=== PATIENT | male | born 1970 | race Caucasian/White ===

== ENCOUNTER 2023-06-09 10:46 | Inpatient (IN) ==
[2023-06-09] MEDS ORDERED: SODIUM CHLORIDE 0.9% 1,000 ML IV STA (11:25)
[2023-06-09] MEDS ORDERED: SODIUM CHLORIDE 0.9% 500 ML IV STA (11:25)
[2023-06-09] MEDS ORDERED: KETOROLAC TROMETHAMINE 15 MG/ML VIAL IV STA (11:25)
[2023-06-09] MEDS ORDERED: ONDANSETRON INJ 2 MG/ML 2 ML VIAL IV STA (11:25)
[2023-06-09 12:14] LABS: Albumin Globulin Ratio 0.9 (0.9-2); Albumin Level 2.9 gm/dl (3.4-5.0); BUN Creatinine Ratio 16.5 (10-20); Bilirubin,Total 0.6 mg/dl (0.2-1.0); Calcium 8.3 mg/dl (8.6-10.3); Creatinine Clr Calc Pharmacy 76.5 ml/min; Est GFR (African American) 110.3 ml/min; Est GFR (Non-African American) 95.2 ml/min; Globulin 3.3 gm/dl (2.5-4.0); Potassium 3.6 mmol/L (3.5-5.1); Total Protein 6.2 gm/dl (6.0-8.3)
[2023-06-09 12:20] LABS: INR 1.1 (0.9-1.1); Partial Thromboplastin Time 27.7 Seconds (21.0-31.0); Prothrombin Time 12.4 Seconds (9.0-12.0); Troponin I High Sensitivity 21.6 pg/ml (0-20)
[2023-06-09 12:53] LABS: Hematocrit (blood only) 37.8 % (42.0-52.0); Hemoglobin 13.2 g/dl (14.0-18.0); Mean Corpuscular Hemoglobin 30.1 pg (25.0-34.0); Mean Corpuscular Hgb Conc 34.9 g/dL (32.0-36.0); Mean Corpuscular Volume 86.3 fL (80.0-100.0); Mean Platelet Volume 10.1 fL (9.4-12.4); Platelet Count 562 K/uL (130-400); RDW Coefficient of Variation 12.2 % (11.5-14.5); RDW Standard Deviation 38.4 fL (36.4-46.3); Red Blood Count 4.38 M/uL (4.70-6.10); White Blood Count 14.55 K/ul (4.8-10.8)
[2023-06-09 12:59] LABS: ALC (manual) 0.73 K/uL (1.2-3.4); ANC (manual) 10.48 K/uL (1.4-6.5); Blast # (manual) 0.15 K/uL (0-0); Blast Cells % (manual) 1 %; Lymphocytes # (manual) 0.58 K/uL (1.2-3.4); Lymphocytes % (manual) 4 %; Metamyelocytes # (manual) 1.75 K/uL (0-0); Metamyelocytes % (manual) 12 %; Monocytes # (manual) 1.31 K/uL (0.11-0.59); Monocytes % (manual) 9 %; Myelocytes # (manual) 0.15 K/uL (0-0); Myelocytes % (manual) 1 %; Neutrophils # (manual) 10.48 K/uL (1.40-6.50); Neutrophils % (manual) 72 %; Plasma Cells # (manual) 0.15 K/uL (0-0); Plasma Cells % (manual) 1 %; RBC Morphology Unremarkable
[2023-06-09] MEDS ORDERED: OPTIRAY 320 100ml IV ONE (13:57)
--- NOTE | 2023-06-09 14:36 | CT Scan Report ---
CT OF THE ABDOMEN AND PELVIS WITH CONTRAST CLINICAL HISTORY: Abdominal pain and vomiting. Rectal bleeding. COMPARISON STUDY: None. TECHNIQUE: Following IV administration of 93 mL of Optiray, axial images of the abdomen and pelvis we re obtained from the lung bases to the proximal femurs. Images were reviewed in the axial, sagittal, and coronal planes. IV contrast was administered without complication. Automated exposure control wa s utilized for the study. A dose lowering technique was utilized adhering to the principles of ALARA . Oral contrast was administered. CT DOSE: 488.99 mGy.cm FINDINGS: Lung bases are unremarkable. No pneumatosis, free air or portal venous gas is present. Susp ected focal fat within the medial segment of the left hepatic lobe is noted. There is no biliary or p ancreatic ductal dilatation. Spleen, adrenal glands, kidneys and pancreas are unremarkable. There is no hydronephrosis. There is no evidence for acute appendicitis. There is moderate circumferential wal l thickening of the colon with mild pericolonic stranding. The pericolonic vessels are prominent. The re may be mild rectal wall thickening. The colon and rectum are mildly fluid-filled. There is no evid ence for a bowel obstruction. Major vasculature is patent. There is moderate plaque within the abdomi nal aorta. No fluid collections are present. There is trace fluid within the pelvis. IMPRESSION: Findings consistent with a pancolitis, moderate in severity. This is likely infectious o r inflammatory in etiology. No abscess. Trace pelvic fluid. ACT 112: Negative or not required by law. Electronically signed by: Andres Amanda M.D. 06/09/2023 2:34 PM
--- NOTE | 2023-06-09 16:19 | History & Physical Report ---
Date of Service June 09, 2023 Assessment & Plan (1) Pancolitis: Plan: Pancolitis, diarrhea, hematochezia - CT-A/P: Findings consistent with a pancolitis, moderate in severity. This is likely infectious or inflammatory in etiology. No abscess. Trace pelvic fluid. Case reviewed by GI Dr. Pruitt. Recommend deferring antibiotics until stool testing is resulted, GI consultation. No history of recent antibiotic use. No prior history of C. difficile. Denies history of IBD, denies family history of IBD Patient does report he had 1 episode of this around 5 years ago which spontaneously resolved after approximately 1 month Blast cell noted on cell differential, was reviewed by Dr. Suarez. Recommended peripheral smear, while some plasma cells/blast cells are noted these are likely reflective of underlying inflammation. Does not require transfer Leukocytosis of 14.5 Creatinine with normal baseline, 0.91 on admission Potassium 3.6, trend daily COVID-negative N.p.o., LR 100 cc/h Present records reviewed, HIV negative. History of iron deficiency with low ferritin and transferrin saturation. Hemoglobin is 13.2 and borderline microcytic at 86. Once active infection is treated can start on iron therapy Hematochezia likely from pancolitis, do not suspect upper GI bleed. Patient does report history of sour stomach, will continue on daily PPI prophylax (2) Elevated troponin: Plan: Elevated troponin 21.6, repeat normalized at 10.9 EKG: Sinus without territorial ischemic changes No chest pain per patient Following medical telemetry Endorses tobacco use, denies history of hypertension/[place]/CAD. Suspected stress ischemia Plan DVT prophylaxis: SCDs, heparin contraindicated in the setting of hematochezia CODE STATUS: Full code Disposition: Medical telemetry for troponin elevation and monitor Diet: N.p.o. History of Present Illness Primary Care Provider: IVIS Galan is a 53-year-old male with a past medical history of Who presented with nausea/vomiting is found to have pancolitis on CT "Mouse" reports he has had diarrhea for the last month. Has been bright red, dark red, and sometimes dark/black. Nause+vomiting in the last month. Is throwing up less because he is not eating much. Hasn't kep tfood down well since April. Had belly button pain x1 months. Water makes pain worse. Food makes gas pains a little better, but then gets nauseus and vomits. Vomit is 'whatever I ate' and was very dark-leonel black one time, but otherwise no blood. Last BM right before coming over. Loose/liquid. Less since not eating. 8-12BMs per day. no recent antibiotic treatment. Had a similar episode 5-6 eyars ago which got better in about 1 month. Did not have any workup at that time. Denies fevers, denies chills. No chest pain. No chest pressure Belly button/pit of stomach feels sour. No shortness of breath on admission No FHx of similar. Denies any medical problems in his familiy members. Denies prior medical problems. Denies history of IBS prior to now Medical History: Reviewed Medications: Reviewed Surgical History: Reviewed Family history: Reviewed Allergies: Reviewed. NKDA. Social History: Ecigarettes while in prisonlast 2 years. Prior 1ppd ~s46yllzo. Denies ETOH. Code Status: Full Code Allergies Allergy/AdvReac Type Severity Reaction Status Date / Time No Known Allergies Allergy Unverified 06/09/23 15:59 Home Medications Medication Instructions Recorded Confirmed Type bisacodyl 5 mg tablet 20 mg PO DAILY 06/09/23 06/09/23 History loperamide 2 mg tablet 2 mg PO UD PRN Diarrhea 06/09/23 06/09/23 History metoclopramide HCl 5 mg tablet 5 mg PO TID PRN as directed 06/09/23 06/09/23 History Past Med/Surg History Social History Smoking Status: Current every day smoker Feels Safe at Home: Yes Physical Exam Physical Exam: General: A&Ox3. NAD. Cooperative. HEENT: Atraumatic, normocephalic. Vision/hearing grossly intact. Pulm: CTAB A&P. -wheezes, -rales, -rhonchi. Symmetrical chest rise. No increased work of breathing. No respiratory distress. Cardiac: RRR, -mrg. Radial pulses intact and symmetrical. Abdominal: Soft .diffusely mildly tender to palpation without guarding/rebound tenderness. Extremities: Warm, dry. No edema. Results & Data Results & Data Vital Signs (Past 12 Hours) Vital Signs Temp Pulse Pulse Resp BP BP Pulse Ox 06/09/23 15:02 78 16 115/67 95 06/09/23 11:01 18 144/85 H 98 06/09/23 12:23 83 06/09/23 10:53 36.8 C 108 H 18 125/85 96 O2 Del Method 06/09/23 15:02 Room Air 06/09/23 11:01 Room Air 06/09/23 12:23 06/09/23 10:53 Room Air PG Care Time/CCT Total # of Minutes Spent Total Time Spent with Patient: Total time spent is greater than 50% in coordination of care (as documented) at patient's floor/unit and/or counseling patient: Coding Level of Care Code 74483 INT INP/OBS CARE 3/75MIN Diagnoses Pancolitis K51.00 Elevated troponin R77.8
--- NOTE | 2023-06-09 17:14 | Emergency Department Note ---
Impression & Plan Pancolitis, Elevated troponin, Leukocytosis ED Provider Note INFORMANT: Patient ED PROVIDER(S): Estuardo Jade MD CHIEF COMPLAINT: Abdominal pain and rectal bleeding PLAN: Disposition: Admitted Condition: Good Outpatient prescription management: none Referral: None MEDICAL DECISION MAKING: Patient present because of abdominal pain rectal bleeding. He has generalized tenderness on examination. Patient was treated with fluids, Zofran, and Toradol. Work-up was initiated. Patient was found to have a leukocytosis on CBC. Differential did show a left shift but he also had 1 blast cell[address] Patient underwent CT imaging and was found to have a pancolitis. Stool testing was ordered. Patient had ECG performed and had a nonspecific findings but no chest pain. Patient did have a borderline troponin. I did discuss the case with Dr. Pruitt of gastroenterology. He recommended stool testing before antibiotic administration and they will consult on the patient. Because of the black so I did discuss the case with Dr. Suarez of hematology. [place] that this was likely related to the inflammatory process going on from the GI standpoint. Did recommend official peripheral smear with path consult. This was ordered. Consultation was made with Dr. Angel Hinojosa of the [facility] service. Patient was evaluated in the ER for further management. Discussed with manager business systems After review of the information above and other included data, I feel the patien t requires admission. Triage Nursing notes reviewed and agree them. Vital Signs: reviewed and remarkable for no significant abnormalities Prior /Outside records reviewed: [facility] records were reviewed. Outpatient CBC unremarkable. Differential diagnosis: Etiologies such as gastroenteritis, food borne illness, infections, appendicitis, diverticulitis, inflammatory bowel disease, GI bleed, biliary pathology, as well as others were entertained. Diagnostics, as interpreted by me: ECG: Twelve-lead ECG reveals a sinus rhythm at [address] Prolonged QT interval Cardiac Monitoring: Cardiac monitoring ordered by me: The patient was placed on continuous cardiac monitoring and observed. It revealed a normal sinus rhythm at 70 beats per minute without ectopy or evidence of dysrhythmia. Medical decision rules: none Imaging studies: CT scan as above. Pancolitis. I refer you to the EMR for further details. HPI: The patient is a 53year old male prisoner who presents to the Emergency Room with complaints of rectal bleeding and abdominal pain. This started about 4 weeks ago and is worsening and the patient also noted about a 30 pound weight loss, nausea, vomiting, and poor appetite. Patient was sent to the emergency department for further evaluation. Pt denies LOC, headache, fevers, chills, diaphoresis, visual changes, neck pain, chest pain, breathing difficulties, back pain, melena, urinary symptoms, numbness, weakness, lymphadenopathy, rash, or other complaints. PAST MEDICAL HISTORY: See Below, patient denies GI history PAST SURGICAL HISTORY: See Below, denies abdominal surgery SOCIAL HISTORY: See Below, incarcerated HOME MEDICATIONS: See Below ALLERGIES: See Below VITALS: See Below PHYSICAL EXAMINATION: GENERAL: Awake, alert, mildly cachectic-appearing, in no distress HENT: Normocephalic, atraumatic. Oropharynx unremarkable. EYES: Normal conjunctiva. Sclera non-icteric. NECK: Inspection normal. Non-tender. Supple. No nuchal rigidity. FROM. No masses. RESPIRATORY: Clear to auscultation. No wheezes. No rales. Normal respiratory effort. CARDIAC: Normal rate. Normal rhythm. No murmurs. No rubs. Extremities warm and well perfused. Pulses equal. No JVD. GI: Soft, non-distended. Generalized tenderness to palpation. No rebound or guarding. No masses. RECTAL: Deferred. MUSCULOSKELETAL: Atraumatic. Chest examination reveals no tenderness. The back is symmetrical on inspection without obvious abnormality. There is no CVA tenderness to palpation. No joint edema. LOWER EXTREMITIES: Calves are equal size bilaterally and non-tender. No edema. No discoloration. NEURO: Normal sensorium. No sensory or motor deficits noted. SKIN: No rash or jaundice noted. Past Med/Surg History Social History Smoking Status: Current every day smoker Feels Safe at Home: Yes Allergies Allergies Allergy/AdvReac Type Severity Reaction Status Date / Time No Known Allergies Allergy Unverified 06/09/23 15:59 Home Meds Home Medications Medication Instructions Recorded Confirmed bisacodyl 5 mg tablet 20 mg PO DAILY 06/09/23 06/09/23 loperamide 2 mg tablet 2 mg PO UD PRN Diarrhea 06/09/23 06/09/23 metoclopramide HCl 5 mg tablet 5 mg PO TID PRN as directed 06/09/23 06/09/23 Results & Data (ED) Vital Signs Vital Signs - 24 hr 06/09/23 10:53 06/09/23 12:23 06/09/23 11:01 Temperature 36.8 C Temperature Source Temporal Artery Scan Pulse Rate 108 H 83 Pulse Rate [Left] Respiratory Rate 18 18 Respiratory Effort / Characteristics Non-Labored Spontaneous Non-Labored Respiratory Depth Normal Normal Respiratory Pattern Regular Blood Pressure 125/85 Blood Pressure [Left Arm] 144/85 H Blood Pressure Mean 98 Blood Pressure Mean [Left Arm] 104 Blood Pressure Position Sitting Blood Pressure Position [Left Arm] Sitting Pulse Oximetry 96 98 Oxygen Delivery Method Room Air Room Air Sepsis Recent Fever Within 48 Hours No Sepsis New/Unexplained Change in Mental Status N/A Sepsis Action Taken by Nursing No Action Required 06/09/23 15:02 Temperature Temperature Source Pulse Rate Pulse Rate [Left] 78 Respiratory Rate 16 Respiratory Effort / Characteristics Respiratory Depth Respiratory Pattern Blood Pressure Blood Pressure [Left Arm] 115/67 Blood Pressure Mean Blood Pressure Mean [Left Arm] 83 Blood Pressure Position Blood Pressure Position [Left Arm] Pulse Oximetry 95 Oxygen Delivery Method Room Air Sepsis Recent Fever Within 48 Hours Sepsis New/Unexplained Change in Mental Status Sepsis Action Taken by Nursing Laboratory Data 06/09/23 11:15 06/09/23 11:15 Lab Results 06/09/23 06/09/23 06/09/23 Range/Units 11:15 11:15 11:15 WBC 14.55 H (4.8-10.8) K/ul RBC 4.38 L (4.70-6.10) M/uL Hgb 13.2 L (14.0-18.0) g/dl Hct 37.8 L (42.0-52.0) % MCV 86.3 (80.0-100.0) fL MCH 30.1 (25.0-34.0) pg MCHC 34.9 (32.0-36.0) g/dL RDW Std Deviation 38.4 (36.4-46.3) fL RDW Coeff of Ashley 12.2 (11.5-14.5) % Plt Count 562 H (130-400) K/uL MPV 10.1 (9.4-12.4) fL Neutrophils % (Manual) 72 % Lymphocytes % (Manual) 4 % Monocytes % (Manual) 9 % Metamyelocytes % (Man) 12 % Myelocytes % (Man) 1 % Blast Cells % (Manual) 1 % Plasma Cell % (Manual) 1 % Neutrophils # (Manual) 10.48 H (1.40-6.50) K/uL Total Absolute Neuts 10.48 H (1.4-6.5) K/uL Lymphocytes # (Manual) 0.58 L (1.2-3.4) K/uL Total Abs Lymphocytes 0.73 L (1.2-3.4) K/uL Monocytes # (Manual) 1.31 H (0.11-0.59) K/uL Metamyelocytes # (Man) 1.75 H (0-0) K/uL Myelocytes # (Manual) 0.15 H (0-0) K/uL Blast Cells # (Man) 0.15 H (0-0) K/uL Plasma Cell # (Manual) 0.15 H (0-0) K/uL Blood Smear Review RBC Morphology Unremarkable PT 12.4 H (9.0-12.0) Seconds INR 1.1 (0.9-1.1) APTT 27.7 (21.0-31.0) Seconds PTT Ratio 1.0 Sodium 130 L (136-145) mmol/L Potassium 3.6 (3.5-5.1) mmol/L Chloride 89 L (98-107) mmol/L Carbon Dioxide 32 (21-32) mmol/L Anion Gap 9 (3-11) BUN 15 (6-23) mg/dl Creatinine 0.91 (0.6-1.4) mg/dl Est Cr Clr Drug Dosing 76.5 ml/min Est GFR ( Amer) 110.3 ml/min Est GFR (Non-Af Amer) 95.2 ml/min BUN/Creatinine Ratio 16.5 (10-20) Glucose 152 H (70-99(Fasting)) mg/dl Calcium 8.3 L (8.6-10.3) mg/dl Total Bilirubin 0.6 (0.2-1.0) mg/dl AST 15 (13-39) U/L ALT 12 (7-52) U/L Alkaline Phosphatase 70 (34-104) U/L Troponin I High Sens 21.6 H (0-20) pg/ml Total Protein 6.2 (6.0-8.3) gm/dl Albumin 2.9 L (3.4-5.0) gm/dl Globulin 3.3 (2.5-4.0) gm/dl Albumin/Globulin Ratio 0.9 (0.9-2) Lipase 28 (11-82) U/L SARS-CoV-2, RNA, NAAT (NEGATIVE) Blood Type Antibody Screen 06/09/23 06/09/23 06/09/23 Range/Units 11:40 12:27 14:06 WBC (4.8-10.8) K/ul RBC (4.70-6.10) M/uL Hgb (14.0-18.0) g/dl Hct (42.0-52.0) % MCV (80.0-100.0) fL MCH (25.0-34.0) pg MCHC (32.0-36.0) g/dL RDW Std Deviation (36.4-46.3) fL RDW Coeff of Ashley (11.5-14.5) % Plt Count (130-400) K/uL MPV (9.4-12.4) fL Neutrophils % (Manual) % Lymphocytes % (Manual) % Monocytes % (Manual) % Metamyelocytes % (Man) % Myelocytes % (Man) % Blast Cells % (Manual) % Plasma Cell % (Manual) % Neutrophils # (Manual) (1.40-6.50) K/uL Total Absolute Neuts (1.4-6.5) K/uL Lymphocytes # (Manual) (1.2-3.4) K/uL Total Abs Lymphocytes (1.2-3.4) K/uL Monocytes # (Manual) (0.11-0.59) K/uL Metamyelocytes # (Man) (0-0) K/uL Myelocytes # (Manual) (0-0) K/uL Blast Cells # (Man) (0-0) K/uL Plasma Cell # (Manual) (0-0) K/uL Blood Smear Review RBC Morphology PT (9.0-12.0) Seconds INR (0.9-1.1) APTT (21.0-31.0) Seconds PTT Ratio Sodium (136-145) mmol/L Potassium (3.5-5.1) mmol/L Chloride (98-107) mmol/L Carbon Dioxide (21-32) mmol/L Anion Gap (3-11) BUN (6-23) mg/dl Creatinine (0.6-1.4) mg/dl Est Cr Clr Drug Dosing ml/min Est GFR ( Amer) ml/min Est GFR (Non-Af Amer) ml/min BUN/Creatinine Ratio (10-20) Glucose (70-99(Fasting)) mg/dl Calcium (8.6-10.3) mg/dl Total Bilirubin (0.2-1.0) mg/dl AST (13-39) U/L ALT (7-52) U/L Alkaline Phosphatase (34-104) U/L Troponin I High Sens 10.9 D (0-20) pg/ml Total Protein (6.0-8.3) gm/dl Albumin (3.4-5.0) gm/dl Globulin (2.5-4.0) gm/dl Albumin/Globulin Ratio (0.9-2) Lipase (11-82) U/L SARS-CoV-2, RNA, NAAT NEGATIVE (NEGATIVE) Blood Type A Negative Antibody Screen NEGATIVE Administered Medications Sodium Chloride (Nss) 1,000 mls @ 125 mls/hr IV .Q8H STA Stop: 06/09/23 19:24 Last Admin: 06/09/23 12:18 Dose: 125 mls/hr Documented By: MT Discontinued Medications Sodium Chloride (Nss) 500 mls @ 999 mls/hr IV .Q31M STA Stop: 06/09/23 11:55 Last Infusion: 06/09/23 13:19 Dose: 0 mls/hr Documented By: Admin: 06/09/23 12:19 Dose: 999 mls/hr Documented By: GLEN Ioversol (Optiray 320 100ml) 93 ml IV ONCE ONE Stop: 06/09/23 13:58 Last Admin: 06/09/23 13:54 Dose: 93 ml Documented By: ABBY Ketorolac Tromethamine (Ketorolac Tromethamine 15 Mg/Ml Vial) 10 mg IV NOW STA Stop: 06/09/23 11:26 Last Admin: 06/09/23 12:17 Dose: 10 mg Documented By: MT Ondansetron HCl (Ondansetron Inj 2 Mg/Ml 2 Ml Vial) 4 mg IV NOW STA Stop: 06/09/23 11:26 Last Admin: 06/09/23 12:17 Dose: 4 mg Documented By: MT Imaging Data Radiologist's Impression: Abdomen/Pelvis CT 06/09/23 11:26 CT OF THE ABDOMEN AND PELVIS WITH CONTRAST CLINICAL HISTORY: Abdominal pain and vomiting. Rectal bleeding. COMPARISON STUDY: None. TECHNIQUE: Following IV administration of 93 mL of Optiray, axial images of the abdomen and pelvis were obtained from the lung bases to the proximal femurs. Images were reviewed in the axial, sagittal, and coronal planes. IV contrast was administered without complication. Automated exposure control was utilized for the study. A dose lowering technique was utilized adhering to the principles of ALARA. Oral contrast was administered. CT DOSE: 488.99 mGy.cm FINDINGS: Lung bases are unremarkable. No pneumatosis, free air or portal venous gas is present. Suspected focal fat within the medial segment of the left hepatic lobe is noted. There is no biliary or pancreatic ductal dilatation. Spleen, adrenal glands, kidneys and pancreas are unremarkable. There is no hydronephrosis. There is no evidence for acute appendicitis. There is moderate circumferential wall thickening of the colon with mild pericolonic stranding. The pericolonic vessels are prominent. There may be mild rectal wall thickening. The colon and rectum are mildly fluid-filled. There is no evidence for a bowel obstruction. Major vasculature is patent. There is moderate plaque within the abdominal aorta. No fluid collections are present. There is trace fluid within the pelvis. IMPRESSION: Findings consistent with a pancolitis, moderate in severity. This is likely infectious or inflammatory in etiology. No abscess. Trace pelvic fluid. ACT 112: Negative or not required by law. Electronically signed by: Andres Amanda M.D. 06/09/2023 2:34 PM Discharge Plan Visit Data Chief Complaint: Vomiting Stated Complaint: VOMITING ED Provider: Estuardo Jade Discharge Problem: Pancolitis, Elevated troponin, Leukocytosis Forms Stand Alone Forms: My [facility] [employer] Prescriptions Prescriptions: No Action loperamide [Anti-Diarrhea] 2 mg Tablet 2 mg PO UD MDD 4 tablets daily PRN (Reason: Diarrhea) Rx Instructions: take 1 tablet after each stool as needed but no more than 4 a day metoclopramide HCl 5 mg Tablet 5 mg PO TID PRN (Reason: as directed) bisacodyl 5 mg Tablet 20 mg PO DAILY Rx Instructions: 4 tablet dose Referrals Referrals: Sincere LANGSTON [Primary Care Provider] -
[2023-06-09 19:14] LABS: Adenovirus F 40/41 PCR Not Detected (NotDetected); Astrovirus PCR Not Detected (NotDetected); Campylobacter PCR Not Detected (NotDetected); Cryptosporidium PCR Not Detected (NotDetected); Cyclospora cayetanensis PCR Not Detected (NotDetected); Entamoeba histolytica PCR Not Detected (NotDetected); Enteroaggregative E.coli(EAEC) Not Detected (NotDetected); Enteropathogenic E.coli (EPEC) Not Detected (NotDetected); Enterotoxigenic E.coli (ETEC) Not Detected (NotDetected); Giardia lamblia PCR Not Detected (NotDetected); Norovirus GI/GII PCR Not Detected (NotDetected); Plesiomonas shigelloides PCR Not Detected (NotDetected); Rotavirus A PCR Not Detected (NotDetected); Salmonella PCR Not Detected (NotDetected); Sapovirus PCR Not Detected (NotDetected); Shiga-like Toxin E.coli (STEC) Not Detected (NotDetected); Shigella/Enteroinvasive E.coli Not Detected (NotDetected); Vibrio cholerae PCR Not Detected (NotDetected); Vibrio species PCR Not Detected (NotDetected); Yersinia enterocolitica PCR Not Detected (NotDetected)
[2023-06-09 21:28] LABS: Appearance Urine Clear (Clear); Bacteria Urine Automated Negative (Negative); Blood Urine Negative (Negative); Cast Urine Automated 0 /lpf (0-5); Color Urine Dark Yellow; Epithelial Cell Urine Auto >30 /lpf (0-5); Glucose Urine UA Negative (Negative); Ketones Urine Trace (Negative); Leukocyte Esterase Urine Negative (Negative); Nitrite Urine Negative (Negative); Protein Urine 1+ (Negative); Specific Gravity Urine > 1.045 (1.000-1.030); Urobilinogen Urine Negative (Negative); pH Urine 6.5 (4.5-7.5)
[2023-06-09 21:30] LABS: Bilirubin Urine 1+ (Negative)
[2023-06-09] MEDS ORDERED: MoRPHine SULFATE 2 MG/ML CARP IV STA (22:29)
[2023-06-09] MEDS: LACTATED RINGER'S 1,000 ML IV SCH (23:30)
[2023-06-10] MEDS: ONDANSETRON INJ 2 MG/ML 2 ML VIAL IV PRN ×2 (05:24→21:03)
[2023-06-10 06:26] LABS: BUN Creatinine Ratio 16.9 (10-20); Calcium 7.9 mg/dl (8.6-10.3); Creatinine Clr Calc Pharmacy 87.2 ml/min; Est GFR (African American) 119.2 ml/min; Est GFR (Non-African American) 102.9 ml/min; Potassium 3.8 mmol/L (3.5-5.1)
[2023-06-10 06:52] LABS: Basophils # (auto) 0.03 K/uL (0.00-0.20); Basophils % (auto) 0.2 %; Echinocytes 1+; Eosinophils # (auto) 0.01 K/uL (0.00-0.50); Eosinophils % (auto) 0.1 %; Hemoglobin 12.5 g/dl (14.0-18.0); Immature Granulocytes # (auto) 0.23 K/uL (0.01-0.20); Immature Granulocytes % (auto) 1.3 %; Lymphocytes % (auto) 6.3 %; Mean Corpuscular Hemoglobin 29.8 pg (25.0-34.0); Mean Corpuscular Hgb Conc 33.8 g/dL (32.0-36.0); Mean Corpuscular Volume 88.1 fL (80.0-100.0); Mean Platelet Volume 10.2 fL (9.4-12.4); Monocytes # (auto) 1.11 K/uL (0.11-0.59); Monocytes % (auto) 6.4 %; Neutrophils # (auto) 14.85 K/uL (1.40-6.50); Neutrophils % (auto) 85.7 %; Platelet Count 536 K/uL (130-400); Polychromasia 1+; RDW Coefficient of Variation 12.2 % (11.5-14.5); RDW Standard Deviation 39.1 fL (36.4-46.3); White Blood Count 17.33 K/ul (4.8-10.8)
[2023-06-10] MEDS: LACTATED RINGER'S 1,000 ML IV SCH ×2 (07:43→15:36)
[2023-06-10] MEDS: MoRPHine SULFATE 2 MG/ML CARP IV PRN ×4 (07:47→21:08)
[2023-06-10] MEDS: ACETAMINOPHEN 1,000 MG/100 ML VIAL IV PRN (09:21)
--- NOTE | 2023-06-10 09:22 | Gastrointestinal Consultation ---
Date of Consultation June 10, 2023 Assessment & Plan (1) Pancolitis: Patient with one month history of abdominal pain and bloody diarrhea. CT suggestive of moderate pancolitis. stool biofire testing unremarkable. discussed case with Dr. Pruitt. - discussed colonoscopy with patient and he was agreeable to having done. - will start clear liquids today and prep today with plan to perform a colonoscopy tomorrow 06/11. Supervising Physician Co-Signing Physician Notes Agree with CAS Martel as above Abd: Soft, NT, ND, +BS Continue current therapy and supportive care Bowel prep today, then NPO Colonoscopy in AM History of Present Illness Reason for Consultation: Pancolitis Requesting Physician: Angel Hinojosa MD Attending Physician: Tj Keller MD History of Present Illness Patient is a 53 year old male who currently is incarcerated at [facility]. He tells me that over the past month he has had symptoms of abdominal pain that is diffuse and bloody diarrhea. He admits he can have as many as 12 bowel movements a day. This has effected his appetite. He tells me symptoms can be worse with eating. Admits to periodic nausea/vomiting, but he admits this has not been as much of an issue lately. He tells me he is getting pain control while inpatient. He had a similar episode back in 2016 that he tells me lasted for a month and then resolved on its own. He was brought to the ED for evaluation and had a CT done showing pancolitis that is moderate in severity, likely infectious or inflammatory in nature. Stool biofire testing unremarkable. he denies any family history of IBD. He denies nsaid use. he tells me he has never had any endoscopic evaluation. he denies any dysphagia, heartburn, or melena. Two guards from the long-term were present for history taking and physical exam. Allergies Allergy/AdvReac Type Severity Reaction Status Date / Time No Known Allergies Allergy Unverified 06/09/23 15:59 Home Medications Medication Instructions Recorded Confirmed Type bisacodyl 5 mg tablet 20 mg PO DAILY 06/09/23 06/09/23 History loperamide 2 mg tablet 2 mg PO UD PRN Diarrhea 06/09/23 06/09/23 History metoclopramide HCl 5 mg tablet 5 mg PO TID PRN as directed 06/09/23 06/09/23 History Patient History Social History Smoking Status: Current every day smoker Tobacco Type: E-cigarettes / Vaping Hx Alcohol Use: No Hx Substance Use: No Preferred Language: Frisian Communication Ability: Effective Market Relationship Manager Required: No Beliefs That Will Affect Care: None Current Living Situation: Other Current Living Situation Comment: Correctional facility Feels Safe at Home: Yes Assistive Devices: Hearing Aid - Bilateral Review of Systems Review of Systems: All systems reviewed & are unremarkable except as noted in HPI & below Physical Exam Constitutional: WD/WN, vitals as above ENMT: patient is hard of hearing. uses hearing aids. Respiratory: normal respiratory effort, lungs clear to auscultation Cardiovascular: RRR, no murmur, no edema Gastrointestinal (Abdomen): diffuse tenderness to palpation, no guarding, soft. normal bowel sounds. Skin: no rashes, warm and dry Psychiatric: Orientation: alert and oriented x 3 Results & Data Vital Signs (Past 12 Hours) Vital Signs Temp Pulse Pulse Pulse Resp BP Pulse Ox 06/10/23 07:25 98 H 06/10/23 07:10 98.1 F 98 H 18 127/76 97 06/10/23 03:37 98.4 F 96 H 16 106/68 96 06/09/23 23:12 92 H 06/09/23 23:00 90 18 135/81 93 06/09/23 22:54 94 H 18 95 06/09/23 22:39 95 H 16 96 O2 Del Method 06/10/23 07:25 06/10/23 07:10 Room Air 06/10/23 03:37 Room Air 06/09/23 23:12 06/09/23 23:00 Room Air 06/09/23 22:54 Room Air 06/09/23 22:39 Room Air PG Care Time/CCT Total # of Minutes Spent Total Time Spent with Patient: Total time spent is greater than 50% in coordination of care (as documented) at patient's floor/unit and/or counseling patient: Coding Level of Care Code 18794 IN/OBS CONSULT LVL 4,60M Diagnoses Pancolitis K51.00 Time Spent (min) 64
--- NOTE | 2023-06-10 09:26 | Hospitalist Progress Note ---
Date of Service June 10, 2023 Assessment & Plan (1) Pancolitis: Plan: Pancolitis, diarrhea, hematochezia - CT-A/P: Findings consistent with a pancolitis, moderate in severity. Case reviewed by GI Dr. Pruitt. Recommend deferring antibiotics until stool testing is resulted, GI consultation. No history of recent antibiotic use. No prior history of C. difficile. - stool biofire, Covid and C Diff NEGATIVE Blast cell noted on cell differential, was reviewed by Dr. Suarez. Recommended peripheral smear, while some plasma cells/blast cells are noted these are likely reflective of underlying inflammation. clear liquid diet npo after mn, LR 100 cc/h Present records reviewed, HIV negative. History of iron deficiency with low ferritin and transferrin saturation. Hemoglobin is 13.2 and borderline microcytic at 86. Once active infection is treated can start on iron therapy Hematochezia likely from pancolitis, do not suspect upper GI bleed. prep for colonoscopy 06/11 ordered by Gastroenterology (2) Elevated troponin: Plan: Elevated troponin 21.6, repeat normalized at 10.9 EKG: Sinus without territorial ischemic changes No chest pain per patient Endorses tobacco use, denies history of hypertension/[place]/CAD. Suspected demand ischemia Plan DVT prophylaxis: SCDs, heparin contraindicated in the setting of hematochezia CODE STATUS: Full code Admission and Anticipated Discharge Date Admission Date: June 09, 2023 Subjective pt is with persistent diarrhea, has epigastric and LLQ abdominal pain tenative colonoscopy on 06/11/23 Physical Exam Physical Exam: pt is with abdominal pain, mostly LLQ pain Results & Data Results & Data Vital Signs (Past 12 Hours) Vital Signs Temp Pulse Pulse Pulse Resp BP Pulse Ox 06/10/23 07:25 98 H 06/10/23 07:10 98.1 F 98 H 18 127/76 97 06/10/23 03:37 98.4 F 96 H 16 106/68 96 06/09/23 23:12 92 H 06/09/23 23:00 90 18 135/81 93 06/09/23 22:54 94 H 18 95 06/09/23 22:39 95 H 16 96 O2 Del Method 06/10/23 07:25 06/10/23 07:10 Room Air 06/10/23 03:37 Room Air 06/09/23 23:12 06/09/23 23:00 Room Air 06/09/23 22:54 Room Air 06/09/23 22:39 Room Air Laboratory Results reviewed cbc reviewed prp PG Care Time/CCT Total # of Minutes Spent Total Time Spent with Patient: Total time spent is greater than 50% in coordination of care (as documented) at patient's floor/unit and/or counseling patient: Coding Level of Care Code 57353 SUB INP/OBS CARE 2/35MIN Diagnoses Pancolitis K51.00 Elevated troponin R77.8
[2023-06-10] MEDS: PANTOprazole 40 MG in SYRINGE 0 ML IV SCH (12:12)
[2023-06-10] MEDS: LAVAGE SOLUTION 4000ML PO SCH ×2 (15:36→22:20)
[2023-06-10] MEDS ORDERED: FAMOTIDINE 20 MG in SYRINGE 3 ML IV STA (22:12)
[2023-06-11] MEDS ORDERED: ONDANSETRON INJ 2 MG/ML 2 ML VIAL IV STA (00:34)
[2023-06-11] MEDS: LACTATED RINGER'S 1,000 ML IV SCH ×3 (00:59→17:34)
[2023-06-11] MEDS ORDERED: Nursing to Pharmacy Communication SCH (02:00)
[2023-06-11] MEDS: ONDANSETRON INJ 2 MG/ML 2 ML VIAL IV PRN ×2 (04:03→19:18)
[2023-06-11 06:28] LABS: Basophils # (auto) 0.01 K/uL (0.00-0.20); Basophils % (auto) 0.1 %; Dohle Bodies 1+; Echinocytes 1+; Eosinophils # (auto) 0.02 K/uL (0.00-0.50); Eosinophils % (auto) 0.1 %; Hematocrit (blood only) 31.3 % (42.0-52.0); Hemoglobin 10.8 g/dl (14.0-18.0); Immature Granulocytes # (auto) 0.21 K/uL (0.01-0.20); Immature Granulocytes % (auto) 1.5 %; Lymphocytes # (auto) 0.89 K/uL (1.20-3.40); Lymphocytes % (auto) 6.3 %; Mean Corpuscular Hemoglobin 30.1 pg (25.0-34.0); Mean Corpuscular Hgb Conc 34.5 g/dL (32.0-36.0); Mean Corpuscular Volume 87.2 fL (80.0-100.0); Mean Platelet Volume 9.8 fL (9.4-12.4); Monocytes # (auto) 1.13 K/uL (0.11-0.59); Neutrophils # (auto) 11.86 K/uL (1.40-6.50); Platelet Count 517 K/uL (130-400); RDW Coefficient of Variation 12.6 % (11.5-14.5); Red Blood Count 3.59 M/uL (4.70-6.10); Toxic Granulation 1+; Toxic Vacuolation 1+; White Blood Count 14.12 K/ul (4.8-10.8)
[2023-06-11 06:36] LABS: BUN Creatinine Ratio 17.1 (10-20); Calcium 7.4 mg/dl (8.6-10.3); Potassium 3.7 mmol/L (3.5-5.1)
--- NOTE | 2023-06-11 08:57 | Anesthesiology Consultation ---
Date of Service June 11, 2023 Assessment & Plan (1) Encounter for pre-operative examination: Chart Review Chart Review: Acceptable Risk for Surgery, Patient NOT seen in Pre Admission Testing and entry operator initiated Consults Requested none Proposed Anesthesia Anesthesia Type: MAC History Surgery Operation Date: 06/11/23 16:30 Proposed Procedures p Colonoscopy Dr. Edmond Walker Case, DO Height/Weight Height: 5 ft 4 in Weight: 60.781 kg Allergies Allergy/AdvReac Type Severity Reaction Status Date / Time No Known Allergies Allergy Unverified 06/09/23 15:59 Medications Home Medications Medication Instructions Recorded Confirmed Last Taken bisacodyl 5 mg tablet 20 mg PO DAILY 06/09/23 06/09/23 Unknown loperamide 2 mg tablet 2 mg PO UD PRN Diarrhea 06/09/23 06/09/23 Unknown metoclopramide HCl 5 mg tablet 5 mg PO TID PRN as directed 06/09/23 06/09/23 Unknown Active Medications Generic Name Dose Route Start Last Admin Trade Name Freq PRN Reason Stop Dose Admin Acetaminophen 1,000 mg in 100 mls @ 400 mls/hr 06/09/23 23:04 06/10/23 09:54 Ofirmev IV 06/12/23 23:03 Infused Q8H PRN Infusion Fever/Mild Pain (Pain 1,2,3) Pantoprazole Sodium 40 mg/ 10 mls @ 5 mls/min 06/10/23 11:00 06/10/23 12:12 Syringe IV 07/10/23 10:59 5 mls/min DAILY@1100 HERNESTO Administration Lactated Ringer's 1,000 mls @ 125 mls/hr 06/09/23 23:04 06/11/23 00:59 Lr IV 07/09/23 23:03 125 mls/hr .Q8H HERNESTO Administration Morphine Sulfate 2 mg 06/09/23 23:04 06/10/23 21:08 Morphine Sulfate 2 Mg/Ml Carp IV 06/23/23 23:03 2 mg Q4H PRN Administration pain, 2nd line Ondansetron HCl 4 mg 06/09/23 23:04 06/11/23 04:03 Ondansetron Inj 2 Mg/Ml 2 Ml Vial IV 07/09/23 23:03 4 mg Q6H PRN Administration Nausea Past Medical History Medical History (Updated 06/11/23 @ 08:56 by Prince Hollis MD) Encounter for pre-operative examination Social History Smoking Status: Current every day smoker Hx Alcohol Use: No Hx Substance Use: No Physical Exam Vital Signs Last Vital Signs Temp 36.8 C 06/11/23 07:39 Pulse 91 H 06/11/23 07:39 Resp 18 06/11/23 07:39 BP 130/77 06/11/23 07:39 Pulse Ox 95 06/11/23 07:39 O2 Del Method Room Air 06/11/23 07:39 Testing Laboratory Results 06/11/23 05:20 06/11/23 05:20 PT 12.4 Seconds (9.0-12.0) H 06/09/23 11:15 INR 1.1 (0.9-1.1) 06/09/23 11:15 APTT 27.7 Seconds (21.0-31.0) 06/09/23 11:15 Urine Color Dark Yellow 06/09/23 20:54 Urine Appearance Clear (Clear) 06/09/23 20:54 Urine pH 6.5 (4.5-7.5) 06/09/23 20:54 Ur Specific [place] > 1.045 (1.000-1.030) H 06/09/23 20:54 Urine Protein 1+ (Negative) H 06/09/23 20:54 Urine Glucose (UA) Negative (Negative) 06/09/23 20:54 Urine Ketones Trace (Negative) H 06/09/23 20:54 Urine Nitrite Negative (Negative) 06/09/23 20:54 Ur Leukocyte Esterase Negative (Negative) 06/09/23 20:54 Urine WBC (Auto) 5-10 /hpf (0-5) H 06/09/23 20:54 Urine RBC (Auto) 5-10 /hpf (0-4) H 06/09/23 20:54 U Hyaline Cast (Auto) 0 /lpf (0-5) 06/09/23 20:54 U Epithel Cells (Auto) >30 /lpf (0-5) H 06/09/23 20:54 Urine Bacteria (Auto) Negative (Negative) 06/09/23 20:54 Blood Type A Negative 06/09/23 11:40 Antibody Screen NEGATIVE 06/09/23 11:40 Electrocardiogram Date: 06/09/23 6 09-JUN-2023 11:05:10 [facility]-EDSTAT ROUTINE RETRIEVAL Accelerated Junctional rhythm with retrograde conduction Nonspecific ST abnormality Prolonged QT Abnormal ECG No previous ECGs available 25mm/s10mm/[id number] 243CID: 19Unconfirmed Vent. rate 87 BPM OR interval * ms QRS duration 108 ms QT/QTc 406/488 ms.
--- NOTE | 2023-06-11 10:18 | Gastroenterology Progress Note ---
Date of Service June 11, 2023 Assessment & Plan (1) Pancolitis: Plan: I explained to the patient why the prep is needed. questions answered on the prep. I explained to the patient that we can reattempt the prep on Wednesday to have colonoscopy on Wednesday. I discussed the case with Dr. Pruitt. In the meantime, will start patient on solumedrol 40mg IV bid and assess how he does with this. Admission and Anticipated Discharge Date Admission Date: June 09, 2023 Supervising Physician Co-Signing Physician Notes Agree with CAS Martel as above Abd: Soft, NT, ND Continue current therapy and supportive care Added Solu-medrol 40 mg IV BID Will attempt colonoscopy on 06/14/2023 if patient can tolerate bowel prep Subjective Patient was to prep yesterday but did not complete this. Nursing tells me that he did not even drink a full glass of the prep. He tells me he is not sure why he had to drink the prep. he tells me he did have several bowel movements yesterday. he reports blood in them. He also reports continued abdominal pain. no reported nausea, vomiting, chest pain, or SOB. 06/11/23 hgb 10.8, hct 31.3, wbc 14.12, platelets 517 Physical Exam Constitutional: WD/WN, vitals as above Respiratory: normal respiratory effort, lungs clear to auscultation Cardiovascular: RRR, no murmur, no edema Gastrointestinal (Abdomen): left sided tenderness on exam, no guarding, soft, normal bowel sounds. Skin: no rashes, warm and dry Psychiatric: Orientation: alert and oriented x 3 Results & Data Results & Data Vital Signs (Past 12 Hours) Vital Signs Temp Pulse Pulse Resp BP BP Pulse Ox 06/11/23 07:39 98.2 F 91 H 18 130/77 95 06/11/23 07:08 94 H 06/11/23 04:07 98.1 F 97 H 18 109/65 97 O2 Del Method 06/11/23 07:39 Room Air 06/11/23 07:08 06/11/23 04:07 Room Air PG Care Time/CCT Total # of Minutes Spent Total Time Spent with Patient: Total time spent is greater than 50% in coordination of care (as documented) at patient's floor/unit and/or counseling patient: Coding Level of Care Code 53028 SUB INP/OBS CARE 2/35MIN Diagnoses Pancolitis K51.00 Time Spent (min) 40
[2023-06-11] MEDS: PANTOprazole 40 MG in SYRINGE 0 ML IV SCH (11:31)
--- NOTE | 2023-06-11 18:35 | Hospitalist Progress Note ---
Date of Service June 11, 2023 Assessment & Plan (1) Pancolitis: Plan: Pancolitis, diarrhea, hematochezia - CT-A/P: Findings consistent with a pancolitis, moderate in severity. Case reviewed by GI Dr. Pruitt. Recommend deferring antibiotics until stool testing is resulted, GI consultation. No history of recent antibiotic use. No prior history of C. difficile. - stool biofire, Covid and C Diff NEGATIVE Blast cell noted on cell differential, was reviewed by Dr. Suarez. Recommended peripheral smear, while some plasma cells/blast cells are noted these are likely reflective of underlying inflammation. clear liquid diet npo after mn, LR 100 cc/h Present records reviewed, HIV negative. History of iron deficiency with low ferritin and transferrin saturation. Hemoglobin is 13.2 and borderline microcytic at 86. Once active infection is treated can start on iron therapy Hematochezia likely from pancolitis, do not suspect upper GI bleed. prep for colonoscopy was not taken, colonoscopy postphoned until next week (2) Elevated troponin: Plan: Elevated troponin 21.6, repeat normalized at 10.9 EKG: Sinus without territorial ischemic changes No chest pain per patient Endorses tobacco use, denies history of hypertension/[place]/CAD. Suspected demand ischemia Plan DVT prophylaxis: SCDs, heparin contraindicated in the setting of hematochezia CODE STATUS: Full code Admission and Anticipated Discharge Date Admission Date: June 09, 2023 Subjective Patient's colonoscopy was postponed for an additional 2 days because the patient did not drink his GoLytely prep. Patient told me that he was still having bloody bowel movements and did not feel he needed to drink his colostomy prep. I reeducated the patient once again as I did the day before that he needs to drink his colostomy prep so they would be able to see within his bowel however he did not do this and will now stay till June 14 and hopefully have colonoscopy that Physical Exam Physical Exam: pt is with abdominal pain, mostly LLQ pain Results & Data Results & Data Vital Signs (Past 12 Hours) Vital Signs Temp Pulse Pulse Resp BP Pulse Ox O2 Del Method 06/11/23 15:19 96 H 06/11/23 15:08 98.8 F 89 18 144/74 H 94 Room Air 06/11/23 11:39 98.4 F 85 18 150/81 H 94 Room Air 06/11/23 07:39 98.2 F 91 H 18 130/77 95 Room Air 06/11/23 07:08 94 H Laboratory Results Normal CBC normal chemistry PG Care Time/CCT Total # of Minutes Spent Total Time Spent with Patient: Total time spent is greater than 50% in coordination of care (as documented) at patient's floor/unit and/or counseling patient: Coding Level of Care Code 56002 SUB INP/OBS CARE 2/35MIN Diagnoses Pancolitis K51.00 Elevated troponin R77.8
[2023-06-11] MEDS: ACETAMINOPHEN 1,000 MG/100 ML VIAL IV PRN (19:18)
--- NOTE | 2023-06-11 21:08 | Electrocardiogram Report ---
Test Reason : Blood Pressure : / mmHG Vent. Rate : 087 BPM Atrial Rate : 087 BPM P-R Int : 120 ms QRS Dur : 108 ms QT Int : 368 ms P-R-T Axes : 000 014 064 degrees QTc Int : 443 ms Normal sinus rhythm Nonspecific ST abnormality Abnormal ECG No previous ECGs available Confirmed by Vasiliy Ramirez ([id number]) on 06/11/2023 9:08:22 PM Referred By: Confirmed By:Vasiliy Ramirez
[2023-06-11] MEDS: methylPREDNISolone 40 MG in SYRINGE 0 ML IV SCH (21:09)
[2023-06-12] MEDS: LACTATED RINGER'S 1,000 ML IV SCH ×3 (01:56→16:23)
[2023-06-12] MEDS: ONDANSETRON INJ 2 MG/ML 2 ML VIAL IV PRN ×3 (05:37→21:40)
[2023-06-12] MEDS: ACETAMINOPHEN 1,000 MG/100 ML VIAL IV PRN ×2 (05:38→13:58)
[2023-06-12 05:48] LABS: Hematocrit (blood only) 31.3 % (42.0-52.0); Hemoglobin 10.8 g/dl (14.0-18.0); Mean Corpuscular Hgb Conc 34.5 g/dL (32.0-36.0); Mean Corpuscular Volume 86.9 fL (80.0-100.0); Mean Platelet Volume 9.3 fL (9.4-12.4); Platelet Count 504 K/uL (130-400); RDW Coefficient of Variation 12.4 % (11.5-14.5); RDW Standard Deviation 39.6 fL (36.4-46.3); White Blood Count 13.65 K/ul (4.8-10.8)
[2023-06-12 05:59] LABS: BUN Creatinine Ratio 18.6 (10-20); Calcium 7.7 mg/dl (8.6-10.3); Creatinine Clr Calc Pharmacy 119.8 ml/min; Est GFR (Non-African American) 114.8 ml/min; Potassium 3.8 mmol/L (3.5-5.1)
[2023-06-12 06:28] LABS: Basophils # (auto) 0.01 K/uL (0.00-0.20); Basophils % (auto) 0.1 %; Echinocytes 1+; Immature Granulocytes # (auto) 0.24 K/uL (0.01-0.20); Immature Granulocytes % (auto) 1.8 %; Lymphocytes # (auto) 0.49 K/uL (1.20-3.40); Lymphocytes % (auto) 3.6 %; Monocytes # (auto) 0.58 K/uL (0.11-0.59); Monocytes % (auto) 4.2 %; Neutrophils # (auto) 12.33 K/uL (1.40-6.50); Neutrophils % (auto) 90.3 %
[2023-06-12] MEDS: PANTOprazole 40 MG in SYRINGE 0 ML IV SCH (10:09)
[2023-06-12] MEDS: methylPREDNISolone 40 MG in SYRINGE 0 ML IV SCH ×2 (10:09→20:01)
[2023-06-12] MEDS: SENNA 8.6 MG TAB PO SCH (10:09)
[2023-06-12] MEDS ORDERED: oxyCODONE HCL IR 5 MG TAB (IMMEDIATE RELEASE) PO PRN (14:12)
--- NOTE | 2023-06-12 14:16 | Hospitalist Progress Note ---
Date of Service June 12, 2023 Assessment & Plan (1) Pancolitis: Plan: Pancolitis, diarrhea, hematochezia - CT-A/P: Findings consistent with a pancolitis, moderate in severity. Case reviewed by GI Dr. Pruitt. Recommend deferring antibiotics until stool testing is resulted, GI consultation. No history of recent antibiotic use. No prior history of C. difficile. - stool biofire, Covid and C Diff NEGATIVE Blast cell noted on cell differential, was reviewed by Dr. Suarez. Recommended peripheral smear, while some plasma cells/blast cells are noted these are likely reflective of underlying inflammation. patient remain on a liquid diet over the weekend for preparation of colonoscopy on June 14. Remains on intravenous fluids Present records reviewed, HIV negative. History of iron deficiency with low ferritin and transferrin saturation. Hemoglobin is 13.2 and borderline microcytic at 86. Once active infection is treated can start on iron therapy Hematochezia likely from pancolitis, do not suspect upper GI bleed. prep for colonoscopy was not taken, colonoscopy postphoned until next week if abdominal pain persists and is significant may consider reimaging with CT scan to be sure there is no transmural or intramural issues (2) Elevated troponin: Plan: Elevated troponin 21.6, repeat normalized at 10.9 EKG: Sinus without territorial ischemic changes No chest pain per patient Endorses tobacco use, denies history of hypertension/[place]/CAD. Suspected demand ischemia patient has been stable and transferred off telemetry all medications and orders reviewed 06/12/2020 Plan DVT prophylaxis: SCDs, heparin contraindicated in the setting of hematochezia CODE STATUS: Full code Admission and Anticipated Discharge Date Admission Date: June 09, 2023 Subjective patient biggest concern is his complaints of abdominal pain. It is difficult to tell if he is having abdominal pain or secondary gain but he request pain medications when he takes his GoLytely preparation Physical Exam Physical Exam: pt is with abdominal pain, mostly LLQ pain this is without rebound or guarding Results & Data Results & Data Vital Signs (Past 12 Hours) Vital Signs Temp Pulse Pulse Resp BP BP Pulse Ox 06/12/23 11:12 98.4 F 76 14 131/79 95 06/12/23 08:17 98.1 F 76 18 145/78 H 95 06/12/23 07:20 87 06/12/23 04:56 97.9 F 77 18 137/76 94 O2 Del Method 06/12/23 11:12 Room Air 06/12/23 08:17 Room Air 06/12/23 07:20 06/12/23 04:56 Room Air Laboratory Results reviewed CBC reviewed chemistry transfer to telemetry all medications and orders reviewed PG Care Time/CCT Total # of Minutes Spent Total Time Spent with Patient: Total time spent is greater than 50% in coordination of care (as documented) at patient's floor/unit and/or counseling patient: Coding Level of Care Code 56553 SUB INP/OBS CARE 3/50MIN Diagnoses Pancolitis K51.00 Elevated troponin R77.8
[2023-06-12] MEDS: MoRPHine SULFATE 4 MG/ML 1 ML CARP\\VIAL IV PRN (16:22)
[2023-06-12] MEDS: chlorproMAZINE HCL 25 MG/ML AMP IM PRN (18:52)
[2023-06-13] MEDS: LACTATED RINGER'S 1,000 ML IV SCH ×3 (00:25→18:43)
[2023-06-13] MEDS: MoRPHine SULFATE 4 MG/ML 1 ML CARP\\VIAL IV PRN ×3 (00:28→20:38)
[2023-06-13 08:24] LABS: Hematocrit (blood only) 30.7 % (42.0-52.0); Hemoglobin 10.3 g/dl (14.0-18.0); Mean Corpuscular Hgb Conc 33.6 g/dL (32.0-36.0); Mean Corpuscular Volume 89.5 fL (80.0-100.0); Mean Platelet Volume 9.4 fL (9.4-12.4); Platelet Count 534 K/uL (130-400); RDW Coefficient of Variation 12.7 % (11.5-14.5); RDW Standard Deviation 41.5 fL (36.4-46.3); Red Blood Count 3.43 M/uL (4.70-6.10); White Blood Count 16.22 K/ul (4.8-10.8)
[2023-06-13] MEDS: ONDANSETRON INJ 2 MG/ML 2 ML VIAL IV PRN ×2 (08:38→17:13)
[2023-06-13] MEDS: methylPREDNISolone 40 MG in SYRINGE 0 ML IV SCH ×2 (08:38→20:31)
[2023-06-13 08:45] LABS: BUN Creatinine Ratio 21.1 (10-20); Calcium 7.4 mg/dl (8.6-10.3); Creatinine Clr Calc Pharmacy 124.1 ml/min; Est GFR (African American) 134.9 ml/min; Est GFR (Non-African American) 116.4 ml/min; Magnesium 1.8 mg/dl (1.7-2.4); Potassium 3.7 mmol/L (3.5-5.1)
[2023-06-13] MEDS: SENNA 8.6 MG TAB PO SCH (10:06)
[2023-06-13] MEDS: oxyCODONE HCL IR 5 MG TAB (IMMEDIATE RELEASE) PO PRN ×2 (10:56→18:40)
[2023-06-13] MEDS: PANTOprazole 40 MG in SYRINGE 0 ML IV SCH (10:56)
--- NOTE | 2023-06-13 13:40 | Gastroenterology Progress Note ---
Date of Service June 13, 2023 Assessment & Plan (1) Pancolitis: Plan: Discussed case with Dr. Keller Will await repeat CT scan with PO contrast Continue Solu-medrol 40 mg IV BID Proceed with colonoscopy tomorrow if patient can take prep tonight. Will switch to Miralax prep tonight to see if he tolerates this better. Admission and Anticipated Discharge Date Admission Date: June 09, 2023 Subjective He complains of continued abdominal pain. He denies any further blood per rectum. States he had a liquid BM earlier today but no blood. He states pain is worsened when he tries to drink Golytely bowel prep. He denies any fevers, chills, nausea, vomiting. He notes that his pain is slightly better than previous. Review of Systems Review of Systems: All systems reviewed & are unremarkable except as noted in HPI & below Physical Exam Constitutional: WD/WN, vitals as above Respiratory: normal respiratory effort, lungs clear to auscultation Cardiovascular: RRR, no murmur, no edema Gastrointestinal (Abdomen): normal bowel sounds, soft, nontender, no hepatosplenomegaly Skin: no rashes, warm and dry Psychiatric: A+Ox3, euthymic affect Results & Data Results & Data Vital Signs (Past 12 Hours) Vital Signs Temp Pulse Resp BP Pulse Ox O2 Del Method 06/13/23 08:20 36.9 C 93 H 17 150/77 H 92 Room Air PG Care Time/CCT Total # of Minutes Spent Total Time Spent with Patient: Total time spent is greater than 50% in coordination of care (as documented) at patient's floor/unit and/or counseling patient: Coding Level of Care Code 76329 SUB INP/OBS CARE 3/50MIN Diagnoses Pancolitis K51.00
[2023-06-13] MEDS: MoRPHine SULFATE 2 MG/ML CARP IV PRN (14:38)
--- NOTE | 2023-06-13 15:15 | Hospitalist Progress Note ---
Date of Service June 13, 2023 Assessment & Plan (1) Pancolitis: Plan: Pancolitis, diarrhea, hematochezia - CT-A/P: Findings consistent with a pancolitis, moderate in severity. Case reviewed by GI Dr. Pruitt. Recommend deferring antibiotics until stool testing is resulted, GI consultation plans on colonoscopy on 06/14/2023 if patient takes prep appropriately patient with worsening left lower quadrant abdominal pain CT scan abdomen pelvis with oral contrast ordered 06/13/2023 results are pending at the time of this dictation . No history of recent antibiotic use. No prior history of C. difficile. - stool biofire, Covid and C Diff NEGATIVE Blast cell noted on cell differential, was reviewed by Dr. Suarez. Recommended peripheral smear, while some plasma cells/blast cells are noted these are likely reflective of underlying inflammation. Present records reviewed, HIV negative. History of iron deficiency with low ferritin and transferrin saturation. Hemoglobin is 13.2 and borderline microcytic at 86. Once active infection is treated can start on iron therapy (2) Elevated troponin: Plan: Elevated troponin 21.6, repeat normalized at 10.9 EKG: Sinus without territorial ischemic changes No chest pain per patient Endorses tobacco use, denies history of hypertension/[place]/CAD. Suspected demand ischemia patient has been stable and transferred off telemetry all medications and orders reviewed 06/12/2020 Plan DVT prophylaxis: SCDs, heparin contraindicated in the setting of hematochezia CODE STATUS: Full code Admission and Anticipated Discharge Date Admission Date: June 09, 2023 Subjective He complains of continued abdominal pain. He denies any further blood per rectum. He states pain is worsened when he tries to drink Golytely bowel prep and has a bowel movement pain in LLQ but some with rebound testing (not an acute abdomen) . Physical Exam Physical Exam: pt is with abdominal pain, mostly LLQ pain this is without guarding Results & Data Results & Data Vital Signs (Past 12 Hours) Vital Signs Temp Pulse Resp BP Pulse Ox O2 Del Method 06/13/23 08:20 98.4 F 93 H 17 150/77 H 92 Room Air Laboratory Results reviewed CBC reviewed chemistry PG Care Time/CCT Total # of Minutes Spent Total Time Spent with Patient: Total time spent is greater than 50% in coordination of care (as documented) at patient's floor/unit and/or counseling patient: Coding Level of Care Code 18922 SUB INP/OBS CARE MIN Diagnoses Pancolitis K51.00 Elevated troponin R77.8
[2023-06-13] MEDS: POLYETHYLENE (MIRALAX) 17 GM PACK PO SCH (18:11)
[2023-06-13] MEDS ORDERED: PROCHLORPERAZINE 10 MG in SYRINGE 8 ML IV ONE (21:00)
[2023-06-14] MEDS: POLYETHYLENE (MIRALAX) 17 GM PACK PO SCH ×2 (00:43→18:39)
[2023-06-14] MEDS: oxyCODONE HCL IR 5 MG TAB (IMMEDIATE RELEASE) PO PRN ×2 (02:26→22:03)
[2023-06-14] MEDS: LACTATED RINGER'S 1,000 ML IV SCH ×3 (02:27→21:40)
[2023-06-14] MEDS: MoRPHine SULFATE 4 MG/ML 1 ML CARP\\VIAL IV PRN ×2 (03:34→18:22)
[2023-06-14] MEDS: chlorproMAZINE HCL 25 MG/ML AMP IM PRN (03:39)
[2023-06-14 07:26] LABS: Hematocrit (blood only) 29.2 % (42.0-52.0); Hemoglobin 9.6 g/dl (14.0-18.0); Mean Corpuscular Hemoglobin 29.9 pg (25.0-34.0); Mean Corpuscular Hgb Conc 32.9 g/dL (32.0-36.0); Mean Platelet Volume 9.3 fL (9.4-12.4); Platelet Count 521 K/uL (130-400); RDW Coefficient of Variation 12.8 % (11.5-14.5); RDW Standard Deviation 42.7 fL (36.4-46.3); Red Blood Count 3.21 M/uL (4.70-6.10); White Blood Count 14.59 K/ul (4.8-10.8)
[2023-06-14 07:45] LABS: BUN Creatinine Ratio 15.5 (10-20); Calcium 7.6 mg/dl (8.6-10.3); Creatinine Clr Calc Pharmacy 121.9 ml/min; Est GFR (Non-African American) 115.6 ml/min; Magnesium 1.9 mg/dl (1.7-2.4); Potassium 4.1 mmol/L (3.5-5.1)
[2023-06-14] MEDS: SENNA 8.6 MG TAB PO SCH (09:38)
[2023-06-14] MEDS: methylPREDNISolone 40 MG in SYRINGE 0 ML IV SCH ×2 (09:39→20:23)
--- NOTE | 2023-06-14 09:54 | History & Physical Bridge Note ---
Date of Service June 14, 2023 History & Physical Bridge Note I have examined the patient, reviewed the History & Physical and in the interval since the performance of the History & Physical I have noted the following changes of clinical significance: no changes noted. Patient finished prep. He tells me he feels he is cleaned out. Nursing mentions there may have still been some flex stool but she did not see it. patient still with abdominal pain. He has been NPO. no chest pain or sob. - will plan for colonoscopy for today.
[2023-06-14] MEDS ORDERED: ATROPINE SULFATE 0.1 MG/ML 10ML SYR IV PRN (10:39)
[2023-06-14] MEDS ORDERED: ePHEDrine sulfate 50 MG/ML AMP IV PRN (10:39)
[2023-06-14] MEDS ORDERED: PROPOFOL IV EMULSION 10 MG/ML 20 ML VIAL IV ONE (11:16)
[2023-06-14] MEDS ORDERED: LIDOCAINE 2% 2 ML VIAL/AMP(20MG/ML) INFIL ONE (11:16)
--- NOTE | 2023-06-14 11:32 | GI REPORT ---
Patient Name: Adama Deleon Procedure Date: 06/14/2023 10:49 AM Date of : 1970 Admit Type: Inpatient Age: 53 Gender: Male Attending MD: Thiago Lindsey MD, Procedure: Colonoscopy Providers: Thiago Lindsey MD Referring MD: Tj Armstrong Indications: Clinically significant diarrhea of unexplained origin, Hematochezia, Abnormal CT of the GI tract Medicines: Monitored Anesthesia Care Complications: No immediate complications. Estimated blood loss: None. Estimated Blood Loss: Estimated blood loss: none. Procedure: Pre-Anesthesia Assessment: - Prior Anticoagulants: The patient has taken no anticoagulant or antiplatelet agents. - ASA Grade Assessment: III - A patient with severe systemic disease. After I obtained informed consent, the scope was passed under direct vision. Throughout the procedure, the patient's blood pressure, pulse, and oxygen saturations were monitored continuously. The procedure was aborted. The colonoscope was not inserted. Medications were given. The patient tolerated the procedure well. Findings: significant brown liquid stool was pouring out of the patient's anus, scope not inserted and procedure aborted. The perianal exam findings include significant brown stool pouring out of the anus. Impression: - Significant brown stool pouring out of the anus found on perianal exam. - No specimens collected. Recommendation: - Return patient to hospital cross for ongoing care. - Clear liquid diet today. NPO post midnight except prep. -give another gatorade-miralax prep today starting at 6 pm -will attempt colonoscopy tomorrow if more cleaned out Thiago Lindsey MD 06/14/2023 11:31:31 AM This report has been signed electronically. Note Initiated On: 06/14/2023 10:49 AM Number of Addenda: 0 I attest to the content of the Intraoperative Record and orders documented therein, exceptions below {[id number]}
--- NOTE | 2023-06-14 12:24 | Anesthesiology Progress Note ---
Date of Service June 14, 2023 Anesthesia Post Procedure Vital Signs Vital Signs: Temp Pulse Resp BP BP Pulse Ox O2 Del Method 06/14/23 12:04 71 18 133/78 93 Room Air 06/14/23 11:49 81 16 138/88 95 Room Air 06/14/23 11:34 89 16 124/80 91 Room Air 06/14/23 10:23 36.5 C 89 16 139/83 95 Room Air 06/14/23 07:56 36.5 C 107 H 18 110/71 90 Room Air 06/13/23 20:30 36.6 C 110 H 18 130/70 92 Room Air 06/13/23 15:13 36.8 C 93 H 16 139/76 94 Room Air Pain Intensity Bilateral Lower Abdomen: Pain Intensity: 10 Transfer of Care Handoff Completed per policy Notes Mental Status: alert / awake / arousable Patient Amnestic to Procedure: Yes Nausea / Vomiting: adequately controlled Pain: adequately controlled Airway Patency, RR, SpO2: stable & adequate BP & HR: stable & adequate Hydration State: stable & adequate Anesthetic Complications: no major complications apparent
[2023-06-14] MEDS: PANTOprazole 40 MG in SYRINGE 0 ML IV SCH (13:24)
[2023-06-14] MEDS ORDERED: POLYETHYLENE (MIRALAX) 17 GM PACK PO SCH (14:00)
--- NOTE | 2023-06-14 18:15 | Hospitalist Progress Note ---
Date of Service June 14, 2023 Assessment & Plan (1) Pancolitis: Plan: Pancolitis, diarrhea, hematochezia Once again poor prep on 06/14 1 once again reviewed encouraged the patient to take his colonoscopy prep. - CT-A/P: Findings consistent with a pancolitis, moderate in severity. Case reviewed by GI Dr. Pruitt. Recommend deferring antibiotics until stool testing is resulted, GI consultation plans on colonoscopy on 06/14/2023 if patient takes prep appropriately patient with worsening left lower quadrant abdominal pain CT scan abdomen pelvis with oral contrast ordered 06/13/2023 did not show any new evidence of change with exception of the pancolitis as previously found . No history of recent antibiotic use. No prior history of C. difficile. - stool biofire, Covid and C Diff NEGATIVE Blast cell noted on cell differential, was reviewed by Dr. Suarez. Recommended peripheral smear, while some plasma cells/blast cells are noted these are likely reflective of underlying inflammation. Present records reviewed, HIV negative. History of iron deficiency with low ferritin and transferrin saturation. Hemoglobin is 13.2 and borderline microcytic at 86. Once active infection is treated can start on iron therapy (2) Elevated troponin: Plan: Elevated troponin 21.6, repeat normalized at 10.9 EKG: Sinus without territorial ischemic changes No chest pain per patient Endorses tobacco use, denies history of hypertension/OR/CAD. Suspected demand ischemia patient has been stable and transferred off telemetry all medications and orders reviewed 06/12/2020 Plan DVT prophylaxis: SCDs, heparin contraindicated in the setting of hematochezia CODE STATUS: Full code Admission and Anticipated Discharge Date Admission Date: June 09, 2023 Subjective He complains of continued abdominal pain. He denies any further blood per rectum. He states pain is worsened when he tries to drink Golytely bowel prep Patient was again taken for colonoscopy in 06/14 with brown stool. Patient will attempt to have colonoscopy prep on the evening of 06 14- 3 for repeat study Physical Exam Physical Exam: pt is with abdominal pain, mostly LLQ pain this is without guarding Results & Data Results & Data Vital Signs (Past 12 Hours) Vital Signs Temp Pulse Resp BP BP Pulse Ox O2 Del Method 06/14/23 15:26 98.2 F 72 18 134/72 93 Room Air 06/14/23 12:04 71 18 133/78 93 Room Air 06/14/23 11:49 81 16 138/88 95 Room Air 06/14/23 11:34 89 16 124/80 91 Room Air 06/14/23 10:23 97.7 F 89 16 139/83 95 Room Air 06/14/23 07:56 97.7 F 107 H 18 110/71 90 Room Air Laboratory Results Reviewed CBC reviewed chemistry PG Care Time/CCT Total # of Minutes Spent Total Time Spent with Patient: Total time spent is greater than 50% in coordination of care (as documented) at patient's floor/unit and/or counseling patient: Coding Level of Care Code 18472 SUB INP/OBS CARE 10/07MIN Diagnoses Pancolitis K51.00 Elevated troponin R77.8
[2023-06-15] MEDS: POLYETHYLENE (MIRALAX) 17 GM PACK PO SCH (01:09)
[2023-06-15] MEDS: MoRPHine SULFATE 4 MG/ML 1 ML CARP\\VIAL IV PRN ×2 (03:42→20:23)
[2023-06-15] MEDS: LACTATED RINGER'S 1,000 ML IV SCH ×3 (05:21→23:14)
[2023-06-15] MEDS ORDERED: INFLUENZA VIRUS QUADRIVALENT VACCINE (IIV4) 0.5 ML SYR IM ONE (09:02)
--- NOTE | 2023-06-15 09:15 | History & Physical Bridge Note ---
Date of Service June 15, 2023 History & Physical Bridge Note I have examined the patient, reviewed the History & Physical and in the interval since the performance of the History & Physical I have noted the following changes of clinical significance: no changes noted. patient completed another course of prep yesterday and stools are a light pink per nursing. will proceed with colonoscopy this morning.
[2023-06-15] MEDS: methylPREDNISolone 40 MG in SYRINGE 0 ML IV SCH ×2 (09:23→20:17)
[2023-06-15] MEDS: SENNA 8.6 MG TAB PO SCH (09:23)
[2023-06-15] MEDS: PANTOprazole 40 MG in SYRINGE 0 ML IV SCH (12:07)
--- NOTE | 2023-06-15 15:12 | Anesthesiology Consultation ---
Date of Service June 15, 2023 Assessment & Plan Chart Review Chart Review: Acceptable Risk for Surgery and Patient NOT seen in Pre Admission Testing Consults Requested none ASA ASA3 Proposed Anesthesia Anesthesia Type: MAC Risk / Benefits Reviewed With: PT / POA / Parent / Guardian, Accepts Plan and Informed Consent Obtained History Surgery Operation Date: 06/14/23 17:25 Proposed Procedures p Colonoscopy Dr. Rosalia Lindsey MD Operation Date: 06/15/23 16:30 Proposed Procedures p Colonoscopy Dr. Rosalia Lindsey MD Height/Weight Height: 5 ft 4 in Weight: 60.781 kg Allergies Allergy/AdvReac Type Severity Reaction Status Date / Time No Known Allergies Allergy Verified 06/14/23 10:21 Medications Home Medications Medication Instructions Recorded Confirmed Last Taken bisacodyl 5 mg tablet 20 mg PO DAILY 06/09/23 06/09/23 Unknown loperamide 2 mg tablet 2 mg PO UD PRN Diarrhea 06/09/23 06/09/23 Unknown metoclopramide HCl 5 mg tablet 5 mg PO TID PRN as directed 06/09/23 06/09/23 Unknown Active Medications Generic Name Dose Route Start Last Admin Trade Name Freq PRN Reason Stop Dose Admin Chlorpromazine HCl 25 mg 06/12/23 17:20 06/14/23 03:39 Chlorpromazine Hcl 25 Mg/Ml Amp IM 07/12/23 17:19 25 mg ONE PRN Administration hiccups Pantoprazole Sodium 40 mg/ 10 mls @ 5 mls/min 06/10/23 11:00 06/15/23 12:07 Syringe IV 07/10/23 10:59 5 mls/min DAILY@1100 HERNESTO Administration Lactated Ringer's 1,000 mls @ 125 mls/hr 06/09/23 23:04 06/15/23 13:38 Lr IV 07/09/23 23:03 125 mls/hr .Q8H HERNESTO Administration Methylprednisolone 40 mg/ 0.64 mls @ 1.5 mls/min 06/11/23 21:00 06/15/23 09:23 Syringe IV 07/11/23 20:59 1.5 mls/min Q12H HERNESTO Administration Morphine Sulfate 4 mg 06/12/23 14:12 06/15/23 03:42 Morphine Sulfate 4 Mg/Ml 1 Ml Carp\Vial IV 10/14/23 14:11 4 mg Q4 PRN Administration Severe Pain (Scale 7, 8, 9,10) Morphine Sulfate 2 mg 06/12/23 14:46 06/13/23 14:38 Morphine Sulfate 2 Mg/Ml Carp IV 06/23/23 23:03 2 mg Q4H PRN Administration Moderate Pain (Scale 4, 5, 6) Ondansetron HCl 4 mg 06/09/23 23:04 06/13/23 17:13 Ondansetron Inj 2 Mg/Ml 2 Ml Vial IV 07/09/23 23:03 4 mg Q6H PRN Administration Nausea Oxycodone HCl 10 mg 06/12/23 14:46 06/14/23 22:03 Oxycodone Hcl Ir 5 Mg Tab (Immediate Release) PO 06/26/23 14:11 10 mg Q6H PRN Administration mild to moderate pain Sennosides 17.2 mg 06/12/23 09:00 06/15/23 09:23 Senna 8.6 Mg Tab PO 07/12/23 08:59 Not Given QAM HERNESTO NPO Date Last Intake of Fluids: 06/15/23 Time Last Intake of Fluids: 01:00 Last Intake of Fluids Comment: colonoscopy prep Date Last Intake of Solids: 06/12/23 Time Last Intake of Solids: 12:00 Last Intake of Solids Comment: unknown, full liquids ordered prior to NPO Past Medical History Medical History (Updated 06/11/23 @ 08:56 by Prince Hollis MD) Encounter for pre-operative examination Past Anesthesia History No Hx of Anesthesia Complications and No Family Hx of Anesthesia Complications History of PONV No Hx of PONV and No Hx of Motion Sickness Social History Smoking Status: Current every day smoker Hx Alcohol Use: No Hx Substance Use: No Review of Systems ROS Unobtainable: All systems reviewed & are unremarkable except as noted in HPI & below Physical Exam Vital Signs Last Vital Signs Temp 36.7 C 06/15/23 14:56 Pulse 68 06/15/23 14:56 Resp 16 06/15/23 14:56 BP 146/81 H 06/15/23 14:56 Pulse Ox 94 06/15/23 14:56 O2 Del Method Room Air 06/15/23 14:56 Constitutional no acute distress ENMT Mouth: no TMJ abnormality Thyromental Distance: > or= 3.5 Finger Breadths Mallampati Class: II Neck normal visual inspection and trachea midline; neck extension not limited Respiratory normal respiratory effort Auscultation: lungs clear to auscultation bilaterally Cardiovascular Rate/Rhythm: regular rate and regular rhythm Heart Sounds: no murmur Musculoskeletal Spine: normal cervical ROM Extremities: full ROM of extremities Neurologic moves all extremities Psychiatric Orientation: alert and oriented x 3 Testing Laboratory Results 06/14/23 06:51 06/14/23 06:51 PT 12.4 Seconds (9.0-12.0) H 06/09/23 11:15 INR 1.1 (0.9-1.1) 06/09/23 11:15 APTT 27.7 Seconds (21.0-31.0) 06/09/23 11:15 Urine Color Dark Yellow 06/09/23 20:54 Urine Appearance Clear (Clear) 06/09/23 20:54 Urine pH 6.5 (4.5-7.5) 06/09/23 20:54 Ur Specific [place] > 1.045 (1.000-1.030) H 06/09/23 20:54 Urine Protein 1+ (Negative) H 06/09/23 20:54 Urine Glucose (UA) Negative (Negative) 06/09/23 20:54 Urine Ketones Trace (Negative) H 06/09/23 20:54 Urine Nitrite Negative (Negative) 06/09/23 20:54 Ur Leukocyte Esterase Negative (Negative) 06/09/23 20:54 Urine WBC (Auto) 5-10 /hpf (0-5) H 06/09/23 20:54 Urine RBC (Auto) 5-10 /hpf (0-4) H 06/09/23 20:54 U Hyaline Cast (Auto) 0 /lpf (0-5) 06/09/23 20:54 U Epithel Cells (Auto) >30 /lpf (0-5) H 06/09/23 20:54 Urine Bacteria (Auto) Negative (Negative) 06/09/23 20:54 Blood Type A Negative 06/09/23 11:40 Antibody Screen NEGATIVE 06/09/23 11:40 Electrocardiogram Date: 06/09/23 Normal sinus rhythm Nonspecific ST abnormality Abnormal ECG No previous ECGs available Confirmed by Vasiliy Ramirez ([id number]) on 06/11/2023 9:08:22 PM
[2023-06-15] MEDS ORDERED: PROPOFOL IV EMULSION 10 MG/ML 20 ML VIAL IV ONE (15:43)
--- NOTE | 2023-06-15 16:05 | GI REPORT ---
Patient Name: Adama Deleon Procedure Date: 06/15/2023 3:37 PM Date of : 1970 Admit Type: Inpatient Age: 53 Gender: Male Attending MD: Thiago Lindsey MD, Procedure: Colonoscopy Providers: Thiago Lindsey MD Referring MD: Sincere LANGSTON Indications: Clinically significant diarrhea of unexplained origin, Hematochezia, Abnormal CT of the GI tract Medicines: Monitored Anesthesia Care Complications: No immediate complications. Estimated blood loss: None. Estimated Blood Loss: Estimated blood loss: none. Procedure: Pre-Anesthesia Assessment: - Prior Anticoagulants: The patient has taken no anticoagulant or antiplatelet agents. - ASA Grade Assessment: III - A patient with severe systemic disease. After I obtained informed consent, the scope was passed under direct vision. Throughout the procedure, the patient's blood pressure, pulse, and oxygen saturations were monitored continuously. The Colonoscope was introduced through the anus and advanced to the cecum, identified by appendiceal orifice and ileocecal valve. The colonoscopy was performed without difficulty. The patient tolerated the procedure well. The quality of the bowel preparation was fair. Findings: Diffuse severe inflammation characterized by altered vascularity, congestion (edema), erythema, friability, mucus, pseudopolyps and deep ulcerations was found in the entire colon. Biopsies were taken with a cold forceps for histology from the right and left colon and the rectum. Estimated blood loss: none. A large polypoid lesion was found in the cecum. The lesion was sessile. No bleeding was present. Biopsies were taken with a cold forceps for histology. Estimated blood loss: none. Impression: - Preparation of the colon was fair. - Diffuse severe inflammation was found in the entire examined colon secondary to pancolitis. Biopsied. - Polypoid lesion in the cecum. Biopsied. Recommendation: - Return patient to hospital cross for ongoing care. - Low fiber diet today. - Await pathology results. Thiago Lindsey MD 06/15/2023 4:05:30 PM This report has been signed electronically. Note Initiated On: 06/15/2023 3:37 PM Number of Addenda: 0 I attest to the content of the Intraoperative Record and orders documented therein, exceptions below {[id number]}
[2023-06-15] MEDS: oxyCODONE HCL IR 5 MG TAB (IMMEDIATE RELEASE) PO PRN (16:57)
--- NOTE | 2023-06-15 17:06 | Hospitalist Progress Note ---
Date of Service June 15, 2023 Assessment & Plan (1) Pancolitis: Plan: Pancolitis, diarrhea, hematochezia Patient was started on steroid therapy by GI medicine on 06/11/2023 Colonoscopy shows significant ulcerations throughout the entire colon and a sessile mass in the cecum all areas were biopsied. Patient allowed to have diet - CT-A/P: Findings consistent with a pancolitis, moderate in severity. Case reviewed by GI Dr. Pruitt. Recommend deferring antibiotics until stool testing is resulted, GI consultation plans on colonoscopy on 06/14/2023 if patient takes prep appropriately patient with worsening left lower quadrant abdominal pain CT scan abdomen pe lvis with oral contrast ordered 06/13/2023 did not show any new evidence of change with exception of the pancolitis as previously found . No history of recent antibiotic use. No prior history of C. difficile. - stool biofire, Covid and C Diff NEGATIVE Blast cell noted on cell differential, was reviewed by Dr. Suarez. Recommended peripheral smear, while some plasma cells/blast cells are noted these are likely reflective of underlying inflammation. Present records reviewed, HIV negative. History of iron deficiency with low ferritin and transferrin saturation. Hemoglobin is 13.2 and borderline microcytic at 86. Once active infection is treated can start on iron therapy (2) Elevated troponin: Plan: Elevated troponin 21.6, repeat normalized at 10.9 EKG: Sinus without territorial ischemic changes No chest pain per patient Endorses tobacco use, denies history of hypertension/DC/CAD. Suspected demand ischemia patient has been stable and transferred off telemetry all medications and orders reviewed 06/12/2020 Plan DVT prophylaxis: SCDs, Now that procedure performed and hematochezia has reduced we will institute heparin therapy CODE STATUS: Full code Admission and Anticipated Discharge Date Admission Date: June 09, 2023 Subjective Underwent colonoscopy on 06/15 with diffuse ulcerations of his colon and a sessile cecal mass he denies any further blood per rectum. Physical Exam Physical Exam: pt is with abdominal pain, mostly LLQ pain this is without guarding Results & Data Results & Data Vital Signs (Past 12 Hours) Vital Signs Temp Pulse Resp BP BP Pulse Ox O2 Del Method 06/15/23 16:59 74 16 165/83 H 66 L Room Air 06/15/23 16:32 70 16 164/91 H 95 Room Air 06/15/23 16:17 85 16 146/93 H 95 Room Air 06/15/23 16:02 76 16 148/84 H 96 Room Air 06/15/23 14:56 98.1 F 68 16 146/81 H 94 Room Air 06/15/23 07:46 98.2 F 74 18 160/91 H 93 Room Air Laboratory Results Reviewed CBC reviewed chemistry PG Care Time/CCT Total # of Minutes Spent Total Time Spent with Patient: Total time spent is greater than 50% in coordination of care (as documented) at patient's floor/unit and/or counseling patient: Coding Level of Care Code 96453 SUB INP/OBS CARE 2/35MIN Diagnoses Pancolitis K51.00 Elevated troponin R77.8
--- NOTE | 2023-06-15 17:15 | Anesthesiology Progress Note ---
Date of Service June 15, 2023 Anesthesia Post Procedure Vital Signs Vital Signs: Temp Pulse Resp BP BP Pulse Ox O2 Del Method 06/15/23 17:09 37.2 C 06/15/23 16:59 74 16 165/83 H 66 L Room Air 06/15/23 16:32 70 16 164/91 H 95 Room Air 06/15/23 16:17 85 16 146/93 H 95 Room Air 06/15/23 16:02 76 16 148/84 H 96 Room Air 06/15/23 14:56 36.7 C 68 16 146/81 H 94 Room Air 06/15/23 07:46 36.8 C 74 18 160/91 H 93 Room Air 06/14/23 20:30 36.7 C 81 16 156/89 H 95 Room Air Pain Intensity Bilateral Lower Abdomen: Pain Intensity: 10 Transfer of Care Handoff Completed per policy Notes Mental Status: alert / awake / arousable Patient Amnestic to Procedure: Yes Nausea / Vomiting: adequately controlled Pain: adequately controlled Airway Patency, RR, SpO2: stable & adequate BP & HR: stable & adequate Hydration State: stable & adequate Anesthetic Complications: no major complications apparent and Pt Satisfied with anesthetic care
[2023-06-15] MEDS: HEPARIN SOD 5,000 UNIT/0.5 ML VIAL SQ SCH (20:17)
[2023-06-16] MEDS: LACTATED RINGER'S 1,000 ML IV SCH ×3 (06:47→20:48)
[2023-06-16] MEDS: HEPARIN SOD 5,000 UNIT/0.5 ML VIAL SQ SCH ×2 (07:50→20:43)
[2023-06-16] MEDS: SENNA 8.6 MG TAB PO SCH (07:50)
[2023-06-16] MEDS: methylPREDNISolone 40 MG in SYRINGE 0 ML IV SCH (07:51)
[2023-06-16] MEDS: oxyCODONE HCL IR 5 MG TAB (IMMEDIATE RELEASE) PO PRN ×2 (11:24→20:47)
[2023-06-16] MEDS: PANTOprazole 40 MG in SYRINGE 0 ML IV SCH (11:25)
[2023-06-16] MEDS: ONDANSETRON INJ 2 MG/ML 2 ML VIAL IV PRN ×2 (16:01→22:11)
--- NOTE | 2023-06-16 16:37 | Hospitalist Progress Note ---
Date of Service June 16, 2023 Assessment & Plan (1) Pancolitis: Plan: Pancolitis, diarrhea, hematochezia Patient was started on steroid therapy by GI medicine on 06/11/2023 days of discontinue awaiting results of pathology from colonoscopy Colonoscopy shows significant ulcerations throughout the entire colon and a sessile mass in the cecum all areas were biopsied. Patient allowed to have diet - CT-A/P: Findings consistent with a pancolitis, moderate in severity. Case reviewed by GI Dr. Pruitt. Recommend deferring antibiotics until stool testing is resulted, GI consultation plans on colonoscopy on 06/14/2023 if patient takes prep appropriately patient with worsening left lower quadrant abdominal pain CT scan abdomen pelvis with oral contrast ordered 06/13/2023 did not show any new evidence of change with exception of the pancolitis as previously found . No history of recent antibiotic use. No prior history of C. difficile. - stool biofire, Covid and C Diff NEGATIVE Blast cell noted on cell differential, was reviewed by Dr. Suarez. Recom mended peripheral smear, while some plasma cells/blast cells are noted these are likely reflective of underlying inflammation. Present records reviewed, HIV negative. History of iron deficiency with low ferritin and transferrin saturation. Hemoglobin is 13.2 and borderline microcytic at 86. Once active infection is treated can start on iron therapy (2) Elevated troponin: Plan: Elevated troponin 21.6, repeat normalized at 10.9 EKG: Sinus without territorial ischemic changes No chest pain per patient Endorses tobacco use, denies history of hypertension/NV/CAD. Suspected demand ischemia patient has been stable and transferred off telemetry all medications and orders reviewed 06/12/2020 Plan DVT prophylaxis: SCDs, hematochezia has reduced we will institute heparin therapy CODE STATUS: Full code Admission and Anticipated Discharge Date Admission Date: June 09, 2023 Subjective Underwent colonoscopy on 06/15 with diffuse ulcerations of his colon and a sessile cecal mass he denies any further blood per rectum. Patient with persistent mild nausea and abdominal discomfort. Gastroenterology has not decided on course of treatment given awaiting results to see if this could be viral colitis versus ulcerative colitis Patient is tolerating oral intake and pain and nausea control require parenteral medications at times Physical Exam Physical Exam: pt is with abdominal pain, mostly LLQ pain this is without guarding This is about the same as its been over the last few days Results & Data Results & Data Vital Signs (Past 12 Hours) Vital Signs Temp Pulse Resp BP BP Pulse Ox O2 Del Method 06/16/23 16:30 98.4 F 74 16 146/76 H 94 Room Air 06/16/23 07:46 98.4 F 73 16 156/73 H 95 Room Air PG Care Time/CCT Total # of Minutes Spent Total Time Spent with Patient: Total time spent is greater than 50% in coordination of care (as documented) at patient's floor/unit and/or counseling patient: Coding Level of Care Code 65182 SUB INP/OBS CARE 2/35MIN Diagnoses Pancolitis K51.00 Elevated troponin R77.8
[2023-06-17] MEDS ORDERED: BISMUTH SUBSALICYLATE SUSP PO ONE (01:17)
[2023-06-17] MEDS: LACTATED RINGER'S 1,000 ML IV SCH ×4 (04:49→21:54)
[2023-06-17] MEDS: SENNA 8.6 MG TAB PO SCH (08:30)
[2023-06-17] MEDS: HEPARIN SOD 5,000 UNIT/0.5 ML VIAL SQ SCH ×2 (08:30→21:55)
--- NOTE | 2023-06-17 09:16 | Gastroenterology Progress Note ---
Date of Service June 17, 2023 Assessment & Plan (1) Ulcerative colitis: Plan: I had reviewed the colonoscopy and pathology with the patient. Discussed the case with Dr. Lindsey who helped advise on plan. - would plan to discharge the patient on prednisone 40mg once daily with a 5mg a week taper. will start 40mg once daily for now while still inpatient. - also would recommend starting mesalamine 1600 mg TID and mesalamine 1 gm enema rectally qhs. - We are also recommending a referral to an IBD clinic for further recommendations on treatment as patient will likely need biologic therapy given the extent of his UC. I spoke with Edmundo Toure RN in our office and we are going to work on setting this up in the outpatient setting. Admission and Anticipated Discharge Date Admission Date: June 09, 2023 Supervising Physician Co-Signing Physician Notes I saw the patient and agree with the findings as documented by CAS Martel Subjective Patient's path returned today. He tells me he feels some bloating. He has a few bowel movements a day but tells me no further bleeding. otherwise, he feels better than previous. colonoscopy 06/15/23 fair prep, polypoid lesion in cecum, diffuse severe inflammation in entire colon secondary to pancolitis. pathology: Colon, cecal lesion, biopsy: - Inflammatory polyp Colon, right, biopsy: - Active chronic colitis with ulceration and architectural distortion - Negative for granulomas - Negative for dysplasia and malignancy Colon, left, biopsy: - Active chronic colitis with ulceration and architectural distortion - Negative for granulomas - Negative for dysplasia and malignancy Rectum, biopsy: - Active chronic proctitis with ulceration and architectural distortion - Negative for granulomas - Negative for dysplasia and malignancy Comment: The overall features are supportive of a diagnosis of ulcerative colitis in the appropriate clinical setting. CMV negative on cecal polyp, right colon biopsy, left colon biopsy, and rectal biopsy. Physical Exam Constitutional: WD/WN, vitals as above Respiratory: normal respiratory effort, lungs clear to auscultation Cardiovascular: RRR, no murmur, no edema Gastrointestinal (Abdomen): normal bowel sounds, soft, nontender, no hepatosplenomegaly Skin: no rashes, warm and dry Psychiatric: Orientation: alert and oriented x 3 Affect: euthymic affect Results & Data Results & Data Vital Signs (Past 12 Hours) Vital Signs Temp Pulse Resp BP Pulse Ox O2 Del Method 06/17/23 08:26 99.0 F 131 H 16 139/76 96 Room Air PG Care Time/CCT Total # of Minutes Spent Total Time Spent with Patient: Total time spent is greater than 50% in coordination of care (as documented) at patient's floor/unit and/or counseling patient: Coding Level of Care Code 09597 SUB INP/OBS CARE 2/35MIN Diagnoses Ulcerative colitis K51.90 Time Spent (min) 40
[2023-06-17] MEDS ORDERED: SIMETHICONE 40 MG/0.6 ML 30ML PO PRN (09:38)
[2023-06-17] MEDS: predniSONE 20 MG TAB PO SCH (10:57)
[2023-06-17] MEDS: PANTOprazole 40 MG in SYRINGE 0 ML IV SCH (10:58)
[2023-06-17] MEDS ORDERED: SODIUM CHLORIDE 0.9% 1,000 ML IV SCH (12:00)
[2023-06-17] MEDS: SIMETHICONE 80 MG CHEW PO PRN ×2 (13:44→23:06)
[2023-06-17] MEDS: MESALAMINE 800 MG TABCR PO SCH ×2 (13:44→21:54)
[2023-06-17] MEDS ORDERED: METOPROLOL TARTRATE 25 MG TAB PO ONE (14:45)
--- NOTE | 2023-06-17 15:10 | Electrocardiogram Report ---
Test Reason : Blood Pressure : / mmHG Vent. Rate : 100 BPM Atrial Rate : 100 BPM P-R Int : 096 ms QRS Dur : 092 ms QT Int : 328 ms P-R-T Axes : 061 019 031 degrees QTc Int : 423 ms Sinus rhythm Nonspecific ST abnormality Abnormal ECG When compared with ECG of 09-JUN-2023 11:05, QT has shortened Confirmed by Prince Nails ([id number]) on 06/17/2023 3:10:05 PM Referred By: [facility] Confirmed By:Franklyn Nails
--- NOTE | 2023-06-17 15:29 | Hospitalist Progress Note ---
Date of Service June 17, 2023 Assessment & Plan (1) Pancolitis: Plan: Pancolitis, diarrhea, hematochezia The overall features are supportive of a diagnosis of ulcerative colitis in the appropriate clinical setting. Colonoscopy shows significant ulcerations throughout the entire colon and a sessile mass in the cecum all areas were biopsied. Patient allowed to have diet GI medicine is recommended prednisone 40 mg a day with a 5 mg a week taper. mesalamine 1600 Milligrams 3 times daily and mesalamine 1 g enemas daily. GI medicine also try to coordinate a referral to inflammatory bowel clinic for biologic agent - CT-A/P: Findings consistent with a pancolitis, moderate in severity. Case reviewed by GI Dr. Pruitt. Recommend deferring antibiotics until stool testing is resulted, GI consultation plans on colonoscopy on 06/14/2023 if patient takes prep appropriately patient with worsening left lower quadrant abdominal pain CT scan abdomen pelvis with oral contrast ordered 06/13/2023 did not show any new evidence of change with exception of the pancolitis as previously found . No history of recent antibiotic use. No prior history of C. difficile. - stool biofire, Covid and C Diff NEGATIVE Blast cell noted on cell differential, was reviewed by Dr. Suarez. Recommended peripheral smear, while some plasma cells/blast cells are noted these are likely reflective of underlying inflammation. Present records reviewed, HIV negative. History of iron deficiency with low ferritin and transferrin saturation. Hemoglobin is 13.2 and borderline microcytic at 86. Once active infection is treated can start on iron therapy (2) Elevated troponin: Plan: Elevated troponin 21.6, repeat normalized at 10.9 EKG: Sinus without territorial ischemic changes No chest pain per patient patient has persistent tachycardia no ischemic changes on EKG. Concern for pulmonary embolism as the patient had chemoprophylaxis held for DVT due to hematochezia. CT angiography is pending instituting metoprolol therapy at this time Endorses tobacco use, denies history of hypertension/[place]/CAD. Suspected demand ischemia patient has been stable and transferred off telemetry all medications and orders reviewed 06/12/2020 Plan DVT prophylaxis: SCDs, hematochezia has reduced we did institute heparin therapy CODE STATUS: Full code Admission and Anticipated Discharge Date Admission Date: June 09, 2023 Subjective patient continues to have abdominal discomfort. Patient has some resting tachycardia which is confirmed to be sinus tachycardia by EKG. Patient is not volume deficient has been having significant volume infusions over the last few days. He likely does not have any perforation of his viscus as a KUB was looked at today for free air. Pain is not significant it is minor and no different in days past we are starting beta-devaughn therapy at this time Results & Data Results & Data Vital Signs (Past 12 Hours) Vital Signs Temp Pulse Resp BP Pulse Ox O2 Del Method 06/17/23 08:26 99.0 F 131 H 16 139/76 96 Room Air PG Care Time/CCT Total # of Minutes Spent Total Time Spent with Patient: Total time spent is greater than 50% in coordination of care (as documented) at patient's floor/unit and/or counseling patient: Coding Level of Care Code 52978 SUB INP/OBS CARE 3/50MIN Diagnoses Pancolitis K51.00 Elevated troponin R77.8
[2023-06-17] MEDS: oxyCODONE HCL IR 5 MG TAB (IMMEDIATE RELEASE) PO PRN (17:33)
[2023-06-17] MEDS ORDERED: OPTIRAY 320 125ml IV ONE (18:43)
[2023-06-17] MEDS: MoRPHine SULFATE 4 MG/ML 1 ML CARP\\VIAL IV PRN ×2 (19:22→23:00)
--- NOTE | 2023-06-17 19:52 | CT Scan Report ---
CT ANGIOGRAM OF THE CHEST CLINICAL HISTORY: Tachycardia. COMPARISON STUDY: No priors. TECHNIQUE: Following the IV administration of 150 cc of Optiray 320, CT angiogram of the chest was pe rformed from the upper abdomen to the thoracic inlet utilizing the pulmonary embolus protocol. Images are reviewed in the axial, sagittal, and coronal planes. 3-D MIPS images are created and assessed. I V contrast was administered without complication. A dose lowering technique was utilized adhering to the principles of ALARA. The examination is significantly compromised by motion artifact. CT DOSE: 498.96 mGy.cm FINDINGS: Thyroid: Imaged portions of the thyroid gland are normal in size and attenuation. Thoracic aorta: The thoracic aorta is normal in caliber and demonstrates bovine variant arch anatomy. No dissection is seen. Pulmonary vasculature: The pulmonary trunk is normal in caliber. There are no filling defects identif ied in main, lobar, or proximal segmental pulmonary branches to suggest pulmonary embolus. Evaluation of the segmental and subsegmental branches is significantly degraded by motion artifact. Heart: The heart is enlarged noting a small pericardial effusion. There are scattered coronary artery calcifications. Lungs and pleural spaces: Evaluation of the lung parenchyma is compromised by motion artifact. Emphys ematous changes observed. The trachea and central airways are clear. There are small left and trace r ight pleural effusions with dependent consolidation. Mediastinum: There is no mediastinal lymphadenopathy. Lydia: Clear. Axillae: There is no axillary lymphadenopathy. Upper abdomen: There is a small volume of upper abdominal ascites. Partially visualized upper abdomin al viscera is otherwise grossly unremarkable. Skeletal structures: No lytic or blastic bony lesions are seen. IMPRESSION: 1. Significant motion degraded examination. 2. There is no evidence of central pulmonary embolus in the main, lobar, or proximal segmental pulmon macey arteries. Evaluation of the segmental and subsegmental branches is significantly compromised by m otion artifact. 3. Cardiomegaly and emphysema. 4. Left larger than right pleural effusions with dependent consolidation. This likely represents atel ectasis and clinical correlation will be required. 5. A small volume of upper abdominal ascites. 6. Additional findings as above. ACT 112: Negative or not required by law. Electronically signed by: Hu Suarez M.D. 06/17/2023 7:50 PM
--- NOTE | 2023-06-17 21:46 | XRay Report ---
KUB CLINICAL HISTORY: Generalized abdominal pain. FINDINGS: 2 AP, supine, portable abdominal radiographs are obtained. Correlation is made with abdomin al CT dated 06/09/2023. There is a nonobstructed abdominal bowel gas pattern. Diffuse mucosal thickeni ng is again seen throughout the colon. No evidence of intraperitoneal free air is seen on these supin e images. There are no abnormal abdominal calcifications. The bony structures appear intact. IMPRESSION: 1. No bowel obstruction. 2. Diffuse mucosal thickening is again seen throughout the colon. This is consistent with the nonspec ific pancolitis seen on the recent abdominal CT. Electronically signed by: Hu Suarez M.D. 06/17/2023 9:44 PM
[2023-06-17] MEDS: MESALAMINE 4 GM/60 ML ENEMA PR SCH (21:59)
[2023-06-18] MEDS: MoRPHine SULFATE 4 MG/ML 1 ML CARP\\VIAL IV PRN ×2 (03:52→22:22)
[2023-06-18] MEDS ORDERED: chlorproMAZINE HCL 25 MG TAB PO ONE (04:23)
[2023-06-18] MEDS: guaiFENesin 600 MG TABCR PO SCH ×2 (04:42→20:25)
[2023-06-18] MEDS: SIMETHICONE 80 MG CHEW PO PRN ×3 (04:43→20:29)
[2023-06-18] MEDS: LACTATED RINGER'S 1,000 ML IV SCH ×4 (05:51→22:19)
[2023-06-18] MEDS: HEPARIN SOD 5,000 UNIT/0.5 ML VIAL SQ SCH ×2 (09:47→20:27)
[2023-06-18] MEDS: predniSONE 20 MG TAB PO SCH (09:48)
[2023-06-18] MEDS: MESALAMINE 800 MG TABCR PO SCH ×3 (09:48→20:27)
[2023-06-18] MEDS: SENNA 8.6 MG TAB PO SCH (09:48)
[2023-06-18] MEDS: PANTOprazole 40 MG in SYRINGE 0 ML IV SCH (11:12)
[2023-06-18] MEDS: MoRPHine SULFATE 2 MG/ML CARP IV PRN ×2 (12:16→18:38)
--- NOTE | 2023-06-18 17:39 | Hospitalist Progress Note ---
Date of Service June 18, 2023 Assessment & Plan (1) Pancolitis: Plan: Pancolitis, diarrhea, hematochezia The overall features are supportive of a diagnosis of ulcerative colitis in the appropriate clinical setting. Colonoscopy shows significant ulcerations throughout the entire colon and a sessile mass in the cecum all areas were biopsied. Patient allowed to have diet GI medicine is recommended prednisone 40 mg a day with a 5 mg a week taper. mesalamine 1600 Milligrams 3 times daily and mesalamine 1 g enemas daily. GI medicine also try to coordinate a referral to inflammatory bowel clinic for biologic agent - CT-A/P: Findings consistent with a pancolitis, moderate in severity. Case reviewed by GI Dr. Pruitt. Recommend deferring antibiotics until stool testing is resulted, GI consultation plans on colonoscopy on 06/14/2023 if patient takes prep appropriately patient with worsening left lower quadrant abdominal pain CT scan abdomen pelvis with oral contrast ordered 06/13/2023 did not show any new evidence of change with exception of the pancolitis as previously found . No history of recent antibiotic use. No prior history of C. difficile. - stool biofire, Covid and C Diff NEGATIVE Blast cell noted on cell differential, was reviewed by Dr. Suarez. Recommended peripheral smear, while some plasma cells/blast cells are noted these are likely reflective of underlying inflammation. Present records reviewed, HIV negative. History of iron deficiency with low ferritin and transferrin saturation. Hemoglobin is 13.2 and borderline microcytic at 86. Once active infection is treated can start on iron therapy (2) Elevated troponin: Plan: Elevated troponin 21.6, repeat normalized at 10.9 EKG: Sinus without territorial ischemic changes No chest pain per patient patient has persistent tachycardia no ischemic changes on EKG. Concern for pulmonary embolism as the patient had chemoprophylaxis held for DVT due to hematochezia. CT angiography is pending Continue metoprolol therapy at this time Endorses tobacco use, denies history of hypertension/[place]/CAD. Suspected demand ischemia patient has been stable and transferred off telemetry all medications and orders reviewed 06/12/2020 (3) Sinus tachycardia: Plan: Heart rate went up to the 130s. CT angio was negative for PE Patient does not seem to be anxious but he does complain of abdominal pain Asked the nurse to give him a dose of morphine After the dose of morphine, heart rate seems to have come down to the 90s range. Check CBC in a.m. for anemia Plan DVT prophylaxis: SCDs, hematochezia has reduced we did institute heparin therapy CODE STATUS: Full code Admission and Anticipated Discharge Date Admission Date: June 09, 2023 Subjective This is a prisoner who was admitted with pancolitis, possibly ulcerative colitis awaiting biopsy results. He does not have any major complaints other than pain. He does not have any palpitations or chest pain. Noted that his heart rate has been elevated. Review of Systems Review of Systems: All systems reviewed & are unremarkable except as noted in Subjective Physical Exam Physical Exam: General: Awake, conversant Heart: S1, S2/regular rate and rhythm, no murmur rubs or gallops Lungs: Clear to auscultation bilaterally. Normal effort Abdomen: Soft/nontender/nondistended. No hepatosplenomegaly Extremities: No clubbing/cyanosis. No edema Behavior: Appropriate, cooperative Results & Data Results & Data Vital Signs (Past 12 Hours) Vital Signs Temp Pulse Resp BP Pulse Ox O2 Del Method 06/18/23 12:26 37.7 C H 91 H 18 128/60 96 Room Air 06/18/23 07:09 36.6 C 121 H 18 121/68 94 Room Air PG Care Time/CCT Total # of Minutes Spent Total Time Spent with Patient: Total time spent is greater than 50% in coordination of care (as documented) at patient's floor/unit and/or counseling patient: Coding Level of Care Code 05017 SUB INP/OBS CARE 2/35MIN Diagnoses Pancolitis K51.00 Elevated troponin R77.8 Sinus tachycardia R00.0
[2023-06-18] MEDS: MESALAMINE 4 GM/60 ML ENEMA PR SCH (20:27)
[2023-06-18] MEDS: oxyCODONE HCL IR 5 MG TAB (IMMEDIATE RELEASE) PO PRN (21:22)
[2023-06-19] MEDS: oxyCODONE HCL IR 5 MG TAB (IMMEDIATE RELEASE) PO PRN ×2 (05:50→17:19)
[2023-06-19] MEDS: LACTATED RINGER'S 1,000 ML IV SCH ×2 (06:16→17:05)
[2023-06-19 07:49] LABS: Basophils # (auto) 0.07 K/uL (0.00-0.20); Basophils % (auto) 0.8 %; Dohle Bodies 2+; Eosinophils # (auto) 0.01 K/uL (0.00-0.50); Eosinophils % (auto) 0.1 %; Hematocrit (blood only) 24.2 % (42.0-52.0); Hemoglobin 8.1 g/dl (14.0-18.0); Immature Granulocytes # (auto) 0.14 K/uL (0.01-0.20); Immature Granulocytes % (auto) 1.5 %; Lymphocytes # (auto) 0.73 K/uL (1.20-3.40); Mean Corpuscular Hemoglobin 29.6 pg (25.0-34.0); Mean Corpuscular Hgb Conc 33.5 g/dL (32.0-36.0); Mean Corpuscular Volume 88.3 fL (80.0-100.0); Mean Platelet Volume 9.2 fL (9.4-12.4); Monocytes # (auto) 0.42 K/uL (0.11-0.59); Monocytes % (auto) 4.6 %; Neutrophils # (auto) 7.76 K/uL (1.40-6.50); Platelet Count 379 K/uL (130-400); Polychromasia 1+; RDW Coefficient of Variation 12.8 % (11.5-14.5); Red Blood Count 2.74 M/uL (4.70-6.10); Toxic Vacuolation 1+; White Blood Count 9.13 K/ul (4.8-10.8)
[2023-06-19] MEDS: MESALAMINE 800 MG TABCR PO SCH ×3 (08:05→20:07)
[2023-06-19] MEDS: guaiFENesin 600 MG TABCR PO SCH ×2 (08:05→20:05)
[2023-06-19] MEDS: HEPARIN SOD 5,000 UNIT/0.5 ML VIAL SQ SCH ×2 (08:05→20:09)
[2023-06-19] MEDS: predniSONE 20 MG TAB PO SCH (08:06)
[2023-06-19] MEDS: SENNA 8.6 MG TAB PO SCH (08:06)
[2023-06-19] MEDS ORDERED: SODIUM CHLORIDE 0.9% 250 ML IV PRN (09:15)
[2023-06-19] MEDS: MoRPHine SULFATE 4 MG/ML 1 ML CARP\\VIAL IV PRN ×2 (10:43→20:03)
[2023-06-19] MEDS: PANTOprazole 40 MG in SYRINGE 0 ML IV SCH (10:51)
--- NOTE | 2023-06-19 14:29 | Ultrasound Report ---
ULTRASOUND RIGHT LOWER EXTREMITY VENOUS CLINICAL HISTORY: Right lower extremity edema. COMPARISON STUDY: No priors. TECHNIQUE: Real-time, grayscale, and color Doppler sonography of the deep veins of the right lower ex tremity was performed from the inguinal crease to the calf. Compression and augmentation were utilize d. FINDINGS: There is no sonographic evidence of deep venous thrombosis identified in the right lower ex tremity. The common femoral, superficial femoral, and popliteal veins are patent and normally radha sible. The greater saphenous vein and the profunda femoris vein at the junction with the common femor al vein are clear. The visualized calf veins are patent. IMPRESSION: There is no sonographic evidence of deep venous thrombosis identified in the right lower extremity. ACT 112: Negative or not required by law. Electronically signed by: Hu Suarez M.D. 06/19/2023 2:27 PM
--- NOTE | 2023-06-19 14:41 | Hospitalist Progress Note ---
Date of Service June 19, 2023 Assessment & Plan (1) Pancolitis: Plan: Pancolitis, diarrhea, hematochezia The overall features are supportive of a diagnosis of ulcerative colitis in the appropriate clinical setting. Colonoscopy shows significant ulcerations throughout the entire colon and a sessile mass in the cecum all areas were biopsied. Patient allowed to have diet GI medicine is recommended prednisone 40 mg a day with a 5 mg a week taper. mesalamine 1600 Milligrams 3 times daily and mesalamine 1 g enemas daily. GI medicine also try to coordinate a referral to inflammatory bowel clinic for biologic agent - CT-A/P: Findings consistent with a pancolitis, moderate in severity. Case reviewed by GI Dr. Pruitt. Recommend deferring antibiotics until stool testing is resulted, GI consultation plans on colonoscopy on 06/14/2023 if patient takes prep appropriately patient with worsening left lower quadrant abdominal pain CT scan abdomen pelvis with oral contrast ordered 06/13/2023 did not show any new evidence of change with exception of the pancolitis as previously found . No history of recent antibiotic use. No prior history of C. difficile. - stool biofire, Covid and C Diff NEGATIVE Blast cell noted on cell differential, was reviewed by Dr. Suarez. Recommended peripheral smear, while some plasma cells/blast cells are noted these are likely reflective of underlying inflammation. Present records reviewed, HIV negative. History of iron deficiency with low ferritin and transferrin saturation. Hemoglobin is 13.2 and borderline microcytic at 86. Once active infection is treated can start on iron therapy (2) Elevated troponin: Plan: Elevated troponin 21.6, repeat normalized at 10.9 EKG: Sinus without territorial ischemic changes No chest pain per patient patient has persistent tachycardia no ischemic changes on EKG. Concern for pulmonary embolism as the patient had chemoprophylaxis held for DVT due to hematochezia. CT angiography is pending Continue metoprolol therapy at this time Endorses tobacco use, denies history of hypertension/[place]/CAD. Suspected demand ischemia patient has been stable and transferred off telemetry all medications and orders reviewed 06/12/2020 (3) Sinus tachycardia: Plan: Heart rate went up to the 130s. CT angio was negative for PE Patient does not seem to be anxious but he does complain of abdominal pain Asked the nurse to give him a dose of morphine After the dose of morphine, heart rate seems to have come down to the 90s range. CBC shows a hemoglobin of 8. It has slowly come down from 13 on admission. We will transfuse 1 unit of blood to see if the heart rate response. Plan DVT prophylaxis: SCDs, hematochezia has reduced we did institute heparin therapy CODE STATUS: Full code Admission and Anticipated Discharge Date Admission Date: June 09, 2023 Subjective patient feels well. Denies any chest pain or shortness of breath. Says that his bowel movements are no more bloody. He has been having loose stools which have improved in consistency and frequency overall in the past few days. Review of Systems Review of Systems: All systems reviewed & are unremarkable except as noted in Subjective Physical Exam Physical Exam: General: Awake, conversant Heart: S1, S2/regular rate and rhythm, no murmur rubs or gallops Lungs: Clear to auscultation bilaterally. Normal effort Abdomen: Soft/nontender/nondistended. No hepatosplenomegaly Extremities: No clubbing/cyanosis. Trace bilateral edema, right more than left Behavior: Appropriate, cooperative Results & Data Results & Data Vital Signs (Past 12 Hours) Vital Signs Temp Pulse Pulse Resp BP BP BP 06/19/23 14:37 36.9 C 104 H 18 109/70 06/19/23 13:03 36.7 C 100 H 20 120/75 06/19/23 12:35 36.7 C 102 H 20 132/79 06/19/23 11:05 36.9 C 94 H 18 122/74 06/19/23 11:05 36.7 C 87 16 115/73 06/19/23 10:49 36.7 C 96 H 18 116/75 06/19/23 10:30 36.9 C 105 H 18 121/78 06/19/23 07:37 36.7 C 99 H 18 120/74 Pulse Ox O2 Del Method 06/19/23 14:37 99 Room Air 06/19/23 13:03 95 06/19/23 12:35 94 06/19/23 11:05 95 06/19/23 11:05 95 06/19/23 10:49 94 06/19/23 10:30 94 06/19/23 07:37 97 Room Air Laboratory Results Abnormal lab results 06/19/23 06/19/23 Range/Units 06:43 06:43 RBC 2.74 L (4.70-6.10) M/uL Hgb 8.1 L (14.0-18.0) g/dl Hct 24.2 L (42.0-52.0) % MPV 9.2 L (9.4-12.4) fL Neut # (Auto) 7.76 H (1.40-6.50) K/uL Lymph # (Auto) 0.73 L (1.20-3.40) K/uL Crossmatch See Detail Diagnostic Findings Venous Doppler Study 06/19/23 12:26 ULTRASOUND RIGHT LOWER EXTREMITY VENOUS CLINICAL HISTORY: Right lower extremity edema. COMPARISON STUDY: No priors. TECHNIQUE: Real-time, grayscale, and color Doppler sonography of the deep veins of the right lower extremity was performed from the inguinal crease to the calf. Compression and augmentation were utilized. FINDINGS: There is no sonographic evidence of deep venous thrombosis identified in the right lower extremity. The common femoral, superficial femoral, and popliteal veins are patent and normally compressible. The greater saphenous vein and the profunda femoris vein at the junction with the common femoral vein are clear. The visualized calf veins are patent. IMPRESSION: There is no sonographic evidence of deep venous thrombosis identified in the right lower extremity. ACT 112: Negative or not required by law. Electronically signed by: Hu Suarez M.D. 06/19/2023 2:27 PM PG Care Time/CCT Total # of Minutes Spent Total Time Spent with Patient: Total time spent is greater than 50% in coordination of care (as documented) at patient's floor/unit and/or counseling patient: Coding Level of Care Code 46269 SUB INP/OBS CARE 2/35MIN Diagnoses Pancolitis K51.00 Elevated troponin R77.8 Sinus tachycardia R00.0
[2023-06-19] MEDS: SIMETHICONE 80 MG CHEW PO PRN (20:06)
[2023-06-19] MEDS: MESALAMINE 4 GM/60 ML ENEMA PR SCH ×2 (20:09→20:17)
[2023-06-19] MEDS ORDERED: chlorproMAZINE HCL 25 MG TAB PO ONE (21:50)
[2023-06-20] MEDS: oxyCODONE HCL IR 5 MG TAB (IMMEDIATE RELEASE) PO PRN ×2 (00:15→19:52)
[2023-06-20] MEDS: LACTATED RINGER'S 1,000 ML IV SCH ×2 (01:06→09:09)
[2023-06-20] MEDS: MoRPHine SULFATE 4 MG/ML 1 ML CARP\\VIAL IV PRN ×2 (06:26→15:24)
[2023-06-20] MEDS: guaiFENesin 600 MG TABCR PO SCH ×2 (09:10→19:52)
[2023-06-20] MEDS: HEPARIN SOD 5,000 UNIT/0.5 ML VIAL SQ SCH ×2 (09:10→19:52)
[2023-06-20] MEDS: MESALAMINE 800 MG TABCR PO SCH ×3 (09:10→19:52)
[2023-06-20] MEDS: predniSONE 20 MG TAB PO SCH (09:10)
[2023-06-20] MEDS: SENNA 8.6 MG TAB PO SCH (09:16)
[2023-06-20 10:17] LABS: Hematocrit (blood only) 30.1 % (42.0-52.0); Mean Corpuscular Hemoglobin 29.9 pg (25.0-34.0); Mean Corpuscular Hgb Conc 33.2 g/dL (32.0-36.0); Mean Corpuscular Volume 90.1 fL (80.0-100.0); Platelet Count 401 K/uL (130-400); RDW Coefficient of Variation 13.2 % (11.5-14.5); RDW Standard Deviation 43.8 fL (36.4-46.3); Red Blood Count 3.34 M/uL (4.70-6.10); White Blood Count 7.95 K/ul (4.8-10.8)
[2023-06-20] MEDS: PANTOprazole 40 MG in SYRINGE 0 ML IV SCH (11:37)
[2023-06-20 12:44] LABS: BUN Creatinine Ratio 18.8 (10-20); Calcium 7.4 mg/dl (8.6-10.3); Creatinine Clr Calc Pharmacy 110.5 ml/min; Est GFR (African American) 128.7 ml/min; Potassium 3.6 mmol/L (3.5-5.1)
--- NOTE | 2023-06-20 14:57 | Hospitalist Progress Note ---
Date of Service June 20, 2023 Assessment & Plan (1) Pancolitis: Plan: Pancolitis, diarrhea, hematochezia The overall features are supportive of a diagnosis of ulcerative colitis in the appropriate clinical setting. Colonoscopy shows significant ulcerations throughout the entire colon and a sessile mass in the cecum all areas were biopsied. Patient allowed to have diet GI medicine is recommended prednisone 40 mg a day with a 5 mg a week taper. mesalamine 1600 Milligrams 3 times daily and mesalamine 1 g enemas daily. GI medicine also try to coordinate a referral to inflammatory bowel clinic for biologic agent - CT-A/P: Findings consistent with a pancolitis, moderate in severity. Case reviewed by GI Dr. Pruitt. Recommend deferring antibiotics until stool testing is resulted, GI consultation plans on colonoscopy on 06/14/2023 if patient takes prep appropriately patient with worsening left lower quadrant abdominal pain CT scan abdomen pelvis with oral contrast ordered 06/13/2023 did not show any new evidence of change with exception of the pancolitis as previously found . No history of recent antibiotic use. No prior history of C. difficile. - stool biofire, Covid and C Diff NEGATIVE Blast cell noted on cell differential, was reviewed by Dr. Suarez. Recommended peripheral smear, while some plasma cells/blast cells are noted these are likely reflective of underlying inflammation. Present records reviewed, HIV negative. History of iron deficiency with low ferritin and transferrin saturation. Hemoglobin is 13.2 and borderline microcytic at 86. Once active infection is treated can start on iron therapy (2) Elevated troponin: Plan: Elevated troponin 21.6, repeat normalized at 10.9 EKG: Sinus without territorial ischemic changes No chest pain per patient patient has persistent tachycardia no ischemic changes on EKG. Concern for pulmonary embolism as the patient had chemoprophylaxis held for DVT due to hematochezia. CT angiography is pending Continue metoprolol therapy at this time Endorses tobacco use, denies history of hypertension/[place]/CAD. Suspected demand ischemia patient has been stable and transferred off telemetry all medications and orders reviewed 06/12/2020 (3) Sinus tachycardia: Plan: Heart rate went up to the 130s. CT angio was negative for PE Patient does not seem to be anxious but he does complain of abdominal pain Asked the nurse to give him a dose of morphine After the dose of morphine, heart rate seems to have come down to the 90s range. CBC shows a hemoglobin of 8. It has slowly come down from 13 on admission. He was transfused 1 unit of blood on 06/19. Noted leg swelling that is new for him. Ordered a dose of Lasix 20 mg IV x1 Plan DVT prophylaxis: SCDs, hematochezia has reduced we did institute heparin therapy CODE STATUS: Full code Admission and Anticipated Discharge Date Admission Date: June 09, 2023 Subjective Patient does not have any major complaints but his heart rate remains elevated. Noted that his leg swelling has gotten worse. He says that his legs were so swollen when he came to the hospital. He was on IV fluids during this hospital stay which was discontinued. He denies any shortness of breath. Review of Systems Review of Systems: All systems reviewed & are unremarkable except as noted in Subjective Physical Exam Physical Exam: General: Awake, conversant Heart: S1, S2/regular rate and rhythm, no murmur rubs or gallops Lungs: Clear to auscultation bilaterally. Normal effort Abdomen: Soft/nontender/nondistended. No hepatosplenomegaly Extremities: No clubbing/cyanosis. 1+ pitting bilateral edema Behavior: Appropriate, cooperative Results & Data Results & Data Vital Signs (Past 12 Hours) Vital Signs Temp Pulse Pulse Resp BP Pulse Ox O2 Del Method 06/20/23 12:03 108 H 127/77 06/20/23 07:47 36.6 C 117 H 18 114/76 96 Room Air Laboratory Results Abnormal lab results 06/20/23 06/20/23 Range/Units 09:58 12:09 RBC 3.34 L (4.70-6.10) M/uL Hgb 10.0 L (14.0-18.0) g/dl Hct 30.1 L (42.0-52.0) % Plt Count 401 H (130-400) K/uL MPV 9.0 L (9.4-12.4) fL Sodium 132 L (136-145) mmol/L Chloride 96 L (98-107) mmol/L Glucose 141 H (70-99(Fasting)) mg/dl Calcium 7.4 L (8.6-10.3) mg/dl PG Care Time/CCT Total # of Minutes Spent Total Time Spent with Patient: Total time spent is greater than 50% in coordination of care (as documented) at patient's floor/unit and/or counseling patient: Coding Level of Care Code 98682 SUB INP/OBS CARE MIN Diagnoses Pancolitis K51.00 Elevated troponin R77.8 Sinus tachycardia R00.0
[2023-06-20] MEDS: SIMETHICONE 80 MG CHEW PO PRN (19:53)
[2023-06-20] MEDS: MESALAMINE 4 GM/60 ML ENEMA PR SCH (21:53)
[2023-06-21] MEDS: MoRPHine SULFATE 2 MG/ML CARP IV PRN (00:05)
[2023-06-21] MEDS: predniSONE 20 MG TAB PO SCH (07:41)
[2023-06-21] MEDS: oxyCODONE HCL IR 5 MG TAB (IMMEDIATE RELEASE) PO PRN ×3 (07:41→22:20)
[2023-06-21] MEDS: MESALAMINE 800 MG TABCR PO SCH ×3 (07:41→20:35)
[2023-06-21] MEDS: SIMETHICONE 80 MG CHEW PO PRN ×2 (07:42→20:35)
[2023-06-21] MEDS: SENNA 8.6 MG TAB PO SCH (07:42)
[2023-06-21] MEDS: guaiFENesin 600 MG TABCR PO SCH ×2 (07:43→20:35)
[2023-06-21] MEDS: HEPARIN SOD 5,000 UNIT/0.5 ML VIAL SQ SCH ×2 (07:43→20:35)
[2023-06-21] MEDS: PANTOprazole 40 MG in SYRINGE 0 ML IV SCH (11:51)
--- NOTE | 2023-06-21 13:01 | Electrocardiogram Report ---
Test Reason : Blood Pressure : / mmHG Vent. Rate : 103 BPM Atrial Rate : 103 BPM P-R Int : 100 ms QRS Dur : 090 ms QT Int : 350 ms P-R-T Axes : 059 018 038 degrees QTc Int : 458 ms Poor data quality, interpretation may be adversely affected Sinus tachycardia with short ND Possible Left atrial enlargement Nonspecific ST abnormality Abnormal ECG When compared with ECG of 17-JUN-2023 11:14, No significant change was found Confirmed by Eduardo Rojo ([id number]) on 06/21/2023 1:00:59 PM Referred By: [facility] Confirmed By:Eduardo Rojo
--- NOTE | 2023-06-21 15:42 | XCELERA ---
[id number] \\[id number]
--- NOTE | 2023-06-21 16:22 | Hospitalist Progress Note ---
Date of Service June 21, 2023 Assessment & Plan (1) Pancolitis: Plan: Pancolitis, diarrhea, hematochezia The overall features are supportive of a diagnosis of ulcerative colitis in the appropriate clinical setting. Colonoscopy shows significant ulcerations throughout the entire colon and a sessile mass in the cecum all areas were biopsied. Patient allowed to have diet GI medicine is recommended prednisone 40 mg a day with a 5 mg a week taper. mesalamine 1600 Milligrams 3 times daily and mesalamine 1 g enemas daily. GI medicine also try to coordinate a referral to inflammatory bowel clinic for biologic agent - CT-A/P: Findings consistent with a pancolitis, moderate in severity. Case reviewed by GI Dr. Pruitt. Recommend deferring antibiotics until stool testing is resulted, GI consultation plans on colonoscopy on 06/14/2023 if patient takes prep appropriately patient with worsening left lower quadrant abdominal pain CT scan abdomen pelvis with oral contrast ordered 06/13/2023 did not show any new evidence of change with exception of the pancolitis as previously found . No history of recent antibiotic use. No prior history of C. difficile. - stool biofire, Covid and C Diff NEGATIVE Blast cell noted on cell differential, was reviewed by Dr. Suarez. Recommended peripheral smear, while some plasma cells/blast cells are noted these are likely reflective of underlying inflammation. Present records reviewed, HIV negative. History of iron deficiency with low ferritin and transferrin saturation. Hemoglobin is 13.2 and borderline microcytic at 86. Once active infection is treated can start on iron therapy (2) Elevated troponin: Plan: Elevated troponin 21.6, repeat normalized at 10.9 EKG: Sinus without territorial ischemic changes No chest pain per patient patient has persistent tachycardia no ischemic changes on EKG. Concern for pulmonary embolism as the patient had chemoprophylaxis held for DVT due to hematochezia. CT angiography is pending Continue metoprolol therapy at this time Endorses tobacco use, denies history of hypertension/MO/CAD. Suspected demand ischemia patient has been stable and transferred off telemetry all medications and orders reviewed 06/12/2020 (3) Sinus tachycardia: Plan: Heart rate went up to the 130s. CT angio was negative for PE Patient does not seem to be anxious but he does complain of abdominal pain Asked the nurse to give him a dose of morphine After the dose of morphine, heart rate seems to have come down to the 90s range. CBC shows a hemoglobin of 8. It has slowly come down from 13 on admission. He was transfused 1 unit of blood on 06/19. Noted leg swelling that is new for him. Ordered a dose of Lasix 20 mg IV x1 on 06/20 Still remains tachycardic EKG shows sinus tachycardia Echocardiogram unremarkable If remains tachycardic, will consult cardiology Plan DVT prophylaxis: SCDs, hematochezia has reduced we did institute heparin therapy CODE STATUS: Full code Admission and Anticipated Discharge Date Admission Date: June 09, 2023 Subjective patient feels well. Denies chest pain or shortness of breath. Denies feeling like his heart is racing. Review of Systems Review of Systems: All systems reviewed & are unremarkable except as noted in Subjective Physical Exam Physical Exam: General: Awake, conversant Heart: S1, S2/regular rate and rhythm, no murmur rubs or gallops Lungs: Clear to auscultation bilaterally. Normal effort Abdomen: Soft/nontender/nondistended. No hepatosplenomegaly Extremities: No clubbing/cyanosis. Trace bilateral edema Behavior: Appropriate, cooperative Results & Data Results & Data Vital Signs (Past 12 Hours) Vital Signs Temp Pulse Resp BP Pulse Ox O2 Del Method 06/21/23 15:20 36.8 C 89 18 146/77 H 93 Room Air 06/21/23 08:00 36.9 C 111 H 18 149/84 H 95 Room Air PG Care Time/CCT Total # of Minutes Spent Total Time Spent with Patient: Total time spent is greater than 50% in coordination of care (as documented) at patient's floor/unit and/or counseling patient: Coding Level of Care Code 88233 SUB INP/OBS CARE 2/35MIN Diagnoses Pancolitis K51.00 Elevated troponin R77.8 Sinus tachycardia R00.0
[2023-06-21] MEDS: MESALAMINE 4 GM/60 ML ENEMA PR SCH (20:35)
[2023-06-22] MEDS: MESALAMINE 800 MG TABCR PO SCH ×3 (08:27→19:31)
[2023-06-22] MEDS: HEPARIN SOD 5,000 UNIT/0.5 ML VIAL SQ SCH ×2 (08:27→19:32)
[2023-06-22] MEDS: guaiFENesin 600 MG TABCR PO SCH ×2 (08:27→19:32)
[2023-06-22] MEDS: predniSONE 20 MG TAB PO SCH (08:27)
[2023-06-22] MEDS: SENNA 8.6 MG TAB PO SCH (08:28)
[2023-06-22] MEDS: PANTOprazole 40 MG in SYRINGE 0 ML IV SCH (11:04)
--- NOTE | 2023-06-22 12:34 | Cardiology Consultation ---
Date of Consultation June 22, 2023 Assessment & Plan (1) Sinus tachycardia: -normal physiologic response to GI illness, abdominal discomfort, and anemia. -normal echocardiogram. -no ischemic changes on EKG. -will likely resolve as he improves clinically. History of Present Illness Attending Physician: Monserrat Brand MD History of Present Illness Mr. Deleon is a 53-year-old male admitted on June 08 with pancolitis. This consultation was ordered as the patient has demonstrated a persistent sinus tachycardia. The patient was in his usual state of health until approximately 1 month prior to presentation. He was experiencing significant abdominal pain, nausea, vomiting, and hematochezia. His workup a pancolitis. He has had a persistent abdominal discomfort and anemia with hemoglobin of 8.1 at its neelam. Hemoglobin currently 10.0. The patient has never known of a cardiac event. He has never experienced exertional chest pain or limiting dyspnea. He further denies syncope, presyncope, PND orthopnea, palpitations, lower extremity edema, and claudication. Currently, patient is resting comfortably in bed, but complaining of mild abdominal discomfort. Past medical and surgical history 1. Seborrheic dermatitis 2. Hearing deficit Social history Inmate at [facility]. Smokes 1 pack of cigarettes daily No alcohol Family history No early coronary artery disease Review of systems A 10 point review of systems was undertaken and negative except for that described above. Allergies Allergy/AdvReac Type Severity Reaction Status Date / Time No Known Allergies Allergy Verified 06/14/23 10:21 Home Medications Medication Instructions Recorded Confirmed Type bisacodyl 5 mg tablet 20 mg PO DAILY 06/09/23 06/09/23 History loperamide 2 mg tablet 2 mg PO UD PRN Diarrhea 06/09/23 06/09/23 History metoclopramide HCl 5 mg tablet 5 mg PO TID PRN as directed 06/09/23 06/09/23 History Patient History Medical History (Updated 06/18/23 @ 17:46 by Monserrat Brand MD) Encounter for pre-operative examination Social History Smoking Status: Current every day smoker Tobacco Type: E-cigarettes / Vaping Hx Alcohol Use: No Hx Substance Use: No Preferred Language: Salvadorean Communication Ability: Effective Design Verification Engineer Required: No Beliefs That Will Affect Care: None Current Living Situation: Other Current Living Situation Comment: [facility] Feels Safe at Home: Yes Assistive Devices: Hearing Aid - Bilateral Results & Data Vital Signs (Past 12 Hours) Vital Signs Temp Pulse Resp BP Pulse Ox O2 Del Method 06/22/23 07:12 37.1 C 121 H 18 122/75 90 Room Air Laboratory Results CBC notes hemoglobin of 10.0, hematocrit 30.1, white count 7.9, platelet count [id number]. Electrolytes note a sodium of 132, potassium 3.6, chloride 96, bicarb 31, BUN 12, creatinine 0.64, and glucose of 141. High sensitivity troponin on presentation was 21.6 with a follow-up value of 10.9. Diagnostic Findings Echocardiogram performed yesterday noted normal left ventricular systolic function with ejection fraction of 65-70%. There was no valvular pathology. EKG notes sinus tachycardia with a ventricular response of 103 beats per minute. There is a nonspecific ST abnormality. PG Care Time/CCT Total # of Minutes Spent Total Time Spent with Patient: Total time spent is greater than 50% in coordination of care (as documented) at patient's floor/unit and/or counseling patient: Coding Level of Care Code 73722 IN/OBS CONSULT LVL 4,60M Diagnoses Sinus tachycardia R00.0
--- NOTE | 2023-06-22 15:52 | Hospitalist Progress Note ---
Date of Service June 22, 2023 Assessment & Plan (1) Pancolitis: Plan: Pancolitis, diarrhea, hematochezia The overall features are supportive of a diagnosis of ulcerative colitis in the appropriate clinical setting. Colonoscopy shows significant ulcerations throughout the entire colon and a sessile mass in the cecum all areas were biopsied. Patient allowed to have diet GI medicine is recommended prednisone 40 mg a day with a 5 mg a week taper. mesalamine 1600 Milligrams 3 times daily and mesalamine 1 g enemas daily. GI medicine also try to coordinate a referral to inflammatory bowel clinic for biologic agent - CT-A/P: Findings consistent with a pancolitis, moderate in severity. Case reviewed by GI Dr. Pruitt. Recommend deferring antibiotics until stool testing is resulted, GI consultation plans on colonoscopy on 06/14/2023 if patient takes prep appropriately patient with worsening left lower quadrant abdominal pain CT scan abdomen pelvis with oral contrast ordered 06/13/2023 did not show any new evidence of change with exception of the pancolitis as previously found . No history of recent antibiotic use. No prior history of C. difficile. - stool biofire, Covid and C Diff NEGATIVE Blast cell noted on cell differential, was reviewed by Dr. Suarez. Recommended peripheral smear, while some plasma cells/blast cells are noted these are likely reflective of underlying inflammation. Present records reviewed, HIV negative. History of iron deficiency with low ferritin and transferrin saturation. Hemoglobin is 13.2 and borderline microcytic at 86. Once active infection is treated can start on iron therapy (2) Elevated troponin: Plan: Elevated troponin 21.6, repeat normalized at 10.9 EKG: Sinus without territorial ischemic changes No chest pain per patient patient has persistent tachycardia no ischemic changes on EKG. Concern for pulmonary embolism as the patient had chemoprophylaxis held for DVT due to hematochezia. CT angiography is pending Continue metoprolol therapy at this time Endorses tobacco use, denies history of hypertension/ND/CAD. Suspected demand ischemia patient has been stable and transferred off telemetry all medications and orders reviewed 06/12/2020 (3) Sinus tachycardia: Plan: Heart rate went up to the 130s. CT angio was negative for PE Patient does not seem to be anxious but he does complain of abdominal pain Asked the nurse to give him a dose of morphine After the dose of morphine, heart rate seems to have come down to the 90s range. CBC shows a hemoglobin of 8. It has slowly come down from 13 on admission. He was transfused 1 unit of blood on 06/19. Noted leg swelling that is new for him. Ordered a dose of Lasix 20 mg IV x1 on 06/20 Still remains tachycardic EKG shows sinus tachycardia Echocardiogram unremarkable Cardiology consulted. Tachycardia is most likely related to GI issues. We will discharge tomorrow Plan DVT prophylaxis: SCDs, hematochezia has reduced we did institute heparin therapy CODE STATUS: Full code Admission and Anticipated Discharge Date Admission Date: June 09, 2023 Subjective patient feels well. Denies chest pain or shortness of breath. Denies palpitations. Review of Systems Review of Systems: All systems reviewed & are unremarkable except as noted in HPI & below Physical Exam Physical Exam: General: Awake, conversant Heart: S1, S2/regular rate and rhythm, no murmur rubs or gallops Lungs: Clear to auscultation bilaterally. Normal effort Abdomen: Soft/nontender/nondistended. No hepatosplenomegaly Extremities: No clubbing/cyanosis. Trace bilateral edema Behavior: Appropriate, cooperative Results & Data Results & Data Vital Signs (Past 12 Hours) Vital Signs Temp Pulse Resp BP BP Pulse Ox O2 Del Method 06/22/23 15:22 36.7 C 99 H 18 119/71 95 Room Air 06/22/23 07:12 37.1 C 121 H 18 122/75 90 Room Air PG Care Time/CCT Total # of Minutes Spent Total Time Spent with Patient: Total time spent is greater than 50% in coordination of care (as documented) at patient's floor/unit and/or counseling patient: Coding Level of Care Code 19477 SUB INP/OBS CARE 2/35MIN Diagnoses Pancolitis K51.00 Elevated troponin R77.8 Sinus tachycardia R00.0
[2023-06-22] MEDS: MESALAMINE 4 GM/60 ML ENEMA PR SCH (19:32)
[2023-06-22] MEDS ORDERED: ACETAMINOPHEN 500 MG TAB PO PRN (20:12)
[2023-06-23] MEDS: MESALAMINE 800 MG TABCR PO SCH (08:39)
[2023-06-23] MEDS: predniSONE 20 MG TAB PO SCH (08:40)
[2023-06-23] MEDS: guaiFENesin 600 MG TABCR PO SCH (08:43)
[2023-06-23] MEDS: HEPARIN SOD 5,000 UNIT/0.5 ML VIAL SQ SCH (08:44)
--- NOTE | 2023-06-23 11:27 | Discharge Summary ---
Date of Service June 23, 2023 Admission HPI Per Admitting Provider Adama is a 53-year-old male with a past medical history of Who presented with nausea/vomiting is found to have pancolitis on CT "Mouse" reports he has had diarrhea for the last month. Has been bright red, dark red, and sometimes dark/black. Nause+vomiting in the last month. Is throwing up less because he is not eating much. Hasn't kep tfood down well since April. Had belly button pain x1 months. Water makes pain worse. Food makes gas pains a little better, but then gets nauseus and vomits. Vomit is 'whatever I ate' and was very dark-leonel black one time, but otherwise no blood. Last BM right before coming over. Loose/liquid. Less since not eating. 8-12BMs per day. no recent antibiotic treatment. Had a similar episode 5-6 eyars ago which got better in about 1 month. Did not have any workup at that time. Denies fevers, denies chills. No chest pain. No chest pressure Belly button/pit of stomach feels sour. No shortness of breath on admission No FHx of similar. Denies any medical problems in his familiy members. Denies prior medical problems. Denies history of IBS prior to now Medical History: Reviewed Medications: Reviewed Surgical History: Reviewed Family history: Reviewed Allergies: Reviewed. NKDA. Social History: Ecigarettes while in prisonlast 2 years. Prior 1ppd ~[id number]. Denies ETOH. Code Status: Full Code Admission Exam Per Admitting Provider General: A&Ox3. NAD. Cooperative. HEENT: Atraumatic, normocephalic. Vision/hearing grossly intact. Pulm: CTAB A&P. -wheezes, -rales, -rhonchi. Symmetrical chest rise. No increased work of breathing. No respiratory distress. Cardiac: RRR, -mrg. Radial pulses intact and symmetrical. Abdominal: Soft .diffusely mildly tender to palpation without guarding/rebound tenderness. Extremities: Warm, dry. No edema. Principal Diagnosis Pancolitis , likely due to ulcerative colitis Sinus tachycardia, likely a response to GI illness Discharge Exam General: Awake, conversant Heart: S1, S2/regular rate and rhythm, no murmur rubs or gallops Lungs: Clear to auscultation bilaterally. Normal effort Abdomen: Soft/nontender/nondistended. No hepatosplenomegaly Extremities: No clubbing/cyanosis. Trace bilateral edema Behavior: Appropriate, cooperative Discharge Data Allergies Allergy/AdvReac Type Severity Reaction Status Date / Time No Known Allergies Allergy Verified 06/14/23 10:21 Consultations 06/09/23 15:58 ED Decision to Admit Stat 06/09/23 23:04 Consult Gastroenterology Routine 06/22/23 08:39 Consult Cardiology Routine Procedures Performed Operation Date: 06/15/23 16:30 Actual Procedures p Colonoscopy Biopsy Cytology - Thiago Lindsey MD Ordered Studies 06/09/23 11:26 CT abd pelvis oral and IV con Stat 06/17/23 15:26 CT angio chest PE protocol Routine 06/19/23 12:26 US venous duplex leg [US venous doppler LE RT] Urgent Hospital Course (1) Pancolitis: Pancolitis, diarrhea, hematochezia The overall features are supportive of a diagnosis of ulcerative colitis in the appropriate clinical setting. Colonoscopy shows significant ulcerations throughout the entire colon and a sessile mass in the cecum all areas were biopsied. GI medicine is recommended prednisone 40 mg a day with a 5 mg a week taper. mesalamine 1600 Milligrams 3 times daily and mesalamine 1 g enemas daily. GI medicine also try to coordinate a referral to inflammatory bowel clinic for biologic agent (2) Elevated troponin: Elevated troponin 21.6, repeat normalized at 10.9 EKG: Sinus without territorial ischemic changes No chest pain per patient. patient has persistent tachycardia no ischemic changes on EKG. Endorses tobacco use, denies history of hypertension/IN/CAD. Suspected demand ischemia patient has been stable and transferred off telemetry all medications and orders reviewed 06/12/2020 (3) Sinus tachycardia: Heart rate went up to the 130s. CT angio was negative for PE Patient does not seem to be anxious but he does complain of abdominal pain Does not seem to be pain induced either. CBC shows a hemoglobin of 8. It has slowly come down from 13 on admission. He was transfused 1 unit of blood on 06/19. Noted leg swelling that is new for him. Ordered a dose of Lasix 20 mg IV x1 on 06/20 Still remains tachycardic EKG shows sinus tachycardia Echocardiogram unremarkable Cardiology consulted. Tachycardia is most likely related to GI issues. Discharge today Plan CODE STATUS: Full code Total Time Total Time Spent Total Time Spent (In Minutes): 35 Discharge Plan Discharge Items Patient Disposition: [facility] Reason For Visit: PANCOLITIS Discharge Diagnosis: Pancolitis , likely due to ulcerative colitis Sinus tachycardia, likely a response to GI illness Activity: Resume your previous activity Non-emergency contact: Primary Care Provider Call non-emergency contact if: you have any medication questions and your symptoms worsen Follow-up/Referrals: Sincere LANGSTON [Primary Care Provider] - Diet: Low Fiber Addtl Attending Provider Instructions: Advised to refer to IBD clinic in 2 weeks as patient will need biologic therapy Advised to note that patient is being discharged on p.o. prednisone 40 mg to be tapered by 5 mg every week starting 06/25. Advised to note that he has been discharged on mesalamine 4 gram per rectally nightly and mesalamine 1600 mg p.o. 3 times daily Pending Studies at Discharge: No Stand-Alone Forms: My [facility] Skilled Items Patient informed of condition?: Yes Discharge Level of Care: Other Communicable Disease: No Discharge Prognosis: Stable Lines: None Urinary Catheter: No Medications and DC Order Prescriptions: New mesalamine 800 mg Tablet,Delayed Release (Dr/Ec) 1,600 mg PO TID 30 Days Qty: 180 0RF mesalamine 4 gram/60 mL Enema 4 g MA HS 30 Days Qty: 1800 0RF prednisone 20 mg Tablet 40 mg PO DAILY 30 Days Qty: 60 0RF Rx Instructions: Patient is being discharged on 40 mg of prednisone once daily. He will need to be tapered off every week by 5 mg starting 06/25. Discontinued loperamide [Anti-Diarrhea] 2 mg Tablet 2 mg PO UD MDD 4 tablets daily PRN (Reason: Diarrhea) Rx Instructions: take 1 tablet after each stool as needed but no more than 4 a day metoclopramide HCl 5 mg Tablet 5 mg PO TID PRN (Reason: as directed) bisacodyl 5 mg Tablet 20 mg PO DAILY Rx Instructions: 4 tablet dose Discharge Orders: Discharge Order (Routine); Ordered 06/23/23 Ordered By: Monserrat Brand Admission Data Admit Date/Time: 06/09/23 16:47 Attending Provider: Monserrat Brand Admit Provider: Angel Hinojosa Primary Care Provider: Sincere LANGSTON Other Providers: Angel Hinojosa ; Wiley Pruitt ; Eduardo Rojo Other Interventions: Discharge Summary Assessment (RN) Last Done: 06/23/23 11:45 Coding Level of Care Code 31674 INP/OBS DISCH >30 MIN Diagnoses Pancolitis K51.00 Elevated troponin R77.8 Sinus tachycardia R00.0
[2023-06-23] MEDS: PANTOprazole 40 MG in SYRINGE 0 ML IV SCH (12:07)
== END 2023-06-23 13:15 | DRG 386 ==
LOC: EDBD → ED 10:46 → SUATTDRO 16:47 → 2N 16:47 → 3N 06-12 11:06

== ENCOUNTER 2023-06-28 09:39 | Inpatient (IN) ==
[2023-06-28 10:39] LABS: Appearance Urine Clear (Clear); Bacteria Urine Automated Negative (Negative); Blood Urine Negative (Negative); Color Urine Orange; Epithelial Cell Urine Auto >30 /lpf (0-5); Glucose Urine UA Negative (Negative); Ketones Urine 1+ (Negative); Leukocyte Esterase Urine Trace (Negative); Nitrite Urine Positive (Negative); Protein Urine 1+ (Negative); Specific Gravity Urine 1.039 (1.000-1.030); Urobilinogen Urine Negative (Negative); pH Urine 5.5 (4.5-7.5)
[2023-06-28 10:57] LABS: Hematocrit (blood only) 32.6 % (42.0-52.0); Hemoglobin 10.6 g/dl (14.0-18.0); Mean Corpuscular Hgb Conc 32.5 g/dL (32.0-36.0); Mean Corpuscular Volume 89.3 fL (80.0-100.0); Mean Platelet Volume 9.6 fL (9.4-12.4); Platelet Count 494 K/uL (130-400); RDW Coefficient of Variation 13.1 % (11.5-14.5); RDW Standard Deviation 42.9 fL (36.4-46.3); Red Blood Count 3.65 M/uL (4.70-6.10)
[2023-06-28 11:02] LABS: Basophils # (auto) 0.16 K/uL (0.00-0.20); Basophils % (auto) 0.7 %; Echinocytes 1+; Eosinophils # (auto) 0.01 K/uL (0.00-0.50); Immature Granulocytes # (auto) 0.34 K/uL (0.01-0.20); Immature Granulocytes % (auto) 1.6 %; Lymphocytes # (auto) 0.91 K/uL (1.20-3.40); Lymphocytes % (auto) 4.2 %; Monocytes # (auto) 0.35 K/uL (0.11-0.59); Monocytes % (auto) 1.6 %; Neutrophils # (auto) 19.92 K/uL (1.40-6.50); Neutrophils % (auto) 91.9 %; Polychromasia 1+; Toxic Vacuolation 1+; White Blood Count 21.69 K/ul (4.8-10.8)
[2023-06-28] MEDS ORDERED: ONDANSETRON INJ 2 MG/ML 2 ML VIAL IV STA (11:12)
[2023-06-28] MEDS ORDERED: SODIUM CHLORIDE 0.9% 2,000 ML IV ONE (11:12)
--- NOTE | 2023-06-28 11:16 | Emergency Department Note ---
Impression & Plan Perforated abdominal viscus, Pneumoperitoneum, Megacolon, toxic ED Provider Note NAME: JIMMY [id number] JOSE AGE: 53 SEX: M : 1970 ARRIVES VIA: Ambulance INFORMANT: Patient ED PROVIDER(S): Ezekiel Francois DO CHIEF COMPLAINT: abdominal pain HPI: Patient is a 53-year-old male who presents to the ER as he was just discharged from the hospital for abdominal pain associated with nausea and persistent diarrhea. Previously having bloody diarrhea which has now resolved. Denies any headache or change in vision. He notes he has not been eating as much and is now drinking less as anything he eats he is vomiting back up. He has not eaten for 2 days. No dysuria, urgency, or frequency. No other exacerbating or remitting factors. Patient notes that his pain significantly worsened yesterday. ADDITIONAL HISTORY OBTAINED: Per HPI Chronic Medical/Social Conditions Affecting Care: Per HPI PAST MEDICAL HISTORY:See Below PAST SURGICAL HISTORY:See Below FAMILY HISTORY:See Below SOCIAL HISTORY:See Below HOME MEDICATIONS:See Below ALLERGIES:See Below VITALS:See Below PHYSICAL EXAMINATION: GENERAL: Sitting up in chair, alert, chronically ill-appearing on 2 L nasal cannula EYE EXAM: normal conjunctiva. PERRL and EOM's grossly intact. OROPHARYNX: Dry mucous membranes NECK: supple, no nuchal rigidity, no adenopathy, non-tender LUNGS: Clear to auscultation. Normal chest wall mechanics HEART: no murmurs, S1 normal and S2 normal ABDOMEN: abdomen soft, non-tender, normo-active bowel sounds, no masses, no rebound or guarding. UPPER EXTREMITIES: upper extremities are grossly normal. LOWER EXTREMITIES: No pitting edema. NEURO EXAM: Normal sensorium, cranial nerves II-XII grossly intact, normal speech, no gross weakness of arms, no gross weakness of legs. MEDICAL DECISION MAKING: Patient is a 53-year-old male who presents ER recently admitted for pancolitis and concern for ulcerative colitis on endoscopy and was discharged around the 10th of this month. He returns for significant worsening of pain yesterday. Has been unable to eat or drink. Heart rate is elevated. IV was established blood work was obtained. Labs show leukocytosis 21,000. Hemoglobin at 10. BMP was unremarkable. Lactate elevated at 2.1. Lipase was unremarkable. UA with nitrates although bilirubin present favor contaminated and nitrates present secondary to the bilirubin. CT abdomen pelvis shows perforation. Patient was given IV Zosyn and I added Flagyl as a CT read was concern for megacolon with the recent profuse diarrhea concern for C. difficile although negative C. difficile testing at the end of May. Held on jay bhakta with patient going to the OR and known perforation. Did discuss with Dr. Alicea who re commended transfer to [facility]. Discussed with [facility] surgeon Dr. Joseph who declined transfer at this time and who recommended that the patient needs to emergently go to the OR. I did update our surgery team who spoke with her surgeon and will take him to the OR. Please see their note for further disposition. External Records Reviewed: As described in [facility] recent colonoscopy with pancolitis and likely ulcerative colitis performed here Consults/Care Managements Discussions: Per [facility] Triage Nursing notes reviewed. Limited review of prior medical records performed Vital Signs: reviewed and remarkable for tachycardic Differential diagnosis: Differential diagnoses includes but is not limited to gastritis, peptic ulcer disease, GERD, gallbladder disease, pancreatitis, small bowel obstruction, appendicitis, diverticulitis, hernia, urinary tract infection, torsion,, perf oration, trauma, infectious. ER treatment provided: See below Diagnostics interpreted by me include EKG and cardiac monitoring as listed below: -Cardiac Monitoring: An order was placed for continuous cardiac monitoring. The monitor shows a rate of 110 with sinus rhythm. -ECG: none -Laboratory studies:Interpreted by me as stated above in MDM and shown below. Imaging studies: Xrays: As interpreted by me:none CTs show: CT abdomen pelvis per my read shows free air within the abdomen CT and pelvis per radiology shows perforation with toxic megacolon and likely abscesses Procedures:none Critical Care: I have personally spent 32 minutes of critical care time in the direct management of this patient. This includes bedside care, interpretation of diagnostic studies, and testing, discussion with consultants, patient, and family members, and other required patient management activities. This 32 mi nutes is in excess of all separately billable procedures. Past Med/Surg History Medical History Encounter for pre-operative examination Social History Smoking Status: Former smoker Tobacco Type: Cigarettes Hx Alcohol Use: No Hx Substance Use: No Preferred Language: Chinese Communication Ability: Effective Mine Safety Director Required: No Beliefs That Will Affect Care: None Current Living Situation: Other Current Living Situation Comment: Correctional facility Feels Safe at Home: Yes Assistive Devices: Hearing Aid - Bilateral Allergies Allergies Allergy/AdvReac Type Severity Reaction Status Date / Time No Known Allergies Allergy Verified 06/14/23 10:21 Home Meds Previous Rx's Medication Instructions Recorded mesalamine 4 gram/60 mL enema 4 g (60 mL) FL HS 1 month #1,800 mL 06/22/23 mesalamine 800 mg tablet,delayed 1,600 mg PO TID 1 month #180 tabs 06/22/23 release prednisone 20 mg tablet 40 mg PO DAILY 1 month #60 tabs 06/22/23 Results & Data (ED) Vital Signs Vital Signs - 24 hr 06/28/23 09:46 Temperature 36.7 C Temperature Source Temporal Artery Scan Pulse Rate 128 H Respiratory Rate 16 Respiratory Effort / Characteristics Non-Labored Respiratory Depth Normal Blood Pressure 123/84 Blood Pressure Mean 97 Pulse Oximetry 97 Oxygen Delivery Method Room Air Sepsis Recent Fever Within 48 Hours No Sepsis New/Unexplained Change in Mental Status N/A Sepsis Action Taken by Nursing No Action Required Laboratory Data 06/28/23 10:16 06/28/23 10:16 Lab Results 06/28/23 06/28/23 06/28/23 Range/Units 10:16 10:16 10:16 WBC 21.69 H (4.8-10.8) K/ul RBC 3.65 L (4.70-6.10) M/uL Hgb 10.6 L (14.0-18.0) g/dl Hct 32.6 L (42.0-52.0) % MCV 89.3 (80.0-100.0) fL MCH 29.0 (25.0-34.0) pg MCHC 32.5 (32.0-36.0) g/dL RDW Std Deviation 42.9 (36.4-46.3) fL RDW Coeff of Ashley 13.1 (11.5-14.5) % Plt Count 494 H (130-400) K/uL MPV 9.6 (9.4-12.4) fL Immature Gran % (Auto) 1.6 % Neut % (Auto) 91.9 % Lymph % (Auto) 4.2 % Schleicher % (Auto) 1.6 % Eos % (Auto) 0.0 % Baso % (Auto) 0.7 % Neut # (Auto) 19.92 H (1.40-6.50) K/uL Lymph # (Auto) 0.91 L (1.20-3.40) K/uL Schleicher # (Auto) 0.35 (0.11-0.59) K/uL Eos # (Auto) 0.01 (0.00-0.50) K/uL Baso # (Auto) 0.16 (0.00-0.20) K/uL Immature Gran # (Auto) 0.34 H (0.01-0.20) K/uL Toxic Vacuolation 1+ Polychromasia 1+ Echinocytes 1+ Sodium 135 L (136-145) mmol/L Potassium 4.6 (3.5-5.1) mmol/L Chloride 98 (98-107) mmol/L Carbon Dioxide 25 (21-32) mmol/L Anion Gap 12 H (3-11) BUN 28 H (6-23) mg/dl Creatinine 0.71 (0.6-1.4) mg/dl Est Cr Clr Drug Dosing Not Reportable Est GFR ( Amer) 123.3 ml/min Est GFR (Non-Af Amer) 106.4 ml/min BUN/Creatinine Ratio 39.4 H (10-20) Glucose 79 (70-99(Fasting)) mg/dl Lactate (0.4-2.0) mmol/L Calcium 7.4 L (8.6-10.3) mg/dl Total Bilirubin 1.1 H (0.2-1.0) mg/dl AST 35 (13-39) U/L ALT 28 (7-52) U/L Alkaline Phosphatase 113 H (34-104) U/L Total Protein 5.6 L (6.0-8.3) gm/dl Albumin 2.2 L (3.4-5.0) gm/dl Globulin 3.4 (2.5-4.0) gm/dl Albumin/Globulin Ratio 0.6 L (0.9-2) Lipase 5 L (11-82) U/L Urine Color [place] Urine Appearance Clear (Clear) Urine pH 5.5 (4.5-7.5) Ur Specific [place] 1.039 H (1.000-1.030) Urine Protein 1+ H (Negative) Urine Glucose (UA) Negative (Negative) Urine Ketones 1+ H (Negative) Urine Blood Negative (Negative) Urine Nitrite Positive A (Negative) Urine Bilirubin 2+ H (Negative) Urine Urobilinogen Negative (Negative) Ur Leukocyte Esterase Trace H (Negative) Urine WBC (Auto) 1-5 (0-5) /hpf Urine RBC (Auto) 0-4 (0-4) /hpf U Hyaline Cast (Auto) 5-10 H (0-5) /lpf U Epithel Cells (Auto) >30 H (0-5) /lpf Urine Bacteria (Auto) Negative (Negative) Ur Renal Epithelial Cell 0-5 (0-5) /lpf Urine Mucus Present A (None Prsent) 06/28/23 Range/Units 12:58 WBC (4.8-10.8) K/ul RBC (4.70-6.10) M/uL Hgb (14.0-18.0) g/dl Hct (42.0-52.0) % MCV (80.0-100.0) fL MCH (25.0-34.0) pg MCHC (32.0-36.0) g/dL RDW Std Deviation (36.4-46.3) fL RDW Coeff of Ashley (11.5-14.5) % Plt Count (130-400) K/uL MPV (9.4-12.4) fL Immature Gran % (Auto) % Neut % (Auto) % Lymph % (Auto) % Schleicher % (Auto) % Eos % (Auto) % Baso % (Auto) % Neut # (Auto) (1.40-6.50) K/uL Lymph # (Auto) (1.20-3.40) K/uL Schleicher # (Auto) (0.11-0.59) K/uL Eos # (Auto) (0.00-0.50) K/uL Baso # (Auto) (0.00-0.20) K/uL Immature Gran # (Auto) (0.01-0.20) K/uL Toxic Vacuolation Polychromasia Echinocytes Sodium (136-145) mmol/L Potassium (3.5-5.1) mmol/L Chloride (98-107) mmol/L Carbon Dioxide (21-32) mmol/L Anion Gap (3-11) BUN (6-23) mg/dl Creatinine (0.6-1.4) mg/dl Est Cr Clr Drug Dosing Est GFR ( Amer) ml/min Est GFR (Non-Af Amer) ml/min BUN/Creatinine Ratio (10-20) Glucose (70-99(Fasting)) mg/dl Lactate 2.1 H* (0.4-2.0) mmol/L Calcium (8.6-10.3) mg/dl Total Bilirubin (0.2-1.0) mg/dl AST (13-39) U/L ALT (7-52) U/L Alkaline Phosphatase (34-104) U/L Total Protein (6.0-8.3) gm/dl Albumin (3.4-5.0) gm/dl Globulin (2.5-4.0) gm/dl Albumin/Globulin Ratio (0.9-2) Lipase (11-82) U/L Urine Color Urine Appearance (Clear) Urine pH (4.5-7.5) Ur Specific [place] (1.000-1.030) Urine Protein (Negative) Urine Glucose (UA) (Negative) Urine Ketones (Negative) Urine Blood (Negative) Urine Nitrite (Negative) Urine Bilirubin (Negative) Urine Urobilinogen (Negative) Ur Leukocyte Esterase (Negative) Urine WBC (Auto) (0-5) /hpf Urine RBC (Auto) (0-4) /hpf U Hyaline Cast (Auto) (0-5) /lpf U Epithel Cells (Auto) (0-5) /lpf Urine Bacteria (Auto) (Negative) Ur Renal Epithelial Cell (0-5) /lpf Urine Mucus (None Prsent) Administered Medications Discontinued Medications Sodium Chloride (Nss) 2,000 mls @ 999 mls/hr IV .Q2H1M ONE Stop: 06/28/23 13:12 Last Admin: 06/28/23 11:50 Dose: 999 mls/hr Documented By: MOMO Piperacillin Sod/Tazobactam Sod (Zosyn) 4.5 gm in 100 mls @ 200 mls/hr IV NOW ONE Stop: 06/28/23 13:09 Last Admin: 06/28/23 13:07 Dose: 200 mls/hr Documented By: HUGO Metronidazole (Flagyl) 500 mg in 100 mls @ 200 mls/hr IV NOW ONE Stop: 06/28/23 13:29 Last Admin: 06/28/23 13:22 Dose: 200 mls/hr Documented By: HUGO Ioversol (Optiray 320 100ml) 90 ml IV ONCE ONE Stop: 06/28/23 11:58 Last Admin: 06/28/23 11:57 Dose: 90 ml Documented By: SAMIRA Morphine Sulfate (Morphine Sulfate 4 Mg/Ml 1 Ml Carp\Vial) 4 mg IV NOW STA Stop: 06/28/23 12:41 Last Admin: 06/28/23 12:50 Dose: 4 mg Documented By: HUGO Ondansetron HCl (Ondansetron Inj 2 Mg/Ml 2 Ml Vial) 4 mg IV NOW STA Stop: 06/28/23 11:13 Last Admin: 06/28/23 11:50 Dose: 4 mg Documented By: KV Imaging Data Radiologist's Impression: Abdomen/Pelvis CT 06/28/23 11:12 CT OF THE ABDOMEN AND PELVIS WITH CONTRAST CLINICAL HISTORY: Left lower quadrant pain. COMPARISON STUDY: CT of the abdomen and pelvis June 09, 2023. TECHNIQUE: Following IV administration of 90 mL of Optiray, axial images of the abdomen and pelvis were obtained from the lung bases to the proximal femurs. Images were reviewed in the axial, sagittal, and coronal planes. IV contrast was administered without complication. Automated exposure control was utilized for the study. A dose lowering technique was utilized adhering to the principles of ALARA. CT DOSE: 454.17 mGy.cm FINDINGS: Note is made of a 1.3 cm subpleural left lower lobe nodule with adjacent ground glass opacity. This was not evident on CT of June 09, 2023. There has been interval development of moderate pneumoperitoneum. Hepatic steatosis is noted. Spleen, adrenal glands, kidneys and pancreas are unremarkable. There is no biliary or pancreatic ductal dilatation. Note is again made of wall thickening involving the entire colon with pericolonic stranding. Irregularity of the wall of the transverse colon is noted. The transverse colon is dilated, measuring 5.9 cm in caliber. Note is made of multiple gas and fluid containing collections within the abdomen and pelvis. The largest is within the right hemipelvis, measuring 11.2 x 5.2 cm. A central pelvic collection to indicate with the larger collection measures 7.5 x 6.5 cm. A central mesenteric gas and fluid containing collection measures 4.8 x 3.9 cm. The appendix is normal. Is no evidence for a bowel obstruction. Smaller pockets of fluid within the abdomen and pelvis are present. Major vasculature is grossly patent. IMPRESSION: 1. Interval development of moderate pneumoperitoneum since CT of June 09, 2023 consistent with perforation of a hollow viscus. The primary consideration for the source of pneumoperitoneum is the transverse colon. The findings suggest pancolitis with interval development of possible toxic megacolon. Multiple gas and fluid containing collections within the abdomen and pelvis suspicious for developing abscesses. Surgical consultation is recommended. Findings discussed with Dr. Francois at time of dictation. 2. 1.3 cm subpleural left lower lobe nodule with mild adjacent groundglass opacity which is new since prior CT. This is probably infectious however a follow-up chest CT in 3 months to ensure resolution is recommended. ACT 112: Negative or not required by law. Electronically signed by: Andres Amanda M.D. 06/28/2023 12:36 PM Discharge Plan Visit Data Chief Complaint: Abdominal Pain Stated Complaint: ABDOMINAL PAIN ED Provider: Ezekiel Francois Discharge Problem: Perforated abdominal viscus, Pneumoperitoneum, Megacolon, toxic
[2023-06-28 11:19] LABS: Bilirubin Urine 2+ (Negative)
[2023-06-28 11:28] LABS: Alanine Aminotransferase 28 U/L (7-52); Albumin Globulin Ratio 0.6 (0.9-2); Albumin Level 2.2 gm/dl (3.4-5.0); Alkaline Phosphatase 113 U/L (34-104); Anion Gap 12 (3-11); Aspartate Aminotransferase 35 U/L (13-39); BUN Creatinine Ratio 39.4 (10-20); Bilirubin,Total 1.1 mg/dl (0.2-1.0); Blood Urea Nitrogen 28 mg/dl (6-23); Calcium 7.4 mg/dl (8.6-10.3); Carbon Dioxide 25 mmol/L (21-32); Chloride 98 mmol/L (98-107); Est GFR (African American) 123.3 ml/min; Est GFR (Non-African American) 106.4 ml/min; Globulin 3.4 gm/dl (2.5-4.0); Glucose 79 mg/dl (70-99(Fasting)); Lipase 5 U/L (11-82); Potassium 4.6 mmol/L (3.5-5.1); Sodium 135 mmol/L (136-145); Total Protein 5.6 gm/dl (6.0-8.3)
[2023-06-28 11:34] LABS: Mucus Urine Present (None Prsent)
[2023-06-28 11:35] LABS: RBC Urine Automated 0-4 /hpf (0-4); Renal Epithelial Cells Urine 0-5 /lpf (0-5)
[2023-06-28] MEDS ORDERED: OPTIRAY 320 100ml IV ONE (11:57)
--- NOTE | 2023-06-28 12:37 | CT Scan Report ---
CT OF THE ABDOMEN AND PELVIS WITH CONTRAST CLINICAL HISTORY: Left lower quadrant pain. COMPARISON STUDY: CT of the abdomen and pelvis June 09, 2023. TECHNIQUE: Following IV administration of 90 mL of Optiray, axial images of the abdomen and pelvis we re obtained from the lung bases to the proximal femurs. Images were reviewed in the axial, sagittal, and coronal planes. IV contrast was administered without complication. Automated exposure control wa s utilized for the study. A dose lowering technique was utilized adhering to the principles of ALARA . CT DOSE: 454.17 mGy.cm FINDINGS: Note is made of a 1.3 cm subpleural left lower lobe nodule with adjacent ground glass opaci ty. This was not evident on CT of June 09, 2023. There has been interval development of moderate pneumoperitoneum. Hepatic steatosis is noted. Spleen, adrenal glands, kidneys and pancreas are unrem arkable. There is no biliary or pancreatic ductal dilatation. Note is again made of wall thickening i nvolving the entire colon with pericolonic stranding. Irregularity of the wall of the transverse colo n is noted. The transverse colon is dilated, measuring 5.9 cm in caliber. Note is made of multiple ga s and fluid containing collections within the abdomen and pelvis. The largest is within the right hem ipelvis, measuring 11.2 x 5.2 cm. A central pelvic collection to indicate with the larger collection measures 7.5 x 6.5 cm. A central mesenteric gas and fluid containing collection measures 4.8 x 3.9 cm . The appendix is normal. Is no evidence for a bowel obstruction. Smaller pockets of fluid within the abdomen and pelvis are present. Major vasculature is grossly patent. IMPRESSION: 1. Interval development of moderate pneumoperitoneum since CT of June 09, 2023 consistent with p erforation of a hollow viscus. The primary consideration for the source of pneumoperitoneum is the tr ansverse colon. The findings suggest pancolitis with interval development of possible toxic megacolon . Multiple gas and fluid containing collections within the abdomen and pelvis suspicious for developi ng abscesses. Surgical consultation is recommended. Findings discussed with Dr. Francois at time of dic tation. 2. 1.3 cm subpleural left lower lobe nodule with mild adjacent groundglass opacity which is new since prior CT. This is probably infectious however a follow-up chest CT in 3 months to ensure resolution is recommended. ACT 112: Negative or not required by law. Electronically signed by: Andres Amanda M.D. 06/28/2023 12:36 PM
[2023-06-28] MEDS ORDERED: MoRPHine SULFATE 4 MG/ML 1 ML CARP\\VIAL IV STA (12:40)
[2023-06-28] MEDS ORDERED: PIPERACILLIN/TAZOBACTAM 4.5 GM/100 ML BAG IV ONE (12:40)
[2023-06-28] MEDS ORDERED: metroNIDAZOLE 500 MG/100 ML BAG IV ONE (13:00)
--- NOTE | 2023-06-28 13:59 | History & Physical Report ---
Date of Service June 28, 2023 Assessment & Plan (1) Ulcerative colitis: (2) Pancolitis: (3) Perforated abdominal viscus: (4) SIRS with acute organ dysfunction due to infectious process: Plan 53-year-old prisoner presents with toxic megacolon, dailey colitis, perforation most likely somewhere in the colon. He has tachycardia, elevated white count, elevated lactate, elevated liver enzymes, and evidence of infectious process in the abdominal cavity. He is displaying signs of sepsis. We attempted to transfer the patient to tertiary care due to the complexity of the issues, however transfer was refused by the tertiary care center. I discussed with the patient the risks and benefits of exploratory laparotomy with probable subtotal colectomy and ileostomy placement. All his questions were answered and he is agreeable to proceed. We will take him to the operating room at the earliest convenience. History of Present Illness Primary Care Provider: IVIS Post 53-year-old prisoner with an extensive GI history presents with a perforated colon. He was in the hospital for over a month between May and June with severe abdominal pain, diarrhea, bloody diarrhea, nausea and vomiting. A colonoscopy was done 13 days ago which demonstrated severe acute pancolitis including severe proctocolitis. There were multiple deep ulcerations throughout the colon as well as multiple inflammatory polyps. [facility] to [facility] following the [facility]. He continued to have pain. He states that yesterday the pain significantly worsened. He has been having fevers and chills. He has been having nausea and vomiting. CT scan today demonstrates free air, multiple loculated fluid collections throughout the mesentery, severe colitis with a toxic megacolon picture. Allergies Allergy/AdvReac Type Severity Reaction Status Date / Time No Known Allergies Allergy Verified 06/14/23 10:21 Home Medications Medication Instructions Recorded Confirmed Type mesalamine 4 gram/60 mL enema 4 g (60 mL) [place] HS 1 month #1,800 mL 06/22/23 Rx mesalamine 800 mg tablet,delayed 1,600 mg PO TID 1 month #180 tabs 06/22/23 Rx release prednisone 20 mg tablet 40 mg PO DAILY 1 month #60 tabs 06/22/23 Rx Past Med/Surg History Medical History Encounter for pre-operative examination Social History Smoking Status: Former smoker Tobacco Type: Cigarettes Hx Alcohol Use: No Hx Substance Use: No Preferred Language: Frisian Communication Ability: Effective Deflector Operator Required: No Beliefs That Will Affect Care: None Current Living Situation: Other Current Living Situation Comment: [facility] Feels Safe at Home: Yes Assistive Devices: Hearing Aid - Bilateral Review of Systems Review of Systems: All systems reviewed & are unremarkable except as noted in HPI & below Physical Exam Constitutional: + ill appearing, + thin, + frail appearing, + disheveled and + diaphoretic Eyes: PERRL, conjunctivae normal, anicteric sclerae Neck: trachea midline, no thyromegaly Respiratory: normal respiratory effort; no respiratory distress and no labored breathing Cardiovascular: Rate/Rhythm: regular rhythm and + tachycardic Gastrointestinal (Abdomen): Inspection/Auscultation: abdomen normal to inspection and + abdomen distended Percussion/Palpation: + abdomen tender (diffusely) and abdomen soft; no guarding Skin: no rashes, warm and dry Psychiatric: A+Ox3, euthymic affect Results & Data Results & Data Vital Signs (Past 12 Hours) Vital Signs Temp Pulse Resp BP Pulse Ox O2 Del Method 06/28/23 09:46 36.7 C 128 H 16 123/84 97 Room Air Laboratory Results 06/28/23 06/28/23 06/28/23 Range/Units 12:58 10:16 10:16 WBC (4.8-10.8) K/ul RBC (4.70-6.10) M/uL Hgb (14.0-18.0) g/dl Hct (42.0-52.0) % MCV (80.0-100.0) fL MCH (25.0-34.0) pg MCHC (32.0-36.0) g/dL RDW Std Deviation (36.4-46.3) fL RDW Coeff of Ashley (11.5-14.5) % Plt Count (130-400) K/uL MPV (9.4-12.4) fL Immature Gran % (Auto) % Neut % (Auto) % Lymph % (Auto) % [place] % (Auto) % Eos % (Auto) % Baso % (Auto) % Neut # (Auto) (1.40-6.50) K/uL Lymph # (Auto) (1.20-3.40) K/uL [place] # (Auto) (0.11-0.59) K/uL Eos # (Auto) (0.00-0.50) K/uL Baso # (Auto) (0.00-0.20) K/uL Immature Gran # (Auto) (0.01-0.20) K/uL Toxic Vacuolation Polychromasia Echinocytes Sodium 135 L (136-145) mmol/L Potassium 4.6 (3.5-5.1) mmol/L Chloride 98 (98-107) mmol/L Carbon Dioxide 25 (21-32) mmol/L Anion Gap 12 H (3-11) BUN 28 H (6-23) mg/dl Creatinine 0.71 (0.6-1.4) mg/dl Est Cr Clr Drug Dosing Not Reportable Est GFR ( Amer) 123.3 ml/min Est GFR (Non-Af Amer) 106.4 ml/min BUN/Creatinine Ratio 39.4 H (10-20) Glucose 79 (70-99(Fasting)) mg/dl Lactate 2.1 H* (0.4-2.0) mmol/L Calcium 7.4 L (8.6-10.3) mg/dl Total Bilirubin 1.1 H (0.2-1.0) mg/dl AST 35 (13-39) U/L ALT 28 (7-52) U/L Alkaline Phosphatase 113 H (34-104) U/L Total Protein 5.6 L (6.0-8.3) gm/dl Albumin 2.2 L (3.4-5.0) gm/dl Globulin 3.4 (2.5-4.0) gm/dl Albumin/Globulin Ratio 0.6 L (0.9-2) Lipase 5 L (11-82) U/L Urine Color [place] Urine Appearance Clear (Clear) Urine pH 5.5 (4.5-7.5) Ur Specific [place] 1.039 H (1.000-1.030) Urine Protein 1+ H (Negative) Urine Glucose (UA) Negative (Negative) Urine Ketones 1+ H (Negative) Urine Blood Negative (Negative) Urine Nitrite Positive A (Negative) Urine Bilirubin 2+ H (Negative) Urine Urobilinogen Negative (Negative) Ur Leukocyte Esterase Trace H (Negative) Urine WBC (Auto) 1-5 (0-5) /hpf Urine RBC (Auto) 0-4 (0-4) /hpf U Hyaline Cast (Auto) 5-10 H (0-5) /lpf U Epithel Cells (Auto) >30 H (0-5) /lpf Urine Bacteria (Auto) Negative (Negative) Ur Renal Epithelial Cell 0-5 (0-5) /lpf Urine Mucus Present A (None Prsent) 06/28/23 Range/Units 10:16 WBC 21.69 H (4.8-10.8) K/ul RBC 3.65 L (4.70-6.10) M/uL Hgb 10.6 L (14.0-18.0) g/dl Hct 32.6 L (42.0-52.0) % MCV 89.3 (80.0-100.0) fL MCH 29.0 (25.0-34.0) pg MCHC 32.5 (32.0-36.0) g/dL RDW Std Deviation 42.9 (36.4-46.3) fL RDW Coeff of Ashley 13.1 (11.5-14.5) % Plt Count 494 H (130-400) K/uL MPV 9.6 (9.4-12.4) fL Immature Gran % (Auto) 1.6 % Neut % (Auto) 91.9 % Lymph % (Auto) 4.2 % [place] % (Auto) 1.6 % Eos % (Auto) 0.0 % Baso % (Auto) 0.7 % Neut # (Auto) 19.92 H (1.40-6.50) K/uL Lymph # (Auto) 0.91 L (1.20-3.40) K/uL [place] # (Auto) 0.35 (0.11-0.59) K/uL Eos # (Auto) 0.01 (0.00-0.50) K/uL Baso # (Auto) 0.16 (0.00-0.20) K/uL Immature Gran # (Auto) 0.34 H (0.01-0.20) K/uL Toxic Vacuolation 1+ Polychromasia 1+ Echinocytes 1+ Sodium (136-145) mmol/L Potassium (3.5-5.1) mmol/L Chloride (98-107) mmol/L Carbon Dioxide (21-32) mmol/L Anion Gap (3-11) BUN (6-23) mg/dl Creatinine (0.6-1.4) mg/dl Est Cr Clr Drug Dosing Est GFR ( Amer) ml/min Est GFR (Non-Af Amer) ml/min BUN/Creatinine Ratio (10-20) Glucose (70-99(Fasting)) mg/dl Lactate (0.4-2.0) mmol/L Calcium (8.6-10.3) mg/dl Total Bilirubin (0.2-1.0) mg/dl AST (13-39) U/L ALT (7-52) U/L Alkaline Phosphatase (34-104) U/L Total Protein (6.0-8.3) gm/dl Albumin (3.4-5.0) gm/dl Globulin (2.5-4.0) gm/dl Albumin/Globulin Ratio (0.9-2) Lipase (11-82) U/L Urine Color Urine Appearance (Clear) Urine pH (4.5-7.5) Ur Specific [place] (1.000-1.030) Urine Protein (Negative) Urine Glucose (UA) (Negative) Urine Ketones (Negative) Urine Blood (Negative) Urine Nitrite (Negative) Urine Bilirubin (Negative) Urine Urobilinogen (Negative) Ur Leukocyte Esterase (Negative) Urine WBC (Auto) (0-5) /hpf Urine RBC (Auto) (0-4) /hpf U Hyaline Cast (Auto) (0-5) /lpf U Epithel Cells (Auto) (0-5) /lpf Urine Bacteria (Auto) (Negative) Ur Renal Epithelial Cell (0-5) /lpf Urine Mucus (None Prsent) Diagnostic Findings CT OF THE ABDOMEN AND PELVIS WITH CONTRAST CLINICAL HISTORY: Left lower quadrant pain. COMPARISON STUDY: CT of the abdomen and pelvis June 09, 2023. TECHNIQUE: Following IV administration of 90 mL of Optiray, axial images of the abdomen and pelvis were obtained from the lung bases to the proximal femurs. Images were reviewed in the axial, sagittal, and coronal planes. IV contrast was administered without complication. Automated exposure control was utilized for the study. A dose lowering technique was utilized adhering to the principles of ALARA. CT DOSE: 454.17 mGy.cm FINDINGS: Note is made of a 1.3 cm subpleural left lower lobe nodule with adjacent ground glass opacity. This was not evident on CT of June 09, 2023. There has been interval development of moderate pneumoperitoneum. Hepatic reynold atosis is noted. Spleen, adrenal glands, kidneys and pancreas are unremarkable. There is no biliary or pancreatic ductal dilatation. Note is again made of wall thickening involving the entire colon with pericolonic stranding. Irregularity of the wall of the transverse colon is noted. The transverse colon is dilated, measuring 5.9 cm in caliber. Note is made of multiple gas and fluid containing collections within the abdomen and pelvis. The largest is within the right hemipelvis, measuring 11.2 x 5.2 cm. A central pelvic collection to indicate with the larger collection measures 7.5 x 6.5 cm. A central mesenteric gas and fluid containing collection measures 4.8 x 3.9 cm. The appendix is normal. Is no evidence for a bowel obstruction. Smaller pockets of fluid within the abdomen and pelvis are present. Major vasculature is grossly patent. IMPRESSION: 1. Interval development of moderate pneumoperitoneum since CT of June 09, 2023 consistent with perforation of a hollow viscus. The primary consideration for the source of pneumoperitoneum is the transverse colon. The findings suggest pancolitis with interval development of possible toxic megacolon. Multiple gas and fluid containing collections within the abdomen and pelvis suspicious for developing abscesses. Surgical consultation is recommended. Findings discussed with Dr. Francois at time of dictation. 2. 1.3 cm subpleural left lower lobe nodule with mild adjacent groundglass opacity which is new since prior CT. This is probably infectious however a follow-up chest CT in 3 months to ensure resolution is recommended. ACT 112: Negative or not required by law.
[2023-06-28] MEDS ORDERED: SODIUM CHLORIDE 0.9% 1,000 ML IV ONE (14:16)
[2023-06-28] MEDS ORDERED: cefOXitin SOD 1,000 MG VIAL ONE (14:23)
[2023-06-28] MEDS ORDERED: BUPIVACAINE/EPINEPHRINE 0.25% 1:200,000 30 ML VIAL ONE (14:23)
[2023-06-28] MEDS ORDERED: DexMEDEtomidine HCL IV 100 MCG/ML VIAL IV ONE (14:24)
[2023-06-28] MEDS ORDERED: ALBUMIN HUMAN 5% 12.5 GM/250 ML VIAL IV ONE (14:24)
[2023-06-28] MEDS ORDERED: ACETAMINOPHEN 1000 MG/100 ML IV IV ONE (14:24)
[2023-06-28] MEDS ORDERED: fentaNYL citrate PF 100 MCG/2 ML VIAL ONE ×2 (14:26→15:26)
[2023-06-28] MEDS ORDERED: MIDAZOLAM HCL 1 MG/ML 2ML VIAL ONE (14:26)
[2023-06-28] MEDS ORDERED: SODIUM CHLORIDE 0.9% PF INJ 10 ML VIAL ONE (14:31)
[2023-06-28] MEDS ORDERED: PROPOFOL IV EMULSION 10 MG/ML 20 ML VIAL IV ONE (14:32)
[2023-06-28] MEDS ORDERED: LIDOCAINE 2% 2 ML VIAL/AMP(20MG/ML) INFIL ONE (14:32)
[2023-06-28] MEDS ORDERED: ROCURONIUM BROMIDE 10 MG/ML 5 ML VIAL IV ONE (14:32)
[2023-06-28] MEDS ORDERED: LACTATED RINGER'S 1,000 ML IV SCH (14:45)
[2023-06-28] MEDS ORDERED: ePHEDrine sulfate 50 MG/ML AMP IV PRN (14:56)
[2023-06-28] MEDS ORDERED: ONDANSETRON INJ 2 MG/ML 2 ML VIAL IV PRN ×2 (14:56→19:58)
[2023-06-28] MEDS ORDERED: ATROPINE SULFATE 0.1 MG/ML 10ML SYR IV PRN (14:56)
[2023-06-28] MEDS ORDERED: HYDROmorphone INJ 2 MG/ML SYR/VIAL IV PRN (14:56)
--- NOTE | 2023-06-28 14:56 | Anesthesiology Consultation ---
Date of Service June 28, 2023 Assessment & Plan ASA [id number] Proposed Anesthesia Anesthesia Type: General Risk / Benefits Reviewed With: PT / POA / Parent / Guardian, Accepts Plan and Informed Consent Obtained History Surgery Operation Date: 06/28/23 13:25 Proposed Procedures p Exploratory Laparotomy, Colon Resection, Ileostomy - Yaya Alicea MD Height/Weight Height: 5 ft 9 in Weight: 56.3 kg Allergies Allergy/AdvReac Type Severity Reaction Status Date / Time No Known Allergies Allergy Verified 06/14/23 10:21 Medications Home Medications Medication Instructions Recorded Confirmed Last Taken mesalamine 4 gram/60 mL enema 4 g (60 mL) [place] HS 1 month #1,800 mL 06/22/23 06/28/23 Unknown mesalamine 800 mg tablet,delayed 1,600 mg PO TID 1 month #180 tabs 06/22/23 06/28/23 Unknown release prednisone 20 mg tablet 40 mg PO DAILY 1 month #60 tabs 06/22/23 06/28/23 Unknown Active Medications Generic Name Dose Route Start Last Admin Trade Name Blaiseq PRN Reason Stop Dose Admin Lactated Ringer's 1,000 mls @ 15 mls/hr 06/28/23 14:45 06/28/23 14:45 Lr IV 07/28/23 14:44 15 mls/hr .Q24H HERNESTO Administration NPO Date Last Intake of Fluids: 06/26/23 Time Last Intake of Fluids: 15:00 Date Last Intake of Solids: 06/26/23 Time Last Intake of Solids: 15:00 Past Medical History Medical History Encounter for pre-operative examination Exercise / Class Metabolic Activity II 4-5 Yardwork/Stairs/Walk up hill Past Anesthesia History No Hx of Anesthesia Complications and No Family Hx of Anesthesia Complications History of PONV No Hx of PONV and No Hx of Motion Sickness Social History Smoking Status: Former smoker Hx Alcohol Use: No Hx Substance Use: No Review of Systems denies fever/cough/ colds/ chest pain/ SOB/ COLTON denies COLTON Physical Exam Vital Signs Last Vital Signs Temp 36.7 C 06/28/23 14:21 Pulse 128 H 06/28/23 09:46 Resp 20 06/28/23 14:21 BP 127/85 06/28/23 14:21 Pulse Ox 94 10/16/23 14:21 O2 Del Method Room Air 06/28/23 14:21 ENMT Mouth: no TMJ abnormality and no dentition abnormality Thyromental Distance: > or= 3.5 Finger Breadths Mallampati Class: IV Neck + facial hair; neck extension not limited Respiratory normal respiratory effort; no respiratory distress Auscultation: lungs clear to auscultation bilaterally Cardiovascular Rate/Rhythm: regular rate and regular rhythm Neurologic moves all extremities Psychiatric Orientation: alert and oriented x 3 Testing Laboratory Results 06/28/23 10:16 06/28/23 10:16 Urine Color [place] 06/28/23 10:16 Urine Appearance Clear (Clear) 06/28/23 10:16 Urine pH 5.5 (4.5-7.5) 06/28/23 10:16 Ur Specific [place] 1.039 (1.000-1.030) H 06/28/23 10:16 Urine Protein 1+ (Negative) H 06/28/23 10:16 Urine Glucose (UA) Negative (Negative) 06/28/23 10:16 Urine Ketones 1+ (Negative) H 06/28/23 10:16 Urine Nitrite Positive (Negative) A 06/28/23 10:16 Ur Leukocyte Esterase Trace (Negative) H 06/28/23 10:16 Urine WBC (Auto) 1-5 /hpf (0-5) 06/28/23 10:16 Urine RBC (Auto) 0-4 /hpf (0-4) 06/28/23 10:16 U Hyaline Cast (Auto) 5-10 /lpf (0-5) H 06/28/23 10:16 U Epithel Cells (Auto) >30 /lpf (0-5) H 06/28/23 10:16 Urine Bacteria (Auto) Negative (Negative) 06/28/23 10:16
[2023-06-28] MEDS ORDERED: PHENYLEPHRINE HCL 10 MG/ML VIAL ONE (16:07)
[2023-06-28] MEDS ORDERED: SUGAMMADEX SODIUM 200 MG/2 ML VIAL IV ONE (16:08)
[2023-06-28] MEDS ORDERED: HYDROmorphone INJ 2 MG/ML SYR/VIAL ONE (17:34)
--- NOTE | 2023-06-28 18:42 | Post Operative Brief Note ---
Immediate Post Op Note v1 Date of Surgery June 28, 2023 Pre & Post Diagnosis Operation Date: 06/28/23 13:25 Pre-Op Diagnosis: Ulcerative colitis Pancolitis Perforated abdominal viscus Systemic inflammatory response syndrome with acute organ dysfunction due to infectious process Post-Op Diagnosis: Ulcerative colitis Pancolitis Perforated abdominal viscus Systemic inflammatory response syndrome with acute organ dysfunction due to infectious process I identified the patient and participated in the time-out.: Yes Procedure Operation Date: 06/28/23 13:25 Actual Procedures p Exploratory Laparotomy, Colon Resection, Ileostomy - Yaya Alicea MD Surgeon Yaya Alicea MD Farm Laborer RICARDO Ortiz assisted with tissue retraction, camera op, closure Estimated Blood Loss 20 Findings Consistent with Post-Op Diagnosis Multiple perforations within the entire length of the colon; large feculent material contained throughout the abdominal cavity. Drains Mondragon Catheter and Denzel-Armas Drain (15f round.)
--- NOTE | 2023-06-28 18:53 | Operative Report ---
Post Operative Report Pre & Post Diagnosis Operation Date: 06/28/23 13:25 Pre-Op Diagnosis: Ulcerative colitis Pancolitis Perforated abdominal viscus Systemic inflammatory response syndrome with acute organ dysfunction due to infectious process Post-Op Diagnosis: Ulcerative colitis Pancolitis Perforated abdominal viscus Systemic inflammatory response syndrome with acute organ dysfunction due to infectious process I identified the patient and participated in the time-out.: Yes Procedure Operation Date: 06/28/23 13:25 Actual Procedures p Exploratory Laparotomy, subtotal colectomy, Ileostomy - Yaya Alicea MD Surgeon Yaya Alicea MD Boilermaker Mechanic RICARDO Ortiz assisted with tissue retraction, camera op, closure Estimated Blood Loss 20 Findings Consistent with Post-Op Diagnosis Multiple different areas of perforation within the cecum/transverse/sigmoid colon; large feculent peritonitis/multiple abscesses throughout the abdominal cavity Specimens Subtotal colectomy Drains 15 Sinhala round DAVID Anesthesia Type General Complications None Description of Procedure Patient taken the operating room, placed supine on the operating table. A timeout was performed, perioperative antibiotics were administered, SCD boots were placed. After adequate anesthesia and analgesia was obtained, Mondragon catheter was placed, and the patient was prepped and draped in the normal sterile fashion. Midline incision was made with a 10 blade scalpel and carried down into the level of the fascia. The fascia was incised with the electrocautery at the umbilicus, and the abdominal cavity was entered. Feculent odor was returned, and murky fluid was identified. The wound was opened to its fullest extent. Murky fluid was suctioned from the abdominal cavity. There appeared to be a dense inflammatory reaction within the abdominal cavity, and the omentum was adhesed to the abdominal wall. As we began to take down the adhesions of the omentum, multiple abscess pockets were identified and entered. These ranged from straight abscess to feculent material. The omental adhesions were all taken down and adhesions were lysed. The omentum was then retracted out of the wound. At this point, a Bookwalter retractor was placed. The abdomen was suctioned free. At this point we commenced and inspection of the abdomen. There was a large hole in the base of the cecum near the appendix which was draining feculent material. Further up on the right colon was another hole along the white line of Toldt, where the colon was adherent. Interesting the transverse colon, there were a few small holes in the colon at this point, feeding an abscess in the mid mesentery. Finally, there was a large linear split in the colon at the level of the sigmoid, with a large amount of feculent material in this area. All of the feculent material was suctioned free. Due to the megacolon, multiple perforations, and the prior colonoscopy from 2 weeks ago demonstrating severe dailey colitis, the decision was made to proceed with subtotal colectomy. We began to mobilize the right colon at the level of the cecum traveling up towards the hepatic flexure. This was done with Bovie electrocautery. Care was taken to identify the duodenum and this was carefully preserved as the colon was mobilized towards the midline. The omentum was quite indurated and inflamed, but we were able to enter the lesser sac, and we mobilized the transverse colon back towards the hepatic flexure. This was done with a combination of Bovie electrocautery and use of the LigaSure device. The entire right colon was mobilized including the hepatic flexure. At this point, a site was selected on the distal terminal ileum and was transected with a MARI stapler. The LigaSure device was used to take down the mesentery of the colon. This proceeded up and around the hepatic flexure. We then turned our attention to the left colon. We continued along the transverse colon, mobilizing it away from the stomach and splenic attachments with the LigaSure device and judicious use of the cautery. The splenic flexure was completely mobilized and taken down. The mesentery of the colon and the distal transverse and splenic flexure was taken down with the LigaSure device. Finally we turned our attention to the descending and sigmoid colon, which was a gain mobilized away from the white line of Toldt with electrocautery. Again, the LigaSure device was used to take the mesentery of the colon down below the level of the linear tear in the sigmoid colon. At this point, a TA 90 stapler was used to transect the colon at the rectosigmoid junction. The colon was removed and sent off the field for specimen. The rectal stump was oversewn with 2-0 Prolene suture left long and both ends. At this point, the abdomen was copiously irrigated with multiple liters of warm saline with Ancef. Attention was turned to hemostasis which was found to be excellent. A 15 Sinhala round DAVID drain was placed through a separate stab incision on the left side and was sewn into place with a 2-0 nylon suture. A site was selected for the ileostomy on the right lower quadrant. Elliptical incision was made in the skin was carried down to the fascia. A cruciate incision was made in the fascia, and the terminal ileum was brought out onto the anterior abdominal wall. It was secured to the fascia with 3-0 silk suture. At this point the fascia in the midline incision was closed with looped #1 PDS. The skin was closed with surgical clips. Once this was completed, the ileostomy was matured in a Sheridan fashion with 3-0 Vicryl sutures. A bag and ostomy device were placed. Dressings were applied. He tolerated the procedure without complication was transferred in stable guarded condition to the PACU and then to the ICU. All instrument needle and sponge counts were correct at the end of the case. My therapeutic recreation assistant was necessary throughout the procedure for tissue retraction, possible camera operation, and closure of the wounds. I understand that section 1842(b)(7)(D) of the Social Security act generally prohibits Medicare physician fee schedule payment for the services of assistants at surgery in teaching hospitals when qualified residents are available to furnish such services. I certify that the services for which payment is claimed were medically necessary and that no qualified resident was available to perform the services. I further understand that these services are subject to postpayment review by the Medicare carrier. I attest to the content of the Intraoperative Record and any orders documented therein. Any exceptions are noted below.
[2023-06-28] MEDS: fentaNYL citrate PF 100 MCG/2 ML VIAL IV PRN ×2 (19:00→19:05)
[2023-06-28] MEDS ORDERED: PROMETHAZINE HCL 12.5 MG in SODIUM CHLORIDE 0.9% 50 ML IV PRN (19:58)
--- NOTE | 2023-06-28 20:00 | Critical Care Consultation ---
Date of Consultation June 28, 2023 Assessment & Plan (1) Perforated abdominal viscus: (2) Sepsis: (3) S/P colon resection: (4) Hard of hearing: (5) Pancolitis: Plan Reason Critically Ill: 49 YOM with history of Ulcerative Colitis- admitted with perforated viscous, pneumoperitoneum, pancolitis and enlarged colon- taken emergently to OR and arrives in ICU post recovery. Neuro - Acute pain secondary to surgical procedure, Metabolic Encephalopathy CAM ICU: Negative - Attempt to maintain normal sleep wake cycle - Pain control with IV Tylenol, tiered morphine - Follow neurological status with clearing of anesthetics as well as infective status - should improve with treatment of underlying Cardiac - Sepsis - Tachycardia likely secondary to sepsis and volume status currently with no organ dysfunction or vasopressor needs - follow electrolytes and replace with hx of decreased intake and n/v - peripheral edema likely secondary to low albumin state - Follow lactate and hemodynamics Respiratory - No acute needs - extubated on room air - ICS while awake GI - S/p bowel resection resulting with ileostomy, pancolitis, perforated viscous with pneumoperitoneum - post above surgery - Continue Zosysn - Continue NGT per Primary service- remain NPO - DAVID drain per primary service - Consider continuing prednisone for his UC with ulceration on lip RENAL/LYTES - No acute needs - ICU electrolyte protocol - Mondragon placed for surgery - Follow urine output tonight- can likely discontinue in the morning ENDO - No acute needs HEME - Leukocytosis, anemia - see below - Anemia- chronic- normocytic normochromic with mildly elevated platelet count- will send iron labs in morning ebl reported as 20ml ID - Sepsis with source as abdominal - SIRS- 2 with source as abdomen- Without organ dysfunction or need for vasopressors but with elevated lactate - Including ER and OR volume patient received 2.1 liters- 1600 of this crystalloid and 500 as colloid in form of albumin - Received Cefoxitin, Falgyl and Zosyn - prior to OR- currently on Zosyn continue - Await blood culture results - Maintain MAPS >65 LINES/IV ACCESS - PIV, NGT, Mondragon, DAVID drain Continue use of these lines - DVT PROPHYLAXIS - SCDS - Chemoprophylaxis on hold post surgical case- initiate when hemostasis is ensured DISPO: ICU for hemodynamic monitoring and initiation of vasopressors and volume resuscitation if needed I have personally spent 50 minutes of critical care time in the direct management of this patient. This is a life/limb threatening event. This includes time spent evaluating patient, direct bedside care, chart review, placing orders, interpretation of diagnostic studies, discussion with consultants, patient, and family members, as well as other required patient management activities. This time is exclusive of all separately billable procedures, and teaching time and separate from and in addition to any other critical care service time. Thank you for allowing us to participate in the care of this patient. Please refer to my attending physician's documentation for any further recommendations. History of Present Illness Reason for Consultation: s/p bowel resection from perforation and toxic megacolon Requesting Physician: Yaya Alicea MD Attending Physician: Yaya Alicea MD History of Present Illness All information in this HPI is noted from chart review only. Patient mildly confused and very hard of hearing. No providers information passed. 53 YOM prisoner with no reported medical history however, patient was recently diagnosed with ulcerative pancolitis on colonoscopy and on biopsy performed on 06/15/23 noting diffuse severe inflammation and altered vascularity and deep ulcerations of the entire colon were reported. He was initiated on prednisone taper and mesalamine. Patient returned to the EMD today for nausea vomiting and abdominal pain. Notes reviewed state this has been ongoing for a few days. He had CT scan performed that noted perforated viscous with pneumoperitoneum as well as remaining pancolitis and possibly toxic megacolon. Previous C. Diff sampling was negative. He was taken to the EMD following declination of acceptance to tertiary care center. In the OR patient was induced with succinylcholine and rocuronium and proceeded with intubation and GA. He required one dose of Wilfredo and appears otherwise to have remained hemodynamically stable through the case. He received 1.5 Liters of crystalloid and 500ml of colloid in the form of albumin. EBL was reported as 20 and urine output was documented as 200 ml. He was transferred to the ICU following PACU recovery. He is awake and conversant but notably hard of hearing and with some component of metabolic encephalopathy. He remains tachycardic with adequate BP and warm extremities. He is with NG tube in place to LIWS, abdominal binder with DAVID drain to LLQ and ileostomy to RLQ. Patient admitted to ICU for following of hemodynamics and laboratory values. Vasopressors if needed. Patient is FULL CODE. Allergies Allergy/AdvReac Type Severity Reaction Status Date / Time No Known Allergies Allergy Verified 06/14/23 10:21 Home Medications Medication Instructions Recorded Confirmed Type mesalamine 4 gram/60 mL enema 4 g (60 mL) VT HS 1 month #1,800 mL 06/22/23 06/28/23 Rx mesalamine 800 mg tablet,delayed 1,600 mg PO TID 1 month #180 tabs 06/22/23 1 Rx release prednisone 20 mg tablet 40 mg PO DAILY 1 month #60 tabs 06/22/23 06/28/23 Rx Patient History Medical History (Updated 06/28/23 @ 20:23 by DORENE Barboza) Abnormal colonoscopy Encounter for pre-operative examination Hard of hearing Ileostomy in place Ulcerative colitis Surgical History (Updated 06/28/23 @ 20:17 by DORENE Barboza) S/P colon resection Social History Smoking Status: Unknown if ever smoked Tobacco Type: Cigarettes Hx Alcohol Use: No Hx Substance Use: No Preferred Language: Uzbek Communication Ability: Effective It Risk And Assurance Senior Manager Required: No Beliefs That Will Affect Care: None Current Living Situation: Other Current Living Situation Comment: [facility] Feels Safe at Home: Yes Assistive Devices: Hearing Aid - Right Review of Systems Review of Systems: REVIEW OF SYSTEMS: Constitutional: (+) fevers, No sweats or chills Eyes: No diplopia, no worsening or blurred vision ENT (+) difficulty hearing with hearing aids in place, no trouble swallowing Respiratory: No cough, sputum, dyspnea at rest or on exertion Cardiovascular: No chest pain, tightness or palpitations Abdomen: (+)pain, nausea, vomiting, diarrhea Musculoskeletal: No joint pain, calf pain, swelling Neurologic: No weakness, numbness/tingling, or balance problems Physical Exam Physical Exam: PHYSICAL EXAM: General: awake, alert, cachectic appearing Head: Normocephalic, atraumatic ENT: PERRLA, EOMI, mucous membranes dry, with ulceration to right lip Neuro: AAO x 1, speech clear and confused of place/time/and answers don't line up with question, strength intact bilaterally 5/5, sensation intact and equal all extremities and dermatomes, Chest: equal rise and fall of the chest, no accessory muscle use,, Clear to auscultation, on room air, Cardiac: Regular rate and rhythm, telemetry reviewed- NSR no ectopy, skin warm dry, cap refill <3 seconds, peripheral pulses +2 no JVD, no murmur, trace 1+ pitting edema to bilateral lower extremities GI: hypoactive bowel sounds, soft, tender to palpation post surgical, no rebound, ileostomy in place to RLQ, DAVID drain to LLQ draining serosang drainage, NG tube in place : Mondragon to gravity draining light neeta urine, Psych: Flat affect Results & Data Results & Data Vital Signs (Past 12 Hours) Vital Signs Temp Pulse Pulse Resp BP BP Pulse Ox 06/28/23 19:30 116 H 18 133/90 99 06/28/23 19:20 118 H 18 129/95 98 06/28/23 19:05 114 H 20 138/88 99 06/28/23 18:55 113 H 18 138/97 99 06/28/23 18:45 36.6 C 111 H 18 141/92 H 97 06/28/23 18:35 96 H 16 133/92 99 06/28/23 18:25 96 H 18 144/95 H 100 06/28/23 18:15 88 15 141/84 H 100 06/28/23 18:05 36.2 C L 90 20 145/83 H 93 06/28/23 14:21 36.7 C 20 127/85 94 06/28/23 09:46 36.7 C 128 H 16 123/84 97 O2 Del Method O2 Flow Rate 06/28/23 19:30 Nasal Cannula 2 06/28/23 19:20 Nasal Cannula 2 06/28/23 19:05 Nasal Cannula 2 06/28/23 18:55 Nasal Cannula 2 06/28/23 18:45 Nasal Cannula 2 06/28/23 18:35 Nasal Cannula 2 06/28/23 18:25 Nasal Cannula 2 06/28/23 18:15 Nasal Cannula 2 06/28/23 18:05 Nasal Cannula 2 06/28/23 14:21 Room Air 06/28/23 09:46 Room Air Laboratory Results Abnormal lab results 06/28/23 06/28/23 06/28/23 Range/Units 10:16 10:16 10:16 WBC 21.69 H (4.8-10.8) K/ul RBC 3.65 L (4.70-6.10) M/uL Hgb 10.6 L (14.0-18.0) g/dl Hct 32.6 L (42.0-52.0) % Plt Count 494 H (130-400) K/uL Neut # (Auto) 19.92 H (1.40-6.50) K/uL Lymph # (Auto) 0.91 L (1.20-3.40) K/uL Immature Gran # (Auto) 0.34 H (0.01-0.20) K/uL Sodium 135 L (136-145) mmol/L Anion Gap 12 H (3-11) BUN 28 H (6-23) mg/dl BUN/Creatinine Ratio 39.4 H (10-20) Lactate (0.4-2.0) mmol/L Calcium 7.4 L (8.6-10.3) mg/dl Total Bilirubin 1.1 H (0.2-1.0) mg/dl Alkaline Phosphatase 113 H (34-104) U/L Total Protein 5.6 L (6.0-8.3) gm/dl Albumin 2.2 L (3.4-5.0) gm/dl Albumin/Globulin Ratio 0.6 L (0.9-2) Lipase 5 L (11-82) U/L Ur Specific Ewing 1.039 H (1.000-1.030) Urine Protein 1+ H (Negative) Urine Ketones 1+ H (Negative) Urine Nitrite Positive A (Negative) Urine Bilirubin 2+ H (Negative) Ur Leukocyte Esterase Trace H (Negative) U Hyaline Cast (Auto) 5-10 H (0-5) /lpf U Epithel Cells (Auto) >30 H (0-5) /lpf Urine Mucus Present A (None Prsent) 06/28/23 06/28/23 Range/Units 12:58 18:30 WBC (4.8-10.8) K/ul RBC (4.70-6.10) M/uL Hgb (14.0-18.0) g/dl Hct (42.0-52.0) % Plt Count (130-400) K/uL Neut # (Auto) (1.40-6.50) K/uL Lymph # (Auto) (1.20-3.40) K/uL Immature Gran # (Auto) (0.01-0.20) K/uL Sodium (136-145) mmol/L Anion Gap (3-11) BUN (6-23) mg/dl BUN/Creatinine Ratio (10-20) Lactate 2.1 H* 2.4 H* (0.4-2.0) mmol/L Calcium (8.6-10.3) mg/dl Total Bilirubin (0.2-1.0) mg/dl Alkaline Phosphatase (34-104) U/L Total Protein (6.0-8.3) gm/dl Albumin (3.4-5.0) gm/dl Albumin/Globulin Ratio (0.9-2) Lipase (11-82) U/L Ur Specific Ewing (1.000-1.030) Urine Protein (Negative) Urine Ketones (Negative) Urine Nitrite (Negative) Urine Bilirubin (Negative) Ur Leukocyte Esterase (Negative) U Hyaline Cast (Auto) (0-5) /lpf U Epithel Cells (Auto) (0-5) /lpf Urine Mucus (None Prsent) Diagnostic Findings Abdomen/Pelvis CT 06/28/23 11:12 CT OF THE ABDOMEN AND PELVIS WITH CONTRAST CLINICAL HISTORY: Left lower quadrant pain. COMPARISON STUDY: CT of the abdomen and pelvis June 09, 2023. TECHNIQUE: Following IV administration of 90 mL of Optiray, axial images of the abdomen and pelvis were obtained from the lung bases to the proximal femurs. Images were reviewed in the axial, sagittal, and coronal planes. IV contrast was administered without complication. Automated exposure control was utilized for the study. A dose lowering technique was utilized adhering to the principles of ALARA. CT DOSE: 454.17 mGy.cm FINDINGS: Note is made of a 1.3 cm subpleural left lower lobe nodule with adjacent ground glass opacity. This was not evident on CT of June 09, 2023. There has been interval development of moderate pneumoperitoneum. Hepatic steatosis is noted. Spleen, adrenal glands, kidneys and pancreas are unremarkable. There is no biliary or pancreatic ductal dilatation. Note is again made of wall thickening involving the entire colon with pericolonic stranding. Irregularity of the wall of the transverse colon is noted. The transverse colon is dilated, measuring 5.9 cm in caliber. Note is made of multiple gas and fluid containing collections within the abdomen and pelvis. The largest is within the right hemipelvis, measuring 11.2 x 5.2 cm. A central pelvic collection to indicate with the larger collection measures 7.5 x 6.5 cm. A central mesenteric gas and fluid containing collection measures 4.8 x 3.9 cm. The appendix is normal. Is no evidence for a bowel obstruction. Smaller pockets of fluid within the abdomen and pelvis are present. Major vasculature is grossly patent. IMPRESSION: 1. Interval development of moderate pneumoperitoneum since CT of June 09, 2023 consistent with perforation of a hollow viscus. The primary consideration for the source of pneumoperitoneum is the transverse colon. The findings suggest pancolitis with interval development of possible toxic megacolon. Multiple gas and fluid containing collections within the abdomen and pelvis suspicious for developing abscesses. Surgical consultation is recommended. Findings discussed with Dr. Francois at time of dictation. 2. 1.3 cm subpleural left lower lobe nodule with mild adjacent groundglass opacity which is new since prior CT. This is probably infectious however a follow-up chest CT in 3 months to ensure resolution is recommended. ACT 112: Negative or not required by law. Electronically signed by: Andres Amanda M.D. 06/28/2023 12:36 PM Medications Administered Home Medications mesalamine 4 gram/60 mL enema 4 g (60 mL) VT HS 1 month #1,800 mL 06/22/23 [Rx Confirmed 06/28/23] mesalamine 800 mg tablet,delayed release 1,600 mg PO TID 1 month #180 tabs 06/22/23 [Rx Confirmed 06/28/23] prednisone 20 mg tablet 40 mg PO DAILY 1 month #60 tabs 06/22/23 [Rx Confirmed 06/28/23] Active Medications Promethazine HCl 12.5 mg/ (Sodium Chloride) 50.5 mls @ 204 mls/hr IV Q6H PRN PRN Reason: Nausea And Vomiting Stop: 07/28/23 19:57 Piperacillin Sod/Tazobactam (Sod 4.5 gm/ Dextrose) 100 mls @ 25 mls/hr IV Q8H HERNESTO; Protocol Stop: 07/08/23 19:59 Lactated Ringer's (Lr) 1,000 mls @ 100 mls/hr IV .Q10H HERNESTO Stop: 07/28/23 19:57 Last Admin: 06/28/23 20:18 Dose: 100 mls/hr Pantoprazole Sodium 40 mg/ (Syringe) 10 mls @ 5 mls/min IV DAILY@1100 [facility] Stop: 07/29/23 10:59 Morphine Sulfate (Morphine Sulfate 4 Mg/Ml 1 Ml Carp\Vial) 4 mg IV Q3H PRN PRN Reason: Pain (6,7,8,9,10) Stop: 07/12/23 19:57 Last Admin: 06/28/23 20:18 Dose: 4 mg Morphine Sulfate (Morphine Sulfate 2 Mg/Ml Carp) 2 mg IV Q3H PRN PRN Reason: Pain (1,2,3,4,5) & Pre PT Stop: 07/12/23 19:57 Ondansetron HCl (Ondansetron Inj 2 Mg/Ml 2 Ml Vial) 4 mg IV Q4H PRN PRN Reason: Nausea And Vomiting Stop: 07/28/23 19:57 ECG Additional Comments: none obtained on admissioin Coding Level of Care Code 03478 CRITICAL CARE 1ST 30-74M Diagnoses Perforated abdominal viscus R19.8 Sepsis A41.9 S/P colon resection Z90.49 Hard of hearing H91.90 Pancolitis K51.00
[2023-06-28] MEDS: MoRPHine SULFATE 4 MG/ML 1 ML CARP\\VIAL IV PRN (20:18)
[2023-06-28] MEDS: LACTATED RINGER'S 1,000 ML IV SCH (20:18)
--- NOTE | 2023-06-28 20:26 | Anesthesiology Progress Note ---
Date of Service June 28, 2023 Anesthesia Post Procedure Vital Signs Vital Signs: Temp Pulse Pulse Resp BP BP Pulse Ox 06/28/23 19:30 116 H 18 133/90 99 06/28/23 19:20 118 H 18 129/95 98 06/28/23 19:05 114 H 20 138/88 99 06/28/23 18:55 113 H 18 138/97 99 06/28/23 18:45 36.6 C 111 H 18 141/92 H 97 06/28/23 18:35 96 H 16 133/92 99 06/28/23 18:25 96 H 18 144/95 H 100 06/28/23 18:15 88 15 141/84 H 100 06/28/23 18:05 36.2 C L 90 20 145/83 H 93 06/28/23 14:21 36.7 C 20 127/85 94 06/28/23 09:46 36.7 C 128 H 16 123/84 97 O2 Del Method O2 Flow Rate 06/28/23 19:30 Nasal Cannula 2 06/28/23 19:20 Nasal Cannula 2 06/28/23 19:05 Nasal Cannula 2 06/28/23 18:55 Nasal Cannula 2 06/28/23 18:45 Nasal Cannula 2 06/28/23 18:35 Nasal Cannula 2 06/28/23 18:25 Nasal Cannula 2 06/28/23 18:15 Nasal Cannula 2 06/28/23 18:05 Nasal Cannula 2 06/28/23 14:21 Room Air 06/28/23 09:46 Room Air Pain Intensity Abdomen: Pain Intensity: 4 Transfer of Care Handoff Completed per policy Notes Mental Status: alert / awake / arousable and participated in evaluation Patient Amnestic to Procedure: Yes Nausea / Vomiting: adequately controlled Pain: adequately controlled Airway Patency, RR, SpO2: stable & adequate BP & HR: stable & adequate Hydration State: stable & adequate Anesthetic Complications: no major complications apparent and Pt Satisfied with anesthetic care
[2023-06-28] MEDS: PIPERACILLIN/TAZOBACTAM 4.5 GM in DEXTROSE 5% MINI-B 100 ML IV SCH (20:44)
[2023-06-28] MEDS ORDERED: ACETAMINOPHEN 1,000 MG/100 ML VIAL IV PRN (21:28)
[2023-06-28] MEDS ORDERED: LACTATED RINGER'S 250 ML IV ONE ×2 (21:28→23:18)
[2023-06-28] MEDS ORDERED: STAT IV/IM STA (21:29)
[2023-06-28] MEDS ORDERED: CALCIUM GLUCONATE 10% 1,000 MG in SODIUM CHLOR 0.9% MINI-B 50 ML IV ONE (21:29)
[2023-06-28 21:46] LABS: Calcium 7.3 mg/dl (8.6-10.3); Creatinine Clr Calc Pharmacy 71.5 ml/min; Est GFR (African American) 106.1 ml/min; Est GFR (Non-African American) 91.6 ml/min; Magnesium 2.1 mg/dl (1.7-2.4); Phosphorus 5.2 mg/dl (2.5-4.9); Potassium 4.2 mmol/L (3.5-5.1)
[2023-06-29] MEDS: MoRPHine SULFATE 4 MG/ML 1 ML CARP\\VIAL IV PRN (00:36)
[2023-06-29] MEDS ORDERED: ALBUMIN 5% 250 ML IV ONE (03:21)
[2023-06-29] MEDS: MoRPHine SULFATE 2 MG/ML CARP IV PRN ×2 (04:13→07:43)
[2023-06-29] MEDS: PIPERACILLIN/TAZOBACTAM 4.5 GM in DEXTROSE 5% MINI-B 100 ML IV SCH ×3 (04:13→20:10)
[2023-06-29] MEDS: LACTATED RINGER'S 1,000 ML IV SCH ×3 (05:30→19:15)
[2023-06-29] MEDS ORDERED: LACTATED RINGER'S 500 ML IV ONE ×3 (05:33→14:18)
[2023-06-29 05:40] LABS: Anion Gap 11 (3-11); BUN Creatinine Ratio 24.8 (10-20); Blood Urea Nitrogen 35 mg/dl (6-23); Calcium 7.2 mg/dl (8.6-10.3); Carbon Dioxide 25 mmol/L (21-32); Chloride 102 mmol/L (98-107); Creatinine Clr Calc Pharmacy 49.4 ml/min; Est GFR (Non-African American) 56.1 ml/min; Glucose 86 mg/dl (70-99(Fasting)); Potassium 4.5 mmol/L (3.5-5.1); Sodium 138 mmol/L (136-145)
[2023-06-29 05:53] LABS: Ferritin 565.7 ng/ml (8-388)
[2023-06-29 05:56] LABS: Folate (Folic Acid),Ser orPlas 13.72 ng/ml (>5.38)
[2023-06-29 05:57] LABS: Iron < 10 mcg/dl (35-175); Vitamin B12 > 1500 pg/ml (180-914)
[2023-06-29] MEDS: ICU ELECTROLYTE REPLACEMENT PROTOCOL SCH ×2 (05:59→17:42)
[2023-06-29 06:17] LABS: Basophils # (auto) 0.01 K/uL (0.00-0.20); Basophils % (auto) 0.1 %; Hematocrit (blood only) 33.8 % (42.0-52.0); Hemoglobin 10.8 g/dl (14.0-18.0); Immature Granulocytes # (auto) 0.13 K/uL (0.01-0.20); Lymphocytes # (auto) 0.77 K/uL (1.20-3.40); Lymphocytes % (auto) 6.2 %; Mean Corpuscular Hemoglobin 28.8 pg (25.0-34.0); Mean Corpuscular Volume 90.1 fL (80.0-100.0); Mean Platelet Volume 9.6 fL (9.4-12.4); Monocytes # (auto) 0.14 K/uL (0.11-0.59); Monocytes % (auto) 1.1 %; Neutrophils # (auto) 11.35 K/uL (1.40-6.50); Neutrophils % (auto) 91.6 %; Platelet Count 345 K/uL (130-400); RDW Coefficient of Variation 13.8 % (11.5-14.5); RDW Standard Deviation 45.2 fL (36.4-46.3); Red Blood Count 3.75 M/uL (4.70-6.10)
--- NOTE | 2023-06-29 08:16 | Critical Care Progress Note ---
Date of Service June 29, 2023 Assessment & Plan (1) Perforated abdominal viscus: (2) Sepsis: (3) S/P colon resection: (4) Hard of hearing: (5) Pancolitis: Plan Reason Critically Ill: 49 YOM with history of Ulcerative Colitis- admitted with perforated viscous, pneumoperitoneum, pancolitis and enlarged colon- taken emergently to OR and arrives in ICU post recovery. Neuro - Acute pain secondary to surgical procedure, Metabolic Encephalopathy CAM ICU: Negative - Attempt to maintain normal sleep wake cycle - Pain control with IV Tylenol, tiered morphine Cardiac - Sepsis - Tachycardia likely secondary to sepsis and volume status currently with no organ dysfunction or vasopressor needs - follow electrolytes and replace with hx of decreased intake and n/v - peripheral edema likely secondary to low albumin state -Lactic acidosis improving Respiratory - No acute needs - extubated on room air - ICS while awake GI - S/p bowel resection resulting with ileostomy, pancolitis, perforated viscous with pneumoperitoneum - post above surgery - Continue Zosysn - Continue NGT per Primary service- remain NPO - DAVID drain per primary service RENAL/LYTES - No acute needs - ICU electrolyte protocol - Mondragon placed for surgery -We will likely discontinue Mondragon catheter as long as the patient is able to get out of bed and sit up. ENDO - No acute needs HEME - Leukocytosis, anemia - see below - Anemia-stable ID - Sepsis with source as abdominal - SIRS- 2 with source as abdomen- Without organ dysfunction or need for vasopressors but with elevated lactate -Continue Zosyn. - Await blood culture results - Maintain MAPS >65 LINES/IV ACCESS - PIV, NGT, Mondragon, DAVID drain Continue use of these lines - DVT PROPHYLAXIS - SCDS - Chemoprophylaxis on hold post surgical case- initiate when hemostasis is ensured DISPO: Can likely downgrade out of the ICU. Dispo per surgery service. Admission and Anticipated Discharge Date Admission Date: June 28, 2023 Subjective Patient seen and examined this morning. He is laying in bed. His right arm shackled to the bed. There is a parcel post officer at bedside. Patient denies any nausea. He does endorse some mild abdominal pain. He has abdominal binder in place. He is mildly tachycardic. Systolic blood pressures have been acceptable. He is saturating 92 to 93% on room air. Review of Systems Review of Systems: All systems reviewed & are unremarkable except as noted in HPI & below Physical Exam Physical Exam: PHYSICAL EXAM: General: awake, alert, cachectic appearing Head: Normocephalic, atraumatic ENT: PERRLA, EOMI, mucous membranes dry, with ulceration to right lip Neuro: AAO x 1, speech clear and confused of place/time/and answers don't line up with question, strength intact bilaterally 5/5, sensation intact and equal all extremities and dermatomes, Chest: equal rise and fall of the chest, no accessory muscle use,, Clear to auscultation, on room air, Cardiac: Regular rate and rhythm, telemetry reviewed- NSR no ectopy, skin warm dry, cap refill <3 seconds, peripheral pulses +2 no JVD, no murmur, trace 1+ pitting edema to bilateral lower extremities GI: hypoactive bowel sounds, soft, tender to palpation post surgical, no rebound, ileostomy in place to RLQ, DAVID drain to LLQ draining serosang drainage, NG tube in place : Mondragon to gravity draining light neeta urine, Psych: Flat affect Results & Data Results & Data Vital Signs (Past 12 Hours) Vital Signs Temp Pulse Resp BP Pulse Ox O2 Del Method 06/29/23 07:45 112 H 27 H 106/70 92 Room Air 06/29/23 07:30 102 H 23 109/62 92 Room Air 06/29/23 07:15 110 H 23 113/76 92 Room Air 06/29/23 07:00 108 H 25 H 112/74 93 Room Air 06/29/23 07:00 36.5 C 06/29/23 06:00 107 H 20 111/68 94 Room Air 06/29/23 05:45 106 H 23 94/79 L 93 Room Air 06/29/23 05:15 106 H 16 105/62 95 06/29/23 05:37 36.7 C 06/29/23 05:00 105 H 16 106/68 95 06/29/23 04:30 114 H 24 109/72 94 06/29/23 04:00 118 H 28 H 104/74 95 06/29/23 03:47 119 H 24 80/69 L 95 06/29/23 03:46 120 H 29 H 74/59 L 95 06/29/23 03:30 120 H 24 98/67 L 96 06/29/23 03:00 120 H 28 H 93/73 L 95 06/29/23 02:30 120 H 24 95/66 L 94 Room Air 06/29/23 02:00 118 H 25 H 99/69 L 93 Room Air 06/29/23 01:30 117 H 23 97/68 L 93 06/29/23 01:00 117 H 19 103/78 93 06/29/23 00:45 116 H 21 107/77 93 06/29/23 00:30 115 H 14 110/75 94 06/29/23 00:00 113 H 20 104/75 94 06/28/23 23:30 111 H 18 110/74 94 06/28/23 23:14 113 H 22 114/74 94 06/28/23 22:30 111 H 17 120/74 95 06/28/23 22:15 116 H 18 121/86 95 06/28/23 21:45 121 H 20 126/78 96 06/29/23 00:43 36.7 C 06/29/23 00:30 113 H 06/28/23 21:30 125 H 17 117/79 94 Room Air 06/28/23 21:30 117/79 06/28/23 21:00 128 H 17 129/77 94 06/28/23 20:45 125 H 20 138/91 94 06/28/23 20:30 126 H 26 H 137/96 94 06/28/23 20:15 122 H 14 130/91 95 Coding Level of Care Code 63456 SUB INP/OBS CARE MIN Diagnoses Perforated abdominal viscus R19.8 Sepsis A41.9 S/P colon resection Z90.49 Hard of hearing H91.90 Pancolitis K51.00
[2023-06-29] MEDS: HYDROCORTISONE SOD 50 MG in SYRINGE 0 ML IV SCH ×2 (10:01→20:10)
[2023-06-29] MEDS ORDERED: PROMETHAZINE HCL 12.5 MG in SODIUM CHLORIDE 0.9% 50 ML IV PRN (10:08)
[2023-06-29] MEDS: THIAMINE HCL 200 MG in SODIUM CHLORIDE 0.9% 50 ML IV SCH (10:11)
[2023-06-29] MEDS: PANTOprazole 40 MG in SYRINGE 0 ML IV SCH (10:31)
[2023-06-29] MEDS ORDERED: CASPOFUNGIN 70 MG in SODIUM CHLORIDE 0.9% 250 ML IV SCH (11:00)
[2023-06-29] MEDS: HYDROmorphone INJ 0.5 MG/0.5 ML SYR IV PRN ×3 (11:16→21:01)
--- NOTE | 2023-06-29 16:05 | Surgery Progress Note ---
Date of Service June 29, 2023 Assessment & Plan (1) Ulcerative colitis: (2) Pancolitis: (3) Perforated abdominal viscus: (4) SIRS with acute organ dysfunction due to infectious process: Plan POD # 1 s/p ex lap , subtotal colectomy and ileostomy formation afebrile, vss postop pain moderate but controlled minimal NGT output no ileostomy output yet urine output is low, creatinine up to 1.41 Plan: Continue pain management with IV Dilaudid prn continue NGT to LIS Continue елена drain continue IV Zosyn, adding caspofungin Continue Mondragon catheter Scds and incentive spirometry consult hospitalist for comanagement since likely soon to be downgraded from ICU will consult wound care to help with ostomy care in next 1-2 days dressing change as needed IV protonix okay for ice chips appreciate ICU management repeat am labs Discussed with Dr. Alicea who agrees with above Admission and Anticipated Discharge Date Admission Date: June 28, 2023 Subjective having pain mostly at midline incision no chest pain or shortness of breath Discussed with ICU nurse, urine output has been pretty low, giving 500 cc bolus of fluids now and changing pain meds to IV dilaudid at lower dose as Morphine making patient pretty drowsy. Minimal NGT output. Drain serous. Physical Exam Constitutional: + ill appearing, + thin, + cachectic, cooperative and + lethargic; no acute distress, + uncomfortable and not combative Respiratory: normal respiratory effort; no respiratory distress Gastrointestinal (Abdomen): Inspection/Auscultation: abdomen normal to inspection, + abdominal surgical drain present (serous) and + hypoactive bowel sounds; abdomen not distended and + abnormal bowel sounds Percussion/Palpation: + abdomen tender (generalized and at midline incision) and abdomen soft; no guarding, abdomen not rigid and abdomen not firm Skin: no rashes, warm and dry Psychiatric: Orientation: alert Results & Data Vital Signs (Past 12 Hours) Vital Signs Temp Pulse Resp BP Pulse Ox O2 Del Method 06/29/23 15:00 110 H 23 114/69 96 Room Air 06/29/23 14:31 115 H 24 116/71 94 Room Air 06/29/23 14:00 115 H 24 108/78 93 Room Air 06/29/23 13:30 113 H 20 100/68 93 Room Air 06/29/23 13:00 114 H 22 110/72 93 Room Air 06/29/23 12:30 115 H 23 101/71 92 Room Air 06/29/23 12:00 119 H 22 116/74 93 Room Air 06/29/23 11:30 114 H 22 102/67 94 Room Air 06/29/23 11:00 118 H 22 105/68 93 Room Air 06/29/23 12:00 36.5 C 06/29/23 10:30 122 H 24 107/69 94 Room Air 06/29/23 10:00 122 H 15 113/64 94 Room Air 06/29/23 09:30 119 H 21 99/68 L 93 Room Air 06/29/23 09:00 118 H 20 107/62 95 Room Air 06/29/23 08:30 116 H 21 100/67 93 Room Air 06/29/23 08:00 113 H 21 105/69 92 Room Air 06/29/23 08:00 Room Air 06/29/23 07:45 112 H 27 H 106/70 92 Room Air 06/29/23 07:30 102 H 23 109/62 92 Room Air 06/29/23 07:15 110 H 23 113/76 92 Room Air 06/29/23 07:00 108 H 25 H 112/74 93 Room Air 06/29/23 07:00 36.5 C 06/29/23 06:00 107 H 20 111/68 94 Room Air 06/29/23 05:45 106 H 23 94/79 L 93 Room Air 06/29/23 05:15 106 H 16 105/62 95 06/29/23 05:37 36.7 C 06/29/23 05:00 105 H 16 106/68 95 06/29/23 04:30 114 H 24 109/72 94 Laboratory Results 06/29/23 06/29/23 06/29/23 Range/Units 15:48 11:36 11:35 WBC (4.8-10.8) K/ul RBC (4.70-6.10) M/uL Hgb (14.0-18.0) g/dl Hct (42.0-52.0) % MCV (80.0-100.0) fL MCH (25.0-34.0) pg MCHC (32.0-36.0) g/dL RDW Std Deviation (36.4-46.3) fL RDW Coeff of Ashley (11.5-14.5) % Plt Count (130-400) K/uL MPV (9.4-12.4) fL Immature Gran % (Auto) % Neut % (Auto) % Lymph % (Auto) % [place] % (Auto) % Eos % (Auto) % Baso % (Auto) % Neut # (Auto) (1.40-6.50) K/uL Lymph # (Auto) (1.20-3.40) K/uL [place] # (Auto) (0.11-0.59) K/uL Eos # (Auto) (0.00-0.50) K/uL Baso # (Auto) (0.00-0.20) K/uL Immature Gran # (Auto) (0.01-0.20) K/uL Sodium Pending (136-145) mmol/L Potassium Pending (3.5-5.1) mmol/L Chloride Pending (98-107) mmol/L Carbon Dioxide Pending (21-32) mmol/L Anion Gap Pending (3-11) BUN Pending (6-23) mg/dl Creatinine Pending (0.6-1.4) mg/dl Est Cr Clr Drug Dosing Pending ml/min Est GFR ( Amer) Pending ml/min Est GFR (Non-Af Amer) Pending ml/min BUN/Creatinine Ratio Pending (10-20) Glucose Pending (70-99(Fasting)) mg/dl POC Glucose 72 (70-99) mg/dl Lactate 2.6 H* (0.4-2.0) mmol/L Calcium Pending (8.6-10.3) mg/dl Ionized Calcium (1.12-1.32) mmol/L Phosphorus (2.5-4.9) mg/dl Magnesium (1.7-2.4) mg/dl Iron (35-175) mcg/dl TIBC (250-450) mcg/dl Unsaturated IBC (155-355) mcg/dl Transferrin % Sat (20-50) % Ferritin (8-388) ng/ml Vitamin B12 (180-914) pg/ml Folate (>5.38) ng/ml Nasal Screen MRSA (PCR) (Negative) 06/29/23 06/29/2306/29/23 Range/Units 09:41 04:05 04:05 WBC (4.8-10.8) K/ul RBC (4.70-6.10) M/uL Hgb (14.0-18.0) g/dl Hct (42.0-52.0) % MCV (80.0-100.0) fL MCH (25.0-34.0) pg MCHC (32.0-36.0) g/dL RDW Std Deviation (36.4-46.3) fL RDW Coeff of Ashley (11.5-14.5) % Plt Count (130-400) K/uL MPV (9.4-12.4) fL Immature Gran % (Auto) % Neut % (Auto) % Lymph % (Auto) % [place] % (Auto) % Eos % (Auto) % Baso % (Auto) % Neut # (Auto) (1.40-6.50) K/uL Lymph # (Auto) (1.20-3.40) K/uL [place] # (Auto) (0.11-0.59) K/uL Eos # (Auto) (0.00-0.50) K/uL Baso # (Auto) (0.00-0.20) K/uL Immature Gran # (Auto) (0.01-0.20) K/uL Sodium 138 (136-145) mmol/L Potassium 4.5 (3.5-5.1) mmol/L Chloride 102 (98-107) mmol/L Carbon Dioxide 25 (21-32) mmol/L Anion Gap 11 (3-11) BUN 35 H (6-23) mg/dl Creatinine 1.41 H D (0.6-1.4) mg/dl Est Cr Clr Drug Dosing 49.4 ml/min Est GFR ( Amer) 65.0 ml/min Est GFR (Non-Af Amer) 56.1 ml/min BUN/Creatinine Ratio 24.8 H (10-20) Glucose 86 (70-99(Fasting)) mg/dl POC Glucose (70-99) mg/dl Lactate 2.5 H* (0.4-2.0) mmol/L Calcium 7.2 L (8.6-10.3) mg/dl Ionized Calcium (1.12-1.32) mmol/L Phosphorus 5.0 H (2.5-4.9) mg/dl Magnesium 2.0 (1.7-2.4) mg/dl Iron < 10 L (35-175) mcg/dl TIBC (250-450) mcg/dl Unsaturated IBC (155-355) mcg/dl Transferrin % Sat (20-50) % Ferritin 565.7 H (8-388) ng/ml Vitamin B12 > 1500 H (180-914) pg/ml Folate 13.72 (>5.38) ng/ml Nasal Screen MRSA (PCR) (Negative) 06/29/23 06/28/23 06/28/23 Range/Units 04:05 22:55 22:01 WBC 12.40 H (4.8-10.8) K/ul RBC 3.75 L (4.70-6.10) M/uL Hgb 10.8 L (14.0-18.0) g/dl Hct 33.8 L (42.0-52.0) % MCV 90.1 (80.0-100.0) fL MCH 28.8 (25.0-34.0) pg MCHC 32.0 (32.0-36.0) g/dL RDW Std Deviation 45.2 (36.4-46.3) fL RDW Coeff of Ashley 13.8 (11.5-14.5) % Plt Count 345 (130-400) K/uL MPV 9.6 (9.4-12.4) fL Immature Gran % (Auto) 1.0 % Neut % (Auto) 91.6 % Lymph % (Auto) 6.2 % [place] % (Auto) 1.1 % Eos % (Auto) 0.0 % Baso % (Auto) 0.1 % Neut # (Auto) 11.35 H (1.40-6.50) K/uL Lymph # (Auto) 0.77 L (1.20-3.40) K/uL [place] # (Auto) 0.14 (0.11-0.59) K/uL Eos # (Auto) 0.00 (0.00-0.50) K/uL Baso # (Auto) 0.01 (0.00-0.20) K/uL Immature Gran # (Auto) 0.13 (0.01-0.20) K/uL Sodium (136-145) mmol/L Potassium (3.5-5.1) mmol/L Chloride (98-107) mmol/L Carbon Dioxide (21-32) mmol/L Anion Gap (3-11) BUN (6-23) mg/dl Creatinine (0.6-1.4) mg/dl Est Cr Clr Drug Dosing ml/min Est GFR ( Amer) ml/min Est GFR (Non-Af Amer) ml/min BUN/Creatinine Ratio (10-20) Glucose (70-99(Fasting)) mg/dl POC Glucose 117 H (70-99) mg/dl Lactate 2.2 H* (0.4-2.0) mmol/L Calcium (8.6-10.3) mg/dl Ionized Calcium (1.12-1.32) mmol/L Phosphorus (2.5-4.9) mg/dl Magnesium (1.7-2.4) mg/dl Iron (35-175) mcg/dl TIBC (250-450) mcg/dl Unsaturated IBC (155-355) mcg/dl Transferrin % Sat (20-50) % Ferritin (8-388) ng/ml Vitamin B12 (180-914) pg/ml Folate (>5.38) ng/ml Nasal Screen MRSA (PCR) (Negative) 06/28/23 06/28/23 06/28/23 Range/Units 20:55 20:55 20:55 WBC (4.8-10.8) K/ul RBC (4.70-6.10) M/uL Hgb (14.0-18.0) g/dl Hct (42.0-52.0) % MCV (80.0-100.0) fL MCH (25.0-34.0) pg MCHC (32.0-36.0) g/dL RDW Std Deviation (36.4-46.3) fL RDW Coeff of Ashley (11.5-14.5) % Plt Count (130-400) K/uL MPV (9.4-12.4) fL Immature Gran % (Auto) % Neut % (Auto) % Lymph % (Auto) % [place] % (Auto) % Eos % (Auto) % Baso % (Auto) % Neut # (Auto) (1.40-6.50) K/uL Lymph # (Auto) (1.20-3.40) K/uL [place] # (Auto) (0.11-0.59) K/uL Eos # (Auto) (0.00-0.50) K/uL Baso # (Auto) (0.00-0.20) K/uL Immature Gran # (Auto) (0.01-0.20) K/uL Sodium 135 L (136-145) mmol/L Potassium 4.2 (3.5-5.1) mmol/L Chloride 102 (98-107) mmol/L Carbon Dioxide 22 (21-32) mmol/L Anion Gap 11 (3-11) BUN 32 H (6-23) mg/dl Creatinine 0.94 (0.6-1.4) mg/dl Est Cr Clr Drug Dosing 71.5 ml/min Est GFR ( Amer) 106.1 ml/min Est GFR (Non-Af Amer) 91.6 ml/min BUN/Creatinine Ratio 34.0 H (10-20) Glucose 108 H (70-99(Fasting)) mg/dl POC Glucose (70-99) mg/dl Lactate 2.5 H* (0.4-2.0) mmol/L Calcium 7.3 L (8.6-10.3) mg/dl Ionized Calcium 0.99 L (1.12-1.32) mmol/L Phosphorus 5.2 H (2.5-4.9) mg/dl Magnesium 2.1 (1.7-2.4) mg/dl Iron 15 L (35-175) mcg/dl TIBC 77 L (250-450) mcg/dl Unsaturated IBC 62 L (155-355) mcg/dl Transferrin % Sat 19 L (20-50) % Ferritin (8-388) ng/ml Vitamin B12 (180-914) pg/ml Folate (>5.38) ng/ml Nasal Screen MRSA (PCR) (Negative) 06/28/23 06/28/23 Range/Units 20:06 18:30 WBC (4.8-10.8) K/ul RBC (4.70-6.10) M/uL Hgb (14.0-18.0) g/dl Hct (42.0-52.0) % MCV (80.0-100.0) fL MCH (25.0-34.0) pg MCHC (32.0-36.0) g/dL RDW Std Deviation (36.4-46.3) fL RDW Coeff of Ashley (11.5-14.5) % Plt Count (130-400) K/uL MPV (9.4-12.4) fL Immature Gran % (Auto) % Neut % (Auto) % Lymph % (Auto) % [place] % (Auto) % Eos % (Auto) % Baso % (Auto) % Neut # (Auto) (1.40-6.50) K/uL Lymph # (Auto) (1.20-3.40) K/uL [place] # (Auto) (0.11-0.59) K/uL Eos # (Auto) (0.00-0.50) K/uL Baso # (Auto) (0.00-0.20) K/uL Immature Gran # (Auto) (0.01-0.20) K/uL Sodium (136-145) mmol/L Potassium (3.5-5.1) mmol/L Chloride (98-107) mmol/L Carbon Dioxide (21-32) mmol/L Anion Gap (3-11) BUN (6-23) mg/dl Creatinine (0.6-1.4) mg/dl Est Cr Clr Drug Dosing ml/min Est GFR ( Amer) ml/min Est GFR (Non-Af Amer) ml/min BUN/Creatinine Ratio (10-20) Glucose (70-99(Fasting)) mg/dl POC Glucose (70-99) mg/dl Lactate 2.4 H* (0.4-2.0) mmol/L Calcium (8.6-10.3) mg/dl Ionized Calcium (1.12-1.32) mmol/L Phosphorus (2.5-4.9) mg/dl Magnesium (1.7-2.4) mg/dl Iron (35-175) mcg/dl TIBC (250-450) mcg/dl Unsaturated IBC (155-355) mcg/dl Transferrin % Sat (20-50) % Ferritin (8-388) ng/ml Vitamin B12 (180-914) pg/ml Folate (>5.38) ng/ml Nasal Screen MRSA (PCR) Negative (Negative)
--- NOTE | 2023-06-29 16:08 | Nephrology Consultation ---
Date of Consultation June 29, 2023 Assessment & Plan (1) Acute kidney injury: (2) SIRS with acute organ dysfunction due to infectious process: (3) Contrast-induced nephropathy: Plan DERIK is due to combination sepsis (SBP 70-80 mmHg at time of presentation), IV contrast for CT scan. Although patient is oliguric, his urine sediment is negative for granular casts. Clinically he appears volume contracted. Electrolyte balance remains acceptable. Abdomen is not distended and there is no ascitic fluid to my exam to suggest abdominal compartment syndrome. Agree w/ gentle hydration, stress dose steroids and empiric antibiotic therapy. Management at this time is primarily supportive. No acute indication for [employer]ER. Will order PRP, urinalysis w/ microscopy and reassess in am History of Present Illness Reason for Consultation: DERIK Attending Physician: Yaya Alicea MD History of Present Illness Mr. Deleon is a 53 year old white male who is seen at the request of Dr. Remy for evaluation of DERIK. Information for the history is obtained from review of the EMR. Patient is a nursing home inmate who is extremely TORRES MARTINEZ and cannot provide details of his medical care. HPI is summarized as follows: Mr. Deleon has no prior h/o CKD. His baseline Cr is 0.7-0.9. He had no prior medical illnesses but was a regular smoker. Mr. Deleon was admitted to [facility] 06/09/23- 06/23/23 for evaluation of abdominal pain and diarrhea. Imaging revealed pancolitis. Colonoscopy 06/15/23 revealed severe colitis. IV Solumedrol was provided and patient was discharged on Prednisone 40 mg daily. Mr. Deleon returned to the hospital 06/28/23 for evaluation of worsening abdominal pain. He was noted to have toxic megacolon with evidence of pneumoperitoneum. Emergency colectomy w/ ileostomy was performed. Patient was noted to have severe colitis with several areas of perforation. Mr. Deleon was subsequently admitted to the ICU. Cr has risen from 0.9 to 1.4. UO has only been 300 cc last 24 hours. He is not requiring pressor support. SBP 114/69. Stress dose steroids have been started and patient is receiving periodic boluses of IV LR. Allergies Allergy/AdvReac Type Severity Reaction Status Date / Time No Known Allergies Allergy Verified 06/14/23 10:21 Home Medications Medication Instructions Recorded Confirmed Type mesalamine 4 gram/60 mL enema 4 g (60 mL) IN HS 1 month #1,800 mL 06/22/23 06/28/23 Rx mesalamine 800 mg tablet,delayed 1,600 mg PO TID 1 month #180 tabs 06/22/23 06/28/23 Rx release prednisone 20 mg tablet 40 mg PO DAILY 1 month #60 tabs 06/22/23 06/28/23 Rx Patient History Medical History Abnormal colonoscopy Encounter for pre-operative examination Hard of hearing Ileostomy in place Ulcerative colitis Surgical History S/P colon resection Social History Smoking Status: Unknown if ever smoked Tobacco Type: Cigarettes Hx Alcohol Use: No Hx Substance Use: No Preferred Language: Austrian Communication Ability: Effective 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 Beliefs That Will Affect Care: None Current Living Situation: Other Current Living Situation Comment: [facility] Feels Safe at Home: Yes Assistive Devices: Hearing Aid - Left and Hearing Aid - Right Review of Systems Review of Systems: Other (unobtainable - extremely TORRES MARTINEZ) Physical Exam Constitutional: + ill appearing; not in distress Eyes: PERRL, conjunctivae normal, anicteric sclerae ENMT: external ear and nose normal, oropharynx normal Neck: trachea midline, no thyromegaly Respiratory: normal respiratory effort, lungs clear to auscultation Cardiovascular: Rate/Rhythm: regular rhythm and + tachycardic Extremities: no edema Gastrointestinal (Abdomen): clean dressing, surgical drain in place, abdomen is soft, no bowel sounds Neurologic: awake Results & Data Vital Signs (Past 12 Hours) Vital Signs Temp Pulse Resp BP Pulse Ox O2 Del Method 06/29/23 15:00 110 H 23 114/69 96 Room Air 06/29/23 14:31 115 H 24 116/71 94 Room Air 06/29/23 14:00 115 H 24 108/78 93 Room Air 06/29/23 13:30 113 H 20 100/68 93 Room Air 06/29/23 13:00 114 H 22 110/72 93 Room Air 06/29/23 12:30 115 H 23 101/71 92 Room Air 06/29/23 12:00 119 H 22 116/74 93 Room Air 06/29/23 11:30 114 H 22 102/67 94 Room Air 06/29/23 11:00 118 H 22 105/68 93 Room Air 06/29/23 12:00 36.5 C 06/29/23 10:30 122 H 24 107/69 94 Room Air 06/29/23 10:00 122 H 15 113/64 94 Room Air 06/29/23 09:30 119 H 21 99/68 L 93 Room Air 06/29/23 09:00 118 H 20 107/62 95 Room Air 06/29/23 08:30 116 H 21 100/67 93 Room Air 06/29/23 08:00 113 H 21 105/69 92 Room Air 06/29/23 08:00 Room Air 06/29/23 07:45 112 H 27 H 106/70 92 Room Air 06/29/23 07:30 102 H 23 109/62 92 Room Air 06/29/23 07:15 110 H 23 113/76 92 Room Air 06/29/23 07:00 108 H 25 H 112/74 93 Room Air 06/29/23 07:00 36.5 C 06/29/23 06:00 107 H 20 111/68 94 Room Air 06/29/23 05:45 106 H 23 94/79 L 93 Room Air 06/29/23 05:15 106 H 16 105/62 95 06/29/23 05:37 36.7 C 06/29/23 05:00 105 H 16 106/68 95 06/29/23 04:30 114 H 24 109/72 94 06/29/23 04:00 118 H 28 H 104/74 95 06/29/23 03:47 119 H 24 80/69 L 95 06/29/23 03:46 120 H 29 H 74/59 L 95 Laboratory Results Laboratory Results WBC 12.40 K/ul (4.8-10.8) H 06/29/23 04:05 RBC 3.75 M/uL (4.70-6.10) L 06/29/23 04:05 Hgb 10.8 g/dl (14.0-18.0) L 06/29/23 04:05 Hct 33.8 % (42.0-52.0) L 06/29/23 04:05 MCV 90.1 fL (80.0-100.0) 06/29/23 04:05 MCH 28.8 pg (25.0-34.0) 06/29/23 04:05 MCHC 32.0 g/dL (32.0-36.0) 06/29/23 04:05 RDW Std Deviation 45.2 fL (36.4-46.3) 06/29/23 04:05 RDW Coeff of Ashley 13.8 % (11.5-14.5) 06/29/23 04:05 Plt Count 345 K/uL (130-400) 06/29/23 04:05 MPV 9.6 fL (9.4-12.4) 06/29/23 04:05 Immature Gran % (Auto) 1.0 % 06/29/23 04:05 Neut % (Auto) 91.6 % 06/29/23 04:05 Lymph % (Auto) 6.2 % 06/29/23 04:05 [place] % (Auto) 1.1 % 06/29/23 04:05 Eos % (Auto) 0.0 % 06/29/23 04:05 Baso % (Auto) 0.1 % 06/29/23 04:05 Neut # (Auto) 11.35 K/uL (1.40-6.50) H 06/29/23 04:05 Lymph # (Auto) 0.77 K/uL (1.20-3.40) L 06/29/23 04:05 [place] # (Auto) 0.14 K/uL (0.11-0.59) 06/29/23 04:05 Eos # (Auto) 0.00 K/uL (0.00-0.50) 06/29/23 04:05 Baso # (Auto) 0.01 K/uL (0.00-0.20) 06/29/23 04:05 Immature Gran # (Auto) 0.13 K/uL (0.01-0.20) 06/29/23 04:05 Toxic Vacuolation 1+ 06/28/23 10:16 Polychromasia 1+ 06/28/23 10:16 Echinocytes 1+ 06/28/23 10:16 Sodium 138 mmol/L (136-145) 06/29/23 04:05 Potassium 4.5 mmol/L (3.5-5.1) 06/29/23 04:05 Chloride 102 mmol/L (98-107) 06/29/23 04:05 Carbon Dioxide 25 mmol/L (21-32) 06/29/23 04:05 Anion Gap 11 (3-11) 06/29/23 04:05 BUN 35 mg/dl (6-23) H 06/29/23 04:05 Creatinine 1.41 mg/dl (0.6-1.4) H D 06/29/23 04:05 Est Cr Clr Drug Dosing 49.4 ml/min 06/29/23 04:05 Est GFR ( Amer) 65.0 ml/min 06/29/23 04:05 Est GFR (Non-Af Amer) 56.1 ml/min 06/29/23 04:05 BUN/Creatinine Ratio 24.8 (10-20) H 06/29/23 04:05 Glucose 86 mg/dl (70-99(Fasting)) 06/29/23 04:05 POC Glucose 72 mg/dl (70-99) 06/29/23 11:35 Lactate 2.6 mmol/L (0.4-2.0) H* 06/29/23 11:36 Calcium 7.2 mg/dl (8.6-10.3) L 06/29/23 04:05 Ionized Calcium 0.99 mmol/L (1.12-1.32) L 06/28/23 20:55 Phosphorus 5.0 mg/dl (2.5-4.9) H 06/29/23 04:05 Magnesium 2.0 mg/dl (1.7-2.4) 06/29/23 04:05 Iron < 10 mcg/dl (35-175) L 06/29/23 04:05 TIBC 77 mcg/dl (250-450) L 06/28/23 20:55 Unsaturated IBC 62 mcg/dl (155-355) L 06/28/23 20:55 Transferrin % Sat 19 % (20-50) L 06/28/23 20:55 Ferritin 565.7 ng/ml (8-388) H 06/29/23 04:05 Total Bilirubin 1.1 mg/dl (0.2-1.0) H 06/28/23 10:16 AST 35 U/L (13-39) 06/28/23 10:16 ALT 28 U/L (7-52) 06/28/23 10:16 Alkaline Phosphatase 113 U/L (34-104) H 06/28/23 10:16 Total Protein 5.6 gm/dl (6.0-8.3) L 06/28/23 10:16 Albumin 2.2 gm/dl (3.4-5.0) L 06/28/23 10:16 Globulin 3.4 gm/dl (2.5-4.0) 06/28/23 10:16 Albumin/Globulin Ratio 0.6 (0.9-2) L 06/28/23 10:16 Lipase 5 U/L (11-82) L 06/28/23 10:16 Vitamin B12 > 1500 pg/ml (180-914) H 06/29/23 04:05 Folate 13.72 ng/ml (>5.38) 06/29/23 04:05 Urine Color [place] 06/28/23 10:16 Urine Appearance Clear (Clear) 06/28/23 10:16 Urine pH 5.5 (4.5-7.5) 06/28/23 10:16 Ur Specific [place] 1.039 (1.000-1.030) H 06/28/23 10:16 Urine Protein 1+ (Negative) H 06/28/23 10:16 Urine Glucose (UA) Negative (Negative) 06/28/23 10:16 Urine Ketones 1+ (Negative) H 06/28/23 10:16 Urine Blood Negative (Negative) 06/28/23 10:16 Urine Nitrite Positive (Negative) A 06/28/23 10:16 Urine Bilirubin 2+ (Negative) H 06/28/23 10:16 Urine Urobilinogen Negative (Negative) 06/28/23 10:16 Ur Leukocyte Esterase Trace (Negative) H 06/28/23 10:16 Urine WBC (Auto) 1-5 /hpf (0-5) 06/28/23 10:16 Urine RBC (Auto) 0-4 /hpf (0-4) 06/28/23 10:16 U Hyaline Cast (Auto) 5-10 /lpf (0-5) H 06/28/23 10:16 U Epithel Cells (Auto) >30 /lpf (0-5) H 06/28/23 10:16 Urine Bacteria (Auto) Negative (Negative) 06/28/23 10:16 Ur Renal Epithelial Cell 0-5 /lpf (0-5) 06/28/23 10:16 Urine Mucus Present (None Prsent) A 06/28/23 10:16 Nasal Screen MRSA (PCR) Negative (Negative) 06/28/23 20:06 Impressions Abdomen/Pelvis CT 06/28/23 11:12 CT OF THE ABDOMEN AND PELVIS WITH CONTRAST CLINICAL HISTORY: Left lower quadrant pain. COMPARISON STUDY: CT of the abdomen and pelvis June 09, 2023. TECHNIQUE: Following IV administration of 90 mL of Optiray, axial images of the abdomen and pelvis were obtained from the lung bases to the proximal femurs. Images were reviewed in the axial, sagittal, and coronal planes. IV contrast was administered without complication. Automated exposure control was utilized for the study. A dose lowering technique was utilized adhering to the principles of ALARA. CT DOSE: 454.17 mGy.cm FINDINGS: Note is made of a 1.3 cm subpleural left lower lobe nodule with adjacent ground glass opacity. This was not evident on CT of June 09, 2023. There has been interval development of moderate pneumoperitoneum. Hepatic steatosis is noted. Spleen, adrenal glands, kidneys and pancreas are unremarkable. There is no biliary or pancreatic ductal dilatation. Note is again made of wall thickening involving the entire colon with pericolonic stranding. Irregularity of the wall of the transverse colon is noted. The transverse colon is dilated, measuring 5.9 cm in caliber. Note is made of multiple gas and fluid containing collections within the abdomen and pelvis. The largest is within the right hemipelvis, measuring 11.2 x 5.2 cm. A central pelvic collection to indicate with the larger collection measures 7.5 x 6.5 cm. A central mesenteric gas and fluid containing collection measures 4.8 x 3.9 cm. The appendix is normal. Is no evidence for a bowel obstruction. Smaller pockets of fluid within the abdomen and pelvis are present. Major vasculature is grossly patent. IMPRESSION: 1. Interval development of moderate pneumoperitoneum since CT of June 09, 2023 consistent with perforation of a hollow viscus. The primary consideration for the source of pneumoperitoneum is the transverse colon. The findings suggest pancolitis with interval development of possible toxic megacolon. Multiple gas and fluid containing collections within the abdomen and pelvis suspicious for developing abscesses. Surgical consultation is recommended. Findings discussed with Dr. Francois at time of dictation. 2. 1.3 cm subpleural left lower lobe nodule with mild adjacent groundglass opacity which is new since prior CT. This is probably infectious however a follow-up chest CT in 3 months to ensure resolution is recommended. ACT 112: Negative or not required by law. Electronically signed by: Andres Amanda M.D. 06/28/2023 12:36 PM PG Care Time/CCT Total # of Minutes Spent Total Time Spent with Patient: Total time spent is greater than 50% in coordination of care (as documented) at patient's floor/unit and/or counseling patient: Coding Level of Care Code 20568 IN/OBS CONSULT LVL 5,80M Diagnoses Acute kidney injury N17.9 SIRS with acute organ dysfunction due to infectious process A41.9; R65.20 Contrast-induced nephropathy N14.11; T50.8X5A
[2023-06-29 16:20] LABS: BUN Creatinine Ratio 21.5 (10-20); Creatinine Clr Calc Pharmacy 38.9 ml/min; Est GFR (African American) 49.4 ml/min; Est GFR (Non-African American) 42.6 ml/min; Potassium 4.7 mmol/L (3.5-5.1)
[2023-06-30] MEDS ORDERED: DEXTROSE 50% 50 ML SYRINGE IV ONE (00:07)
[2023-06-30] MEDS ORDERED: CARBOHYDRATES FOR HYPOGLYCEMIA PO PRN (00:09)
[2023-06-30] MEDS ORDERED: GLUCOSE 10 TAB/TUBE PO PRN (00:09)
[2023-06-30] MEDS ORDERED: DEXTROSE 50% 50 ML SYRINGE IV PRN (00:09)
[2023-06-30] MEDS ORDERED: GLUCAGON FOR INJ 1 MG VIAL SQ PRN (00:09)
[2023-06-30] MEDS ORDERED: GLUCOSE 40% GEL 15 GM TUBE PO PRN (00:09)
[2023-06-30] MEDS: D5W AND LACTATED RINGERS 1,000 ML IV SCH ×4 (00:30→23:38)
[2023-06-30] MEDS: PIPERACILLIN/TAZOBACTAM 4.5 GM in DEXTROSE 5% MINI-B 100 ML IV SCH ×3 (03:59→19:31)
[2023-06-30 04:27] LABS: Hematocrit (blood only) 27.6 % (42.0-52.0); Mean Corpuscular Hemoglobin 29.2 pg (25.0-34.0); Mean Corpuscular Hgb Conc 32.6 g/dL (32.0-36.0); Mean Corpuscular Volume 89.6 fL (80.0-100.0); Mean Platelet Volume 10.3 fL (9.4-12.4); Platelet Count 185 K/uL (130-400); RDW Coefficient of Variation 14.3 % (11.5-14.5); RDW Standard Deviation 46.3 fL (36.4-46.3); Red Blood Count 3.08 M/uL (4.70-6.10); White Blood Count 27.42 K/ul (4.8-10.8)
[2023-06-30 04:46] LABS: Magnesium 1.9 mg/dl (1.7-2.4); Potassium 4.7 mmol/L (3.5-5.1)
[2023-06-30 04:50] LABS: Creatinine Clr Calc Pharmacy 36.1 ml/min; Est GFR (Non-African American) 38.9 ml/min; Phosphorus 5.3 mg/dl (2.5-4.9)
[2023-06-30 05:10] LABS: Basophils # (auto) 0.16 K/uL (0.00-0.20); Basophils % (auto) 0.6 %; Echinocytes 2+; Immature Granulocytes # (auto) 1.02 K/uL (0.01-0.20); Immature Granulocytes % (auto) 3.8 %; Lymphocytes # (auto) 0.84 K/uL (1.20-3.40); Lymphocytes % (auto) 3.1 %; Monocytes # (auto) 0.52 K/uL (0.11-0.59); Monocytes % (auto) 1.9 %; Neutrophils % (auto) 90.6 %; Polychromasia 1+
[2023-06-30] MEDS: ICU ELECTROLYTE REPLACEMENT PROTOCOL SCH (05:47)
[2023-06-30] MEDS: MAGNESIUM SULFATE / D5W 1 GM/100 ML BAG IV SCH ×2 (06:07→07:43)
--- NOTE | 2023-06-30 07:04 | Surgery Progress Note ---
Date of Service June 30, 2023 Assessment & Plan (1) Ulcerative colitis: (2) Pancolitis: (3) Perforated abdominal viscus: (4) SIRS with acute organ dysfunction due to infectious process: Plan POD # 2 s/p ex lap , subtotal colectomy and ileostomy formation afebrile, vss postop pain moderate but controlled minimal NGT output minimalileostomy output urine output is low, creatinine up to 1.77 Plan: Continue pain management with IV Dilaudid prn continue NGT to LIS Continue елена drain continue IV Zosyn, adding caspofungin Continue Mondragon catheter Scds and incentive spirometry consult hospitalist for comanagement since likely soon to be downgraded from ICU will consult wound care to help with ostomy care in next 1-2 days dressing change as needed IV protonix okay for ice chips appreciate ICU management repeat am labs Admission and Anticipated Discharge Date Admission Date: June 28, 2023 Subjective Resting comfortably in bed. Does not have much pain. No nausea or vomiting. NG tube in place. Minimal output in the ileostomy bag. Urine output slightly increased from yesterday. Physical Exam Gastrointestinal (Abdomen): Inspection/Auscultation: abdomen normal to inspection, + abdominal surgical drain present (serous) and + hypoactive bowel sounds; abdomen not distended Percussion/Palpation: + abdomen tender (generalized and at midline incision); no guarding, abdomen not rigid and abdomen not firm Results & Data Vital Signs (Past 12 Hours) Vital Signs Temp Pulse Resp BP Pulse Ox O2 Del Method O2 Flow Rate 06/30/23 00:00 36.9 C 06/30/23 04:00 36.9 C 06/30/23 06:00 99 H 16 96 06/30/23 06:00 112/70 06/30/23 05:30 136/80 06/30/23 05:30 88 14 94 06/30/23 05:00 105 H 25 H 96 06/30/23 05:00 132/78 06/30/23 04:30 130/81 06/30/23 04:30 101 H 19 96 06/30/23 04:00 104 H 17 95 06/30/23 04:00 126/82 06/30/23 03:30 125/79 06/30/23 03:30 103 H 15 96 06/30/23 03:00 98 H 20 96 06/30/23 03:00 126/76 06/30/23 02:30 119/74 06/30/23 02:30 109 H 21 95 06/30/23 02:00 106 H 23 96 06/30/23 02:00 116/74 06/30/23 01:30 105 H 19 96 06/30/23 01:30 111/82 06/30/23 01:00 106 H 20 96 06/30/23 01:00 125/74 06/30/23 00:30 119/73 06/30/23 00:30 109 H 14 95 06/29/23 23:50 88 L Room Air 06/30/23 00:00 115 H 19 94 Nasal Cannula 2 06/30/23 00:00 141/87 H 06/29/23 23:30 111 H 23 91 06/29/23 23:30 114/70 06/29/23 23:00 111 H 18 92 06/29/23 23:00 115/77 06/29/23 22:30 111/75 06/29/23 22:30 113 H 16 91 06/29/23 22:00 115 H 17 90 06/29/23 22:00 108/71 06/29/23 21:30 115 H 21 91 06/29/23 21:30 118/77 06/29/23 21:00 117 H 21 92 06/29/23 21:00 103/73 06/29/23 20:30 117 H 24 92 06/29/23 20:30 121/73 06/30/23 00:26 107 H 06/29/23 20:16 36.9 C 06/29/23 20:00 117 H 19 92 06/29/23 20:00 113/68 06/29/23 19:30 111/75 06/29/23 19:30 120 H 15 93 Laboratory Results 06/30/23 06/30/23 06/30/23 Range/Units 04:07 04:07 00:27 WBC 27.42 H (4.8-10.8) K/ul RBC 3.08 L (4.70-6.10) M/uL Hgb 9.0 L (14.0-18.0) g/dl Hct 27.6 L (42.0-52.0) % MCV 89.6 (80.0-100.0) fL MCH 29.2 (25.0-34.0) pg MCHC 32.6 (32.0-36.0) g/dL RDW Std Deviation 46.3 (36.4-46.3) fL RDW Coeff of Ashley 14.3 (11.5-14.5) % Plt Count 185 (130-400) K/uL MPV 10.3 (9.4-12.4) fL Immature Gran % (Auto) 3.8 % Neut % (Auto) 90.6 % Lymph % (Auto) 3.1 % Leake % (Auto) 1.9 % Eos % (Auto) 0.0 % Baso % (Auto) 0.6 % Neut # (Auto) 24.50 H (1.40-6.50) K/uL Lymph # (Auto) 0.84 L (1.20-3.40) K/uL Leake # (Auto) 0.52 (0.11-0.59) K/uL Eos # (Auto) 0.00 (0.00-0.50) K/uL Baso # (Auto) 0.16 (0.00-0.20) K/uL Immature Gran # (Auto) 1.02 H (0.01-0.20) K/uL Polychromasia 1+ Echinocytes 2+ Sodium 136 (136-145) mmol/L Potassium 4.7 (3.5-5.1) mmol/L Chloride 104 (98-107) mmol/L Carbon Dioxide 24 (21-32) mmol/L Anion Gap 8 (3-11) BUN 42 H (6-23) mg/dl Creatinine 1.91 H (0.6-1.4) mg/dl Est Cr Clr Drug Dosing 36.1 ml/min Est GFR ( Amer) 45.0 ml/min Est GFR (Non-Af Amer) 38.9 ml/min BUN/Creatinine Ratio 22.0 H (10-20) Glucose 154 H (70-99(Fasting)) mg/dl POC Glucose 142 H (70-99) mg/dl Lactate (0.4-2.0) mmol/L Calcium 7.0 L (8.6-10.3) mg/dl Phosphorus 5.3 H (2.5-4.9) mg/dl Magnesium 1.9 (1.7-2.4) mg/dl 06/30/23 06/29/23 06/29/23 Range/Units 00:01 15:48 11:36 WBC (4.8-10.8) K/ul RBC (4.70-6.10) M/uL Hgb (14.0-18.0) g/dl Hct (42.0-52.0) % MCV (80.0-100.0) fL MCH (25.0-34.0) pg MCHC (32.0-36.0) g/dL RDW Std Deviation (36.4-46.3) fL RDW Coeff of Ashley (11.5-14.5) % Plt Count (130-400) K/uL MPV (9.4-12.4) fL Immature Gran % (Auto) % Neut % (Auto) % Lymph % (Auto) % [place]ake % (Auto) % Eos % (Auto) % Baso % (Auto) % Neut # (Auto) (1.40-6.50) K/uL Lymph # (Auto) (1.20-3.40) K/uL Leake # (Auto) (0.11-0.59) K/uL Eos # (Auto) (0.00-0.50) K/uL Baso # (Auto) (0.00-0.20) K/uL Immature Gran # (Auto) (0.01-0.20) K/uL Polychromasia Echinocytes Sodium 137 (136-145) mmol/L Potassium 4.7 (3.5-5.1) mmol/L Chloride 102 (98-107) mmol/L Carbon Dioxide 25 (21-32) mmol/L Anion Gap 10 (3-11) BUN 38 H (6-23) mg/dl Creatinine 1.77 H D (0.6-1.4) mg/dl Est Cr Clr Drug Dosing 38.9 ml/min Est GFR ( Amer) 49.4 ml/min Est GFR (Non-Af Amer) 42.6 ml/min BUN/Creatinine Ratio 21.5 H (10-20) Glucose 80 (70-99(Fasting)) mg/dl POC Glucose 69 L* (70-99) mg/dl Lactate 2.6 H* (0.4-2.0) mmol/L Calcium 7.0 L (8.6-10.3) mg/dl Phosphorus (2.5-4.9) mg/dl Magnesium (1.7-2.4) mg/dl 06/29/23 06/29/23 Range/Units 11:35 09:41 WBC (4.8-10.8) K/ul RBC (4.70-6.10) M/uL Hgb (14.0-18.0) g/dl Hct (42.0-52.0) % MCV (80.0-100.0) fL MCH (25.0-34.0) pg MCHC (32.0-36.0) g/dL RDW Std Deviation (36.4-46.3) fL RDW Coeff of Ashley (11.5-14.5) % Plt Count (130-400) K/uL MPV (9.4-12.4) fL Immature Gran % (Auto) % Neut % (Auto) % Lymph % (Auto) % [place]ake % (Auto) % Eos % (Auto) % Baso % (Auto) % Neut # (Auto) (1.40-6.50) K/uL Lymph # (Auto) (1.20-3.40) K/uL Leake # (Auto) (0.11-0.59) K/uL Eos # (Auto) (0.00-0.50) K/uL Baso # (Auto) (0.00-0.20) K/uL Immature Gran # (Auto) (0.01-0.20) K/uL Polychromasia Echinocytes Sodium (136-145) mmol/L Potassium (3.5-5.1) mmol/L Chloride (98-107) mmol/L Carbon Dioxide (21-32) mmol/L Anion Gap (3-11) BUN (6-23) mg/dl Creatinine (0.6-1.4) mg/dl Est Cr Clr Drug Dosing ml/min Est GFR ( Amer) ml/min Est GFR (Non-Af Amer) ml/min BUN/Creatinine Ratio (10-20) Glucose (70-99(Fasting)) mg/dl POC Glucose 72 (70-99) mg/dl Lactate 2.5 H* (0.4-2.0) mmol/L Calcium (8.6-10.3) mg/dl Phosphorus (2.5-4.9) mg/dl Magnesium (1.7-2.4) mg/dl
[2023-06-30] MEDS: HYDROmorphone INJ 0.5 MG/0.5 ML SYR IV PRN ×3 (07:42→15:33)
--- NOTE | 2023-06-30 07:48 | Hospitalist Progress Note ---
Date of Service June 30, 2023 Assessment & Plan (1) Perforated abdominal viscus: Plan: pt with recent diagnosis of Ulcertive colitis, and had sessile polyp biopsied presented with free air, to OR 06/28/23 with colon resection, subtotal colectomy and ileostomy three areas of perforation were identified, abscess and feculent material seen Pt presented with sepsis from above, on stress steroids, caspofungin, zosyn Continue NGT per Primary service- remain NPO pain consent is obtained in the afternoon of 06/30 TPN is ordered likely will not start to 07/01 - DAVID drain per primary service - Consider continuing prednisone for his UC with ulceration on lip (2) Hard of hearing: (3) Acute kidney injury: Plan: continue volume replacement carefully with surgical loss and concern for ileostomy output disucssion of contrast nephropathy Plan DVT PROPHYLAXIS - SCDS - Chemoprophylaxis on hold post surgical case- initiate when hemostasis is ensur ed Admission and Anticipated Discharge Date Admission Date: June 28, 2023 Subjective patient is awake and alert he has an NG tube in his left nare. His ostomy is without liquid or gas in the bag, pain control is achieved he is comfortable he has no shortness of breath Physical Exam Constitutional: patient awake and alert answers questions appropriately card exam is regular lungs are decreased at the bases but otherwise are clear abdomen is hypoactive bowel sounds ostomy in the mid to right Results & Data Results & Data Vital Signs (Past 12 Hours) Vital Signs Temp Pulse Resp BP Pulse Ox O2 Del Method O2 Flow Rate 06/30/23 07:21 96 H 06/30/23 00:00 98.4 F 06/30/23 04:00 98.4 F 06/30/23 06:00 99 H 16 96 06/30/23 06:00 112/70 06/30/23 05:30 136/80 06/30/23 05:30 88 14 94 06/30/23 05:00 105 H 25 H 96 06/30/23 05:00 132/78 06/30/23 04:30 130/81 06/30/23 04:30 101 H 19 96 06/30/23 04:00 104 H 17 95 06/30/23 04:00 126/82 06/30/23 03:30 125/79 06/30/23 03:30 103 H 15 96 06/30/23 03:00 98 H 20 96 06/30/23 03:00 126/76 06/30/23 02:30 119/74 06/30/23 02:30 109 H 21 95 06/30/23 02:00 106 H 23 96 06/30/23 02:00 116/74 06/30/23 01:30 105 H 19 96 06/30/23 01:30 111/82 06/30/23 01:00 106 H 20 96 06/30/23 01:00 125/74 06/30/23 00:30 119/73 06/30/23 00:30 109 H 14 95 06/29/23 23:50 88 L Room Air 06/30/23 00:00 115 H 19 94 Nasal Cannula 2 06/30/23 00:00 141/87 H 06/29/23 23:30 111 H 23 91 06/29/23 23:30 114/70 06/29/23 23:00 111 H 18 92 06/29/23 23:00 115/77 06/29/23 22:30 111/75 06/29/23 22:30 113 H 16 91 06/29/23 22:00 115 H 17 90 06/29/23 22:00 108/71 06/29/23 21:30 115 H 21 91 06/29/23 21:30 118/77 06/29/23 21:00 117 H 21 92 06/29/23 21:00 103/73 06/29/23 20:30 117 H 24 92 06/29/23 20:30 121/73 06/30/23 00:26 107 H 06/29/23 20:16 98.4 F 06/29/23 20:00 117 H 19 92 06/29/23 20:00 113/68 PG Care Time/CCT Total # of Minutes Spent Total Time Spent with Patient: Total time spent is greater than 50% in coordination of care (as documented) at patient's floor/unit and/or counseling patient: Coding Level of Care Code 64032 SUB INP/OBS CARE 2/35MIN Diagnoses Perforated abdominal viscus R19.8 Hard of hearing H91.90 Acute kidney injury N17.9
[2023-06-30] MEDS: THIAMINE HCL 200 MG in SODIUM CHLORIDE 0.9% 50 ML IV SCH (08:26)
[2023-06-30] MEDS: HYDROCORTISONE SOD 50 MG in SYRINGE 0 ML IV SCH ×2 (08:26→21:24)
--- NOTE | 2023-06-30 08:53 | Nephrology Progress Note ---
Date of Service June 30, 2023 Assessment & Plan (1) Acute kidney injury: Plan: * Oliguric DERIK due to sepsis, hypotension, IV contrast administration * Creatinine was relatively stable overnight * UO ~ 250 cc last shift * Patient remains in injury phase at this time, however, expect improvement within next 48 hours. Electrolyte balance remains acceptable. 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 Deleon was evaluated in the ICU this morning. He voiced no medical concerns and appeared comfortable. hotel staff member reports patient had a hypoglycemic episode last PM and is on a dextrose gtt. Review of Systems Review of Systems: Other (Unobtainable, severely [place]) Physical Exam Constitutional: + ill appearing; not in distress Eyes: PERRL, conjunctivae normal, anicteric sclerae ENMT: external ear and nose normal, oropharynx normal Neck: trachea midline, no thyromegaly Respiratory: normal respiratory effort, lungs clear to auscultation Cardiovascular: Rate/Rhythm: regular rate and regular rhythm Extremities: + edema (1+ pretibial pitting edema) Neurologic: awake Results & Data Vital Signs (Past 12 Hours) Vital Signs Temp Pulse Resp BP Pulse Ox O2 Del Method O2 Flow Rate 06/30/23 08:30 138/90 06/30/23 08:30 99 H 20 95 06/30/23 08:00 94 H 17 93 Nasal Cannula 2 06/30/23 08:00 119/66 06/30/23 07:30 113/80 06/30/23 07:30 102 H 23 96 06/30/23 07:00 95 H 19 96 06/30/23 07:00 120/75 06/30/23 08:47 36.5 C 06/30/23 07:21 96 H 06/30/23 00:00 36.9 C 06/30/23 04:00 36.9 C 06/30/23 06:00 99 H 16 96 06/30/23 06:00 112/70 06/30/23 05:30 136/80 06/30/23 05:30 88 14 94 06/30/23 05:00 105 H 25 H 96 06/30/23 05:00 132/78 06/30/23 04:30 130/81 06/30/23 04:30 101 H 19 96 06/30/23 04:00 104 H 17 95 06/30/23 04:00 126/82 06/30/23 03:30 125/79 06/30/23 03:30 103 H 15 96 06/30/23 03:00 98 H 20 96 06/30/23 03:00 126/76 06/30/23 02:30 119/74 06/30/23 02:30 109 H 21 95 06/30/23 02:00 106 H 23 96 06/30/23 02:00 116/74 06/30/23 01:30 105 H 19 96 06/30/23 01:30 111/82 06/30/23 01:00 106 H 20 96 06/30/23 01:00 125/74 06/30/23 00:30 119/73 06/30/23 00:30 109 H 14 95 06/29/23 23:50 88 L Room Air 06/30/23 00:00 115 H 19 94 Nasal Cannula 2 06/30/23 00:00 141/87 H 06/29/23 23:30 111 H 23 91 06/29/23 23:30 114/70 06/29/23 23:00 111 H 18 92 06/29/23 23:00 115/77 06/29/23 22:30 111/75 06/29/23 22:30 113 H 16 91 06/29/23 22:00 115 H 17 90 06/29/23 22:00 108/71 06/29/23 21:30 115 H 21 91 06/29/23 21:30 118/77 06/29/23 21:00 117 H 21 92 06/29/23 21:00 103/73 06/30/23 00:26 107 H Laboratory Results Laboratory Tests 06/28/23 06/30/23 06/30/23 10:16 04:07 04:07 WBC 27.42 H Hgb 9.0 L Hct 27.6 L Plt Count 185 Sodium 136 Potassium 4.7 Chloride 104 Carbon Dioxide 24 BUN 42 H Creatinine 1.91 H Glucose 154 H Calcium 7.0 L Albumin 2.2 L PG Care Time/CCT Total # of Minutes Spent Total Time Spent with Patient: Total time spent is greater than 50% in coordination of care (as documented) at patient's floor/unit and/or counseling patient: Coding Level of Care Code 56281 SUB INP/OBS CARE 3/50MIN Diagnoses Acute kidney injury N17.9 SIRS with acute organ dysfunction due to infectious process A41.9; R65.20
--- NOTE | 2023-06-30 10:52 | Critical Care Progress Note ---
Date of Service June 30, 2023 Assessment & Plan (1) Perforated abdominal viscus: (2) Sepsis: (3) S/P colon resection: (4) Hard of hearing: (5) Pancolitis: Plan Reason Critically Ill: 49 YOM with history of Ulcerative Colitis- admitted with perforated viscous, pneumoperitoneum, pancolitis and enlarged colon- taken emergently to OR and arrives in ICU post recovery. Neuro - Acute pain secondary to surgical procedure, Metabolic Encephalopathy CAM ICU: Negative - Attempt to maintain normal sleep wake cycle - Pain control with IV Tylenol, tiered Dilaudid Cardiac - Sepsis - Tachycardia likely secondary to sepsis and volume status - follow electrolytes and replace with hx of decreased intake and n/v - peripheral edema likely secondary to low albumin state -Minimal lactate. Repeat lactic acid level. Respiratory - No acute needs - extubated on low-flow oxygen - ICS while awake GI - S/p bowel resection resulting with ileostomy, pancolitis, perforated viscous with pneumoperitoneum - post above surgery - Continue Zosysn and caspofungin - Continue NGT per Primary service- remain NPO - DAVID drain per primary service -Dietitian will reach out to general surgery eval initially starting trickle tube feeds versus TPN RENAL/LYTES -DERIK secondary to sepsis -Replaced electrolytes as needed. Creatinine continues to rise patient with severe third spacing and malnutrition. We will try to minimize fluid intake. -Continue stress dose steroids 50 mg hydrocortisone twice daily - Mondragon placed for surgery -We will likely discontinue Mondragon catheter as long as the patient is able to get out of bed and sit up. ENDO - No acute needs HEME - Leukocytosis, anemia - see below - Anemia-with worsening this morning. Out of threshold for needing transfusion. Possibly hemodilutional. We will repeat CBC. ID - Sepsis with source as abdominal - SIRS- 2 with source as abdomen- Without organ dysfunction or need for vasopressors but with elevated lactate -Continue Zosyn. - Await blood culture abdominal culture result - Maintain MAPS >65 LINES/IV ACCESS - PIV, NGT, Mondragon, DAVID drain Continue use of these lines - DVT PROPHYLAXIS - SCDS - Chemoprophylaxis on hold post surgical case- initiate when hemostasis is ensured DISPO: Can likely downgrade out of the ICU. Dispo per surgery service. Admission and Anticipated Discharge Date Admission Date: June 28, 2023 Subjective No significant acute events overnight. Patient receiving as needed Dilaudid. Urine output remains poor. Hypoglycemic overnight and started on D5. Review of Systems Review of Systems: All systems reviewed & are unremarkable except as noted in HPI & below Physical Exam Physical Exam: PHYSICAL EXAM: General: awake, alert, cachectic appearing Head: Normocephalic, atraumatic ENT: PERRLA, EOMI, mucous membranes dry, with ulceration to right lip Neuro: AAO x 1, speech clear and confused of place/time/and answers don't line up with question, strength intact bilaterally 5/5, sensation intact and equal all extremities and dermatomes, Chest: equal rise and fall of the chest, no accessory muscle use,, Clear to auscultation, on room air, Cardiac: Regular rate and rhythm, telemetry reviewed- NSR no ectopy, skin warm dry, cap refill <3 seconds, peripheral pulses +2 no JVD, no murmur, trace 1+ pitting edema to bilateral lower extremities GI: hypoactive bowel sounds, soft, tender to palpation post surgical, no rebound, ileostomy in place to RLQ, DAVID drain to LLQ draining serosang drainage, NG tube in place : Mondragon to gravity draining light neeta urine, Psych: Flat affect Results & Data Results & Data Vital Signs (Past 12 Hours) Vital Signs Temp Pulse Resp BP Pulse Ox O2 Del Method O2 Flow Rate 06/30/23 09:30 93 H 15 95 Nasal Cannula 2 06/30/23 09:00 106 H 15 93 06/30/23 09:00 131/87 06/30/23 08:30 138/90 06/30/23 08:30 99 H 20 95 06/30/23 08:00 94 H 17 93 Nasal Cannula 2 06/30/23 08:00 119/66 06/30/23 07:30 113/80 06/30/23 07:30 102 H 23 96 06/30/23 07:00 95 H 19 96 06/30/23 07:00 120/75 06/30/23 08:00 Room Air 06/30/23 08:47 36.5 C 06/30/23 07:21 96 H 06/30/23 00:00 36.9 C 06/30/23 04:00 36.9 C 06/30/23 06:00 99 H 16 96 06/30/23 06:00 112/70 06/30/23 05:30 136/80 06/30/23 05:30 88 14 94 06/30/23 05:00 105 H 25 H 96 06/30/23 05:00 132/78 06/30/23 04:30 130/81 06/30/23 04:30 101 H 19 96 06/30/23 04:00 104 H 17 95 06/30/23 04:00 126/82 06/30/23 03:30 125/79 06/30/23 03:30 103 H 15 96 06/30/23 03:00 98 H 20 96 06/30/23 03:00 126/76 06/30/23 02:30 119/74 06/30/23 02:30 109 H 21 95 06/30/23 02:00 106 H 23 96 06/30/23 02:00 116/74 06/30/23 01:30 105 H 19 96 06/30/23 01:30 111/82 06/30/23 01:00 106 H 20 96 06/30/23 01:00 125/74 06/30/23 00:30 119/73 06/30/23 00:30 109 H 14 95 06/29/23 23:50 88 L Room Air 06/30/23 00:00 115 H 19 94 Nasal Cannula 2 06/30/23 00:00 141/87 H 06/29/23 23:30 111 H 23 91 06/29/23 23:30 114/70 06/29/23 23:00 111 H 18 92 06/29/23 23:00 115/77 06/30/23 00:26 107 H Coding Level of Care Code 56527 SUB INP/OBS CARE 235MIN Diagnoses Perforated abdominal viscus R19.8 Sepsis A41.9 S/P colon resection Z90.49 Hard of hearing H91.90 Pancolitis K51.00
[2023-06-30] MEDS: CASPOFUNGIN 50 MG in SODIUM CHLORIDE 0.9% 250 ML IV SCH (11:04)
[2023-06-30] MEDS: PANTOprazole 40 MG in SYRINGE 0 ML IV SCH (11:04)
[2023-06-30 11:53] LABS: Dohle Bodies 2+; Hematocrit (blood only) 26.3 % (42.0-52.0); Hemoglobin 8.4 g/dl (14.0-18.0); Immature Granulocytes # (auto) 1.17 K/uL (0.01-0.20); Immature Granulocytes % (auto) 4.6 %; Lymphocytes # (auto) 0.82 K/uL (1.20-3.40); Lymphocytes % (auto) 3.2 %; Mean Corpuscular Hgb Conc 31.9 g/dL (32.0-36.0); Mean Corpuscular Volume 90.7 fL (80.0-100.0); Monocytes % (auto) 2.3 %; Neutrophils # (auto) 23.07 K/uL (1.40-6.50); Neutrophils % (auto) 89.9 %; Platelet Count 162 K/uL (130-400); Poikilocytosis Present; Polychromasia 1+; RDW Coefficient of Variation 14.2 % (11.5-14.5); RDW Standard Deviation 47.2 fL (36.4-46.3); Toxic Vacuolation 1+; White Blood Count 25.66 K/ul (4.8-10.8)
[2023-06-30] MEDS ORDERED: DEXTROSE 10% 1,000 ML IV PRN (14:15)
[2023-06-30] MEDS ORDERED: TPN/PPN CONSULT PHARMACY PRN (14:19)
[2023-07-01 04:36] LABS: Hematocrit (blood only) 23.4 % (42.0-52.0); Hemoglobin 7.6 g/dl (14.0-18.0); Mean Corpuscular Hgb Conc 32.5 g/dL (32.0-36.0); Mean Corpuscular Volume 89.3 fL (80.0-100.0); Platelet Count 105 K/uL (130-400); RDW Coefficient of Variation 14.3 % (11.5-14.5); RDW Standard Deviation 46.4 fL (36.4-46.3); Red Blood Count 2.62 M/uL (4.70-6.10); White Blood Count 24.32 K/ul (4.8-10.8)
[2023-07-01 04:50] LABS: Calcium 7.2 mg/dl (8.6-10.3); Magnesium 2.4 mg/dl (1.7-2.4); Potassium 4.2 mmol/L (3.5-5.1)
[2023-07-01 04:59] LABS: BUN Creatinine Ratio 22.2 (10-20); Est GFR (African American) 58.9 ml/min; Est GFR (Non-African American) 50.8 ml/min; Phosphorus 3.2 mg/dl (2.5-4.9)
[2023-07-01 05:03] LABS: Basophils # (auto) 0.06 K/uL (0.00-0.20); Basophils % (auto) 0.2 %; Dohle Bodies 1+; Echinocytes 1+; Immature Granulocytes # (auto) 1.51 K/uL (0.01-0.20); Immature Granulocytes % (auto) 6.2 %; Lymphocytes # (auto) 1.09 K/uL (1.20-3.40); Lymphocytes % (auto) 4.5 %; Monocytes # (auto) 0.59 K/uL (0.11-0.59); Monocytes % (auto) 2.4 %; Neutrophils # (auto) 21.07 K/uL (1.40-6.50); Neutrophils % (auto) 86.7 %; Toxic Granulation 1+
[2023-07-01] MEDS: PIPERACILLIN/TAZOBACTAM 4.5 GM in DEXTROSE 5% MINI-B 100 ML IV SCH ×3 (05:09→19:32)
[2023-07-01] MEDS: HYDROmorphone INJ 0.5 MG/0.5 ML SYR IV PRN ×2 (05:19→10:06)
[2023-07-01] MEDS: D5W AND LACTATED RINGERS 1,000 ML IV SCH (07:46)
[2023-07-01] MEDS: HYDROCORTISONE SOD 50 MG in SYRINGE 0 ML IV SCH ×2 (07:47→20:57)
[2023-07-01] MEDS: THIAMINE HCL 200 MG in SODIUM CHLORIDE 0.9% 50 ML IV SCH (07:48)
--- NOTE | 2023-07-01 08:28 | Nephrology Progress Note ---
Date of Service July 01, 2023 Assessment & Plan (1) Acute kidney injury: Plan: * Oliguric DERIK due to sepsis, hypotension, IV contrast administration * Baseline Cr 0.7-0.9 * Creatinine has improved from 1.91 to 1.53 overnight * UO improved to 1000 cc yesterday * Patient has entered into renal recovery phase. Electrolyte balance remains acceptable. 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 Deleon was evaluated in the ICU this morning. He voiced no medical concerns and appeared comfortable. He remains on a dextrose gtt. Review of Systems Review of Systems: Other (Unobtainable, severely [place]) Physical Exam Constitutional: not in distress Eyes: PERRL, conjunctivae normal, anicteric sclerae ENMT: external ear and nose normal, oropharynx normal Neck: trachea midline, no thyromegaly Respiratory: normal respiratory effort, lungs clear to auscultation Cardiovascular: Rate/Rhythm: regular rate, regular rhythm and + tachycardic Extremities: + edema (1+ pretibial pitting edema) Neurologic: awake Results & Data Vital Signs (Past 12 Hours) Vital Signs Temp Pulse Pulse Resp BP Pulse Ox O2 Del Method 07/01/23 07:25 76 07/01/23 03:31 36.5 C 72 18 121/77 97 Room Air 06/30/23 23:51 36.6 C 74 18 110/70 92 Room Air Laboratory Results Laboratory Tests 07/01/23 07/01/23 04:16 04:16 WBC 24.32 H Hgb 7.6 L Hct 23.4 L Plt Count 105 L Sodium 137 Potassium 4.2 Chloride 105 Carbon Dioxide 26 BUN 34 H Creatinine 1.53 H D Glucose 169 H Calcium 7.2 L Phosphorus 3.2 D Magnesium 2.4 PG Care Time/CCT Total # of Minutes Spent Total Time Spent with Patient: Total time spent is greater than 50% in coordination of care (as documented) at patient's floor/unit and/or counseling patient: Coding Level of Care Code 12839 SUB INP/OBS CARE 350MIN Diagnoses Acute kidney injury N17.9 SIRS with acute organ dysfunction due to infectious process A41.9; R65.20
--- NOTE | 2023-07-01 10:15 | Surgery Progress Note ---
Date of Service July 01, 2023 Assessment & Plan (1) Ulcerative colitis: (2) Pancolitis: (3) Perforated abdominal viscus: (4) SIRS with acute organ dysfunction due to infectious process: Plan POD # 3 s/p ex lap , subtotal colectomy and ileostomy formation afebrile, vss postop pain moderate but controlled minimal NGT output no lileostomy output creatinine improved to 1.5, increasing urine output hemoglobin 7.6 today , hemodynamically stable Plan: Continue pain management with IV Dilaudid prn continue NGT to LIS Continue елена drain continue IV Zosyn and caspofungin Continue Mondragon catheter PICC line to be established today for TPN Scds and incentive spirometry will consult wound care to help with ostomy care dressing change as needed continue medical management IV protonix okay for ice chips repeat am labs Dr. Alicea has seen and examined pt, agrees with above. Admission and Anticipated Discharge Date Admission Date: June 28, 2023 Subjective pain being controlled no nausea or vomiting no output in ileostomy yet Physical Exam Constitutional: + thin, + frail appearing, cooperative and comfortable; no acute distress and not diaphoretic Respiratory: normal respiratory effort; no respiratory distress and no labored breathing Cardiovascular: Rate/Rhythm: regular rate and regular rhythm Gastrointestinal (Abdomen): Inspection/Auscultation: abdomen normal to inspection, + abdominal surgical incision (clean/dry/intact) and + abdominal surgical drain present (serous); abdomen not distended Percussion/Palpation: + abdomen tender and abdomen soft; no guarding, abdomen not rigid and abdomen not firm NGT with dark green output Musculoskeletal: Edema in the upper extremities Skin: no rashes, warm and dry Psychiatric: Orientation: alert and oriented x 3 Results & Data Vital Signs (Past 12 Hours) Vital Signs Temp Pulse Pulse Resp BP BP Pulse Ox 07/01/23 09:00 73 91 07/01/23 09:00 116/72 07/01/23 08:30 108/71 07/01/23 08:30 77 15 92 07/01/23 08:00 78 15 92 07/01/23 08:00 115/69 07/01/23 07:30 76 17 92 07/01/23 07:30 114/71 07/01/23 07:00 76 15 93 07/01/23 07:00 115/70 07/01/23 07:25 76 07/01/23 03:31 36.5 C 72 18 121/77 97 06/30/23 23:51 36.6 C 74 18 110/70 92 O2 Del Method O2 Flow Rate 07/01/23 09:00 Nasal Cannula 2 07/01/23 09:00 07/01/23 08:30 07/01/23 08:30 Nasal Cannula 2 07/01/23 08:00 Nasal Cannula 2 07/01/23 08:00 07/01/23 07:30 Nasal Cannula 2 07/01/23 07:30 07/01/23 07:00 Nasal Cannula 2 07/01/23 07:00 07/01/23 07:25 07/01/23 03:31 Room Air 06/30/23 23:51 Room Air Laboratory Results 07/01/23 07/01/23 07/01/23 Range/Units 05:12 04:16 04:16 WBC 24.32 H (4.8-10.8) K/ul RBC 2.62 L (4.70-6.10) M/uL Hgb 7.6 L (14.0-18.0) g/dl Hct 23.4 L (42.0-52.0) % MCV 89.3 (80.0-100.0) fL MCH 29.0 (25.0-34.0) pg MCHC 32.5 (32.0-36.0) g/dL RDW Std Deviation 46.4 H (36.4-46.3) fL RDW Coeff of Ashley 14.3 (11.5-14.5) % Plt Count 105 L (130-400) K/uL MPV 11.0 (9.4-12.4) fL Immature Gran % (Auto) 6.2 % Neut % (Auto) 86.7 % Lymph % (Auto) 4.5 % [place] % (Auto) 2.4 % Eos % (Auto) 0.0 % Baso % (Auto) 0.2 % Neut # (Auto) 21.07 H (1.40-6.50) K/uL Lymph # (Auto) 1.09 L (1.20-3.40) K/uL [place] # (Auto) 0.59 (0.11-0.59) K/uL Eos # (Auto) 0.00 (0.00-0.50) K/uL Baso # (Auto) 0.06 (0.00-0.20) K/uL Immature Gran # (Auto) 1.51 H (0.01-0.20) K/uL Toxic Granulation 1+ Toxic Vacuolation Dohle Bodies 1+ Polychromasia Poikilocytosis Echinocytes 1+ Sodium 137 (136-145) mmol/L Potassium 4.2 (3.5-5.1) mmol/L Chloride 105 (98-107) mmol/L Carbon Dioxide 26 (21-32) mmol/L Anion Gap 6 (3-11) BUN 34 H (6-23) mg/dl Creatinine 1.53 H D (0.6-1.4) mg/dl Est Cr Clr Drug Dosing 45.0 ml/min Est GFR ( Amer) 58.9 ml/min Est GFR (Non-Af Amer) 50.8 ml/min BUN/Creatinine Ratio 22.2 H (10-20) Glucose 169 H (70-99(Fasting)) mg/dl POC Glucose 153 H (70-99) mg/dl Lactate (0.4-2.0) mmol/L Calcium 7.2 L (8.6-10.3) mg/dl Phosphorus 3.2 D (2.5-4.9) mg/dl Magnesium 2.4 (1.7-2.4) mg/dl Triglycerides 128 (0-150) mg/dl 06/30/23 06/30/23 06/30/23 Range/Units 23:41 16:19 11:03 WBC (4.8-10.8) K/ul RBC (4.70-6.10) M/uL Hgb (14.0-18.0) g/dl Hct (42.0-52.0) % MCV (80.0-100.0) fL MCH (25.0-34.0) pg MCHC (32.0-36.0) g/dL RDW Std Deviation (36.4-46.3) fL RDW Coeff of Ashley (11.5-14.5) % Plt Count (130-400) K/uL MPV (9.4-12.4) fL Immature Gran % (Auto) % Neut % (Auto) % Lymph % (Auto) % [place] % (Auto) % Eos % (Auto) % Baso % (Auto) % Neut # (Auto) (1.40-6.50) K/uL Lymph # (Auto) (1.20-3.40) K/uL [place] # (Auto) (0.11-0.59) K/uL Eos # (Auto) (0.00-0.50) K/uL Baso # (Auto) (0.00-0.20) K/uL Immature Gran # (Auto) (0.01-0.20) K/uL Toxic Granulation Toxic Vacuolation Dohle Bodies Polychromasia Poikilocytosis Echinocytes Sodium (136-145) mmol/L Potassium (3.5-5.1) mmol/L Chloride (98-107) mmol/L Carbon Dioxide (21-32) mmol/L Anion Gap (3-11) BUN (6-23) mg/dl Creatinine (0.6-1.4) mg/dl Est Cr Clr Drug Dosing ml/min Est GFR ( Amer) ml/min Est GFR (Non-Af Amer) ml/min BUN/Creatinine Ratio (10-20) Glucose (70-99(Fasting)) mg/dl POC Glucose 169 H 195 H (70-99) mg/dl Lactate 1.8 (0.4-2.0) mmol/L Calcium (8.6-10.3) mg/dl Phosphorus (2.5-4.9) mg/dl Magnesium (1.7-2.4) mg/dl Triglycerides (0-150) mg/dl 06/30/23 Range/Units 10:33 WBC 25.66 H (4.8-10.8) K/ul RBC 2.90 L (4.70-6.10) M/uL Hgb 8.4 L (14.0-18.0) g/dl Hct 26.3 L (42.0-52.0) % MCV 90.7 (80.0-100.0) fL MCH 29.0 (25.0-34.0) pg MCHC 31.9 L (32.0-36.0) g/dL RDW Std Deviation 47.2 H (36.4-46.3) fL RDW Coeff of Ashley 14.2 (11.5-14.5) % Plt Count 162 (130-400) K/uL MPV 10.0 (9.4-12.4) fL Immature Gran % (Auto) 4.6 % Neut % (Auto) 89.9 % Lymph % (Auto) 3.2 % [place] % (Auto) 2.3 % Eos % (Auto) 0.0 % Baso % (Auto) 0.0 % Neut # (Auto) 23.07 H (1.40-6.50) K/uL Lymph # (Auto) 0.82 L (1.20-3.40) K/uL [place] # (Auto) 0.60 H (0.11-0.59) K/uL Eos # (Auto) 0.00 (0.00-0.50) K/uL Baso # (Auto) 0.00 (0.00-0.20) K/uL Immature Gran # (Auto) 1.17 H (0.01-0.20) K/uL Toxic Granulation Toxic Vacuolation 1+ Dohle Bodies 2+ Polychromasia 1+ Poikilocytosis Present Echinocytes Sodium (136-145) mmol/L Potassium (3.5-5.1) mmol/L Chloride (98-107) mmol/L Carbon Dioxide (21-32) mmol/L Anion Gap (3-11) BUN (6-23) mg/dl Creatinine (0.6-1.4) mg/dl Est Cr Clr Drug Dosing ml/min Est GFR ( Amer) ml/min Est GFR (Non-Af Amer) ml/min BUN/Creatinine Ratio (10-20) Glucose (70-99(Fasting)) mg/dl POC Glucose (70-99) mg/dl Lactate (0.4-2.0) mmol/L Calcium (8.6-10.3) mg/dl Phosphorus (2.5-4.9) mg/dl Magnesium (1.7-2.4) mg/dl Triglycerides (0-150) mg/dl
--- NOTE | 2023-07-01 10:58 | XRay Report ---
SINGLE VIEW CHEST CLINICAL HISTORY: PICC placement. FINDINGS: An AP, portable, upright chest radiograph is correlated with chest CT dated 06/17/2023. An e nteric tube has been placed. The tip projects below the diaphragm over the proximal stomach. A right- sided PICC line has been placed. The tip projects over the cavoatrial junction. The heart is top norm al for projection. There is prominence of the pulmonary vasculature. There are small pleural effusion s with dependent consolidation. No pneumothorax is seen. The bony thorax is grossly intact. Pneumoper itoneum is seen below the right hemidiaphragm. Skin clips are noted in the abdominal midline. IMPRESSION: 1. An enteric tube and a right-sided PICC line have been placed as above. 2. Pneumoperitoneum is seen below the right hemidiaphragm. 3. There is prominence of the pulmonary vasculature. Correlate clinically for evidence of fluid overl oad/congestive change. 4. Small pleural effusions with dependent consolidation. 5. The left basilar pulmonary lesion seen on the recent abdominal CT is not appreciated on x-ray. ACT 112: Negative or not required by law. Electronically signed by: Hu Suarez M.D. 07/01/2023 10:57 AM
[2023-07-01] MEDS: CASPOFUNGIN 50 MG in SODIUM CHLORIDE 0.9% 250 ML IV SCH (11:13)
[2023-07-01] MEDS: PANTOprazole 40 MG in SYRINGE 0 ML IV SCH (11:19)
[2023-07-01 13:24] LABS: Hematocrit (blood only) 21.3 % (42.0-52.0); Hemoglobin 6.8 g/dl (14.0-18.0)
[2023-07-01] MEDS ORDERED: SODIUM CHLORIDE 0.9% 250 ML IV PRN (13:45)
[2023-07-01] MEDS: CENTRAL TPN IV SCH (15:16)
[2023-07-01] MEDS: [UNRECOGNIZED DRUG - OTHER] IV SCH (15:16)
--- NOTE | 2023-07-01 15:17 | Pharmacy Report ---
Pharmacy PN Initial Consult - Date of Service July 01, 2023 - Scope Pharmacy has been consulted to manage parenteral nutrition orders and order appropriate labs. As part of the Nutrition Support Team guidelines, pharmacy will work in conjunction with dietary when determining the patients caloric needs. - Subjective The patient is a 53 year old M admitted on 06/28/23 18:21 for sepsis secondary to perf colon, s/p subtotal colectomy, Ulcerative Colitis, DERIK. Patient is to receive parenteral nutrition for preexisting malnutrition prior to acute events with expected undernourishment while awaiting return of bowel fxn / enteral nutrition. Pertinent PMH: * Ulcerative colitis - Objective Height: 5 ft 9 in Weight: 68 kg Diet: NPO Vascular Access:: PICC Intake & Output (Last 24Hrs): Intake & Output 06/29/23 06/30/23 07/01/23 07/02/23 06:59 06:59 06:59 06:59 Intake Total 6710 / 6710 4217.667 / 4217.667 3451.917 / 3451.917 1087.333 / 1087.333 Output Total 1250 / 1250 269 / 269 1615 / 1615 825 / 825 Balance 5460 / 5460 3948.667 / 3948.667 1836.917 / 1836.917 262.333 / 262.333 Weight 57.7 kg 57.7 kg 68 kg Additional Fluid Losses/Gains:: Caspofungin Zosyn Laboratory Data (Last 24 Hrs):: 07/01/23 04:16 Sodium 137 Potassium 4.2 Chloride 105 Carbon Dioxide 26 BUN 34 H Creatinine 1.53 H D Glucose 169 H Calcium 7.2 L Phosphorus 3.2 D Magnesium 2.4 Triglycerides 128 Recent Pertinent Medications:: Hydrocortisone IV 50mg BID Pantoprazole IV Nutrition Assessment:: Please refer to the Notes section of the EMR for the most recent binding cutter synthetic cloth note. - Assessment Patient admitted to ICU for sepsis secondary to colonic perforation, peritonitis, Ulcerative Colitis, DERIK. Patient is s/p subtotal colectomy with ileostomy. Ileostomy output has been nil. Surgery has request use of TPN as pt not ready for enteral nutrition. Patient did have significant DERIK on admission which has begun to improve over the last 24 hrs. Likely in recovery phase of DERIK per Nephrology. Nephro consult recs limiting IVF admin. Reviewed Dehairing Machine Tender recommendation. Patient will initially be provided with limited volume for day 1 given fluid concerns as well as malnutrition concerns and potential for elyte abnormalities. Elytes reviewed today, no abnormalities in need of repletion. PICC line was placed this AM and reported to be OK'd for use by patient's RN. Will provide limited volume TPN today. Will need to monitor I/O's closely and volume status. Standard elyte, BSG monitoring for TPN has been ordered. Thiamine will be added to TPN rather than giving as separate infusion. - Plan For day 1 of PN administration, the following will be ordered: Macronutrients Amino acids 80 grams/day Dextrose 140 grams/day Lipids 50 grams/day Micronutrients Combined electrolytes 40 mL - contains 35 mEq Na, 20 meq K, 4.5 mEq Ca, 5 mEq Mg, 35 mEq Cl, 29.5 mEq acetate per 20 mL Sodium phosphate 0 MMol Sodium chloride 0 mEq Sodium acetate 0 mEq Potassium phosphate 18 mMol Potassium chloride 0 mEq Potassium acetate 0 mEq Magnesium sulfate 0 mEq Calcium gluconate 0 mEq Multivitamins 10 mL Trace Elements 1 mL Additional additives: Folic Acid 1mg; Thiamine 200mg Total volume 1059.2mL + 250mL Lipids = 1309.2mL to be infused over 24 hrs will provide 1296 kcal/day Labs to be ordered per PN order protocol Pharmacy will follow and adjust parenteral nutrition orders on a daily basis. Thank you.
[2023-07-01] MEDS ORDERED: DEXTROSE 10% 1,000 ML IV PRN (16:00)
[2023-07-01] MEDS ORDERED: CLINOLIPID 20% IV FAT EMULSION 250 ML IV SCH (16:00)
[2023-07-01] MEDS ORDERED: STOP CLINOLIPID SCH (22:00)
--- NOTE | 2023-07-01 22:18 | Hospitalist Progress Note ---
Date of Service July 01, 2023 Assessment & Plan (1) Perforated abdominal viscus: Plan: pt with recent diagnosis of Ulcertive colitis, and had sessile polyp biopsied presented with free air, to OR 06/28/23 with colon resection, subtotal colectomy and ileostomy three areas of perforation were identified, abscess and feculent material seen Pt presented with sepsis from above, on stress steroids, caspofungin, zosyn Continue NGT per Primary service- remain NPO Started TPN on 07/01 - DAVID drain per primary service - Consider continuing prednisone for his UC with ulceration on lip Acute blood loss anemia: Unsure of the exact cause, patient's hemoglobin has been downtrending, will transfuse one unit of PRBC. (2) Hard of hearing: (3) Acute kidney injury: Plan: continue volume replacement carefully with surgical loss and concern for ileostomy output disucssion of contrast nephropathy Plan DVT PROPHYLAXIS - SCDS - Chemoprophylaxis on hold post surgical case- initiate when hemostasis is ensured Admission and Anticipated Discharge Date Admission Date: June 28, 2023 Subjective Patient reports no new complaints except for the fact that he states he cannot hear himself breath. Nurse reports he appears to be intermittently confused. Review of Systems Review of Systems: All systems reviewed & are unremarkable except as noted in HPI & below Physical Exam Physical Exam: patient awake and alert card exam is regular lung: CTA BL abdomen is hypoactive bowel sounds ostomy in the mid to right Urine in lee bag appears very dark. Results & Data Results & Data Vital Signs (Past 12 Hours) Vital Signs Temp Pulse Resp BP Pulse Ox O2 Del Method O2 Flow Rate 07/01/23 20:59 37.1 C 62 19 107/69 94 2 07/01/23 20:13 37.1 C 67 19 107/69 94 2 07/01/23 19:13 37.1 C 69 22 123/72 92 07/01/23 18:43 37.1 C 79 19 116/73 92 2 07/01/23 18:28 75 20 116/72 92 07/01/23 18:08 39.0 C H 83 18 128/69 90 07/01/23 16:00 68 07/01/23 12:00 82 14 07/01/23 11:16 113/65 07/01/23 11:16 94 H 14 93 07/01/23 12:56 Nasal Cannula 2 PG Care Time/CCT Total # of Minutes Spent Total Time Spent with Patient: Total time spent is greater than 50% in coordination of care (as documented) at patient's floor/unit and/or counseling patient: Coding Level of Care Code 32266 SUB INP/OBS CARE 3/50MIN Diagnoses Perforated abdominal viscus R19.8 Hard of hearing H91.90 Acute kidney injury N17.9 Time Spent (min) 50
[2023-07-02] MEDS: PIPERACILLIN/TAZOBACTAM 4.5 GM in DEXTROSE 5% MINI-B 100 ML IV SCH ×3 (04:24→19:57)
[2023-07-02 04:42] LABS: Calcium 7.3 mg/dl (8.6-10.3); Magnesium 2.4 mg/dl (1.7-2.4); Potassium 3.9 mmol/L (3.5-5.1)
[2023-07-02 04:48] LABS: BUN Creatinine Ratio 27.6 (10-20); Creatinine Clr Calc Pharmacy 77.4 ml/min; Est GFR (African American) 92.8 ml/min; Est GFR (Non-African American) 80.1 ml/min; Phosphorus 2.6 mg/dl (2.5-4.9)
[2023-07-02 04:54] LABS: Hematocrit (blood only) 24.4 % (42.0-52.0); Hemoglobin 7.9 g/dl (14.0-18.0); Mean Corpuscular Hemoglobin 28.9 pg (25.0-34.0); Mean Corpuscular Hgb Conc 32.4 g/dL (32.0-36.0); Mean Corpuscular Volume 89.4 fL (80.0-100.0); Nucleated RBC # (auto) 0.02 K/uL (0.00-0.12); Nucleated RBC % (auto) 0.1 %; Platelet Count 101 K/uL (130-400); RDW Coefficient of Variation 14.4 % (11.5-14.5); Red Blood Count 2.73 M/uL (4.70-6.10); White Blood Count 15.22 K/ul (4.8-10.8)
--- NOTE | 2023-07-02 05:37 | Surgery Progress Note ---
Date of Service July 02, 2023 Assessment & Plan (1) Ulcerative colitis: (2) Pancolitis: (3) Perforated abdominal viscus: (4) SIRS with acute organ dysfunction due to infectious process: Plan POD # 4 s/p ex lap , subtotal colectomy and ileostomy formation afebrile, vss postop pain moderate but controlled minimal NGT output no lileostomy output creatinine improved to 1.0, increasing urine output transfused 1 unit PRBC yest; H/H 7.9/24 today Plan: Continue pain management with IV Dilaudid prn continue NGT to LIS continue DAVID continue IV Zosyn and caspofungin Continue Mondragon catheter may start gentle diuresis today start TPN Scds and incentive spirometry will consult wound care to help with ostomy care dressing change as needed continue medical management IV protonix okay for ice chips repeat am labs Admission and Anticipated Discharge Date Admission Date: June 28, 2023 Subjective Continuing to slowly improve. No nausea or vomiting. NG in place. No fevers. Kidney function returning to normal Physical Exam Constitutional: + thin, + frail appearing and comfortable; no acute distress Gastrointestinal (Abdomen): Inspection/Auscultation: abdomen normal to inspection, + abdominal surgical incision (clean/dry/intact) and + abdominal surgical drain present (serous); abdomen not distended Percussion/Palpation: + abdomen tender and abdomen soft; no guarding, abdomen not rigid and abdomen not firm Results & Data Vital Signs (Past 12 Hours) Vital Signs Temp Pulse Resp BP Pulse Ox O2 Del Method O2 Flow Rate 07/02/23 04:00 78 23 07/02/23 04:00 112/67 07/02/23 03:30 37.2 C 81 23 92 Nasal Cannula 2 07/02/23 03:00 74 20 90 07/02/23 00:00 62 17 93 07/02/23 00:00 117/68 07/02/23 00:00 74 07/01/23 23:30 70 20 91 07/01/23 23:00 75 22 07/01/23 23:00 36.9 C 116/71 07/01/23 22:30 68 24 92 Nasal Cannula 2 07/01/23 22:00 67 20 92 07/01/23 22:00 119/66 07/01/23 23:05 Nasal Cannula 2 07/01/23 20:59 37.1 C 62 19 107/69 94 2 07/01/23 20:13 37.1 C 67 19 107/69 94 2 07/01/23 19:13 37.1 C 69 22 123/72 92 07/01/23 18:43 37.1 C 79 19 116/73 92 2 07/01/23 18:28 75 20 116/72 92 07/01/23 18:08 39.0 C H 83 18 128/69 90
[2023-07-02] MEDS: HYDROmorphone INJ 0.5 MG/0.5 ML SYR IV PRN ×2 (07:50→16:24)
[2023-07-02] MEDS: HYDROCORTISONE SOD 50 MG in SYRINGE 0 ML IV SCH ×2 (07:51→19:57)
--- NOTE | 2023-07-02 08:38 | Nephrology Progress Note ---
Date of Service July 02, 2023 Assessment & Plan (1) Acute kidney injury: Plan: * Oliguric DERIK due to sepsis, hypotension, IV contrast administration * Baseline Cr 0.7-0.9 * Kidney function has recovered * Patient is nonoliguric. UO 1785 cc last 24 hours * Recommend continue monitoring UO, PRP * No further Nephrology evaluation indicated at this time. Will sign off. Please call if further assistance is needed (2) SIRS with acute organ dysfunction due to infectious process: Plan: * Severe colitis resulting in toxic megacolon w/ perforation * Colectomy w/ ileostomy performed emergently 06/28/23 * On IV Zosyn, Caspofungin * On empiric steroid therapy Admission and Anticipated Discharge Date Admission Date: June 28, 2023 Subjective Mr. Deleon was evaluated in his hospital room this morning. He appeared comfortable and voiced no new medical concerns Review of Systems Review of Systems: Other (Unobtainable, severely [place]) Physical Exam Constitutional: not in distress Eyes: PERRL, conjunctivae normal, anicteric sclerae ENMT: external ear and nose normal, oropharynx normal Neck: trachea midline, no thyromegaly Respiratory: normal respiratory effort, lungs clear to auscultation Cardiovascular: Rate/Rhythm: regular rate, regular rhythm and + tachycardic Extremities: + edema (trace pretibial pitting edema) Neurologic: awake Results & Data Vital Signs (Past 12 Hours) Vital Signs Temp Pulse Resp BP Pulse Ox O2 Del Method O2 Flow Rate 07/02/23 04:00 78 23 07/02/23 04:00 112/67 07/02/23 03:30 37.2 C 81 23 92 Nasal Cannula 2 07/02/23 03:00 74 20 90 07/02/23 00:00 62 17 93 07/02/23 00:00 117/68 07/02/23 00:00 74 07/01/23 23:30 70 20 91 07/01/23 23:00 75 22 07/01/23 23:00 36.9 C 116/71 07/01/23 22:30 68 24 92 Nasal Cannula 2 07/01/23 22:00 67 20 92 07/01/23 22:00 119/66 07/01/23 23:05 Nasal Cannula 2 07/01/23 20:59 37.1 C 62 19 107/69 94 2 Laboratory Results Laboratory Tests 07/02/23 07/02/23 04:14 04:14 WBC 15.22 H Hgb 7.9 L Hct 24.4 L Plt Count 101 L Sodium 138 Potassium 3.9 Chloride 106 Carbon Dioxide 27 BUN 29 H Creatinine 1.05 D Glucose 154 H Calcium 7.3 L Phosphorus 2.6 Magnesium 2.4 Coding Level of Care Code 48972 SUB INP/OBS CARE 3/50MIN Diagnoses Acute kidney injury N17.9 SIRS with acute organ dysfunction due to infectious process A41.9; R65.20
[2023-07-02] MEDS ORDERED: FUROSEMIDE 40 MG/4 ML VIAL IV ONE (09:58)
[2023-07-02] MEDS: CASPOFUNGIN 50 MG in SODIUM CHLORIDE 0.9% 250 ML IV SCH (10:17)
[2023-07-02] MEDS: PANTOprazole 40 MG in SYRINGE 0 ML IV SCH (10:17)
[2023-07-02 12:07] LABS: Hematocrit (blood only) 26.9 % (42.0-52.0); Hemoglobin 8.6 g/dl (14.0-18.0)
[2023-07-02] MEDS ORDERED: CENTRAL TPN IV SCH (16:00)
[2023-07-02] MEDS ORDERED: CLINOLIPID 20% IV FAT EMULSION 250 ML IV SCH (16:00)
[2023-07-02] MEDS ORDERED: [UNRECOGNIZED DRUG - OTHER] IV SCH (16:00)
[2023-07-02] MEDS: CENTRAL TPN IV SCH (17:00)
[2023-07-02] MEDS: [UNRECOGNIZED DRUG - OTHER] IV SCH (17:00)
[2023-07-02 17:31] LABS: Hematocrit (blood only) 27.2 % (42.0-52.0); Hemoglobin 8.7 g/dl (14.0-18.0)
[2023-07-02] MEDS: STOP CLINOLIPID SCH (22:06)
--- NOTE | 2023-07-02 23:12 | Hospitalist Progress Note ---
Date of Service July 02, 2023 Assessment & Plan (1) Perforated abdominal viscus: Plan: pt with recent diagnosis of Ulcertive colitis, and had sessile polyp biopsied presented with free air, to OR 06/28/23 with colon resection, subtotal colectomy and ileostomy three areas of perforation were identified, abscess and feculent material seen Pt presented with sepsis from above, on stress steroids, caspofungin, zosyn Continue NGT per Primary service- remain NPO Started TPN on 07/01 - DAVID drain per primary service - Consider continuing prednisone for his UC with ulceration on lip Acute blood loss anemia: Unsure of the exact cause, patient's hemoglobin has been downtrending, will transfuse one unit of PRBC. Hemoglobin at 8.6 now at 07/02 will continue to monitor. (2) Hard of hearing: (3) Acute kidney injury: Plan: continue volume replacement carefully with surgical loss and concern for ileostomy output disucssion of contrast nephropathy creatinine appears to have normalized on 07/02 Plan DVT PROPHYLAXIS - SCDS - Chemoprophylaxis on hold post surgical case- initiate when hemostasis is ensured Admission and Anticipated Discharge Date Admission Date: June 28, 2023 Subjective Patient reports no new symptoms. Review of Systems Review of Systems: All systems reviewed & are unremarkable except as noted in HPI & below Physical Exam Physical Exam: patient awake and alert card exam is regular lung: CTA BL abdomen is hypoactive bowel sounds ostomy in the mid to right Results & Data Results & Data Vital Signs (Past 12 Hours) Vital Signs Temp Pulse Resp BP Pulse Ox O2 Del Method O2 Flow Rate 07/02/23 22:17 Nasal Cannula 2 07/02/23 22:00 74 24 96 07/02/23 22:00 130/83 07/02/23 20:30 57 L 16 95 07/02/23 20:00 64 15 95 07/02/23 20:00 123/75 07/02/23 19:30 36.6 C 57 L 16 96 Nasal Cannula 2 07/02/23 19:00 56 L 17 97 07/02/23 18:00 62 16 97 07/02/23 16:00 62 10 L 96 07/02/23 16:00 125/78 07/02/23 14:00 56 L 17 97 07/02/23 14:00 122/76 07/02/23 12:00 66 18 95 07/02/23 12:00 123/74 07/02/23 12:49 Nasal Cannula 2 PG Care Time/CCT Total # of Minutes Spent Total Time Spent with Patient: Total time spent is greater than 50% in coordination of care (as documented) at patient's floor/unit and/or counseling patient: Coding Level of Care Code 48290 SUB INP/OBS CARE 2/35MIN Diagnoses Perforated abdominal viscus R19.8 Hard of hearing H91.90 Acute kidney injury N17.9
[2023-07-03] MEDS: HYDROmorphone INJ 0.5 MG/0.5 ML SYR IV PRN (01:25)
[2023-07-03] MEDS: PIPERACILLIN/TAZOBACTAM 4.5 GM in DEXTROSE 5% MINI-B 100 ML IV SCH ×3 (04:24→21:26)
[2023-07-03 04:41] LABS: Hematocrit (blood only) 24.9 % (42.0-52.0); Hemoglobin 8.3 g/dl (14.0-18.0); Mean Corpuscular Hemoglobin 30.2 pg (25.0-34.0); Mean Corpuscular Hgb Conc 33.3 g/dL (32.0-36.0); Mean Corpuscular Volume 90.5 fL (80.0-100.0); Mean Platelet Volume 11.3 fL (9.4-12.4); Platelet Count 134 K/uL (130-400); RDW Coefficient of Variation 14.4 % (11.5-14.5); RDW Standard Deviation 47.2 fL (36.4-46.3); Red Blood Count 2.75 M/uL (4.70-6.10); White Blood Count 13.49 K/ul (4.8-10.8)
[2023-07-03 05:01] LABS: Calcium 7.5 mg/dl (8.6-10.3); Magnesium 2.2 mg/dl (1.7-2.4); Potassium 3.9 mmol/L (3.5-5.1)
[2023-07-03 05:07] LABS: BUN Creatinine Ratio 31.1 (10-20); Creatinine Clr Calc Pharmacy 74.7 ml/min; Est GFR (African American) 91.8 ml/min; Est GFR (Non-African American) 79.2 ml/min; Phosphorus 3.4 mg/dl (2.5-4.9)
[2023-07-03 05:11] LABS: Basophils # (auto) 0.03 K/uL (0.00-0.20); Basophils % (auto) 0.2 %; Immature Granulocytes # (auto) 0.82 K/uL (0.01-0.20); Immature Granulocytes % (auto) 6.1 %; Lymphocytes # (auto) 0.77 K/uL (1.20-3.40); Lymphocytes % (auto) 5.7 %; Monocytes # (auto) 0.57 K/uL (0.11-0.59); Monocytes % (auto) 4.2 %; Neutrophils % (auto) 83.8 %; Polychromasia 1+
--- NOTE | 2023-07-03 05:58 | Surgery Progress Note ---
Date of Service July 03, 2023 Assessment & Plan (1) Perforated abdominal viscus: Plan: Patient is status post exploratory laparotomy with subtotal colectomy on 06/28/2023 (postop day #5) Continue analgesics as needed Continue antiemetics as needed Continue antibiotics in the form of Zosyn and antifungals in the form of caspofungin Continue Protonix for GI prophylaxis Continue n.p.o. status and NG tube until patient has improvement of ostomy output. Continue TPN until oral intake can be advanced and is deemed adequate Mobilize as able Acute blood loss anemia was noted postoperatively. Patient did receive 1 unit of packed red blood cells on 07/01/2023. Check a.m. labs when available Admission and Anticipated Discharge Date Admission Date: June 28, 2023 Supervising Physician Co-Signing Physician Notes Patient seen and examined, agree with above. Status post subtotal colectomy with end ileostomy for perforated ulcerative colitis. Has some mild pain but it is controlled with medications. Afebrile with stable vitals. Abdomen soft, incision without infection. DAVID drain minimal serosanguineous fluid. Ostomy with small amount of gas and liquid in the bag, pink and patent. NG with scant output. WBC downtrending, cultures with Pseudomonas and yeast. We will continue NG tube for now, KUB in the morning, if continued ostomy output then can remove NG tube and start on clear liquids. Continue peripheral nutrition. Consider gentle diuresis. Continue antibiotics and antifungals. Ambulate, out of bed to chair, I-S. Subjective Patient is currently resting comfortably in bed. He denies any nausea or vomiting. He notes that his pain is currently well controlled at the present time. He denies any shortness of breath. He denies any fevers, shakes, or chills. Physical Exam Gastrointestinal (Abdomen): Abdomen is soft and nondistended. Patient has an ostomy noted which appears to be pink and viable. There is a small amount of liquid stool in the collection bag. DAVID drain is in place draining serous fluid and has drained 10 cc over the past 24-hour. NG tube is in place and has drained approximately 100 cc over the past 24 hours. Results & Data Vital Signs (Past 12 Hours) Vital Signs Temp Pulse Resp BP Pulse Ox O2 Del Method O2 Flow Rate 07/03/23 05:00 64 17 95 07/03/23 04:00 69 17 97 07/03/23 04:00 36.8 C 128/87 07/03/23 03:00 66 16 97 07/03/23 02:00 63 15 97 07/03/23 02:00 147/83 H 07/03/23 01:00 60 19 95 07/03/23 00:00 56 L 18 96 07/03/23 00:00 126/75 07/03/23 00:00 56 L 07/02/23 23:30 53 L 16 96 07/02/23 23:00 37.0 C 57 L 17 95 Nasal Cannula 2 07/02/23 22:30 56 L 16 94 07/02/23 22:17 Nasal Cannula 2 07/02/23 22:00 74 24 96 07/02/23 22:00 130/83 07/02/23 20:30 57 L 16 95 07/02/23 20:00 64 15 95 07/02/23 20:00 123/75 07/02/23 19:30 36.6 C 57 L 16 96 Nasal Cannula 2 07/02/23 19:00 56 L 17 97 07/02/23 18:00 62 16 97 PG Care Time/CCT Total # of Minutes Spent Total Time Spent with Patient: Total time spent is greater than 50% in coordination of care (as documented) at patient's floor/unit and/or counseling patient: Coding Level of Care Code None Diagnoses Perforated abdominal viscus R19.8
[2023-07-03] MEDS: HYDROCORTISONE SOD 50 MG in SYRINGE 0 ML IV SCH (07:48)
[2023-07-03] MEDS: CASPOFUNGIN 50 MG in SODIUM CHLORIDE 0.9% 250 ML IV SCH (12:55)
[2023-07-03] MEDS: PANTOprazole 40 MG in SYRINGE 0 ML IV SCH (12:55)
[2023-07-03] MEDS ORDERED: CLINOLIPID 20% IV FAT EMULSION 250 ML IV SCH (16:00)
[2023-07-03] MEDS ORDERED: [UNRECOGNIZED DRUG - OTHER] IV SCH (16:00)
[2023-07-03] MEDS ORDERED: CENTRAL TPN IV SCH (16:00)
--- NOTE | 2023-07-03 21:53 | Hospitalist Progress Note ---
Date of Service July 03, 2023 Assessment & Plan (1) Perforated abdominal viscus: Plan: pt with recent diagnosis of Ulcertive colitis, and had sessile polyp biopsied presented with free air, to OR 06/28/23 with colon resection, subtotal colectomy and ileostomy three areas of perforation were identified, abscess and feculent material seen Pt presented with sepsis from above, on stress steroids, caspofungin, zosyn Continue NGT per Primary service- remain NPO Started TPN on 07/01 - DAVID drain per primary service - Consider continuing prednisone for his UC with ulceration on lip Acute blood loss anemia: Unsure of the exact cause, patient's hemoglobin has been downtrending, will transfuse one unit of PRBC. Hemoglobin at 8.6 now at 07/02 will continue to monitor. 8.3 hemoglobin on 07/03 (2) Hard of hearing: (3) Acute kidney injury: Plan: continue volume replacement carefully with surgical loss and concern for ileostomy output disucssion of contrast nephropathy creatinine appears to have normalized on 07/02 tolerated dose of lasix on 07/02 Creatinine is stable on 07/03 appreciate input from nephro Plan DVT PROPHYLAXIS - SCDS - Chemoprophylaxis on hold post surgical case- initiate when hemostasis is ensured Admission and Anticipated Discharge Date Admission Date: June 28, 2023 Subjective Patient reports no new symptoms. Review of Systems Review of Systems: All systems reviewed & are unremarkable except as noted in HPI & below Physical Exam Physical Exam: patient awake and alert card exam is regular lung: CTA BL abdomen is hypoactive bowel sounds ostomy in the mid to right Results & Data Results & Data Vital Signs (Past 12 Hours) Vital Signs Pulse Resp BP Pulse Ox O2 Del Method O2 Flow Rate 07/03/23 20:00 Nasal Cannula 2 07/03/23 18:23 125/80 07/03/23 18:23 62 19 07/03/23 18:00 58 L 21 97 07/03/23 16:00 61 19 95 07/03/23 14:00 63 19 97 07/03/23 12:00 74 92 07/03/23 12:00 155/94 H 07/03/23 10:00 59 L 19 96 07/03/23 10:00 129/85 07/03/23 14:17 63 PG Care Time/CCT Total # of Minutes Spent Total Time Spent with Patient: Total time spent is greater than 50% in coordination of care (as documented) at patient's floor/unit and/or counseling patient: Coding Level of Care Code 42811 SUB INP/OBS CARE MIN Diagnoses Perforated abdominal viscus R19.8 Hard of hearing H91.90 Acute kidney injury N17.9
[2023-07-03] MEDS: STOP CLINOLIPID SCH (22:30)
[2023-07-04] MEDS: PIPERACILLIN/TAZOBACTAM 4.5 GM in DEXTROSE 5% MINI-B 100 ML IV SCH ×3 (04:13→19:42)
--- NOTE | 2023-07-04 05:15 | Surgery Progress Note ---
Date of Service July 04, 2023 Assessment & Plan (1) Perforated abdominal viscus: Plan: Patient is status post exploratory laparotomy with subtotal colectomy on 06/28/2023 (postop day #6) Continue analgesics as needed Continue antiemetics as needed Continue antibiotics in the form of Zosyn and antifungals in the form of caspofungin Continue Protonix for GI prophylaxis Continue n.p.o. status and NG tube for the present time KUB has been ordered for this morning which is pending. Results of this will impact when NG tube can be removed and diet can be advanced Continue TPN until oral intake can be advanced and is deemed adequate Mobilize as able Acute blood loss anemia was noted postoperatively. Patient did receive 1 unit of packed red blood cells on 07/01/2023. Check a.m. labs when available Admission and Anticipated Discharge Date Admission Date: June 28, 2023 Supervising Physician Co-Signing Physician Notes Patient seen examined, labs and imaging reviewed, agree with above. Status post subtotal colectomy with end ileostomy for perforated UC. Continues to feel better, pain controlled. Abdomen soft, incision without infection, DAVID minimal serous drainage. Ostomy appears healthy, small amount of liquid and gas in the bag. KUB performed but not read yet, appears to still have mild ileus. We will continue NG tube for now, continue current management. Subjective Patient is resting comfortably in bed. He notes his pain is well controlled at the present time. There is been no reported nausea or vomiting. He denies any fevers, shakes, or chills. He denies any shortness of breath. Physical Exam Gastrointestinal (Abdomen): Abdomen is soft and nondistended. Surgical incision is clean, dry, and intact with patricia. Ostomy is noted to be viable with a moderate amount of liquid contents in the collection bag. DAVID drain is in place draining minimal serous fluid. NG tube remains in place. Results & Data Vital Signs (Past 12 Hours) Vital Signs Temp Pulse Pulse Resp BP BP Pulse Ox 07/03/23 22:01 60 07/04/23 03:14 36.5 C 64 19 136/76 94 07/03/23 20:20 36.8 C 70 18 125/70 95 07/03/23 20:20 07/03/23 23:16 36.4 C L 61 18 138/76 93 07/03/23 20:00 10/21/23 18:23 125/80 07/03/23 18:23 62 19 07/03/23 18:00 58 L 21 97 O2 Del Method O2 Flow Rate 07/03/23 22:01 07/04/23 03:14 Nasal Cannula 1 07/03/23 20:20 Nasal Cannula 3 07/03/23 20:20 Nasal Cannula 3 07/03/23 23:16 Nasal Cannula 1 07/03/23 20:00 Nasal Cannula 2 07/03/23 18:23 07/03/23 18:23 07/03/23 18:00 PG Care Time/CCT Total # of Minutes Spent Total Time Spent with Patient: Total time spent is greater than 50% in coordination of care (as documented) at patient's floor/unit and/or counseling patient: Coding Level of Care Code None Diagnoses Perforated abdominal viscus R19.8
[2023-07-04 06:15] LABS: Basophils # (auto) 0.02 K/uL (0.00-0.20); Basophils % (auto) 0.1 %; Hematocrit (blood only) 25.5 % (42.0-52.0); Hemoglobin 8.1 g/dl (14.0-18.0); Immature Granulocytes # (auto) 0.61 K/uL (0.01-0.20); Immature Granulocytes % (auto) 4.5 %; Lymphocytes # (auto) 0.95 K/uL (1.20-3.40); Mean Corpuscular Hgb Conc 31.8 g/dL (32.0-36.0); Mean Corpuscular Volume 91.4 fL (80.0-100.0); Mean Platelet Volume 11.2 fL (9.4-12.4); Monocytes # (auto) 0.45 K/uL (0.11-0.59); Monocytes % (auto) 3.3 %; Neutrophils # (auto) 11.51 K/uL (1.40-6.50); Neutrophils % (auto) 85.1 %; Platelet Count 196 K/uL (130-400); RDW Standard Deviation 46.5 fL (36.4-46.3); Red Blood Count 2.79 M/uL (4.70-6.10); White Blood Count 13.54 K/ul (4.8-10.8)
[2023-07-04 06:33] LABS: BUN Creatinine Ratio 37.2 (10-20); Calcium 7.7 mg/dl (8.6-10.3); Creatinine Clr Calc Pharmacy 89.7 ml/min; Est GFR (African American) 113.9 ml/min; Est GFR (Non-African American) 98.3 ml/min; Magnesium 2.2 mg/dl (1.7-2.4); Phosphorus 2.7 mg/dl (2.5-4.9); Potassium 3.8 mmol/L (3.5-5.1)
[2023-07-04] MEDS: HYDROCORTISONE SOD 50 MG in SYRINGE 0 ML IV SCH (08:17)
[2023-07-04] MEDS: CASPOFUNGIN 50 MG in SODIUM CHLORIDE 0.9% 250 ML IV SCH (10:57)
[2023-07-04] MEDS: PANTOprazole 40 MG in SYRINGE 0 ML IV SCH (10:57)
[2023-07-04] MEDS ORDERED: [UNRECOGNIZED DRUG - OTHER] IV SCH (16:00)
[2023-07-04] MEDS ORDERED: CENTRAL TPN IV SCH (16:00)
[2023-07-04] MEDS ORDERED: CLINOLIPID 20% IV FAT EMULSION 250 ML IV SCH (16:00)
--- NOTE | 2023-07-04 16:11 | XRay Report ---
XR KUB/Abdomen 1 view CLINICAL HISTORY: s/p subtotal colectomy TECHNIQUE: 1 view of the abdomen was obtained. Comparison: Comparison is made to abdomen radiograph 06/27/[address] abdomen pelvis 06/28/2023 FINDINGS: Enteric tube is seen. Postsurgical changes of subtotal colectomy noted with patricia seen. Prominence of a few loops of small bowel measuring up to 42 mm in diameter. IMPRESSION: Post surgical changes are seen. Prominence of multiple loops of small bowel may represent postoperati ve ileus, less likely obstruction. Enteric tube is in satisfactory position. ACT 112: Negative or not required by law. Electronically signed by: Sudhakar Ambrose M.D. 07/04/2023 4:10 PM
[2023-07-04] MEDS: HYDROmorphone INJ 0.5 MG/0.5 ML SYR IV PRN (19:49)
--- NOTE | 2023-07-04 21:56 | Hospitalist Progress Note ---
Date of Service July 04, 2023 Assessment & Plan (1) Perforated abdominal viscus: Plan: pt with recent diagnosis of Ulcertive colitis, and had sessile polyp biopsied presented with free air, to OR 06/28/23 with colon resection, subtotal colectomy and ileostomy three areas of perforation were identified, abscess and feculent material seen Pt presented with sepsis from above, on stress steroids, caspofungin, zosyn Continue NGT per Primary service- remain NPO Started TPN on 07/01 - DAVID drain per primary service - Consider continuing prednisone for his UC with ulceration on lip Acute blood loss anemia: Unsure of the exact cause, patient's hemoglobin has been downtrending, will transfuse one unit of PRBC. Stabel on 07/04, above 8, may slightly be decreasing. (2) Hard of hearing: (3) Acute kidney injury: Plan: continue volume replacement carefully with surgical loss and concern for ileostomy output disucssion of contrast nephropathy creatinine appears to have normalized on 07/02 tolerated dose of lasix on 07/02 Creatinine is stable on 07/03 appreciate input from nephro Plan DVT PROPHYLAXIS - SCDS - Chemoprophylaxis on hold post surgical case- initiate when hemostasis is ensured Admission and Anticipated Discharge Date Admission Date: June 28, 2023 Subjective 53 yo male reports no new symptoms. Review of Systems Review of Systems: All systems reviewed & are unremarkable except as noted in HPI & below Physical Exam Physical Exam: patient awake and alert card exam is regular lung: CTA BL abdomen is hypoactive bowel sounds ostomy in the mid to right Results & Data Results & Data Vital Signs (Past 12 Hours) Vital Signs Temp Pulse Pulse Resp BP Pulse Ox O2 Del Method 07/04/23 19:54 Nasal Cannula 07/04/23 19:21 36.4 C L 65 18 142/76 H 93 Nasal Cannula 07/04/23 16:00 60 07/04/23 15:50 36.9 C 62 19 142/73 H 93 Room Air 07/04/23 12:28 36.8 C 70 17 148/81 H 94 Nasal Cannula O2 Flow Rate 07/04/23 19:54 2 07/04/23 19:21 1 07/04/23 16:00 07/04/23 15:50 07/04/23 12:28 1.0 PG Care Time/CCT Total # of Minutes Spent Total Time Spent with Patient: Total time spent is greater than 50% in coordination of care (as documented) at patient's floor/unit and/or counseling patient: Coding Level of Care Code 23315 SUB INP/OBS CARE 235MIN Diagnoses Perforated abdominal viscus R19.8 Hard of hearing H91.90 Acute kidney injury N17.9
[2023-07-04] MEDS: STOP CLINOLIPID SCH (22:35)
[2023-07-05] MEDS: PIPERACILLIN/TAZOBACTAM 4.5 GM in DEXTROSE 5% MINI-B 100 ML IV SCH ×3 (03:42→20:48)
--- NOTE | 2023-07-05 05:25 | Communication Note ---
Date of Service: July 05, 2023 I was called by RN at approximately 5:00 AM on 07/05/2023. She noted the patient's midline incision is draining some serosanguineous fluid. She was also concerned the patient's stoma appeared dusky. Assessed the patient at bedside approximately 5 minutes after receiving this call. Upon my evaluation of the patient he is resting comfortably in bed. He did not complain of any worsening abdominal pain. The patient's stoma was examined and there was some liquid stool in the collection bag. The stoma did appear to be somewhat dusky in appearance. The patient's midline incision was evaluated and it is intact with patricia however there is some serosanguineous drainage seeping from the inferior portion of this incision. The patient does have a DAVID drain in place that was previously draining some serosanguineous fluid but had minimal output throughout the night. The patient has not complained of any worsening pain but does note some tenderness with palpation of his abdomen. For the present time we will just maintain the patient on n.p.o. status with NG tube in place. I did discuss with the nurse to not allow the patient to have any thing by mouth specifically to not let him have any further ice chips. I will notify the primary surgeon this morning of these findings and a determination will then be made if patient requires any further type of intervention. Of note, the patient did have his NG tube inadvertently pulled out last night and this was replaced by nursing staff. An x-ray performed after NG tube was reinserted did show that the tube appeared to be within the stomach.
--- NOTE | 2023-07-05 07:48 | XRay Report ---
KUB CLINICAL HISTORY: NG placement COMPARISON STUDY: CT of the abdomen and pelvis June 28, 2023. KUB July 04, 2023 at 6:54 AM. FINDINGS: Tip of nasogastric tube is within the body of the stomach. Skin patricia from laparotomy are noted. Lucency under the right hemidiaphragm is noted. There are small bilateral pleural effusions w ith bibasilar opacities. Interstitial thickening is present. Right PICC is in place. IMPRESSION: 1. Tip of nasogastric tube within the body of the stomach. 2. Lucency under the right hemidiaphragm. This favors pneumoperitoneum. This may be postsurgical [place] correlation with date of surgery is recommended to exclude the possibility of perforation/leak. 3. Small bilateral pleural effusions with bibasilar opacities which could reflect consolidation or at electasis. 4. Interstitial thickening suggestive of mild pulmonary edema. ACT 112: Negative or not required by law. Electronically signed by: Andres Amanda M.D. 07/05/2023 7:46 AM
[2023-07-05] MEDS: HYDROCORTISONE SOD 50 MG in SYRINGE 0 ML IV SCH (08:49)
[2023-07-05 10:02] LABS: Hemoglobin 8.7 g/dl (14.0-18.0); Mean Corpuscular Hemoglobin 29.4 pg (25.0-34.0); Mean Corpuscular Hgb Conc 32.2 g/dL (32.0-36.0); Mean Corpuscular Volume 91.2 fL (80.0-100.0); Nucleated RBC # (auto) 0.02 K/uL (0.00-0.12); Nucleated RBC % (auto) 0.1 %; Platelet Count 318 K/uL (130-400); Red Blood Count 2.96 M/uL (4.70-6.10); White Blood Count 16.75 K/ul (4.8-10.8)
--- NOTE | 2023-07-05 10:04 | Surgery Progress Note ---
Date of Service July 05, 2023 Assessment & Plan (1) Ulcerative colitis: (2) Pancolitis: (3) Perforated abdominal viscus: (4) SIRS with acute organ dysfunction due to infectious process: Plan POD # 7 s/p ex lap , subtotal colectomy and ileostomy formation afebrile, vss postop pain minimal minimal NGT output liquid stool in ileostomy cloudy serosanguineous/bloody output from inferior aspect of incision overnight. No skin dehiscence, unable to palpate fascial dehiscence, no signs of external infection at inferior aspect of incision Plan: Will obtain urgent CT scan abd and pelvis with iv contrast to further evaluate for any fascial dehiscence Continue pain management with IV Dilaudid prn continue NGT to LIS continue DAVID continue IV Zosyn and caspofungin Continue Modnragon catheter Continue TPN Scds and incentive spirometry dressing change as needed Continue medical management Dr. Alicea has seen and examined patient, agrees with above. Admission and Anticipated Discharge Date Admission Date: June 28, 2023 Subjective very hard of hearing which limits ROS nurse at bedside, skin intact, drainage mostly from lower aspect of incision ostomy not dusky, just had dried stool on it, gas coming out of ileostomy no pain nurse states patient states he is hungry Physical Exam Constitutional: WD/WN, vitals as above + thin, cooperative and comfortable; no acute distress, not ill appearing, not in distress, not combative and not diaphoretic Respiratory: normal respiratory effort; no respiratory distress Gastrointestinal (Abdomen): Inspection/Auscultation: abdomen normal to inspection, + abdominal surgical incision (skin intact with no erythema, patricia intact), + abdominal surgical drain present and + Jimenez-Mobley sign present (minimal serous drainage); abdomen not distended Percussion/Palpation: abdomen soft; abdomen nontender, no guarding and abdomen not rigid There is no erythema of the entire incision, there is no induration or fluctuance of the lower aspect of incision, patricia intact, does not look like concavity from external inspection of the inferior aspect of incision but there is bloody/thick serosanguineous slightly purulent drainage on the dressing the nurse just removed Ileostomy is pink and viable with liquid stool output Skin: no rashes, warm and dry Psychiatric: Orientation: alert and oriented x 3 Results & Data Vital Signs (Past 12 Hours) Vital Signs Temp Pulse Pulse Resp BP Pulse Ox O2 Del Method 07/05/23 07:54 72 07/05/23 07:23 36.6 C 78 19 145/81 H 92 Nasal Cannula 07/05/23 03:24 36.7 C 70 16 154/81 H 69 L Nasal Cannula 07/04/23 23:52 65 07/04/23 22:57 36.7 C 66 17 150/84 H 92 Nasal Cannula O2 Flow Rate 07/05/23 07:54 07/05/23 07:23 2.0 07/05/23 03:24 2 07/04/23 23:52 07/04/23 22:57 2 Laboratory Results 07/05/23 07/05/23 07/05/23 Range/Units 09:37 09:37 00:32 WBC Pending RBC Pending Hgb Pending Hct Pending MCV Pending MCH Pending MCHC Pending Plt Count Pending Sodium Pending Potassium Pending Chloride Pending Carbon Dioxide Pending Anion Gap Pending BUN Pending Creatinine Pending Est Cr Clr Drug Dosing Pending Est GFR ( Amer) Pending Est GFR (Non-Af Amer) Pending BUN/Creatinine Ratio Pending Glucose Pending POC Glucose 124 H (70-99) mg/dl Calcium Pending Phosphorus Pending Magnesium Pending Total Bilirubin Pending Direct Bilirubin Pending AST Pending ALT Pending Alkaline Phosphatase Pending C-Reactive Protein Pending Total Protein Pending Albumin Pending
[2023-07-05 10:20] LABS: Albumin Level 2.1 gm/dl (3.4-5.0); BUN Creatinine Ratio 36.5 (10-20); Bilirubin Direct 0.4 mg/dl (0-0.2); C Reactive Protein 4.84 mg/dl (0-0.5); Calcium 7.8 mg/dl (8.6-10.3); Creatinine Clr Calc Pharmacy 91.3 ml/min; Est GFR (African American) 114.5 ml/min; Est GFR (Non-African American) 98.8 ml/min; Magnesium 2.2 mg/dl (1.7-2.4); Phosphorus 2.6 mg/dl (2.5-4.9); Potassium 4.4 mmol/L (3.5-5.1); Total Protein 5.2 gm/dl (6.0-8.3)
[2023-07-05] MEDS: CASPOFUNGIN 50 MG in SODIUM CHLORIDE 0.9% 250 ML IV SCH (11:37)
[2023-07-05] MEDS: PANTOprazole 40 MG in SYRINGE 0 ML IV SCH (11:40)
--- NOTE | 2023-07-05 13:27 | Hospitalist Progress Note ---
Date of Service July 05, 2023 Assessment & Plan (1) Perforated abdominal viscus: Plan: pt with recent diagnosis of Ulcertive colitis, and had sessile polyp biopsied presented with free air, to OR 06/28/23 with colon resection, subtotal colectomy and ileostomy three areas of perforation were identified, abscess and feculent material seen Pt presented with sepsis from above, on stress steroids, caspofungin, zosyn Continue NGT per Primary service- remain NPO Started TPN on 07/01 - DAVID drain per primary service - Consider continuing prednisone for his UC with ulceration on lip Obtain ct scan of abd pelvis given worsening WBC Acute blood loss anemia: Unsure of the exact cause, patient's hemoglobin has been downtrending, will transfuse one unit of PRBC. Stable on 07/04, above 8, may slightly be decreasing. (2) Hard of hearing: (3) Acute kidney injury: Plan: continue volume replacement carefully with surgical loss and concern for ileostomy output disucssion of contrast nephropathy creatinine appears to have normalized on 07/02 tolerated dose of lasix on 07/02 Creatinine is stable on 07/03 appreciate input from nephro Plan DVT PROPHYLAXIS - SCDS - Chemoprophylaxis on hold post surgical case- initiate when hemostasis is ensured Admission and Anticipated Discharge Date Admission Date: June 28, 2023 Subjective Patient is confused. Talking to imaginary people in the room. Review of Systems Review of Systems: All systems reviewed & are unremarkable except as noted in HPI & below Physical Exam Physical Exam: patient awake and alert card exam is regular lung: CTA BL abdomen is hypoactive bowel sounds ostomy in the mid to right Results & Data Results & Data Vital Signs (Past 12 Hours) Vital Signs Temp Pulse Pulse Resp BP Pulse Ox O2 Del Method 07/05/23 11:42 37.0 C 70 19 140/81 92 Nasal Cannula 07/05/23 11:16 Nasal Cannula 07/05/23 07:54 72 07/05/23 07:23 36.6 C 78 19 145/81 H 92 Nasal Cannula 07/05/23 03:24 36.7 C 70 16 154/81 H 69 L Nasal Cannula O2 Flow Rate 07/05/23 11:42 1.0 07/05/23 11:16 2 07/05/23 07:54 07/05/23 07:23 2.0 07/05/23 03:24 2 PG Care Time/CCT Total # of Minutes Spent Total Time Spent with Patient: Total time spent is greater than 50% in coordination of care (as documented) at patient's floor/unit and/or counseling patient: Coding Level of Care Code 09637 SUB INP/OBS CARE 2/35MIN Diagnoses Perforated abdominal viscus R19.8 Hard of hearing H91.90 Acute kidney injury N17.9
[2023-07-05] MEDS ORDERED: OPTIRAY 320 100ml IV ONE (13:38)
--- NOTE | 2023-07-05 14:44 | CT Scan Report ---
CT OF THE ABDOMEN AND PELVIS WITH CONTRAST CLINICAL HISTORY: increasing drainage from lower wound incision COMPARISON STUDY: CT of the abdomen and pelvis June 28, 2023. TECHNIQUE: Following IV administration of 93 mL of Optiray, axial images of the abdomen and pelvis we re obtained from the lung bases to the proximal femurs. Images were reviewed in the axial, sagittal, and coronal planes. IV contrast was administered without complication. Automated exposure control wa s utilized for the study. A dose lowering technique was utilized adhering to the principles of ALARA . CT DOSE: 548.65 mGy.cm FINDINGS: Small to moderate left and small right pleural effusions are partially imaged. Extensive lo wer lobe opacities favor atelectasis. No pneumatosis is present. Moderate pneumoperitoneum is present . There are postoperative findings consistent with laparotomy with subtotal colectomy right lower no drant ileostomy. There is no evidence for a bowel obstruction. Multiple loculated peritoneal fluid co llections are present. There is mild peritoneal enhancement. The larger collections communicate. The largest collections are within the upper quadrants. Left upper quadrant pocket of fluid measures 16.2 x 14.8 cm. There is a loculated 6.4 x 3.8 cm fluid collection along the gastric fundus. A 9.3 x 3 cm anterior pelvic fluid collection is present. A 6.9 x 5.3 cm pelvic fluid collection is present. Surg ical drain is within this collection. The gastric wall is edematous without focal thickening. A locul e of gas along the posterior aspect of the stomach is noted. The stomach is not distended. Liver, spl een, adrenal glands and pancreas are unremarkable. There is no biliary or pancreatic ductal dilatatio n. There is heterogeneous enhancement of the kidneys. There is no hydronephrosis. A Mondragon balloon and gas within the bladder noted. There is diffuse anasarca. A small amount of fluid within the subcutan eous tissues of the laparotomy site are noted. IMPRESSION: 1. Status post subtotal colectomy with right lower quadrant ileostomy. Surgical drain in place. Multi ple loculated gas and fluid containing peritoneal fluid collections, as described above. The amount o f gas is slightly greater than expected 6 days following surgery although is probably postsurgical or related to the indwelling drain. A perforated hollow viscus would be difficult to completely exclude and continued radiographic follow-up to ensure expected resolution of the gas is recommended. The fl uid collections could reflect loculated ascites however developing abscesses could appear similar. 2. No evidence for a bowel obstruction. 3. Diffusely thickened, edematous gastric wall. This raises the possibility of gastritis. 4. Heterogeneous enhancement of the kidneys, a nonspecific finding which could be correlated with ferny al function. 5. Evidence for volume overload. Anasarca. Small to moderate left and small right pleural effusions. Extensive associated lower lobe opacities favor compressive atelectasis. ACT 112: Negative or not required by law. Electronically signed by: Andres Amanda M.D. 07/05/2023 2:43 PM
[2023-07-05] MEDS ORDERED: CENTRAL TPN IV SCH (16:00)
[2023-07-05] MEDS ORDERED: [UNRECOGNIZED DRUG - OTHER] IV SCH (16:00)
[2023-07-05] MEDS ORDERED: CLINOLIPID 20% IV FAT EMULSION 250 ML IV SCH (16:00)
[2023-07-05] MEDS: HYDROmorphone INJ 0.5 MG/0.5 ML SYR IV PRN (20:50)
[2023-07-05] MEDS: STOP CLINOLIPID SCH (22:00)
[2023-07-06] MEDS: NICOTINE 7 MG/24 HR TDSY TD SCH ×2 (02:10→10:32)
[2023-07-06] MEDS: PIPERACILLIN/TAZOBACTAM 4.5 GM in DEXTROSE 5% MINI-B 100 ML IV SCH ×3 (04:05→21:10)
[2023-07-06 06:11] LABS: Hemoglobin 8.7 g/dl (14.0-18.0); Mean Corpuscular Hemoglobin 29.1 pg (25.0-34.0); Mean Corpuscular Hgb Conc 32.2 g/dL (32.0-36.0); Mean Corpuscular Volume 90.3 fL (80.0-100.0); Mean Platelet Volume 10.6 fL (9.4-12.4); Platelet Count 431 K/uL (130-400); RDW Coefficient of Variation 13.9 % (11.5-14.5); RDW Standard Deviation 45.3 fL (36.4-46.3); Red Blood Count 2.99 M/uL (4.70-6.10); White Blood Count 22.47 K/ul (4.8-10.8)
[2023-07-06 06:28] LABS: BUN Creatinine Ratio 34.1 (10-20); C Reactive Protein 6.75 mg/dl (0-0.5); Calcium 7.9 mg/dl (8.6-10.3); Creatinine Clr Calc Pharmacy 81.2 ml/min; Est GFR (African American) 114.5 ml/min; Est GFR (Non-African American) 98.8 ml/min; Potassium 5.1 mmol/L (3.5-5.1)
[2023-07-06] MEDS: PANTOprazole 40 MG in SYRINGE 0 ML IV SCH (10:32)
[2023-07-06] MEDS: CASPOFUNGIN 50 MG in SODIUM CHLORIDE 0.9% 250 ML IV SCH (10:34)
--- NOTE | 2023-07-06 11:29 | Surgery Progress Note ---
Date of Service July 06, 2023 Assessment & Plan (1) Ulcerative colitis: (2) Pancolitis: (3) Perforated abdominal viscus: (4) SIRS with acute organ dysfunction due to infectious process: Plan POD # 8 s/p ex lap , subtotal colectomy and ileostomy formation afebrile, vss postop pain minimal liquid stool and gas in ileostomy cloudy serosanguineous/purulent drainage from inferior aspect of incision overnight. No skin dehiscence. repeat CT scan 07/05/23 with multiple large peritoneal fluid collections concerning for multiple intra-abdominal abscess leukocytosis of 22k today Plan: Discussed ct scan findings with Star Waller PA-C with IR, plan to drain LUQ large collection under CT guidance today keep npo for now continue pain management continue IV anbitiotics and antifungal continue елена drain to bulb suction continue dressing changes continue scds for dvt prophlyaxis continue medical management possible clear liquids after IR drainage today Admission and Anticipated Discharge Date Admission Date: June 28, 2023 Subjective Hard of hearing makes ROS limited No abdominal pain No nausea or vomiting Per nurse did not have as much drainage from the lower incision as previously. More gas and liquid stool in ileostomy than previously. States he has times of confusion. No fevers. States he states he is hungry sometimes. Physical Exam Constitutional: + thin, + cachectic, + frail appearing, cooperative and comfortable; no acute distress, not diaphoretic and not lethargic Respiratory: normal respiratory effort; no respiratory distress, no labored breathing and no retractions Gastrointestinal (Abdomen): Inspection/Auscultation: abdomen normal to inspection, + abdominal surgical incision (clean/dry/intact with patricia), + abdominal surgical drain present (minimal drainage) and + hypoactive bowel sounds; abdomen not distended and + abnormal bowel sounds Percussion/Palpation: abdomen soft; abdomen nontender, no guarding, abdomen not rigid and abdomen not firm Purulent drainage from the inferior aspect of incision on palpation, moderate amount. Skin: no rashes, warm and dry Psychiatric: Orientation: alert and oriented to person Results & Data Vital Signs (Past 12 Hours) Vital Signs Temp Pulse Pulse Pulse Resp BP Pulse Ox 07/06/23 09:23 07/06/23 08:11 37.0 C 78 16 145/74 H 90 07/06/23 07:22 108 H 07/06/23 03:40 36.6 C 73 16 151/83 H 85 L O2 Del Method O2 Flow Rate 07/06/23 09:23 Nasal Cannula 1 07/06/23 08:11 Nasal Cannula 1 07/06/23 07:22 07/06/23 03:40 Room Air Laboratory Results 07/06/23 07/06/23 07/06/23 Range/Units 06:05 05:42 05:42 WBC (4.8-10.8) K/ul RBC (4.70-6.10) M/uL Hgb (14.0-18.0) g/dl Hct (42.0-52.0) % MCV (80.0-100.0) fL MCH (25.0-34.0) pg MCHC (32.0-36.0) g/dL RDW Std Deviation (36.4-46.3) fL RDW Coeff of Ashley (11.5-14.5) % Plt Count (130-400) K/uL MPV (9.4-12.4) fL Sodium 141 (136-145) mmol/L Potassium 5.1 (3.5-5.1) mmol/L Chloride 106 (98-107) mmol/L Carbon Dioxide 29 (21-32) mmol/L Anion Gap 6 (3-11) BUN 29 H (6-23) mg/dl Creatinine 0.85 (0.6-1.4) mg/dl Est Cr Clr Drug Dosing 81.2 ml/min Est GFR ( Amer) 114.5 ml/min Est GFR (Non-Af Amer) 98.8 ml/min BUN/Creatinine Ratio 34.1 H (10-20) Glucose 165 H (70-99(Fasting)) mg/dl POC Glucose 151 H (70-99) mg/dl Calcium 7.9 L (8.6-10.3) mg/dl C-Reactive Protein 6.75 H (0-0.5) mg/dl Procalcitonin 0.43 (0-0.5) ng/ml 07/06/23 07/06/23 07/05/23 Range/Units 05:42 00:16 18:59 WBC 22.47 H (4.8-10.8) K/ul RBC 2.99 L (4.70-6.10) M/uL Hgb 8.7 L (14.0-18.0) g/dl Hct 27.0 L (42.0-52.0) % MCV 90.3 (80.0-100.0) fL MCH 29.1 (25.0-34.0) pg MCHC 32.2 (32.0-36.0) g/dL RDW Std Deviation 45.3 (36.4-46.3) fL RDW Coeff of Ashley 13.9 (11.5-14.5) % Plt Count 431 H (130-400) K/uL MPV 10.6 (9.4-12.4) fL Sodium (136-145) mmol/L Potassium (3.5-5.1) mmol/L Chloride (98-107) mmol/L Carbon Dioxide (21-32) mmol/L Anion Gap (3-11) BUN (6-23) mg/dl Creatinine (0.6-1.4) mg/dl Est Cr Clr Drug Dosing ml/min Est GFR ( Amer) ml/min Est GFR (Non-Af Amer) ml/min BUN/Creatinine Ratio (10-20) Glucose (70-99(Fasting)) mg/dl POC Glucose 129 H 124 H (70-99) mg/dl Calcium (8.6-10.3) mg/dl C-Reactive Protein (0-0.5) mg/dl Procalcitonin (0-0.5) ng/ml 07/05/23 07/05/23 Range/Units 12:23 08:29 WBC (4.8-10.8) K/ul RBC (4.70-6.10) M/uL Hgb (14.0-18.0) g/dl Hct (42.0-52.0) % MCV (80.0-100.0) fL MCH (25.0-34.0) pg MCHC (32.0-36.0) g/dL RDW Std Deviation (36.4-46.3) fL RDW Coeff of Ashley (11.5-14.5) % Plt Count (130-400) K/uL MPV (9.4-12.4) fL Sodium (136-145) mmol/L Potassium (3.5-5.1) mmol/L Chloride (98-107) mmol/L Carbon Dioxide (21-32) mmol/L Anion Gap (3-11) BUN (6-23) mg/dl Creatinine (0.6-1.4) mg/dl Est Cr Clr Drug Dosing ml/min Est GFR ( Amer) ml/min Est GFR (Non-Af Amer) ml/min BUN/Creatinine Ratio (10-20) Glucose (70-99(Fasting)) mg/dl POC Glucose 110 H 130 H (70-99) mg/dl Calcium (8.6-10.3) mg/dl C-Reactive Protein (0-0.5) mg/dl Procalcitonin (0-0.5) ng/ml Diagnostic Findings CT OF THE ABDOMEN AND PELVIS WITH CONTRAST CLINICAL HISTORY: increasing drainage from lower wound incision COMPARISON STUDY: CT of the abdomen and pelvis June 28, 2023. TECHNIQUE: Following IV administration of 93 mL of Optiray, axial images of the abdomen and pelvis were obtained from the lung bases to the proximal femurs. Images were reviewed in the axial, sagittal, and coronal planes. IV contrast was administered without complication. Automated exposure control was utilized for the study. A dose lowering technique was utilized adhering to the principles of ALARA. CT DOSE: 548.65 mGy.cm FINDINGS: Small to moderate left and small right pleural effusions are partially imaged. Extensive lower lobe opacities favor atelectasis. No pneumatosis is present. Moderate pneumoperitoneum is present. There are postoperative findings consistent with laparotomy with subtotal colectomy right lower quadrant ileostomy. There is no evidence for a bowel obstruction. Multiple loculated peritoneal fluid collections are present. There is mild peritoneal enhancement. The larger collections communicate. The largest collections are within the upper quadrants. Left upper quadrant pocket of fluid measures 16.2 x 14.8 cm. There is a loculated 6.4 x 3.8 cm fluid collection along the gastric fundus. A 9.3 x 3 cm anterior pelvic fluid collection is present. A 6.9 x 5.3 cm pelvic fluid collection is present. Surgical drain is within this collection. The gastric wall is edematous without focal thickening. A locule of gas along the posterior aspect of the stomach is noted. The stomach is not distended. Liver, spleen, adrenal glands and pancreas are unremarkable. There is no biliary or pancreatic ductal dilatation. There is heterogeneous enhancement of the kidneys. There is no hydronephrosis. A Mondragon balloon and gas within the bladder noted. There is diffuse anasarca. A small amount of fluid within the subcutaneous tissues of the laparotomy site are noted. IMPRESSION: 1. Status post subtotal colectomy with right lower quadrant ileostomy. Surgical drain in place. Multiple loculated gas and fluid containing peritoneal fluid collections, as described above. The amount of gas is slightly greater than expected 6 days following surgery although is probably postsurgical or related to the indwelling drain. A perforated hollow viscus would be difficult to completely exclude and continued radiographic follow-up to ensure expected resolution of the gas is recommended. The fluid collections could reflect loculated ascites however developing abscesses could appear similar. 2. No evidence for a bowel obstruction. 3. Diffusely thickened, edematous gastric wall. This raises the possibility of gastritis. 4. Heterogeneous enhancement of the kidneys, a nonspecific finding which could be correlated with renal function. 5. Evidence for volume overload. Anasarca. Small to moderate left and small right pleural effusions. Extensive associated lower lobe opacities favor compressive atelectasis.
[2023-07-06] MEDS ORDERED: fentaNYL citrate PF 100 MCG/2 ML VIAL ONE (11:49)
--- NOTE | 2023-07-06 12:26 | Communication Note ---
Date of Service: July 06, 2023 Patient found to have a LUQ fluid collection. Patient will require a CT guided drainage today, however patient is unable to provide consent due to his in termittent confusion. I discussed case with Star TAM from Interventional Radiology who will also provider consent provider to provider. This procedure is medically necessary.
--- NOTE | 2023-07-06 13:33 | CT Scan Report ---
CT-guided left upper quadrant fluid collection drain placement INDICATION: Left upper quadrant fluid collection PROCEDURE: Procedure and risks were explained. The procedure was deemed medically necessary by the at tending physician secondary to patient confusion. A final timeout was completed. The patient was plac ed supine on the CT exam table. The left upper quadrant was prepped and draped in sterile fashion. 1% buffered lidocaine was utilized for skin anesthesia. Utilizing CT guidance, a 10 Yi locking pigtail catheter was advanced into the left upper quadrant pocket of fluid. 20 mL of clear yellow fluid was aspirated and sent to lab for culture analysis. The pigtail catheter was then sutured to the skin with 2-0 silk and placed to suction bag drainage. Post -CT imaging demonstrated adequate catheter position without immediate complication. The patient shila ated the procedure well. Vital signs will be monitored on the floor. IMPRESSION: Left upper quadrant drain placement as detailed above. Performed, dictated, and signed by Star Waller PA-C; to be co-signed by Dr. Sudhakar Ambrose. Electronically signed by: Sudhakar Ambrose M.D. 07/06/2023 4:17 PM
--- NOTE | 2023-07-06 14:00 | Pharmacy Report ---
PHA: Parenteral Nutrition Con - Date of Service July 06, 2023 - Scope Pharmacy was consulted on 07/01/23 to manage parenteral nutrition orders for this patient. - Subjective The patient is currently on day 6 of central parenteral nutrition for preexisting malnutrition/prolonged NPO secondary to perforated colon/peritonitis. - Objective Height: 5 ft 9 in Weight: 57.8 kg Diet: NPO Intake & Output (24hrs):: Intake & Output 07/04/23 07/05/23 07/06/23 07/07/23 06:59 06:59 06:59 06:59 Intake Total 2952.4 / 2952.4 2433.1 / 2433.1 1538.1 / 1538.1 1435.35 / 1435.35 Output Total 1755 / 1755 2225 / 2225 3050 / 3050 Balance 1197.4 / 1197.4 208.1 / 208.1 -1511.9 / -1511.9 1435.35 / 1435.35 Weight 66.1 kg 65 kg 57.8 kg Laboratory Data (Last 24 Hr):: 07/06/23 05:42 Sodium 141 Potassium 5.1 Chloride 106 Carbon Dioxide 29 BUN 29 H Creatinine 0.85 Glucose 165 H Calcium 7.9 L Nutrition Assessment:: Please refer to the Notes section of the EMR for the most recent manuscript reader note. - Assessment * Patient is POD #8 s/p subtotal colectomy w/ ileostomy formation * TPN at goal rate for past 4 days * Potassium has trended up over past 3 days (5.1 mmol/L today) * Given this rise, final ~4.5 hours of yesterday's TPN bag held * Will significantly decrease potassium content in today's bag * Other electrolytes largely stable - Plan For day 6 of PN administration, the following will be ordered: Macronutrients Amino acids 96 grams/day Dextrose 168 grams/day Lipids 50 grams/day Micronutrients Combined electrolytes 20 mL - contains 35 mEq Na, 20 meq K, 4.5 mEq Ca, 5 mEq Mg, 35 mEq Cl, 29.5 mEq acetate per 20 mL Sodium phosphate 30 MMol Sodium acetate 40 mEq Magnesium sulfate 4.06 mEq Calcium gluconate 4.65 mEq Multivitamins 10 mL Trace Elements 1 mL Additional additives: folic acid 1 mg, thiamine 200 mg Total volume 1274 mL to be infused over 24 hrs will provide 1455 kcal/day Labs, as indicated, will be ordered per protocol Pharmacy will continue to follow and adjust parenteral nutrition orders on a daily basis. Thank you for allowing us to participate in the care of this patient.
[2023-07-06] MEDS ORDERED: CENTRAL TPN IV SCH (16:00)
[2023-07-06] MEDS ORDERED: CLINOLIPID 20% IV FAT EMULSION 250 ML IV SCH (16:00)
[2023-07-06] MEDS ORDERED: [UNRECOGNIZED DRUG - OTHER] IV SCH (16:00)
[2023-07-06] MEDS: STOP CLINOLIPID SCH (23:02)
--- NOTE | 2023-07-06 23:27 | Hospitalist Progress Note ---
Date of Service July 06, 2023 Assessment & Plan (1) Perforated abdominal viscus: Plan: pt with recent diagnosis of Ulcertive colitis, and had sessile polyp biopsied presented with free air, to OR 06/28/23 with colon resection, subtotal colectomy and ileostomy three areas of perforation were identified, abscess and feculent material seen Pt presented with sepsis from above, on stress steroids, caspofungin, zosyn Continue NGT per Primary service- remain NPO Started TPN on 07/01 - DAVID drain per primary service - Consider continuing prednisone for his UC with ulceration on lip Obtained ct scan of abd pelvis given worsening WBC: a LUQ fluid collection. Patient will require a CT guided drainage today, however patient is unable to provide consent due to his intermittent confusion. I discussed case with Star TAM from Interventional Radiology who will also provider consent provider to provider. This procedure is medically necessary. Acute blood loss anemia: Unsure of the exact cause, patient's hemoglobin has been downtrending, will transfuse one unit of PRBC. Stable on 07/05, above 8, (2) Hard of hearing: (3) Acute kidney injury: Plan: continue volume replacement carefully with surgical loss and concern for ileostomy output disucssion of contrast nephropathy creatinine appears to have normalized on 07/02 tolerated dose of lasix on 07/02 Creatinine is stable on 07/03 appreciate input from nephro Plan DVT PROPHYLAXIS - SCDS - Chemoprophylaxis on hold post surgical case- initiate when hemostasis is ensured Admission and Anticipated Discharge Date Admission Date: June 28, 2023 Subjective 53 yo male reports no new symptoms as patient is confused and talking to visual hallucinations Review of Systems Review of Systems: Unobtainable due to cognitive status Physical Exam Physical Exam: patient awake and alert card exam is regular lung: CTA BL abdomen is hypoactive bowel sounds ostomy in the mid to right Results & Data Results & Data Vital Signs (Past 12 Hours) Vital Signs Temp Pulse Pulse Resp BP Pulse Ox O2 Del Method 07/06/23 23:03 36.7 C 74 22 148/76 H 92 Room Air 07/06/23 19:16 37.1 C 80 18 150/80 H 95 Nasal Cannula 07/06/23 16:40 36.3 C L 83 16 150/82 H 95 Nasal Cannula 07/06/23 15:20 83 07/06/23 13:45 36.3 C L 86 18 148/80 H 95 Nasal Cannula 07/06/23 11:45 36.9 C 80 18 150/78 H 94 Nasal Cannula O2 Flow Rate 07/06/23 23:03 07/06/23 19:16 1.0 07/06/23 16:40 1 07/06/23 15:20 07/06/23 13:45 1 07/06/23 11:45 1 PG Care Time/CCT Total # of Minutes Spent Total Time Spent with Patient: Total time spent is greater than 50% in coordination of care (as documented) at patient's floor/unit and/or counseling patient: Coding Level of Care Code 52010 SUB INP/OBS CARE 2/35MIN Diagnoses Perforated abdominal viscus R19.8 Hard of hearing H91.90 Acute kidney injury N17.9
[2023-07-07] MEDS: PIPERACILLIN/TAZOBACTAM 4.5 GM in DEXTROSE 5% MINI-B 100 ML IV SCH ×3 (04:09→20:30)
[2023-07-07] MEDS: HYDROmorphone INJ 0.5 MG/0.5 ML SYR IV PRN ×2 (04:37→08:49)
[2023-07-07 06:42] LABS: Hematocrit (blood only) 27.3 % (42.0-52.0); Hemoglobin 8.9 g/dl (14.0-18.0); Mean Corpuscular Hemoglobin 29.1 pg (25.0-34.0); Mean Corpuscular Hgb Conc 32.6 g/dL (32.0-36.0); Mean Corpuscular Volume 89.2 fL (80.0-100.0); Mean Platelet Volume 10.5 fL (9.4-12.4); Platelet Count 466 K/uL (130-400); RDW Coefficient of Variation 13.9 % (11.5-14.5); RDW Standard Deviation 44.9 fL (36.4-46.3); Red Blood Count 3.06 M/uL (4.70-6.10); White Blood Count 21.09 K/ul (4.8-10.8)
[2023-07-07 06:52] LABS: BUN Creatinine Ratio 33.8 (10-20); C Reactive Protein 10.17 mg/dl (0-0.5); Calcium 7.6 mg/dl (8.6-10.3); Creatinine Clr Calc Pharmacy 86.3 ml/min; Est GFR (African American) 117.4 ml/min; Est GFR (Non-African American) 101.3 ml/min; Potassium 3.2 mmol/L (3.5-5.1)
[2023-07-07 07:51] LABS: Magnesium 2.1 mg/dl (1.7-2.4); Phosphorus 3.4 mg/dl (2.5-4.9)
[2023-07-07] MEDS: NICOTINE 7 MG/24 HR TDSY TD SCH (08:19)
[2023-07-07] MEDS: POTASSIUM CHLORIDE / WTR 10 MEQ/100 ML PLCT IV SCH ×4 (08:31→11:29)
[2023-07-07] MEDS: ONDANSETRON INJ 2 MG/ML 2 ML VIAL IV PRN (08:49)
[2023-07-07] MEDS: PANTOprazole 40 MG in SYRINGE 0 ML IV SCH (10:25)
[2023-07-07] MEDS: CASPOFUNGIN 50 MG in SODIUM CHLORIDE 0.9% 250 ML IV SCH (10:27)
[2023-07-07] MEDS ORDERED: [UNRECOGNIZED DRUG - OTHER] IV SCH (16:00)
[2023-07-07] MEDS ORDERED: CENTRAL TPN IV SCH (16:00)
[2023-07-07] MEDS ORDERED: CLINOLIPID 20% IV FAT EMULSION 250 ML IV SCH (16:00)
--- NOTE | 2023-07-07 16:28 | Surgery Progress Note ---
Date of Service July 07, 2023 Assessment & Plan (1) Ulcerative colitis: (2) Pancolitis: (3) Perforated abdominal viscus: (4) SIRS with acute organ dysfunction due to infectious process: Plan POD # 9 s/p ex lap , subtotal colectomy and ileostomy formation afebrile, vss postop pain minimal minimal liquid stool and gas in ileostomy cloudy serosanguineous/purulent drainage from inferior aspect of incision overnight. No skin dehiscence. repeat CT scan 07/05/23 with multiple large peritoneal fluid collections concerning for multiple intra-abdominal abscess now s/p IR drain placement culture with gram negative bacilli leukocytosis of 21k today Plan: Continue clear liquids for now continue drain to gravity and LLQ drain to bulb suction continue clear liquids continue pain management as needed continue IV antibiotics and antifungal continue dressing changes continue scds for dvt prophlyaxis continue medical management repeat am labs Admission and Anticipated Discharge Date Admission Date: June 28, 2023 Subjective limited ROS as patient is very hard of hearing, hearing aids are not in, batteries No abdominal pain not eating much but tolerating liquids had broth, jello and some [place] ice no nausea ostomy still with gas, not much liquid stool guards at bedside, goes in and out of confusion Physical Exam Constitutional: WD/WN, vitals as above + thin, + cachectic, + frail appearing, cooperative and comfortable; no acute distress, not combative, not diaphoretic and not lethargic Gastrointestinal (Abdomen): Inspection/Auscultation: abdomen normal to inspection, + abdominal surgical incision (clean/dry/intact) and + abdominal surgical drain present; abdomen not distended and + abnormal bowel sounds Percussion/Palpation: abdomen soft; abdomen nontender, no guarding, abdomen not rigid and abdomen not firm There is still moderate amount of cloudy/purulent serous drainage from the inferior aspect of incision on palpation, unable to palpate a clear defined fascial defect. Skin is still intact. Nontender to palpation. There is now a LUQ drain with cloudy/purulent serous drainage in catheter bag about 500 cc ostomy is pink with some gas in ostomy bag and little liquid stool output Skin: no rashes, warm and dry Psychiatric: Orientation: alert; + not oriented x 3 Results & Data Vital Signs (Past 12 Hours) Vital Signs Temp Pulse Resp BP Pulse Ox O2 Del Method O2 Flow Rate 07/07/23 15:58 36.7 C 76 20 149/75 H 95 Nasal Cannula 1 07/07/23 11:38 36.8 C 86 20 146/83 H 93 Nasal Cannula 1 07/07/23 08:00 Nasal Cannula 2 07/07/23 07:59 36.5 C 88 20 151/81 H 92 Room Air Laboratory Results 07/07/23 07/07/23 07/07/23 Range/Units 05:53 05:53 05:53 WBC 21.09 H (4.8-10.8) K/ul RBC 3.06 L (4.70-6.10) M/uL Hgb 8.9 L (14.0-18.0) g/dl Hct 27.3 L (42.0-52.0) % MCV 89.2 (80.0-100.0) fL MCH 29.1 (25.0-34.0) pg MCHC 32.6 (32.0-36.0) g/dL RDW Std Deviation 44.9 (36.4-46.3) fL RDW Coeff of Ashley 13.9 (11.5-14.5) % Plt Count 466 H (130-400) K/uL MPV 10.5 (9.4-12.4) fL Sodium 139 (136-145) mmol/L Potassium 3.2 L D (3.5-5.1) mmol/L Chloride 104 (98-107) mmol/L Carbon Dioxide 28 (21-32) mmol/L Anion Gap 7 (3-11) BUN 27 H (6-23) mg/dl Creatinine 0.80 (0.6-1.4) mg/dl Est Cr Clr Drug Dosing 86.3 ml/min Est GFR ( Amer) 117.4 ml/min Est GFR (Non-Af Amer) 101.3 ml/min BUN/Creatinine Ratio 33.8 H (10-20) Glucose 139 H (70-99(Fasting)) mg/dl POC Glucose (70-99) mg/dl Calcium 7.6 L (8.6-10.3) mg/dl Phosphorus 3.4 (2.5-4.9) mg/dl Magnesium 2.1 (1.7-2.4) mg/dl C-Reactive Protein 10.17 H (0-0.5) mg/dl Procalcitonin 0.37 (0-0.5) ng/ml 07/06/23 Range/Units 23:56 WBC (4.8-10.8) K/ul RBC (4.70-6.10) M/uL Hgb (14.0-18.0) g/dl Hct (42.0-52.0) % MCV (80.0-100.0) fL MCH (25.0-34.0) pg MCHC (32.0-36.0) g/dL RDW Std Deviation (36.4-46.3) fL RDW Coeff of Ashley (11.5-14.5) % Plt Count (130-400) K/uL MPV (9.4-12.4) fL Sodium (136-145) mmol/L Potassium (3.5-5.1) mmol/L Chloride (98-107) mmol/L Carbon Dioxide (21-32) mmol/L Anion Gap (3-11) BUN (6-23) mg/dl Creatinine (0.6-1.4) mg/dl Est Cr Clr Drug Dosing ml/min Est GFR ( Amer) ml/min Est GFR (Non-Af Amer) ml/min BUN/Creatinine Ratio (10-20) Glucose (70-99(Fasting)) mg/dl POC Glucose 154 H (70-99) mg/dl Calcium (8.6-10.3) mg/dl Phosphorus (2.5-4.9) mg/dl Magnesium (1.7-2.4) mg/dl C-Reactive Protein (0-0.5) mg/dl Procalcitonin (0-0.5) ng/ml Microbiology 07/06/23 12:45 Gram Stain - Final Abdomen, Left Upper Quadrant Aerobic and Anaerobic Culture - Preliminary Gram negative bacilli
--- NOTE | 2023-07-07 21:31 | Hospitalist Progress Note ---
Date of Service July 07, 2023 Assessment & Plan (1) Perforated abdominal viscus: Plan: pt with recent diagnosis of Ulcertive colitis, and had sessile polyp biopsied presented with free air, to OR 06/28/23 with colon resection, subtotal colectomy and ileostomy three areas of perforation were identified, abscess and feculent material seen Pt presented with sepsis from above, on stress steroids, caspofungin, zosyn Continue NGT per Primary service- remain NPO Started TPN on 07/01 - DAVID drain per surgery - Consider continuing prednisone for his UC with ulceration on lip Obtained ct scan of abd pelvis given worsening WBC: a LUQ fluid collection. This was drained by IR and now has a LUQ Drain placed on 07/06 Purulent fluid is being removed on 07/07 continue zoysn and caspofungin Acute blood loss anemia: Unsure of the exact cause, patient's hemoglobin has been downtrending, will transfuse one unit of PRBC. Stable on 07/05, above 8, (2) Hard of hearing: (3) Acute kidney injury: Plan: continue volume replacement carefully with surgical loss and concern for ileostomy output disucssion of contrast nephropathy creatinine appears to have normalized on 07/02 tolerated dose of lasix on 07/02 Creatinine is stable on 07/03 appreciate input from nephro Plan DVT PROPHYLAXIS - SCDS - Chemoprophylaxis on hold post surgical case- initiate when hemostasis is ensured Admission and Anticipated Discharge Date Admission Date: June 28, 2023 Subjective Patient has been confused today. Review of Systems Review of Systems: All systems reviewed & are unremarkable except as noted in HPI & below Physical Exam Physical Exam: patient awake and alert card exam is regular lung: CTA BL abdomen is hypoactive bowel sounds ostomy in the mid to right LUQ drain: purulent drainage(about 500 ml) Results & Data Results & Data Vital Signs (Past 12 Hours) Vital Signs Temp Pulse Resp BP Pulse Ox O2 Del Method O2 Flow Rate 07/07/23 19:16 36.5 C 112 H 20 161/83 H 91 Nasal Cannula 2.0 07/07/23 15:58 36.7 C 76 20 149/75 H 95 Nasal Cannula 1 07/07/23 11:38 36.8 C 86 20 146/83 H 93 Nasal Cannula 1 PG Care Time/CCT Total # of Minutes Spent Total Time Spent with Patient: Total time spent is greater than 50% in coordination of care (as documented) at patient's floor/unit and/or counseling patient: Coding Level of Care Code 46238 SUB INP/OBS CARE 2MIN Diagnoses Perforated abdominal viscus R19.8 Hard of hearing H91.90 Acute kidney injury N17.9
[2023-07-07] MEDS: STOP CLINOLIPID SCH (22:38)
[2023-07-08] MEDS: PIPERACILLIN/TAZOBACTAM 4.5 GM in DEXTROSE 5% MINI-B 100 ML IV SCH ×3 (04:03→20:14)
[2023-07-08 06:16] LABS: Hematocrit (blood only) 26.9 % (42.0-52.0); Hemoglobin 8.8 g/dl (14.0-18.0); Mean Corpuscular Hemoglobin 28.9 pg (25.0-34.0); Mean Corpuscular Hgb Conc 32.7 g/dL (32.0-36.0); Mean Corpuscular Volume 88.5 fL (80.0-100.0); Mean Platelet Volume 10.4 fL (9.4-12.4); Platelet Count 552 K/uL (130-400); RDW Standard Deviation 44.4 fL (36.4-46.3); Red Blood Count 3.04 M/uL (4.70-6.10); White Blood Count 22.98 K/ul (4.8-10.8)
[2023-07-08 06:34] LABS: BUN Creatinine Ratio 36.4 (10-20); C Reactive Protein 10.21 mg/dl (0-0.5); Calcium 7.5 mg/dl (8.6-10.3); Creatinine Clr Calc Pharmacy 84.5 ml/min; Est GFR (African American) 119.2 ml/min; Est GFR (Non-African American) 102.9 ml/min; Phosphorus 3.2 mg/dl (2.5-4.9); Potassium 3.8 mmol/L (3.5-5.1)
[2023-07-08 06:43] LABS: Basophils # (auto) 0.03 K/uL (0.00-0.20); Basophils % (auto) 0.1 %; Immature Granulocytes # (auto) 0.21 K/uL (0.01-0.20); Immature Granulocytes % (auto) 0.9 %; Lymphocytes # (auto) 1.02 K/uL (1.20-3.40); Lymphocytes % (auto) 4.4 %; Monocytes # (auto) 0.76 K/uL (0.11-0.59); Monocytes % (auto) 3.3 %; Neutrophils # (auto) 20.96 K/uL (1.40-6.50); Neutrophils % (auto) 91.3 %
--- NOTE | 2023-07-08 08:21 | Hospitalist Progress Note ---
Date of Service July 08, 2023 Assessment & Plan (1) Perforated abdominal viscus: Plan: pt with recent diagnosis of Ulcertive colitis, and had sessile polyp biopsied presented with free air, to OR 06/28/23 with colon resection, subtotal colectomy and ileostomy three areas of perforation were identified, abscess and feculent material seen Pt presented with sepsis from above, on stress steroids, caspofungin, zosyn Continue NGT per Primary service- remain NPO Started TPN on 07/01 - DAVID drain per surgery - Consider continuing prednisone for his UC with ulceration on lip Obtained ct scan of abd pelvis given worsening WBC: a LUQ fluid collection. This was drained by IR 07/06 LUQ Drain placed grew dailey sensitive pseudomonas Purulent fluid is being removed on 07/07 continue zoysn and caspofungin, consider change of zosyn if confusion continues add thiamine and check ua Acute blood loss anemia: Unsure of the exact cause, patient's hemoglobin has been downtrending, did transfuse one unit of PRBC. Stable on 07/05, above 8, (2) Hard of hearing: (3) Acute kidney injury: Plan: resolved continue volume replacement carefully with surgical loss and concern for ileostomy output disucssion of contrast nephropathy appreciate input from nephro Plan DVT PROPHYLAXIS - SCDS - Chemoprophylaxis Admission and Anticipated Discharge Date Admission Date: June 28, 2023 Subjective patient is some confusion although when confronted questioning does reveal he is oriented to person place and general time wonder if antibiotics or antifungals are causing some confusion. Recent biopsy is only grew Pseudomonas. Zosyn is noted to have some confusion is a side effect profile of function does not Physical Exam Physical Exam: patient is thin dry mucous membranes 25 pound weight loss during hospital stay abdomen is with dressing in place is soft nontender ostomy is functioning Results & Data Results & Data Vital Signs (Past 12 Hours) Vital Signs Temp Pulse Pulse Resp BP Pulse Ox O2 Del Method 07/08/23 08:12 97.4 F L 81 24 153/74 H 94 Nasal Cannula 07/08/23 03:40 97.5 F L 86 18 148/80 H 93 Nasal Cannula 07/08/23 00:00 97 H 07/07/23 23:19 98.1 F 91 H 20 152/81 H 91 Nasal Cannula 10/25/23 21:19 Nasal Cannula O2 Flow Rate 10/26/23 08:12 2 07/08/23 03:40 2.0 07/08/23 00:00 07/07/23 23:19 2 07/07/23 21:19 2 PG Care Time/CCT Total # of Minutes Spent Total Time Spent with Patient: Total time spent is greater than 50% in coordination of care (as documented) at patient's floor/unit and/or counseling patient: Coding Level of Care Code 30925 SUB INP/OBS CARE 2/35MIN Diagnoses Perforated abdominal viscus R19.8 Hard of hearing H91.90 Acute kidney injury N17.9
[2023-07-08] MEDS: NICOTINE 7 MG/24 HR TDSY TD SCH (09:54)
[2023-07-08] MEDS: HEPARIN SOD 5,000 UNIT/0.5 ML VIAL SQ SCH ×2 (10:04→20:14)
[2023-07-08] MEDS: PANTOprazole 40 MG in SYRINGE 0 ML IV SCH (10:45)
[2023-07-08] MEDS: CASPOFUNGIN 50 MG in SODIUM CHLORIDE 0.9% 250 ML IV SCH (10:45)
[2023-07-08] MEDS ORDERED: CASPOFUNGIN 50 MG in SODIUM CHLORIDE 0.9% 250 ML IV SCH (11:00)
[2023-07-08] MEDS ORDERED: [UNRECOGNIZED DRUG - OTHER] IV SCH (16:00)
[2023-07-08] MEDS ORDERED: CLINOLIPID 20% IV FAT EMULSION 250 ML IV SCH (16:00)
[2023-07-08] MEDS ORDERED: CENTRAL TPN IV SCH (16:00)
--- NOTE | 2023-07-08 17:26 | Surgery Progress Note ---
Date of Service July 08, 2023 Assessment & Plan (1) Ulcerative colitis: (2) Pancolitis: (3) Perforated abdominal viscus: (4) SIRS with acute organ dysfunction due to infectious process: Plan POD # 10 s/p ex lap , subtotal colectomy and ileostomy formation afebrile, vss postop pain minimal minimal liquid stool and gas in ileostomy cloudy serosanguineous/purulent drainage from inferior aspect of incision overnight. No skin dehiscence. repeat CT scan 07/05/23 with multiple large peritoneal fluid collections concerning for multiple intra-abdominal abscess now s/p IR drain placement culture showing pansensitive Pseudomonas aeruginosa leukocytosis of 22k today Plan: Continue clear liquids for now continue drain to gravity and LLQ drain to bulb suction continue pain management as needed continue IV antibiotics and antifungal continue dressing changes continue scds for dvt prophlyaxis continue medical management repeat am labs Admission and Anticipated Discharge Date Admission Date: June 28, 2023 Subjective patient see this morning around 7:30 am, confused. Nurse at bedside, has hearing aid available to help with ROS No severe abdominal pain, upper abdominal pain and low back pain nurse states little ostomy output so far today very weak only ate jello yesterday not much clear liquid intake Physical Exam Constitutional: + thin, + cachectic, + frail appearing and comfortable; no acute distress, not ill appearing and not combative ENMT: Ears: + hearing impairment Respiratory: normal respiratory effort; no respiratory distress Gastrointestinal (Abdomen): Inspection/Auscultation: abdomen normal to inspection and + abdominal surgical incision (c/d/i with patricia, still purulent/cloudy drainage from inferior aspect); abdomen not distended Percussion/Palpation: + abdomen tender (mild in upper abdomen bilaterally) and abdomen soft; no guarding and abdomen not rigid Ileostomy with little liquid stool output, not much gas this am ostomy beefy red purulent drainage in LUQ drainage bag, clear serous drainage in LLQ елена drain Skin: no rashes, warm and dry Psychiatric: Orientation: alert; + not oriented x 3 Results & Data Vital Signs (Past 12 Hours) Vital Signs Temp Pulse Resp BP Pulse Ox O2 Del Method O2 Flow Rate 07/08/23 16:29 36.8 C 67 20 136/86 96 Nasal Cannula 2 07/08/23 11:58 36.6 C 76 20 143/77 H 94 Nasal Cannula 2 07/08/23 08:00 Nasal Cannula 2 07/08/23 08:12 36.3 C L 81 24 153/74 H 94 Nasal Cannula 2 Laboratory Results 07/08/23 07/08/23 07/08/23 Range/Units 05:23 05:23 05:23 WBC 22.98 H (4.8-10.8) K/ul RBC 3.04 L (4.70-6.10) M/uL Hgb 8.8 L (14.0-18.0) g/dl Hct 26.9 L (42.0-52.0) % MCV 88.5 (80.0-100.0) fL MCH 28.9 (25.0-34.0) pg MCHC 32.7 (32.0-36.0) g/dL RDW Std Deviation 44.4 (36.4-46.3) fL RDW Coeff of Ashley 14.0 (11.5-14.5) % Plt Count 552 H (130-400) K/uL MPV 10.4 (9.4-12.4) fL Immature Gran % (Auto) 0.9 % Neut % (Auto) 91.3 % Lymph % (Auto) 4.4 % [place] % (Auto) 3.3 % Eos % (Auto) 0.0 % Baso % (Auto) 0.1 % Neut # (Auto) 20.96 H (1.40-6.50) K/uL Lymph # (Auto) 1.02 L (1.20-3.40) K/uL [place] # (Auto) 0.76 H (0.11-0.59) K/uL Eos # (Auto) 0.00 (0.00-0.50) K/uL Baso # (Auto) 0.03 (0.00-0.20) K/uL Immature Gran # (Auto) 0.21 H (0.01-0.20) K/uL Sodium 139 (136-145) mmol/L Potassium 3.8 (3.5-5.1) mmol/L Chloride 105 (98-107) mmol/L Carbon Dioxide 28 (21-32) mmol/L Anion Gap 6 (3-11) BUN 28 H (6-23) mg/dl Creatinine 0.77 (0.6-1.4) mg/dl Est Cr Clr Drug Dosing 84.5 ml/min Est GFR ( Amer) 119.2 ml/min Est GFR (Non-Af Amer) 102.9 ml/min BUN/Creatinine Ratio 36.4 H (10-20) Glucose 131 H (70-99(Fasting)) mg/dl Calcium 7.5 L (8.6-10.3) mg/dl Phosphorus 3.2 (2.5-4.9) mg/dl Magnesium 2.0 (1.7-2.4) mg/dl C-Reactive Protein 10.21 H (0-0.5) mg/dl Procalcitonin 0.42 (0-0.5) ng/ml Microbiology 07/06/23 12:45 Gram Stain - Final Abdomen, Left Upper Quadrant Aerobic and Anaerobic Culture - Preliminary Pseudomonas aeruginosa Gram positive cocci Gram negative bacilli
[2023-07-08] MEDS ORDERED: THIAMINE HCL 200 MG in SODIUM CHLORIDE 0.9% 50 ML IV STA (18:42)
[2023-07-08] MEDS: STOP CLINOLIPID SCH (22:24)
[2023-07-09] MEDS: PIPERACILLIN/TAZOBACTAM 4.5 GM in DEXTROSE 5% MINI-B 100 ML IV SCH ×3 (05:29→21:45)
[2023-07-09] MEDS: HEPARIN SOD 5,000 UNIT/0.5 ML VIAL SQ SCH ×2 (08:03→21:45)
[2023-07-09] MEDS: NICOTINE 7 MG/24 HR TDSY TD SCH (08:04)
[2023-07-09] MEDS: THIAMINE HCL 100 MG in SYRINGE 9 ML IV SCH (08:04)
[2023-07-09 08:14] LABS: Red Blood Count 2.71 M/uL (4.70-6.10)
[2023-07-09 08:15] LABS: Basophils # (auto) 0.02 K/uL (0.00-0.20); Basophils % (auto) 0.1 %; Eosinophils # (auto) 0.01 K/uL (0.00-0.50); Eosinophils % (auto) 0.1 %; Hematocrit (blood only) 24.1 % (42.0-52.0); Immature Granulocytes # (auto) 0.13 K/uL (0.01-0.20); Immature Granulocytes % (auto) 0.7 %; Lymphocytes # (auto) 0.99 K/uL (1.20-3.40); Lymphocytes % (auto) 5.4 %; Mean Corpuscular Hemoglobin 29.5 pg (25.0-34.0); Mean Corpuscular Hgb Conc 33.2 g/dL (32.0-36.0); Mean Corpuscular Volume 88.9 fL (80.0-100.0); Mean Platelet Volume 9.7 fL (9.4-12.4); Monocytes # (auto) 0.84 K/uL (0.11-0.59); Monocytes % (auto) 4.5 %; Neutrophils # (auto) 16.51 K/uL (1.40-6.50); Neutrophils % (auto) 89.2 %; Platelet Count 533 K/uL (130-400); RDW Standard Deviation 44.8 fL (36.4-46.3)
[2023-07-09 08:30] LABS: BUN Creatinine Ratio 42.4 (10-20); Calcium 7.2 mg/dl (8.6-10.3); Creatinine Clr Calc Pharmacy 102.3 ml/min; Est GFR (Non-African American) 109.6 ml/min; Phosphorus 3.1 mg/dl (2.5-4.9); Potassium 3.5 mmol/L (3.5-5.1)
[2023-07-09] MEDS: CASPOFUNGIN 50 MG in SODIUM CHLORIDE 0.9% 250 ML IV SCH (10:20)
[2023-07-09] MEDS: PANTOprazole 40 MG in SYRINGE 0 ML IV SCH (10:20)
--- NOTE | 2023-07-09 14:40 | Hospitalist Progress Note ---
Date of Service July 09, 2023 Assessment & Plan (1) Perforated abdominal viscus: Plan: pt with recent diagnosis of Ulcertive colitis, and had sessile polyp biopsied presented with free air, to OR 06/28/23 with colon resection, subtotal colectomy and ileostomy three areas of perforation were identified, abscess and feculent material seen 07/05/[address] scan of abd pelvis given worsening WBC: a LUQ fluid collection. This was drained by IR 07/06 LUQ Drain placed grew dailey sensitive pseudomonas Purulent fluid is being removed on 07/07 Pt presented with sepsis from above, on stress steroids, caspofungin, zosyn Started TPN on 07/01 continue zoysn and caspofungin, consider change of zosyn if confusion continues added thiamine with modest improvement of mental state, and ua is negative Encephalpahty is ? that is why trying thiamine, could be hospital delierium as discussion of loss of sleep, will try hs seroquel Acute blood loss anemia: Unsure of the exact cause, patient's hemoglobin has been downtrending, did transfuse one unit of PRBC. Stable (2) Hard of hearing: (3) Acute kidney injury: Plan: resolved continue volume replacement carefully with surgical loss and concern for ileostomy output disucssion of contrast nephropathy appreciate input from nephro Plan DVT PROPHYLAXIS - SCDS - Chemoprophylaxis Admission and Anticipated Discharge Date Admission Date: June 28, 2023 Subjective patient may be slightly improved after thiamine administration although he should be getting thiamine within his hyperalimentation. Patient is advance diet now to low residual. Patient does have some unusual thinking but has been in the hospital for 11 days with a significant weight loss. He is talking about now doing the procedure in the first place and that he is going through a bit of a challenge trying to understand his new physical limitations. Complains Physical Exam Physical Exam: patient is thin seems mentally more clear but still has some tangential thinking 25 pound weight loss during hospital stay moderate to severe protein calorie malnutrition abdomen is with dressing in place is soft nontender ostomy is functioning Results & Data Results & Data Vital Signs (Past 12 Hours) Vital Signs Temp Pulse Pulse Resp BP Pulse Ox O2 Del Method 07/09/23 11:01 97.9 F 79 18 130/85 94 Nasal Cannula 07/09/23 07:50 98.1 F 71 18 159/82 H 95 Nasal Cannula 07/09/23 07:20 74 07/09/23 07:13 Nasal Cannula 07/09/23 03:00 98.4 F 74 16 147/78 H 94 Nasal Cannula O2 Flow Rate 07/09/23 11:01 2 07/09/23 07:50 2 07/09/23 07:20 07/09/23 07:13 2 07/09/23 03:00 2 Laboratory Results reviewed CBC reviewed chemistry PG Care Time/CCT Total # of Minutes Spent Total Time Spent with Patient: Total time spent is greater than 50% in coordination of care (as documented) at patient's floor/unit and/or counseling patient: Coding Level of Care Code 07947 SUB INP/OBS CARE 2/35MIN Diagnoses Perforated abdominal viscus R19.8 Hard of hearing H91.90 Acute kidney injury N17.9
[2023-07-09] MEDS ORDERED: CLINOLIPID 20% IV FAT EMULSION 250 ML IV SCH (16:00)
[2023-07-09] MEDS ORDERED: [UNRECOGNIZED DRUG - OTHER] IV SCH (16:00)
[2023-07-09] MEDS ORDERED: CENTRAL TPN IV SCH (16:00)
[2023-07-09] MEDS ORDERED: QUEtiapine FUMARATE 25 MG TABLET PO ONE (21:00)
[2023-07-09] MEDS: STOP CLINOLIPID SCH (21:45)
[2023-07-10] MEDS: PIPERACILLIN/TAZOBACTAM 4.5 GM in DEXTROSE 5% MINI-B 100 ML IV SCH ×2 (05:29→14:16)
[2023-07-10 07:06] LABS: BUN Creatinine Ratio 35.9 (10-20); Calcium 7.5 mg/dl (8.6-10.3); Creatinine Clr Calc Pharmacy 87.7 ml/min; Est GFR (African American) 118.6 ml/min; Est GFR (Non-African American) 102.3 ml/min; Phosphorus 2.9 mg/dl (2.5-4.9); Potassium 3.9 mmol/L (3.5-5.1)
[2023-07-10] MEDS: HEPARIN SOD 5,000 UNIT/0.5 ML VIAL SQ SCH ×2 (09:17→19:56)
[2023-07-10] MEDS: THIAMINE HCL 100 MG in SYRINGE 9 ML IV SCH (09:17)
[2023-07-10] MEDS: NICOTINE 7 MG/24 HR TDSY TD SCH (09:18)
--- NOTE | 2023-07-10 10:26 | Surgery Progress Note ---
Date of Service July 10, 2023 Assessment & Plan (1) Ileostomy in place: Plan: Not much to add from a surgery perspective. The ileostomy is functioning. We will likely need to reimage early next week. Etiology of his delirium unclear although likely multifactorial Admission and Anticipated Discharge Date Admission Date: June 28, 2023 Subjective Patient seen. Unusual ideation. This is the first time I am meeting him but the guards tell me he has been like this all week. At times he does make sense. He is tolerating a diet but does not have very good appetite Physical Exam Physical Exam: Alert but confused. He is in no acute distress His abdomen is soft. The ileostomy looks good with good function. drain with scant serous output Results & Data Vital Signs (Past 12 Hours) Vital Signs Temp Pulse Resp BP Pulse Ox O2 Del Method O2 Flow Rate 07/10/23 07:05 36.7 C 78 19 145/78 H 97 Nasal Cannula 2 07/10/23 02:22 36.6 C 86 18 148/87 H 92 Nasal Cannula 2 07/09/23 23:00 37.0 C 96 H 20 140/82 93 Nasal Cannula PG Care Time/CCT Total # of Minutes Spent Total Time Spent with Patient: Total time spent is greater than 50% in coordination of care (as documented) at patient's floor/unit and/or counseling patient: Coding Level of Care Code 55301 Post Operative Follow-Up Diagnoses Ileostomy in place Z93.2
[2023-07-10] MEDS: CASPOFUNGIN 50 MG in SODIUM CHLORIDE 0.9% 250 ML IV SCH (11:00)
[2023-07-10] MEDS: PANTOprazole 40 MG in SYRINGE 0 ML IV SCH (11:00)
--- NOTE | 2023-07-10 14:19 | Hospitalist Progress Note ---
Date of Service July 10, 2023 Assessment & Plan (1) Encephalopathy: Plan: patient with progressive encephalopathy attempted to initiate thiamine therapy despite his TPN without good success. Attempted some at bedtime Seroquel without cessation of hallucinations med review patient has not received significant or even any recent benzodiazepines or opiates. Patient will have a CT of his head CT of abdomen pelvis we will use Zyprexa ODT for behavior control check an a.m. cortisol, check ammonia (2) Perforated abdominal viscus: Plan: pt with recent diagnosis of Ulcertive colitis, and had sessile polyp biopsied presented with free air, to OR 06/28/23 with colon resection, subtotal colectomy and ileostomy three areas of perforation were identified, abscess and feculent material seen 07/05/[address] scan of abd pelvis given worsening WBC: a LUQ fluid collection. This was drained by IR 07/06 LUQ Drain placed grew dailey sensitive pseudomonas Purulent fluid is being removed on 07/07 Pt presented with sepsis from above, was on stress steroids, with progressive delirium stopped caspofungin and changed zosyn to cefepime Started TPN on 07/01 added thiamine with modest improvement of mental state, and ua is negative Encephalopathy is ? that is why trying thiamine, could be hospital delirium as discussion of loss of sleep, worse with seroquel CT head, A/P check cortisol and ammonia Acute blood loss anemia: Unsure of the exact cause, patient's hemoglobin has been downtrending, did transfuse one unit of PRBC. Stable (3) Hard of hearing: (4) Acute kidney injury: Plan: resolved continue volume replacement carefully with surgical loss and concern for ileostomy output disucssion of contrast nephropathy appreciate input from nephro Plan DVT PROPHYLAXIS - SCDS - Chemoprophylaxis Admission and Anticipated Discharge Date Admission Date: June 28, 2023 Subjective Patient is hallucinating and confused to worsen throughout the week when she tries at the bedside only few bites of been taken no focus worsening of abdominal discomfort ostomy is functioning, recent UA negative for infection trying at bedtime antipsychotics for behavioral control without improvement Physical Exam Physical Exam: delirium encephalopathic picking at his sheets knows he is in the hospital not oriented to time card exam is regular lungs are decreased at the bases abdomen is with normal bowel sounds soft ostomy in the right sided abdomen extremities are without edema Results & Data Results & Data Vital Signs (Past 12 Hours) Vital Signs Temp Pulse Pulse Resp BP Pulse Ox O2 Del Method 07/10/23 08:00 Nasal Cannula 07/10/23 08:00 88 07/10/23 10:57 98.4 F 79 19 150/83 H 96 Nasal Cannula 07/10/23 07:05 98.1 F 78 19 145/78 H 97 Nasal Cannula 07/10/23 02:22 97.9 F 86 18 148/87 H 92 Nasal Cannula O2 Flow Rate 07/10/23 08:00 2 07/10/23 08:00 07/10/23 10:57 2 07/10/23 07:05 2 07/10/23 02:22 2 Laboratory Results reviewed CBC reviewed chemistry PG Care Time/CCT Total # of Minutes Spent Total Time Spent with Patient: Total time spent is greater than 50% in coordination of care (as documented) at patient's floor/unit and/or counseling patient: Coding Level of Care Code 37669 SUB INP/OBS CARE 3/50MIN Diagnoses Encephalopathy G93.40 Perforated abdominal viscus R19.8 Hard of hearing H91.90 Acute kidney injury N17.9
[2023-07-10] MEDS: CEFEPIME 2,000 MG in SYRINGE 0 ML IV SCH ×2 (14:45→19:56)
[2023-07-10] MEDS ORDERED: CENTRAL TPN IV SCH (16:00)
[2023-07-10] MEDS ORDERED: [UNRECOGNIZED DRUG - OTHER] IV SCH (16:00)
[2023-07-10] MEDS ORDERED: CLINOLIPID 20% IV FAT EMULSION 250 ML IV SCH (16:00)
[2023-07-10] MEDS ORDERED: OPTIRAY 320 100ml IV ONE (16:38)
--- NOTE | 2023-07-10 16:55 | CT Scan Report ---
CT head/brain wo con CLINICAL HISTORY: 53 years-old Male with confusion. Acutely altered mental status TECHNIQUE: Multiple axial CT images of the head were obtained without contrast. A dose lowering tech nique was utilized adhering to the principles of ALARA. COMPARISON: None. FINDINGS: No acute intracranial hemorrhage, midline shift, intracranial mass, hydrocephalus, territorial ischem ia or abnormal extra-axial collection. The calvarium is intact. The paranasal sinuses, mastoid air cells, and middle ear cavities are clear . IMPRESSION: No acute intracranial abnormality. ACT 112: Negative or not required by law. The above report was generated using voice recognition software. It may contain grammatical, syntax o r spelling errors. Electronically signed by: Abdi Hirsch M.D. 07/10/2023 4:53 PM
--- NOTE | 2023-07-10 17:03 | CT Scan Report ---
ABDOMEN AND PELVIS CT WITH IV AND ORAL CONTRAST CT DOSE: 1359.37 mGy.cm HISTORY: Acute generalized abdominal pain pt with encephalopathy, previous ruptured bowel TECHNIQUE: Multiaxial CT images of the abdomen and pelvis were performed following the IV administrat ion of 93 cc of Optiray and oral contrast. A dose lowering technique was utilized adhering to the pr inciples of LYN. COMPARISON STUDY: 07/05/2023 FINDINGS: Unchanged layering pleural effusions with dependent bibasilar consolidation. Cardiomegaly w ith small pericardial effusion. No pneumatosis. Again noted is moderate pneumoperitoneum which has mildly improved. Postoperative willie nges are again noted compatible with laparotomy and subtotal colectomy right lower quadrant ileostomy . There is no evidence for a bowel obstruction. Multiple loculated peritoneal fluid collections are p resent. There is mild peritoneal enhancement. The larger collections again likely communicate with on e another. The largest collections are within the upper quadrants. Left upper quadrant pocket of flui d measures 16 x 14 cm, stable. There is a loculated 4.9 x 2.6 cm fluid collection along the gastric f undus, previously 6.4 x 3.8 cm . A 7.1 x 2.4 cm anterior pelvic fluid collection previously measured 9.3 x 3 cm. A 7.1 x 4.6 cm pelvic fluid collection previously measured 6.9 x 5.3 cm Surgical drainage catheter is again noted within this collection. Persistent gastric wall thickening is mildly improve d. The stomach is decompressed. The liver, spleen, adrenal glands , mildly distended gallbladder and pancreas are unremarkable. There is no biliary or pancreatic ductal dilatation. There is heterogeneous enhancement of the kidneys whi ch is similar to prior. There is no hydronephrosis. A Mondragon balloon and gas within the bladder noted. There is diffuse anasarca. A small amount of fluid within the subcutaneous tissues of the laparotomy site are noted. No acute fracture identified. IMPRESSION: 1. Postoperative changes of subtotal colectomy with right lower quadrant ileostomy and surgical drain age catheter. 2. Multiple loculated air and fluid filled collections as above are stable to mildly decreased in siz e from 07/05/2023 with persistent mildly decreased pneumoperitoneum. 3. Persistent edematous gastric wall thickening which is also mildly improved. 4. Nonspecific heterogeneous enhancement of the kidneys again noted. Correlate with urinalysis. 5. Fluid overload. 6. Additional findings as above. ACT 112: Negative or not required by law. The above report was generated using voice recognition software. It may contain grammatical, syntax o r spelling errors. Electronically signed by: Abdi Hirsch M.D. 07/10/2023 5:01 PM
[2023-07-10] MEDS: oxyCODONE/ACETAMINOPHEN 5mg/325mg TAB PO PRN (19:56)
[2023-07-10] MEDS: FAMOTIDINE 20 MG in SYRINGE 3 ML IV SCH (19:57)
[2023-07-10] MEDS: STOP CLINOLIPID SCH (22:41)
[2023-07-11] MEDS ORDERED: QUEtiapine FUMARATE 25 MG TABLET PO STA (01:47)
--- NOTE | 2023-07-11 01:48 | Communication Note ---
Date of Service: July 11, 2023 for his [facility] Nursing staff adamant that Seroquel 25mg po the previous night worked extremely well for the patient encephalopathy/hallucinations. Will give another dose tonight as patient appears agitated/delirious. If works well, would consider this nightly. Resident Activity Tracking Resident Involvement: Resident Care Provided Care Provided: Adult [facility] Medicine
[2023-07-11] MEDS: CEFEPIME 2,000 MG in SYRINGE 0 ML IV SCH ×3 (06:17→21:26)
[2023-07-11 07:43] LABS: Hematocrit (blood only) 27.7 % (42.0-52.0); Mean Corpuscular Hemoglobin 28.8 pg (25.0-34.0); Mean Corpuscular Hgb Conc 32.5 g/dL (32.0-36.0); Mean Corpuscular Volume 88.5 fL (80.0-100.0); Mean Platelet Volume 9.6 fL (9.4-12.4); Platelet Count 722 K/uL (130-400); RDW Coefficient of Variation 14.5 % (11.5-14.5); RDW Standard Deviation 46.1 fL (36.4-46.3); Red Blood Count 3.13 M/uL (4.70-6.10); White Blood Count 17.77 K/ul (4.8-10.8)
[2023-07-11 08:10] LABS: BUN Creatinine Ratio 36.4 (10-20); Creatinine Clr Calc Pharmacy 88.7 ml/min; Est GFR (African American) 119.2 ml/min; Est GFR (Non-African American) 102.9 ml/min; Magnesium 2.1 mg/dl (1.7-2.4); Phosphorus 3.7 mg/dl (2.5-4.9); Potassium 4.8 mmol/L (3.5-5.1)
[2023-07-11] MEDS: HEPARIN SOD 5,000 UNIT/0.5 ML VIAL SQ SCH ×2 (08:31→21:25)
[2023-07-11] MEDS: FAMOTIDINE 20 MG in SYRINGE 3 ML IV SCH ×2 (08:36→21:25)
--- NOTE | 2023-07-11 09:45 | Surgery Progress Note ---
Date of Service July 11, 2023 Assessment & Plan (1) Ileostomy in place: Plan: GI tract appears to be functioning. No acute surgical issues. Medicine working up encephalopathy. We will continue to follow closely. (2) Encephalopathy: Admission and Anticipated Discharge Date Admission Date: June 28, 2023 Subjective Patient seen with guard and nurse at bedside. He has been somnolent ever since Seroquel given last night for agitation. According to them he ate about 50% of his dinner last night. Physical Exam Physical Exam: Not arousable/somnolent Abdomen is soft. Ileostomy looks good with good output. DAVID with yellow serous fluid Results & Data Vital Signs (Past 12 Hours) Vital Signs Temp Pulse Pulse Resp BP Pulse Ox O2 Del Method 07/11/23 08:00 76 07/11/23 06:56 36.5 C 81 19 156/86 H 91 Room Air 07/11/23 02:38 36.7 C 80 16 155/70 H 94 Room Air 07/11/23 01:54 Nasal Cannula 07/10/23 22:39 36.5 C 84 18 142/83 H 94 Room Air O2 Flow Rate 07/11/23 08:00 07/11/23 06:56 07/11/23 02:38 07/11/23 01:54 2 07/10/23 22:39 PG Care Time/CCT Total # of Minutes Spent Total Time Spent with Patient: Total time spent is greater than 50% in coordination of care (as documented) at patient's floor/unit and/or counseling patient: Coding Level of Care Code 89206 Post Operative Follow-Up Diagnoses Ileostomy in place Z93.2 Encephalopathy G93.40
[2023-07-11] MEDS ORDERED: AMOXICILLIN 500 MG CAP PO SCH (11:00)
--- NOTE | 2023-07-11 12:37 | Hospitalist Progress Note ---
Date of Service July 11, 2023 Assessment & Plan (1) Encephalopathy: Plan: patient with progressive encephalopathy attempted to initiate thiamine therapy despite his TPN without good success. serology does not reveal a direction of why he has his delirium. Continuing at bedtime Seroquel hopes of changing Zosyn to cefepime may improve his Zosyn does have confusion listed as one of his adverse drug reactions. CT of his head CT of abdomen pelvis Did not show any new findings persistent fluid collections in the abdomen are slightly improved. use Zyprexa ODT for behavior control (2) Perforated abdominal viscus: Plan: pt with recent diagnosis of Ulcerative colitis, and had sessile polyp biopsied presented with free air, to OR 06/28/23 with colon resection, subtotal colectomy and ileostomy three areas of perforation were identified, abscess and feculent material seen Zyprexa changed to cefepime to continue treatment of Pseudomonas seen on culture change prompted by hopes that may improve his delirium 07/05/[address] scan of abd pelvis given worsening WBC: a LUQ fluid collection. This was drained by IR 07/06 LUQ Drain placed grew dailey sensitive pseudomonas Purulent fluid is being removed on 07/07 continues to drain in the DAVID Pt presented with sepsis from above, was on stress steroids, with progressive delirium stopped caspofungin and changed zosyn to cefepime Started TPN on 07/01 Patient eating 50% plus of his meals we will stop TPN on 07/11/2023 added thiamine with modest improvement of mental state, and ua is negative Encephalopathy is ? that is why trying thiamine, could be hospital delirium as discussion of loss of sleep, try to use Seroquel to aid with sleeping Acute blood loss anemia: Unsure of the exact cause, patient's hemoglobin has been downtrending, did transfuse one unit of PRBC. Stable (3) Hard of hearing: (4) Acute kidney injury: Plan: resolved continue volume replacement carefully with surgical loss and concern for ileostomy output disucssion of contrast nephropathy appreciate input from nephro Plan DVT PROPHYLAXIS - SCDS - Chemoprophylaxis Admission and Anticipated Discharge Date Admission Date: June 28, 2023 Subjective reportedly the patient had a rough night and did not receive his Seroquel till 3 AM subsequently been sleeping most of the day. He did awaken when I came in the room he made eye contact he is extremely hard of hearing he nodded went back to sleep. He appeared to be comfortable. Yesterday's evaluation not reveal any changes with CT of head abdomen pelvis shows improving fluid collections. Physical Exam Physical Exam: He is comfortable his cardiac exam is regular his lungs are diminished at the bases abdomen is uncomfortable to exam bowel sounds are present ostomy is functioning Results & Data Results & Data Vital Signs (Past 12 Hours) Vital Signs Temp Pulse Pulse Resp BP Pulse Ox O2 Del Method 07/11/23 11:03 97.9 F 78 19 155/84 H 97 Room Air 07/11/23 08:00 76 07/11/23 06:56 97.7 F 81 19 156/86 H 91 Room Air 07/11/23 02:38 98.1 F 80 16 155/70 H 94 Room Air 07/11/23 01:54 Nasal Cannula O2 Flow Rate 07/11/23 11:03 07/11/23 08:00 07/11/23 06:56 07/11/23 02:38 07/11/23 01:54 [address] head and CT abdomen pelvis from 1 day prior medication with dietary about stopping TPN on 07/11/2023 reviewed CBC reviewed chemistry reviewed a.m. cortisol sample appropriate rise reviewed a.m. ammonia not elevated PG Care Time/CCT Total # of Minutes Spent Total Time Spent with Patient: Total time spent is greater than 50% in coordination of care (as documented) at patient's floor/unit and/or counseling patient: Coding Level of Care Code 98103 SUB INP/OBS CARE 2/35MIN Diagnoses Encephalopathy G93.40 Perforated abdominal viscus R19.8 Hard of hearing H91.90 Acute kidney injury N17.9
[2023-07-11] MEDS: QUEtiapine FUMARATE 25 MG TABLET PO SCH (21:25)
[2023-07-12] MEDS: CEFEPIME 2,000 MG in SYRINGE 0 ML IV SCH ×3 (05:43→21:32)
[2023-07-12 06:34] LABS: BUN Creatinine Ratio 32.2 (10-20); Calcium 7.9 mg/dl (8.6-10.3); Creatinine Clr Calc Pharmacy 78.5 ml/min; Est GFR (African American) 113.4 ml/min; Est GFR (Non-African American) 97.8 ml/min
--- NOTE | 2023-07-12 08:59 | Hospitalist Progress Note ---
Date of Service July 12, 2023 Assessment & Plan (1) Encephalopathy: Plan: patient with progressive encephalopathy attempted to initiate thiamine therapy despite his TPN without good success. serology does not reveal a direction of why he has his delirium. Continuing at bedtime Seroquel hopes of changing Zosyn to cefepime may improve his Zosyn does have confusion listed as one of his adverse drug reactions, has borne out as the patient is improved since Zosyn has been transitioned to cefepime. CT of his head CT of abdomen pelvis Did not show any new findings persistent fluid collections in the abdomen are slightly improved. Given polymicrobial leroy ure of abdominal abscesses will have infectious disease consultation use Zyprexa ODT for behavior control (2) Perforated abdominal viscus: Plan: pt with recent diagnosis of Ulcerative colitis, and had sessile polyp biopsied presented with free air, to OR 06/28/23 with colon resection, subtotal colectomy and ileostomy three areas of perforation were identified, abscess and feculent material seen Zyprexa changed to cefepime to continue treatment of Pseudomonas seen on culture change prompted by hopes that may improve his delirium 07/05/[address] scan of abd pelvis given worsening WBC: a LUQ fluid collection. This was drained by IR 07/06 LUQ Drain placed grew dailey sensitive pseudomonas ,recent result for VRE, adding Dapto and flagyl. Purulent fluid is being removed on 07/07 continues to drain in the DAVID Pt presented with sepsis from above, was on stress steroids, with progressive d elirium stopped caspofungin and changed zosyn to cefepime Started TPN on 07/01 Patient eating 50% plus of his meals we will stop TPN on 07/11/2023 added thiamine with modest improvement of mental state, and ua is negative try to use Seroquel to aid with sleeping Acute blood loss anemia: Unsure of the exact cause, patient's hemoglobin has been downtrending, did tra nsfuse one unit of PRBC. Stable (3) Hard of hearing: (4) Acute kidney injury: Plan: resolved continue volume replacement carefully with surgical loss and concern for ileostomy output disucssion of contrast nephropathy appreciate input from nephro Plan DVT PROPHYLAXIS - SCDS - Chemoprophylaxis Admission and Anticipated Discharge Date Admission Date: June 28, 2023 Patient significantly debilitated after prolonged hospital stay and significant weight loss were referred for [facility] for rehabilitation prior to returning the present Subjective Patient improved since discontinuing the Zosyn therapy. Continues on triple antimicrobial regimen awaiting infectious disease consultation for recommendations Physical Exam Physical Exam: He is comfortable his cardiac exam is regular his lungs are diminished at the bases abdomen is uncomfortable to exam bowel sounds are present ostomy is functioning Results & Data Results & Data Vital Signs (Past 12 Hours) Vital Signs Temp Pulse Pulse Resp BP Pulse Ox O2 Del Method 07/12/23 07:05 98.8 F 85 14 143/84 H 98 Room Air 07/11/23 21:25 Room Air 07/11/23 21:28 98.2 F 91 H 18 133/83 98 Room Air PG Care Time/CCT Total # of Minutes Spent Total Time Spent with Patient: Total time spent is greater than 50% in coordination of care (as documented) at patient's floor/unit and/or counseling patient: Coding Level of Care Code 34803 SUB INP/OBS CARE 2/35MIN Diagnoses Encephalopathy G93.40 Perforated abdominal viscus R19.8 Hard of hearing H91.90 Acute kidney injury N17.9
[2023-07-12] MEDS: FAMOTIDINE 20 MG in SYRINGE 3 ML IV SCH ×2 (09:08→21:32)
[2023-07-12] MEDS: metroNIDAZOLE 500 MG/100 ML BAG IV SCH ×2 (09:08→16:37)
[2023-07-12] MEDS: HEPARIN SOD 5,000 UNIT/0.5 ML VIAL SQ SCH ×2 (09:11→21:10)
[2023-07-12] MEDS ORDERED: [UNRECOGNIZED DRUG - OTHER] IM ONE (10:45)
[2023-07-12] MEDS: DAPTOmycin 475 MG in SYRINGE 0 ML IV SCH (10:56)
[2023-07-12] MEDS: oxyCODONE/ACETAMINOPHEN 5mg/325mg TAB PO PRN ×2 (11:00→21:49)
--- NOTE | 2023-07-12 12:21 | Surgery Progress Note ---
Date of Service July 12, 2023 Assessment & Plan (1) Ulcerative colitis: (2) Pancolitis: (3) Perforated abdominal viscus: (4) SIRS with acute organ dysfunction due to infectious process: Plan POD # 13 s/p ex lap , subtotal colectomy and ileostomy formation afebrile, vss postop pain minimal more liquid stool and gas in ileostomy drain in place; CT yesterday with improving collections leukocytosis decreasing Plan: advance diet as tolerated continue drains continue pain management as needed continue IV antibiotics and antifungal continue dressing changes continue scds for dvt prophlyaxis continue medical management repeat am labs staple removal tomorrow Admission and Anticipated Discharge Date Admission Date: June 28, 2023 Subjective doing better today. More lucid. Alert and answering questions. Denies significant abdominal pain. Tolerating diet. Ostomy working. Physical Exam Physical Exam: AFVSS NAD, A&O x3 Abdomen: Soft, mild TTP DAVID drain with serous output PERC drain with purulent drainage Ostomy pink and viable with gas and stool in bag [place] in incision C/D/I Results & Data Vital Signs (Past 12 Hours) Vital Signs Temp Pulse Resp BP Pulse Ox O2 Del Method 07/12/23 08:00 Room Air 07/12/23 07:05 37.1 C 85 14 143/84 H 98 Room Air Laboratory Results 07/12/23 Range/Units 05:43 Sodium 136 (136-145) mmol/L Potassium 4.0 (3.5-5.1) mmol/L Chloride 105 (98-107) mmol/L Carbon Dioxide 25 (21-32) mmol/L Anion Gap 6 (3-11) BUN 28 H (6-23) mg/dl Creatinine 0.87 (0.6-1.4) mg/dl Est Cr Clr Drug Dosing 78.5 ml/min Est GFR ( Amer) 113.4 ml/min Est GFR (Non-Af Amer) 97.8 ml/min BUN/Creatinine Ratio 32.2 H (10-20) Glucose 99 (70-99(Fasting)) mg/dl Calcium 7.9 L (8.6-10.3) mg/dl Total Creatine Kinase 12 L (30-223) U/L
--- NOTE | 2023-07-12 14:45 | Infectious Disease Consult ---
Date of Consultation July 12, 2023 Assessment & Plan (1) Encephalopathy: (2) Sepsis: (3) S/P colon resection: (4) Pneumoperitoneum: (5) Ulcerative colitis: (6) Perforated abdominal viscus: Plan This is a 53 yo prisoner recently diagnosed with ulcerative pancolitis on 06/15 via colonoscopy and biopsy , started on prednisone and mesalamine who presents with abdominal pain and vomiting. CTAb showed perforated viscous with pneumoperitoneum possibly 2/2 pancolitis and toxic megacolon. He underwent exploratory laparotomy, subtotal colectomy, and Ileostomy on 06/28. He was found to have multiple areas of perforation w/in the cecum/transverse/sigmoid colon with feculent peritonitis with multiple abscesses throughout the abdominal cavity. DAVID drains placed. Abd fluid cx + for Bry albicans/dubliniensis, MSSA and PsA. He received Zosyn and Caspofungin. His hospital was course c/b persistent leukocytosis and progressive encephalopathy. Repeat CTAB showed persistent collections in the abdomen He underwent LUQ fluid collection drain by IR with drain placement on 07/08 which grew 2 strain s of PSA and VRE. Abx were switched to cefepime, flagyl and Daptomycin . It was felt that Zosyn may be contributing to confusion Head CT was unremarkable. Admission WBC 21 K now 17 k His m ost recent CTAb from 07/10 sows multiple stable to mildly decreased insize loculated air and fluid filled collection with mildly decreased pneumoperitoneum and persistent gastric wall thickening. ID consulted for antibiotic choice and duration for peritonitis with perforation. Micro BC 06/28 sterile Ab fluid 06/28 g/s many gnr, gpc, gpr , many yeast cx PSA (pans), MSSA, bry alb/dub ab fluid 07/06 g/s 0 org, many wbc cxVRE, PsA panS , PsA#2 UC 07/08 sterile Abx/ Antfungals Cefepime 06/28, 07/11-ongoing flagyl 06/28, 07/12- ongoig Zosyn 06/28-07/09 Caspofungin 06/29-07/10 Dapto 07/12 # Polymicrobial Feculent Peritonitis s/p ruptured viscous # Multiple abdominal abscess # Ulcerative Pancolitis # Persistent Leukocytosis Continued Leukocytosis likely secondary to abdominal process with multiple abscesses. CX+ for VRE, MSSA. PanS PSa and Bry alb/dub Recommendations. Continue cefepime 2g iv q8 h continue Flagyl 500mg IV 2 8 hrs Cotinue Daptomycin 4 mg /kg iv [id number] if Leukocytosis persists , add back antifungl coverage with Fluconazole 400 mg po q24 hours Final duration of abx will be based on resolution of abscesses on imaging and clinical improvement. If no improvement, he may need additional source control/ drainage. Thank you for this consultation. ID will continue to follow. Claudy Vargas MD, MPH Infectious Disease [facility] Call [phone] with questions , Consultation Information This patient recommendation is based on a telemedicine consult request which was completed asynchronously through chart review and information provided by the primary physician. The patient was not seen or examined today. The evaluation is consultative in nature and all patient care and treatment decisions can either be accepted or rejected by the patient's primary hospital-based treating physician using their own independent medical judgment for their patient. Hand Method Lasting Machine Operator contact information: Please call [facility] Center . (Phone Number For Physician Use Only) Time Spent Reviewing Chart: 31+ minutes History of Present Illness Reason for Consultation: antibiotic choice and duration for peritonitis with perforation. Requesting Physician: Tj Keller MD Attending Physician: Tj Keller MD History of Present Illness This is a 53 yo prisoner recently diagnosed with ulcerative pancolitis on 06/15 via colonoscopy and biopsy , started on prednisone and mesalamine who presents with abdominal pain and vomiting. CTAb showed perforated viscous with pneumoperitoneum possibly 2/2 pancolitis and toxic megacolon. He underwent exploratory laparotomy, subtotal colectomy, and Ileostomy on 06/28. He was found to have multiple areas of perforation w/in the cecum/transverse/sigmoid colon with feculent peritonitis with multiple abscesses throughout the abdominal cavity. DAVID drains placed. Abd fluid cx + for Bry albicans/dubliniensis, MSSA and PsA. He received Zosyn and Caspofungin. His hospital was course c/b persistent leukocytosis and progressive encephalopathy. Repeat CTAB showed persistent collections in the abdomen He underwent LUQ fluid collection drain by IR with drain placement on 07/08 which grew 2 strain s of PSA and VRE. Abx were switched to cefepime, flagyl and Daptomycin . It was felt that Zosyn may be contributing to confusion Head CT was unremarkable. Admission WBC 21 K now 17 k His m ost recent CTAb from 07/10 sows multiple stable to mildly decreased insize loculated air and fluid filled collection with mildly decreased pneumoperitoneum and persistent gastric wall thickening. ID consulted for antibiotic choice and duration for peritonitis with perforation. Allergies Allergy/AdvReac Type Severity Reaction Status Date / Time No Known Allergies Allergy Verified 06/14/23 10:21 Home Medications Medication Instructions Recorded Confirmed Type mesalamine 4 gram/60 mL enema 4 g (60 mL) UT HS 1 month #1,800 mL 06/22/23 06/28/23 Rx mesalamine 800 mg tablet,delayed 1,600 mg PO TID 1 month #180 tabs 06/22/23 06/28/23 Rx release prednisone 20 mg tablet 40 mg PO DAILY 1 month #60 tabs 06/22/23 06/28/23 Rx Patient History Medical History Abnormal colonoscopy Encounter for pre-operative examination Hard of hearing Ileostomy in place Ulcerative colitis Surgical History S/P colon resection Social History Smoking Status: Unknown if ever smoked Tobacco Type: Cigarettes Hx Alcohol Use: No Hx Substance Use: No Preferred Language: Indian Communication Ability: Effective 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 Feels Safe at Home: Yes Assistive Devices: Hearing Aid - Left and Hearing Aid - Right Physical Exam Physical Exam: chart reviewed. Results & Data Vital Signs (Past 12 Hours) Vital Signs Temp Pulse Resp BP BP Pulse Ox O2 Del Method 07/12/23 14:39 36.6 C 100 H 16 136/86 95 Room Air 07/12/23 08:00 Room Air 07/12/23 07:05 37.1 C 85 14 143/84 H 98 Room Air Laboratory Results Laboratory Results - last 48 hr 07/11/23 07/11/23 07/11/23 07:17 07:17 07:17 WBC 17.77 H RBC 3.13 L Hgb 9.0 L Hct 27.7 L MCV 88.5 MCH 28.8 MCHC 32.5 RDW Std Deviation 46.1 RDW Coeff of Ashley 14.5 Plt Count 722 H MPV 9.6 Sodium 138 Potassium 4.8 D Chloride 105 Carbon Dioxide 29 Anion Gap 4 BUN 28 H Creatinine 0.77 Est Cr Clr Drug Dosing 88.7 Est GFR ( Amer) 119.2 Est GFR (Non-Af Amer) 102.9 BUN/Creatinine Ratio 36.4 H Glucose 121 H Calcium 8.0 L Phosphorus 3.7 Magnesium 2.1 Ammonia Total Creatine Kinase Cortisol AM Sample 24.13 H 07/11/23 07/12/23 07:17 05:43 WBC RBC Hgb Hct MCV MCH MCHC RDW Std Deviation RDW Coeff of Ashley Plt Count MPV Sodium 136 Potassium 4.0 Chloride 105 Carbon Dioxide 25 Anion Gap 6 BUN 28 H Creatinine 0.87 Est Cr Clr Drug Dosing 78.5 Est GFR ( Amer) 113.4 Est GFR (Non-Af Amer) 97.8 BUN/Creatinine Ratio 32.2 H Glucose 99 Calcium 7.9 L Phosphorus Magnesium Ammonia 16.0 L Total Creatine Kinase 12 L Cortisol AM Sample Diagnostic Findings Microbiology 07/06/23 12:45 Abdomen, Left Upper Quadrant Gram Stain - Final 07/06/23 12:45 Abdomen, Left Upper Quadrant Aerobic and Anaerobic Culture - Final Pseudomonas aeruginosa Enterococcus faecium VRE Pseudomonas aeruginosa#2 07/08/23 21:25 Urine,Clean Catch Urine Culture - Final No growth - less than 1,000 colonies/mL. 06/28/23 18:30 Blood Aerobic Blood Culture - Final No growth in Aerobic bottle after 5 days. 06/28/23 18:30 Blood Anaerobic Blood Culture - Final No growth in Anaerobic bottle after 5 days. 06/28/23 12:58 Blood Aerobic Blood Culture - Final No growth in Aerobic bottle after 5 days. 06/28/23 12:58 Blood Anaerobic Blood Culture - Final No growth in Anaerobic bottle after 5 days. 06/28/23 15:33 Abdomen Gram Stain - Final 06/28/23 15:33 Abdomen Aerobic and Anaerobic Culture - Final Pseudomonas aeruginosa Bry albicans/dubliniensis Staphylococcus aureus Abdomen/Pelvis CT 07/10/23 14:[address] WITH IV AND ORAL CONTRAST CT DOSE: 1359.37 mGy.cm HISTORY: Acute generalized abdominal pain pt with encephalopathy, previous ruptured bowel TECHNIQUE: Multiaxial CT images of the abdomen and pelvis were performed following the IV administration of 93 cc of Optiray and oral contrast. A dose lowering technique was utilized adhering to the principles of ALARA. COMPARISON STUDY: 07/05/2023 FINDINGS: Unchanged layering pleural effusions with dependent bibasilar consolidation. Cardiomegaly with small pericardial effusion. No pneumatosis. Again noted is moderate pneumoperitoneum which has mildly improved. Postoperative changes are again noted compatible with laparotomy and subtotal colectomy right lower quadrant ileostomy. There is no evidence for a bowel obstruction. Multiple loculated peritoneal fluid collections are present. There is mild peritoneal enhancement. The larger collections again likely communicate with one another. The largest collections are within the upper quadrants. Left upper quadrant pocket of fluid measures 16 x 14 cm, stable. There is a loculated 4.9 x 2.6 cm fluid collection along the gastric fundus, previously 6.4 x 3.8 cm . A 7.1 x 2.4 cm anterior pelvic fluid collection previously measured 9.3 x 3 cm. A 7.1 x 4.6 cm pelvic fluid collection previously measured 6.9 x 5.3 cm Surgical drainage catheter is again noted within this collection. Persistent gastric wall thickening is mildly improved. The stomach is decompressed. The liver, spleen, adrenal glands , mildly distended gallbladder and pancreas are unremarkable. There is no biliary or pancreatic ductal dilatation. There is heterogeneous enhancement of the kidneys which is similar to prior. There is no hydronephrosis. A [place] balloon and gas within the bladder noted. There is diffuse anasarca. A small amount of fluid within the subcutaneous tissues of the laparotomy site are noted. No acute fracture identified. IMPRESSION: 1. Postoperative changes of subtotal colectomy with right lower quadrant ileostomy and surgical drainage catheter. 2. Multiple loculated air and fluid filled collections as above are stable to mildly decreased in size from 07/05/2023 with persistent mildly decreased pneumoperitoneum. 3. Persistent edematous gastric wall thickening which is also mildly improved. 4. Nonspecific heterogeneous enhancement of the kidneys again noted. Correlate with urinalysis. 5. Fluid overload. 6. Additional findings as above. ACT 112: Negative or not required by law. The above report was generated using voice recognition software. It may contain grammatical, syntax or spelling errors. Electronically signed by: Abdi Hirsch M.D. 07/10/2023 5:[address] 07/10/23 14:01 CT head/brain wo con CLINICAL HISTORY: 53 years-old Male with confusion. Acutely altered mental status TECHNIQUE: Multiple axial CT images of the head were obtained without contrast. A dose lowering technique was utilized adhering to the principles of ALARA. COMPARISON: None. FINDINGS: No acute intracranial hemorrhage, midline shift, intracranial mass, hydrocephal us, territorial ischemia or abnormal extra-axial collection. The calvarium is intact. The paranasal sinuses, mastoid air cells, and middle ear cavities are clear. IMPRESSION: No acute intracranial abnormality. ACT 112: Negative or not required by law. The above report was generated using voice recognition software. It may contain grammatical, syntax or spelling errors. Electronically signed by: Abdi Hirsch M.D. 07/10/2023 4:53 PM Medications Administered Home Medications Medication Instructions Recorded Confirmed Last Taken mesalamine 4 gram/60 mL enema 4 g (60 mL) UT HS 1 month #1,800 mL 06/22/23 06/28/23 Unknown mesalamine 800 mg tablet,delayed 1,600 mg PO TID 1 month #180 tabs 06/22/23 06/28/23 Unknown release prednisone 20 mg tablet 40 mg PO DAILY 1 month #60 tabs 06/22/23 06/28/23 Unknown Active Medications Generic Name Dose Route Start Last Admin Trade Name Freq PRN Reason Stop Dose Admin Heparin Sodium (Beef Lung) 5 ml 07/05/23 14:28 07/12/23 14:34 Heparin 10 Unit/Ml 5 Ml Flush FLUSH 08/04/23 14:27 5 ml PRN PRN Administration Flush Heparin Sodium (Porcine) 5,000 units 07/08/23 09:00 07/12/23 09:11 Heparin Sod 5,000 Unit/0.5 Ml Vial SQ 08/07/23 08:59 5,000 units Q12 HERNESTO Administration Hydromorphone HCl 0.25 - 0.5 mg 06/29/23 10:15 07/07/23 08:49 Hydromorphone Inj 0.5 Mg/0.5 Ml Syr IV 07/13/23 10:14 0.5 mg Q4H PRN Administration Pain Cefepime HCl 2,000 mg/ Syringe 20 mls @ 5 mls/min 07/10/23 14:15 07/12/23 14:33 IV 07/20/23 14:14 5 mls/min Q8H HERNESTO Administration Protocol Famotidine 20 mg/ Syringe 5 mls @ 2.5 mls/min 07/10/23 21:00 07/12/23 09:08 IV 08/09/23 20:59 2.5 mls/min BID HERNESTO Administration Daptomycin 475 mg/ Syringe 9.5 mls @ 4.75 mls/min 07/12/23 08:00 07/12/23 10:56 IV 07/22/23 07:59 4.75 mls/min Q24H HERNESTO Administration Protocol Metronidazole 500 mg in 100 mls @ 100 mls/hr 07/12/23 08:00 07/12/23 10:23 Flagyl IV 07/22/23 07:59 Infused Q8H HERNESTO Infusion Miscellaneous 1 each 07/06/23 08:59 07/12/23 10:22 Remove Nicoderm Patch N/A 08/05/23 08:58 Not Given [id number] [facility] Ondansetron HCl 4 mg 06/29/23 10:08 07/07/23 08:49 Ondansetron Inj 2 Mg/Ml 2 Ml Vial IV 07/29/23 10:07 4 mg Q6H PRN Administration Nausea And Vomiting Oxycodone/Acetaminophen 1 tab 07/05/23 14:09 07/12/23 11:00 Oxycodone/Acetaminophen 5mg/325mg Tab PO 07/19/23 14:08 1 tab Q4H PRN Administration moderate pain Quetiapine Fumarate 25 mg 07/11/23 21:00 07/11/23 21:25 Quetiapine Fumarate 25 Mg Tablet PO 08/10/23 20:59 25 mg HS HERNESTO Administration
[2023-07-12] MEDS: QUEtiapine FUMARATE 25 MG TABLET PO SCH (21:10)
[2023-07-13] MEDS: metroNIDAZOLE 500 MG/100 ML BAG IV SCH ×4 (00:50→23:42)
[2023-07-13] MEDS: CEFEPIME 2,000 MG in SYRINGE 0 ML IV SCH ×3 (05:56→21:05)
[2023-07-13] MEDS: FAMOTIDINE 20 MG in SYRINGE 3 ML IV SCH ×2 (07:48→21:05)
[2023-07-13] MEDS: DAPTOmycin 475 MG in SYRINGE 0 ML IV SCH (07:48)
[2023-07-13] MEDS: HEPARIN SOD 5,000 UNIT/0.5 ML VIAL SQ SCH ×2 (09:40→21:06)
--- NOTE | 2023-07-13 15:41 | Surgery Progress Note ---
Date of Service July 13, 2023 Assessment & Plan (1) Ulcerative colitis: (2) Pancolitis: (3) Perforated abdominal viscus: (4) SIRS with acute organ dysfunction due to infectious process: Plan POD # 14 s/p ex lap , subtotal colectomy and ileostomy formation afebrile, vss postop pain minimal more liquid stool and gas in ileostomy drain in place; CT Wednesday with improving collections leukocytosis decreasing Plan: advance diet as tolerated continue drains continue pain management as needed continue IV antibiotics and antifungal continue dressing changes continue scds for dvt prophlyaxis continue medical management repeat am labs remove patricia and DAVID drain (bulb suction, not IR drain) Admission and Anticipated Discharge Date Admission Date: June 28, 2023 Subjective continuing to feel better; eating about 50% of regular diet; no nausea/vomiting; ostomy working Physical Exam Physical Exam: AFVSS NAD, A&O x3 Abdomen: Soft, mild TTP DAVID drain with serous output PERC drain with purulent drainage Ostomy pink and viable with gas and stool in bag [place] in incision C/D/I Results & Data Vital Signs (Past 12 Hours) Vital Signs Temp Pulse Resp BP Pulse Ox O2 Del Method 07/13/23 08:00 Room Air 07/13/23 07:16 36.9 C 89 16 149/86 H 97 Room Air
--- NOTE | 2023-07-13 16:03 | Hospitalist Progress Note ---
Date of Service July 13, 2023 Assessment & Plan (1) Encephalopathy: Plan: encephalopathy improved after changing Zosyn to cefepime ( Zosyn does have confusion listed as one of his adverse drug reactions,) CT of his head CT of abdomen pelvis Did not show any new findings persistent fluid collections in the abdomen are slightly improved. 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 This was drained by IR 07/06 LUQ Drain placed grew dailey sensitive pseudomonas ,recent result for VRE, adding Dapto and flagyl. Purulent fluid is being removed on 07/07 surgical DAVID drain removed 07/13, keeping IR drain Pt presented with sepsis from above, was on stress steroids, with progressive delirium stopped caspofungin and changed zosyn to cefepime Started TPN on 07/01 Patient eating 50% plus of his meals we will stop TPN on 07/11/2023 added thiamine with modest improvement of mental state, and ua is negative stop seroquel add melatonin Acute blood loss anemia: Unsure of the exact cause, patient's hemoglobin has been downtrending, did transfuse one unit of PRBC. Stable (3) Hard of hearing: (4) Acute kidney injury: Plan: resolved continue volume replacement carefully with surgical loss and concern for ileostomy output disucssion of contrast nephropathy appreciate input from nephro Plan DVT PROPHYLAXIS - SCDS - Chemoprophylaxis Admission and Anticipated Discharge Date Admission Date: June 28, 2023 Subjective pt has some confusion but not as profound as in the past personally discussed case with surgeon pt himself has no focal complaints Physical Exam Physical Exam: Patient is awake and oriented he is somewhat confused at times but he is very hard of hearing this may impact his understanding of the questions asked Exam is regular lungs are clear abdomen functioning ostomy he is soft and nontender Results & Data Results & Data Vital Signs (Past 12 Hours) Vital Signs Temp Pulse Resp BP Pulse Ox O2 Del Method 07/13/23 08:00 Room Air 07/13/23 07:16 98.4 F 89 16 149/86 H 97 Room Air PG Care Time/CCT Total # of Minutes Spent Total Time Spent with Patient: Total time spent is greater than 50% in coordination of care (as documented) at patient's floor/unit and/or counseling patient: Coding Level of Care Code 83140 SUB INP/OBS CARE 2/35MIN Diagnoses Encephalopathy G93.40 Perforated abdominal viscus R19.8 Hard of hearing H91.90 Acute kidney injury N17.9
[2023-07-13] MEDS: oxyCODONE/ACETAMINOPHEN 5mg/325mg TAB PO PRN (16:10)
[2023-07-13] MEDS: MELATONIN 3 MG TAB PO SCH (21:06)
[2023-07-14] MEDS: ONDANSETRON INJ 2 MG/ML 2 ML VIAL IV PRN ×2 (05:41→13:40)
[2023-07-14] MEDS: CEFEPIME 2,000 MG in SYRINGE 0 ML IV SCH ×3 (05:43→21:01)
[2023-07-14 06:49] LABS: Hemoglobin 8.6 g/dl (14.0-18.0); Mean Corpuscular Hemoglobin 28.3 pg (25.0-34.0); Mean Corpuscular Hgb Conc 31.9 g/dL (32.0-36.0); Mean Corpuscular Volume 88.8 fL (80.0-100.0); Mean Platelet Volume 9.6 fL (9.4-12.4); Platelet Count 564 K/uL (130-400); RDW Coefficient of Variation 14.6 % (11.5-14.5); RDW Standard Deviation 46.5 fL (36.4-46.3); Red Blood Count 3.04 M/uL (4.70-6.10); White Blood Count 17.05 K/ul (4.8-10.8)
[2023-07-14 07:17] LABS: BUN Creatinine Ratio 33.7 (10-20); Calcium 7.7 mg/dl (8.6-10.3); Creatinine Clr Calc Pharmacy 74.3 ml/min; Est GFR (African American) 115.6 ml/min; Est GFR (Non-African American) 99.8 ml/min; Phosphorus 2.9 mg/dl (2.5-4.9); Potassium 3.6 mmol/L (3.5-5.1)
[2023-07-14] MEDS: DAPTOmycin 475 MG in SYRINGE 0 ML IV SCH (08:33)
[2023-07-14] MEDS: HEPARIN SOD 5,000 UNIT/0.5 ML VIAL SQ SCH ×2 (08:33→21:00)
[2023-07-14] MEDS: FAMOTIDINE 20 MG in SYRINGE 3 ML IV SCH ×2 (08:33→21:00)
[2023-07-14] MEDS: metroNIDAZOLE 500 MG/100 ML BAG IV SCH ×3 (08:33→22:45)
--- NOTE | 2023-07-14 13:20 | Infectious Disease Progress Nt ---
Date of Service July 14, 2023 Assessment & Plan (1) Encephalopathy: (2) Sepsis: (3) S/P colon resection: (4) Pneumoperitoneum: (5) Ulcerative colitis: (6) Perforated abdominal viscus: Plan This is a 53 yo prisoner recently diagnosed with ulcerative pancolitis on 06/15 via colonoscopy and biopsy , started on prednisone and mesalamine who presents with abdominal pain and vomiting. CTAb showed perforated viscous with pneumoperitoneum possibly 2/2 pancolitis and toxic megacolon. He underwent exploratory laparotomy, subtotal colectomy, and Ileostomy on 06/28. He was found to have multiple areas of perforation w/in the cecum/transverse/sigmoid colon with feculent peritonitis with multiple abscesses throughout the abdominal cavity. DAVID drains placed. Abd fluid cx + for Bry albicans/dubliniensis, MSSA and PsA. He received Zosyn and Caspofungin. His hospital was course c/b persistent leukocytosis and progressive encephalopathy. Repeat CTAB showed persistent collections in the abdomen He underwent LUQ fluid collection drain by IR with drain placement on 07/08 which grew 2 strain s of PSA and VRE. Abx were switched to cefepime, flagyl and Daptomycin . It was felt that Zosyn may be contributing to confusion Head CT was unremarkable. Admission WBC 21 K now 17 k His m ost recent CTAb from 07/10 sows multiple stable to mildly decreased insize loculated air and fluid filled collection with mildly decreased pneumoperitoneum and persistent gastric wall thickening. ID consulted for antibiotic choice and duration for peritonitis with perforation. Micro BC 06/28 sterile Ab fluid 06/28 g/s many gnr, gpc, gpr , many yeast cx PSA (pans), MSSA, bry alb/dub Ab fluid 07/06 g/s 0 org, many wbc cx VRE, PsA panS , PsA#2 UC 07/08 sterile Abx/ Antifungals Cefepime 06/28, 07/11-ongoing flagyl 06/28, 07/12- ongoing Zosyn 06/28-07/09 Caspofungin 06/29-07/10 Dapto 07/12-ongoing # Polymicrobial Feculent Peritonitis s/p ruptured viscous # Multiple abdominal abscess # Ulcerative Pancolitis # Persistent Leukocytosis Continued Leukocytosis likely secondary to abdominal process with multiple abscesses. CX+ for VRE, MSSA. PanS PSa and Bry alb/dub On 07/14 exam, has purulent drainage from wound sp suture removal and purulent drainage in LUQ drain Recommendations. Continue cefepime 2g iv q8 h continue Flagyl 500mg IV 2 8 hrs Cotinue Daptomycin 4 mg /kg iv [id number] He has purulent drainage infrom wound and in drain,continued leukocytosis ADDED back antifungal coverage with Fluconazole 400 mg po q24 hours Final duration of abx will be based on resolution of abscesses on imaging and clinical improvement. If no improvement, he may need additional source control/ drainage. ID will continue to follow. Claudy Vargas MD, MPH Infectious Disease [facility], ID Division Call [phone] with questions , Admission and Anticipated Discharge Date Admission Date: June 28, 2023 Subjective Subsequent visit was provided via telemedicine using two-way real-time interactive telecommunication between the patient and the telemedicine provider. For the duration of the visit, the provider was performing the assessment from a different facility than the patient. This includesuse of bluetooth stethoscope forauscultationperformed by the telepresenter that the telemedicine provider can hear if described in the physical exam. School Psychologist Assistant contact information: Please call [facility] . (Phone Number For Physician Use Only) After establishing a telemedicine visit, patient was: Patient was verified with two unique identifiers Time Spent with Patient: Subsequent => 25 min he complains of abdominal tenderness WBC 17K, wbc 564k Physical Exam Physical Exam: Gen- lying bed, hard of hearing Skin multiple tatoos Abd- soft, Tender, ostomy . Midline wound sp suture removal ; purulent drainage. LUQ drain with purulent drainage in bag Ext- No edema, RUE PICC in place, R ankle cuffed to bed Neuro-AAO,poor historian, Results & Data Vital Signs (Past 12 Hours) Vital Signs Temp Pulse Resp BP Pulse Ox O2 Del Method 07/14/23 08:00 Room Air 07/14/23 07:53 36.5 C 110 H 16 128/82 97 Room Air Laboratory Results Short CBC 07/14/23 Range/Units 06:01 WBC 17.05 H (4.8-10.8) K/ul Hgb 8.6 L (14.0-18.0) g/dl Hct 27.0 L (42.0-52.0) % Plt Count 564 H (130-400) K/uL BMP 07/14/23 06:01 Sodium 138 Potassium 3.6 Chloride 108 H Carbon Dioxide 23 BUN 28 H Creatinine 0.83 Glucose 73 Calcium 7.7 L Diagnostic Findings Microbiology 07/06/23 12:45 Abdomen, Left Upper Quadrant Gram Stain - Final 07/06/23 12:45 Abdomen, Left Upper Quadrant Aerobic and Anaerobic Culture - Final Pseudomonas aeruginosa Enterococcus faecium VRE Pseudomonas aeruginosa#2 07/08/23 21:25 Urine,Clean Catch Urine Culture - Final No growth - less than 1,000 colonies/mL. 06/28/23 18:30 Blood Aerobic Blood Culture - Final No growth in Aerobic bottle after 5 days. 06/28/23 18:30 Blood Anaerobic Blood Culture - Final No growth in Anaerobic bottle after 5 days. 06/28/23 12:58 Blood Aerobic Blood Culture - Final No growth in Aerobic bottle after 5 days. 06/28/23 12:58 Blood Anaerobic Blood Culture - Final No growth in Anaerobic bottle after 5 days. 06/28/23 15:33 Abdomen Gram Stain - Final 06/28/23 15:33 Abdomen Aerobic and Anaerobic Culture - Final Pseudomonas aeruginosa Bry albicans/dubliniensis Staphylococcus aureus Medications Administered Home Medications Medication Instructions Recorded Confirmed Last Taken mesalamine 4 gram/60 mL enema 4 g (60 mL) OK HS 1 month #1,800 mL 06/22/23 06/28/23 Unknown mesalamine 800 mg tablet,delayed 1,600 mg PO TID 1 month #180 tabs 06/22/23 06/28/23 Unknown release prednisone 20 mg tablet 40 mg PO DAILY 1 month #60 tabs 06/22/23 06/28/23 Unknown Active Medications Generic Name Dose Route Start Last Admin Trade Name Freq PRN Reason Stop Dose Admin Heparin Sodium (Beef Lung) 5 ml 07/05/23 14:28 07/14/23 13:40 Heparin 10 Unit/Ml 5 Ml Flush FLUSH 08/04/23 14:27 5 ml PRN PRN Administration Flush Heparin Sodium (Porcine) 5,000 units 07/08/23 09:00 07/14/23 08:33 Heparin Sod 5,000 Unit/0.5 Ml Vial SQ 08/07/23 08:59 5,000 units Q12 HERNESTO Administration Cefepime HCl 2,000 mg/ Syringe 20 mls @ 5 mls/min 07/10/23 14:15 07/14/23 13:40 IV 07/20/23 14:14 5 mls/min Q8H HERNESTO Administration Protocol Famotidine 20 mg/ Syringe 5 mls @ 2.5 mls/min 07/10/23 21:00 07/14/23 08:33 IV 08/09/23 20:59 2.5 mls/min BID HERNESTO Administration Daptomycin 475 mg/ Syringe 9.5 mls @ 4.75 mls/min 07/12/23 08:00 07/14/23 08:33 IV 07/22/23 07:59 4.75 mls/min Q24H HERNESTO Administration Protocol Metronidazole 500 mg in 100 mls @ 100 mls/hr 07/12/23 08:00 07/14/23 16:38 Flagyl IV 07/22/23 07:59 100 mls/hr Q8H HERNESTO Administration Melatonin 3 mg 07/13/23 21:00 07/13/23 21:06 Melatonin 3 Mg Tab PO 08/12/23 20:59 3 mg HS HERNESTO Administration Ondansetron HCl 4 mg 06/29/23 10:08 07/14/23 13:40 Ondansetron Inj 2 Mg/Ml 2 Ml Vial IV 07/29/23 10:07 4 mg Q6H PRN Administration Nausea And Vomiting Oxycodone/Acetaminophen 1 tab 07/05/23 14:09 07/13/23 16:10 Oxycodone/Acetaminophen 5mg/325mg Tab PO 07/19/23 14:08 1 tab Q4H PRN Administration moderate pain
--- NOTE | 2023-07-14 16:49 | Hospitalist Progress Note ---
Date of Service July 14, 2023 Assessment & Plan (1) Encephalopathy: Plan: encephalopathy improved after changing Zosyn to cefepime ( Zosyn does have confusion listed as one of his adverse drug reactions,) CT of his head CT of abdomen pelvis Did not show any new findings persistent fluid collections in the abdomen are slightly improved. 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 or confusion ID recommends if leukocytosis persist add back fluconazole for cov erage duration has not been determined likely would repeat imaging after a fairly extended period of time to determine if intra-abdominal abscesses are receding this likely may be 1 week use Zyprexa ODT for behavior control has not been needed (2) Perforated abdominal viscus: Plan: pt with recent diagnosis of Ulcerative colitis, and had sessile polyp biopsied presented with free air, to OR 06/28/23 with colon resection, subtotal colectomy and ileostomy three areas of perforation were identified, abscess and feculent material seen Zyprexa changed to cefepime to continue treatment of Pseudomonas seen on culture change prompted by hopes that may improve his delirium 07/05/[address] scan of abd pelvis given worsening WBC: a LUQ fluid collection. This was drained by IR 07/06 LUQ Drain placed grew dailey sensitive pseudomonas ,recent result for VRE, adding Dapto and flagyl. Purulent fluid is being removed on 07/07 surgical DAVID drain removed 07/13, keeping IR drain Pt presented with sepsis from above, was on stress steroids, with progressive delirium stopped caspofungin and changed zosyn to cefepime Started TPN on 07/01 Patient eating 50% plus of his meals we will stop TPN on 07/11/2023 added thiamine with modest improvement of mental state, and ua is negative stop seroquel add melatonin Acute blood loss anemia: Unsure of the exact cause, patient's hemoglobin has been downtrending, did transfuse one unit of PRBC. Stable moderate to severe protein calorie malnutrition from extended postoperative state and recent GI surgery. Patient having nutritional supplements of boost added (3) Hard of hearing: (4) Acute kidney injury: Plan: resolved continue volume replacement carefully with surgical loss and concern for ileostomy output disucssion of contrast nephropathy appreciate input from nephro Plan DVT PROPHYLAXIS - SCDS - Chemoprophylaxis Admission and Anticipated Discharge Date Admission Date: June 28, 2023 Subjective Mr. Deleon's confusion has improved with discontinuation of at bedtime Seroquel in favor of melatonin. Continues to be bothered by some abdominal pain which he describes as a squeezing sensation. Physical Exam Physical Exam: pt is very CHITIMACHA abd is soft bowel sounds present and ostomy functioning Results & Data Results & Data Vital Signs (Past 12 Hours) Vital Signs Temp Pulse Resp BP Pulse Ox O2 Del Method 07/14/23 15:40 98.2 F 99 H 16 134/81 99 Room Air 07/14/23 08:00 Room Air 07/14/23 07:53 97.7 F 110 H 16 128/82 97 Room Air Laboratory Results Reviewed CBC reviewed chemistry PG Care Time/CCT Total # of Minutes Spent Total Time Spent with Patient: Total time spent is greater than 50% in coordination of care (as documented) at patient's floor/unit and/or counseling patient: Coding Level of Care Code 38775 SUB INP/OBS CARE 2/35MIN Diagnoses Encephalopathy G93.40 Perforated abdominal viscus R19.8 Hard of hearing H91.90 Acute kidney injury N17.9
[2023-07-14] MEDS: FLUCONAZOLE 100 MG TAB PO SCH (21:00)
[2023-07-14] MEDS: MELATONIN 3 MG TAB PO SCH (21:01)
[2023-07-15] MEDS: CEFEPIME 2,000 MG in SYRINGE 0 ML IV SCH ×3 (05:09→23:00)
[2023-07-15] MEDS: metroNIDAZOLE 500 MG/100 ML BAG IV SCH ×3 (09:39→23:00)
[2023-07-15] MEDS: FAMOTIDINE 20 MG in SYRINGE 3 ML IV SCH ×2 (09:39→20:19)
[2023-07-15] MEDS: DAPTOmycin 475 MG in SYRINGE 0 ML IV SCH (09:39)
[2023-07-15] MEDS: FLUCONAZOLE 100 MG TAB PO SCH (09:50)
[2023-07-15] MEDS: HEPARIN SOD 5,000 UNIT/0.5 ML VIAL SQ SCH ×2 (09:53→20:19)
--- NOTE | 2023-07-15 16:12 | Infectious Disease Progress Nt ---
Date of Service July 15, 2023 Assessment & Plan (1) Encephalopathy: (2) Sepsis: (3) S/P colon resection: (4) Pneumoperitoneum: (5) Ulcerative colitis: (6) Perforated abdominal viscus: Plan This is a 53 yo prisoner recently diagnosed with ulcerative pancolitis on 06/15 via colonoscopy and biopsy , started on prednisone and mesalamine who presents with abdominal pain and vomiting. CTAb showed perforated viscous with pneumoperitoneum possibly 2/2 pancolitis and toxic megacolon. He underwent exploratory laparotomy, subtotal colectomy, and Ileostomy on 06/28. He was found to have multiple areas of perforation w/in the cecum/transverse/sigmoid colon with feculent peritonitis with multiple abscesses throughout the abdominal cavity. DAVID drains placed. Abd fluid cx + for Bry albicans/dubliniensis, MSSA and PsA. He received Zosyn and Caspofungin. His hospital was course c/b persistent leukocytosis and progressive encephalopathy. Repeat CTAB showed persistent collections in the abdomen He underwent LUQ fluid collection drain by IR with drain placement on 07/08 which grew 2 strain s of PSA and VRE. Abx were switched to cefepime, flagyl and Daptomycin . It was felt that Zosyn may be contributing to confusion Head CT was unremarkable. Admission WBC 21 K now 17 k His m ost recent CTAb from 07/10 sows multiple stable to mildly decreased insize loculated air and fluid filled collection with mildly decreased pneumoperitoneum and persistent gastric wall thickening. ID consulted for antibiotic choice and duration for peritonitis with perforation. Micro BC 06/28 sterile Ab fluid 06/28 g/s many gnr, gpc, gpr , many yeast cx PSA (pans), MSSA, bry alb/dub Ab fluid 07/06 g/s 0 org, many wbc cx VRE, PsA panS , PsA#2 UC 07/08 sterile Abx/ Antifungals Cefepime 06/28, 07/11-ongoing flagyl 06/28, 07/12- ongoing Zosyn 06/28-07/09 Caspofungin 06/29-07/10 Dapto 07/12-ongoing Flucon 07/14- ongoing # Polymicrobial Feculent Peritonitis s/p ruptured viscous # Multiple abdominal abscess # Ulcerative Pancolitis # Persistent Leukocytosis Continued Leukocytosis likely secondary to abdominal process with multiple abscesses. CX+ for VRE, MSSA. PanS PSa and Bry alb/dub On 07/14 exam, has purulent drainage from wound sp suture removal and purulent drainage in LUQ drain Recommendations. Continue cefepime 2g iv q8 h continue Flagyl 500mg IV 2 8 hrs Cotinue Daptomycin 4 mg /kg iv [id number] Fluconazole 400 mg po q24 hours, added back antifungal coverage as he had continued purulent drainage infrom wound and in drain and persistent leukocytosis Final duration of abx will be based on resolution of abscesses on imaging and clinical improvement. If no improvement, he may need additional source control/ drainage. Given persistent leukocytosis despite broad abx and restart of antifungals , would repeat CTAB on 07/16 or 07/17 ~ 1 week after last CTAB done on 07/10 ID will continue to follow. Claudy Vargas MD, MPH Infectious Disease [facility], ID Division Call [phone] with questions , Admission and Anticipated Discharge Date Admission Date: June 28, 2023 Subjective This patient recommendation is based on a telemedicine consult request which was completed asynchronously through chart review and information provided by the primary physician. The patient was not seen or examined today. The evaluation is consultative in nature and all patient care and treatment decisions can either be accepted or rejected by the patient's primary hospital-based treating physician using their own independent medical judgment for their patient. Time Spent Reviewing Chart: 21 - 30 minutes WBc 17.05. plts 564 on on 07/14 No Cbc today Afebrile , Results & Data Vital Signs (Past 12 Hours) Vital Signs Temp Pulse Resp BP Pulse Ox O2 Del Method 07/15/23 14:40 36.5 C 89 16 136/86 98 Room Air 07/15/23 08:44 36.5 C 99 H 16 128/81 98 Room Air Laboratory Results Laboratory Results - last 48 hr 07/14/23 06:01 WBC 17.05 H RBC 3.04 L Hgb 8.6 L Hct 27.0 L MCV 88.8 MCH 28.3 MCHC 31.9 L RDW Std Deviation 46.5 H RDW Coeff of Ashley 14.6 H Plt Count 564 H MPV 9.6 Sodium 138 Potassium 3.6 Chloride 108 H Carbon Dioxide 23 Anion Gap 7 BUN 28 H Creatinine 0.83 Est Cr Clr Drug Dosing 74.3 Est GFR ( Amer) 115.6 Est GFR (Non-Af Amer) 99.8 BUN/Creatinine Ratio 33.7 H Glucose 73 Calcium 7.7 L Phosphorus 2.9 Diagnostic Findings Microbiology 07/06/23 12:45 Abdomen, Left Upper Quadrant Gram Stain - Final 07/06/23 12:45 Abdomen, Left Upper Quadrant Aerobic and Anaerobic Culture - Final Pseudomonas aeruginosa Enterococcus faecium VRE Pseudomonas aeruginosa#2 07/08/23 21:25 Urine,Clean Catch Urine Culture - Final No growth - less than 1,000 colonies/mL. 06/28/23 18:30 Blood Aerobic Blood Culture - Final No growth in Aerobic bottle after 5 days. 06/28/23 18:30 Blood Anaerobic Blood Culture - Final No growth in Anaerobic bottle after 5 days. 06/28/23 12:58 Blood Aerobic Blood Culture - Final No growth in Aerobic bottle after 5 days. 06/28/23 12:58 Blood Anaerobic Blood Culture - Final No growth in Anaerobic bottle after 5 days. 06/28/23 15:33 Abdomen Gram Stain - Final 06/28/23 15:33 Abdomen Aerobic and Anaerobic Culture - Final Pseudomonas aeruginosa Bry albicans/dubliniensis Staphylococcus aureus Medications Administered Home Medications Medication Instructions Recorded Confirmed Last Taken mesalamine 4 gram/60 mL enema 4 g (60 mL) IN HS 1 month #1,800 mL 06/22/23 06/28/23 Unknown mesalamine 800 mg tablet,delayed 1,600 mg (2 x 800 mg) PO TID 1 06/22/23 06/28/23 Unknown release month #180 tabs prednisone 20 mg tablet 40 mg (2 x 20 mg) PO DAILY 1 month 06/22/23 06/28/23 Unknown #60 tabs Active Medications Generic Name Dose Route Start Last Admin Trade Name Freq PRN Reason Stop Dose Admin Fluconazole 400 mg 07/14/23 17:30 07/15/23 09:50 Fluconazole 100 Mg Tab PO 07/24/23 17:29 400 mg DAILY HERNESTO Administration Heparin Sodium (Beef Lung) 5 ml 07/05/23 14:28 07/15/23 14:08 Heparin 10 Unit/Ml 5 Ml Flush FLUSH 08/04/23 14:27 5 ml PRN PRN Administration Flush Heparin Sodium (Porcine) 5,000 units 07/08/23 09:00 07/15/23 09:53 Heparin Sod 5,000 Unit/0.5 Ml Vial SQ 08/07/23 08:59 5,000 units Q12 HERNESTO Administration Cefepime HCl 2,000 mg/ Syringe 20 mls @ 5 mls/min 07/10/23 14:15 07/15/23 14:08 IV 07/20/23 14:14 5 mls/min Q8H HERNESTO Administration Protocol Famotidine 20 mg/ Syringe 5 mls @ 2.5 mls/min 07/10/23 21:00 07/15/23 09:39 IV 08/09/23 20:59 2.5 mls/min BID HERNESTO Administration Daptomycin 475 mg/ Syringe 9.5 mls @ 4.75 mls/min 07/12/23 08:00 07/15/23 09:39 IV 07/22/23 07:59 4.75 mls/min Q24H HERNESTO Administration Protocol Metronidazole 500 mg in 100 mls @ 100 mls/hr 07/12/23 08:00 07/15/23 11:12 Flagyl IV 07/22/23 07:59 Infused Q8H HERNESTO Infusion Melatonin 3 mg 07/13/23 21:00 07/14/23 21:01 Melatonin 3 Mg Tab PO 08/12/23 20:59 3 mg HS HERNESTO Administration Ondansetron HCl 4 mg 06/29/23 10:08 07/14/23 13:40 Ondansetron Inj 2 Mg/Ml 2 Ml Vial IV 07/29/23 10:07 4 mg Q6H PRN Administration Nausea And Vomiting Oxycodone/Acetaminophen 1 tab 07/05/23 14:09 07/13/23 16:10 Oxycodone/Acetaminophen 5mg/325mg Tab PO 07/19/23 14:08 1 tab Q4H PRN Administration moderate pain
--- NOTE | 2023-07-15 16:59 | Surgery Progress Note ---
Date of Service July 15, 2023 Assessment & Plan (1) Ulcerative colitis: (2) Pancolitis: (3) Perforated abdominal viscus: (4) SIRS with acute organ dysfunction due to infectious process: Plan POD # 16 s/p ex lap , subtotal colectomy and ileostomy formation afebrile, vss postop pain minimal more liquid stool and gas in ileostomy drain in place; CT Wednesday with improving collections leukocytosis persists at 17k Plan: advance diet as tolerated continue drain continue pain management as needed continue IV antibiotics and antifungal continue dressing changes continue scds for dvt prophlyaxis continue medical management repeat am labs probable repeat CT scan tomorrow Admission and Anticipated Discharge Date Admission Date: June 28, 2023 Subjective Doing well. Tolerating diet. Eating more today. Feeling stronger, walking the halls. No nausea or vomiting. No fevers Physical Exam Physical Exam: AFVSS NAD, A&O x3 Abdomen: Soft, mild TTP DAVID drain with serous output PERC drain with purulent drainage Ostomy pink and viable with gas and stool in bag [place] in incision C/D/I Results & Data Vital Signs (Past 12 Hours) Vital Signs Temp Pulse Resp BP Pulse Ox O2 Del Method 07/15/23 14:40 36.5 C 89 16 136/86 98 Room Air 07/15/23 08:44 36.5 C 99 H 16 128/81 98 Room Air (1) Ulcerative colitis Ulcerative colitis location: ulcerative pancolitis Digestive disease complication type: with abscess Qualified Code(s): K51.014 - Ulcerative (chronic) pancolitis with abscess
[2023-07-15] MEDS: MELATONIN 3 MG TAB PO SCH (20:19)
--- NOTE | 2023-07-15 20:52 | Hospitalist Progress Note ---
Date of Service July 15, 2023 Assessment & Plan (1) Encephalopathy: Plan: encephalopathy improved after changing Zosyn to cefepime ( Zosyn does have confusion listed as one of his adverse drug reactions,) CT of his head CT of abdomen pelvis Did not show any new findings persistent fluid collections in the abdomen are slightly improved. 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 or confusion ID recommends if leukocytosis persist add back fluconazole for cov erage duration has not been determined likely would repeat imaging after a fairly extended period of time to determine if intra-abdominal abscesses are receding this likely may be 1 week use Zyprexa ODT for behavior control has not been needed appears improved on 07/15 (2) Perforated abdominal viscus: Plan: pt with recent diagnosis of Ulcerative colitis, and had sessile polyp biopsied presented with free air, to OR 06/28/23 with colon resection, subtotal colectomy and ileostomy three areas of perforation were identified, abscess and feculent material seen Zyprexa changed to cefepime to continue treatment of Pseudomonas seen on culture change prompted by hopes that may improve his delirium 07/05/[address] scan of abd pelvis given worsening WBC: a LUQ fluid collection. This was drained by IR 07/06 LUQ Drain placed grew dailey sensitive pseudomonas ,recent result for VRE, adding Dapto and flagyl. Purulent fluid is being removed on 07/07 surgical DAVID drain removed 07/13, keeping IR drain on 07/15 Pt presented with sepsis from above, was on stress steroids, with progressive delirium stopped caspofungin and changed zosyn to cefepime Started TPN on 07/01 Patient eating 50% plus of his meals we will stop TPN on 07/11/2023 added thiamine with modest improvement of mental state, and ua is negative stop seroquel add melatonin Acute blood loss anemia: Unsure of the exact cause, patient's hemoglobin has been downtrending, did transfuse one unit of PRBC. Stable moderate to severe protein calorie malnutrition from extended postoperative state and recent GI surgery. Patient having nutritional supplements of boost added (3) Hard of hearing: (4) Acute kidney injury: Plan: resolved continue volume replacement carefully with surgical loss and concern for ileostomy output disucssion of contrast nephropathy appreciate input from nephro Plan DVT PROPHYLAXIS - SCDS - Chemoprophylaxis Admission and Anticipated Discharge Date Admission Date: June 28, 2023 Subjective 53 yo male reports having abdominal pain. Reports it is not worse or better than yesterday. Review of Systems Review of Systems: All systems reviewed & are unremarkable except as noted in HPI & below Physical Exam Physical Exam: patient awake and alert card exam is regular lung: CTA BL abdomen is hypoactive bowel sounds ostomy in the mid to right LUQ drain: purulent drainage Results & Data Results & Data Vital Signs (Past 12 Hours) Vital Signs Temp Pulse Resp BP Pulse Ox O2 Del Method 07/15/23 20:41 36.6 C 76 16 136/83 100 Room Air 07/15/23 14:40 36.5 C 89 16 136/86 98 Room Air PG Care Time/CCT Total # of Minutes Spent Total Time Spent with Patient: Total time spent is greater than 50% in coordination of care (as documented) at patient's floor/unit and/or counseling patient: Coding Level of Care Code 05341 SUB INP/OBS CARE 2/35MIN Diagnoses Encephalopathy G93.40 Perforated abdominal viscus R19.8 Hard of hearing H91.90 Acute kidney injury N17.9
[2023-07-16] MEDS: CEFEPIME 2,000 MG in SYRINGE 0 ML IV SCH ×3 (05:33→23:08)
[2023-07-16 06:26] LABS: Hematocrit (blood only) 26.9 % (42.0-52.0); Hemoglobin 8.7 g/dl (14.0-18.0); Mean Corpuscular Hemoglobin 28.7 pg (25.0-34.0); Mean Corpuscular Hgb Conc 32.3 g/dL (32.0-36.0); Mean Corpuscular Volume 88.8 fL (80.0-100.0); Mean Platelet Volume 9.5 fL (9.4-12.4); Platelet Count 437 K/uL (130-400); RDW Coefficient of Variation 14.5 % (11.5-14.5); RDW Standard Deviation 46.7 fL (36.4-46.3); Red Blood Count 3.03 M/uL (4.70-6.10); White Blood Count 16.17 K/ul (4.8-10.8)
[2023-07-16 06:42] LABS: BUN Creatinine Ratio 30.6 (10-20); Calcium 7.7 mg/dl (8.6-10.3); Creatinine Clr Calc Pharmacy 85.6 ml/min; Est GFR (African American) 122.6 ml/min; Est GFR (Non-African American) 105.8 ml/min; Potassium 3.5 mmol/L (3.5-5.1)
[2023-07-16] MEDS: metroNIDAZOLE 500 MG/100 ML BAG IV SCH ×3 (08:21→23:08)
[2023-07-16] MEDS: FAMOTIDINE 20 MG in SYRINGE 3 ML IV SCH (08:21)
[2023-07-16] MEDS: DAPTOmycin 475 MG in SYRINGE 0 ML IV SCH (08:22)
[2023-07-16] MEDS: FLUCONAZOLE 100 MG TAB PO SCH (08:22)
[2023-07-16] MEDS: HEPARIN SOD 5,000 UNIT/0.5 ML VIAL SQ SCH ×2 (08:25→20:15)
[2023-07-16] MEDS: oxyCODONE/ACETAMINOPHEN 5mg/325mg TAB PO PRN (08:25)
--- NOTE | 2023-07-16 14:54 | Surgery Progress Note ---
Date of Service July 16, 2023 Assessment & Plan (1) Ulcerative colitis: (2) Pancolitis: (3) Perforated abdominal viscus: (4) SIRS with acute organ dysfunction due to infectious process: Plan POD # 18 s/p ex lap , subtotal colectomy and ileostomy formation afebrile, vss more liquid stool and gas in ileostomy LUQ IR drain in place leukocytosis persists but slightly improved today at 16k Plan: advance diet as tolerated, boost supplementation at least BID continue LUQ IR drain continue pain management as needed continue IV antibiotics and antifungal per ID recommendations continue dressing changes daily and as needed continue scds and heparin for dvt prophlyaxis continue medical management Would consider discontinuation of lee catheter as patient working with PT/OT repeat am labs to follow wbc Consider repeating CT scan in 1-2 days if leukocytosis persists per ID recommendations. Admission and Anticipated Discharge Date Admission Date: June 28, 2023 Subjective very hard of hearing but understood my questions having some abdominal discomfort/bloating with IV medications? not able to eat much but this has been ongoing since March Guards at bedside said he is mostly eating the soups Has boost supplementation worked with PT, made one lap with walker per nurse seems more sleepy today and was complaining of abdominal pain today and got Percocet but denies current abdominal pain to me Physical Exam Constitutional: + thin, + cachectic, + frail appearing, cooperative and comfortable; not in distress and not combative Respiratory: normal respiratory effort; no respiratory distress Gastrointestinal (Abdomen): Inspection/Auscultation: + abdominal surgical drain present (LUQ drain with purulent cloudy output); abdomen not distended Percussion/Palpation: abdomen soft; abdomen nontender, no guarding and abdomen not rigid Midline incision no longer has patricia, there is opening of the skin at the infe rior aspect of incision with fibrinous/purulent drainage. No surrounding erythema. RLQ ileostomy with liquid stool output Skin: no rashes, warm and dry Psychiatric: Orientation: alert, oriented to person and cooperative Results & Data Vital Signs (Past 12 Hours) Vital Signs Temp Pulse Resp BP Pulse Ox O2 Del Method 07/16/23 08:00 Room Air 07/16/23 07:03 36.5 C 77 16 148/88 H 100 Room Air Laboratory Results 07/16/23 Range/Units 05:33 WBC 16.17 H (4.8-10.8) K/ul RBC 3.03 L (4.70-6.10) M/uL Hgb 8.7 L (14.0-18.0) g/dl Hct 26.9 L (42.0-52.0) % MCV 88.8 (80.0-100.0) fL MCH 28.7 (25.0-34.0) pg MCHC 32.3 (32.0-36.0) g/dL RDW Std Deviation 46.7 H (36.4-46.3) fL RDW Coeff of Ashley 14.5 (11.5-14.5) % Plt Count 437 H (130-400) K/uL MPV 9.5 (9.4-12.4) fL Sodium 136 (136-145) mmol/L Potassium 3.5 (3.5-5.1) mmol/L Chloride 107 (98-107) mmol/L Carbon Dioxide 24 (21-32) mmol/L Anion Gap 5 (3-11) BUN 22 (6-23) mg/dl Creatinine 0.72 (0.6-1.4) mg/dl Est Cr Clr Drug Dosing 85.6 ml/min Est GFR ( Amer) 122.6 ml/min Est GFR (Non-Af Amer) 105.8 ml/min BUN/Creatinine Ratio 30.6 H (10-20) Glucose 94 (70-99(Fasting)) mg/dl Calcium 7.7 L (8.6-10.3) mg/dl (1) Ulcerative colitis Ulcerative colitis location: ulcerative pancolitis Digestive disease complication type: with abscess Qualified Code(s): K51.014 - Ulcerative (chronic) pancolitis with abscess
--- NOTE | 2023-07-16 15:43 | Infectious Disease Progress Nt ---
Date of Service July 16, 2023 Assessment & Plan (1) Encephalopathy: (2) Sepsis: (3) S/P colon resection: (4) Pneumoperitoneum: (5) Ulcerative colitis: (6) Perforated abdominal viscus: Plan This is a 53 yo prisoner recently diagnosed with ulcerative pancolitis on 06/15 via colonoscopy and biopsy , started on prednisone and mesalamine who presents with abdominal pain and vomiting. CTAb showed perforated viscous with pneumoperitoneum possibly 2/2 pancolitis and toxic megacolon. He underwent exploratory laparotomy, subtotal colectomy, and Ileostomy on 06/28. He was found to have multiple areas of perforation w/in the cecum/transverse/sigmoid colon with feculent peritonitis with multiple abscesses throughout the abdominal cavity. DAVID drains placed. Abd fluid cx + for Bry albicans/dubliniensis, MSSA and PsA. He received Zosyn and Caspofungin. His hospital course c/b persistent leukocytosis and progressive encephalopathy. Repeat CTAB showed persistent collections in the abdomen He underwent LUQ fluid collection drain by IR with drain placement on 07/08 which grew 2 strain s of PSA and VRE. Abx were switched to cefepime, flagyl and Daptomycin . It was felt that Zosyn may be contributing to confusion. Head CT was unremarkable. MS improved on Cefe pime. Admission WBC 21 K now 17 k His most recent CTAb from 07/10 shows multiple stable to mildly decreased in size loculated air and fluid filled collections with mildly decreased pneumoperitoneum and persistent gastric wall thickening. ID consulted for antibiotic choice and duration for peritonitis with perforation. Micro BC 06/28 sterile Ab fluid 06/28 g/s many gnr, gpc, gpr , many yeast cx PSA (pans), MSSA, bry alb/dub Ab fluid 07/06 g/s 0 org, many wbc cx VRE, PsA panS , PsA#2 UC 07/08 sterile Abx/ Antifungals Cefepime 06/28, 07/11-ongoing flagyl 06/28, 07/12- ongoing Zosyn 06/28-07/09 Caspofungin 06/29-07/10 Dapto 07/12-ongoing Flucon 07/14- ongoing # Polymicrobial Feculent Peritonitis s/p ruptured viscous # Multiple abdominal abscess # Ulcerative Pancolitis # Persistent Leukocytosis Continued Leukocytosis likely secondary to abdominal process with multiple abscesses. CX+ for VRE, MSSA. PanS PSa and Bry alb/dub On 07/14 exam, has purulent drainage from wound sp suture removal and purulent drainage in LUQ drain Recommendations. Continue cefepime 2g iv q8 h Continue Flagyl 500mg IV 2 8 hrs Cotinue Daptomycin 4 mg /kg iv [id number] Fluconazole 400 mg po q24 hours, added back antifungal coverage as he had continued purulent drainage in from wound and in drain and persistent leukocytosis on 07/14 Final duration of abx will be based on resolution of abscesses on imaging and clinical improvement. If no improvement, he may need additional source control/ drainage. Given persistent leukocytosis despite broad abx and restart of antifungals , would repeat CTAB on 07/16 or 07/17 ~ 1 week after last CTAB done on 07/10 lfts for am ( on high dose fluc) ID will continue to follow. Claudy Vargas MD, MPH Infectious Disease [facility], [facility] Call [phone] with questions , Admission and Anticipated Discharge Date Admission Date: June 28, 2023 Subjective Subsequent visit was provided via telemedicine using two-way real-time interactive telecommunication between the patient and the telemedicine provider. For the duration of the visit, the provider was performing the assessment from a different facility than the patient. This includesuse of bluetooth stethoscope forauscultationperformed by the telepresenter that the telemedicine provider can hear if described in the physical exam. Biotechnologist contact information: Please call [facility] Center . (Phone Number For Physician Use Only) After establishing a telemedicine visit, patient was: Patient was verified with two unique identifiers Time Spent with Patient: Subsequent => 25 min complains of less abd pain . He thinks its because he recently received pain meds WBC 16.17, cr 0.72 Physical Exam Physical Exam: Gen- lying bed, hard of hearing Skin multiple tattoos Abd- soft, Tender, ostomy . Midline wound sp suture removal ; less purulent drainage. LUQ drain with purulent drainage in bag Ext- No edema, RUE PICC in place, R ankle and left arm cuffed to bed Neuro-AAO*3 Results & Data Vital Signs (Past 12 Hours) Vital Signs Temp Pulse Resp BP Pulse Ox O2 Del Method 07/16/23 15:12 36.5 C 78 16 146/88 H 99 Room Air 07/16/23 08:00 Room Air 07/16/23 07:03 36.5 C 77 16 148/88 H 100 Room Air Laboratory Results Short CBC 07/16/23 Range/Units 05:33 WBC 16.17 H (4.8-10.8) K/ul Hgb 8.7 L (14.0-18.0) g/dl Hct 26.9 L (42.0-52.0) % Plt Count 437 H (130-400) K/uL BMP 07/16/23 05:33 Sodium 136 Potassium 3.5 Chloride 107 Carbon Dioxide 24 BUN 22 Creatinine 0.72 Glucose 94 Calcium 7.7 L Diagnostic Findings Microbiology 07/06/23 12:45 Abdomen, Left Upper Quadrant Gram Stain - Final 07/06/23 12:45 Abdomen, Left Upper Quadrant Aerobic and Anaerobic Culture - Final Pseudomonas aeruginosa Enterococcus faecium VRE Pseudomonas aeruginosa#2 07/08/23 21:25 Urine,Clean Catch Urine Culture - Final No growth - less than 1,000 colonies/mL. 06/28/23 18:30 Blood Aerobic Blood Culture - Final No growth in Aerobic bottle after 5 days. 06/28/23 18:30 Blood Anaerobic Blood Culture - Final No growth in Anaerobic bottle after 5 days. 06/28/23 12:58 Blood Aerobic Blood Culture - Final No growth in Aerobic bottle after 5 days. 06/28/23 12:58 Blood Anaerobic Blood Culture - Final No growth in Anaerobic bottle after 5 days. 06/28/23 15:33 Abdomen Gram Stain - Final 06/28/23 15:33 Abdomen Aerobic and Anaerobic Culture - Final Pseudomonas aeruginosa Bry albicans/dubliniensis Staphylococcus aureus Medications Administered Home Medications Medication Instructions Recorded Confirmed Last Taken mesalamine 4 gram/60 mL enema 4 g (60 mL) SC HS 1 month #1,800 mL 06/22/23 06/28/23 Unknown mesalamine 800 mg tablet,delayed 1,600 mg (2 x 800 mg) PO TID 1 06/22/23 06/28/23 Unknown release month #180 tabs prednisone 20 mg tablet 40 mg (2 x 20 mg) PO DAILY 1 month 06/22/23 06/28/23 Unknown #60 tabs Active Medications Generic Name Dose Route Start Last Admin Trade Name Freq PRN Reason Stop Dose Admin Fluconazole 400 mg 07/14/23 17:30 07/16/23 08:22 Fluconazole 100 Mg Tab PO 07/24/23 17:29 400 mg DAILY HERNESTO Administration Heparin Sodium (Beef Lung) 5 ml 07/05/23 14:28 07/16/23 09:42 Heparin 10 Unit/Ml 5 Ml Flush FLUSH 08/04/23 14:27 5 ml PRN PRN Administration Flush Heparin Sodium (Porcine) 5,000 units 07/08/23 09:00 07/16/23 08:25 Heparin Sod 5,000 Unit/0.5 Ml Vial SQ 08/07/23 08:59 5,000 units Q12 HERNESTO Administration Cefepime HCl 2,000 mg/ Syringe 20 mls @ 5 mls/min 07/10/23 14:15 07/16/23 15:11 IV 07/20/23 14:14 5 mls/min Q8H HERNESTO Administration Protocol Daptomycin 475 mg/ Syringe 9.5 mls @ 4.75 mls/min 07/12/23 08:00 07/16/23 08:22 IV 07/22/23 07:59 4.75 mls/min Q24H HERNESTO Administration Protocol Metronidazole 500 mg in 100 mls @ 100 mls/hr 07/12/23 08:00 07/16/23 15:11 Flagyl IV 07/22/23 07:59 100 mls/hr Q8H HERNESTO Administration Melatonin 3 mg 07/13/23 21:00 07/15/23 20:19 Melatonin 3 Mg Tab PO 08/12/23 20:59 3 mg HS HERNESTO Administration Ondansetron HCl 4 mg 06/29/23 10:08 07/14/23 13:40 Ondansetron Inj 2 Mg/Ml 2 Ml Vial IV 07/29/23 10:07 4 mg Q6H PRN Administration Nausea And Vomiting Oxycodone/Acetaminophen 1 tab 07/05/23 14:09 07/13/23 16:10 Oxycodone/Acetaminophen 5mg/325mg Tab PO 07/19/23 14:08 1 tab Q4H PRN Administration moderate pain Oxycodone/Acetaminophen 2 tab 07/05/23 14:09 07/16/23 08:25 Oxycodone/Acetaminophen 5mg/325mg Tab PO 07/19/23 14:08 2 tab Q4H PRN Administration Severe Pain (Scale 7, 8, 9,10) (5) Ulcerative colitis Digestive disease complication type: with abscess Ulcerative colitis location: ulcerative pancolitis Qualified Code(s): K51.014 - Ulcerative (chronic) pancolitis with abscess
[2023-07-16] MEDS: FAMOTIDINE 20 MG TAB PO SCH (20:15)
[2023-07-16] MEDS: MELATONIN 3 MG TAB PO SCH (20:15)
--- NOTE | 2023-07-16 22:36 | Hospitalist Progress Note ---
Date of Service July 16, 2023 Assessment & Plan (1) Encephalopathy: Plan: encephalopathy improved after changing Zosyn to cefepime ( Zosyn does have confusion listed as one of his adverse drug reactions,) CT of his head CT of abdomen pelvis Did not show any new findings persistent fluid collections in the abdomen are slightly improved. 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 appreicate input from gen surgery. removed lee cathter on 07/16 (2) Perforated abdominal viscus: Plan: pt with recent diagnosis of Ulcerative colitis, and had sessile polyp biopsied presented with free air, to OR 06/28/23 with colon resection, subtotal colectomy and ileostomy three areas of perforation were identified, abscess and feculent material seen Zyprexa changed to cefepime to continue treatment of Pseudomonas seen on culture change prompted by hopes that may improve his delirium 07/05/[address] scan of abd pelvis given worsening WBC: a LUQ fluid collection. This was drained by IR 07/06 LUQ Drain placed grew dailey sensitive pseudomonas ,recent result for VRE, adding Dapto and flagyl. Purulent fluid is being removed on 07/07 surgical DAVID drain removed 07/13, keeping IR drain on 07/15 Pt presented with sepsis from above, was on stress steroids, with progressive delirium stopped caspofungin and changed zosyn to cefepime Started TPN on 07/01 Patient eating 50% plus of his meals we will stop TPN on 07/11/2023 added thiamine with modest improvement of mental state, and ua is negative stop seroquel add melatonin Acute blood loss anemia: Unsure of the exact cause, patient's hemoglobin has been downtrending, did transfuse one unit of PRBC. Stable moderate to severe protein calorie malnutrition from extended postoperative state and recent GI surgery. Patient having nutritional supplements of boost added (3) Hard of hearing: (4) Acute kidney injury: Plan: resolved continue volume replacement carefully with surgical loss and concern for ileostomy output disucssion of contrast nephropathy appreciate input from nephro Plan DVT PROPHYLAXIS - SCDS - Chemoprophylaxis Admission and Anticipated Discharge Date Admission Date: June 28, 2023 Subjective Patient reports no new symptoms. Patient reports his pain has improved. Review of Systems Review of Systems: All systems reviewed & are unremarkable except as noted in HPI & below Physical Exam Physical Exam: patient awake and alert card exam is regular lung: CTA BL abdomen is hypoactive bowel sounds ostomy in the mid to right LUQ drain: purulent drainage Results & Data Results & Data Vital Signs (Past 12 Hours) Vital Signs Temp Pulse Resp BP Pulse Ox O2 Del Method 07/16/23 20:55 36.4 C L 83 16 134/88 99 Room Air 07/16/23 15:12 36.5 C 78 16 146/88 H 99 Room Air PG Care Time/CCT Total # of Minutes Spent Total Time Spent with Patient: Total time spent is greater than 50% in coordination of care (as documented) at patient's floor/unit and/or counseling patient: Coding Level of Care Code 86006 SUB INP/OBS CARE 2/35MIN Diagnoses Encephalopathy G93.40 Perforated abdominal viscus R19.8 Hard of hearing H91.90 Acute kidney injury N17.9
[2023-07-17] MEDS: CEFEPIME 2,000 MG in SYRINGE 0 ML IV SCH ×3 (05:50→22:56)
[2023-07-17] MEDS: oxyCODONE/ACETAMINOPHEN 5mg/325mg TAB PO PRN (05:54)
[2023-07-17 06:36] LABS: Basophils # (auto) 0.05 K/uL (0.00-0.20); Basophils % (auto) 0.3 %; Eosinophils # (auto) 0.05 K/uL (0.00-0.50); Eosinophils % (auto) 0.3 %; Hematocrit (blood only) 27.5 % (42.0-52.0); Hemoglobin 8.7 g/dl (14.0-18.0); Immature Granulocytes # (auto) 0.13 K/uL (0.01-0.20); Immature Granulocytes % (auto) 0.8 %; Lymphocytes % (auto) 6.4 %; Mean Corpuscular Hemoglobin 28.4 pg (25.0-34.0); Mean Corpuscular Hgb Conc 31.6 g/dL (32.0-36.0); Mean Corpuscular Volume 89.9 fL (80.0-100.0); Mean Platelet Volume 9.6 fL (9.4-12.4); Monocytes # (auto) 0.73 K/uL (0.11-0.59); Monocytes % (auto) 4.2 %; Platelet Count 393 K/uL (130-400); RDW Coefficient of Variation 14.6 % (11.5-14.5); RDW Standard Deviation 47.3 fL (36.4-46.3); Red Blood Count 3.06 M/uL (4.70-6.10); White Blood Count 17.26 K/ul (4.8-10.8)
[2023-07-17] MEDS: FAMOTIDINE 20 MG TAB PO SCH ×2 (09:15→21:36)
[2023-07-17] MEDS: HEPARIN SOD 5,000 UNIT/0.5 ML VIAL SQ SCH ×2 (09:15→21:36)
[2023-07-17] MEDS: FLUCONAZOLE 100 MG TAB PO SCH (09:16)
[2023-07-17] MEDS: metroNIDAZOLE 500 MG/100 ML BAG IV SCH ×3 (09:16→22:56)
[2023-07-17] MEDS: DAPTOmycin 475 MG in SYRINGE 0 ML IV SCH (09:17)
[2023-07-17 09:47] LABS: Albumin Level 2.3 gm/dl (3.4-5.0); Bilirubin Direct 0.1 mg/dl (0-0.2); Bilirubin,Total 0.4 mg/dl (0.2-1.0); Total Protein 5.8 gm/dl (6.0-8.3)
--- NOTE | 2023-07-17 13:13 | Surgery Progress Note ---
Date of Service July 17, 2023 Assessment & Plan (1) Ulcerative colitis: Plan: s/p subtotal colectomy/ ileostomy. (2) Pancolitis: (3) Perforated abdominal viscus: Plan: Has had multiple intra-abdominal fluid collections with most recent IR drainage on 07/10 still yielding pus. Explained the need for prolonged antibiotics and how ID will help manage these. As per last ID note, should repeat CT scan Wednesday to see how collections are progressing. No new changes. Diet as tolerated. (4) SIRS with acute organ dysfunction due to infectious process: Plan POD # 19 s/p ex lap , subtotal colectomy and ileostomy formation afebrile, vss continues with liquid stool and gas in ileostomy LUQ IR drain in place leukocytosis persists Plan: diet as tolerated continue LUQ IR drain continue pain management as needed continue IV antibiotics and antifungal per ID recommendations continue dressing changes daily and as needed continue scds and heparin for dvt prophlyaxis continue medical management repeat am labs to follow wbc Consider repeating CT scan Wednesday per ID recommendations. Admission and Anticipated Discharge Date Admission Date: June 28, 2023 Subjective Pt is frustrated. Wants to eat but feels bloated when he tries. No nausea or vomiting. ostomy is functioning. Feels the antibiotics are making him feel worse. Physical Exam Gastrointestinal (Abdomen): Inspection/Auscultation: abdomen normal to inspection, normal bowel sounds, + abdominal surgical incision (open at inferior aspect with fibrinous debris) and + abdominal surgical drain present (cloudy); abdomen not distended Percussion/Palpation: abdomen soft; no guarding ostomy with gas and stool in bag Musculoskeletal: Extremities: extremities normal to inspection Neurologic: awake; no focal motor deficits Results & Data Vital Signs (Past 12 Hours) Vital Signs Temp Pulse Resp BP Pulse Ox O2 Del Method 07/17/23 07:06 36.6 C 71 18 148/86 H 100 Room Air Laboratory Results 07/17/23 07/16/23 Range/Units 05:40 05:33 WBC 17.26 H 16.17 H (4.8-10.8) K/ul RBC 3.06 L 3.03 L (4.70-6.10) M/uL Hgb 8.7 L 8.7 L (14.0-18.0) g/dl Hct 27.5 L 26.9 L (42.0-52.0) % MCV 89.9 88.8 (80.0-100.0) fL MCH 28.4 28.7 (25.0-34.0) pg MCHC 31.6 L 32.3 (32.0-36.0) g/dL RDW Std Deviation 47.3 H 46.7 H (36.4-46.3) fL RDW Coeff of Ashley 14.6 H 14.5 (11.5-14.5) % Plt Count 393 437 H (130-400) K/uL MPV 9.6 9.5 (9.4-12.4) fL Immature Gran % (Auto) 0.8 % Neut % (Auto) 88.0 % Lymph % (Auto) 6.4 % Treasure % (Auto) 4.2 % Eos % (Auto) 0.3 % Baso % (Auto) 0.3 % Neut # (Auto) 15.20 H (1.40-6.50) K/uL Lymph # (Auto) 1.10 L (1.20-3.40) K/uL Treasure # (Auto) 0.73 H (0.11-0.59) K/uL Eos # (Auto) 0.05 (0.00-0.50) K/uL Baso # (Auto) 0.05 (0.00-0.20) K/uL Immature Gran # (Auto) 0.13 (0.01-0.20) K/uL Sodium 136 (136-145) mmol/L Potassium 3.5 (3.5-5.1) mmol/L Chloride 107 (98-107) mmol/L Carbon Dioxide 24 (21-32) mmol/L Anion Gap 5 (3-11) BUN 22 (6-23) mg/dl Creatinine 0.72 (0.6-1.4) mg/dl Est Cr Clr Drug Dosing 85.6 ml/min Est GFR ( Amer) 122.6 ml/min Est GFR (Non-Af Amer) 105.8 ml/min BUN/Creatinine Ratio 30.6 H (10-20) Glucose 94 (70-99(Fasting)) mg/dl Calcium 7.7 L (8.6-10.3) mg/dl Total Bilirubin 0.4 (0.2-1.0) mg/dl Direct Bilirubin 0.1 (0-0.2) mg/dl AST 17 (13-39) U/L ALT 16 (7-52) U/L Alkaline Phosphatase 159 H (34-104) U/L C-Reactive Protein 8.97 H (0-0.5) mg/dl Total Protein 5.8 L (6.0-8.3) gm/dl Albumin 2.3 L (3.4-5.0) gm/dl Procalcitonin 0.30 (0-0.5) ng/ml (1) Ulcerative colitis Ulcerative colitis location: ulcerative pancolitis Digestive disease complication type: with abscess Qualified Code(s): K51.014 - Ulcerative (chronic) pancolitis with abscess
[2023-07-17] MEDS: MELATONIN 3 MG TAB PO SCH (22:56)
--- NOTE | 2023-07-17 23:10 | Hospitalist Progress Note ---
Date of Service July 17, 2023 Assessment & Plan (1) Encephalopathy: Plan: encephalopathy improved after changing Zosyn to cefepime ( Zosyn does have confusion listed as one of his adverse drug reactions,) CT of his head CT of abdomen pelvis Did not show any new findings persistent fluid collections in the abdomen are slightly improved. 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 appreicate input from gen surgery. removed lee cathter on 07/16 (2) Perforated abdominal viscus: Plan: pt with recent diagnosis of Ulcerative colitis, and had sessile polyp biopsied presented with free air, to OR 06/28/23 with colon resection, subtotal colectomy and ileostomy three areas of perforation were identified, abscess and feculent material seen Zyprexa changed to cefepime to continue treatment of Pseudomonas seen on culture change prompted by hopes that may improve his delirium 07/05/[address] scan of abd pelvis given worsening WBC: a LUQ fluid collection. This was drained by IR 07/06 LUQ Drain placed grew dailey sensitive pseudomonas ,recent result for VRE, adding Dapto and flagyl. Purulent fluid is being removed on 07/07 surgical DAVID drain removed 07/13, keeping IR drain on 07/15 Pt presented with sepsis from above, was on stress steroids, with progressive delirium stopped caspofungin and changed zosyn to cefepime Started TPN on 07/01 Patient eating 50% plus of his meals we will stop TPN on 07/11/2023 added thiamine with modest improvement of mental state, and ua is negative stop seroquel add melatonin Acute blood loss anemia: Unsure of the exact cause, patient's hemoglobin has been downtrending, did transfuse one unit of PRBC. Stable moderate to severe protein calorie malnutrition from extended postoperative state and recent GI surgery. Patient having nutritional supplements of boost added (3) Hard of hearing: (4) Acute kidney injury: Plan: resolved continue volume replacement carefully with surgical loss and concern for ileostomy output disucssion of contrast nephropathy appreciate input from nephro Plan DVT PROPHYLAXIS - SCDS - Chemoprophylaxis Admission and Anticipated Discharge Date Admission Date: June 28, 2023 Subjective Patient reports no new cymptoms Review of Systems Review of Systems: All systems reviewed & are unremarkable except as noted in HPI & below Physical Exam Physical Exam: patient awake and alert card exam is regular lung: CTA BL abdomen is hypoactive bowel sounds ostomy in the mid to right, mid line incision has opening in lower quarter, no drainage. LUQ drain: purulent drainage (bag changed on 07/16 PM: currently marked at 50 ml in bag) Results & Data Results & Data Vital Signs (Past 12 Hours) Vital Signs Temp Pulse Resp BP Pulse Ox O2 Del Method 07/17/23 21:33 36.7 C 88 18 134/90 99 Room Air 07/17/23 15:01 36.5 C 92 H 16 130/84 100 Room Air PG Care Time/CCT Total # of Minutes Spent Total Time Spent with Patient: Total time spent is greater than 50% in coordination of care (as documented) at patient's floor/unit and/or counseling patient: Coding Level of Care Code 00456 SUB INP/OBS CARE 2/35MIN Diagnoses Encephalopathy G93.40 Perforated abdominal viscus R19.8 Hard of hearing H91.90 Acute kidney injury N17.9
[2023-07-18] MEDS: CEFEPIME 2,000 MG in SYRINGE 0 ML IV SCH ×2 (05:38→14:11)
[2023-07-18 06:26] LABS: Basophils # (auto) 0.06 K/uL (0.00-0.20); Basophils % (auto) 0.4 %; Eosinophils # (auto) 0.16 K/uL (0.00-0.50); Eosinophils % (auto) 1.2 %; Hematocrit (blood only) 26.6 % (42.0-52.0); Hemoglobin 8.5 g/dl (14.0-18.0); Immature Granulocytes % (auto) 0.7 %; Lymphocytes # (auto) 1.18 K/uL (1.20-3.40); Lymphocytes % (auto) 8.5 %; Mean Corpuscular Hemoglobin 28.3 pg (25.0-34.0); Mean Corpuscular Volume 88.7 fL (80.0-100.0); Mean Platelet Volume 9.8 fL (9.4-12.4); Monocytes # (auto) 0.64 K/uL (0.11-0.59); Monocytes % (auto) 4.6 %; Neutrophils # (auto) 11.73 K/uL (1.40-6.50); Neutrophils % (auto) 84.6 %; Platelet Count 389 K/uL (130-400); RDW Coefficient of Variation 14.7 % (11.5-14.5); RDW Standard Deviation 46.8 fL (36.4-46.3); White Blood Count 13.87 K/ul (4.8-10.8)
[2023-07-18] MEDS: FAMOTIDINE 20 MG TAB PO SCH ×2 (08:12→21:13)
[2023-07-18] MEDS: oxyCODONE/ACETAMINOPHEN 5mg/325mg TAB PO PRN ×2 (08:12→18:32)
[2023-07-18] MEDS: HEPARIN SOD 5,000 UNIT/0.5 ML VIAL SQ SCH ×2 (08:13→21:13)
[2023-07-18] MEDS: FLUCONAZOLE 100 MG TAB PO SCH (08:13)
[2023-07-18] MEDS: metroNIDAZOLE 500 MG/100 ML BAG IV SCH ×2 (08:13→16:30)
[2023-07-18] MEDS: DAPTOmycin 475 MG in SYRINGE 0 ML IV SCH (08:13)
--- NOTE | 2023-07-18 11:39 | Surgery Progress Note ---
Date of Service July 18, 2023 Assessment & Plan (1) Ulcerative colitis: Plan: s/p subtotal colectomy/ ileostomy. (2) Pancolitis: (3) Perforated abdominal viscus: Plan: Has had multiple intra-abdominal fluid collections with most recent IR drainage on 07/10 still yielding pus. Explained the need for prolonged antibiotics and how ID will help manage these. As per last ID note, should repeat CT scan Wednesday to see how collections are progressing. No new changes. Diet as tolerated. (4) SIRS with acute organ dysfunction due to infectious process: Plan POD # 20 s/p ex lap , subtotal colectomy and ileostomy formation afebrile, vss continues with liquid stool and gas in ileostomy LUQ IR drain in place leukocytosis improved today Plan: diet as tolerated continue LUQ IR drain continue pain management as needed continue IV antibiotics and antifungal per ID recommendations continue dressing changes daily and as needed continue scds and heparin for dvt prophlyaxis continue medical management Repeat CT tomorrow Wound care consult for possible wound VAC Admission and Anticipated Discharge Date Admission Date: June 28, 2023 Subjective Patient reports no new symptoms Physical Exam Physical Exam: AFVSS NAD, A&O x3 Abdomen: Soft, mild TTP PERC drain with purulent drainage Ostomy pink and viable with gas and stool in bag Bottom of incision has superficially opened approximately 4 cm, exposing fascia with good granulation tissue Results & Data Vital Signs (Past 12 Hours) Vital Signs Temp Pulse Resp BP Pulse Ox O2 Del Method 07/18/23 07:05 36.7 C 70 16 144/87 H 99 Room Air (1) Ulcerative colitis Ulcerative colitis location: ulcerative pancolitis Digestive disease complication type: with abscess Qualified Code(s): K51.014 - Ulcerative (chronic) pancolitis with abscess
--- NOTE | 2023-07-18 11:52 | Hospitalist Progress Note ---
Date of Service July 18, 2023 Assessment & Plan (1) Encephalopathy: Plan: Acute encephalopathy, probably metabolic. Now resolved. Continue supportive care. Head CT scan negative. (2) Perforated abdominal viscus: Plan: pt with recent diagnosis of Ulcerative colitis, and had sessile polyp biopsied. Presented with free air, to OR 06/28/23 with colon resection, subtotal colectomy and ileostomy. Three areas of perforation were identified, abscess and feculent material seen. Pseudomonas and Enterococcus faecium isolated. Left upper quadrant drain has been removed. Repeat abdominal CT scan tomorrow, July 19. (3) Acute blood loss anemia: Plan: Postoperatively. Serial labs. (4) Hard of hearing: Plan: Supportive care (5) Acute kidney injury: Plan: resolved . Monitor intake and output. Serial labs. Plan Probable return to the [facility] [place] sometime this week Admission and Anticipated Discharge Date Admission Date: June 28, 2023 Subjective Alert. No distress. Repeat abdominal CT scan tomorrow, July 19, per surgery recommendations. He remains on intravenous cefepime, daptomycin, Flagyl along with oral Diflucan. White blood cell count is down to 13,000 today, July 18. Hemoglobin low but stable at 8.5. Review of Systems 2 Review of Systems: Constitutional-no fever or chills ENT-no blurred vision, no double vision, no epistaxis, no sore throat Respiratory-no cough, no wheezing, no shortness of breath Cardiac-no palpitations, no chest pain, no syncope GI-no nausea, vomiting, diarrhea, melena, hematochezia -no urinary retention, no urinary incontinence, no dysuria, no hematuria Musculoskeletal-no joint pain, no muscle tenderness Skin-no bruising, no rashes, no pruritus Neuro-no isolated weakness, no paresthesia, no weakness Psych-no depression, no anxiety Physical Exam 2 Physical Exam: General-alert and oriented x3, no fevers, no chills HEENT-head atraumatic and normocephalic, pupils equal and reactive to light, extraocular muscles intact Neck-no lymphadenopathy or thyromegaly, trachea midline Chest-clear to auscultation percussion. No rales wheezing or rhonchi Cardiac-regular rate and rhythm, normal S1 and S2 Abdomen-normal bowel sounds, no hepatosplenomegaly. Bandages in place, clean and dry Extremities-no cyanosis, clubbing, or edema Neuro-cranial nerves II through XII intact, motor and sensory function within normal limits, strength symmetrical, no focal deficits Psych-flat affect Results & Data Results & Data Vital Signs (Past 12 Hours) Vital Signs Temp Pulse Resp BP Pulse Ox O2 Del Method 07/18/23 07:05 36.7 C 70 16 144/87 H 99 Room Air Laboratory Results 07/18/23 05:38 07/16/23 05:33 PG Care Time/CCT Total # of Minutes Spent Total Time Spent with Patient: Total time spent is greater than 50% in coordination of care (as documented) at patient's floor/unit and/or counseling patient: Coding Level of Care Code 12042 SUB INP/OBS CARE 3/50MIN Diagnoses Encephalopathy G93.40 Perforated abdominal viscus R19.8 Acute blood loss anemia D62 Hard of hearing H91.90 Acute kidney injury N17.9
[2023-07-19] MEDS: metroNIDAZOLE 500 MG/100 ML BAG IV SCH ×3 (00:11→17:32)
[2023-07-19] MEDS: CEFEPIME 2,000 MG in SYRINGE 0 ML IV SCH ×4 (00:11→22:34)
[2023-07-19] MEDS: MELATONIN 3 MG TAB PO SCH ×3 (00:11→22:34)
[2023-07-19 06:13] LABS: Basophils # (auto) 0.06 K/uL (0.00-0.20); Basophils % (auto) 0.4 %; Eosinophils # (auto) 0.07 K/uL (0.00-0.50); Eosinophils % (auto) 0.5 %; Hematocrit (blood only) 29.8 % (42.0-52.0); Hemoglobin 9.3 g/dl (14.0-18.0); Immature Granulocytes % (auto) 0.7 %; Lymphocytes # (auto) 1.15 K/uL (1.20-3.40); Lymphocytes % (auto) 8.1 %; Mean Corpuscular Hemoglobin 28.5 pg (25.0-34.0); Mean Corpuscular Hgb Conc 31.2 g/dL (32.0-36.0); Mean Corpuscular Volume 91.4 fL (80.0-100.0); Mean Platelet Volume 9.5 fL (9.4-12.4); Monocytes # (auto) 0.64 K/uL (0.11-0.59); Monocytes % (auto) 4.5 %; Neutrophils # (auto) 12.23 K/uL (1.40-6.50); Neutrophils % (auto) 85.8 %; Platelet Count 391 K/uL (130-400); RDW Coefficient of Variation 15.1 % (11.5-14.5); Red Blood Count 3.26 M/uL (4.70-6.10); White Blood Count 14.25 K/ul (4.8-10.8)
[2023-07-19 06:28] LABS: BUN Creatinine Ratio 20.6 (10-20); Calcium 7.8 mg/dl (8.6-10.3); Creatinine Clr Calc Pharmacy 63.5 ml/min; Est GFR (African American) 102.2 ml/min; Est GFR (Non-African American) 88.1 ml/min; Potassium 3.6 mmol/L (3.5-5.1)
[2023-07-19] MEDS: DAPTOmycin 475 MG in SYRINGE 0 ML IV SCH (07:39)
[2023-07-19] MEDS: FLUCONAZOLE 100 MG TAB PO SCH (07:40)
[2023-07-19] MEDS: HEPARIN SOD 5,000 UNIT/0.5 ML VIAL SQ SCH ×2 (07:40→22:34)
--- NOTE | 2023-07-19 10:57 | Hospitalist Progress Note ---
Date of Service July 19, 2023 Assessment & Plan (1) Encephalopathy: Plan: Acute encephalopathy, probably metabolic. Now resolved. Continue supportive care. Head CT scan negative. (2) Perforated abdominal viscus: Plan: pt with recent diagnosis of Ulcerative colitis, and had sessile polyp biopsied. Presented with free air, to OR 06/28/23 with colon resection, subtotal colectomy and ileostomy. Three areas of perforation were identified, abscess and feculent material seen. Pseudomonas and Enterococcus faecium isolated. Left upper quadrant drain has been removed. Repeat abdominal CT scan tomorrow, July 19. Awaiting Images, this will determine antibitoic duration vs further source control (3) Acute blood loss anemia: Plan: Postoperatively. Serial labs. (4) Hard of hearing: Plan: Supportive care (5) Acute kidney injury: Plan: resolved . Monitor intake and output. Serial labs. Plan Probable return to the [facility] sometime this week Admission and Anticipated Discharge Date Admission Date: June 28, 2023 Subjective Patient reports no new symptoms Review of Systems Review of Systems: All systems reviewed & are unremarkable except as noted in HPI & below Physical Exam Physical Exam: patient awake and alert card exam is regular lung: CTA BL abdomen is hypoactive bowel sounds ostomy in the mid to right, mid line incision has opening in lower quarter, no drainage. LUQ drain: purulent drainage in bag Results & Data Results & Data Vital Signs (Past 12 Hours) Vital Signs Temp Pulse Resp BP Pulse Ox O2 Del Method 07/19/23 07:29 36.8 C 76 18 145/86 H 99 Room Air PG Care Time/CCT Total # of Minutes Spent Total Time Spent with Patient: Total time spent is greater than 50% in coordination of care (as documented) at patient's floor/unit and/or counseling patient: Coding Level of Care Code 28183 SUB INP/OBS CARE 2/35MIN Diagnoses Encephalopathy G93.40 Perforated abdominal viscus R19.8 Acute blood loss anemia D62 Hard of hearing H91.90 Acute kidney injury N17.9
[2023-07-19] MEDS ORDERED: OPTIRAY 320 100ml IV ONE (13:52)
--- NOTE | 2023-07-19 14:16 | CT Scan Report ---
CT SCAN OF THE ABDOMEN AND PELVIS WITH IV CONTRAST CLINICAL HISTORY: Colon perforation and abscess. COMPARISON STUDY: Abdominal CT dated 07/02/2023. TECHNIQUE: Following the IV administration of 93 cc of Optiray 320, CT scan of the abdomen and pelvi s is performed from the lung bases to the proximal femora. Images are reviewed in the axial, sagittal , and coronal planes. IV contrast was administered without complication. Oral contrast was utilized. A dose lowering technique was utilized adhering to the principles of ALARA. CT DOSE: 383.47 mGy.cm FINDINGS: Lung bases: The heart is normal in size and without pericardial effusion. There is a small to moderat e left pleural effusion with left basilar consolidation. There is scarring/atelectasis the right lung base. Liver: The contrast-enhanced liver is normal in size, contour, and attenuation. There is no intrahepa tic biliary ductal dilatation. The hepatic veins and portal veins are patent. Gallbladder: Unremarkable. Spleen: Normal in size and attenuation. An 11 mm hypodensity in the anterior spleen is unchanged. Pancreas: Unremarkable. Adrenal glands: Unremarkable. Kidneys: The contrast enhanced kidneys are normal in size and without hydronephrosis. Enhancement of both kidneys is heterogeneous, left more so than right. Abdominal vasculature: The abdominal aorta is normal in course and caliber noting moderate atheroscle rotic calcification. Bowel: There is postoperative change from subtotal colectomy. Tisha pouch is noted in the pelvis. No bowel obstruction is seen. Enteric contrast reaches the ostomy. Peritoneum: There is an anterior abdominal wound below the umbilicus. There is a focal hernia which c ontains fluid. There is free fluid contained within intraperitoneal collections. There are numerous i ntra-abdominal fluid collections. A thick-walled and peripherally enhancing gas and fluid containing collection in the left upper quadrant extending from the diaphragm to below the spleen measures appro ximately 10 x 12.5 x this has modestly decreased in size from 07/10/2023. 12.5 cm as seen on axial im age #70. This contains a percutaneous drainage catheter. A small multiloculated fluid collection ricky g the gastric fundus has decreased in size from previous. The residual collection measures approximat stone 4 x 3.5 cm as seen on axial image #63. A fluid collection below the gallbladder on image #128 has also modestly decreased in size. This measures approximately 4.5 x 5.5 x 2.5 cm as seen on image #12 8. A thick-walled rim-enhancing gas and fluid containing collection in the pelvis above the sigmoid h as modestly decreased in size from previous. This measures approximately 5 x 5 x 7 cm. The surgical d rain within this collection seen previously has been removed. A serpiginous fluid collection in the v entral pelvis just deep to the peritoneal reflection extending from images #211 through 234 has also decreased in size from previous. Lymphadenopathy: None. Pelvic viscera: The bladder is mildly distended and contains intraluminal gas. The prostate and semin al vesicles are normal as imaged. Skeletal structures: No lytic or blastic lesions are seen. IMPRESSION: 1. There are numerous large residual intra-abdominal fluid collections as above which are typical for abscesses. These have modestly decreased in size as compared to 07/10/2023. 2. A surgical drain is present within the largest collection in the left upper quadrant around the sp christian. The surgical drain in the pelvis seen on 07/10/2023 has been removed. 3. Small to moderate left pleural effusion with left basilar consolidation. 4. Heterogeneous enhancement of both kidneys is nonspecific and can be seen with infection/pyelonephr itis. Correlate with clinical findings/urinalysis. 5. Ventral abdominal wound with postsurgical change from subtotal colectomy and right lower quadrant ileostomy. 6. There is no bowel obstruction. 7. There is nonspecific gas within the bladder lumen. 8. Additional findings as above. ACT 112: Negative or not required by law. Electronically signed by: Hu Suarez M.D. 07/19/2023 2:14 PM
[2023-07-19] MEDS: FAMOTIDINE 20 MG TAB PO SCH ×2 (14:25→22:34)
--- NOTE | 2023-07-19 16:42 | Surgery Progress Note ---
Date of Service July 19, 2023 Assessment & Plan (1) Ulcerative colitis: Plan: s/p subtotal colectomy/ ileostomy. (2) Pancolitis: (3) Perforated abdominal viscus: Plan: Has had multiple intra-abdominal fluid collections with most recent IR drainage on 07/10 still yielding pus. Explained the need for prolonged antibiotics and how ID will help manage these. CT scan with decreased fluid collections. We will discuss appropriate antibiotic course with ID. (4) SIRS with acute organ dysfunction due to infectious process: Plan POD # 21 s/p ex lap , subtotal colectomy and ileostomy formation afebrile, vss continues with liquid stool and gas in ileostomy LUQ IR drain in place leukocytosis improved today Plan: diet as tolerated continue LUQ IR drain continue pain management as needed continue IV antibiotics and antifungal per ID recommendations continue dressing changes daily and as needed continue scds and heparin for dvt prophlyaxis continue medical management CT with decreased collections wound VAC for midline wound tomorrow, appreciate wound care recs Admission and Anticipated Discharge Date Admission Date: June 28, 2023 Subjective Doing fairly well. No fevers or chills. CT scan today demonstrated decreased size of the collections. Tolerating a diet but not very hungry Physical Exam Physical Exam: AFVSS NAD, A&O x3 Abdomen: Soft, mild TTP PERC drain with purulent drainage Ostomy pink and viable with gas and stool in bag Bottom of incision has superficially opened approximately 4 cm, exposing fascia with good granulation tissue Results & Data Vital Signs (Past 12 Hours) Vital Signs Temp Pulse Resp BP Pulse Ox O2 Del Method 07/19/23 15:53 36.9 C 77 18 134/89 99 Room Air 07/19/23 07:29 36.8 C 76 18 145/86 H 99 Room Air (1) Ulcerative colitis Ulcerative colitis location: ulcerative pancolitis Digestive disease complication type: with abscess Qualified Code(s): K51.014 - Ulcerative (chronic) pancolitis with abscess
[2023-07-19] MEDS: ONDANSETRON INJ 2 MG/ML 2 ML VIAL IV PRN (22:56)
[2023-07-20] MEDS: metroNIDAZOLE 500 MG/100 ML BAG IV SCH ×3 (01:21→15:55)
[2023-07-20] MEDS: CEFEPIME 2,000 MG in SYRINGE 0 ML IV SCH ×2 (05:54→16:33)
[2023-07-20 06:37] LABS: Basophils # (auto) 0.07 K/uL (0.00-0.20); Basophils % (auto) 0.5 %; Eosinophils # (auto) 0.13 K/uL (0.00-0.50); Eosinophils % (auto) 0.9 %; Hemoglobin 9.2 g/dl (14.0-18.0); Immature Granulocytes # (auto) 0.14 K/uL (0.01-0.20); Lymphocytes # (auto) 0.81 K/uL (1.20-3.40); Lymphocytes % (auto) 5.7 %; Mean Corpuscular Hemoglobin 28.3 pg (25.0-34.0); Mean Corpuscular Hgb Conc 31.7 g/dL (32.0-36.0); Mean Corpuscular Volume 89.2 fL (80.0-100.0); Mean Platelet Volume 9.4 fL (9.4-12.4); Monocytes # (auto) 0.52 K/uL (0.11-0.59); Monocytes % (auto) 3.7 %; Neutrophils # (auto) 12.57 K/uL (1.40-6.50); Neutrophils % (auto) 88.2 %; Platelet Count 398 K/uL (130-400); RDW Coefficient of Variation 15.4 % (11.5-14.5); RDW Standard Deviation 49.7 fL (36.4-46.3); Red Blood Count 3.25 M/uL (4.70-6.10); White Blood Count 14.24 K/ul (4.8-10.8)
[2023-07-20 06:57] LABS: BUN Creatinine Ratio 19.5 (10-20); Calcium 7.6 mg/dl (8.6-10.3); Creatinine Clr Calc Pharmacy 75.2 ml/min; Est GFR (African American) 116.2 ml/min; Est GFR (Non-African American) 100.3 ml/min; Potassium 3.1 mmol/L (3.5-5.1)
[2023-07-20] MEDS: DAPTOmycin 475 MG in SYRINGE 0 ML IV SCH (07:47)
[2023-07-20] MEDS: HEPARIN SOD 5,000 UNIT/0.5 ML VIAL SQ SCH ×2 (07:48→21:51)
[2023-07-20] MEDS: FLUCONAZOLE 100 MG TAB PO SCH (07:48)
[2023-07-20] MEDS: FAMOTIDINE 20 MG TAB PO SCH ×2 (07:49→21:50)
--- NOTE | 2023-07-20 11:56 | Surgery Progress Note ---
Date of Service July 20, 2023 Assessment & Plan (1) Ulcerative colitis: Plan: s/p subtotal colectomy/ ileostomy. (2) Pancolitis: (3) Perforated abdominal viscus: Plan: Has had multiple intra-abdominal fluid collections with most recent IR drainage on 07/10 still yielding pus. Explained the need for prolonged antibiotics and how ID will help manage these. CT scan with decreased fluid collections. We will discuss appropriate antibiotic course with ID. (4) SIRS with acute organ dysfunction due to infectious process: Plan POD # 22 s/p ex lap , subtotal colectomy and ileostomy formation afebrile, vss continues with liquid stool and gas in ileostomy LUQ IR drain in place persistent leukocytosis, improving Plan: diet as tolerated continue LUQ IR drain continue pain management as needed continue IV antibiotics and antifungal per ID recommendations continue dressing changes daily and as needed continue scds and heparin for dvt prophlyaxis continue medical management CT with decreased collections wound VAC for midline wound, appreciate wound care recs Admission and Anticipated Discharge Date Admission Date: June 28, 2023 Subjective Doing fairly well. No fevers or chills. having some discharge from rectum. Tolerating a diet but not very hungry Physical Exam Physical Exam: AFVSS NAD, A&O x3 Abdomen: Soft, mild TTP PERC drain with purulent drainage Ostomy pink and viable with gas and stool in bag Bottom of incision has superficially opened approximately 4 cm, exposing fascia with good granulation tissue Results & Data Vital Signs (Past 12 Hours) Vital Signs Temp Pulse Resp BP Pulse Ox O2 Del Method 07/20/23 08:00 Room Air 07/20/23 08:00 36.9 C 74 18 136/60 97 Room Air (1) Ulcerative colitis Ulcerative colitis location: ulcerative pancolitis Digestive disease complication type: with abscess Qualified Code(s): K51.014 - Ulcerative (chronic) pancolitis with abscess
--- NOTE | 2023-07-20 15:54 | Infectious Disease Progress Nt ---
Date of Service July 20, 2023 Assessment & Plan (1) Encephalopathy: (2) Sepsis: (3) S/P colon resection: (4) Pneumoperitoneum: (5) Ulcerative colitis: (6) Perforated abdominal viscus: Plan Micro 07/08 UCx NG 07/06 Abd fluid cx: PsA #1, PsA #2 (dailey-sensitive), VRE (S dapto) 06/28 Abd fluid cx: PsA, C albicans/dub, MSSA 06/28 BCx x2: NG Abx/Antifungals: Dapto 07/12-ongoing Flucon 07/14- ongoing Cefepime 06/28, 07/11-ongoing flagyl 06/28, 07/12- ongoing Zosyn 06/28-07/09 Caspofungin 06/29-07/10 Problems: # Polymicrobial Feculent Peritonitis s/p ruptured viscous: MSSA, PsA, VRE, Mariely alb/dub # Multiple abdominal abscess # Ulcerative Pancolitis # Persistent Leukocytosis 53 yo incarcerated M recently diagnosed with ulcerative pancolitis, started on prednisone and mesalamine who presented on 06/28 with abdominal pain and vomiting, found to have perforated viscous with pneumoperitoneum and secondary polymicrobial feculent peritonitis s/p ex-lap, subtotal colectomy, and ileostomy (06/28). He was found to have multiple areas of perforation w/in the cecum/ transverse/sigmoid colon with feculent peritonitis with multiple abscesses throughout the abdominal cavity. DAVID drains placed. Abd fluid cx + for Mariely albicans/dubliniensis, MSSA and PsA. He received Zosyn and Caspofungin. His hospital course c/b persistent leukocytosis and progressive encephalopathy. Repeat CTAB 07/05 showed persistent collections in the abdomen. He underwent LUQ fluid collection drain placement by IR on 07/06, which grew 2 strains of PSA and VRE. Abx were switched to cefepime, flagyl and Daptomycin. It was felt that Zosyn may be contributing to confusion. Head CT was unremarkable. MS improved on Cefepime. Leukocytosis has overall improved, now 14K. Most recent CT A/P with IV contrast on 07/19 showed numerous large residual intra-abdominal fluid collections, mo destly decreased in size. Continued Leukocytosis likely secondary to abdominal process with multiple abscesses. Recommendations: -Increased daptomycin to 600 mg IV daily (~12 mg/kg IV daily) given OSVALDO 4. -CK 12 on 07/19/23. Check weekly CK to monitor for toxicity -Can continue cefepime 2 g IV q8h, metronidazole 500 mg IV q8h, fluconazole 400 mg PO daily -Final duration of abx will be based on resolution of abscesses on follow-up imaging and clinical improvement. If no improvement, he may need additional source control/drainage. -On discharge, may favor continuing IV antibiotics rather than switching to PO, for several reasons: 1. It is unknown how long he will be on antibiotics, so would hesitate to discharge him on a prolonged course of linezolid and metro nidazole, as he may experience adverse effects. 2. He still has sizeable intra- abdominal fluid collections at this time and would want to ensure good PO antibiotic absorption (although most absorption happens in duodenum and jejunum, so pt would likely be fine with PO) -Should get follow-up CT to monitor fluid collections, perhaps sometime next week. ID will continue to follow. Please page [facility] with further questions. Admission and Anticipated Discharge Date Admission Date: June 28, 2023 Subjective This patient recommendation is based on a telemedicine consult request which was completed asynchronously through chart review and information provided by the primary physician. The patient was not seen or examined today. The evaluation is consultative in nature and all patient care and treatment decisions can either be accepted or rejected by the patient's primary hospital-based treating physician using their own independent medical judgment for their patient. Time Spent Reviewing Chart: 21 - 30 minutes Patient not seen Afebrile WBC 14.24 Review of System Patient not seen Physical Exam Physical Exam: Patient not seen Results & Data Vital Signs (Past 12 Hours) Vital Signs Temp Pulse Resp BP Pulse Ox O2 Del Method 07/20/23 15:30 36.6 C 83 16 137/84 98 Room Air 07/20/23 08:00 Room Air 07/20/23 08:00 36.9 C 74 18 136/60 97 Room Air Laboratory Results Short CBC 07/20/23 Range/Units 05:46 WBC 14.24 H (4.8-10.8) K/ul Hgb 9.2 L (14.0-18.0) g/dl Hct 29.0 L (42.0-52.0) % Plt Count 398 (130-400) K/uL BMP 07/20/23 05:46 Sodium 134 L Potassium 3.1 L Chloride 104 Carbon Dioxide 23 BUN 16 Creatinine 0.82 Glucose 93 Calcium 7.6 L Diagnostic Findings Abdomen/Pelvis CT 07/19/23 08:28 CT SCAN OF THE ABDOMEN AND PELVIS WITH IV CONTRAST CLINICAL HISTORY: Colon perforation and abscess. COMPARISON STUDY: Abdominal CT dated 07/02/2023. TECHNIQUE: Following the IV administration of 93 cc of Optiray 320, CT scan of the abdomen and pelvis is performed from the lung bases to the proximal femora. Images are reviewed in the axial, sagittal, and coronal planes. IV contrast was administered without complication. Oral contrast was utilized. A dose lowering technique was utilized adhering to the principles of ALARA. CT DOSE: 383.47 mGy.cm FINDINGS: Lung bases: The heart is normal in size and without pericardial effusion. There is a small to moderate left pleural effusion with left basilar consolidation. There is scarring/atelectasis the right lung base. Liver: The contrast-enhanced liver is normal in size, contour, and attenuation. There is no intrahepatic biliary ductal dilatation. The hepatic veins and portal veins are patent. Gallbladder: Unremarkable. Spleen: Normal in size and attenuation. An 11 mm hypodensity in the anterior spleen is unchanged. Pancreas: Unremarkable. Adrenal glands: Unremarkable. Kidneys: The contrast enhanced kidneys are normal in size and without hydronephrosis. Enhancement of both kidneys is heterogeneous, left more so than right. Abdominal vasculature: The abdominal aorta is normal in course and caliber noting moderate atherosclerotic calcification. Bowel: There is postoperative change from subtotal colectomy. Tisha pouch is noted in the pelvis. No bowel obstruction is seen. Enteric contrast reaches the ostomy. Peritoneum: There is an anterior abdominal wound below the umbilicus. There is a focal hernia which contains fluid. There is free fluid contained within intraperitoneal collections. There are numerous intra-abdominal fluid collections. A thick-walled and peripherally enhancing gas and fluid containing collection in the left upper quadrant extending from the diaphragm to below the spleen measures approximately 10 x 12.5 x this has modestly decreased in size from 07/10/2023. 12.5 cm as seen on axial image #70. This contains a percutaneous drainage catheter. A small multiloculated fluid collection along the gastric fundus has decreased in size from previous. The residual collection measures approximately 4 x 3.5 cm as seen on axial image #63. A fluid collection below the gallbladder on image #128 has also modestly decreased in size. This measures approximately 4.5 x 5.5 x 2.5 cm as seen on image #128. A thick-walled rim-enhancing gas and fluid containing collection in the pelvis above the sigmoid has modestly decreased in size from previous. This measures approximately 5 x 5 x 7 cm. The surgical drain within this collection seen previously has been removed. A serpiginous fluid collection in the ventral pelvis just deep to the peritoneal reflection extending from images #211 through 234 has also decreased in size from previous. Lymphadenopathy: None. Pelvic viscera: The bladder is mildly distended and contains intraluminal gas. The prostate and seminal vesicles are normal as imaged. Skeletal structures: No lytic or blastic lesions are seen. IMPRESSION: 1. There are numerous large residual intra-abdominal fluid collections as above which are typical for abscesses. These have modestly decreased in size as compared to 07/10/2023. 2. A surgical drain is present within the largest collection in the left upper quadrant around the spleen. The surgical drain in the pelvis seen on 07/10/2023 has been removed. 3. Small to moderate left pleural effusion with left basilar consolidation. 4. Heterogeneous enhancement of both kidneys is nonspecific and can be seen with infection/pyelonephritis. Correlate with clinical findings/urinalysis. 5. Ventral abdominal wound with postsurgical change from subtotal colectomy and right lower quadrant ileostomy. 6. There is no bowel obstruction. 7. There is nonspecific gas within the bladder lumen. 8. Additional findings as above. ACT 112: Negative or not required by law. Electronically signed by: Hu Suarez M.D. 07/19/2023 2:14 PM Medications Administered Current Inpatient Medications Famotidine (Famotidine 20 Mg Tab) 20 mg PO BID HERNESTO Stop: 08/15/23 20:59 Last Admin: 07/20/23 07:49 Dose: 20 mg Fluconazole (Fluconazole 100 Mg Tab) 400 mg PO DAILY HERNESTO Stop: 07/24/23 17:29 Last Admin: 07/20/23 07:48 Dose: 400 mg Heparin Sodium (Beef Lung) (Heparin 10 Unit/Ml 5 Ml Flush) 5 ml FLUSH PRN PRN PRN Reason: Flush Stop: 08/04/23 14:27 Last Admin: 07/20/23 08:55 Dose: 5 ml Heparin Sodium (Porcine) (Heparin Sod 5,000 Unit/0.5 Ml Vial) 5,000 units SQ Q12 [facility] Stop: 08/07/23 08:59 Last Admin: 07/20/23 07:48 Dose: 5,000 units Daptomycin 475 mg/ Syringe 9.5 mls @ 4.75 mls/min IV Q24H [facility]; Protocol Stop: 07/22/23 07:59 Last Admin: 07/20/23 07:47 Dose: 4.75 mls/min Metronidazole (Flagyl) 500 mg in 100 mls @ 100 mls/hr IV Q8H [facility] Stop: 07/22/23 07:59 Last Infusion: 07/20/23 08:55 Dose: Infused Melatonin (Melatonin 3 Mg Tab) 3 mg PO HS [facility] Stop: 08/12/23 20:59 Last Admin: 07/19/23 22:34 Dose: 3 mg Ondansetron HCl (Ondansetron Inj 2 Mg/Ml 2 Ml Vial) 4 mg IV Q6H PRN PRN Reason: Nausea And Vomiting Stop: 07/29/23 10:07 Last Admin: 07/19/23 22:56 Dose: 4 mg (5) Ulcerative colitis Digestive disease complication type: with abscess Ulcerative colitis location: ulcerative pancolitis Qualified Code(s): K51.014 - Ulcerative (chronic) pancolitis with abscess
--- NOTE | 2023-07-20 21:44 | Hospitalist Progress Note ---
Date of Service July 20, 2023 Assessment & Plan (1) Encephalopathy: Plan: Acute encephalopathy, probably metabolic. Now resolved. Continue supportive care. Head CT scan negative. (2) Perforated abdominal viscus: Plan: pt with recent diagnosis of Ulcerative colitis, and had sessile polyp biopsied. Presented with free air, to OR 06/28/23 with colon resection, subtotal colectomy and ileostomy. Three areas of perforation were identified, abscess and feculent material seen. Pseudomonas and Enterococcus faecium isolated. Left upper quadrant drain has been removed. Repeat abdominal CT scan tomorrow, July 19. Awaiting Images, this will determine antibiotic duration vs further source control Placing wound vac (3) Acute blood loss anemia: Plan: Postoperatively. Serial labs. (4) Hard of hearing: Plan: Supportive care (5) Acute kidney injury: Plan: resolved . Monitor intake and output. Serial labs. Plan Probable return to the [facility] sometime this week Admission and Anticipated Discharge Date Admission Date: June 28, 2023 Subjective Patient reports no new symptoms. Review of Systems Review of Systems: All systems reviewed & are unremarkable except as noted in HPI & below Physical Exam Physical Exam: patient awake and alert card exam is regular lung: CTA BL abdomen is hypoactive bowel sounds ostomy in the mid to right, mid line incision has opening in lower quarter, no drainage. LUQ drain: purulent drainage in bag (about 75 ml) Results & Data Results & Data Vital Signs (Past 12 Hours) Vital Signs Temp Pulse Resp BP Pulse Ox O2 Del Method 07/20/23 20:28 36.6 C 72 18 147/91 H 99 Room Air 07/20/23 15:30 36.6 C 83 16 137/84 98 Room Air PG Care Time/CCT Total # of Minutes Spent Total Time Spent with Patient: Total time spent is greater than 50% in coordination of care (as documented) at patient's floor/unit and/or counseling patient: Coding Level of Care Code 10469 SUB INP/OBS CARE 2/35MIN Diagnoses Encephalopathy G93.40 Perforated abdominal viscus R19.8 Acute blood loss anemia D62 Hard of hearing H91.90 Acute kidney injury N17.9
[2023-07-20] MEDS: MELATONIN 3 MG TAB PO SCH (21:50)
[2023-07-21] MEDS: CEFEPIME 2,000 MG in SYRINGE 0 ML IV SCH ×3 (00:14→15:04)
[2023-07-21] MEDS: metroNIDAZOLE 500 MG/100 ML BAG IV SCH ×3 (00:14→15:04)
[2023-07-21] MEDS: DAPTOmycin 600 MG in SYRINGE 0 ML IV SCH (05:55)
[2023-07-21] MEDS: FLUCONAZOLE 100 MG TAB PO SCH (07:38)
[2023-07-21] MEDS: FAMOTIDINE 20 MG TAB PO SCH ×2 (07:38→20:40)
[2023-07-21] MEDS: HEPARIN SOD 5,000 UNIT/0.5 ML VIAL SQ SCH ×2 (07:38→20:40)
[2023-07-21 07:47] LABS: Basophils # (auto) 0.04 K/uL (0.00-0.20); Basophils % (auto) 0.3 %; Eosinophils # (auto) 0.21 K/uL (0.00-0.50); Eosinophils % (auto) 1.6 %; Hematocrit (blood only) 32.4 % (42.0-52.0); Hemoglobin 10.4 g/dl (14.0-18.0); Immature Granulocytes # (auto) 0.11 K/uL (0.01-0.20); Immature Granulocytes % (auto) 0.9 %; Lymphocytes # (auto) 0.76 K/uL (1.20-3.40); Lymphocytes % (auto) 5.9 %; Mean Corpuscular Hemoglobin 28.7 pg (25.0-34.0); Mean Corpuscular Hgb Conc 32.1 g/dL (32.0-36.0); Mean Corpuscular Volume 89.3 fL (80.0-100.0); Mean Platelet Volume 9.2 fL (9.4-12.4); Monocytes % (auto) 3.9 %; Neutrophils # (auto) 11.31 K/uL (1.40-6.50); Neutrophils % (auto) 87.4 %; Platelet Count 413 K/uL (130-400); RDW Coefficient of Variation 15.8 % (11.5-14.5); RDW Standard Deviation 50.2 fL (36.4-46.3); Red Blood Count 3.63 M/uL (4.70-6.10); White Blood Count 12.93 K/ul (4.8-10.8)
[2023-07-21 08:28] LABS: Calcium 7.9 mg/dl (8.6-10.3); Potassium 3.2 mmol/L (3.5-5.1)
[2023-07-21 08:33] LABS: BUN Creatinine Ratio 20.5 (10-20); Est GFR (African American) 112.9 ml/min; Est GFR (Non-African American) 97.4 ml/min
[2023-07-21] MEDS: ACETAMINOPHEN 325 MG TAB PO PRN ×2 (09:20→20:40)
--- NOTE | 2023-07-21 10:30 | Surgery Progress Note ---
Date of Service July 21, 2023 Assessment & Plan (1) Ulcerative colitis: Plan: s/p subtotal colectomy/ ileostomy. (2) Pancolitis: (3) Perforated abdominal viscus: Plan: Has had multiple intra-abdominal fluid collections with most recent IR drainage on 07/10 still yielding pus. Repeat CT scan with decreased fluid collections. ID recommending continued IV antibiotics and repeating another ct in a week. Leukocytosis continues to improve, afebrile (4) SIRS with acute organ dysfunction due to infectious process: Plan POD # 23 s/p ex lap , subtotal colectomy and ileostomy formation afebrile, vss continues with liquid stool and gas in ileostomy LUQ IR drain in place persistent leukocytosis but improving down to 12k today Plan: diet as tolerated, supplement with BID BOOST continue LUQ IR drain continue pain management as needed (Tylenol and Percocet as needed) will add Carafate given patients pain with drinking liquids, continue Pepcid (had edematous gastric wall thickening on prior CT scan) continue IV antibiotics and antifungal per ID recommendations continue dressing changes daily and as needed continue wound vac per wound nurse continue scds and heparin for dvt prophlyaxis continue medical management Discussed with Dr. guo who agrees with above. Admission and Anticipated Discharge Date Admission Date: June 28, 2023 Subjective states not feeling well compared to last few days. "feels like " States he has burning abdominal pain after drinking liquids even water and after IV antibiotics administered having some rectal discharge/incontinence and urine incontinence ostomy working not eating much low appetite Physical Exam Constitutional: WD/WN, vitals as above + thin, + cachectic, + frail appearing, cooperative and comfortable; no acute distress and not ill appearing Respiratory: normal respiratory effort; no respiratory distress and no labored breathing Gastrointestinal (Abdomen): Inspection/Auscultation: normal bowel sounds, + abdominal surgical incision (midline incision intact with wound vac intact inferiorly) and + abdominal surgical drain present (IR LUQ drain present, purulent drainage in bag); abdomen not distended Percussion/Palpation: + abdomen tender (mild generalized upper abdomen) and abdomen soft; no guarding, abdomen not rigid and abdomen not firm RLQ ileostomy with liquid stool and gas Skin: no rashes, warm and dry Psychiatric: Orientation: alert and oriented x 3 Results & Data Vital Signs (Past 12 Hours) Vital Signs Temp Pulse Resp BP Pulse Ox O2 Del Method 07/21/23 08:00 Room Air 07/21/23 07:33 36.4 C L 82 18 135/84 100 Room Air Laboratory Results 07/21/23 Range/Units 07:30 WBC 12.93 H (4.8-10.8) K/ul RBC 3.63 L (4.70-6.10) M/uL Hgb 10.4 L (14.0-18.0) g/dl Hct 32.4 L (42.0-52.0) % MCV 89.3 (80.0-100.0) fL MCH 28.7 (25.0-34.0) pg MCHC 32.1 (32.0-36.0) g/dL RDW Std Deviation 50.2 H (36.4-46.3) fL RDW Coeff of Ashley 15.8 H (11.5-14.5) % Plt Count 413 H (130-400) K/uL MPV 9.2 L (9.4-12.4) fL Immature Gran % (Auto) 0.9 % Neut % (Auto) 87.4 % Lymph % (Auto) 5.9 % [place] % (Auto) 3.9 % Eos % (Auto) 1.6 % Baso % (Auto) 0.3 % Neut # (Auto) 11.31 H (1.40-6.50) K/uL Lymph # (Auto) 0.76 L (1.20-3.40) K/uL [place] # (Auto) 0.50 (0.11-0.59) K/uL Eos # (Auto) 0.21 (0.00-0.50) K/uL Baso # (Auto) 0.04 (0.00-0.20) K/uL Immature Gran # (Auto) 0.11 (0.01-0.20) K/uL Sodium 135 L (136-145) mmol/L Potassium 3.2 L (3.5-5.1) mmol/L Chloride 105 (98-107) mmol/L Carbon Dioxide 22 (21-32) mmol/L Anion Gap 8 (3-11) BUN 18 (6-23) mg/dl Creatinine 0.88 (0.6-1.4) mg/dl Est Cr Clr Drug Dosing 70.0 ml/min Est GFR ( Amer) 112.9 ml/min Est GFR (Non-Af Amer) 97.4 ml/min BUN/Creatinine Ratio 20.5 H (10-20) Glucose 88 (70-99(Fasting)) mg/dl Calcium 7.9 L (8.6-10.3) mg/dl (1) Ulcerative colitis Ulcerative colitis location: ulcerative pancolitis Digestive disease complication type: with abscess Qualified Code(s): K51.014 - Ulcerative (chronic) pancolitis with abscess
[2023-07-21] MEDS: SUCRALFATE 1 GM/10 ML UDC PO SCH ×3 (12:11→20:40)
[2023-07-21] MEDS: oxyCODONE/ACETAMINOPHEN 5mg/325mg TAB PO PRN (12:13)
--- NOTE | 2023-07-21 19:27 | Hospitalist Progress Note ---
Date of Service July 21, 2023 Assessment & Plan (1) Encephalopathy: Plan: Acute encephalopathy, probably metabolic. Now resolved. Continue supportive care. Head CT scan negative. (2) Perforated abdominal viscus: Plan: pt with recent diagnosis of Ulcerative colitis, and had sessile polyp biopsied. Presented with free air, to OR 06/28/23 with colon resection, subtotal colectomy and ileostomy. Three areas of perforation were identified, abscess and feculent material seen. Pseudomonas and Enterococcus faecium isolated. Left upper quadrant drain has been removed. Repeat abdominal CT scan tomorrow, July 19. Infectious disease recommendations -Increased daptomycin to 600 mg IV daily -Continue cefepime 2 g IV q8h, metronidazole 500 mg IV q8h, fluconazole 400 mg PO daily -Final duration of abx will be based on resolution of abscesses on follow-up imaging and clinical improvement. If no improvement, he may need additional source control/drainage. -On discharge, may favor continuing IV antibiotics rather than switching to PO, for several reasons: 1. It is unknown how long he will be on antibiotics, so would hesitate to discharge him on a prolonged course of linezolid and metronidazole, as he may experience adverse effects. 2. He still has sizeable intra-abdominal fluid collections at this time and would want to ensure good PO antibiotic absorption (although most absorption happens in duodenum and jejunum, so pt would likely be fine with PO) -Should get follow-up CT to monitor fluid collections, perhaps sometime next week. Placing wound vac (3) Acute blood loss anemia: Plan: Postoperatively. stable Serial labs. (4) Hard of hearing: Plan: Supportive care (5) Acute kidney injury: Plan: resolved . Monitor intake and output. Serial labs. Plan Probable return to the [facility] sometime this week Admission and Anticipated Discharge Date Admission Date: June 28, 2023 Results & Data Results & Data Vital Signs (Past 12 Hours) Vital Signs Temp Pulse Resp BP Pulse Ox O2 Del Method 07/21/23 15:06 97.3 F L 89 18 138/83 98 Room Air 07/21/23 08:00 Room Air 07/21/23 07:33 97.5 F L 82 18 135/84 100 Room Air PG Care Time/CCT Total # of Minutes Spent Total Time Spent with Patient: Total time spent is greater than 50% in coordination of care (as documented) at patient's floor/unit and/or counseling patient: Coding Diagnoses Encephalopathy G93.40 Perforated abdominal viscus R19.8 Acute blood loss anemia D62 Hard of hearing H91.90 Acute kidney injury N17.9
[2023-07-21] MEDS: MELATONIN 3 MG TAB PO SCH (20:40)
--- NOTE | 2023-07-21 22:31 | Hospitalist Progress Note ---
Date of Service July 21, 2023 Assessment & Plan (1) Encephalopathy: Plan: Acute encephalopathy, probably metabolic. Now resolved. Continue supportive care. Head CT scan negative. (2) Perforated abdominal viscus: Plan: pt with recent diagnosis of Ulcerative colitis, and had sessile polyp biopsied. Presented with free air, to OR 06/28/23 with colon resection, subtotal colectomy and ileostomy. Three areas of perforation were identified, abscess and feculent material seen. Pseudomonas and Enterococcus faecium isolated. Left upper quadrant drain has been removed. Repeat abdominal CT scan tomorrow, July 19. Infectious disease initial recommendations -Increased daptomycin to 600 mg IV daily -Continue cefepime 2 g IV q8h, metronidazole 500 mg IV q8h, fluconazole 400 mg PO daily -Final duration of abx will be based on resolution of abscesses on follow-up imaging and clinical improvement. -Patient discharge regimen will be zosyn and daptomycin. -though patient had encephalopathy, this regimen is easier to administer, if patient becomes confused again, will need to stop zosyn. -Patient will need repat CT scan in about 2 weeks as imaging is showing improvement. -Patient is asking if he can go to rehab first. Placed wound vac, needs replaced every 3 days, (07/22) (3) Acute blood loss anemia: Plan: Postoperatively. stable Serial labs. (4) Hard of hearing: Plan: Supportive care (5) Acute kidney injury: Plan: resolved . Monitor intake and output. Serial labs. Plan Probable return to the [facility] sometime this week Admission and Anticipated Discharge Date Admission Date: June 28, 2023 Subjective Patient reports no new symptoms. Patient reports having abdominal pain in the AM, Patient states percocet improved the pain. Review of Systems Review of Systems: All systems reviewed & are unremarkable except as noted in HPI & below Physical Exam Physical Exam: patient awake and alert card exam is regular lung: CTA BL abdomen is hypoactive bowel sounds ostomy in the mid to right, mid line incision has opening in lower quarter, no drainage. LUQ drain: purulent drainage in bag (about 75 ml) Results & Data Results & Data Vital Signs (Past 12 Hours) Vital Signs Temp Pulse Resp BP Pulse Ox O2 Del Method 07/21/23 20:35 36.9 C 77 18 147/90 H 98 Room Air 07/21/23 15:06 36.3 C L 89 18 138/83 98 Room Air PG Care Time/CCT Total # of Minutes Spent Total Time Spent with Patient: Total time spent is greater than 50% in coordination of care (as documented) at patient's floor/unit and/or counseling patient: Coding Level of Care Code 41885 SUB INP/OBS CARE 2/35MIN Diagnoses Encephalopathy G93.40 Perforated abdominal viscus R19.8 Acute blood loss anemia D62 Hard of hearing H91.90 Acute kidney injury N17.9
[2023-07-22] MEDS: metroNIDAZOLE 500 MG/100 ML BAG IV SCH (01:23)
[2023-07-22] MEDS: CEFEPIME 2,000 MG in SYRINGE 0 ML IV SCH ×2 (01:23→08:16)
[2023-07-22] MEDS: DAPTOmycin 600 MG in SYRINGE 0 ML IV SCH (06:29)
[2023-07-22] MEDS: oxyCODONE/ACETAMINOPHEN 5mg/325mg TAB PO PRN (06:35)
--- NOTE | 2023-07-22 07:27 | Hospitalist Progress Note ---
Date of Service July 22, 2023 Assessment & Plan (1) Perforated abdominal viscus: Plan: pt with recent diagnosis of Ulcerative colitis, and had sessile polyp biopsied. Presented with free air, to OR 06/28/23 with colon resection, subtotal colectomy and ileostomy. Three areas of perforation were identified, abscess and feculent material seen. Pseudomonas and Enterococcus faecium isolated. Left upper quadrant drain has been removed. IR drain remains and continues to drain in luq Repeat abdominal CT scan 07/19 shows persistent fluid collections consistent with abscess Infectious disease initial recommendations -Increased daptomycin to 600 mg IV daily -Continue cefepime 2 g IV q8h, metronidazole 500 mg IV q8h, fluconazole 400 mg PO daily -Final duration of abx will be based on resolution of abscesses on follow-up imaging and clinical improvement. 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 stable Serial labs. (3) Hard of hearing: Plan: Supportive care (4) Encephalopathy: Plan: Acute encephalopathy, probably metabolic. Now resolved. Continue supportive care. Head CT scan negative. (5) Acute kidney injury: Plan: resolved . encourage po intake Plan Need to discuss if able to return to snf or if there is another alternative Admission and Anticipated Discharge Date Admission Date: June 28, 2023 Subjective pt is without much pain except when he moves, still with IR drain and now wound vacc to mid abdomen, has ostomy that is functioning, pt is not eating much but says its not because he is not hungry Physical Exam Physical Exam: cardiac exam is regular lungs are clear abd with functioning ostomy in Right side, has wound vacc and drain Results & Data Results & Data Vital Signs (Past 12 Hours) Vital Signs Temp Pulse Resp BP Pulse Ox O2 Del Method 07/21/23 20:35 98.4 F 77 18 147/90 H 98 Room Air 07/21/23 20:00 Room Air PG Care Time/CCT Total # of Minutes Spent Total Time Spent with Patient: Total time spent is greater than 50% in coordination of care (as documented) at patient's floor/unit and/or counseling patient: Coding Level of Care Code 86871 SUB INP/OBS CARE 2/35MIN Diagnoses Perforated abdominal viscus R19.8 Acute blood loss anemia D62 Bilateral hearing loss, unspecified hearing loss type H91.93 Hearing loss type: unspecified Laterality: bilateral Encephalopathy G93.40 Acute kidney injury N17.9 (3) Hard of hearing Hearing loss type: unspecified Laterality: bilateral Qualified Code(s): H91.93 - Unspecified hearing loss, bilateral
[2023-07-22] MEDS: HEPARIN SOD 5,000 UNIT/0.5 ML VIAL SQ SCH ×2 (08:16→21:10)
[2023-07-22] MEDS: FAMOTIDINE 20 MG TAB PO SCH ×2 (08:16→21:02)
[2023-07-22] MEDS: FLUCONAZOLE 100 MG TAB PO SCH (08:17)
[2023-07-22] MEDS: SUCRALFATE 1 GM/10 ML UDC PO SCH ×4 (08:17→21:03)
[2023-07-22] MEDS: POTASSIUM CHLORIDE CRTAB 20 MEQ TABCR PO SCH (08:20)
--- NOTE | 2023-07-22 09:57 | Infectious Disease Progress Nt ---
Date of Service July 22, 2023 Assessment & Plan (1) Encephalopathy: (2) Sepsis: (3) S/P colon resection: (4) Pneumoperitoneum: (5) Ulcerative colitis: (6) Perforated abdominal viscus: Plan Micro 07/08 UCx NG 07/06 Abd fluid cx: PsA #1, PsA #2 (dailey-sensitive), VRE (S dapto, OSVALDO 4) 06/28 Abd fluid cx: PsA, C albicans/dub, MSSA 06/28 BCx x2: NG Abx/Antifungals: Dapto 07/12 - ongoing Zosyn 06/28-07/09, 07/22 - ongoing Flucon 07/14- ongoing Cefepime 06/28, 07/11-07/22 flagyl 06/28, 07/12- 07/22 Caspofungin 06/29-07/10 Problems: # Polymicrobial Feculent Peritonitis s/p ruptured viscous: MSSA, PsA, VRE, Mariely alb/dub # Multiple abdominal abscess s/p IR drain placement # Ulcerative Pancolitis # Persistent Leukocytosis 53 yo incarcerated M recently diagnosed with ulcerative pancolitis, started on prednisone and mesalamine who presented on 06/28 with abdominal pain and vomiting, found to have perforated viscous with pneumoperitoneum and secondary polymicrobial feculent peritonitis s/p ex-lap, subtotal colectomy, and ileostomy (06/28). He was found to have multiple areas of perforation w/in the cecum/transverse/sigmoid colon with feculent peritonitis with multiple abscesses throughout the abdominal cavity. DAVID drains placed. Abd fluid cx + for Mariely albicans/dubliniensis, MSSA and PsA. He received Zosyn and Caspofungin. His hospital course c/b persistent leukocytosis and progressive encephalopathy. Repeat CTAB 07/05 showed persistent collections in the abdomen. He underwent LUQ fluid collection drain placement by IR on 07/06, which grew 2 strains of PSA and VRE. Abx were switched to cefepime, flagyl and Daptomycin. It was felt that Zosyn may be contributing to confusion. Head CT was unremarkable. MS improved on Cefepime. Leukocytosis has overall improved. Most recent CT A/P with IV contrast on 07/19 showed numerous large residual intra-abdominal fluid collections, modestly decreased in size. Continued Leukocytosis likely secondary to abdominal process with multiple abscesses. Recommendations: -Continue daptomycin 600 mg IV daily (~12 mg/kg IV daily) given VRE dapto OSVALDO 4. Discussed dosing with [facility] pharmacist. -CK 12 on 07/19/23. Check weekly CK to monitor for toxicity. Next check ordered for 07/26 -Discontinued cefepime, metronidazole. Switched to pip-tazo for easier dosing on discharge. (If pt becomes encephalopathic again, can switch back to cefepime and PO metronidazole.) -Continue fluconazole 400 mg PO daily -Final duration of abx will be based on resolution of abscesses on follow-up imaging and clinical improvement. If no improvement, he may need additional source control/drainage. -On discharge, may favor continuing IV antibiotics rather than switching to PO, for a couple reasons: 1. It is unknown how long he will be on antibiotics, so would hesitate to discharge him on a prolonged course of linezolid (for VRE coverage) and metronidazole, as he may experience adverse effects. 2. He still has sizeable intra-abdominal fluid collections at this time and would want to en sure good PO antibiotic absorption (although most absorption happens in duodenum and jejunum, so pt would likely be fine with PO) -Can get follow-up CT in 1-2 weeks to follow-up abdominal fluid collections, assuming he remains clinically stable. ID will continue to follow. Please page [facility] Call Center with further questions. Admission and Anticipated Discharge Date Admission Date: June 28, 2023 Subjective This patient recommendation is based on a telemedicine consult request which was completed asynchronously through chart review and information provided by the primary physician. The patient was not seen or examined today. The evaluation is consultative in nature and all patient care and treatment decisions can either be accepted or rejected by the patient's primary hospital-based treating physician using their own independent medical judgment for their patient. Time Spent Reviewing Chart: 11 - 20 minutes Afebrile No acute events Review of System Patient not seen Physical Exam Physical Exam: Patient not seen Results & Data Vital Signs (Past 12 Hours) Vital Signs Temp Pulse Resp BP Pulse Ox O2 Del Method 07/22/23 08:03 36.5 C 94 H 18 133/83 95 Room Air 07/22/23 08:00 Room Air Medications Administered Current Inpatient Medications Acetaminophen (Acetaminophen 325 Mg Tab) 650 mg PO Q4H PRN PRN Reason: Pain Stop: 08/20/23 09:12 Last Admin: 07/21/23 20:40 Dose: 650 mg Famotidine (Famotidine 20 Mg Tab) 20 mg PO BID [facility] Stop: 08/15/23 20:59 Last Admin: 07/22/23 08:16 Dose: 20 mg Fluconazole (Fluconazole 100 Mg Tab) 400 mg PO DAILY [facility] Stop: 07/24/23 17:29 Last Admin: 07/22/23 08:17 Dose: 400 mg Heparin Sodium (Beef Lung) (Heparin 10 Unit/Ml 5 Ml Flush) 5 ml FLUSH PRN PRN PRN Reason: Flush Stop: 08/04/23 14:27 Last Admin: 07/21/23 00:18 Dose: 5 ml Heparin Sodium (Porcine) (Heparin Sod 5,000 Unit/0.5 Ml Vial) 5,000 units SQ Q12 [facility] Stop: 08/07/23 08:59 Last Admin: 07/22/23 08:16 Dose: 5,000 units Daptomycin 600 mg/ Syringe 12 mls @ 4.75 mls/min IV Q24H [facility]; Protocol Stop: 07/31/23 06:59 Last Admin: 07/22/23 06:29 Dose: 4.75 mls/min Piperacillin Sod/Tazobactam (Sod 4.5 gm/ Dextrose) 100 mls @ 25 mls/hr IV Q8H [facility]; Protocol Stop: 08/01/23 15:59 Melatonin (Melatonin 3 Mg Tab) 3 mg PO HS [facility] Stop: 08/12/23 20:59 Last Admin: 07/21/23 20:40 Dose: 3 mg Ondansetron HCl (Ondansetron Inj 2 Mg/Ml 2 Ml Vial) 4 mg IV Q6H PRN PRN Reason: Nausea And Vomiting Stop: 07/29/23 10:07 Last Admin: 07/19/23 22:56 Dose: 4 mg Oxycodone/Acetaminophen (Oxycodone/Acetaminophen 5mg/325mg Tab) 1 tab PO Q4H PRN PRN Reason: Pain Stop: 08/04/23 09:30 Last Admin: 07/22/23 06:35 Dose: 1 tab Potassium Chloride (Potassium Chloride Crtab 20 Meq Tabcr) 20 meq PO DAILY [facility] Stop: 07/24/23 09:01 Last Admin: 07/22/23 08:20 Dose: 20 meq Sucralfate (Sucralfate 1 Gm/10 Ml Udc) 1 gm PO QID [facility] Stop: 08/20/23 12:59 Last Admin: 07/22/23 08:17 Dose: 1 gm (5) Ulcerative colitis Ulcerative colitis location: ulcerative pancolitis Digestive disease complication type: with abscess Qualified Code(s): K51.014 - Ulcerative (chronic) pancolitis with abscess
--- NOTE | 2023-07-22 12:56 | Surgery Progress Note ---
Date of Service July 22, 2023 Assessment & Plan (1) S/P colon resection: Plan: con't vac will need IV abx per ID IR drain in place will need repeat CT Present on Admission?: Yes Admission and Anticipated Discharge Date Admission Date: June 28, 2023 Subjective patient without complaints Review of Systems Constitutional: no fever and no chills Gastrointestinal: no nausea and no vomiting Physical Exam Constitutional: + thin Eyes: PERRL, conjunctivae normal, anicteric sclerae Neck: trachea midline Respiratory: normal respiratory effort, lungs clear to auscultation Cardiovascular: RRR, no murmur, no edema Gastrointestinal (Abdomen): Inspection/Auscultation: normal bowel sounds and + abdominal surgical incision (wound vac in place); abdomen not distended Percussion/Palpation: abdomen soft; no guarding and abdomen not rigid ostomy pink and patent, some succus preent Results & Data Vital Signs (Past 12 Hours) Vital Signs Temp Pulse Resp BP Pulse Ox O2 Del Method 07/22/23 08:03 36.5 C 94 H 18 133/83 95 Room Air 07/22/23 08:00 Room Air
[2023-07-22] MEDS ORDERED: ALTEPLASE, RECOMBINANT 1 MG/ML 2ML VIAL INSTIL ONE (15:28)
[2023-07-22] MEDS: PIPERACILLIN/TAZOBACTAM 4.5 GM in DEXTROSE 5% MINI-B 100 ML IV SCH (18:30)
[2023-07-22] MEDS: MELATONIN 3 MG TAB PO SCH (21:03)
[2023-07-23] MEDS: PIPERACILLIN/TAZOBACTAM 4.5 GM in DEXTROSE 5% MINI-B 100 ML IV SCH ×3 (02:04→18:14)
[2023-07-23] MEDS: DAPTOmycin 600 MG in SYRINGE 0 ML IV SCH (06:01)
[2023-07-23 06:17] LABS: Hematocrit (blood only) 33.5 % (42.0-52.0); Hemoglobin 10.6 g/dl (14.0-18.0); Mean Corpuscular Hemoglobin 28.9 pg (25.0-34.0); Mean Corpuscular Hgb Conc 31.6 g/dL (32.0-36.0); Mean Corpuscular Volume 91.3 fL (80.0-100.0); Mean Platelet Volume 9.4 fL (9.4-12.4); Platelet Count 427 K/uL (130-400); RDW Coefficient of Variation 16.7 % (11.5-14.5); RDW Standard Deviation 54.8 fL (36.4-46.3); Red Blood Count 3.67 M/uL (4.70-6.10); White Blood Count 21.11 K/ul (4.8-10.8)
[2023-07-23] MEDS: FLUCONAZOLE 100 MG TAB PO SCH (08:22)
[2023-07-23] MEDS: POTASSIUM CHLORIDE CRTAB 20 MEQ TABCR PO SCH (08:23)
[2023-07-23] MEDS: HEPARIN SOD 5,000 UNIT/0.5 ML VIAL SQ SCH ×3 (08:23→20:37)
[2023-07-23] MEDS: SUCRALFATE 1 GM/10 ML UDC PO SCH ×4 (08:25→20:33)
[2023-07-23] MEDS: FAMOTIDINE 20 MG TAB PO SCH ×2 (08:28→20:33)
--- NOTE | 2023-07-23 11:05 | Surgery Progress Note ---
Date of Service July 23, 2023 Assessment & Plan (1) S/P colon resection: Plan: POD # 25 ex lap , subtotal colectomy for perforated dailey ulcerative colitis and ileostomy formation Leukocytosis of 21k today( last checked 2 days ago at 12k) afebrile Repeat ct scan on 07/19 with decreasing size of intra-abdominal abscesses LUQ IR drain catheter dislodged slightly and kinked Plan: LUQ IR drain needs replaced, IR will replace today con't vac per wound care continue IV antibiotics, will need IV abx per ID on discharge Continue medical management Would see how he does over weekend and trend of WBC with LUQ IR drain replacement. Question if he would need any surgical intervention for persistent intra-abdominal abscesses?. Would like to avoid surgical intervention if possible. Discussed with Dr. Garcia who agrees with above. Admission and Anticipated Discharge Date Admission Date: June 28, 2023 Subjective "feeling about the same" no abdominal pain guard at bedside said he vomited this morning after his morning meds. Per nurse she crushed potassium and gave in applesauce and he did not tolerated, no persistent vomiting ostomy still functioning no fevers or chills Physical Exam Constitutional: + thin, + cachectic, + frail appearing, cooperative and comfortable; no acute distress and not ill appearing Respiratory: normal respiratory effort; no respiratory distress, no labored breathing, no retractions and no cough Gastrointestinal (Abdomen): Inspection/Auscultation: abdomen normal to inspection, + abdominal surgical incision (clean/dry/intact) and + hypoactive bowel sounds; abdomen not distended and + abnormal bowel sounds Percussion/Palpation: abdomen nontender, no guarding, abdomen not rigid and + abdomen not soft RLQ ostomy with liquid stool and gas Midline incision superior intact, no erythema, inferior wound inspected with Asha Newman wound care nurse, healthy granulation tissue, no necrosis no signs of infection LUQ IR drain in place with purulent drainage in bag Skin: no rashes, warm and dry Psychiatric: Orientation: alert and oriented x 3 Results & Data Vital Signs (Past 12 Hours) Vital Signs Temp Pulse Resp BP Pulse Ox O2 Del Method 07/23/23 07:24 36.5 C 91 H 16 127/87 100 Room Air Laboratory Results 07/23/23 Range/Units 05:34 WBC 21.11 H (4.8-10.8) K/ul RBC 3.67 L (4.70-6.10) M/uL Hgb 10.6 L (14.0-18.0) g/dl Hct 33.5 L (42.0-52.0) % MCV 91.3 (80.0-100.0) fL MCH 28.9 (25.0-34.0) pg MCHC 31.6 L (32.0-36.0) g/dL RDW Std Deviation 54.8 H (36.4-46.3) fL RDW Coeff of Ashley 16.7 H (11.5-14.5) % Plt Count 427 H (130-400) K/uL MPV 9.4 (9.4-12.4) fL
--- NOTE | 2023-07-23 14:25 | CT Scan Report ---
CT-guided left upper quadrant abscess drain exchange INDICATION: Dislodged/kinked left upper quadrant abscess drain with residual abscess collection PROCEDURE: Procedure and risks were explained. Informed consent was obtained. A final timeout was com pleted. The patient was placed supine on the CT exam table. The existing left upper quadrant drain an d an abdomen was prepped and draped in sterile fashion. 1% lidocaine was utilized for skin anesthesia . Utilizing CT guidance, a 0.035 Amplatz wire was introduced through the existing [address] [address] imaging demonstrated adequate wire position. A new 10 [place]ese locking pigtail catheter was a dvanced over the wire and secured to the skin with 2-0 silk. The pigtail catheter was flushed multipl e times and placed to suction bag drainage. The patient tolerated the procedure well. Postprocedure C T imaging demonstrates adequate pigtail position. Vital signs will be monitored postprocedure. IMPRESSION: Replacement of the left upper quadrant abscess drain as detailed above. Performed, dictated, and signed by Star Waller PA-C; to be co-signed by Dr. Sudhakar Ambrose. Electronically signed by: Sudhakar Ambrose M.D. 07/23/2023 9:48 PM
--- NOTE | 2023-07-23 15:06 | Infectious Disease Progress Nt ---
Date of Service July 23, 2023 Assessment & Plan (1) Encephalopathy: (2) Sepsis: (3) S/P colon resection: (4) Pneumoperitoneum: (5) Ulcerative colitis: (6) Perforated abdominal viscus: Plan Micro 07/08 UCx NG 07/06 Abd fluid cx: PsA #1, PsA #2 (dailey-sensitive), VRE (S dapto, OSVALDO 4) 06/28 Abd fluid cx: PsA, C albicans/dub, MSSA 06/28 BCx x2: NG Abx/Antifungals: Dapto 07/12 - ongoing Zosyn 06/28-07/09, 07/22 - ongoing Flucon 07/14- ongoing Cefepime 06/28, 07/11-07/22 flagyl 06/28, 07/12- 07/22 Caspofungin 06/29-07/10 Problems: # Polymicrobial Feculent Peritonitis s/p ruptured viscous: MSSA, PsA, VRE, Mariely alb/dub # Multiple abdominal abscess s/p IR drain placement # Ulcerative Pancolitis # Persistent Leukocytosis 53 yo incarcerated M recently diagnosed with ulcerative pancolitis, started on prednisone and mesalamine who presented on 06/28 with abdominal pain and vomiting, found to have perforated viscous with pneumoperitoneum and secondary polymicrobial feculent peritonitis s/p ex-lap, subtotal colectomy, and ileostomy (06/28). He was found to have multiple areas of perforation w/in the cecum/transverse/sigmoid colon with feculent peritonitis with multiple abscesses throughout the abdominal cavity. DAVID drains placed. Abd fluid cx + for Mariely albicans/dubliniensis, MSSA and PsA. He received Zosyn and Caspofungin. His hospital course c/b persistent leukocytosis and progressive encephalopathy. Repeat CTAB 07/05 showed persistent collections in the abdomen. He underwent LUQ fluid collection drain placement by IR on 07/06, which grew 2 strains of PSA and VRE. Abx were switched to cefepime, flagyl and Daptomycin. It was felt that Zosyn may be contributing to confusion. Head CT was unremarkable. MS improved on Cefepime. CT A/P with IV contrast on 07/19 showed numerous large residual intra-abdominal fluid collections, modestly decreased in size. Leukocytosis overall improved, but increased to 21.1 on 07/23. LUQ drain noted to be dislodged/kinked, so LUQ replaced by IR on 07/23. Recommendations: -Increased leukocytosis today likely in the setting of LUQ drain being dislodged/kinked. Anticipate improvement with drain replacement -Continue daptomycin 600 mg IV daily (~12 mg/kg IV daily) given VRE dapto OSVALDO 4. Discussed dosing with [facility] pharmacist. -CK 12 on 07/19/23. Check weekly CK to monitor for toxicity. Next check ordered for 07/26 -Continue pip-tazo (switched from cefepime and metronidazole, for easier dosing on discharge. However, if pt becomes encephalopathic again, can switch back to cefepime and PO metronidazole.) -Continue fluconazole 400 mg PO daily -Final duration of abx will be based on resolution of abscesses on follow-up imaging and clinical improvement. If no improvement, he may need additional source control/drainage. -On discharge, may favor continuing IV antibiotics rather than switching to PO, for a couple reasons: 1. It is unknown how long he will be on antibiotics, so would hesitate to discharge him on a prolonged course of linezolid (for VRE coverage) and metronidazole, as he may experience adverse effects. 2. He still has sizeable intra-abdominal fluid collections at this time and would want to ensure good PO antibiotic absorption (although most absorption happens in duodenum and jejunum, so pt would likely be fine with PO) -Can get follow-up CT in 1-2 weeks to follow-up abdominal fluid collections, assuming he remains clinically stable. ID will continue to follow. Please note that there will be no ID notes over the weekend. If questions or concerns arise, please contact the Infectious Disease Call Center and ask to speak with the covering ID physician. Dr. Claudy Vargas will take over on Wednesday. Admission and Anticipated Discharge Date Admission Date: June 28, 2023 Subjective This patient recommendation is based on a telemedicine consult request which was completed asynchronously through chart review and information provided by the primary physician. The patient was not seen or examined today. The evaluation is consultative in nature and all patient care and treatment decisions can either be accepted or rejected by the patient's primary hospital-based treating physician using their own independent medical judgment for their patient. Time Spent Reviewing Chart: 11 - 20 minutes Patient not seen Afebrile WBC increased to 21.1 LUQ abscess drain dislodged/kinked. LUQ drain replaced today Review of System Patient not seen Physical Exam Physical Exam: Patient not seen Results & Data Vital Signs (Past 12 Hours) Vital Signs Temp Pulse Resp BP Pulse Ox O2 Del Method 07/23/23 07:50 Room Air 07/23/23 07:24 36.5 C 91 H 16 127/87 100 Room Air Laboratory Results Short CBC 07/23/23 Range/Units 05:34 WBC 21.11 H (4.8-10.8) K/ul Hgb 10.6 L (14.0-18.0) g/dl Hct 33.5 L (42.0-52.0) % Plt Count 427 H (130-400) K/uL Diagnostic Findings Drainage Catheter Insertion 07/23/23 11:31 CT-guided left upper quadrant abscess drain exchange INDICATION: Dislodged/kinked left upper quadrant abscess drain with residual abscess collection PROCEDURE: Procedure and risks were explained. Informed consent was obtained. A final timeout was completed. The patient was placed supine on the CT exam table. The existing left upper quadrant drain and an abdomen was prepped and draped in sterile fashion. 1% lidocaine was utilized for skin anesthesia. Utilizing CT guidance, a 0.035 Amplatz wire was introduced through the existing [address] imaging demonstrated adequate wire position. A new 10 [place] locking pigtail catheter was advanced over the wire and secured to the skin with 2-0 silk. The pigtail catheter was flushed multiple times and placed to suction bag drainage. The patient tolerated the procedure well. Postprocedure CT imaging demonstrates adequate pigtail position. Vital signs will be monitored postprocedure. IMPRESSION: Replacement of the left upper quadrant abscess drain as detailed above. Performed, dictated, and signed by Star Waller PA-C; to be co-signed by Dr. Sudhakar Ambrose. Medications Administered Current Inpatient Medications Acetaminophen (Acetaminophen 325 Mg Tab) 650 mg PO Q4H PRN PRN Reason: Pain Stop: 08/20/23 09:12 Last Admin: 07/21/23 20:40 Dose: 650 mg Famotidine (Famotidine 20 Mg Tab) 20 mg PO BID [facility] Stop: 08/15/23 20:59 Last Admin: 07/23/23 08:28 Dose: 20 mg Fluconazole (Fluconazole 100 Mg Tab) 400 mg PO DAILY [facility] Stop: 07/24/23 17:29 Last Admin: 07/23/23 08:22 Dose: 400 mg Heparin Sodium (Beef Lung) (Heparin 10 Unit/Ml 5 Ml Flush) 5 ml FLUSH PRN PRN PRN Reason: Flush Stop: 08/04/23 14:27 Last Admin: 07/23/23 14:32 Dose: 5 ml Heparin Sodium (Porcine) (Heparin Sod 5,000 Unit/0.5 Ml Vial) 5,000 units SQ Q12 [facility] Stop: 08/07/23 08:59 Last Admin: 07/23/23 08:32 Dose: Not Given Daptomycin 600 mg/ Syringe 12 mls @ 4.75 mls/min IV Q24H [facility]; Protocol Stop: 07/31/23 06:59 Last Admin: 07/23/23 06:01 Dose: 4.75 mls/min Piperacillin Sod/Tazobactam (Sod 4.5 gm/ Dextrose) 100 mls @ 25 mls/hr IV Q8H [facility]; Protocol Stop: 08/01/23 15:59 Last Infusion: 07/23/23 14:51 Dose: Infused Melatonin (Melatonin 3 Mg Tab) 3 mg PO HS [facility] Stop: 08/12/23 20:59 Last Admin: 07/22/23 21:03 Dose: 3 mg Ondansetron HCl (Ondansetron Inj 2 Mg/Ml 2 Ml Vial) 4 mg IV Q6H PRN PRN Reason: Nausea And Vomiting Stop: 07/29/23 10:07 Last Admin: 07/19/23 22:56 Dose: 4 mg Oxycodone/Acetaminophen (Oxycodone/Acetaminophen 5mg/325mg Tab) 1 tab PO Q4H PRN PRN Reason: Pain Stop: 08/04/23 09:30 Last Admin: 07/22/23 06:35 Dose: 1 tab Potassium Chloride (Potassium Chloride Crtab 20 Meq Tabcr) 20 meq PO DAILY [facility] Stop: 07/24/23 09:01 Last Admin: 07/23/23 08:23 Dose: 20 meq Sucralfate (Sucralfate 1 Gm/10 Ml Udc) 1 gm PO QID [facility] Stop: 08/20/23 12:59 Last Admin: 07/23/23 14:31 Dose: Not Given (5) Ulcerative colitis Ulcerative colitis location: ulcerative pancolitis Digestive disease complication type: with abscess Qualified Code(s): K51.014 - Ulcerative (chronic) pancolitis with abscess
--- NOTE | 2023-07-23 17:22 | Hospitalist Progress Note ---
Date of Service July 23, 2023 Assessment & Plan (1) Perforated abdominal viscus: Plan: pt with recent diagnosis of Ulcerative colitis, and had sessile polyp biopsied. Presented with free air, to OR 06/28/23 with colon resection, subtotal colectomy and ileostomy. Three areas of perforation were identified, abscess and feculent material seen. Pseudomonas and Enterococcus faecium isolated. right upper quadrant drain has been removed. IR drain remains and continues to drain in luq manipulate on 07/23/[address] scan 07/19 shows persistent fluid collections consistent with abscess 07/23/2023 shows a leukocytosis Infectious disease initial recommendations -Increased daptomycin to 600 mg IV daily -Continue cefepime 2 g IV q8h, metronidazole 500 mg IV q8h, fluconazole 400 mg PO daily -Final duration of abx will be based on resolution of abscesses on follow-up imaging and clinical improvement. will need to coordinate with shelter to see if they are capable to take care of patient with jail antibiotic recommendations wound VAC in place, interventional radiology drain in place,patient's oral intake is poor -Patient will need repeat CT scan in about 2 weeks Placed wound vac, needs replaced every 3 days, (07/22) (2) Acute blood loss anemia: Plan: Postoperatively. stable (3) Hard of hearing: Plan: Supportive care (4) Encephalopathy: Plan: Acute encephalopathy, probably metabolic. Now resolved. Continue supportive care. Head CT scan negative. (5) Acute kidney injury: Plan: resolved . encourage po intake Plan Need to discuss if able to return to shelter or if there is another alternative Admission and Anticipated Discharge Date Admission Date: June 28, 2023 Subjective pt states he feels about the same, no real appetite, says all food does not taste good to him, wants to try a hot dog LUQ abscess drain dislodged/kinked. LUQ drain replaced 07/23/23 Physical Exam Physical Exam: cardiac exam is regular lungs are clear abd with functioning ostomy in Right side, has wound vacc and drain Results & Data Results & Data Vital Signs (Past 12 Hours) Vital Signs Temp Pulse Resp BP Pulse Ox O2 Del Method 07/23/23 16:23 98.2 F 83 16 131/86 98 Room Air 07/23/23 15:39 98.1 F 85 16 135/89 99 Room Air 07/23/23 07:50 Room Air 07/23/23 07:24 97.7 F 91 H 16 127/87 100 Room Air Laboratory Results reviewed CBC worsening leukocytosis PG Care Time/CCT Total # of Minutes Spent Total Time Spent with Patient: Total time spent is greater than 50% in coordination of care (as documented) at patient's floor/unit and/or counseling patient: Coding Level of Care Code 96821 SUB INP/OBS CARE 2/35MIN Diagnoses Perforated abdominal viscus R19.8 Acute blood loss anemia D62 Bilateral hearing loss, unspecified hearing loss type H91.93 Hearing loss type: unspecified Laterality: bilateral Encephalopathy G93.40 Acute kidney injury N17.9 (3) Hard of hearing Hearing loss type: unspecified Laterality: bilateral Qualified Code(s): H91.93 - Unspecified hearing loss, bilateral
[2023-07-23] MEDS: MELATONIN 3 MG TAB PO SCH (20:33)
[2023-07-24] MEDS: PIPERACILLIN/TAZOBACTAM 4.5 GM in DEXTROSE 5% MINI-B 100 ML IV SCH ×3 (02:14→17:38)
[2023-07-24] MEDS: DAPTOmycin 600 MG in SYRINGE 0 ML IV SCH (06:10)
[2023-07-24] MEDS: POTASSIUM CHLORIDE CRTAB 20 MEQ TABCR PO SCH (09:40)
[2023-07-24] MEDS: FAMOTIDINE 20 MG TAB PO SCH ×2 (09:41→20:30)
[2023-07-24] MEDS: SUCRALFATE 1 GM/10 ML UDC PO SCH ×4 (09:41→20:29)
[2023-07-24] MEDS: FLUCONAZOLE 100 MG TAB PO SCH (09:41)
[2023-07-24] MEDS: HEPARIN SOD 5,000 UNIT/0.5 ML VIAL SQ SCH ×2 (09:42→20:34)
--- NOTE | 2023-07-24 12:24 | Surgery Progress Note ---
Date of Service July 24, 2023 Assessment & Plan (1) Ileostomy in place: Plan: He seems to be stable from a surgical standpoint and can likely be discharged back to the longterm if they are able to care for him with his IV antibiotics, wound VAC and ostomy If his white count remains elevated, can see if IR will drain any of the other intra-abdominal abscesses that were seen on his most recent CT scan (2) S/P colon resection: Admission and Anticipated Discharge Date Admission Date: June 28, 2023 Subjective Patient seen and examined. States his abdomen feels pretty good. No nausea or vomiting. His ostomy bag had a blow out this morning. Physical Exam Constitutional: WD/WN, vitals as above Gastrointestinal (Abdomen): Wound VAC in place with good suction Ostomy functioning, healthy Results & Data Vital Signs (Past 12 Hours) Vital Signs Temp Pulse Resp BP Pulse Ox O2 Del Method 07/24/23 07:38 36.4 C L 80 16 128/86 99 Room Air PG Care Time/CCT Total # of Minutes Spent Total Time Spent with Patient: Total time spent is greater than 50% in coordination of care (as documented) at patient's floor/unit and/or counseling patient: Coding Level of Care Code 21158 Post Operative Follow-Up Diagnoses Ileostomy in place Z93.2 S/P colon resection Z90.49
--- NOTE | 2023-07-24 13:32 | Hospitalist Progress Note ---
Date of Service July 24, 2023 Assessment & Plan (1) Perforated abdominal viscus: Plan: pt with recent diagnosis of Ulcerative colitis, and had sessile polyp biopsied. Presented with free air, to OR 06/28/23 with colon resection, subtotal colectomy and ileostomy. Three areas of perforation were identified, abscess and feculent material seen. Pseudomonas and Enterococcus faecium isolated. right upper quadrant drain has been removed. IR drain remains and continues to drain in luq manipulate on 07/23/[address] scan 07/19 shows persistent fluid collections consistent with abscess 07/23/2023 shows a leukocytosis Infectious disease initial recommendations -Increased daptomycin to 600 mg IV daily -zosyn, fluconazole 400 mg PO daily -Final duration of abx will be based on resolution of abscesses on follow-up imaging and clinical improvement. will need to coordinate with shelter to see if they are capable to take care of patient with [facility] antibiotic recommendations wound VAC in place, interventional radiology drain in pl keli,patient's oral intake is poor -Patient will need repeat CT scan in about 2 weeks Placed wound vac, needs replaced every 3 days, (2) Acute blood loss anemia: Plan: Postoperatively. stable (3) Hard of hearing: Plan: Supportive care (4) Encephalopathy: Plan: Acute encephalopathy, probably metabolic. Now resolved. Continue supportive care. Head CT scan negative. (5) Acute kidney injury: Plan: resolved . encourage po intake Plan Need to discuss if able to return to shelter with complexity of care, with 2 iv antibiotics, wound vac, ostomy and IR drain in place Admission and Anticipated Discharge Date Admission Date: June 28, 2023 Subjective pt is improved did eat a hot dog on 07/23, oral intake is not great says food does not taste good to him had IR drain repositioned 07/23 with improved output Physical Exam Physical Exam: cardiac exam is regular lungs are clear abd with functioning ostomy in Right side, has wound vacc and drain Results & Data Results & Data Vital Signs (Past 12 Hours) Vital Signs Temp Pulse Resp BP Pulse Ox O2 Del Method 07/24/23 07:38 97.5 F L 80 16 128/86 99 Room Air PG Care Time/CCT Total # of Minutes Spent Total Time Spent with Patient: Total time spent is greater than 50% in coordination of care (as documented) at patient's floor/unit and/or counseling patient: Coding Level of Care Code 37553 SUB INP/OBS CARE 235MIN Diagnoses Perforated abdominal viscus R19.8 Acute blood loss anemia D62 Bilateral hearing loss, unspecified hearing loss type H91.93 Hearing loss type: unspecified Laterality: bilateral Encephalopathy G93.40 Acute kidney injury N17.9 (3) Hard of hearing Hearing loss type: unspecified Laterality: bilateral Qualified Code(s): H91.93 - Unspecified hearing loss, bilateral
[2023-07-24] MEDS: MELATONIN 3 MG TAB PO SCH (20:30)
[2023-07-25] MEDS: PIPERACILLIN/TAZOBACTAM 4.5 GM in DEXTROSE 5% MINI-B 100 ML IV SCH ×3 (02:25→17:07)
[2023-07-25] MEDS: DAPTOmycin 600 MG in SYRINGE 0 ML IV SCH (06:11)
[2023-07-25 08:42] LABS: Hemoglobin 10.6 g/dl (14.0-18.0); Mean Corpuscular Hemoglobin 28.7 pg (25.0-34.0); Mean Corpuscular Hgb Conc 31.2 g/dL (32.0-36.0); Mean Corpuscular Volume 92.1 fL (80.0-100.0); Mean Platelet Volume 9.2 fL (9.4-12.4); Platelet Count 480 K/uL (130-400); RDW Coefficient of Variation 17.2 % (11.5-14.5); RDW Standard Deviation 57.6 fL (36.4-46.3); Red Blood Count 3.69 M/uL (4.70-6.10); White Blood Count 14.02 K/ul (4.8-10.8)
[2023-07-25 09:03] LABS: BUN Creatinine Ratio 11.1 (10-20); Calcium 8.4 mg/dl (8.6-10.3); Creatinine Clr Calc Pharmacy 27.3 ml/min; Est GFR (African American) 36.7 ml/min; Est GFR (Non-African American) 31.7 ml/min; Phosphorus 2.4 mg/dl (2.5-4.9); Potassium 3.2 mmol/L (3.5-5.1)
[2023-07-25] MEDS: SUCRALFATE 1 GM/10 ML UDC PO SCH ×4 (09:40→20:28)
[2023-07-25] MEDS: FAMOTIDINE 20 MG TAB PO SCH ×2 (09:40→20:28)
[2023-07-25] MEDS: HEPARIN SOD 5,000 UNIT/0.5 ML VIAL SQ SCH ×2 (09:40→20:29)
--- NOTE | 2023-07-25 10:52 | Surgery Progress Note ---
Date of Service July 25, 2023 Assessment & Plan (1) Ileostomy in place: Plan: His white count is improved today Continue wound VAC and IR drain He remains stable from a surgical standpoint he can be discharged back to the alf once medically cleared (2) S/P colon resection: Admission and Anticipated Discharge Date Admission Date: June 28, 2023 Subjective Patient seen and examined. No acute events overnight. Afebrile. Still has ostomy function and tolerating diet. Physical Exam Constitutional: WD/WN, vitals as above Gastrointestinal (Abdomen): Wound VAC in place with good suction Ostomy functioning, healthy Results & Data Vital Signs (Past 12 Hours) Vital Signs Temp Pulse Resp BP Pulse Ox O2 Del Method 07/25/23 10:32 Room Air 07/25/23 08:36 36.9 C 102 H 16 133/91 100 Room Air PG Care Time/CCT Total # of Minutes Spent Total Time Spent with Patient: Total time spent is greater than 50% in coordination of care (as documented) at patient's floor/unit and/or counseling patient: Coding Level of Care Code 11361 Post Operative Follow-Up Diagnoses Ileostomy in place Z93.2 S/P colon resection Z90.49
--- NOTE | 2023-07-25 15:25 | Hospitalist Progress Note ---
Date of Service July 25, 2023 Assessment & Plan (1) Perforated abdominal viscus: Plan: pt with recent diagnosis of Ulcerative colitis, and had sessile polyp biopsied. Presented with free air, to OR 06/28/23 with colon resection, subtotal colectomy and ileostomy. Three areas of perforation were identified, abscess and feculent material seen. Pseudomonas and Enterococcus faecium isolated. right upper quadrant drain has been removed. IR drain remains and continues to drain in luq manipulate on 07/23/[address] scan 07/19 shows persistent fluid collections consistent with abscess 07/23/2023 shows a leukocytosis Infectious disease initial recommendations -Increased daptomycin to 600 mg IV daily -zosyn, fluconazole 400 mg PO daily -Final duration of abx will be based on resolution of abscesses on follow-up imaging and clinical improvement. 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 stable (3) Hard of hearing: Plan: Supportive care (4) Encephalopathy: Plan: Acute encephalopathy, probably metabolic. Now resolved. Continue supportive care. Head CT scan negative. (5) Acute kidney injury: Plan: once again noted 07/25 with repeat labs pending , maybe atn due to poor po intake Plan Need to discuss if able to return to assisted with complexity of care, with 2 iv antibiotics, wound vac, ostomy and IR drain in place Admission and Anticipated Discharge Date Admission Date: June 28, 2023 Subjective Patient seen and examined. No acute events overnight. Afebrile. Still has ostomy function and tolerating diet. Cr is up some maybe due to decreased hydration will recheck if high janeth consider some IVF Physical Exam Physical Exam: cardiac exam is regular lungs are clear abd with functioning ostomy in Right side, has wound vacc and drain Results & Data Results & Data Vital Signs (Past 12 Hours) Vital Signs Temp Pulse Resp BP Pulse Ox O2 Del Method 07/25/23 15:23 98.2 F 77 16 137/89 100 Room Air 07/25/23 10:32 Room Air 07/25/23 08:36 98.4 F 102 H 16 133/91 100 Room Air PG Care Time/CCT Total # of Minutes Spent Total Time Spent with Patient: Total time spent is greater than 50% in coordination of care (as documented) at patient's floor/unit and/or counseling patient: Coding Level of Care Code 84815 SUB INP/OBS CARE 2/35MIN Diagnoses Perforated abdominal viscus R19.8 Acute blood loss anemia D62 Bilateral hearing loss, unspecified hearing loss type H91.93 Hearing loss type: unspecified Laterality: bilateral Encephalopathy G93.40 Acute kidney injury N17.9 (3) Hard of hearing Hearing loss type: unspecified Laterality: bilateral Qualified Code(s): H91.93 - Unspecified hearing loss, bilateral
[2023-07-25 17:07] LABS: Albumin Globulin Ratio 0.7 (0.9-2); Albumin Level 2.4 gm/dl (3.4-5.0); BUN Creatinine Ratio 10.6 (10-20); Bilirubin,Total 0.4 mg/dl (0.2-1.0); Creatinine Clr Calc Pharmacy 27.2 ml/min; Est GFR (African American) 36.5 ml/min; Est GFR (Non-African American) 31.5 ml/min; Globulin 3.4 gm/dl (2.5-4.0); Potassium 3.3 mmol/L (3.5-5.1); Total Protein 5.8 gm/dl (6.0-8.3)
[2023-07-25] MEDS: MELATONIN 3 MG TAB PO SCH (20:28)
[2023-07-26] MEDS: PIPERACILLIN/TAZOBACTAM 4.5 GM in DEXTROSE 5% MINI-B 100 ML IV SCH ×3 (02:00→17:31)
[2023-07-26 06:40] LABS: Creatinine Clr Calc Pharmacy 25.1 ml/min; Est GFR (African American) 33.2 ml/min; Est GFR (Non-African American) 28.6 ml/min
[2023-07-26] MEDS: HEPARIN SOD 5,000 UNIT/0.5 ML VIAL SQ SCH ×2 (07:46→20:30)
[2023-07-26] MEDS: FAMOTIDINE 20 MG TAB PO SCH ×2 (07:46→20:29)
[2023-07-26] MEDS: SUCRALFATE 1 GM/10 ML UDC PO SCH ×4 (07:47→20:29)
[2023-07-26] MEDS ORDERED: SODIUM CHLORIDE 0.9% 500 ML IV ONE (10:07)
[2023-07-26] MEDS ORDERED: MAGNESIUM SULFATE / D5W 1 GM/100 ML BAG IV ONE (10:09)
[2023-07-26] MEDS ORDERED: SODIUM CHLORIDE 0.9% 1,000 ML IV SCH (10:15)
[2023-07-26] MEDS: POTASSIUM CHLORIDE CRTAB 20 MEQ TABCR PO STA ×2 (10:29→10:37)
[2023-07-26] MEDS: POTASSIUM CHLORIDE / WTR 10 MEQ/100 ML PLCT IV SCH ×3 (12:20→14:19)
--- NOTE | 2023-07-26 14:37 | Infectious Disease Progress Nt ---
Date of Service July 26, 2023 Assessment & Plan (1) Encephalopathy: (2) Sepsis: (3) S/P colon resection: (4) Pneumoperitoneum: (5) Ulcerative colitis: (6) Perforated abdominal viscus: Plan Micro 07/08 UCx NG 07/06 Abd fluid cx: PsA #1, PsA #2 (dailey-sensitive), VRE (S dapto, OSVALDO 4) 06/28 Abd fluid cx: PsA, C albicans/dub, MSSA 06/28 BCx x2: NG Abx/Antifungals: Dapto 07/12 - ongoing Zosyn 06/28-07/09, 07/22 - ongoing Flucon 07/14- ongoing Cefepime 06/28, 07/11-07/22 flagyl 06/28, 07/12- 07/22 Caspofungin 06/29-07/10 Problems: # Polymicrobial Feculent Peritonitis s/p ruptured viscous: MSSA, PsA, VRE, Mariely alb/dub # Multiple abdominal abscess s/p IR drain placement # Ulcerative Pancolitis # Persistent Leukocytosis 53 yo incarcerated M recently diagnosed with ulcerative pancolitis, started on prednisone and mesalamine who presented on 06/28 with abdominal pain and vomiting, found to have perforated viscous with pneumoperitoneum and secondary polymicrobial feculent peritonitis s/p ex-lap, subtotal colectomy, and ileostomy (06/28). He was found to have multiple areas of perforation w/in the cecum/transverse/sigmoid colon with feculent peritonitis with multiple abscesses throughout the abdominal cavity. DAVID drains placed. Abd fluid cx + for Mariely albicans/dubliniensis, MSSA and PsA. He received Zosyn and Caspofungin. His hospital course c/b persistent leukocytosis and progressive encephalopathy. Repeat CTAB 07/05 showed persistent collections in the abdomen. He underwent LUQ fluid collection drain placement by IR on 07/06, which grew 2 strains of PSA and VRE. Abx were switched to cefepime, flagyl and Daptomycin. It was felt that Zosyn may be contributing to confusion. Head CT was unremarkable. MS improved on Cefepime. CT A/P with IV contrast on 07/19 showed numerous large residual intra-abdominal fluid collections, modestly decreased in size. Leukocytosis overall improved, but increased to 21.1 on 07/23. LUQ drain noted to be dislodged/kinked, so LUQ replaced by IR on 07/23. WBc down to 14 as of 07/25, improved with drain replacement Recommendations: -Continue daptomycin 600 mg IV daily (~12 mg/kg IV daily CHANGED TO q 48 given increased cr ) given VRE dapto OSVALDO 4. Adjust dose based on renal fxn -CK 12 on 07/19/23. Check weekly CK to monitor for toxicity. Next check ordered for 07/27 -monitor creatinine -Continue pip-tazo (switched from cefepime and metronidazole, for easier dosing on discharge. However, if pt becomes encephalopathic again, can switch back to cefepime and PO metronidazole.) -Continue fluconazole 400 mg PO daily -Final duration of abx will be based on resolution of abscesses on follow-up imaging and clinical improvement. If no improvement, he may need additional source control/drainage. -On discharge, may favor continuing IV antibiotics rather than switching to PO, for a couple reasons: 1. It is unknown how long he will be on antibiotics, so would hesitate to discharge him on a prolonged course of linezolid (for VRE coverage) and metronidazole, as he may experience adverse effects. 2. He still has sizeable intra-abdominal fluid collections at this time and would want to ensure good PO antibiotic absorption (although most absorption happens in duodenum and jejunum, so pt would likely be fine with PO) -Can get follow-up CT in 1-2 weeks to follow-up abdominal fluid collections, assuming he remains clinically stable. ID will continue to follow. Claudy Vargas MD, MPH Infectious Disease [facility], ID Division Call [phone] with questions Admission and Anticipated Discharge Date Admission Date: June 28, 2023 Subjective This patient recommendation is based on a telemedicine consult request which was completed asynchronously through chart review and information provided by the primary physician. The patient was not seen or examined today. The evaluation is consultative in nature and all patient care and treatment decisions can either be accepted or rejected by the patient's primary hospital-based treating physician using their own independent medical judgment for their patient. Time Spent Reviewing Chart: 11 - 20 minutes Patient not seen Afebrile WBC 14.02 on 07/25 Cr increasing - up to 2.46 today Results & Data Vital Signs (Past 12 Hours) Vital Signs Temp Pulse Resp BP Pulse Ox O2 Del Method 07/26/23 07:25 36.7 C 91 H 14 138/88 99 Room Air 07/26/23 07:15 Room Air Laboratory Results Laboratory Results - last 48 hr 07/25/23 07/25/23 07/26/23 08:13 16:13 05:41 WBC 14.02 H RBC 3.69 L Hgb 10.6 L Hct 34.0 L MCV 92.1 MCH 28.7 MCHC 31.2 L RDW Std Deviation 57.6 H RDW Coeff of Ashley 17.2 H Plt Count 480 H MPV 9.2 L Sodium 136 137 Potassium 3.2 L 3.3 L Chloride 104 105 Carbon Dioxide 22 23 Anion Gap 10 9 BUN 25 H 24 H Creatinine 2.26 H 2.27 H 2.46 H Est Cr Clr Drug Dosing 27.3 27.2 25.1 Est GFR ( Amer) 36.7 36.5 33.2 Est GFR (Non-Af Amer) 31.7 31.5 28.6 BUN/Creatinine Ratio 11.1 10.6 Glucose 116 H 103 H Calcium 8.4 L 8.0 L Phosphorus 2.4 L Total Bilirubin 0.4 AST 17 ALT 11 Alkaline Phosphatase 152 H Total Protein 5.8 L Albumin 2.4 L Globulin 3.4 Albumin/Globulin Ratio 0.7 L Diagnostic Findings Microbiology 07/06/23 12:45 Abdomen, Left Upper Quadrant Gram Stain - Final 07/06/23 12:45 Abdomen, Left Upper Quadrant Aerobic and Anaerobic Culture - Final Pseudomonas aeruginosa Enterococcus faecium VRE Pseudomonas aeruginosa#2 07/08/23 21:25 Urine,Clean Catch Urine Culture - Final No growth - less than 1,000 colonies/mL. 06/28/23 18:30 Blood Aerobic Blood Culture - Final No growth in Aerobic bottle after 5 days. 06/28/23 18:30 Blood Anaerobic Blood Culture - Final No growth in Anaerobic bottle after 5 days. 06/28/23 12:58 Blood Aerobic Blood Culture - Final No growth in Aerobic bottle after 5 days. 06/28/23 12:58 Blood Anaerobic Blood Culture - Final No growth in Anaerobic bottle after 5 days. 06/28/23 15:33 Abdomen Gram Stain - Final 06/28/23 15:33 Abdomen Aerobic and Anaerobic Culture - Final Pseudomonas aeruginosa Mariely albicans/dubliniensis Staphylococcus aureus Home Medications Medication Instructions Recorded Confirmed Last Taken mesalamine 4 gram/60 mL enema 4 g (60 mL) ID HS 1 month #1,800 mL 06/22/23 06/28/23 Unknown mesalamine 800 mg tablet,delayed 1,600 mg (2 x 800 mg) PO TID 1 06/22/23 06/28/23 Unknown release month #180 tabs prednisone 20 mg tablet 40 mg (2 x 20 mg) PO DAILY 1 month 06/22/23 06/28/23 Unknown #60 tabs Active Medications Generic Name Dose Route Start Last Admin Trade Name Freq PRN Reason Stop Dose Admin Acetaminophen 650 mg 07/21/23 09:13 07/21/23 20:40 Acetaminophen 325 Mg Tab PO 08/20/23 09:12 650 mg Q4H PRN Administration Pain Famotidine 20 mg 07/16/23 21:00 07/26/23 07:46 Famotidine 20 Mg Tab PO 08/15/23 20:59 20 mg BID HERNESTO Administration Heparin Sodium (Beef Lung) 5 ml 07/05/23 14:28 07/26/23 06:09 Heparin 10 Unit/Ml 5 Ml Flush FLUSH 08/04/23 14:27 5 ml PRN PRN Administration Flush Heparin Sodium (Porcine) 5,000 units 07/08/23 09:00 07/26/23 07:46 Heparin Sod 5,000 Unit/0.5 Ml Vial SQ 08/07/23 08:59 5,000 units Q12 HERNESTO Administration Piperacillin Sod/Tazobactam 100 mls @ 25 mls/hr 07/22/23 16:00 07/26/23 13:45 Sod 4.5 gm/ Dextrose IV 08/01/23 15:59 Infused Q8H HERNESTO Infusion Protocol Sodium Chloride 1,000 mls @ 80 mls/hr 07/26/23 10:15 07/26/23 11:07 Nss IV 07/26/23 22:44 80 mls/hr .[id number] HERNESTO Infusion Potassium Chloride 10 meq in 100 mls @ 100 mls/hr 07/26/23 11:45 07/26/23 14:19 K Yordan / Wtr IV 07/26/23 14:44 100 mls/hr Q1H HERNESTO Administration Melatonin 3 mg 07/13/23 21:00 07/25/23 20:28 Melatonin 3 Mg Tab PO 08/12/23 20:59 3 mg HS HERNESTO Administration Ondansetron HCl 4 mg 06/29/23 10:08 07/19/23 22:56 Ondansetron Inj 2 Mg/Ml 2 Ml Vial IV 07/29/23 10:07 4 mg Q6H PRN Administration Nausea And Vomiting Oxycodone/Acetaminophen 1 tab 07/21/23 09:31 07/22/23 06:35 Oxycodone/Acetaminophen 5mg/325mg Tab PO 08/04/23 09:30 1 tab Q4H PRN Administration Pain Sucralfate 1 gm 07/21/23 13:00 07/26/23 12:15 Sucralfate 1 Gm/10 Ml Udc PO 08/20/23 12:59 1 gm QID HERNESTO Administration Medications Administered Home Medications Medication Instructions Recorded Confirmed Last Taken mesalamine 4 gram/60 mL enema 4 g (60 mL) ID HS 1 month #1,800 mL 06/22/23 06/28/23 Unknown mesalamine 800 mg tablet,delayed 1,600 mg (2 x 800 mg) PO TID 1 06/22/23 06/28/23 Unknown release month #180 tabs prednisone 20 mg tablet 40 mg (2 x 20 mg) PO DAILY 1 month 06/22/23 06/28/23 Unknown #60 tabs Active Medications Generic Name Dose Route Start Last Admin Trade Name Blaiseq PRN Reason Stop Dose Admin Acetaminophen 650 mg 07/21/23 09:13 07/21/23 20:40 Acetaminophen 325 Mg Tab PO 08/20/23 09:12 650 mg Q4H PRN Administration Pain Famotidine 20 mg 07/16/23 21:00 07/26/23 07:46 Famotidine 20 Mg Tab PO 08/15/23 20:59 20 mg BID HERNESTO Administration Heparin Sodium (Beef Lung) 5 ml 07/05/23 14:28 07/26/23 06:09 Heparin 10 Unit/Ml 5 Ml Flush FLUSH 08/04/23 14:27 5 ml PRN PRN Administration Flush Heparin Sodium (Porcine) 5,000 units 07/08/23 09:00 07/26/23 07:46 Heparin Sod 5,000 Unit/0.5 Ml Vial SQ 08/07/23 08:59 5,000 units Q12 HERNESTO Administration Piperacillin Sod/Tazobactam 100 mls @ 25 mls/hr 07/22/23 16:00 07/26/23 13:45 Sod 4.5 gm/ Dextrose IV 08/01/23 15:59 Infused Q8H HERNESTO Infusion Protocol Sodium Chloride 1,000 mls @ 80 mls/hr 07/26/23 10:15 07/26/23 11:07 Nss IV 07/26/23 22:44 80 mls/hr .[id number] HERNESTO Infusion Potassium Chloride 10 meq in 100 mls @ 100 mls/hr 07/26/23 11:45 07/26/23 14:19 K Yordan / Wtr IV 07/26/23 14:44 100 mls/hr Q1H HERNESTO Administration Melatonin 3 mg 07/13/23 21:00 07/25/23 20:28 Melatonin 3 Mg Tab PO 08/12/23 20:59 3 mg HS HERNESTO Administration Ondansetron HCl 4 mg 06/29/23 10:08 07/19/23 22:56 Ondansetron Inj 2 Mg/Ml 2 Ml Vial IV 07/29/23 10:07 4 mg Q6H PRN Administration Nausea And Vomiting Oxycodone/Acetaminophen 1 tab 07/21/23 09:31 07/22/23 06:35 Oxycodone/Acetaminophen 5mg/325mg Tab PO 08/04/23 09:30 1 tab Q4H PRN Administration Pain Sucralfate 1 gm 07/21/23 13:00 07/26/23 12:15 Sucralfate 1 Gm/10 Ml Udc PO 08/20/23 12:59 1 gm QID HERNESTO Administration (5) Ulcerative colitis Digestive disease complication type: with abscess Ulcerative colitis location: ulcerative pancolitis Qualified Code(s): K51.014 - Ulcerative (chronic) pancolitis with abscess
[2023-07-26] MEDS: FLUCONAZOLE 100 MG TAB PO SCH (15:31)
[2023-07-26] MEDS: ONDANSETRON INJ 2 MG/ML 2 ML VIAL IV PRN (15:34)
--- NOTE | 2023-07-26 19:18 | Hospitalist Progress Note ---
Date of Service July 26, 2023 Assessment & Plan (1) Perforated abdominal viscus: Plan: pt with recent diagnosis of Ulcerative colitis, and had sessile polyp biopsied. Presented with free air, to OR 06/28/23 with colon resection, subtotal colectomy and ileostomy. Three areas of perforation were identified, abscess and feculent material seen. Pseudomonas and Enterococcus faecium isolated. right upper quadrant drain has been removed. IR drain remains and continues to drain in luq manipulate on 07/23/[address] scan 07/19 shows persistent fluid collections consistent with abscess 07/23/2023 shows a leukocytosis Infectious disease initial recommendations -Increased daptomycin to 600 mg IV daily -zosyn, fluconazole 400 mg PO daily -Final duration of abx will be based on resolution of abscesses on follow-up imaging and clinical improvement. 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 stable (4) Hard of hearing: Plan: Supportive care (5) Encephalopathy: Plan: Acute encephalopathy, probably metabolic. Now resolved. Continue supportive care. Head CT scan negative. Plan Need to discuss if able to return to nursing home with complexity of care, with 2 iv antibiotics, wound vac, ostomy and IR drain in place Admission and Anticipated Discharge Date Admission Date: June 28, 2023 Subjective Patient seen and examined. No acute events overnight. Afebrile. Still has ostomy function and tolerating diet. with kimmie had to set up IVF eoncouraged to increase po intake wound vacc changed 07/26 will need follow up at wound center Physical Exam Physical Exam: cardiac exam is regular lungs are clear abd with functioning ostomy in Right side, has wound vacc and drain externally look good Results & Data Results & Data Vital Signs (Past 12 Hours) Vital Signs Temp Pulse Resp BP Pulse Ox O2 Del Method 07/26/23 15:34 97.3 F L 93 H 20 144/90 H 100 Room Air 07/26/23 07:25 98.1 F 91 H 14 138/88 99 Room Air Laboratory Results reviewed cr today replete potassium from last night PG Care Time/CCT Total # of Minutes Spent Total Time Spent with Patient: Total time spent is greater than 50% in coordination of care (as documented) at patient's floor/unit and/or counseling patient: Coding Level of Care Code 98535 SUB INP/OBS CARE 2/35MIN Diagnoses Perforated abdominal viscus R19.8 Acute kidney injury N17.9 Acute blood loss anemia D62 Bilateral hearing loss, unspecified hearing loss type H91.93 Hearing loss type: unspecified Laterality: bilateral Encephalopathy G93.40 (4) Hard of hearing Hearing loss type: unspecified Laterality: bilateral Qualified Code(s): H91. 93 - Unspecified hearing loss, bilateral
[2023-07-26] MEDS: MELATONIN 3 MG TAB PO SCH (20:29)
[2023-07-27] MEDS: PIPERACILLIN/TAZOBACTAM 4.5 GM in DEXTROSE 5% MINI-B 100 ML IV SCH ×3 (01:09→17:07)
[2023-07-27] MEDS: DAPTOmycin 600 MG in SYRINGE 0 ML IV SCH (06:06)
[2023-07-27 07:09] LABS: Creatinine Clr Calc Pharmacy 25.1 ml/min; Est GFR (African American) 33.2 ml/min; Est GFR (Non-African American) 28.6 ml/min
[2023-07-27] MEDS: FLUCONAZOLE 100 MG TAB PO SCH (07:44)
[2023-07-27] MEDS: HEPARIN SOD 5,000 UNIT/0.5 ML VIAL SQ SCH ×2 (07:44→21:02)
[2023-07-27] MEDS: SUCRALFATE 1 GM/10 ML UDC PO SCH ×4 (07:44→21:03)
[2023-07-27] MEDS: FAMOTIDINE 20 MG TAB PO SCH ×2 (07:44→21:02)
--- NOTE | 2023-07-27 09:01 | Ultrasound Report ---
US renal/blad retro comp CLINICAL HISTORY: acute kidney failure eval obstruction TECHNIQUE: Multiple sonographic real-time images of the kidneys and bladder were obtained. COMPARISON: Comparison is made to CT abdomen pelvis 07/19/2023 FINDINGS: The right kidney measures 10.8 cm in length, and the left kidney measures 11.6 cm in length. The right renal cortex is diffusely echogenic in appearance with diffuse cortical thinning. No hydron ephrosis is identified. No renal lesion is identified. The left renal cortex is diffusely echogenic in appearance, with diffuse cortical thinning. No hydron ephrosis is identified. No renal lesion is identified. Bladder wall is thickened. There is debris noted in the bladder. No large intraluminal mass is seen. IMPRESSION: 1. Echogenic appearance of the bilateral kidneys which may be present in medical renal disease. 2. Debris in the bladder and thickened bladder wall, correlation with cystitis is recommended. ACT 112: Negative or not required by law. Electronically signed by: Sudhakar Ambrose M.D. 07/27/2023 8:59 AM
[2023-07-27 11:29] LABS: Appearance Urine Cloudy (Clear); Bilirubin Urine Negative (Negative); Blood Urine 1+ (Negative); Color Urine Yellow; Epithelial Cell Urine Auto 20-30 /lpf (0-5); Glucose Urine UA Negative (Negative); Ketones Urine Negative (Negative); Leukocyte Esterase Urine Negative (Negative); Nitrite Urine Negative (Negative); Protein Urine 2+ (Negative); RBC Urine Automated 0-4 /hpf (0-4); Specific Gravity Urine 1.014 (1.000-1.030); Urobilinogen Urine Negative (Negative)
[2023-07-27 12:07] LABS: Amorphous Sediment Urine Present (None Prsent)
[2023-07-27 12:08] LABS: Bacteria Urine Automated 1+ (Negative); Cast Urine Automated 0 /lpf (0-5)
[2023-07-27] MEDS: oxyCODONE/ACETAMINOPHEN 5mg/325mg TAB PO PRN ×2 (13:52→21:09)
--- NOTE | 2023-07-27 19:32 | Hospitalist Progress Note ---
Date of Service July 27, 2023 Assessment & Plan (1) Perforated abdominal viscus: Plan: pt with recent diagnosis of Ulcerative colitis, and had sessile polyp biopsied. Presented with free air, to OR 06/28/23 with colon resection, subtotal colectomy and ileostomy. Three areas of perforation were identified, abscess and feculent material seen. Pseudomonas and Enterococcus faecium isolated. right upper quadrant drain has been removed. IR drain remains and continues to drain in luq manipulate on 07/23/[address] scan 07/19 shows persistent fluid collections consistent with abscess 07/23/2023 shows a leukocytosis Infectious disease initial recommendations -Increased daptomycin to 600 mg IV daily -zosyn, fluconazole 400 mg PO daily -Final duration of abx will be based on resolution of abscesses on follow-up imaging and clinical improvement. 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 stable (4) Hard of hearing: Plan: Supportive care (5) Encephalopathy: Plan: Acute encephalopathy, probably metabolic. Now resolved. Continue supportive care. Head CT scan negative. Plan able to return to group home, they are comfortable with complexity of care, with 2 iv antibiotics, wound vac, ostomy and IR drain in place, need to define renal issue first Admission and Anticipated Discharge Date Admission Date: June 28, 2023 Subjective pt with inreased but stable Cr in 2.4 range, has proteinuria and some hematuria with no casts seen on UA, urine cx pending Physical Exam Physical Exam: cardiac exam is regular lungs are clear abd with functioning ostomy in Right side, has wound vacc and drain externally look good Results & Data Results & Data Vital Signs (Past 12 Hours) Vital Signs Temp Pulse Resp BP Pulse Ox O2 Del Method 07/27/23 15:10 97.5 F L 101 H 18 107/90 99 Room Air 07/27/23 08:00 Room Air 07/27/23 07:30 98.1 F 88 18 136/90 100 Room Air Laboratory Results reviewed UA reviewed chemistry PG Care Time/CCT Total # of Minutes Spent Total Time Spent with Patient: Total time spent is greater than 50% in coordination of care (as documented) at patient's floor/unit and/or counseling patient: Coding Level of Care Code 20211 SUB INP/OBS CARE 3/50MIN Diagnoses Perforated abdominal viscus R19.8 Acute kidney injury N17.9 Acute blood loss anemia D62 Bilateral hearing loss, unspecified hearing loss type H91.93 Hearing loss type: unspecified Laterality: bilateral Encephalopathy G93.40 (4) Hard of hearing Hearing loss type: unspecified Laterality: bilateral Qualified Code(s): H91.93 - Unspecified hearing loss, bilateral
[2023-07-27] MEDS: MELATONIN 3 MG TAB PO SCH (21:02)
[2023-07-28] MEDS: PIPERACILLIN/TAZOBACTAM 4.5 GM in DEXTROSE 5% MINI-B 100 ML IV SCH ×2 (02:28→08:59)
[2023-07-28 07:07] LABS: Hematocrit (blood only) 31.3 % (42.0-52.0); Hemoglobin 9.6 g/dl (14.0-18.0); Mean Corpuscular Hemoglobin 28.5 pg (25.0-34.0); Mean Corpuscular Hgb Conc 30.7 g/dL (32.0-36.0); Mean Corpuscular Volume 92.9 fL (80.0-100.0); Mean Platelet Volume 9.2 fL (9.4-12.4); Platelet Count 403 K/uL (130-400); RDW Coefficient of Variation 17.2 % (11.5-14.5); RDW Standard Deviation 58.2 fL (36.4-46.3); Red Blood Count 3.37 M/uL (4.70-6.10); White Blood Count 11.63 K/ul (4.8-10.8)
[2023-07-28 07:59] LABS: Basophils # (auto) 0.07 K/uL (0.00-0.20); Basophils % (auto) 0.6 %; Eosinophils # (auto) 0.45 K/uL (0.00-0.50); Eosinophils % (auto) 3.9 %; Immature Granulocytes # (auto) 0.05 K/uL (0.01-0.20); Immature Granulocytes % (auto) 0.4 %; Lymphocytes # (auto) 1.39 K/uL (1.20-3.40); Monocytes # (auto) 0.67 K/uL (0.11-0.59); Monocytes % (auto) 5.8 %; Neutrophils % (auto) 77.3 %
[2023-07-28] MEDS: FAMOTIDINE 20 MG TAB PO SCH ×2 (08:56→21:04)
[2023-07-28] MEDS: SUCRALFATE 1 GM/10 ML UDC PO SCH ×4 (08:57→21:05)
[2023-07-28] MEDS: HEPARIN SOD 5,000 UNIT/0.5 ML VIAL SQ SCH ×2 (08:57→21:04)
[2023-07-28] MEDS: FLUCONAZOLE 100 MG TAB PO SCH (08:57)
[2023-07-28 09:03] LABS: BUN Creatinine Ratio 7.5 (10-20); Calcium 8.2 mg/dl (8.6-10.3); Est GFR (African American) 26.8 ml/min; Est GFR (Non-African American) 23.2 ml/min; Phosphorus 2.5 mg/dl (2.5-4.9); Potassium 3.7 mmol/L (3.5-5.1)
[2023-07-28] MEDS: oxyCODONE/ACETAMINOPHEN 5mg/325mg TAB PO PRN ×3 (09:05→17:26)
--- NOTE | 2023-07-28 09:22 | Nephrology Consultation ---
Date of Consultation July 28, 2023 Assessment & Plan (1) Acute kidney injury: (2) Megacolon, toxic: (3) Ileostomy in place: (4) Ulcerative colitis: (5) Acute blood loss anemia: Plan 53 y o m admitted with Toxic megacolon with new diagnosis of ulcerative colitis, s/p exploratory laparotomy on 06/28/23. Found to have multiple intra-abdominal abscesses and had multiple CT with IV contrast over last 1 month. Also has been multiple courses of antibiotic including cefepime, caspofungin, currently on Zosyn, daptomycin and fluconazole for MRSA and Pseudomonas intra-abdominal infection and abscess. Developed DERIK over last few days with otherwise normal kidney function over last few weeks, creatinine was 0.9 until 07/21/2023. Creatinine was noted to be 2.3 on 07/25/2023 and has been progressively worsening and up to 2.9 this morning. Urinalysis with proteinuria but no hematuria or pyuria. Renal ultrasound was otherwise unremarkable. Blood pressure has been well controlled, no exposure to NSAIDs, CHRISTOFER inhibitor or ARB. Multiple exposure to IV contrast with CT scan including last CT with IV contrast on 07/19/2023 can certainly increase risk for contrast-induced nephropathy. All of the antibiotic can potentially cause nephrotoxicity although unlikely AIN, specially Zosyn certainly can cause nephrotoxicity. Other possibilities such as infection related GN remains although with no hematuria, seems unlikely. --Consider switching to cefepime from Zosyn. Okay to continue on daptomycin and fluconazole for now --avoid all NSAIDs --Keep well-hydrated --Dose medications for eGFR less than 30 --will check complements --check 24 h urine for better assessment of proteinuria. Thank you for the consultation, it was a pleasure to see Mr. Deleon. History of Present Illness Attending Physician: Tj Keller MD History of Present Illness Mr. Adama Deleon is a 53-year-old male with complex PMH admitted to hospital on 06/28/23 with toxic megacolon and had Exploratory Laparotomy, subtotal colectomy, Ileostomy. Nephrology consult requested for management of DERIK. Electronic medical records were reviewed in detail during patient's visit. Adama was initially admitted to hospital in late May with abdominal pain, bloody diarrhea, nausea and vomiting. Had a colonoscopy showing severe acute pancolitis and proctocolitis and multiple deep ulcerations throughout the colon. Eventually was discharged from hospital on 06/23/23. However he was readmitted to hospital on 06/28/2023 with worsening abdominal pain associated with nausea, vomiting, fever and chills. CT A/P on 06/28/2023 with IV contrast demonstrated free air, multiple loculated fluid collections throughout the mesentery, severe colitis with a toxic megacolon and had exploratory laparotomy showing perforated viscous with pneumoperitoneum, multiple abdominal abscesses and secondary polymicrobial feculent and had subtotal colectomy, Ileostomy. Culture grew MSSA, PsA, VRE, Mariely. Blood and urine Cx was negative. He received Zosyn and Caspofungin. He continued to have persistent leukocytosis and progressive encephalopathy. Repeat CT A/P with contrast on 07/05 showed persistent collections in the abdomen. Had drain placement by IR on 07/06. Abx were switched to cefepime, flagyl and Daptomycin. It was felt that Zosyn may be contributing to confusion. Head CT was unremarkable. MS improved on Cefepime. CT A/P with IV contrast on 07/19 showed numerous large residual intra-abdominal fluid collections, modestly decreased in size. Antibiotic was switched back to Zosyn from cefepime and metronidazole for easy dosing. Plan to continue antibiotic based on repeat imaging of the abdomen and status of improvement of intra-abdominal abscess. Currently he is continuing on daptomycin, Zosyn and fluconazole. No prior history of CKD. Early in the course of hospitalization after exploratory laparotomy he developed mild DERIK, creatinine was up to 1.7 which improved rapidly and over last 2 weeks renal function was staying relatively stable. Creatinine was staying around 0.8-0.9. Last CT with IV contrast was on 07/19/2023. Creatinine was 0.9 on 07/21/2023 but lab on 07/25/2023 showed creatinine 2.3 and has been progressively worsening and creatinine was up to 2.9 this morning. Urinalysis with proteinuria but no significant hematuria, pyuria. Renal ultrasound was negative for postrenal obstruction. No evidence of significant hypotension. No NSAID, CHRISTOFER, ARB exposure. Has been having decent urine output. Electrolyte has been acceptable. Overall he seems comfortable, denies any specific symptoms. BP fair. volume status acceptable. Allergies Allergy/AdvReac Type Severity Reaction Status Date / Time No Known Allergies Allergy Verified 06/14/23 10:21 Home Medications Medication Instructions Recorded Confirmed Type mesalamine 4 gram/60 mL enema 4 g (60 mL) AK HS 1 month #1,800 mL 06/22/23 06/28/23 Rx mesalamine 800 mg tablet,delayed 1,600 mg (2 x 800 mg) PO TID 1 06/22/23 06/28/23 Rx release month #180 tabs prednisone 20 mg tablet 40 mg (2 x 20 mg) PO DAILY 1 month 06/22/23 06/28/23 Rx #60 tabs Patient History Medical History Abnormal colonoscopy Encounter for pre-operative examination Hard of hearing Ileostomy in place Ulcerative colitis Surgical History S/P colon resection Social History Smoking Status: Unknown if ever smoked Tobacco Type: Cigarettes Hx Alcohol Use: No Hx Substance Use: No Preferred Language: Peruvian Communication Ability: Effective 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 Physical Exam Constitutional: WD/WN, vitals as above + ill appearing and + cachectic; no acute distress Eyes: + anicteric sclerae Neck: normal visual inspection Respiratory: no respiratory distress Auscultation: lungs clear to auscultation bilaterally Cardiovascular: Rate/Rhythm: regular rate and regular rhythm Heart Sounds: normal S1 and normal S2 Extremities: no edema Gastrointestinal (Abdomen): Percussion/Palpation: abdomen soft ileostomy , wound vac and drainage in place. no abdominal Distension Musculoskeletal: Extremities: extremities normal to inspection Skin: no rashes, warm and dry Neurologic: no focal motor deficits Psychiatric: Orientation: alert and oriented x 3 Affect: euthymic affect Results & Data Vital Signs (Past 12 Hours) Vital Signs Temp Pulse Resp BP Pulse Ox O2 Del Method 07/28/23 07:22 36.3 C L 83 16 135/89 100 Room Air PG Care Time/CCT Total # of Minutes Spent Total Time Spent with Patient: Total time spent is greater than 50% in coordination of care (as documented) at patient's floor/unit and/or counseling patient: Coding Level of Care Code 94021 INT INP/OBS CARE 3/75MIN Diagnoses Acute kidney injury N17.9 Megacolon, toxic K59.[address] Z93.2 Ulcerative pancolitis with abscess K51.014 Ulcerative colitis location: ulcerative pancolitis Digestive disease complication type: with abscess Acute blood loss anemia D62 (4) Ulcerative colitis Ulcerative colitis location: ulcerative pancolitis Digestive disease complication type: with abscess Qualified Code(s): K51.014 - Ulcerative (chronic) pancolitis with abscess
--- NOTE | 2023-07-28 16:16 | Infectious Disease Progress Nt ---
Date of Service July 28, 2023 Assessment & Plan (1) Encephalopathy: (2) Sepsis: (3) S/P colon resection: (4) Pneumoperitoneum: (5) Ulcerative colitis: (6) Perforated abdominal viscus: Plan Micro 07/08 UCx NG 07/06 Abd fluid cx: PsA #1, PsA #2 (dailey-sensitive), VRE (S dapto, OSVALDO 4) 06/28 Abd fluid cx: PsA, C albicans/dub, MSSA 06/28 BCx x2: NG Abx/Antifungals: Dapto 07/12 - ongoing Zosyn 06/28-07/09, 07/22 - ongoing Flucon 07/14- ongoing Cefepime 06/28, 07/11-07/22 flagyl 06/28, 07/12- 07/22 Caspofungin 06/29-07/10 Problems: # Polymicrobial Feculent Peritonitis s/p ruptured viscous: MSSA, PsA, VRE, Mariely alb/dub # Multiple abdominal abscess s/p IR drain placement # Ulcerative Pancolitis # Persistent Leukocytosis 53 yo incarcerated M recently diagnosed with ulcerative pancolitis, started on prednisone and mesalamine who presented on 06/28 with abdominal pain and vomiting, found to have perforated viscous with pneumoperitoneum and secondary polymicrobial feculent peritonitis s/p ex-lap, subtotal colectomy, and ileostomy (06/28). He was found to have multiple areas of perforation w/in the cecum/transverse/sigmoid colon with feculent peritonitis with multiple abscesses throughout the abdominal cavity. DAVID drains placed. Abd fluid cx + for Mariely albicans/dubliniensis, MSSA and PsA. He received Zosyn and Caspofungin. His hospital course c/b persistent leukocytosis and progressive encephalopathy. Repeat CTAB 07/05 showed persistent collections in the abdomen. He underwent LUQ fluid collection drain placement by IR on 07/06, which grew 2 strains of PSA and VRE. Abx were switched to cefepime, flagyl and Daptomycin. It was felt that Zosyn may be contributing to confusion. Head CT was unremarkable. MS improved on Cefepime. CT A/P with IV contrast on 07/19 showed numerous large residual intra-abdominal fluid collections, modestly decreased in size. Leukocytosis overall improved, but increased to 21.1 on 07/23. LUQ drain noted to be dislodged/kinked, so LUQ replaced by IR on 07/23. WBc down to 14 as of 07/25, improved with drain replacement Recommendations: -Continue daptomycin 600 mg IV daily (~12 mg/kg IV daily CHANGED TO q 48 given increased cr ) given VRE dapto OSVALDO 4. Adjust dose based on renal fxn -CK 12 on 07/19/23. Check weekly CK to monitor for toxicity. Next check ordered for 07/27 -monitor creatinine -discontinued pip-tazo in case contributing to worsening renal fxn. Will restart cefepime renally dosed at 1 g IV q12 ( crcl ~21) and PO metronidazole 500 mg tid -Continue fluconazole 400 mg PO daily -Final duration of abx will be based on resolution of abscesses on follow-up imaging and clinical improvement. If no improvement, he may need additional source control/drainage. -On discharge, may favor continuing IV antibiotics rather than switching to PO, for a couple reasons: 1. It is unknown how long he will be on antibiotics, so would hesitate to discharge him on a prolonged course of linezolid (for VRE coverage) as he may experience adverse effects. 2. He still has sizeable intra- abdominal fluid collections at this time and would want to ensure good PO antibiotic absorption (although most absorption happens in duodenum and jejunum, so pt would likely be fine with PO) -Can get follow-up CT in 1-2 weeks to follow-up abdominal fluid collections, assuming he remains clinically stable. d/w team ID will continue to follow. Claudy Vargas MD, MPH Infectious Disease ID Connect [facility], ID Division Call [phone] with questions Admission and Anticipated Discharge Date Admission Date: June 28, 2023 Subjective This patient recommendation is based on a telemedicine consult request which was completed asynchronously through chart review and information provided by the primary physician. The patient was not seen or examined today. The evaluation is consultative in nature and all patient care and treatment decisions can either be accepted or rejected by the patient's primary hospital-based treating physician using their own independent medical judgment for their patient. Time Spent Reviewing Chart: 11 - 20 minutes cr up to 2.93 Results & Data Vital Signs (Past 12 Hours) Vital Signs Temp Pulse Resp BP Pulse Ox O2 Del Method 07/28/23 15:45 36.4 C L 81 18 154/91 H 99 Room Air 07/28/23 07:22 36.3 C L 83 16 135/89 100 Room Air Laboratory Results Short CBC 07/28/23 Range/Units 06:38 WBC 11.63 H (4.8-10.8) K/ul Hgb 9.6 L (14.0-18.0) g/dl Hct 31.3 L (42.0-52.0) % Plt Count 403 H (130-400) K/uL BMP 07/28/23 06:38 Sodium 137 Potassium 3.7 Chloride 108 H Carbon Dioxide 21 BUN 22 Creatinine 2.93 H D Glucose 136 H Calcium 8.2 L Diagnostic Findings Microbiology 07/27/23 11:05 Urine,Clean Catch Urine Culture - Preliminary No growth - Less than 1,000 colonies/mL, Final report to follow. 07/06/23 12:45 Abdomen, Left Upper Quadrant Gram Stain - Final 07/06/23 12:45 Abdomen, Left Upper Quadrant Aerobic and Anaerobic Culture - Final Pseudomonas aeruginosa Enterococcus faecium VRE Pseudomonas aeruginosa#2 07/08/23 21:25 Urine,Clean Catch Urine Culture - Final No growth - less than 1,000 colonies/mL. 06/28/23 18:30 Blood Aerobic Blood Culture - Final No growth in Aerobic bottle after 5 days. 06/28/23 18:30 Blood Anaerobic Blood Culture - Final No growth in Anaerobic bottle after 5 days. 06/28/23 12:58 Blood Aerobic Blood Culture - Final No growth in Aerobic bottle after 5 days. 06/28/23 12:58 Blood Anaerobic Blood Culture - Final No growth in Anaerobic bottle after 5 days. 06/28/23 15:33 Abdomen Gram Stain - Final 06/28/23 15:33 Abdomen Aerobic and Anaerobic Culture - Final Pseudomonas aeruginosa Mariely albicans/dubliniensis Staphylococcus aureus Renal Ultrasound 07/27/23 07:36 US renal/blad retro comp CLINICAL HISTORY: acute kidney failure eval obstruction TECHNIQUE: Multiple sonographic real-time images of the kidneys and bladder were obtained. COMPARISON: Comparison is made to CT abdomen pelvis 07/19/2023 FINDINGS: The right kidney measures 10.8 cm in length, and the left kidney measures 11.6 cm in length. The right renal cortex is diffusely echogenic in appearance with diffuse cortical thinning. No hydronephrosis is identified. No renal lesion is identified. The left renal cortex is diffusely echogenic in appearance, with diffuse cortical thinning. No hydronephrosis is identified. No renal lesion is identified. Bladder wall is thickened. There is debris noted in the bladder. No large intraluminal mass is seen. IMPRESSION: 1. Echogenic appearance of the bilateral kidneys which may be present in medical renal disease. 2. Debris in the bladder and thickened bladder wall, correlation with cystitis is recommended. ACT 112: Negative or not required by law. Electronically signed by: Sudhakar Ambrose M.D. 07/27/2023 8:59 AM Medications Administered Home Medications Medication Instructions Recorded Confirmed Last Taken mesalamine 4 gram/60 mL enema 4 g (60 mL) MT HS 1 month #1,800 mL 06/22/23 06/28/23 Unknown mesalamine 800 mg tablet,delayed 1,600 mg (2 x 800 mg) PO TID 1 06/22/23 06/28/23 Unknown release month #180 tabs prednisone 20 mg tablet 40 mg (2 x 20 mg) PO DAILY 1 month 06/22/23 06/28/23 Unknown #60 tabs Active Medications Generic Name Dose Route Start Last Admin Trade Name Freq PRN Reason Stop Dose Admin Acetaminophen 650 mg 07/21/23 09:13 07/21/23 20:40 Acetaminophen 325 Mg Tab PO 08/20/23 09:12 650 mg Q4H PRN Administration Pain Famotidine 20 mg 07/16/23 21:00 07/28/23 08:56 Famotidine 20 Mg Tab PO 08/15/23 20:59 20 mg BID HERNESTO Administration Fluconazole 400 mg 07/26/23 14:30 07/28/23 08:57 Fluconazole 100 Mg Tab PO 08/05/23 14:29 400 mg DAILY HERNESTO Administration Heparin Sodium (Beef Lung) 5 ml 07/05/23 14:28 07/28/23 12:58 Heparin 10 Unit/Ml 5 Ml Flush FLUSH 08/04/23 14:27 5 ml PRN PRN Administration Flush Heparin Sodium (Porcine) 5,000 units 07/08/23 09:00 07/28/23 08:57 Heparin Sod 5,000 Unit/0.5 Ml Vial SQ 08/07/23 08:59 5,000 units Q12 HERNESTO Administration Piperacillin Sod/Tazobactam 100 mls @ 25 mls/hr 07/22/23 16:00 07/28/23 12:59 Sod 4.5 gm/ Dextrose IV 08/01/23 15:59 Infused Q8H HERNESTO Infusion Protocol Daptomycin 600 mg/ Syringe 12 mls @ 6 mls/min 07/27/23 07:00 07/27/23 06:06 IV 07/31/23 06:59 6 mls/min Q48H HERNESTO Administration Protocol Melatonin 3 mg 07/13/23 21:00 07/27/23 21:02 Melatonin 3 Mg Tab PO 08/12/23 20:59 3 mg HS HERNESTO Administration Ondansetron HCl 4 mg 06/29/23 10:08 07/26/23 15:34 Ondansetron Inj 2 Mg/Ml 2 Ml Vial IV 07/29/23 10:07 4 mg Q6H PRN Administration Nausea And Vomiting Oxycodone/Acetaminophen 1 tab 07/21/23 09:31 07/28/23 12:57 Oxycodone/Acetaminophen 5mg/325mg Tab PO 08/04/23 09:30 1 tab Q4H PRN Administration Pain Sucralfate 1 gm 07/21/23 13:00 07/28/23 12:56 Sucralfate 1 Gm/10 Ml Udc PO 08/20/23 12:59 1 gm QID HERNESTO Administration (5) Ulcerative colitis Digestive disease complication type: with abscess Ulcerative colitis location: ulcerative pancolitis Qualified Code(s): K51.014 - Ulcerative (chronic) pancolitis with abscess
--- NOTE | 2023-07-28 16:29 | Surgery Progress Note ---
Date of Service July 28, 2023 Assessment & Plan (1) S/P colon resection: Plan: POD # 31 ex lap , subtotal colectomy for perforated dailey ulcerative colitis and ileostomy formation Leukocytosis of [address] scan on 07/19 with decreasing size of intra-abdominal abscesses LUQ IR drain catheter replaced 07/23 Plan: con't vac per wound care continue IV antibiotics, will need IV abx per ID on discharge Continue medical management probable [facility] - [place] from surgical standpoint Admission and Anticipated Discharge Date Admission Date: June 28, 2023 Subjective feeling well today; slow return of appetite, no nausea/vomiting. WBC 11 today Physical Exam Physical Exam: AFVSS NAD, A&O x3 Abdomen: Soft, mild TTP PERC drain with purulent drainage Ostomy pink and viable with gas and stool in bag wound vac in place Results & Data Vital Signs (Past 12 Hours) Vital Signs Temp Pulse Resp BP Pulse Ox O2 Del Method 07/28/23 15:45 36.4 C L 81 18 154/91 H 99 Room Air 07/28/23 07:22 36.3 C L 83 16 135/89 100 Room Air Laboratory Results 07/28/23 07/28/23 Range/Units 09:50 06:38 WBC 11.63 H (4.8-10.8) K/ul RBC 3.37 L (4.70-6.10) M/uL Hgb 9.6 L (14.0-18.0) g/dl Hct 31.3 L (42.0-52.0) % MCV 92.9 (80.0-100.0) fL MCH 28.5 (25.0-34.0) pg MCHC 30.7 L (32.0-36.0) g/dL RDW Std Deviation 58.2 H (36.4-46.3) fL RDW Coeff of Ashley 17.2 H (11.5-14.5) % Plt Count 403 H (130-400) K/uL MPV 9.2 L (9.4-12.4) fL Immature Gran % (Auto) 0.4 % Neut % (Auto) 77.3 % Lymph % (Auto) 12.0 % Edmonson % (Auto) 5.8 % Eos % (Auto) 3.9 % Baso % (Auto) 0.6 % Neut # (Auto) 9.00 H (1.40-6.50) K/uL Lymph # (Auto) 1.39 (1.20-3.40) K/uL Edmonson # (Auto) 0.67 H (0.11-0.59) K/uL Eos # (Auto) 0.45 (0.00-0.50) K/uL Baso # (Auto) 0.07 (0.00-0.20) K/uL Immature Gran # (Auto) 0.05 (0.01-0.20) K/uL Sodium 137 (136-145) mmol/L Potassium 3.7 (3.5-5.1) mmol/L Chloride 108 H (98-107) mmol/L Carbon Dioxide 21 (21-32) mmol/L Anion Gap 8 (3-11) BUN 22 (6-23) mg/dl Creatinine 2.93 H D (0.6-1.4) mg/dl Est Cr Clr Drug Dosing 21.0 ml/min Est GFR ( Amer) 26.8 ml/min Est GFR (Non-Af Amer) 23.2 ml/min BUN/Creatinine Ratio 7.5 L (10-20) Glucose 136 H (70-99(Fasting)) mg/dl Calcium 8.2 L (8.6-10.3) mg/dl Phosphorus 2.5 (2.5-4.9) mg/dl Complement C3 Pending Complement C4 Pending
--- NOTE | 2023-07-28 17:11 | Hospitalist Progress Note ---
Date of Service July 28, 2023 Assessment & Plan (1) Perforated abdominal viscus: Plan: pt with recent diagnosis of Ulcerative colitis, and had sessile polyp biopsied. Presented with free air, to OR 06/28/23 with colon resection, subtotal colectomy and ileostomy. Three areas of perforation were identified, abscess and feculent material seen. Pseudomonas and Enterococcus faecium isolated. right upper quadrant drain has been removed. IR drain remains and continues to drain in luq manipulate on 07/23/[address] scan 07/19 shows persistent fluid collections consistent with abscess 07/23/2023 shows a leukocytosis Infectious disease initial recommendations -Increased daptomycin to 600 mg IV daily -, fluconazole 400 mg PO daily due to concerns for possible antibiotic induced kidney injury patient was changed from Zosyn back to cefepime. The patient is escalation or worsening of renal function occurred somewhere after [facility] was engaged on 08/21/2023 -Final duration of abx will be based on resolution of abscesses on follow-up imaging and clinical improvement. 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 Patient will then have supplies to continue antibiotic care at [facility] but with eventual transition to [facility] detention system. This may need to occur with the concern for antibiotic use renal disease as we will not have defined diagnosis of this until the complements are returned and we do not have the ability to perform a renal biopsy in our system and hopefully that can be procured at [facility] or somewhere close to that. (2) Acute kidney injury: Plan: noted 07/25 with repeat labs confirming , maybe atn due to poor po intake, ain from meds started ivf encouraged po intake us suggest debris in bladder, thickened bladder wall ua with protein and blood no cases, nephrology consultation 24-hour urine initiated at 10 AM on 07/28/2023. urine culture from 07/27 negative for infection Complements sent by nephrology currently pending (3) Acute blood loss anemia: Plan: Postoperatively. stable (4) Hard of hearing: Plan: Supportive care (5) Encephalopathy: Plan: Acute encephalopathy, probably metabolic. Now resolved. Continue supportive care. Head CT scan negative. Admission and Anticipated Discharge Date Admission Date: June 28, 2023 Subjective Patient is able eat some becker a small amount of eggs for breakfast. Concern for progressive renal dysfunction with change of Zosyn to cefepime for concern for antibiotic induced renal failure. Does not have classic signs of interstitial nephritis but does have proteinuria and some blood in his urine. 24-hour urine is been initiated by nephrology. Physical Exam Physical Exam: cardiac exam is regular lungs are clear abd with functioning ostomy in Right side, has wound vacc and drain externally look good Patient is lost an extreme amount of weight his BMI is 16 he has moderate to severe protein calorie malnutrition Results & Data Results & Data Vital Signs (Past 12 Hours) Vital Signs Temp Pulse Resp BP Pulse Ox O2 Del Method 07/28/23 15:45 97.5 F L 81 18 154/91 H 99 Room Air 07/28/23 07:22 97.3 F L 83 16 135/89 100 Room Air Laboratory Results Reviewed CBC reviewed chemistry Discussed case with infectious disease Discussed case with nephrology PG Care Time/CCT Total # of Minutes Spent Total Time Spent with Patient: Total time spent is greater than 50% in coordination of care (as documented) at patient's floor/unit and/or counseling patient: Coding Level of Care Code 03768 SUB INP/OBS CARE 3/50MIN Diagnoses Perforated abdominal viscus R19.8 Acute kidney injury N17.9 Acute blood loss anemia D62 Bilateral hearing loss, unspecified hearing loss type H91.93 Hearing loss type: unspecified Laterality: bilateral Encephalopathy G93.40 (4) Hard of hearing Hearing loss type: unspecified Laterality: bilateral Qualified Code(s): H91.93 - Unspecified hearing loss, bilateral
[2023-07-28] MEDS: CEFEPIME 1,000 MG in SYRINGE 0 ML IV SCH (17:25)
[2023-07-28] MEDS: metroNIDAZOLE 500 MG TAB PO SCH (21:04)
[2023-07-28] MEDS: MELATONIN 3 MG TAB PO SCH (21:04)
[2023-07-29] MEDS: CEFEPIME 1,000 MG in SYRINGE 0 ML IV SCH ×2 (06:04→17:38)
[2023-07-29] MEDS: DAPTOmycin 600 MG in SYRINGE 0 ML IV SCH (06:04)
[2023-07-29] MEDS: metroNIDAZOLE 500 MG TAB PO SCH ×3 (06:04→20:56)
[2023-07-29] MEDS: HEPARIN SOD 5,000 UNIT/0.5 ML VIAL SQ SCH ×2 (07:58→20:56)
[2023-07-29] MEDS: SUCRALFATE 1 GM/10 ML UDC PO SCH ×4 (07:58→20:55)
[2023-07-29] MEDS: FAMOTIDINE 20 MG TAB PO SCH ×2 (07:58→20:56)
[2023-07-29] MEDS: FLUCONAZOLE 100 MG TAB PO SCH (07:58)
[2023-07-29 08:28] LABS: Albumin Level 2.5 gm/dl (3.4-5.0); Calcium 8.3 mg/dl (8.6-10.3); Est GFR (African American) 22.3 ml/min; Est GFR (Non-African American) 19.2 ml/min; Phosphorus 2.8 mg/dl (2.5-4.9); Potassium 4.1 mmol/L (3.5-5.1)
--- NOTE | 2023-07-29 11:01 | Nephrology Progress Note ---
Date of Service July 29, 2023 Assessment & Plan (1) Acute kidney injury: (2) Megacolon, toxic: (3) Ileostomy in place: (4) Ulcerative colitis: (5) Acute blood loss anemia: Plan 53 y o m admitted with Toxic megacolon with new diagnosis of ulcerative colitis, s/p exploratory laparotomy on 06/28/23. Found to have multiple intra-abdominal abscesses and had multiple CT with IV contrast over last 1 month. Also has been multiple courses of antibiotic including cefepime, caspofungin, currently on Zosyn, daptomycin and fluconazole for MRSA and Pseudomonas intra-abdominal infection and abscess. Developed DERIK over last few days with otherwise normal kidney function over last few weeks, creatinine was 0.9 until 07/21/2023. Creatinine was noted to be 2.3 on 07/25/2023 and has been progressively worsening and up to 2.9 this morning. Urinalysis with proteinuria but no h ematuria or pyuria. Renal ultrasound was otherwise unremarkable. Blood pressure has been well controlled, no exposure to NSAIDs, CHRISTOFER inhibitor or ARB. Multiple exposure to IV contrast with CT scan including last CT with IV contrast on 07/19/2023 can certainly increase risk for contrast-induced nephropathy. All of the antibiotic can potentially cause nephrotoxicity although unlikely AIN, specially Zosyn certainly can cause nephrotoxicity. Other possibilities such as infection related GN remains although with no hematuria, seems unlikely. Zosyn was discontinued and restarted on cefepime 1 g every 12 hours yesterday. Progressive worsening of renal function noted, creatinine up to 3.4 this morning with decreased urine output and poor p.o. intake. --Encourage increase p.o. intake, recommend starting on IV normal saline at 80 mL/h until p.o. intake improves. We will monitor volume status closely however, if no improvement in urine output may need to stop IV fluid. --avoid all NSAIDs --Dose medications for eGFR less than 30 --waiting on complements and 24 h urine for better assessment of proteinuria. Will follow. Admission and Anticipated Discharge Date Admission Date: June 28, 2023 Sean Galan is seen and evaluated this morning. His shortness of breath, chest pain or abdominal pain. However, he reports decreased p.o. intake, gets easily feels full with just a bite or 2 although he reports trying to increase his fluid intake. Urine output has been, only 200 mL overnight. Renal function worsened, creatinine 3.4. Review of Systems Review of Systems: Detailed review of system was done and pertinent positives and negatives are mentioned above. Physical Exam Constitutional: WD/WN, vitals as above + ill appearing and + cachectic; no acute distress Eyes: + anicteric sclerae Neck: normal visual inspection Respiratory: no respiratory distress Auscultation: lungs clear to auscultation bilaterally Cardiovascular: Rate/Rhythm: regular rate and regular rhythm Heart Sounds: normal S1 and normal S2 Extremities: no edema Musculoskeletal: Extremities: + muscle atrophy Skin: no rashes, warm and dry Neurologic: no focal motor deficits Psychiatric: Orientation: alert and oriented x 3 Affect: euthymic affect Results & Data Vital Signs (Past 12 Hours) Vital Signs Temp Pulse Resp BP Pulse Ox O2 Del Method 07/29/23 07:13 36.6 C 91 H 18 147/89 H 99 Room Air PG Care Time/CCT Total # of Minutes Spent Total Time Spent with Patient: Total time spent is greater than 50% in coordination of care (as documented) at patient's floor/unit and/or counseling patient: Coding Level of Care Code 13581 SUB INP/OBS CARE 2/35MIN Diagnoses Acute kidney injury N17.9 Megacolon, toxic K59.[address] Z93.2 Ulcerative pancolitis with abscess K51.014 Ulcerative colitis location: ulcerative pancolitis Digestive disease complication type: with abscess Acute blood loss anemia D62 (4) Ulcerative colitis Ulcerative colitis location: ulcerative pancolitis Digestive disease complication type: with abscess Qualified Code(s): K51.014 - Ulcerative (chronic) pancolitis with abscess
[2023-07-29 11:03] LABS: Urine Total Protein 169.5 mg/dl
[2023-07-29] MEDS: SODIUM CHLORIDE 0.9% 1,000 ML IV SCH ×2 (12:15→20:55)
--- NOTE | 2023-07-29 14:42 | Hospitalist Progress Note ---
Date of Service July 29, 2023 Assessment & Plan (1) Perforated abdominal viscus: Plan: pt with recent diagnosis of Ulcerative colitis, and had sessile polyp biopsied. Presented with free air, to OR 06/28/23 with colon resection, subtotal colectomy and ileostomy. Three areas of perforation were identified, abscess and feculent material seen. Pseudomonas and Enterococcus faecium isolated. right upper quadrant drain has been removed. IR drain remains and continues to drain in luq manipulate on 07/23/[address] scan 07/19 shows persistent fluid collections consistent with abscess 07/23/2023 shows a leukocytosis Infectious disease initial recommendations -Increased daptomycin to 600 mg IV daily -, fluconazole 400 mg PO daily due to concerns for possible antibiotic induced kidney injury patient was changed from Zosyn back to cefepime. The patient is escalation or worsening of renal function occurred somewhere after Shaylee was engaged on 07/22/2023 Final duration of abx will be based on resolution of abscesses on follow-up imaging and clinical improvement. 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 This may need to occur with the concern for antibiotic use renal disease as we will not have defined diagnosis of this until the complements are returned and we do not have the ability to perform a renal biopsy in our system and hopefully that can be procured at [facility] or somewhere close to that. 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 urine culture from 07/27 negative for infection Complements sent by nephrology currently pending start NS at 80mL/hr until po intake improves (3) Acute blood loss anemia: Plan: Postoperatively. stable hgb (4) Hard of hearing: Plan: Supportive care (5) Encephalopathy: Plan: Acute encephalopathy, probably metabolic. Now resolved. Continue supportive care. Head CT scan negative. Plan Dispo-continued stay Admission and Anticipated Discharge Date Admission Date: June 28, 2023 Subjective Pt eating very little. Only has mild abd pain. Is making urine but not as much as previous. I discussed his care with Nephrology Physical Exam Constitutional: + underweight Respiratory: normal respiratory effort, lungs clear to auscultation Cardiovascular: RRR, no murmur, no edema Gastrointestinal (Abdomen): Inspection/Auscultation: + abdomen abnormal to inspection (colostomy bag with stool in place, drain from Left abdomen) Percussion/Palpation: abdomen soft; abdomen nontender Psychiatric: A+Ox3, euthymic affect Results & Data Results & Data Vital Signs (Past 12 Hours) Vital Signs Temp Pulse Resp BP Pulse Ox O2 Del Method 07/29/23 09:00 Room Air 07/29/23 07:13 36.6 C 91 H 18 147/89 H 99 Room Air Laboratory Results BMP reviewed PG Care Time/CCT Total # of Minutes Spent Total Time Spent with Patient: Total time spent is greater than 50% in coordination of care (as documented) at patient's floor/unit and/or counseling patient: Coding Level of Care Code 93773 SUB INP/OBS CARE 2/35MIN Diagnoses Perforated abdominal viscus R19.8 Acute kidney injury N17.9 Acute blood loss anemia D62 Bilateral hearing loss, unspecified hearing loss type H91.93 Hearing loss type: unspecified Laterality: bilateral Encephalopathy G93.40 (4) Hard of hearing Hearing loss type: unspecified Laterality: bilateral Qualified Code(s): H91.93 - Unspecified hearing loss, bilateral
[2023-07-29 15:08] LABS: Complement C3 88 mg/dL (82-185)
[2023-07-29 18:41] LABS: Total Protein 24 Hour Urine 847.5 mg/24 Hr (0-149.1)
[2023-07-29] MEDS: MELATONIN 3 MG TAB PO SCH (21:06)
[2023-07-30] MEDS: metroNIDAZOLE 500 MG TAB PO SCH ×3 (05:38→21:52)
[2023-07-30] MEDS: CEFEPIME 1,000 MG in SYRINGE 0 ML IV SCH ×2 (05:38→17:00)
[2023-07-30 08:06] LABS: Hematocrit (blood only) 31.3 % (42.0-52.0); Hemoglobin 9.5 g/dl (14.0-18.0); Mean Corpuscular Hemoglobin 28.3 pg (25.0-34.0); Mean Corpuscular Hgb Conc 30.4 g/dL (32.0-36.0); Mean Corpuscular Volume 93.2 fL (80.0-100.0); Mean Platelet Volume 9.3 fL (9.4-12.4); Platelet Count 443 K/uL (130-400); RDW Coefficient of Variation 17.1 % (11.5-14.5); RDW Standard Deviation 58.1 fL (36.4-46.3); Red Blood Count 3.36 M/uL (4.70-6.10); White Blood Count 10.52 K/ul (4.8-10.8)
[2023-07-30 08:25] LABS: Albumin Level 2.4 gm/dl (3.4-5.0); BUN Creatinine Ratio 6.9 (10-20); Calcium 8.3 mg/dl (8.6-10.3); Creatinine Clr Calc Pharmacy 17.1 ml/min; Est GFR (African American) 20.9 ml/min; Potassium 4.1 mmol/L (3.5-5.1)
[2023-07-30 08:26] LABS: Basophils # (auto) 0.09 K/uL (0.00-0.20); Basophils % (auto) 0.9 %; Eosinophils # (auto) 0.27 K/uL (0.00-0.50); Eosinophils % (auto) 2.6 %; Immature Granulocytes # (auto) 0.05 K/uL (0.01-0.20); Immature Granulocytes % (auto) 0.5 %; Lymphocytes # (auto) 1.12 K/uL (1.20-3.40); Lymphocytes % (auto) 10.6 %; Monocytes # (auto) 0.41 K/uL (0.11-0.59); Monocytes % (auto) 3.9 %; Neutrophils # (auto) 8.58 K/uL (1.40-6.50); Neutrophils % (auto) 81.5 %; RBC Morphology Unremarkable
[2023-07-30 08:39] LABS: Thyroid Stimulating Hormone 5.923 uIu/ml (0.300-4.500)
[2023-07-30 08:40] LABS: Folate (Folic Acid),Ser orPlas 14.3 ng/ml (>5.38)
[2023-07-30 08:45] LABS: Ferritin 675.7 ng/ml (8-388)
[2023-07-30] MEDS: FAMOTIDINE 20 MG TAB PO SCH ×2 (08:52→19:29)
[2023-07-30] MEDS: FLUCONAZOLE 100 MG TAB PO SCH (08:52)
[2023-07-30] MEDS: SUCRALFATE 1 GM/10 ML UDC PO SCH ×4 (08:52→19:30)
[2023-07-30] MEDS: HEPARIN SOD 5,000 UNIT/0.5 ML VIAL SQ SCH ×2 (08:57→19:30)
[2023-07-30] MEDS: SODIUM CHLORIDE 0.9% 1,000 ML IV SCH ×2 (09:10→21:52)
[2023-07-30 09:18] LABS: T4 Free Thyroxine 0.43 ng/dl (0.61-1.60)
--- NOTE | 2023-07-30 10:12 | Nephrology Progress Note ---
Date of Service July 30, 2023 Assessment & Plan (1) Acute kidney injury: (2) Megacolon, toxic: (3) Ileostomy in place: (4) Ulcerative colitis: (5) Acute blood loss anemia: Plan 53 y o m admitted with Toxic megacolon with new diagnosis of ulcerative colitis, s/p exploratory laparotomy on 06/28/23. Found to have multiple intra-abdominal abscesses and had multiple CT with IV contrast over last 1 month. Also has been multiple courses of antibiotic including cefepime, caspofungin, currently on Zosyn, daptomycin and fluconazole for MRSA and Pseudomonas intra-abdominal infection and abscess. Developed DERIK over last few days with otherwise normal kidney function over last few weeks, creatinine was 0.9 until 07/21/2023. Creatinine was noted to be 2.3 on 07/25/2023 and has been progressively worsening and up to 2.9 this morning. Urinalysis with proteinuria but no h ematuria or pyuria. Renal ultrasound was otherwise unremarkable. Blood pressure has been well controlled, no exposure to NSAIDs, CHRISTOFER inhibitor or ARB. Multiple exposure to IV contrast with CT scan including last CT with IV contrast on 07/19/2023 can certainly increase risk for contrast-induced nephropathy. All of the antibiotic can potentially cause nephrotoxicity although unlikely AIN, specially Zosyn certainly can cause nephrotoxicity. Other possibilities such as infection related GN remains although with no hematuria, seems unlikely. 24 h urine protein 850 mg Zosyn was discontinued and restarted on cefepime 1 g every 12 hours yesterday. Creatinine up to 3.6 this morning however rate of rise in creatinine seem to have slowed down, electrolyte acceptable.. --Continue on IV fluid, encourage increase p.o. intake, hopefully creatinine will plateau and start to improve. Monitor intake and output. --avoid all NSAIDs --Dose medications for eGFR less than 30 Will follow. Admission and Anticipated Discharge Date Admission Date: June 28, 2023 Sean Galan was seen and evaluated this morning. Overall he feels poorly, complaining of ongoing abdominal discomfort. P.o. intake remains poor and gets easily food but reports trying to increase the fluid intake. Has been tolerating IV fluid, denies shortness of breath. Creatinine slightly increased today but the rate of rise seems to have slowed down. Electrolyte acceptable. Decent UO. Review of Systems Review of Systems: Detailed review of system was done and pertinent positives and negatives are mentioned above. Physical Exam Constitutional: WD/WN, vitals as above + ill appearing and + cachectic; no acute distress Eyes: + anicteric sclerae Neck: normal visual inspection Respiratory: no respiratory distress Auscultation: lungs clear to auscultation bilaterally Cardiovascular: RRR, no murmur, no edema Musculoskeletal: Extremities: + muscle atrophy Skin: no rashes, warm and dry Neurologic: no focal motor deficits Psychiatric: Orientation: alert and oriented x 3 Affect: euthymic affect Results & Data Vital Signs (Past 12 Hours) Vital Signs Temp Pulse Resp BP Pulse Ox O2 Del Method 07/30/23 07:33 36.4 C L 80 16 147/86 H 100 Room Air 07/29/23 22:35 36.4 C L 94 H 18 147/90 H 100 Room Air PG Care Time/CCT Total # of Minutes Spent Total Time Spent with Patient: Total time spent is greater than 50% in coordination of care (as documented) at patient's floor/unit and/or counseling patient: Coding Level of Care Code 52442 SUB INP/OBS CARE 3/50MIN Diagnoses Acute kidney injury N17.9 Megacolon, toxic K59.[address] Z93.2 Ulcerative pancolitis with abscess K51.014 Ulcerative colitis location: ulcerative pancolitis Digestive disease complication type: with abscess Acute blood loss anemia D62 (4) Ulcerative colitis Ulcerative colitis location: ulcerative pancolitis Digestive disease complication type: with abscess Qualified Code(s): K51.014 - Ulcerative (chronic) pancolitis with abscess
--- NOTE | 2023-07-30 13:37 | Infectious Disease Progress Nt ---
Date of Service July 30, 2023 Assessment & Plan (1) Encephalopathy: (2) Sepsis: (3) S/P colon resection: (4) Pneumoperitoneum: (5) Ulcerative colitis: (6) Perforated abdominal viscus: Plan Micro 07/08 UCx NG 07/06 Abd fluid cx: PsA #1, PsA #2 (dailey-sensitive), VRE (S dapto, OSVALDO 4) 06/28 Abd fluid cx: PsA, C albicans/dub, MSSA 06/28 BCx x2: NG Abx/Antifungals: Dapto 07/12 - ongoing Zosyn 06/28-07/09, 07/22 - ongoing Flucon 07/14- ongoing Cefepime 06/28, 07/11-07/22 flagyl 06/28, 07/12- 07/22 Caspofungin 06/29-07/10 Problems: # Polymicrobial Feculent Peritonitis s/p ruptured viscous: MSSA, PsA, VRE, Mariely alb/dub # Multiple abdominal abscess s/p IR drain placement # Ulcerative Pancolitis # Persistent Leukocytosis 53 yo incarcerated M recently diagnosed with ulcerative pancolitis, started on prednisone and mesalamine who presented on 06/28 with abdominal pain and vomiting, found to have perforated viscous with pneumoperitoneum and secondary polymicrobial feculent peritonitis s/p ex-lap, subtotal colectomy, and ileostomy (06/28). He was found to have multiple areas of perforation w/in the cecum/transverse/sigmoid colon with feculent peritonitis with multiple abscesses throughout the abdominal cavity. DAVID drains placed. Abd fluid cx + for Mariely albicans/dubliniensis, MSSA and PsA. He received Zosyn and Caspofungin. His hospital course c/b persistent leukocytosis and progressive encephalopathy. Repeat CTAB 07/05 showed persistent collections in the abdomen. He underwent LUQ fluid collection drain placement by IR on 07/06, which grew 2 strains of PSA and VRE. Abx were switched to cefepime, flagyl and Daptomycin. It was felt that Zosyn may be contributing to confusion. Head CT was unremarkable. MS improved on Cefepime. CT A/P with IV contrast on 07/19 showed numerous large residual intra-abdominal fluid collections, modestly decreased in size. Leukocytosis overall improved, but increased to 21.1 on 07/23. LUQ drain noted to be dislodged/kinked, so LUQ replaced by IR on 07/23. WBc down to 14 as of 07/25, improved with drain replacement As of 07/30-->10 Recommendations: -Continue daptomycin 600 mg IV daily (~12 mg/kg IV daily CHANGED TO q 48 given increased cr ) given VRE dapto OSVALDO 4. Adjust dose based on renal fxn -CK 14 on 07/27/23. Check weekly CK to monitor for toxicity. -monitor creatinine -discontinued pip-tazo in case contributing to worsening renal fxn. Continue cefepime renally dosed at 1 g IV q12 ( crcl ~17) and PO metronidazole 500 mg tid -decreased fluconazole 400--->200 mg PO daily as crcl now 17 -Final duration of abx will be based on resolution of abscesses on follow-up imaging and clinical improvement. If no improvement, he may need additional source control/drainage. -On discharge, may favor continuing IV antibiotics rather than switching to PO, for a couple reasons: 1. It is unknown how long he will be on antibiotics, so would hesitate to discharge him on a prolonged course of linezolid (for VRE coverage) as he may experience adverse effects. 2. He still has sizeable intra- abdominal fluid collections at this time and would want to ensure good PO antibiotic absorption (although most absorption happens in duodenum and jejunum, so pt would likely be fine with PO) -Can get follow-up CT in 1-2 weeks to follow-up abdominal fluid collections, assuming he remains clinically stable. d/w team ID will continue to follow. Claudy Vargas MD, MPH Infectious Disease [facility], ID Division Call [phone] with questions Admission and Anticipated Discharge Date Admission Date: June 28, 2023 Subjective This patient recommendation is based on a telemedicine consult request which was completed asynchronously through chart review and information provided by the primary physician. The patient was not seen or examined today. The evaluation is consultative in nature and all patient care and treatment decisions can either be accepted or rejected by the patient's primary hospital-based treating physician using their own independent medical judgment for their patient. Time Spent Reviewing Chart: 21 - 30 minutes cr up to 3.66 Results & Data Vital Signs (Past 12 Hours) Vital Signs Temp Pulse Resp BP Pulse Ox O2 Del Method 07/30/23 07:33 36.4 C L 80 16 147/86 H 100 Room Air 07/30/23 07:30 Room Air Laboratory Results Short CBC 07/30/23 Range/Units 07:47 WBC 10.52 (4.8-10.8) K/ul Hgb 9.5 L (14.0-18.0) g/dl Hct 31.3 L (42.0-52.0) % Plt Count 443 H (130-400) K/uL BMP 07/30/23 07:47 Sodium 138 Potassium 4.1 Chloride 111 H Carbon Dioxide 20 L BUN 25 H Creatinine 3.61 H Glucose 108 H Calcium 8.3 L Liver Function 07/30/23 Range/Units 07:47 Albumin 2.4 L (3.4-5.0) gm/dl Diagnostic Findings Microbiology 07/27/23 11:05 Urine,Clean Catch Urine Culture - Final No growth - less than 1,000 colonies/mL. 07/06/23 12:45 Abdomen, Left Upper Quadrant Gram Stain - Final 07/06/23 12:45 Abdomen, Left Upper Quadrant Aerobic and Anaerobic Culture - Final Pseudomonas aeruginosa Enterococcus faecium VRE Pseudomonas aeruginosa#2 07/08/23 21:25 Urine,Clean Catch Urine Culture - Final No growth - less than 1,000 colonies/mL. 06/28/23 18:30 Blood Aerobic Blood Culture - Final No growth in Aerobic bottle after 5 days. 06/28/23 18:30 Blood Anaerobic Blood Culture - Final No growth in Anaerobic bottle after 5 days. 06/28/23 12:58 Blood Aerobic Blood Culture - Final No growth in Aerobic bottle after 5 days. 06/28/23 12:58 Blood Anaerobic Blood Culture - Final No growth in Anaerobic bottle after 5 days. 06/28/23 15:33 Abdomen Gram Stain - Final 06/28/23 15:33 Abdomen Aerobic and Anaerobic Culture - Final Pseudomonas aeruginosa Mariely albicans/dubliniensis Staphylococcus aureus Medications Administered Home Medications Medication Instructions Recorded Confirmed Last Taken mesalamine 4 gram/60 mL enema 4 g (60 mL) GA HS 1 month #1,800 mL 06/22/23 06/28/23 Unknown mesalamine 800 mg tablet,delayed 1,600 mg (2 x 800 mg) PO TID 1 06/22/23 06/28/23 Unknown release month #180 tabs prednisone 20 mg tablet 40 mg (2 x 20 mg) PO DAILY 1 month 06/22/23 06/28/23 Unknown #60 tabs Active Medications Generic Name Dose Route Start Last Admin Trade Name Laury PRN Reason Stop Dose Admin Acetaminophen 650 mg 07/21/23 09:13 07/21/23 20:40 Acetaminophen 325 Mg Tab PO 08/20/23 09:12 650 mg Q4H PRN Administration Pain Famotidine 20 mg 07/16/23 21:00 07/30/23 08:52 Famotidine 20 Mg Tab PO 08/15/23 20:59 20 mg BID HERNESTO Administration Heparin Sodium (Beef Lung) 5 ml 07/05/23 14:28 07/28/23 17:25 Heparin 10 Unit/Ml 5 Ml Flush FLUSH 08/04/23 14:27 5 ml PRN PRN Administration Flush Heparin Sodium (Porcine) 5,000 units 07/08/23 09:00 07/30/23 08:57 Heparin Sod 5,000 Unit/0.5 Ml Vial SQ 08/07/23 08:59 Not Given Q12 HERNESTO Daptomycin 600 mg/ Syringe 12 mls @ 6 mls/min 07/27/23 07:00 07/29/23 06:04 IV 07/31/23 06:59 6 mls/min Q48H HERNESTO Administration Protocol Cefepime HCl 1,000 mg/ Syringe 10 mls @ 5 mls/min 07/28/23 17:00 07/30/23 17:00 IV 08/07/23 16:59 5 mls/min Q12H HERNESTO Administration Protocol Sodium Chloride 1,000 mls @ 80 mls/hr 07/29/23 11:15 07/30/23 09:10 Nss IV 08/28/23 11:14 80 mls/hr .[id number] HERNESTO Administration Melatonin 3 mg 07/13/23 21:00 07/29/23 21:06 Melatonin 3 Mg Tab PO 08/12/23 20:59 3 mg HS HERNESTO Administration Metronidazole 500 mg 07/28/23 22:00 07/30/23 13:41 Metronidazole 500 Mg Tab PO 08/07/23 21:59 500 mg Q8 HERNESTO Administration Protocol Oxycodone/Acetaminophen 1 tab 07/21/23 09:31 07/30/23 13:42 Oxycodone/Acetaminophen 5mg/325mg Tab PO 08/04/23 09:30 1 tab Q4H PRN Administration Pain Sucralfate 1 gm 07/21/23 13:00 07/30/23 17:00 Sucralfate 1 Gm/10 Ml Udc PO 08/20/23 12:59 1 gm QID HERNESTO Administration (5) Ulcerative colitis Digestive disease complication type: with abscess Ulcerative colitis location: ulcerative pancolitis Qualified Code(s): K51.014 - Ulcerative (chronic) pancolitis with abscess
[2023-07-30] MEDS: oxyCODONE/ACETAMINOPHEN 5mg/325mg TAB PO PRN ×2 (13:42→19:28)
--- NOTE | 2023-07-30 18:38 | Hospitalist Progress Note ---
Date of Service July 30, 2023 Assessment & Plan (1) Perforated abdominal viscus: Plan: pt with recent diagnosis of Ulcerative pancolitis, and had sessile polyp biopsied. Presented with free air, to OR 06/28/23 with colon resection with rectal stump remaining, and ileostomy. Three areas of perforation were identified, abscess and feculent material seen. Pseudomonas and Enterococcus faecium isolated. right upper quadrant drain has been removed. IR drain remains and continues to drain in LUQ manipulated on 07/23/[address] scan 07/19 shows persistent fluid collections consistent with abscess 07/23/2023 shows a leukocytosis hence the drain manipulation WOund vac in place over Q Infectious disease recommendations -continue daptomycin, fluconazole renally adjusted daily -due to concerns for possible antibiotic induced DERIK, patient was changed from Zosyn back to cefepime. Final duration of abx will be based on resolution of abscesses on follow-up imaging and clinical improvement. will need to coordinate with group home to see if they are capable to take care of patient with custodial antibiotic recommendations wound VAC in place, interventional radiology drain in place,patient's oral intake is poor-Dietary following -Patient will need repeat CT scan in about 2 weeks -change wound vac q3 days Extensive discussion of the group home system current plan in place to be the patient returns to the group home on 07/29/2023 after 24-hour urine is collected, however cancel discharge for worsening renal function Patient will then have supplies to continue antibiotic care at [place] but with eventual transition to [facility] group home system. This may need to occur with the concern for antibiotic use renal disease as we will not have defined diagnosis of this until the complements are returned and we do not have the ability to perform a renal biopsy in our system and hopefully that can be procured at [facility] or somewhere close to that. (2) Acute kidney injury: Plan: Noted 07/25-maybe atn due to poor po intake, ain from meds not likely as no WBCs on UA, could be OSWALDO from CT scans Elastic Attacher Coverstitch rising further today to 3.6 but is plateauing, BUN remains fairly low at 25 Not volume overloaded, K+ ok, not acidotic but HCO3 down to 20 US suggest debris in bladder, thickened bladder wall but no obstruction, but shows MRD ua with protein and blood no casts, nephrology consultation 24-hour urine with 850mg protein urine culture from 07/27 negative for infection Complements sent by nephrology negative Cont NS at 80mL/hr until po intake improves Follow BMP (3) Acute blood loss anemia: Plan: Postoperatively. stable hgb B12, folate, iron studies normal likely from chronic disease follow CBC (4) Hard of hearing: Plan: Supportive care (5) Encephalopathy: Plan: Acute encephalopathy, probably metabolic. Now resolved. Continue supportive care. Head CT scan negative. Plan Dispo-continued stay Admission and Anticipated Discharge Date Admission Date: June 28, 2023 Subjective Still barely eating anything. Says he feels full with only 1-2 bites of food. Is drinking fluids, has output in ostomy. Says he hates the taste of Boost Ambulated today in halls with PT Physical Exam Constitutional: + underweight Respiratory: normal respiratory effort, lungs clear to auscultation Cardiovascular: RRR, no murmur, no edema Gastrointestinal (Abdomen): Inspection/Auscultation: + abdomen abnormal to inspection (colostomy bag with stool in place, drain from Left abdomen) Percussion/Palpation: abdomen soft; abdomen nontender Wound vac in place LLQ Psychiatric: A+Ox3, euthymic affect Results & Data Results & Data Vital Signs (Past 12 Hours) Vital Signs Temp Pulse Resp BP Pulse Ox O2 Del Method 07/30/23 15:48 36.3 C L 78 16 156/86 H 100 Room Air 07/30/23 07:33 36.4 C L 80 16 147/86 H 100 Room Air 07/30/23 07:30 Room Air Laboratory Results CBC, BMP, iron studies, TSH, B12 and folate reviewed PG Care Time/CCT Total # of Minutes Spent Total Time Spent with Patient: Total time spent is greater than 50% in coordination of care (as documented) at patient's floor/unit and/or counseling patient: Coding Level of Care Code 42880 SUB INP/OBS CARE 2/35MIN Diagnoses Perforated abdominal viscus R19.8 Acute kidney injury N17.9 Acute blood loss anemia D62 Bilateral hearing loss, unspecified hearing loss type H91.93 Hearing loss type: unspecified Laterality: bilateral Encephalopathy G93.40 (4) Hard of hearing Hearing loss type: unspecified Laterality: bilateral Qualified Code(s): H91.93 - Unspecified hearing loss, bilateral
[2023-07-30] MEDS: MELATONIN 3 MG TAB PO SCH (19:29)
[2023-07-31] MEDS: metroNIDAZOLE 500 MG/100 ML BAG IV SCH ×3 (06:16→21:23)
[2023-07-31] MEDS: CEFEPIME 1,000 MG in SYRINGE 0 ML IV SCH ×2 (06:17→17:25)
[2023-07-31 07:52] LABS: Hematocrit (blood only) 29.5 % (42.0-52.0); Hemoglobin 9.3 g/dl (14.0-18.0); Mean Corpuscular Hemoglobin 28.5 pg (25.0-34.0); Mean Corpuscular Hgb Conc 31.5 g/dL (32.0-36.0); Mean Corpuscular Volume 90.5 fL (80.0-100.0); Mean Platelet Volume 9.4 fL (9.4-12.4); Platelet Count 429 K/uL (130-400); RDW Coefficient of Variation 17.1 % (11.5-14.5); RDW Standard Deviation 57.1 fL (36.4-46.3); Red Blood Count 3.26 M/uL (4.70-6.10); White Blood Count 8.63 K/ul (4.8-10.8)
[2023-07-31 08:20] LABS: Albumin Level 2.3 gm/dl (3.4-5.0); Calcium 8.1 mg/dl (8.6-10.3); Potassium 4.1 mmol/L (3.5-5.1)
[2023-07-31 08:25] LABS: BUN Creatinine Ratio 6.9 (10-20); Creatinine Clr Calc Pharmacy 16.3 ml/min; Est GFR (African American) 19.8 ml/min; Est GFR (Non-African American) 17.1 ml/min; Phosphorus 3.2 mg/dl (2.5-4.9)
[2023-07-31] MEDS: FLUCONAZOLE 100 MG TAB PO SCH (08:57)
[2023-07-31] MEDS: HEPARIN SOD 5,000 UNIT/0.5 ML VIAL SQ SCH ×2 (08:57→19:50)
[2023-07-31] MEDS: FAMOTIDINE 20 MG TAB PO SCH ×2 (08:57→19:46)
[2023-07-31] MEDS: SUCRALFATE 1 GM/10 ML UDC PO SCH ×4 (08:57→19:46)
[2023-07-31] MEDS: oxyCODONE/ACETAMINOPHEN 5mg/325mg TAB PO PRN ×3 (09:01→19:54)
[2023-07-31] MEDS: SODIUM CHLORIDE 0.9% 1,000 ML IV SCH (10:14)
--- NOTE | 2023-07-31 10:59 | Nephrology Progress Note ---
Date of Service July 31, 2023 Assessment & Plan (1) Acute kidney injury: Plan: Baseline creatinine less than 1 mg/dL (as recently as Jul 21). Non-oliguric. Creatinine continues to rise. Clinical presentation suggestive of ATN versus contrast-induced nephropathy. Cannot exclude possible AIN but less likely. Urine microscopy not consistent with GN. C3/4 normal. No obstruction. Volume status remains euvolemic to hypovolemic. Due to lack of appetite and redu shannan PO intake, IV fluids have been continued. For hyperchloremic NAGMA in setting of kidney dysfunction and NSS, 0.9% NaCl was swithced to balanced IVF. Electrolytes are acceptable. There is no emergent indication for MACHINIST FIRST CLASS. Potential future indications for dialysis were discussed with Adama this AM. Continue to document strict I/O's. Repeat metabolic profile tomorrow AM. (2) Perforated abdominal viscus: Plan: s/p Ex lap subtotal colectomy and ileostomy formation June 28. Presented with ulcerative pancolitis and perforated viscus with intraabdominal infection. Pseudomonas and enterococcus faecium as well as C albicans. Multiple abdominal fluid collections/abscesses. Remains on cefepime, fluconazole, and metronidazol e. Tolerating therapy well. Wound vac in place. (3) Acute blood loss anemia: Plan: Hemoglobin stable. No need for JARRETT therapy. Admission and Anticipated Discharge Date Admission Date: June 28, 2023 Subjective No acute events overnight. No fevers or chills. Denies pain. Appetite remains poor. Adama denies nausea. Food is unappealing. Adama reports lost sense of taste. He states that he feels full and bloated after a few bites of fluid. Ostomy output has not been excessive. Voiding urine without difficulty. Physical Exam Constitutional: well developed, + thin and + frail appearing; no acute distress Eyes: + anicteric sclerae; no corneal abnormal ity ENMT: Mouth: no oral mucosal abnormality and oral mucous membranes not dry Neck: normal visual inspection and trachea midline Respiratory: normal respiratory effort Auscultation: lungs clear to auscultation bilaterally Cardiovascular: Rate/Rhythm: regular rate Heart Sounds: normal S1 and normal S2 Extremities: no edema Musculoskeletal: Extremities: no cyanosis and no clubbing Skin: normal turgor; no jaundice Neurologic: Motor/Sensory: no tremor and no asterixis Psychiatric: Orientation: alert and oriented x 3 Results & Data Vital Signs (Past 12 Hours) Vital Signs Temp Pulse Resp BP Pulse Ox O2 Del Method 07/31/23 08:40 36.3 C L 64 16 158/88 H 100 Room Air 07/31/23 08:00 Room Air Laboratory Results Laboratory Results - last 24 hr 07/31/23 07:01 WBC 8.63 RBC 3.26 L Hgb 9.3 L Hct 29.5 L MCV 90.5 MCH 28.5 MCHC 31.5 L RDW Std Deviation 57.1 H RDW Coeff of Ashley 17.1 H Plt Count 429 H MPV 9.4 Sodium 138 Potassium 4.1 Chloride 113 H Carbon Dioxide 19 L Anion Gap 6 BUN 26 H Creatinine 3.77 H Est Cr Clr Drug Dosing 16.3 Est GFR ( Amer) 19.8 Est GFR (Non-Af Amer) 17.1 BUN/Creatinine Ratio 6.9 L Glucose 104 H Calcium 8.1 L Phosphorus 3.2 Albumin 2.3 L PG Care Time/CCT Total # of Minutes Spent Total Time Spent with Patient: Total time spent is greater than 50% in coordination of care (as documented) at patient's floor/unit and/or counseling patient: Coding Level of Care Code 10942 SUB INP/OBS CARE 3/50MIN Diagnoses Acute kidney injury N17.9 Perforated abdominal viscus R19.8 Acute blood loss anemia D62
[2023-07-31] MEDS: PLASMA-LYTE A 1,000 ML IV SCH ×2 (11:44→19:45)
--- NOTE | 2023-07-31 12:14 | Hospitalist Progress Note ---
Date of Service July 31, 2023 Assessment & Plan (1) Perforated abdominal viscus: Plan: Patient with recent diagnosis of Ulcerative pancolitis, and had sessile polyp biopsied along with other biopsies on a colonoscopy during previous admission. Presented with free air, to OR 06/28/23 with colon resection with rectal stump remaining, and ileostomy. Three areas of perforation were identified, abscess and feculent material seen. Pseudomonas, Staphylococcus aureus, and Enterococcus faecium as well as Mariely albicans isolated. RUQ drain has been removed. IR drain remains and continues to drain in LUQ manipulated on 07/23/[address] scan 07/19 shows persistent fluid collections consistent with abscess 07/23/2023 shows a leukocytosis hence the drain manipulation WOund vac in place over LLQ Leukocytosis no resolved, afebrile P.o. intake remains extremely poor-dietary is following Appreciate infectious disease recommendations -continue daptomycin, cefepime, renally adjusted fluconazole, and metronidazole -due to concerns for possible antibiotic induced DERIK, patient was changed from Zosyn back to cefepime. -Consult speech therapy given perceived issues with swallowing and taste -Start Biotene mouth spray -Final duration of abx will be based on resolution of abscesses on follow-up imaging and clinical improvement. Will most likely recommend IV as opposed to p.o. given poor oral intake -repeat CT scan in about 2 weeks -change wound vac q3 days -Check CK once weekly while on daptomycin, follow CBC, CMP (2) Acute kidney injury: Plan: First noted 07/25-maybe atn due to poor po intake, ain from meds not likely as no WBCs on UA, could be OSWALDO from CT scans Hydro Pneumatic Tester continues to increase to 3.77, but is plateauing, BUN remains fairly low at 26 Not volume overloaded, K+ ok, not acidotic but HCO3 down to 19 Nonoliguric US suggest debris in bladder, thickened bladder wall but no obstruction, but shows MRD UA with protein and blood, no casts, nephrology consultation 24-hour urine with 850mg protein urine culture from 07/27 negative for infection Complements sent by nephrology negative -Change normal saline to Plasma-Lyte given hyperchloremic non-anion gap metabolic acidosis -Follow BMP -Appreciate nephrology consultation -Follow urine output (3) Acute blood loss anemia: Plan: Postoperatively. No bleeding noted from anywhere stable hgb today at 9.3 B12, folate, iron studies normal TSH mildly elevated and free T4 mildly low-follow likely from chronic disease follow CBC (4) Hard of hearing: Plan: Supportive care, wears hearing device (5) Encephalopathy: Plan: Acute encephalopathy, probably metabolic. Now resolved. Continue supportive care. Head CT scan negative. (6) Ulcerative colitis: Plan: Patient with ulcerative colitis diagnosed by colonoscopy in 06/2023 Now status post subtotal colectomy with only rectal stump remaining No treatment needed at this point but will need continued surveillance for colorectal CA of the rectal stump Will need follow-up with GI as an outpatient Plan Dispo-continued stay Extensive discussion with the senior care system by previous hospitalist-current plan in place to be the patient returns to the senior care when medically stable Patient will then have supplies to continue antibiotic care at [place] but with eventual transition to [facility] system which is a more robust medical facility Admission and Anticipated Discharge Date Admission Date: June 28, 2023 Subjective Patient still feeling very averse to eating. He reports very dry mouth with trying to eat anything. No painful swallowing and does not feel like food gets stuck in his chest. No trouble with drinking liquids. Mild abdominal pain. No other complaints. Physical Exam Constitutional: + underweight ENMT: Mouth: no oropharynx abnormality, no oral mucosal abnormality and no tongue abnormality Respiratory: normal respiratory effort, lungs clear to auscultation Cardiovascular: RRR, no murmur, no edema Gastrointestinal (Abdomen): Inspection/Auscultation: normal bowel sounds and + abdominal surgical drain present; + abdomen abnormal to inspection (colostomy bag with stool in place, drain from Left abdomen) Percussion/Palpation: abdomen soft; abdomen nontender Psychiatric: A+Ox3, euthymic affect Results & Data Results & Data Vital Signs (Past 12 Hours) Vital Signs Temp Pulse Resp BP Pulse Ox O2 Del Method 07/31/23 08:40 36.3 C L 64 16 158/88 H 100 Room Air 07/31/23 08:00 Room Air Laboratory Results CBC, BMP, TSH and free T4 reviewed Diagnostic Findings KUB reviewed PG Care Time/CCT Total # of Minutes Spent Total Time Spent with Patient: Total time spent is greater than 50% in coordination of care (as documented) at patient's floor/unit and/or counseling patient: Coding Level of Care Code 70113 SUB INP/OBS CARE 2/35MIN Diagnoses Perforated abdominal viscus R19.8 Acute kidney injury N17.9 Acute blood loss anemia D62 Bilateral hearing loss, unspecified hearing loss type H91.93 Hearing loss type: unspecified Laterality: bilateral Encephalopathy G93.40 Ulcerative pancolitis with abscess K51.014 Ulcerative colitis location: ulcerative pancolitis Digestive disease complication type: with abscess (4) Hard of hearing Hearing loss type: unspecified Laterality: bilateral Qualified Code(s): H91.93 - Unspecified hearing loss, bilateral (6) Ulcerative colitis Ulcerative colitis location: ulcerative pancolitis Digestive disease complication type: with abscess Qualified Code(s): K51.014 - Ulcerative (chronic) pancolitis with abscess
[2023-07-31] MEDS: DAPTOmycin 600 MG in SYRINGE 0 ML IV SCH (14:06)
--- NOTE | 2023-07-31 14:17 | XRay Report ---
KUB CLINICAL HISTORY: Early satiety. Colostomy. FINDINGS: 2 AP supine abdominal radiographs are correlated with abdominal CT dated 07/19/2023. A percu taneous drain projects over the left upper quadrant. No bowel obstruction is seen. An ostomy projects over the right lower quadrant and suture material projects over the pelvis. No evidence of intraperi toneal free air is seen on these supine images. There are no abnormal abdominal calcifications. There is a left pleural effusion with left basilar consolidation. IMPRESSION: 1. Nonobstructed bowel gas pattern. 2. A surgical drain projects over the left upper quadrant. 3. Left pleural effusion with left basilar consolidation. Electronically signed by: Hu Suarez M.D. 07/31/2023 2:16 PM
[2023-07-31] MEDS: MELATONIN 3 MG TAB PO SCH (19:46)
[2023-08-01] MEDS: PLASMA-LYTE A 1,000 ML IV SCH ×3 (03:27→22:39)
[2023-08-01] MEDS: metroNIDAZOLE 500 MG/100 ML BAG IV SCH ×3 (05:09→22:39)
[2023-08-01] MEDS: CEFEPIME 1,000 MG in SYRINGE 0 ML IV SCH ×2 (05:09→17:31)
[2023-08-01 07:53] LABS: Basophils % (auto) 1.1 %; Eosinophils % (auto) 2.2 %; Hematocrit (blood only) 29.5 % (42.0-52.0); Hemoglobin 9.1 g/dl (14.0-18.0); Immature Granulocytes # (auto) 0.04 K/uL (0.01-0.20); Immature Granulocytes % (auto) 0.4 %; Lymphocytes # (auto) 1.11 K/uL (1.20-3.40); Lymphocytes % (auto) 12.4 %; Mean Corpuscular Hemoglobin 28.3 pg (25.0-34.0); Mean Corpuscular Hgb Conc 30.8 g/dL (32.0-36.0); Mean Corpuscular Volume 91.6 fL (80.0-100.0); Mean Platelet Volume 8.9 fL (9.4-12.4); Monocytes # (auto) 0.62 K/uL (0.11-0.59); Monocytes % (auto) 6.9 %; Neutrophils # (auto) 6.91 K/uL (1.40-6.50); Platelet Count 405 K/uL (130-400); RDW Coefficient of Variation 17.1 % (11.5-14.5); RDW Standard Deviation 57.7 fL (36.4-46.3); Red Blood Count 3.22 M/uL (4.70-6.10); White Blood Count 8.98 K/ul (4.8-10.8)
[2023-08-01] MEDS: FAMOTIDINE 20 MG TAB PO SCH ×2 (08:09→20:32)
[2023-08-01] MEDS: SUCRALFATE 1 GM/10 ML UDC PO SCH ×4 (08:09→20:32)
[2023-08-01] MEDS: FLUCONAZOLE 100 MG TAB PO SCH (08:09)
[2023-08-01] MEDS: HEPARIN SOD 5,000 UNIT/0.5 ML VIAL SQ SCH ×2 (08:11→20:33)
[2023-08-01 08:15] LABS: Albumin Globulin Ratio 0.6 (0.9-2); Albumin Level 2.2 gm/dl (3.4-5.0); BUN Creatinine Ratio 7.7 (10-20); Bilirubin,Total 0.3 mg/dl (0.2-1.0); Calcium 7.9 mg/dl (8.6-10.3); Creatinine Clr Calc Pharmacy 17.6 ml/min; Est GFR (African American) 21.6 ml/min; Est GFR (Non-African American) 18.6 ml/min; Globulin 3.4 gm/dl (2.5-4.0); Phosphorus 3.4 mg/dl (2.5-4.9); Potassium 3.9 mmol/L (3.5-5.1); Total Protein 5.6 gm/dl (6.0-8.3)
--- NOTE | 2023-08-01 11:52 | Hospitalist Progress Note ---
Date of Service August 01, 2023 Assessment & Plan (1) Perforated abdominal viscus: Plan: Patient with recent diagnosis of Ulcerative pancolitis, and had sessile polyp biopsied along with other biopsies on a colonoscopy during previous admission. Presented with free air, to OR 06/28/23 with subtotal colon resection with rectal stump remaining, and ileostomy. Three areas of perforation were identified, abscess and feculent material seen. Pseudomonas, Staphylococcus aureus, and Enterococcus faecium as well as Mariely albicans isolated. RUQ drain has been removed. IR drain remains and continues to drain 50mL/day in LUQ manipulated on 07/23/[address] scan 07/19 shows persistent fluid collections consistent with abscess 07/23/2023 shows a leukocytosis hence the drain manipulation Wound vac in place over LLQ Leukocytosis no resolved, afebrile P.o. intake remains extremely poor-dietary is following KUB 07/31 no obstruction Appreciate infectious disease recommendations -continue daptomycin, cefepime, renally adjusted fluconazole, and metronidazole -due to concerns for possible antibiotic induced DERIK, patient was changed from Zosyn back to cefepime. -Consult speech therapy given perceived issues with swallowing and taste -Started Biotene mouth spray -start Remeron 7.5mg po hs for appetite stimulant and in case depression causing poor appetite -Final duration of abx will be based on resolution of abscesses on follow-up wanda ging and clinical improvement. Will most likely recommend IV as opposed to p.o. 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 at 3.77, BUN was never significantly elevated Manager Of Project Management now finally trending downward on 08/01 at 3.5 Not volume overloaded, K+ ok, not acidotic but HCO3 down to 18 Nonoliguric US suggest debris in bladder, thickened bladder wall but no obstruction, but shows MRD UA with protein and blood, no casts, nephrology consultation 24-hour urine with 850mg protein urine culture from 07/27 negative for infection Complements sent by nephrology negative -Continue Plasma-Lyte -Follow BMP -Appreciate nephrology consultation -Follow urine output (3) Acute blood loss anemia: Plan: Postoperatively. No bleeding noted from anywhere stable hgb today at 9.1 B12, folate, iron studies normal TSH mildly elevated and free T4 mildly low-follow likely from chronic disease follow CBC (4) Hard of hearing: Plan: Supportive care, wears hearing device (5) Encephalopathy: Plan: Acute encephalopathy, probably metabolic. Now resolved. Continue supportive care. Head CT scan negative. (6) Ulcerative colitis: Plan: Patient with ulcerative colitis diagnosed by colonoscopy in 06/2023 Now status post subtotal colectomy with only rectal stump remaining No treatment needed at this point but will need continued surveillance for colorectal CA of the rectal stump Will need follow-up with GI as an outpatient Plan Dispo-continued stay Extensive discussion with the senior care system by previous hospitalist-current plan in place to be the patient returns to the senior care when medically stable Patient will then have supplies to continue antibiotic care at [place] but with eventual transition to [facility] system which is a more robust medical facility Admission and Anticipated Discharge Date Admission Date: June 28, 2023 Subjective Pt still eating almost nothing. The mouth spray helps his breath smell better but is not helping him be able to chew better. He is agreeable to a trial of Remeron for appetite stimulant. Says he wants to eat but just has no desire Physical Exam Constitutional: + underweight Respiratory: normal respiratory effort, lungs clear to auscultation Cardiovascular: RRR, no murmur, no edema Gastrointestinal (Abdomen): Inspection/Auscultation: normal bowel sounds and + abdominal surgical drain present; + abdomen abnormal to inspection (colostomy bag with stool in place, drain from Left abdomen) Percussion/Palpation: abdomen soft; abdomen nontender Psychiatric: A+Ox3, euthymic affect Results & Data Results & Data Vital Signs (Past 12 Hours) Vital Signs Temp Pulse Resp BP Pulse Ox O2 Del Method 08/01/23 07:19 36.3 C L 84 16 159/92 H 100 Room Air PG Care Time/CCT Total # of Minutes Spent Total Time Spent with Patient: Total time spent is greater than 50% in coordination of care (as documented) at patient's floor/unit and/or counseling patient: Coding Level of Care Code 73752 SUB INP/OBS CARE 2/35MIN Diagnoses Perforated abdominal viscus R19.8 Acute kidney injury N17.9 Acute blood loss anemia D62 Bilateral hearing loss, unspecified hearing loss type H91.93 Hearing loss type: unspecified Laterality: bilateral Encephalopathy G93.40 Ulcerative pancolitis with abscess K51.014 Ulcerative colitis location: ulcerative pancolitis Digestive disease complication type: with abscess (4) Hard of hearing Hearing loss type: unspecified Laterality: bilateral Qualified Code(s): H91.93 - Unspecified hearing loss, bilateral (6) Ulcerative colitis Ulcerative colitis location: ulcerative pancolitis Digestive disease complication type: with abscess Qualified Code(s): K51.014 - Ulcerative (chronic) pancolitis with abscess
--- NOTE | 2023-08-01 12:59 | Nephrology Progress Note ---
Date of Service August 01, 2023 Assessment & Plan (1) Acute kidney injury: Plan: Baseline creatinine less than 1 mg/dL (as recently as Jul 21). Non-oliguric. Creatinine slightly improved 3.77 to 3.5 mg/dL. Clinical presentation consistent with ATN +/- contrast-induced nephropathy. Cannot exclude possible AIN but less likely. Volume status remains euvolemic to hypovolemic. Due to lack of appetite and reduced PO intake, IV fluids have been continued. For hyperchloremic NAGMA in setting of kidney dysfunction balanced IVF is being provided. HCO3 supplement held. Normosol rate reduced from 125 to 100 ml/hr. Electrolytes are acceptable. 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 Potential future indications for dialysis have been reviewed. Thankfully, we are starting to see signs of kidney recovery. Continue to document strict I/O's. Repeat metabolic profile tomorrow AM. Medications appropriately dosed for kidney function. Monitor CK weekly on daptomycin. (2) Perforated abdominal viscus: Plan: s/p Ex lap subtotal colectomy and ileostomy formation June 28. Presented with ulcerative pancolitis and perforated viscus with intraabdominal infection. Pseudomonas, staph aureus, and enterococcus faecium as well as C albicans. Multiple abdominal fluid collections/abscesses. Remains on cefepime, daptomycin, metronidazole, and fluconazole. Tolerating therapy well. (3) Acute blood loss anemia: Plan: Hemoglobin stable. No need for JARRETT therapy. Admission and Anticipated Discharge Date Admission Date: June 28, 2023 Subjective No acute events overnight. No fevers or chills. Good urine output. Appetite remains poor. PO intake notably reduced. No fluid retention or edema. Review of Systems Review of Systems: All systems reviewed & are unremarkable except as noted in HPI & below Physical Exam Constitutional: well developed, + thin and + frail appearing; no acute distress Eyes: + anicteric sclerae; no corneal abnormal ity ENMT: Mouth: no oral mucosal abnormality and oral mucous membranes not dry Neck: normal visual inspection and trachea midline Respiratory: normal respiratory effort Auscultation: lungs clear to auscultation bilaterally Cardiovascular: Rate/Rhythm: regular rate Heart Sounds: normal S1 and normal S2 Extremities: no edema Musculoskeletal: Extremities: no cyanosis and no clubbing Skin: normal turgor; no jaundice Neurologic: Motor/Sensory: no tremor and no asterixis Psychiatric: Orientation: alert and oriented x 3 Results & Data Vital Signs (Past 12 Hours) Vital Signs Temp Pulse Resp BP Pulse Ox O2 Del Method 08/01/23 07:19 36.3 C L 84 16 159/92 H 100 Room Air Laboratory Results Laboratory Results - last 24 hr 08/01/23 07:33 WBC 8.98 RBC 3.22 L Hgb 9.1 L Hct 29.5 L MCV 91.6 MCH 28.3 MCHC 30.8 L RDW Std Deviation 57.7 H RDW Coeff of Ashley 17.1 H Plt Count 405 H MPV 8.9 L Immature Gran % (Auto) 0.4 Neut % (Auto) 77.0 Lymph % (Auto) 12.4 [place] % (Auto) 6.9 Eos % (Auto) 2.2 Baso % (Auto) 1.1 Neut # (Auto) 6.91 H Lymph # (Auto) 1.11 L [place] # (Auto) 0.62 H Eos # (Auto) 0.20 Baso # (Auto) 0.10 Immature Gran # (Auto) 0.04 Sodium 139 Potassium 3.9 Chloride 112 H Carbon Dioxide 18 L Anion Gap 9 BUN 27 H Creatinine 3.51 H Est Cr Clr Drug Dosing 17.6 Est GFR ( Amer) 21.6 Est GFR (Non-Af Amer) 18.6 BUN/Creatinine Ratio 7.7 L Glucose 93 Calcium 7.9 L Phosphorus 3.4 Magnesium 2.0 Total Bilirubin 0.3 AST 16 ALT 12 Alkaline Phosphatase 152 H Total Protein 5.6 L Albumin 2.2 L Globulin 3.4 Albumin/Globulin Ratio 0.6 L PG Care Time/CCT Total # of Minutes Spent Total Time Spent with Patient: Total time spent is greater than 50% in coordination of care (as documented) at patient's floor/unit and/or counseling patient: Coding Level of Care Code 51854 SUB INP/OBS CARE 3/50MIN Diagnoses Acute kidney injury N17.9 Perforated abdominal viscus R19.8 Acute blood loss anemia D62
[2023-08-01] MEDS: MELATONIN 3 MG TAB PO SCH (20:32)
[2023-08-01] MEDS: MIRTAZAPINE TAB 15 MG TAB PO SCH (20:32)
[2023-08-01] MEDS: oxyCODONE/ACETAMINOPHEN 5mg/325mg TAB PO PRN (20:35)
[2023-08-02] MEDS: metroNIDAZOLE 500 MG/100 ML BAG IV SCH ×3 (05:11→22:08)
[2023-08-02] MEDS: CEFEPIME 1,000 MG in SYRINGE 0 ML IV SCH ×2 (05:11→17:53)
[2023-08-02 06:24] LABS: BUN Creatinine Ratio 7.1 (10-20); Creatinine Clr Calc Pharmacy 16.3 ml/min; Est GFR (African American) 19.7 ml/min; Magnesium 2.2 mg/dl (1.7-2.4); Phosphorus 3.6 mg/dl (2.5-4.9); Potassium 3.7 mmol/L (3.5-5.1)
[2023-08-02] MEDS: PLASMA-LYTE A 1,000 ML IV SCH (08:40)
[2023-08-02] MEDS: FLUCONAZOLE 100 MG TAB PO SCH (09:48)
[2023-08-02] MEDS: FAMOTIDINE 20 MG TAB PO SCH (09:48)
[2023-08-02] MEDS: HEPARIN SOD 5,000 UNIT/0.5 ML VIAL SQ SCH ×2 (09:48→20:06)
[2023-08-02] MEDS: SUCRALFATE 1 GM/10 ML UDC PO SCH ×3 (09:49→18:03)
--- NOTE | 2023-08-02 12:06 | CT Scan Report ---
CT SCAN OF THE ABDOMEN AND PELVIS WITHOUT IV CONTRAST CLINICAL HISTORY: Follow-up abscesses. COMPARISON STUDY: Abdominal CT dated 07/19/2023. TECHNIQUE: Unenhanced CT scan of the abdomen and pelvis is performed from the lung bases to the proxi mal femora. Images are reviewed in the axial, sagittal, and coronal planes. IV contrast was not admin istered. Note that the examination was performed in significantly suboptimal fashion without oral and IV contrast. A dose lowering technique was utilized adhering to the principles of ALARA. CT DOSE: 387.83 mGy.cm FINDINGS: Lung bases: The heart is normal in size noting a small pericardial effusion. There is diminished atte nuation of the cardiac blood pool as compared to the myocardium suggesting anemia. Emphysematous whiting ges noted. There are moderate left and small right pleural effusions with dependent consolidation. Liver: The unenhanced liver is normal in size, contour, and attenuation. There is no intrahepatic michael iary ductal dilatation. Gallbladder: Distended but otherwise normal in appearance. Spleen: Normal in size and attenuation. An 11 mm hypodensity in the anterior spleen is unchanged. Pancreas: The unenhanced pancreas is normal in size. Scattered parenchymal calcifications suggest chr onic pancreatitis. Adrenal glands: Unremarkable. Kidneys: The unenhanced kidneys are normal in size and without hydronephrosis. No renal calculi are i dentified. There is no evidence of contour deforming mass lesion. Abdominal vasculature: The abdominal aorta is normal in course and caliber noting moderate atheroscle rotic calcification. Bowel: There is postoperative change from subtotal colectomy. A Tisha pouch is noted in the pelvis . No bowel obstruction is seen. Peritoneum: There is a wound in the infraumbilical abdominal wall. Again seen are numerous intraperit charles fluid collections. A thick-walled gas and fluid containing crescentic collection in the left up per quadrant extending from the left hemidiaphragm to below the spleen has decreased in size from pre vious, measuring approximately 9 x 9 x 7 cm as seen on axial image #704 This contains a percutaneous drainage catheter. A small multiloculated fluid collection along the gastric fundus has also decrease d in size from previous. The residual collection is not well visualized without IV contrast, likely m easuring at least 3 cm as seen on image #57. A fluid collection below the gallbladder has also decrea sed in size. This measures up to 2.5 cm seen on image #144. A thick-walled gas and fluid containing c ollection in the pelvis above the sigmoid has decreased in size from previous. This measures approxim ately 2.5 x 1.5 x 5 cm. Lymphadenopathy: None. Pelvic viscera: The bladder is distended and contains intraluminal gas. The prostate and seminal vesi cles are normal as imaged. Skeletal structures: No lytic or blastic lesions are seen. Soft tissues: There is body wall edema. IMPRESSION: 1. Significantly suboptimal examination without oral and IV contrast. 2. There are numerous residual intra-abdominal fluid collections as detailed above which are typical for abscesses. These have significantly decreased in size as compared to 07/19/2023. 3. A surgical drain is present within the largest collection in the left upper quadrant around the sp christian. 4. Small right and moderate left effusion with left basilar consolidation. These have increased in si ze to previous. 5. There is increasing body wall edema from previous. 6. Ventral abdominal wound with postsurgical change from subtotal colectomy and right lower quadrant ileostomy. 7. There is nonspecific gas within the bladder lumen. 8. Additional findings as above. ACT 112: Negative or not required by law. Electronically signed by: Hu Suarez M.D. 08/02/2023 12:04 PM
--- NOTE | 2023-08-02 12:11 | Nephrology Progress Note ---
Date of Service August 02, 2023 Assessment & Plan (1) Acute kidney injury: Plan: Baseline creatinine less than 1 mg/dL (as recently as Jul 21). Non-oliguric. Creatinine slightly increased in past 24 hours 3.5 to 3.7 mg/dL. Clinical presentation consistent with ATN +/- contrast-induced nephropathy. Cannot exclude possible AIN but less likely. Volume status remains euvolemic to hypovolemic. Due to lack of appetite and reduced PO intake, IV fluids have been continued. For hyperchloremic NAGMA in setting of kidney dysfunction IV HCO3 will be provided. Nutrition remains poor. Glucose low. IVF switched to D5 1/2NS + 75 mEq HCO3 this AM. Electrolytes are acceptable. 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 Potential future indications for dialysis have been reviewed. Unfortunately, unclear why kidney recovery may have regressed in past 24 hours. Some air is noted in the bladder without evidence of obstruction on CT this AM. Updated urine studies requested. Continue to document strict I/O's. Repeat metabolic profile tomorrow AM. Medications appropriately dosed for kidney function. Monitor CK weekly on daptomycin. (2) Perforated abdominal viscus: Plan: s/p Ex lap subtotal colectomy and ileostomy formation June 28. Presented with ulcerative pancolitis and perforated viscus with intraabdominal infection. Pseudomonas, staph aureus, and enterococcus faecium as well as C albicans. Multiple abdominal fluid collections/abscesses. Remains on cefepime, daptomycin, metronidazole, and fluconazole. Tolerating therapy well. (3) Acute blood loss anemia: Plan: Hemoglobin stable. No need for JARRETT therapy. Admission and Anticipated Discharge Date Admission Date: June 28, 2023 Subjective No acute events overnight. No fevers or chills. Denies significant abdominal pain. Mild nausea persists. Appetite remains very poor. Adama continues to struggle with PO intake. Denies fluid retention or edema. No shortness of breath. No fevers or chills. Review of Systems Review of Systems: All systems reviewed & are unremarkable except as noted in HPI & below Physical Exam Constitutional: well developed, + thin and + frail appearing; no acute distress Eyes: + anicteric sclerae; no corneal abnormal ity ENMT: Mouth: no oral mucosal abnormality and oral mucous membranes not dry Neck: normal visual inspection and trachea midline Respiratory: normal respiratory effort Auscultation: lungs clear to auscultation bilaterally Cardiovascular: Rate/Rhythm: regular rate Heart Sounds: normal S1 and normal S2 Extremities: no edema Musculoskeletal: Extremities: no cyanosis and no clubbing Skin: normal turgor; no jaundice Neurologic: Motor/Sensory: no tremor and no asterixis Psychiatric: Orientation: alert and oriented x 3 Results & Data Vital Signs (Past 12 Hours) Vital Signs Temp Pulse Resp BP Pulse Ox O2 Del Method 08/02/23 09:52 Room Air 08/02/23 07:34 36.5 C 78 18 156/92 H 100 Room Air Laboratory Results Laboratory Results - last 24 hr 08/02/23 05:43 Sodium 139 Potassium 3.7 Chloride 110 H Carbon Dioxide 17 L Anion Gap 12 H BUN 27 H Creatinine 3.78 H Est Cr Clr Drug Dosing 16.3 Est GFR ( Amer) 19.7 Est GFR (Non-Af Amer) 17.0 BUN/Creatinine Ratio 7.1 L Glucose 84 Calcium 8.0 L Phosphorus 3.6 Magnesium 2[address] SCAN OF THE ABDOMEN AND PELVIS WITHOUT IV CONTRAST COMPARISON STUDY: Abdominal CT dated 07/19/2023. FINDINGS: Lung bases: The heart is normal in size noting a small pericardial effusion. There is diminished attenuation of the cardiac blood pool as compared to the myocardium suggesting anemia. Emphysematous changes noted. There are moderate left and small right pleural effusions with dependent consolidation. Liver: The unenhanced liver is normal in size, contour, and attenuation. There is no intrahepatic biliary ductal dilatation. Gallbladder: Distended but otherwise normal in appearance. Spleen: Normal in size and attenuation. An 11 mm hypodensity in the anterior spleen is unchanged. Pancreas: The unenhanced pancreas is normal in size. Scattered parenchymal calcifications suggest chronic pancreatitis. Adrenal glands: Unremarkable. Kidneys: The unenhanced kidneys are normal in size and without hydronephrosis. No renal calculi are identified. There is no evidence of contour deforming mass lesion. Abdominal vasculature: The abdominal aorta is normal in course and caliber noting moderate atherosclerotic calcification. Bowel: There is postoperative change from subtotal colectomy. A Tisha pouch is noted in the pelvis. No bowel obstruction is seen. Peritoneum: There is a wound in the infraumbilical abdominal wall. Again seen are numerous intraperitoneal fluid collections. A thick-walled gas and fluid containing crescentic collection in the left upper quadrant extending from the left hemidiaphragm to below the spleen has decreased in size from previous, measuring approximately 9 x 9 x 7 cm as seen on axial image #704 This contains a percutaneous drainage catheter. A small multiloculated fluid collection along the gastric fundus has also decreased in size from previous. The residual colle ction is not well visualized without IV contrast, likely measuring at least 3 cm as seen on image #57. A fluid collection below the gallbladder has also decreased in size. This measures up to 2.5 cm seen on image #144. A thick-walled gas and fluid containing collection in the pelvis above the sigmoid has decreased in size from previous. This measures approximately 2.5 x 1.5 x 5 cm. Lymphadenopathy: None. Pelvic viscera: The bladder is distended and contains intraluminal gas. The prostate and seminal vesicles are normal as imaged. Skeletal structures: No lytic or blastic lesions are seen. Soft tissues: There is body wall edema. IMPRESSION: 1. Significantly suboptimal examination without oral and IV contrast. 2. There are numerous residual intra-abdominal fluid collections as detailed above which are typical for abscesses. These have significantly decreased in size as compared to 07/19/2023. 3. A surgical drain is present within the largest collection in the left upper quadrant around the spleen. 4. Small right and moderate left effusion with left basilar consolidation. These have increased in size to previous. 5. There is increasing body wall edema from previous. 6. Ventral abdominal wound with postsurgical change from subtotal colectomy and right lower quadrant ileostomy. 7. There is nonspecific gas within the bladder lumen. PG Care Time/CCT Total # of Minutes Spent Total Time Spent with Patient: Total time spent is greater than 50% in coordination of care (as documented) at patient's floor/unit and/or counseling patient: Coding Level of Care Code 25067 SUB INP/OBS CARE 3/50MIN Diagnoses Acute kidney injury N17.9 Perforated abdominal viscus R19.8 Acute blood loss anemia D62
[2023-08-02] MEDS: SODIUM BICARBONATE 8.4% 75 MEQ in D5W AND 1/2NSS 1,000 ML IV SCH (13:10)
[2023-08-02] MEDS: DAPTOmycin 600 MG in SYRINGE 0 ML IV SCH (13:10)
[2023-08-02 18:13] LABS: Appearance Urine Clear (Clear); Bacteria Urine Automated Negative (Negative); Bilirubin Urine Negative (Negative); Blood Urine Trace (Negative); Color Urine Yellow; Glucose Urine UA Negative (Negative); Ketones Urine Trace (Negative); Leukocyte Esterase Urine Negative (Negative); Nitrite Urine Positive (Negative); Protein Urine 1+ (Negative); Specific Gravity Urine 1.011 (1.000-1.030); Urobilinogen Urine Negative (Negative); pH Urine 5.5 (4.5-7.5)
--- NOTE | 2023-08-02 18:18 | Infectious Disease Progress Nt ---
Date of Service August 02, 2023 Assessment & Plan (1) Encephalopathy: (2) Sepsis: (3) S/P colon resection: (4) Pneumoperitoneum: (5) Ulcerative colitis: (6) Perforated abdominal viscus: Plan Adama Deleon is a 53-year-old man, currently incarcerated, with history of recently diagnosed with ulcerative pancolitis, started on prednisone and mesalamine, who presented on 06/28 with abdominal pain and vomiting, found to have perforated viscus with pneumoperitoneum and secondary polymicrobial feculent peritonitis s/p ex-lap, subtotal colectomy, and ileostomy (06/28). He was found to have multiple areas of perforation w/in the cecum/transverse/sigmoid colon with feculent peritonitis with multiple intraabdominal abscesses, abd fluid cx + Mariely albicans/dubliniensis, MSSA, PsA, treated with pip-tazo and caspofungin. Repeat CT A/P 07/05 with persistent collections, s/p IR drainage of LUQ collection on 07/06, cx +PsA and VRE, with abx changed to daptomycin, cefepime, and metronidazole. Most recent CT A/P on 08/02 showing improvement of collections however still with a large 9x9x7 cm collection. Leukocytosis overall improved, though increased to 21.1 on 07/23 at which time LUQ drain noted to be dislodged and was replaced by IR on 07/23. WBC has since normalized to 8 on 07/31. Mental status has improved as well. CT A/P 07/19 showed numerous large residual intraabdominal fluid collections, modestly decreased in size. Repeat CT A/P on 08/02 showing improvement of collections however still with a large 9x9x7 cm collection. Would discuss with IR to see whether any current collections would be amenable to further drainage. Can continue daptomycin, cefepime, metronidazole, and fluconazole. Anticipate prolonged duration of antibiotics and would prefer to keep IV given the lack of source control. Will likely require several weeks of IV antibiotics with serial reimaging every 2-4 weeks and interval reassessment for source control (e.g., IR drainage). ID Problem List: # Polymicrobial Feculent Peritonitis s/p ruptured viscous: MSSA, PsA, VRE, Mariely alb/dub # Multiple abdominal abscess s/p IR drain placement # Ulcerative Pancolitis # Persistent Leukocytosis Recommendations: - Continue daptomycin 600 mg IV Q48H (renally dosed) - Continue cefepime 1000 mg IV Q12H (renally dosed) - Continue metronidazole 500 mg IV TID, can change to PO - Continue fluconazole 200 mg PO daily (renally dosed) - Would discuss with IR to see whether any current collections would be amenable to further drainage. If so, would send for bacterial & fungal cx ID will continue to follow. Camilla Hart MD, MHS Infectious Diseases [facility]/ID Connect ID Connect direct line: [phone] Admission and Anticipated Discharge Date Admission Date: June 28, 2023 Subjective This patient recommendation is based on a telemedicine consult request which was completed asynchronously through chart review and information provided by the primary physician. The patient was not seen or examined today. The evaluation is consultative in nature and all patient care and treatment decisions can either be accepted or rejected by the patient's primary hospital-based treating physician using their own independent medical judgment for their patient. Time Spent Reviewing Chart: 31+ minutes Results & Data Vital Signs (Past 12 Hours) Vital Signs Temp Pulse Resp BP Pulse Ox O2 Del Method 08/02/23 15:38 36.8 C 87 18 159/89 H 100 Room Air 08/02/23 09:52 Room Air 08/02/23 07:34 36.5 C 78 18 156/92 H 100 Room Air Diagnostic Findings Diagnostics: 08/02 CT A/P Peritoneum: There is a wound in the infraumbilical abdominal wall. Again seen are numerous intraperitoneal fluid collections. A thick-walled gas and fluid containing crescentic collection in the left upper quadrant extending from the left hemidiaphragm to below the spleen has decreased in size from previous, jb suring approximately 9 x 9 x 7 cm as seen on axial image #704 This contains a percutaneous drainage catheter. A small multiloculated fluid collection along the gastric fundus has also decreased in size from previous. The residual collection is not well visualized without IV contrast, likely measuring at least 3 cm as seen on image #57. A fluid collection below the gallbladder has also decreased in size. This measures up to 2.5 cm seen on image #144. A thick-walled gas and fluid containing collection in the pelvis above the sigmoid has decreased in size from previous. This measures approximately 2.5 x 1.5 x 5 cm. 1. Significantly suboptimal examination without oral and IV contrast. 2. There are numerous residual intra-abdominal fluid collections as detailed above which are typical for abscesses. These have significantly decreased in size as compared to 07/19/2023. 3. A surgical drain is present within the largest collection in the left upper quadrant around the spleen. 4. Small right and moderate left effusion with left basilar consolidation. These have increased in size to previous. 5. There is increasing body wall edema from previous. 6. Ventral abdominal wound with postsurgical change from subtotal colectomy and right lower quadrant ileostomy. 7. There is nonspecific gas within the bladder lumen. 8.Additional findings as above. 07/19 CT A/P 1. There are numerous large residual intra-abdominal fluid collections as above which are typical for abscesses. These have modestly decreased in size as compared to 07/10/2023. 2. A surgical drain is present within the largest collection in the left upper quadrant around the spleen. The surgical drain in the pelvis seen on 07/10/2023 has been removed. 3. Small to moderate left pleural effusion with left basilar consolidation. 4. Heterogeneous enhancement of both kidneys is nonspecific and can be seen with infection/pyelonephritis. Correlate with clinical findings/urinalysis. 5. Ventral abdominal wound with postsurgical change from subtotal colectomy and right lower quadrant ileostomy. 6. There is no bowel obstruction. 7. There is nonspecific gas within the bladder lumen. 8. Additional findings as above. Micro 07/08 UCx NG 07/06 Abd fluid cx: PsA #1, PsA #2 (dailey-sensitive), VRE (S dapto, OSVALDO 4) 06/28 Abd fluid cx: PsA, C albicans/dub, MSSA 06/28 BCx x2: NG Abx/Antifungals: Dapto 07/12 - present Fluconazole 07/14- present Cefepime 06/28, 07/11-07/22, 07/28-present flagyl 06/28, 07/12- 07/22, 07/28-present Zosyn 06/28-07/09, 07/22 07/28 Caspofungin 06/29-07/10 (5) Ulcerative colitis Ulcerative colitis location: ulcerative pancolitis Digestive disease complication type: with abscess Qualified Code(s): K51.014 - Ulcerative (chronic) pancolitis with abscess
[2023-08-02] MEDS: oxyCODONE/ACETAMINOPHEN 5mg/325mg TAB PO PRN (18:41)
--- NOTE | 2023-08-02 19:10 | Hospitalist Progress Note ---
Date of Service August 02, 2023 Assessment & Plan (1) Perforated abdominal viscus: Plan: Patient with recent diagnosis of Ulcerative pancolitis, and had sessile polyp biopsied along with other biopsies on a colonoscopy during previous admission. Presented with free air, to OR 06/28/23 with subtotal colon resection with rectal stump remaining, and ileostomy. Three areas of perforation were identified, abscess and feculent material seen. Pseudomonas, Staphylococcus aureus, and Enterococcus faecium as well as Mariely albicans isolated. RUQ drain has been removed. IR drain remains and continues to drain in LUQ manipulated on 07/23/[address] scan 07/19 shows persistent fluid collections consistent with abscess 07/23/2023 shows a leukocytosis hence the drain manipulation Repeat abdominal CT on 08/02 with improving size and multiple abscesses but still 1 that is large 9 cm-we will discuss with IR about possible drainage Wound vac remains in place over LLQ and being changed every 3 days Leukocytosis no resolved, afebrile P.o. intake remains extremely poor-dietary is following KUB 07/31 no obstruction Appreciate infectious disease recommendations -continue daptomycin, cefepime, renally adjusted fluconazole, and metronidazole -due to concerns for possible antibiotic induced DERIK, patient was changed from Zosyn back to cefepime. -Consult speech therapy given perceived issues with swallowing and taste-no difficulty with swallowing but continues to vomit-recommends GI consult -Started Biotene mouth spray -started Remeron 7.5mg po hs for appetite stimulant and in case depression causing poor appetite -Final duration of abx will be based on resolution of abscesses on follow-up imaging and clinical improvement. Will most likely recommend IV as opposed to p.o. given poor oral intake -repeat CT scan every 2 weeks until resolution -Check CK once weekly (next 08/03) while on daptomycin, follow CBC, BMP -Consult GI to see about need for EGD given persistent vomiting with small amounts of food -May need to start TPN or enteral feeds given severe malnutrition -Start IV thiamine high-dose to prevent Warnicke encephalopathy in case of deficiency given severe malnutrition (2) Acute kidney injury: Plan: First noted 07/25-maybe atn due to poor po intake, ain from meds not likely as no WBCs on UA, could be OSWALDO from CT scans Multimedia Manager peaked at 3.77, BUN was never significantly elevated Multimedia Manager worsening again today at 3.7 Not volume overloaded, K+ ok, acidosis worsening-nephrology started bicarbonate drip Nonoliguric US suggest debris in bladder, thickened bladder wall but no obstruction, but shows MRD UA with protein and blood, no casts, nephrology consultation 24-hour urine with 850mg protein urine culture from 07/27 negative for infection Complements sent by nephrology negative -Continue Plasma-Lyte -Follow BMP -Appreciate nephrology consultation -Follow urine output -Started on bicarbonate drip (3) Acute blood loss anemia: Plan: Postoperatively. No bleeding noted from anywhere stable hgb today at 9.1 B12, folate, iron studies normal TSH mildly elevated and free T4 mildly low-follow likely from chronic disease follow CBC (4) Hard of hearing: Plan: Supportive care, wears hearing device (5) Encephalopathy: Plan: Acute encephalopathy, probably metabolic. Now resolved. Continue supportive care. Head CT scan negative. (6) Ulcerative colitis: Plan: Patient with ulcerative colitis diagnosed by colonoscopy in 06/2023 Now status post subtotal colectomy with only rectal stump remaining No treatment needed at this point but will need continued surveillance for colorectal CA of the rectal stump Will need follow-up with GI as an outpatient Plan Dispo-continued stay Extensive discussion with the assisted system by previous hospitalist-current plan in place to be the patient returns to the assisted when medically stable Patient will then have supplies to continue antibiotic care at [facility] but with eventual transition to [facility] assisted system which is a more robust medical facility Admission and Anticipated Discharge Date Admission Date: June 28, 2023 Subjective Essentially has had no p.o. intake and reports that he vomits even with taking pills now. Has chronic ongoing abdominal pain Today feels pain all over his body and does not know why. I discussed his care with infectious disease Physical Exam Constitutional: + underweight Respiratory: normal respiratory effort, lungs clear to auscultation Cardiovascular: RRR, no murmur, no edema Gastrointestinal (Abdomen): Inspection/Auscultation: normal bowel sounds and + abdominal surgical drain present; + abdomen abnormal to inspection (colostomy bag with stool in place, drain from Left abdomen) Percussion/Palpation: abdomen soft; abdomen nontender Psychiatric: A+Ox3, euthymic affect Results & Data Results & Data Vital Signs (Past 12 Hours) Vital Signs Temp Pulse Resp BP Pulse Ox O2 Del Method 08/02/23 15:38 36.8 C 87 18 159/89 H 100 Room Air 08/02/23 09:52 Room Air 08/02/23 07:34 36.5 C 78 18 156/92 H 100 Room Air Laboratory Results CBC, BMP, magnesium reviewed Diagnostic Findings CT abdomen/pelvis reviewed PG Care Time/CCT Total # of Minutes Spent Total Time Spent with Patient: Total time spent is greater than 50% in coordination of care (as documented) at patient's floor/unit and/or counseling patient: Coding Level of Care Code 61362 SUB INP/OBS CARE 235MIN Diagnoses Perforated abdominal viscus R19.8 Acute kidney injury N17.9 Acute blood loss anemia D62 Bilateral hearing loss, unspecified hearing loss type H91.93 Hearing loss type: unspecified Laterality: bilateral Encephalopathy G93.40 Ulcerative pancolitis with abscess K51.014 Digestive disease complication type: with abscess Ulcerative colitis location: ulcerative pancolitis (4) Hard of hearing Hearing loss type: unspecified Laterality: bilateral Qualified Code(s): H91.93 - Unspecified hearing loss, bilateral (6) Ulcerative colitis Digestive disease complication type: with abscess Ulcerative colitis location: ulcerative pancolitis Qualified Code(s): K51.014 - Ulcerative (chronic) pancolitis with abscess
[2023-08-02] MEDS: THIAMINE HCL 500 MG in SODIUM CHLORIDE 0.9% 50 ML IV SCH (20:02)
[2023-08-02] MEDS: FLUCONAZOLE 200 MG/100 ML BAG IV SCH (20:19)
[2023-08-02] MEDS: FAMOTIDINE 20 MG in SYRINGE 3 ML IV SCH (20:19)
[2023-08-02] MEDS: MIRTAZAPINE TAB 15 MG TAB PO SCH (20:25)
[2023-08-03] MEDS: SODIUM BICARBONATE 8.4% 75 MEQ in D5W AND 1/2NSS 1,000 ML IV SCH ×2 (01:30→12:32)
[2023-08-03] MEDS: THIAMINE HCL 500 MG in SODIUM CHLORIDE 0.9% 50 ML IV SCH ×3 (03:37→18:27)
[2023-08-03] MEDS: CEFEPIME 1,000 MG in SYRINGE 0 ML IV SCH ×2 (05:25→18:27)
[2023-08-03] MEDS: metroNIDAZOLE 500 MG/100 ML BAG IV SCH ×3 (05:25→21:14)
[2023-08-03 06:48] LABS: Basophils # (auto) 0.09 K/uL (0.00-0.20); Basophils % (auto) 1.2 %; Eosinophils # (auto) 0.24 K/uL (0.00-0.50); Eosinophils % (auto) 3.3 %; Hemoglobin 8.6 g/dl (14.0-18.0); Immature Granulocytes # (auto) 0.02 K/uL (0.01-0.20); Immature Granulocytes % (auto) 0.3 %; Lymphocytes # (auto) 1.01 K/uL (1.20-3.40); Mean Corpuscular Hemoglobin 28.4 pg (25.0-34.0); Mean Corpuscular Hgb Conc 31.9 g/dL (32.0-36.0); Mean Corpuscular Volume 89.1 fL (80.0-100.0); Mean Platelet Volume 9.3 fL (9.4-12.4); Monocytes # (auto) 0.68 K/uL (0.11-0.59); Monocytes % (auto) 9.4 %; Neutrophils % (auto) 71.8 %; Platelet Count 405 K/uL (130-400); RDW Coefficient of Variation 17.5 % (11.5-14.5); RDW Standard Deviation 57.1 fL (36.4-46.3); Red Blood Count 3.03 M/uL (4.70-6.10); White Blood Count 7.24 K/ul (4.8-10.8)
[2023-08-03 07:49] LABS: Bilirubin,Total 0.3 mg/dl (0.2-1.0); Calcium 7.9 mg/dl (8.6-10.3); Potassium 3.8 mmol/L (3.5-5.1)
[2023-08-03 07:55] LABS: Albumin Globulin Ratio 0.7 (0.9-2); BUN Creatinine Ratio 7.2 (10-20); Creatinine Clr Calc Pharmacy 16.3 ml/min; Est GFR (African American) 19.8 ml/min; Est GFR (Non-African American) 17.1 ml/min; Phosphorus 3.3 mg/dl (2.5-4.9)
[2023-08-03] MEDS: HEPARIN SOD 5,000 UNIT/0.5 ML VIAL SQ SCH ×2 (08:19→20:09)
[2023-08-03] MEDS: FAMOTIDINE 20 MG in SYRINGE 3 ML IV SCH ×2 (09:39→20:03)
[2023-08-03] MEDS ORDERED: PROMETHAZINE HCL 25 MG TAB PO PRN (09:42)
--- NOTE | 2023-08-03 09:45 | Gastrointestinal Consultation ---
Date of Consultation August 03, 2023 Assessment & Plan (1) Nausea and vomiting: (2) Ileostomy in place: (3) S/P colon resection: (4) Ulcerative colitis: (5) SIRS with acute organ dysfunction due to infectious process: Plan Diff dx: medication vs azotemia vs infection vs other. No s/sx of GIB. 1. Recommend initiation of Pantoprazole 40 mg BID. 2. Continue Pepcid 20 mg BID. 3. Add Phenergan 25 mg every 6 hours as needed for nausea. 4. Check stool for H pylori. 5. Continue supportive care per primary team. Thank you for allowing us to participate in the care of this patient. If you have any questions or concerns, please do not hesitate to contact us. Supervising Physician Co-Signing Physician Notes Agree with DORENE Paulino as above Abd: Soft, NT, ND, +BS Continue current therapy and supportive care. Ensure he is on BID PPI Recommend Antiemetic use as needed Check H. pylori stool Ag No plans for EGD at this time Discussed case with Dr. Reyes. History of Present Illness Reason for Consultation: N/V Requesting Physician: Dr. Reyes Attending Physician: Iris Reyes MD History of Present Illness Patient is a 53 y.o. male with a history of ulcerative pancolitis s/p subtotal colectomy with ileostomy due to perforation with pneumoperitoneum and abscess formation/peritonitis and subsequent placement of wound vac admitted wtih persistent intraabdominal abscess. He is being followed by ID and placed on broad spectrum antibiotics. GI has been consulted in regard to nausea with vomiting of PO and medications. He states he had one episode of emesis yesterday that was liquid mixed with undigested food contents. Denies any nausea at present. No abdominal pain. No bloating. No blood or melena in ostomy bag. Has been receiving Pepcid 20 mg BID. No antiemetics. Labs reviewed. Creatinine today was 3.77. H&H 8.6/27.0. MCV 89.1. Allergies Allergy/AdvReac Type Severity Reaction Status Date / Time No Known Allergies Allergy Verified 06/14/23 10:21 Home Medications Medication Instructions Recorded Confirmed Type mesalamine 4 gram/60 mL enema 4 g (60 mL) ID HS 1 month #1,800 mL 06/22/23 06/28/23 Rx mesalamine 800 mg tablet,delayed 1,600 mg (2 x 800 mg) PO TID 1 06/22/23 06/28/23 Rx release month #180 tabs prednisone 20 mg tablet 40 mg (2 x 20 mg) PO DAILY 1 month 06/22/23 06/28/23 Rx #60 tabs Patient History Medical History Ileostomy in place Abnormal colonoscopy Hard of hearing Ulcerative colitis Encounter for pre-operative examination Surgical History S/P colon resection Social History Smoking Status: Unknown if ever smoked Tobacco Type: Cigarettes Hx Alcohol Use: No Hx Substance Use: No Preferred Language: Nigerian Communication Ability: Effective Crew Leader Required: No Beliefs That Will Affect Care: None Current Living Situation: Other Current Living Situation Comment: [facility] Feels Safe at Home: Yes Assistive Devices: Hearing Aid - Left and Hearing Aid - Right Review of Systems Constitutional: no fever and no chills Respiratory: no cough and no dyspnea Cardiovascular: no chest pain and no palpitations Gastrointestinal: as per Subjective / HPI Musculoskeletal: no swelling Physical Exam Constitutional: WD/WN, vitals as above Eyes: EOM intact bilaterally Neck: normal visual inspection Respiratory: normal respiratory effort, lungs clear to auscultation Cardiovascular: Rate/Rhythm: regular rate and regular rhythm Heart Sounds: no murmur Gastrointestinal (Abdomen): Inspection/Auscultation: normal bowel sounds, + abdominal surgical scar and + abdominal surgical drain present Percussion/Palpation: abdomen soft; abdomen nontender, no guarding and abdomen not rigid Musculoskeletal: Extremities: extremities normal to inspection Skin: no rashes, warm and dry Psychiatric: A+Ox3, euthymic affect Results & Data Vital Signs (Past 12 Hours) Vital Signs Temp Pulse Resp BP Pulse Ox O2 Del Method 08/03/23 07:13 36.3 C L 96 H 18 159/99 H 100 Room Air Diagnostic Findings Laboratory Results WBC 7.24 K/ul (4.8-10.8) 08/03/23 06:06 RBC 3.03 M/uL (4.70-6.10) L 08/03/23 06:06 Hgb 8.6 g/dl (14.0-18.0) L 08/03/23 06:06 Hct 27.0 % (42.0-52.0) L 08/03/23 06:06 MCV 89.1 fL (80.0-100.0) 08/03/23 06:06 MCH 28.4 pg (25.0-34.0) 08/03/23 06:06 MCHC 31.9 g/dL (32.0-36.0) L 08/03/23 06:06 RDW Std Deviation 57.1 fL (36.4-46.3) H 08/03/23 06:06 RDW Coeff of Ashley 17.5 % (11.5-14.5) H 08/03/23 06:06 Plt Count 405 K/uL (130-400) H 08/03/23 06:06 MPV 9.3 fL (9.4-12.4) L 08/03/23 06:06 Immature Gran % (Auto) 0.3 % 08/03/23 06:06 Neut % (Auto) 71.8 % 08/03/23 06:06 Lymph % (Auto) 14.0 % 08/03/23 06:06 Bennett % (Auto) 9.4 % 08/03/23 06:06 Eos % (Auto) 3.3 % 08/03/23 06:06 Baso % (Auto) 1.2 % 08/03/23 06:06 Neut # (Auto) 5.20 K/uL (1.40-6.50) 08/03/23 06:06 Lymph # (Auto) 1.01 K/uL (1.20-3.40) L 08/03/23 06:06 Bennett # (Auto) 0.68 K/uL (0.11-0.59) H 08/03/23 06:06 Eos # (Auto) 0.24 K/uL (0.00-0.50) 08/03/23 06:06 Baso # (Auto) 0.09 K/uL (0.00-0.20) 08/03/23 06:06 Immature Gran # (Auto) 0.02 K/uL (0.01-0.20) 08/03/23 06:06 Absolute Nucleated RBC 0.02 K/uL (0.00-0.12) 07/05/23 09:37 Nucleated RBC % (auto) 0.1 % 07/05/23 09:37 Toxic Granulation 1+ 07/01/23 04:16 Toxic Vacuolation 1+ 06/30/23 10:33 Dohle Bodies 1+ 07/01/23 04:16 RBC Morphology Unremarkable 07/30/23 07:47 Polychromasia 1+ 07/03/23 04:26 Poikilocytosis Present 06/30/23 10:33 Echinocytes 1+ 07/01/23 04:16 Sodium 143 mmol/L (136-145) 08/03/23 06:06 Potassium 3.8 mmol/L (3.5-5.1) 08/03/23 06:06 Chloride 113 mmol/L (98-107) H 08/03/23 06:06 Carbon Dioxide 21 mmol/L (21-32) 08/03/23 06:06 Anion Gap 9 (3-11) 08/03/23 06:06 BUN 27 mg/dl (6-23) H 08/03/23 06:06 Creatinine 3.77 mg/dl (0.6-1.4) H 08/03/23 06:06 Est Cr Clr Drug Dosing 16.3 ml/min 08/03/23 06:06 Est GFR ( Amer) 19.8 ml/min 08/03/23 06:06 Est GFR (Non-Af Amer) 17.1 ml/min 08/03/23 06:06 BUN/Creatinine Ratio 7.2 (10-20) L 08/03/23 06:06 Glucose 108 mg/dl (70-99(Fasting)) H 08/03/23 06:06 POC Glucose 154 mg/dl (70-99) H 07/06/23 23:56 Lactate 1.8 mmol/L (0.4-2.0) 06/30/23 11:03 Calcium 7.9 mg/dl (8.6-10.3) L 08/03/23 06:06 Ionized Calcium 0.99 mmol/L (1.12-1.32) L 06/28/23 20:55 Phosphorus 3.3 mg/dl (2.5-4.9) 08/03/23 06:06 Magnesium 2.0 mg/dl (1.7-2.4) 08/03/23 06:06 Iron 58 mcg/dl (35-175) 07/30/23 07:47 TIBC 127 mcg/dl (250-450) L 07/30/23 07:47 Unsaturated IBC 69 mcg/dl (155-355) L 07/30/23 07:47 Transferrin % Sat 46 % (20-50) 07/30/23 07:47 Ferritin 675.7 ng/ml (8-388) H 07/30/23 07:47 Total Bilirubin 0.3 mg/dl (0.2-1.0) 08/03/23 06:06 Direct Bilirubin 0.1 mg/dl (0-0.2) 07/16/23 05:33 AST 13 U/L (13-39) 08/03/23 06:06 ALT 10 U/L (7-52) 08/03/23 06:06 Alkaline Phosphatase 145 U/L (34-104) H 08/03/23 06:06 Ammonia 16.0 umol/L (18-72) L 07/11/23 07:17 Total Creatine Kinase 13 U/L (30-223) L 08/03/23 06:06 C-Reactive Protein 8.97 mg/dl (0-0.5) H 07/17/23 05:40 Total Protein 5.0 gm/dl (6.0-8.3) L 08/03/23 06:06 Albumin 2.0 gm/dl (3.4-5.0) L 08/03/23 06:06 Globulin 3.0 gm/dl (2.5-4.0) 08/03/23 06:06 Albumin/Globulin Ratio 0.7 (0.9-2) L 08/03/23 06:06 Triglycerides 128 mg/dl (0-150) 07/01/23 04:16 Lipase 5 U/L (11-82) L 06/28/23 10:16 Vitamin B12 757 pg/ml (180-914) 07/30/23 07:47 Folate 14.30 ng/ml (>5.38) 07/30/23 07:47 Procalcitonin 0.30 ng/ml (0-0.5) 07/17/23 05:40 TSH 5.923 uIu/ml (0.300-4.500) H 07/30/23 07:47 Free T4 0.43 ng/dl (0.61-1.60) L 07/30/23 07:47 Cortisol AM Sample 24.13 mcg/dl (6.2-22.6) H 07/11/23 07:17 Urine Color Yellow 08/02/23 17:58 Urine Appearance Clear (Clear) 08/02/23 17:58 Urine pH 5.5 (4.5-7.5) 08/02/23 17:58 Ur Specific Conrad 1.011 (1.000-1.030) 08/02/23 17:58 Urine Protein 1+ (Negative) H 08/02/23 17:58 Urine Glucose (UA) Negative (Negative) 08/02/23 17:58 Urine Ketones Trace (Negative) H 08/02/23 17:58 Urine Blood Trace (Negative) H 08/02/23 17:58 Urine Nitrite Positive (Negative) A 08/02/23 17:58 Urine Bilirubin Negative (Negative) 08/02/23 17:58 Urine Urobilinogen Negative (Negative) 08/02/23 17:58 Ur Leukocyte Esterase Negative (Negative) 08/02/23 17:58 Urine WBC (Auto) 1-5 /hpf (0-5) 08/02/23 17:58 Urine RBC (Auto) 5-10 /hpf (0-4) H 08/02/23 17:58 U Hyaline Cast (Auto) 1-5 /lpf (0-5) 08/02/23 17:58 U Epithel Cells (Auto) 5-10 /lpf (0-5) H 08/02/23 17:58 Urine Bacteria (Auto) Negative (Negative) 08/02/23 17:58 Ur Renal Epithelial Cell 0-5 /lpf (0-5) 06/28/23 10:16 Amorphous Sediment Present (None Prsent) A 07/27/23 11:05 Urine Mucus Present (None Prsent) A 06/28/23 10:16 Urine Yeast Not Reportable 07/27/23 11:05 Urine Total Volume 500 mL 07/29/23 10:30 Ur Total Protein 24 Hr 847.5 mg/24 Hr (0-149.1) H 07/29/23 10:30 Urine Total Protein 169.5 mg/dl 07/29/23 10:30 Nasal Screen MRSA (PCR) Negative (Negative) 06/28/23 20:06 Complement C3 88 mg/dL (82-185) 07/28/23 09:50 Complement C4 27 mg/dL (15-53) 07/28/23 09:50 Blood Type A Negative 07/01/23 15:07 Antibody Screen NEGATIVE 07/01/23 15:07 Crossmatch See Detail 07/01/23 15:07 Impressions Chest X-Ray 07/01/23 10:36 SINGLE VIEW CHEST CLINICAL HISTORY: PICC placement. FINDINGS: An AP, portable, upright chest radiograph is correlated with chest CT dated 06/17/2023. An enteric tube has been placed. The tip projects below the diaphragm over the proximal stomach. A right-sided PICC line has been placed. The tip projects over the cavoatrial junction. The heart is top normal for projection. There is prominence of the pulmonary vasculature. There are small pleural effusions with dependent consolidation. No pneumothorax is seen. The bony thorax is grossly intact. Pneumoperitoneum is seen below the right hemidiaphragm. Skin clips are noted in the abdominal midline. IMPRESSION: 1. An enteric tube and a right-sided PICC line have been placed as above. 2. Pneumoperitoneum is seen below the right hemidiaphragm. 3. There is prominence of the pulmonary vasculature. Correlate clinically for evidence of fluid overload/congestive change. 4. Small pleural effusions with dependent consolidation. 5. The left basilar pulmonary lesion seen on the recent abdominal CT is not appreciated on x-ray. ACT 112: Negative or not required by law. Electronically signed by: Hu Suarez M.D. 07/01/2023 10:[address] 07/10/23 14:01 CT head/brain wo con CLINICAL HISTORY: 53 years-old Male with confusion. Acutely altered mental status TECHNIQUE: Multiple axial CT images of the head were obtained without contrast. A dose lowering technique was utilized adhering to the principles of ALARA. COMPARISON: None. FINDINGS: No acute intracranial hemorrhage, midline shift, intracranial mass, hydrocephalus, territorial ischemia or abnormal extra-axial collection. The calvarium is intact. The paranasal sinuses, mastoid air cells, and middle ear cavities are clear. IMPRESSION: No acute intracranial abnormality. ACT 112: Negative or not required by law. The above report was generated using voice recognition software. It may contain grammatical, syntax or spelling errors. Electronically signed by: Abdi Hirsch M.D. 07/10/2023 4:53 PM Drainage Catheter Insertion 07/23/23 11:31 CT-guided left upper quadrant abscess drain exchange INDICATION: Dislodged/kinked left upper quadrant abscess drain with residual abscess collection PROCEDURE: Procedure and risks were explained. Informed consent was obtained. A final timeout was completed. The patient was placed supine on the CT exam table. The existing left upper quadrant drain and an abdomen was prepped and draped in sterile fashion. 1% lidocaine was utilized for skin anesthesia. Utilizing CT guidance, a 0.035 Amplatz wire was introduced through the existing [address] imaging demonstrated adequate wire position. A new 10 Mohawk locking pigtail catheter was advanced over the wire and secured to the skin with 2-0 silk. The pigtail catheter was flushed multiple times and placed to suction bag drainage. The patient tolerated the procedure well. Postprocedure CT imaging demonstrates adequate pigtail position. Vital signs will be monitored postprocedure. IMPRESSION: Replacement of the left upper quadrant abscess drain as detailed above. Performed, dictated, and signed by Star Waller PA-C; to be co-signed by Dr. Sudhakar Ambrose. Electronically signed by: Sudhakar Ambrose M.D. 07/23/2023 9:48 PM Renal Ultrasound 07/27/23 07:36 US renal/blad retro comp CLINICAL HISTORY: acute kidney failure eval obstruction TECHNIQUE: Multiple sonographic real-time images of the kidneys and bladder were obtained. COMPARISON: Comparison is made to CT abdomen pelvis 07/19/2023 FINDINGS: The right kidney measures 10.8 cm in length, and the left kidney measures 11.6 cm in length. The right renal cortex is diffusely echogenic in appearance with diffuse cortical thinning. No hydronephrosis is identified. No renal lesion is identified. The left renal cortex is diffusely echogenic in appearance, with diffuse cortical thinning. No hydronephrosis is identified. No renal lesion is identified. Bladder wall is thickened. There is debris noted in the bladder. No large intraluminal mass is seen. IMPRESSION: 1. Echogenic appearance of the bilateral kidneys which may be present in medical renal disease. 2. Debris in the bladder and thickened bladder wall, correlation with cystitis is recommended. ACT 112: Negative or not required by law. Electronically signed by: Sudhakar Ambrose M.D. 07/27/2023 8:59 AM KUB X-Ray 07/31/23 12:28 KUB CLINICAL HISTORY: Early satiety. Colostomy. FINDINGS: 2 AP supine abdominal radiographs are correlated with abdominal CT dated 07/19/2023. A percutaneous drain projects over the left upper quadrant. No bowel obstruction is seen. An ostomy projects over the right lower quadrant and suture material projects over the pelvis. No evidence of intraperitoneal free air is seen on these supine images. There are no abnormal abdominal calcifications. There is a left pleural effusion with left basilar consolidation. IMPRESSION: 1. Nonobstructed bowel gas pattern. 2. A surgical drain projects over the left upper quadrant. 3. Left pleural effusion with left basilar consolidation. Electronically signed by: Hu Suarez M.D. 07/31/2023 2:16 PM Abdomen/Pelvis CT 08/02/23 08:01 CT SCAN OF THE ABDOMEN AND PELVIS WITHOUT IV CONTRAST CLINICAL HISTORY: Follow-up abscesses. COMPARISON STUDY: Abdominal CT dated 07/19/2023. TECHNIQUE: Unenhanced CT scan of the abdomen and pelvis is performed from the lung bases to the proximal femora. Images are reviewed in the axial, sagittal, and coronal planes. IV contrast was not administered. Note that the examination was performed in significantly suboptimal fashion without oral and IV contrast. A dose lowering technique was utilized adhering to the principles of ALARA. CT DOSE: 387.83 mGy.cm FINDINGS: Lung bases: The heart is normal in size noting a small pericardial effusion. There is diminished attenuation of the cardiac blood pool as compared to the myocardium suggesting anemia. Emphysematous changes noted. There are moderate left and small right pleural effusions with dependent consolidation. Liver: The unenhanced liver is normal in size, contour, and attenuation. There is no intrahepatic biliary ductal dilatation. Gallbladder: Distended but otherwise normal in appearance. Spleen: Normal in size and attenuation. An 11 mm hypodensity in the anterior spleen is unchanged. Pancreas: The unenhanced pancreas is normal in size. Scattered parenchymal calcifications suggest chronic pancreatitis. Adrenal glands: Unremarkable. Kidneys: The unenhanced kidneys are normal in size and without hydronephrosis. No renal calculi are identified. There is no evidence of contour deforming mass lesion. Abdominal vasculature: The abdominal aorta is normal in course and caliber noting moderate atherosclerotic calcification. Bowel: There is postoperative change from subtotal colectomy. A Tisha pouch is noted in the pelvis. No bowel obstruction is seen. Peritoneum: There is a wound in the infraumbilical abdominal wall. Again seen are numerous intraperitoneal fluid collections. A thick-walled gas and fluid containing crescentic collection in the left upper quadrant extending from the left hemidiaphragm to below the spleen has decreased in size from previous, measuring approximately 9 x 9 x 7 cm as seen on axial image #704 This contains a percutaneous drainage catheter. A small multiloculated fluid collection along the gastric fundus has also decreased in size from previous. The residual collection is not well visualized without IV contrast, likely measuring at least 3 cm as seen on image #57. A fluid collection below the gallbladder has also decreased in size. This measures up to 2.5 cm seen on image #144. A thick-walled gas and fluid containing collection in the pelvis above the sigmoid has decreased in size from previous. This measures approximately 2.5 x 1.5 x 5 cm. Lymphadenopathy: None. Pelvic viscera: The bladder is distended and contains intraluminal gas. The prostate and seminal vesicles are normal as imaged. Skeletal structures: No lytic or blastic lesions are seen. Soft tissues: There is body wall edema. IMPRESSION: 1. Significantly suboptimal examination without oral and IV contrast. 2. There are numerous residual intra-abdominal fluid collections as detailed above which are typical for abscesses. These have significantly decreased in size as compared to 07/19/2023. 3. A surgical drain is present within the largest collection in the left upper quadrant around the spleen. 4. Small right and moderate left effusion with left basilar consolidation. These have increased in size to previous. 5. There is increasing body wall edema from previous. 6. Ventral abdominal wound with postsurgical change from subtotal colectomy and right lower quadrant ileostomy. 7. There is nonspecific gas within the bladder lumen. 8. Additional findings as above. ACT 112: Negative or not required by law. Electronically signed by: Hu Suarez M.D. 08/02/2023 12:04 PM PG Care Time/CCT Total # of Minutes Spent Total Time Spent with Patient: Total time spent is greater than 50% in coordination of care (as documented) at patient's floor/unit and/or counseling patient: Coding Level of Care Code 74985 IN/OBS CONSULT LVL 4,60M Diagnoses Nausea and vomiting R11.[address] Z93.2 S/P colon resection Z90.49 Ulcerative pancolitis with abscess K51.014 Digestive disease complication type: with abscess Ulcerative colitis location: ulcerative pancolitis SIRS with acute organ dysfunction due to infectious process A41.9; R65.20 (4) Ulcerative colitis Digestive disease complication type: with abscess Ulcerative colitis location: ulcerative pancolitis Qualified Code(s): K51.014 - Ulcerative (chronic) pancolitis with abscess
--- NOTE | 2023-08-03 10:33 | Nephrology Progress Note ---
Date of Service August 03, 2023 Assessment & Plan (1) Acute kidney injury: Plan: Baseline creatinine less than 1 mg/dL (as recently as Jul 21). Non-oliguric. Creatinine stable at 3.7 mg/dL. Clinical presentation consistent with ATN +/- contrast-induced nephropathy. Volume status remains euvolemic but PO intake very poor. IV fluids have been continued. IV HCO3 in dextrose infusing. Continue D5 1/2NS + 75 mEq HCO3 as Rx. Consider parental nutrition if dietary intake does not improve in the next couple of days. Electrolytes are acceptable. 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 Potential future indications have been reviewed. Continue to document strict I/O's. Repeat metabolic profile tomorrow AM. Medications appropriately dosed for kidney function. Monitor CK weekly on daptomycin. (2) Perforated abdominal viscus: Plan: s/p Ex lap subtotal colectomy and ileostomy formation June 28. Presented with ulcerative pancolitis and perforated viscus with intraabdominal infection. Pseudomonas, staph aureus, and enterococcus faecium as well as C albicans. Multiple abdominal fluid collections/abscesses. Remains on cefepime, daptomycin, metronidazole, and fluconazole. Tolerating therapy well. ID following. Imaging updated. IR to review. (3) Acute blood loss anemia: Plan: Hemoglobin stable. No need for JARRETT therapy. Admission and Anticipated Discharge Date Admission Date: June 28, 2023 Subjective No acute events overnight. No fevers or chills. Nausea and anorexia persist. Appetite remains very poor. Medications have been converted to IV. Denies fluid retention or edema. No shortness of breath. No fevers or chills. Review of Systems Review of Systems: All systems reviewed & are unremarkable except as noted in HPI & below Physical Exam Constitutional: well developed, + thin and + frail appearing; no acute distress Eyes: + anicteric sclerae; no corneal abnormal ity ENMT: Mouth: no oral mucosal abnormality and oral mucous membranes not dry Neck: normal visual inspection and trachea midline Respiratory: normal respiratory effort Auscultation: lungs clear to auscultation bilaterally Cardiovascular: Rate/Rhythm: regular rate Heart Sounds: normal S1 and normal S2 Extremities: no edema Musculoskeletal: Extremities: no cyanosis and no clubbing Skin: normal turgor; no jaundice Neurologic: Motor/Sensory: no tremor and no asterixis Psychiatric: Orientation: alert and oriented x 3 Results & Data Vital Signs (Past 12 Hours) Vital Signs Temp Pulse Resp BP Pulse Ox O2 Del Method 08/03/23 09:53 Room Air 08/03/23 07:13 36.3 C L 96 H 18 159/99 H 100 Room Air Laboratory Results Laboratory Results - last 24 hr 08/02/23 08/03/23 17:58 06:06 WBC 7.24 RBC 3.03 L Hgb 8.6 L Hct 27.0 L MCV 89.1 MCH 28.4 MCHC 31.9 L RDW Std Deviation 57.1 H RDW Coeff of Ashley 17.5 H Plt Count 405 H MPV 9.3 L Immature Gran % (Auto) 0.3 Neut % (Auto) 71.8 Lymph % (Auto) 14.0 [place] % (Auto) 9.4 Eos % (Auto) 3.3 Baso % (Auto) 1.2 Neut # (Auto) 5.20 Lymph # (Auto) 1.01 L [place] # (Auto) 0.68 H Eos # (Auto) 0.24 Baso # (Auto) 0.09 Immature Gran # (Auto) 0.02 Sodium 143 Potassium 3.8 Chloride 113 H Carbon Dioxide 21 Anion Gap 9 BUN 27 H Creatinine 3.77 H Est Cr Clr Drug Dosing 16.3 Est GFR ( Amer) 19.8 Est GFR (Non-Af Amer) 17.1 BUN/Creatinine Ratio 7.2 L Glucose 108 H Calcium 7.9 L Phosphorus 3.3 Magnesium 2.0 Total Bilirubin 0.3 AST 13 ALT 10 Alkaline Phosphatase 145 H Total Creatine Kinase 13 L Total Protein 5.0 L Albumin 2.0 L Globulin 3.0 Albumin/Globulin Ratio 0.7 L Urine Color Yellow Urine Appearance Clear Urine pH 5.5 Ur Specific Lee 1.011 Urine Protein 1+ H Urine Glucose (UA) Negative Urine Ketones Trace H Urine Blood Trace H Urine Nitrite Positive A Urine Bilirubin Negative Urine Urobilinogen Negative Ur Leukocyte Esterase Negative Urine WBC (Auto) 1-5 Urine RBC (Auto) 5-10 H U Hyaline Cast (Auto) 1-5 U Epithel Cells (Auto) 5-10 H Urine Bacteria (Auto) Negative PG Care Time/CCT Total # of Minutes Spent Total Time Spent with Patient: Total time spent is greater than 50% in coordination of care (as documented) at patient's floor/unit and/or counseling patient: Coding Level of Care Code 82013 SUB INP/OBS CARE 3/50MIN Diagnoses Acute kidney injury N17.9 Perforated abdominal viscus R19.8 Acute blood loss anemia D62
[2023-08-03] MEDS: PANTOprazole 40 MG in SYRINGE 0 ML IV SCH ×2 (11:03→20:03)
--- NOTE | 2023-08-03 15:15 | Hospitalist Progress Note ---
Date of Service August 03, 2023 Assessment & Plan (1) Perforated abdominal viscus: Plan: Patient with recent diagnosis of Ulcerative pancolitis, and had sessile polyp biopsied along with other biopsies on a colonoscopy during previous admission. Presented with free air, to OR 06/28/23 with subtotal colon resection with rectal stump remaining, and ileostomy. Three areas of perforation were identified, abscess and feculent material seen. Pseudomonas, Staphylococcus aureus, and Enterococcus faecium as well as Mariely albicans isolated. RUQ drain has been removed. IR drain remains and continues to drain in LUQ manipulated on 07/23/[address] scan 07/19 shows persistent fluid collections consistent with abscess 07/23/2023 shows a leukocytosis hence the drain manipulation Repeat abdominal CT on 08/02 with improving size and multiple abscesses but still 1 that is large 9 cm- discussed with IR about possible drainage and not possible as drain in larger pocket and loculated other pockets too small Wound vac remains in place over LLQ and being changed every 3 days Leukocytosis resolved, remains afebrile P.o. intake remains extremely poor-dietary following. SPeech saw and said no problems with swallowing GI consult 08/03--> recommended no EGD, start PPI bid, check H. pylori, start phenergan prn Attempted barium swallow to assess for obstruction given frequent vomiting--> he could not drink barium KUB 07/31 no obstruction ECG no prolonged QT while on diflucan Appreciate infectious disease recommendations -continue daptomycin, cefepime, renally adjusted fluconazole x 4 more weeks through 08/30/23 w/ reevaluation for likely extension with CT abd/pel prior to that around 08/16-08/23 to see if needs further IR drainage or drain manipulation -continue metronidazole 500mg bid through 08/10/23 -started Remeron 7.5mg po hs for appetite stimulant and in case depression causing poor appetite -Check CK once weekly (next 08/03) while on daptomycin, follow CBC, BMP -Plan to start TPN given severe malnutrition-check TGs, prealbumin, phos, CMP -Started IV thiamine high-dose to prevent Wernicke encephalopathy in case of deficiency given severe malnutrition while on D5 (2) Acute kidney injury: Plan: First noted 07/25-maybe atn due to poor po intake, ain from meds not likely as no WBCs on UA, could be OSWALDO from CT scans and ATN from infection Assistant Signal Maintainer peaked at 3.77, remains stable today, BUN was never significantly elevated Not volume overloaded, K+ ok, acidosis worsened-nephrology started bicarbonate drip-continues Nonoliguric, no indication for HD today US suggest debris in bladder, thickened bladder wall but no obstruction, but shows MRD UA with protein and blood, no casts, nephrology consultation 24-hour urine with 850mg protein urine culture from 07/27 negative for infection Complements sent by nephrology negative -Continue HCO3 gtt -Follow BMP -Appreciate nephrology consultation -Follow urine output (3) Acute blood loss anemia: Plan: Postoperatively. No bleeding noted from anywhere stable hgb today at 8-9 B12, folate, iron studies normal TSH mildly elevated and free T4 mildly low-follow likely from chronic disease follow CBC (4) Hard of hearing: Plan: Supportive care, wears hearing device (5) Encephalopathy: Plan: Acute encephalopathy, probably metabolic. Now resolved. Continue supportive care. Head CT scan negative. (6) Ulcerative colitis: Plan: Patient with ulcerative colitis diagnosed by colonoscopy in 06/2023 Now status post subtotal colectomy with only rectal stump remaining No treatment needed at this point but will need continued surveillance for colorectal CA of the rectal stump Will need follow-up with GI as an outpatient Plan Dispo-continued stay Extensive discussion with the [facility] system by previous hospitalist-current plan in place to be the patient returns to the usp when medically stable Patient will then have supplies to continue antibiotic care at [place] but with eventual transition to [facility] usp system which is a more robust medical facility Admission and Anticipated Discharge Date Admission Date: June 28, 2023 Subjective Pt reports ongoing nausea with eating anything. Has abd pain no worse than before. Is able to drink some. COuld not tolerate attempt at barium swallow. I discussed his care with GI Physical Exam Constitutional: + underweight Respiratory: normal respiratory effort, lungs clear to auscultation Cardiovascular: RRR, no murmur, no edema Gastrointestinal (Abdomen): Inspection/Auscultation: normal bowel sounds and + abdominal surgical drain present; + abdomen abnormal to inspection (colostomy bag with stool in place, drain from Left abdomen) Percussion/Palpation: abdo men soft; abdomen nontender drain with purulent fluid Psychiatric: Orientation: alert and oriented x 3 Affect: + flat affect Results & Data Results & Data Vital Signs (Past 12 Hours) Vital Signs Temp Pulse Resp BP Pulse Ox O2 Del Method 08/03/23 09:53 Room Air 08/03/23 07:13 36.3 C L 96 H 18 159/99 H 100 Room Air Laboratory Results CBC, BMP, phos, mag, CK reviewed UA reviewed ECG Additional Comments: ECG reviewed with SR, short HI, normal QT,normal rate PG Care Time/CCT Total # of Minutes Spent Total Time Spent with Patient: Total time spent is greater than 50% in coordination of care (as documented) at patient's floor/unit and/or counseling patient: Coding Level of Care Code 92445 SUB INP/OBS CARE 3/50MIN Diagnoses Perforated abdominal viscus R19.8 Acute kidney injury N17.9 Acute blood loss anemia D62 Bilateral hearing loss, unspecified hearing loss type H91.93 Hearing loss type: unspecified Laterality: bilateral Encephalopathy G93.40 Ulcerative pancolitis with abscess K51.014 Digestive disease complication type: with abscess Ulcerative colitis location: ulcerative pancolitis (4) Hard of hearing Hearing loss type: unspecified Laterality: bilateral Qualified Code(s): H91.93 - Unspecified hearing loss, bilateral (6) Ulcerative colitis Digestive disease complication type: with abscess Ulcerative colitis location: ulcerative pancolitis Qualified Code(s): K51.014 - Ulcerative (chronic) pancolitis with abscess
--- NOTE | 2023-08-03 15:22 | Infectious Disease Progress Nt ---
Date of Service August 03, 2023 Assessment & Plan (1) Encephalopathy: (2) Sepsis: (3) S/P colon resection: (4) Pneumoperitoneum: (5) Ulcerative colitis: (6) Perforated abdominal viscus: (7) Intra-abdominal abscess: Plan Adama Deleon is a 53-year-old man, currently incarcerated, with history of recently diagnosed with ulcerative pancolitis, started on prednisone and mesalamine, who presented on 06/28 with abdominal pain and vomiting, found to have perforated viscus with pneumoperitoneum and secondary polymicrobial feculent peritonitis s/p ex-lap, subtotal colectomy, and ileostomy (06/28). He was found to have multiple areas of perforation w/in the cecum/transverse/ sigmoid colon with feculent peritonitis with multiple intraabdominal abscesses, abd fluid cx + Mariely albicans/dubliniensis, MSSA, PsA, treated with pip-tazo and caspofungin. Repeat CT A/P 07/05 with persistent collections, s/p IR drainage of LUQ collection on 07/06, cx +PsA and VRE, with abx changed to daptomycin, cefepime, fluconazole, and metronidazole. Most recent CT A/P on 08/02 showing improvement of collections however still with a large 9x9x7 cm collection. Leukocytosis overall improved, though increased to 21.1 on 07/23 at which time LUQ drain noted to be dislodged and was replaced by IR on 07/23. WBC has since normalized to 8 on 07/31. Mental status has improved as well. CT A/P 07/19 showed numerous large residual intraabdominal fluid collections, modestly decreased in size. Repeat CT A/P on 08/02 showing improvement of collections however still with a large 9x9x7 cm collection. IR has reevaluated after the 08/02 CT however given loculations and the current drain already being in the largest fluid collection, they feel that drainage is already being maximalized. Given the lack of source control, he will require a prolonged duration of antibiotics and would be preferable to continue the antibiotics IV. Will likely require several weeks of IV antibiotics with serial reimaging every 2-4 weeks and interval reassessment to evaluate for improvement. If collections persist, he should be reevaluated after each imaging study to see if source control can be optimized (e.g., IR drainage including new drain, upsizing, and repositioning). Will recommend to continue daptomycin, cefepime, and fluconazole for coverage of MSSA, PsA, VRE, and Mariely. Will write for another 4 weeks but the duration of this should be reassessed pending ID follow-up and serial reimaging. QTc of 440 on 08/03/23 after being on fluconazole. Please ensure close follow-up of renal function and ensure that antibiotics are appropriately renally dosed. If will be discharging, recommend weekly lab monitoring while on antibiotics (see below) and follow-up with outpatient ID. Please reengage ID if clinical worsening, new fevers, new culture data (such as from new drain placement). Will recommend only a 2-week total course of metronidazole at BID dosing given that anaerobes are unlikely to be the primary driving pathogen and given the concern for toxicities with long-term metronidazole use. ID Problem List: # Polymicrobial Feculent Peritonitis s/p ruptured viscous: MSSA, PsA, VRE, Mariely alb/dub # Multiple abdominal abscess s/p IR drain placement # Ulcerative Pancolitis # Leukocytosis Recommendations: - Continue antibiotics for at least another 4 weeks (08/03/23 08/30/23) with reevaluation and likely extension for antibiotics pending ID evaluation and reimaging: ---- daptomycin 600 mg IV Q48H (renally dosed) ---- cefepime 1000 mg IV Q12H (renally dosed) ---- fluconazole 200 mg PO daily (renally dosed) - Continue metronidazole 500 PO BID to complete a 2-week course (07/28/23- 08/10/23) then STOP - Closely follow renal function to ensure antibiotics are dosed appropriately - Lab monitoring while on abx: weekly CBC w/ diff, CMP, CPK - Repeat CT scan in ~2-3 weeks (between 08/16-08/23/23). If remaining fluid collections, please engage IR to determine whether any drain must be placed/upsized/repositioned - If will be discharging, recommend outpatient ID follow-up - Please reengage ID if clinical worsening, new fevers, new culture data (such as from new drain placement) Plan discussed with hospitalist. Thank you for letting ID participate in the care of this patient. ID will sign off at this time. If questions, please contact the [facility] call center at [phone]. Camilla Hart MD, MHS Infectious Diseases [facility] direct line: [phone] Admission and Anticipated Discharge Date Admission Date: June 28, 2023 Subjective Subsequent visit was provided via telemedicine using two-way real-time interactive telecommunication between the patient and the telemedicine provider. For the duration of the visit, the provider was performing the assessment from a different facility than the patient. This includesuse of bluetooth stethoscope forauscultationperformed by the telepresenter that the telemedicine provider can hear if described in the physical exam. Land Surveyor Manager contact information: Please call [facility] Call Center [phone]. (Phone Number For Physician Use Only) After establishing a telemedicine visit, patient was: Patient was verified with two unique identifiers, Patient/authorized rep acknowledged consent and understanding and Gave permission to continue telehealth session Time Spent with Patient: Subsequent => 35 min - Afebrile - WBC 7 - Continues to have abdominal pain and distension Physical Exam Physical Exam: Exam obtained with aid of in-person telepresenter. General: Chronically ill-appearing, no acute distress HEENT: Conjunctivae non-injected, sclerae anicteric, MMM, OP clear. Respirations nonlabored. Abd: Slightly firm, moderately distended and mildly tender to palpation. L-sided vanc in place with scant output. LUQ drain with orange-brown output. Ostomy c/d/i Back: No tenderness to palpation along spine Ext: Warm and well-perfused, no edema. No joint warmth or effusions noted. Skin: No rashes or lesions. Neuro: Alert & interactive. Grossly non-focal. Psych: Pleasant, appropriate. Results & Data Vital Signs (Past 12 Hours) Vital Signs Temp Pulse Resp BP Pulse Ox O2 Del Method 08/03/23 09:53 Room Air 08/03/23 07:13 36.3 C L 96 H 18 159/99 H 100 Room Air Diagnostic Findings Diagnostics: 08/02 CT A/P Peritoneum: There is a wound in the infraumbilical abdominal wall. Again seen are numerous intraperitoneal fluid collections. A thick-walled gas and fluid containing crescentic collection in the left upper quadrant extending from the left hemidiaphragm to below the spleen has decreased in size from previous, measuring approximately 9 x 9 x 7 cm as seen on axial image #704 This contains a percutaneous drainage catheter. A small multiloculated fluid collection along the gastric fundus has also decreased in size from previous. The residual collection is not well visualized without IV contrast, likely measuring at least 3 cm as seen on image #57. A fluid collection below the gallbladder has also decreased in size. This measures up to 2.5 cm seen on image #144. A thick-walled gas and fluid containing collection in the pelvis above the sigmoid has decreased in size from previous. This measures approximately 2.5 x 1.5 x 5 cm. 1. Significantly suboptimal examination without oral and IV contrast. 2. There are numerous residual intra-abdominal fluid collections as detailed above which are typical for abscesses. These have significantly decreased in size as compared to 07/19/2023. 3. A surgical drain is present within the largest collection in the left upper quadrant around the spleen. 4. Small right and moderate left effusion with left basilar consolidation. These have increased in size to previous. 5. There is increasing body wall edema from previous. 6. Ventral abdominal wound with postsurgical change from subtotal colectomy and right lower quadrant ileostomy. 7. There is nonspecific gas within the bladder lumen. 8. Additional findings as above. 07/19 CT A/P 1. There are numerous large residual intra-abdominal fluid collections as above which are typical for abscesses. These have modestly decreased in size as compared to 07/10/2023. 2. A surgical drain is present within the largest collection in the left upper quadrant around the spleen. The surgical drain in the pelvis seen on 07/10/2023 has been removed. 3. Small to moderate left pleural effusion with left basilar consolidation. 4. Heterogeneous enhancement of both kidneys is nonspecific and can be seen with infection/pyelonephritis. Correlate with clinical findings/urinalysis. 5. Ventral abdominal wound with postsurgical change from subtotal colectomy and right lower quadrant ileostomy. 6. There is no bowel obstruction. 7. There is nonspecific gas within the bladder lumen. 8. Additional findings as above. Micro 07/27/23 UCx NG 07/08 UCx NG 07/06 Abd fluid cx: PsA #1, PsA #2 (dailey-sensitive), VRE (S dapto, OSVALDO 4) 06/28 Abd fluid cx: PsA, C albicans/dub, MSSA 06/28 BCx x2: NG Abx/Antifungals: Daptomycin (07/12 present) Fluconazole (07/14- present) Cefepime 06/28, 07/11-07/22, (07/28-present) metronidazole 06/28, 07/12- 07/22, (07/28-present) Prior Zosyn 06/28-07/09, 07/22 07/28 caspofungin 06/29-07/10 (5) Ulcerative colitis Digestive disease complication type: with abscess Ulcerative colitis location: ulcerative pancolitis Qualified Code(s): K51.014 - Ulcerative (chronic) pancolitis with abscess
[2023-08-03] MEDS ORDERED: PROMETHAZINE HCL 12.5 MG in SODIUM CHLORIDE 0.9% 50 ML IV PRN (15:31)
[2023-08-03] MEDS ORDERED: TPN/PPN CONSULT PHARMACY PRN (15:53)
[2023-08-03] MEDS: FLUCONAZOLE 200 MG/100 ML BAG IV SCH (20:02)
[2023-08-03] MEDS: oxyCODONE/ACETAMINOPHEN 5mg/325mg TAB PO PRN (20:11)
[2023-08-03] MEDS: MIRTAZAPINE TAB 15 MG TAB PO SCH (20:16)
[2023-08-03] MEDS ORDERED: PANTOprazole 40 MG TAB PO SCH (21:00)
[2023-08-03] MEDS ORDERED: Nursing to Pharmacy Communication SCH (21:45)
[2023-08-04] MEDS: SODIUM BICARBONATE 8.4% 75 MEQ in D5W AND 1/2NSS 1,000 ML IV SCH ×2 (01:18→19:48)
[2023-08-04] MEDS: THIAMINE HCL 500 MG in SODIUM CHLORIDE 0.9% 50 ML IV SCH ×3 (02:38→18:26)
[2023-08-04] MEDS: CEFEPIME 1,000 MG in SYRINGE 0 ML IV SCH ×2 (05:49→18:21)
[2023-08-04] MEDS: metroNIDAZOLE 500 MG/100 ML BAG IV SCH ×3 (05:49→23:02)
[2023-08-04] MEDS: HEPARIN SOD 5,000 UNIT/0.5 ML VIAL SQ SCH ×2 (08:05→20:32)
[2023-08-04 08:11] LABS: Basophils # (auto) 0.06 K/uL (0.00-0.20); Basophils % (auto) 0.9 %; Eosinophils # (auto) 0.16 K/uL (0.00-0.50); Eosinophils % (auto) 2.5 %; Hematocrit (blood only) 25.9 % (42.0-52.0); Hemoglobin 8.3 g/dl (14.0-18.0); Immature Granulocytes # (auto) 0.02 K/uL (0.01-0.20); Immature Granulocytes % (auto) 0.3 %; Lymphocytes # (auto) 0.95 K/uL (1.20-3.40); Lymphocytes % (auto) 14.9 %; Mean Corpuscular Hemoglobin 28.5 pg (25.0-34.0); Mean Platelet Volume 9.4 fL (9.4-12.4); Monocytes # (auto) 0.57 K/uL (0.11-0.59); Monocytes % (auto) 8.9 %; Neutrophils # (auto) 4.63 K/uL (1.40-6.50); Neutrophils % (auto) 72.5 %; Platelet Count 387 K/uL (130-400); RDW Coefficient of Variation 17.6 % (11.5-14.5); RDW Standard Deviation 57.1 fL (36.4-46.3); Red Blood Count 2.91 M/uL (4.70-6.10); White Blood Count 6.39 K/ul (4.8-10.8)
[2023-08-04 08:28] LABS: Albumin Globulin Ratio 0.7 (0.9-2); BUN Creatinine Ratio 6.2 (10-20); Bilirubin,Total 0.3 mg/dl (0.2-1.0); Calcium 7.6 mg/dl (8.6-10.3); Creatinine Clr Calc Pharmacy 15.9 ml/min; Est GFR (African American) 19.2 ml/min; Est GFR (Non-African American) 16.5 ml/min; Magnesium 1.8 mg/dl (1.7-2.4); Phosphorus 3.3 mg/dl (2.5-4.9); Potassium 3.6 mmol/L (3.5-5.1)
[2023-08-04] MEDS: FAMOTIDINE 20 MG in SYRINGE 3 ML IV SCH ×2 (08:58→20:35)
[2023-08-04] MEDS: PANTOprazole 40 MG in SYRINGE 0 ML IV SCH ×2 (08:59→20:35)
[2023-08-04 09:33] LABS: Prealbumin 18.3 mg/dl (20-40)
--- NOTE | 2023-08-04 10:42 | Nephrology Progress Note ---
Date of Service August 04, 2023 Assessment & Plan (1) Acute kidney injury: Plan: Baseline creatinine less than 1 mg/dL (as recently as Jul 21). Non-oliguric. Creatinine stable at ~3.8 mg/dL. Clinical presentation consistent with ATN +/- contrast-induced nephropathy. Volume status remains euvolemic but PO intake very poor. IV fluids have been continued. Parental nutrition to start today. IVF adjusted. Plan discussed with pharmacy. Fluid goal 2-2.5 L daily. Electrolytes are acceptable. There is no emergent indication for REGISTERED MEDICAL TRANSCRIPTIONIST. Potential future indications have been reviewed. Continue to document strict I/O's. Repeat metabolic profile tomorrow AM. Medications appropriately dosed for kidney function. Monitor CK weekly on daptomycin. (2) Perforated abdominal viscus: Plan: s/p Ex lap subtotal colectomy and ileostomy formation June 28. Presented with ulcerative pancolitis and perforated viscus with intraabdominal infection. Pseudomonas, staph aureus, and enterococcus faecium as well as C albicans. Multiple abdominal fluid collections/abscesses. Remains on cefepime, daptomycin, metronidazole, and fluconazole. Tolerating therapy well. ID following. I discussed the plan of care with GI this AM. (3) Acute blood loss anemia: Plan: Hemoglobin stable. No need for JARRETT therapy. Admission and Anticipated Discharge Date Admission Date: June 28, 2023 Subjective No acute events overnight. Anorexia persists. Continues to endorse generalized abdominal discomfort. No fevers or chills. No fluid retention or edema. Review of Systems Review of Systems: All systems reviewed & are unremarkable except as noted in HPI & below Physical Exam Constitutional: well developed, + thin and + frail appearing; no acute distress Eyes: + anicteric sclerae; no corneal abnormal ity ENMT: Mouth: no oral mucosal abnormality and oral mucous membranes not dry Neck: normal visual inspection and trachea midline Respiratory: normal respiratory effort Auscultation: lungs clear to auscultation bilaterally Cardiovascular: Rate/Rhythm: regular rate Heart Sounds: normal S1 and normal S2 Extremities: no edema Musculoskeletal: Extremities: no cyanosis and no clubbing Skin: normal turgor; no jaundice Neurologic: Motor/Sensory: no tremor and no asterixis Psychiatric: Orientation: alert and oriented x 3 Results & Data Vital Signs (Past 12 Hours) Vital Signs Temp Pulse Resp BP Pulse Ox O2 Del Method 08/04/23 10:29 Room Air 08/04/23 07:31 36.5 C 86 16 156/93 H 100 Room Air 08/03/23 23:02 Room Air Laboratory Results Laboratory Results - last 24 hr 08/03/23 08/04/23 12:15 07:49 WBC 6.39 RBC 2.91 L Hgb 8.3 L Hct 25.9 L MCV 89.0 MCH 28.5 MCHC 32.0 RDW Std Deviation 57.1 H RDW Coeff of Ashley 17.6 H Plt Count 387 MPV 9.4 Immature Gran % (Auto) 0.3 Neut % (Auto) 72.5 Lymph % (Auto) 14.9 [facility] % (Auto) 8.9 Eos % (Auto) 2.5 Baso % (Auto) 0.9 Neut # (Auto) 4.63 Lymph # (Auto) 0.[address] [facility] # (Auto) 0.57 Eos # (Auto) 0.16 Baso # (Auto) 0.06 Immature Gran # (Auto) 0.02 Sodium 143 Potassium 3.6 Chloride 112 H Carbon Dioxide 25 Anion Gap 6 BUN 24 H Creatinine 3.87 H Est Cr Clr Drug Dosing 15.9 Est GFR ( Amer) 19.2 Est GFR (Non-Af Amer) 16.5 BUN/Creatinine Ratio 6.2 L Glucose 120 H Calcium 7.6 L Phosphorus 3.3 Magnesium 1.8 Total Bilirubin 0.3 AST 15 ALT 9 Alkaline Phosphatase 143 H Total Protein 5.0 L Albumin 2.0 L Globulin 3.0 Albumin/Globulin Ratio 0.7 L Prealbumin 18.3 L Triglycerides 171 H Stool H. pylori Ag Pending PG Care Time/CCT Total # of Minutes Spent Total Time Spent with Patient: Total time spent is greater than 50% in coordination of care (as documented) at patient's floor/unit and/or counseling patient: Coding Level of Care Code 70607 SUB INP/OBS CARE 3/50MIN Diagnoses Acute kidney injury N17.9 Perforated abdominal viscus R19.8 Acute blood loss anemia D62
[2023-08-04] MEDS ORDERED: DEXTROSE 10% 1,000 ML IV PRN (10:53)
[2023-08-04] MEDS: DAPTOmycin 600 MG in SYRINGE 0 ML IV SCH (12:22)
[2023-08-04] MEDS ORDERED: CLINOLIPID 20% IV FAT EMULSION 250 ML IV SCH (16:00)
[2023-08-04] MEDS: [UNRECOGNIZED DRUG - OTHER] IV SCH (16:49)
[2023-08-04] MEDS: CENTRAL TPN IV SCH (16:49)
[2023-08-04] MEDS: SODIUM CHLORIDE 0.45 % 1,000 ML IV SCH (18:21)
[2023-08-04] MEDS: FLUCONAZOLE 200 MG/100 ML BAG IV SCH (20:35)
[2023-08-04] MEDS: MIRTAZAPINE TAB 15 MG TAB PO SCH (20:47)
[2023-08-04] MEDS ORDERED: STOP CLINOLIPID SCH (22:00)
--- NOTE | 2023-08-05 00:55 | Hospitalist Progress Note ---
Date of Service Late entry for progress note for August 04, 2023 Assessment & Plan (1) Perforated abdominal viscus: Plan: Patient with recent diagnosis of Ulcerative pancolitis, and had sessile polyp biopsied along with other biopsies on a colonoscopy during previous admission. Presented with free air, to OR 06/28/23 with subtotal colon resection with rectal stump remaining, and ileostomy. Three areas of perforation were identified, abscess and feculent material seen. Pseudomonas, Staphylococcus aureus, and Enterococcus faecium as well as Mariely albicans isolated. RUQ drain has been removed. IR drain remains and continues to drain in LUQ manipulated on 07/23/[address] scan 07/19 shows persistent fluid collections consistent with abscess 07/23/2023 shows a leukocytosis hence the drain manipulation Repeat abdominal CT on 08/02 with improving size and multiple abscesses but still one that is large 9 cm- discussed with IR about possible drainage and not possible as drain in larger pocket and loculated other pockets too small Wound vac remains in place over LLQ and being changed every 3 days Leukocytosis resolved, remains afebrile P.o. intake remains extremely poor-dietary following. SPeech saw and said no problems with swallowing--> prealbumin low, TGs mildly high, phos replete GI consult 08/03--> recommended no EGD, start PPI bid, check H. pylori, start phenergan prn Attempted barium swallow to assess for obstruction given frequent vomiting--> he could not drink barium KUB 07/31 no obstruction ECG no prolonged QT while on diflucan Appreciate infectious disease recommendations -continue daptomycin, cefepime, renally adjusted fluconazole x 4 more weeks through 08/30/23 w/ reevaluation for likely extension with CT abd/pel prior to that around 08/16-08/23 to see if needs further IR drainage or drain manipulation -continue metronidazole 500mg bid through 08/10/23 -started Remeron 7.5mg po hs for appetite stimulant and in case depression causing poor appetite -Check CK once weekly (next 08/10) while on daptomycin, follow CBC, BMP -started TPN 08/04 given severe malnutrition -gave 6 doses of IV thiamine high-dose to prevent Wernicke encephalopathy in case of deficiency given severe malnutrition while on D5-revert back to 100mg daily (2) Acute kidney injury: Plan: First noted 07/25-maybe atn due to poor po intake, ain from meds not likely as no WBCs on UA, could be OSWALDO from CT scans and ATN from infection Bed Bug Exterminator continues to go up to 3.8, BUN was never significantly elevated Not volume overloaded, K+ ok, acidosis now improved with bicab gtt which is now stopped Nonoliguric, no indication for HD today US suggest debris in bladder, thickened bladder wall but no obstruction, but shows MRD UA with protein and blood, no casts, nephrology consultation 24-hour urine with 850mg protein urine culture from 07/27 negative for infection Complements sent by nephrology negative -continue 09/14 NSS+ K -Follow BMP -Appreciate nephrology consultation -Follow urine output (3) Acute blood loss anemia: Plan: Postoperatively. No bleeding noted from anywhere stable hgb today at 8-9 B12, folate, iron studies normal TSH mildly elevated and free T4 mildly low-follow likely from chronic disease follow CBC (4) Hard of hearing: Plan: Supportive care, wears hearing device (5) Encephalopathy: Plan: Acute encephalopathy, probably metabolic. Now resolved. Continue supportive care. Head CT scan negative. (6) Ulcerative colitis: Plan: Patient with ulcerative colitis diagnosed by colonoscopy in 06/2023 Now status post subtotal colectomy with only rectal stump remaining No treatment needed at this point but will need continued surveillance for colorectal CA of the rectal stump Will need follow-up with GI as an outpatient Plan Dispo-continued stay Extensive discussion with the senior living system -current plan in place to be the patient returns to the senior living when medically stable Patient will then have supplies to continue antibiotic care at [place] [facility] but with eventual transition to [facility] senior living system which is a more robust medical facility Admission and Anticipated Discharge Date Admission Date: June 28, 2023 Subjective Pt seen in evening and was woken from sleep. Guards report he does seem a little off on his mentation today. He ate 2 bites of pot roast for dinner and drank a small amount of fluid today as per guards. No vomiting today. Tells me "I just can't eat." I discussed his care on phone with NEVILLE Self at the senior living Physical Exam Constitutional: + underweight Respiratory: normal respiratory effort, lungs clear to auscultation Cardiovascular: RRR, no murmur, no edema Gastrointestinal (Abdomen): Inspection/Auscultation: normal bowel sounds and + abdominal surgical drain present; + abdomen abnormal to inspection (colostomy bag with stool in place, drain from Left abdomen) Percussion/Palpation: abdomen soft; abdomen nontender Psychiatric: Orientation: alert and oriented x 3 Affect: + flat affect Results & Data Results & Data Vital Signs (Past 12 Hours) Vital Signs Temp Pulse Resp BP Pulse Ox O2 Del Method 08/04/23 23:20 Room Air 08/04/23 20:48 36.3 C L 89 16 161/99 H 99 Room Air 08/04/23 15:16 37.0 C 89 16 163/89 H 100 Room Air Laboratory Results CBC, CMP, TGs,prealbumin, magnesium and phos reviewed PG Care Time/CCT Total # of Minutes Spent Total Time Spent with Patient: Total time spent is greater than 50% in coordination of care (as documented) at patient's floor/unit and/or counseling patient: Coding Level of Care Code 90345 SUB INP/OBS CARE 3/50MIN Diagnoses Perforated abdominal viscus R19.8 Acute kidney injury N17.9 Acute blood loss anemia D62 Bilateral hearing loss, unspecified hearing loss type H91.93 Hearing loss type: unspecified Laterality: bilateral Encephalopathy G93.40 Ulcerative pancolitis with abscess K51.014 Ulcerative colitis location: ulcerative pancolitis Digestive disease complication type: with abscess (4) Hard of hearing Hearing loss type: unspecified Laterality: bilateral Qualified Code(s): H91.93 - Unspecified hearing loss, bilateral (6) Ulcerative colitis Ulcerative colitis location: ulcerative pancolitis Digestive disease complication type: with abscess Qualified Code(s): K51.014 - Ulcerative (chronic) pancolitis with abscess
[2023-08-05] MEDS: metroNIDAZOLE 500 MG/100 ML BAG IV SCH ×3 (05:47→22:01)
[2023-08-05] MEDS: CEFEPIME 1,000 MG in SYRINGE 0 ML IV SCH ×2 (05:47→17:20)
[2023-08-05 06:25] LABS: BUN Creatinine Ratio 5.9 (10-20); Calcium 7.7 mg/dl (8.6-10.3); Creatinine Clr Calc Pharmacy 15.2 ml/min; Est GFR (African American) 18.1 ml/min; Est GFR (Non-African American) 15.7 ml/min; Magnesium 1.8 mg/dl (1.7-2.4); Phosphorus 3.9 mg/dl (2.5-4.9); Potassium 3.5 mmol/L (3.5-5.1)
--- NOTE | 2023-08-05 06:57 | Electrocardiogram Report ---
Test Reason : Blood Pressure : / mmHG Vent. Rate : 078 BPM Atrial Rate : 078 BPM P-R Int : 096 ms QRS Dur : 082 ms QT Int : 386 ms P-R-T Axes : 056 001 055 degrees QTc Int : 440 ms Sinus rhythm with short OR Nonspecific ST abnormality When compared with ECG of 21-JUN-2023 10:47, No significant change was found Confirmed by Vasiliy Ramirez ([id number] on 08/05/2023 6:57:03 AM Referred By: [facility] Confirmed By:Vasiliy Ramirez
--- NOTE | 2023-08-05 08:18 | Hospitalist Progress Note ---
Date of Service August 05, 2023 Assessment & Plan (1) Perforated abdominal viscus: Plan: Patient with recent diagnosis of Ulcerative pancolitis, and had sessile polyp biopsied along with other biopsies on a colonoscopy during previous admission. Presented with free air, to OR 06/28/23 with subtotal colon resection with rectal stump remaining, and ileostomy. Three areas of perforation were identified, abscess and feculent material seen. Pseudomonas, Staphylococcus aureus, and Enterococcus faecium as well as Mariely albicans isolated. RUQ drain has been removed. IR drain remains and continues to drain in LUQ manipulated on 07/23/[address] scan 07/19 shows persistent fluid collections consistent with abscess 07/23/2023 shows a leukocytosis hence the drain manipulation Repeat abdominal CT on 08/02 with improving size and multiple abscesses but still one that is large 9 cm- discussed with IR about possible drainage and not possible as drain in larger pocket and loculated other pockets too small Wound vac remains in place over LLQ and being changed every 3 days Leukocytosis resolved, remains afebrile P.o. intake remains extremely poor-dietary following. SPeech saw and said no problems with swallowing--> prealbumin low, TGs mildly high, phos replete GI consult 08/03--> recommended no EGD, start PPI bid, check H. pylori, start phenergan prn Attempted barium swallow to assess for obstruction given frequent vomiting--> he could not drink barium KUB 07/31 no obstruction ECG no prolonged QT while on diflucan Appreciate infectious disease recommendations -continue daptomycin, cefepime, renally adjusted fluconazole x 4 more weeks through 08/30/23 w/ reevaluation for likely extension with CT abd/pel prior to that around 08/16-08/23 to see if needs further IR drainage or drain manipulation -continue metronidazole 500mg bid through 08/10/23 -started Remeron 7.5mg po hs for appetite stimulant and in case depression causing poor appetite -Check CK once weekly (next 08/10) while on daptomycin, follow CBC, BMP -started TPN 08/04 given severe malnutrition -gave 6 doses of IV thiamine high-dose to prevent Wernicke encephalopathy in case of deficiency given severe malnutrition while on D5-revert back to 100mg daily (2) Acute kidney injury: Plan: First noted 07/25-maybe atn due to poor po intake, ain from meds not likely as no WBCs on UA, could be OSWALDO from CT scans and ATN from infection Creatinine rising out of porpotion to BUN Not volume overloaded, K+ ok, acidosis now improved with bicab gtt which is now stopped Nonoliguric, no indication for HD today US suggest debris in bladder, thickened bladder wall but no obstruction, but shows MRD UA with protein and blood, no casts, nephrology consultation 24-hour urine with 850mg protein urine culture from 07/27 negative for infection Complements sent by nephrology negative -continue 09/14 NSS+ K -Follow BMP -Appreciate nephrology consultation -Follow urine output (3) Acute blood loss anemia: Plan: Postoperatively. No bleeding noted from anywhere stable hgb at 8-9 B12, folate, iron studies normal TSH mildly elevated and free T4 mildly low-follow likely from chronic disease follow CBC (4) Hard of hearing: Plan: Supportive care, wears hearing device (5) Encephalopathy: Plan: Acute encephalopathy, probably metabolic. Now resolved. Continue supportive care. Head CT scan negative. (6) Ulcerative colitis: Plan: Patient with ulcerative colitis diagnosed by colonoscopy in 06/2023 Now status post subtotal colectomy with only rectal stump remaining No treatment needed at this point but will need continued surveillance for colorectal CA of the rectal stump Will need follow-up with GI as an outpatient Plan Dispo-continued stay Extensive discussion with the correction system -current plan in place to be the patient returns to the correction when medically stable Patient will then have supplies to continue antibiotic care at [place] but with eventual transition to [facility] correction system which is a more robust medical facility Admission and Anticipated Discharge Date Admission Date: June 28, 2023 Subjective patient continues with poor appetite he sometimes has vomitus of foodstuffs this is dependent on the type of food he eats. He is on TPN and tolerating it without much difficulty Physical Exam Physical Exam: his physical exam is little change he is in very little distress his ostomy is functioning well his lungs are clear and heart is regular Results & Data Results & Data Vital Signs (Past 12 Hours) Vital Signs Temp Pulse Resp BP Pulse Ox O2 Del Method 08/05/23 07:38 97.9 F 92 H 16 143/92 H 98 Room Air 08/04/23 23:20 Room Air 08/04/23 20:48 97.3 F L 89 16 161/99 H 99 Room Air Laboratory Results reviewed chemistry approved additional TPN Medications Administered we will try some scheduled Reglan for no more than 5 days continuing Remeron for appetite stimulation PG Care Time/CCT Total # of Minutes Spent Total Time Spent with Patient: Total time spent is greater than 50% in coordination of care (as documented) at patient's floor/unit and/or counseling patient: Coding Level of Care Code 86638 SUB INP/OBS CARE 2/35MIN Diagnoses Perforated abdominal viscus R19.8 Acute kidney injury N17.9 Acute blood loss anemia D62 Bilateral hearing loss, unspecified hearing loss type H91.93 Hearing loss type: unspecified Laterality: bilateral Encephalopathy G93.40 Ulcerative pancolitis with abscess K51.014 Digestive disease complication type: with abscess Ulcerative colitis location: ulcerative pancolitis (4) Hard of hearing Hearing loss type: unspecified Laterality: bilateral Qualified Code(s): H91.93 - Unspecified hearing loss, bilateral (6) Ulcerative colitis Digestive disease complication type: with abscess Ulcerative colitis location: ulcerative pancolitis Qualified Code(s): K51.014 - Ulcerative (chronic) pancolitis with abscess
[2023-08-05] MEDS: HEPARIN SOD 5,000 UNIT/0.5 ML VIAL SQ SCH ×2 (08:40→20:20)
[2023-08-05] MEDS: FAMOTIDINE 20 MG in SYRINGE 3 ML IV SCH ×2 (08:41→20:20)
[2023-08-05] MEDS: THIAMINE HCL 100 MG in SYRINGE 9 ML IV SCH (08:41)
[2023-08-05] MEDS: PANTOprazole 40 MG in SYRINGE 0 ML IV SCH ×2 (08:41→20:20)
--- NOTE | 2023-08-05 11:34 | Nephrology Progress Note ---
Date of Service August 05, 2023 Assessment & Plan (1) Acute kidney injury: Plan: * ATN due to sepsis, contrast induced nephropathy. 07/27/23 renal US was negative for obstruction. Baseline Cr ~ 1.0 * Creatinine stabilizing around 4.0. UO 1960 cc last 24 hours. Volume status and electrolyte balance are acceptable. No acute indication for HD today (2) Perforated abdominal viscus: Plan: * Presented with ulcerative pancolitis * s/p Ex lap subtotal colectomy and ileostomy formation 06/28/23 * Found to have multiple abdominal fluid collections/abscesses. * Cultures have grown out pseudomonas, staph aureus, enterococcus faecium and C albicans. Remains on cefepime, daptomycin, metronidazole, and fluconazole. ID following (3) Acute blood loss anemia: Plan: * Hemoglobin remains relatively stable. No acute need for JARRETT therapy at this time. Admission and Anticipated Discharge Date Admission Date: June 28, 2023 Subjective Mr. Deleon was evaluated in his hospital room this morning. He reports a poor appetite. He voiced no other medical concerns. Review of Systems Constitutional: no fever Eyes: no problem reported Ear, Nose, Mouth, Throat: no problem reported Respiratory: no cough and no dyspnea Cardiovascular: no chest pain Gastrointestinal: no abdominal pain, no nausea, no vomiting and no diarrhea/loose stools Physical Exam Constitutional: + cachectic Eyes: PERRL, conjunctivae normal, anicteric sclerae ENMT: external ear and nose normal, oropharynx normal Neck: trachea midline, no thyromegaly Respiratory: normal respiratory effort, lungs clear to auscultation Cardiovascular: RRR, no murmur, no edema Gastrointestinal (Abdomen): Inspection/Auscultation: + hypoactive bowel sounds Neurologic: Extremely NEWHALEN Results & Data Vital Signs (Past 12 Hours) Vital Signs Temp Pulse Resp BP Pulse Ox O2 Del Method 08/05/23 07:38 36.6 C 92 H 16 143/92 H 98 Room Air Laboratory Results Laboratory Tests 08/02/23 08/03/23 08/04/23 05:43 06:06 07:49 WBC 6.39 Hgb 8.3 L Hct 25.9 L Plt Count 387 Sodium Potassium Chloride Carbon Dioxide BUN Creatinine 3.78 H 3.77 H 08/04/23 08/05/23 07:49 05:28 WBC Hgb Hct Plt Count Sodium 142 Potassium 3.5 Chloride 110 H Carbon Dioxide 25 BUN 24 H Creatinine 3.87 H 4.05 H PG Care Time/CCT Total # of Minutes Spent Total Time Spent with Patient: Total time spent is greater than 50% in coordination of care (as documented) at patient's floor/unit and/or counseling patient: Coding Level of Care Code 35011 SUB INP/OBS CARE 3/50MIN Diagnoses Acute kidney injury N17.9 Perforated abdominal viscus R19.8 Acute blood loss anemia D62
[2023-08-05] MEDS: SODIUM CHLORIDE 0.45 % 1,000 ML IV SCH (11:47)
[2023-08-05] MEDS ORDERED: CENTRAL TPN IV SCH (16:00)
[2023-08-05] MEDS ORDERED: [UNRECOGNIZED DRUG - OTHER] IV SCH (16:00)
[2023-08-05] MEDS: CENTRAL TPN IV SCH (16:09)
[2023-08-05] MEDS: [UNRECOGNIZED DRUG - OTHER] IV SCH (16:09)
[2023-08-05] MEDS: METOCLOPRAMIDE HCL 5 MG TABLET PO SCH ×2 (17:20→20:20)
[2023-08-05] MEDS: FLUCONAZOLE 200 MG/100 ML BAG IV SCH (20:19)
[2023-08-05] MEDS: MIRTAZAPINE TAB 15 MG TAB PO SCH (20:20)
[2023-08-06] MEDS: SODIUM CHLORIDE 0.45 % 1,000 ML IV SCH ×2 (02:34→13:50)
[2023-08-06] MEDS: CEFEPIME 1,000 MG in SYRINGE 0 ML IV SCH ×2 (06:12→17:33)
[2023-08-06] MEDS: metroNIDAZOLE 500 MG/100 ML BAG IV SCH ×3 (06:12→21:57)
[2023-08-06 06:39] LABS: Hemoglobin 8.3 g/dl (14.0-18.0); Mean Corpuscular Hemoglobin 28.7 pg (25.0-34.0); Mean Corpuscular Hgb Conc 31.9 g/dL (32.0-36.0); Mean Platelet Volume 9.6 fL (9.4-12.4); Platelet Count 383 K/uL (130-400); RDW Coefficient of Variation 17.6 % (11.5-14.5); Red Blood Count 2.89 M/uL (4.70-6.10); White Blood Count 6.68 K/ul (4.8-10.8)
[2023-08-06 07:10] LABS: BUN Creatinine Ratio 7.5 (10-20); Calcium 7.5 mg/dl (8.6-10.3); Creatinine Clr Calc Pharmacy 16.3 ml/min; Est GFR (African American) 18.3 ml/min; Est GFR (Non-African American) 15.8 ml/min; Magnesium 1.9 mg/dl (1.7-2.4); Phosphorus 4.6 mg/dl (2.5-4.9); Potassium 3.8 mmol/L (3.5-5.1)
[2023-08-06] MEDS: HEPARIN SOD 5,000 UNIT/0.5 ML VIAL SQ SCH ×2 (07:59→21:41)
[2023-08-06] MEDS: METOCLOPRAMIDE HCL 5 MG TABLET PO SCH ×4 (08:03→21:54)
[2023-08-06] MEDS: FAMOTIDINE 20 MG in SYRINGE 3 ML IV SCH ×2 (08:04→21:47)
[2023-08-06] MEDS: THIAMINE HCL 100 MG in SYRINGE 9 ML IV SCH (08:04)
[2023-08-06] MEDS: PANTOprazole 40 MG in SYRINGE 0 ML IV SCH ×2 (08:04→21:40)
[2023-08-06] MEDS: oxyCODONE/ACETAMINOPHEN 5mg/325mg TAB PO PRN ×2 (08:15→17:39)
--- NOTE | 2023-08-06 09:06 | Nephrology Progress Note ---
Date of Service August 06, 2023 Assessment & Plan (1) Acute kidney injury: Plan: * ATN due to sepsis, contrast induced nephropathy. 07/27/23 renal US was negative for obstruction. Baseline Cr ~ 1.0 * Creatinine stable at 4.0. UO 1350 cc last 24 hours. Volume status and electrolyte balance are acceptable. No acute indication for HD today (2) Perforated abdominal viscus: Plan: * Presented with ulcerative pancolitis * s/p Ex lap subtotal colectomy and ileostomy formation 06/28/23 * Found to have multiple abdominal fluid collections/abscesses. * Cultures have grown out pseudomonas, staph aureus, enterococcus faecium and C albicans. Remains on cefepime, daptomycin, metronidazole, and fluconazole. ID following (3) Acute blood loss anemia: Plan: * Hemoglobin remains relatively stable. No acute need for JARRETT therapy at this time. Admission and Anticipated Discharge Date Admission Date: June 28, 2023 Subjective Mr. Deleon was evaluated in his hospital room this morning. He reports a poor appetite. He voiced no other medical concerns. Review of Systems Constitutional: no fever Eyes: no problem reported Ear, Nose, Mouth, Throat: no problem reported Respiratory: no cough and no dyspnea Cardiovascular: no chest pain Gastrointestinal: no abdominal pain, no nausea, no vomiting and no diarrhea/loose stools Physical Exam Constitutional: + ill appearing and + cachectic; not in distress Eyes: PERRL, conjunctivae normal, anicteric sclerae ENMT: external ear and nose normal, oropharynx normal Neck: trachea midline, no thyromegaly Respiratory: normal respiratory effort, lungs clear to auscultation Cardiovascular: RRR, no murmur, no edema Rate/Rhythm: regular rate, regular rhythm and + tachycardic Extremities: + edema (trace pretibial pitting edema) Gastrointestinal (Abdomen): Inspection/Auscultation: + hypoactive bowel sounds Neurologic: awake Results & Data Vital Signs (Past 12 Hours) Vital Signs Temp Pulse Resp BP Pulse Ox O2 Del Method 08/06/23 08:08 36.6 C 97 H 16 149/89 H 98 Room Air 08/05/23 22:44 Room Air 08/05/23 22:02 36.4 C L 87 18 150/85 H 98 Room Air Laboratory Results Laboratory Results - last 24 hr 08/06/23 08/06/23 08/06/23 01:27 05:56 05:57 WBC 6.68 RBC 2.89 L Hgb 8.3 L Hct 26.0 L MCV 90.0 MCH 28.7 MCHC 31.9 L RDW Std Deviation 58.0 H RDW Coeff of Ashley 17.6 H Plt Count 383 MPV 9.6 Sodium 142 Potassium 3.8 Chloride 110 H Carbon Dioxide 25 Anion Gap 7 BUN 30 H Creatinine 4.02 H Est Cr Clr Drug Dosing 16.3 Est GFR ( Amer) 18.3 Est GFR (Non-Af Amer) 15.8 BUN/Creatinine Ratio 7.5 L Glucose 117 H POC Glucose 122 H 124 H Calcium 7.5 L Phosphorus 4.6 Magnesium 1.9 PG Care Time/CCT Total # of Minutes Spent Total Time Spent with Patient: Total time spent is greater than 50% in coordination of care (as documented) at patient's floor/unit and/or counseling patient: Coding Level of Care Code 67156 SUB INP/OBS CARE 3/50MIN Diagnoses Acute kidney injury N17.9 Perforated abdominal viscus R19.8 Acute blood loss anemia D62
[2023-08-06] MEDS: DAPTOmycin 600 MG in SYRINGE 0 ML IV SCH (13:50)
[2023-08-06] MEDS ORDERED: CENTRAL TPN IV SCH (16:00)
[2023-08-06] MEDS ORDERED: CLINOLIPID 20% IV FAT EMULSION 250 ML IV SCH (16:00)
[2023-08-06] MEDS ORDERED: [UNRECOGNIZED DRUG - OTHER] IV SCH (16:00)
[2023-08-06] MEDS ORDERED: amLODIPine BESYLATE 5 MG TAB PO ONE (17:53)
--- NOTE | 2023-08-06 17:58 | Hospitalist Progress Note ---
Date of Service August 06, 2023 Assessment & Plan (1) Perforated abdominal viscus: Plan: Patient with recent diagnosis of Ulcerative pancolitis, and had sessile polyp biopsied along with other biopsies on a colonoscopy during previous admission. Presented with free air, to OR 06/28/23 with subtotal colon resection with rectal stump remaining, and ileostomy. Three areas of perforation were identified, abscess and feculent material seen. Pseudomonas, Staphylococcus aureus, and Enterococcus faecium as well as Mariely albicans isolated. RUQ drain has been removed. IR drain remains and continues to drain in LUQ manipulated on 07/23/[address] scan 07/19 shows persistent fluid collections consistent with abscess 07/23/2023 shows a leukocytosis hence the drain manipulation Repeat abdominal CT on 08/02 with improving size and multiple abscesses but still one that is large 9 cm- discussed with IR not possible as drain additional larger pocket as loculated other pockets too small Wound vac remains in place over LLQ and being changed every 3 days Leukocytosis resolved, remains afebrile P.o. intake remains extremely poor-dietary following. SPeech saw and said no problems with swallowing--> prealbumin low, TGs mildly high, phos replete GI consult 08/03--> recommended no EGD, start PPI bid, check H. pylori, start phenergan prn Attempted barium swallow to assess for obstruction given frequent vomiting--> he could not drink barium KUB 07/31 no obstruction ECG no prolonged QT while on diflucan Appreciate infectious disease recommendations -continue daptomycin, cefepime, renally adjusted fluconazole through 08/30/23 w/ reevaluation for likely extension with CT abd/pel prior to that around 08/16- 08/23 to see if needs further IR drainage or drain manipulation -continue metronidazole 500mg bid through 08/10/23 -started Remeron 7.5mg po hs for appetite stimulant and in case depression causing poor appetite reglan scheduled for post prandial nausea -Check CK once weekly (next 08/10) while on daptomycin, follow CBC, BMP -started TPN 08/04 given severe malnutrition -gave 6 doses of IV thiamine high-dose to prevent Wernicke encephalopathy in case of deficiency given severe malnutrition while on D5-revert back to 100mg daily (2) Acute kidney injury: Plan: First noted 07/25-maybe atn due to poor po intake, ain from meds not likely as no WBCs on UA, could be OSWALDO from CT scans and ATN from infection Creatinine rising out of porpotion to BUN Not volume overloaded, K+ ok, acidosis now improved with bicab gtt which is now stopped Nonoliguric, no indication for HD today US suggest debris in bladder, thickened bladder wall but no obstruction, but shows MRD UA with protein and blood, no casts, nephrology consultation 24-hour urine with 850mg protein urine culture from 07/27 negative for infection Complements sent by nephrology negative -continue 09/14 NSS+ K -Follow BMP -Appreciate nephrology consultation -Follow urine output (3) Acute blood loss anemia: Plan: Postoperatively. No bleeding noted from anywhere stable hgb at 8-9 B12, folate, iron studies normal TSH mildly elevated and free T4 mildly low-follow likely from chronic disease follow CBC (4) Hard of hearing: Plan: Supportive care, wears hearing device (5) Encephalopathy: Plan: Acute encephalopathy, probably metabolic. Now resolved. Continue supportive care. Head CT scan negative. (6) Ulcerative colitis: Plan: Patient with ulcerative colitis diagnosed by colonoscopy in 06/2023 Now status post subtotal colectomy with only rectal stump remaining No treatment needed at this point but will need continued surveillance for colorectal CA of the rectal stump Will need follow-up with GI as an outpatient Plan Dispo-continued stay Extensive discussion with [facility] -current plan in place to be the patient returns to the [facility] when medically stable Patient will then have supplies to continue antibiotic care at [place] but with eventual transition to [facility] usp system which is a more robust medical facility Admission and Anticipated Discharge Date Admission Date: June 28, 2023 Subjective pt has no complaints did have some improvement after starting modest reglan dosing, trying to help post prandial vomiting no new issues Biomed trying to get hearing aide batteries Physical Exam Physical Exam: his physical exam is little change he is in very little distress his ostomy is functioning well his lungs are clear and heart is regular Results & Data Results & Data Vital Signs (Past 12 Hours) Vital Signs Temp Pulse Resp BP Pulse Ox O2 Del Method 08/06/23 15:36 98.2 F 96 H 16 168/95 H 98 Room Air 08/06/23 10:00 Room Air 08/06/23 08:08 97.9 F 97 H 16 149/89 H 98 Room Air Laboratory Results reviewed cbc revieed chemistry PG Care Time/CCT Total # of Minutes Spent Total Time Spent with Patient: Total time spent is greater than 50% in coordination of care (as documented) at patient's floor/unit and/or counseling patient: Coding Level of Care Code 26931 SUB INP/OBS CARE 2/35MIN Diagnoses Perforated abdominal viscus R19.8 Acute kidney injury N17.9 Acute blood loss anemia D62 Bilateral hearing loss, unspecified hearing loss type H91.93 Hearing loss type: unspecified Laterality: bilateral Encephalopathy G93.40 Ulcerative pancolitis with abscess K51.014 Ulcerative colitis location: ulcerative pancolitis Digestive disease complication type: with abscess (4) Hard of hearing Hearing loss type: unspecified Laterality: bilateral Qualified Code(s): H91.93 - Unspecified hearing loss, bilateral (6) Ulcerative colitis Ulcerative colitis location: ulcerative pancolitis Digestive disease complication type: with abscess Qualified Code(s): K51.014 - Ulcerative (chronic) pancolitis with abscess
[2023-08-06] MEDS: FLUCONAZOLE 200 MG/100 ML BAG IV SCH (20:30)
[2023-08-06] MEDS: MIRTAZAPINE TAB 15 MG TAB PO SCH (21:53)
[2023-08-07] MEDS: CEFEPIME 1,000 MG in SYRINGE 0 ML IV SCH ×2 (05:36→18:45)
[2023-08-07] MEDS: metroNIDAZOLE 500 MG/100 ML BAG IV SCH ×3 (05:42→21:35)
[2023-08-07] MEDS: SODIUM CHLORIDE 0.45 % 1,000 ML IV SCH ×2 (06:50→22:42)
[2023-08-07] MEDS: METOCLOPRAMIDE HCL 5 MG TABLET PO SCH ×4 (06:54→21:42)
[2023-08-07] MEDS: HEPARIN SOD 5,000 UNIT/0.5 ML VIAL SQ SCH ×2 (08:39→21:39)
[2023-08-07] MEDS: THIAMINE HCL 100 MG in SYRINGE 9 ML IV SCH (08:42)
[2023-08-07] MEDS: PANTOprazole 40 MG in SYRINGE 0 ML IV SCH ×2 (08:44→21:27)
[2023-08-07] MEDS: amLODIPine BESYLATE 5 MG TAB PO SCH (08:50)
--- NOTE | 2023-08-07 08:58 | Nephrology Progress Note ---
Date of Service August 07, 2023 Assessment & Plan (1) Acute kidney injury: Plan: * ATN due to sepsis, contrast induced nephropathy. 07/27/23 renal US was negative for obstruction. Baseline Cr ~ 1.0 * Creatinine stable at 4.0. UO 1350 cc last 24 hours. Volume status and electrolyte balance are acceptable. No acute indication for HD today (2) Perforated abdominal viscus: Plan: * Presented with ulcerative pancolitis * s/p Ex lap subtotal colectomy and ileostomy formation 06/28/23 * Found to have multiple abdominal fluid collections/abscesses. * Cultures have grown out pseudomonas, staph aureus, enterococcus faecium and C albicans. Remains on cefepime, daptomycin, metronidazole, and fluconazole. ID following (3) Acute blood loss anemia: Plan: * Hemoglobin remains relatively stable. No acute need for JARRETT therapy at this time. Admission and Anticipated Discharge Date Admission Date: June 28, 2023 Subjective Mr. Deleon was evaluated in his hospital room this morning. His appetite re liang poor. He voiced no other medical concerns. Review of Systems Constitutional: no fever Eyes: no problem reported Ear, Nose, Mouth, Throat: no problem reported Respiratory: no cough and no dyspnea Cardiovascular: no chest pain Gastrointestinal: no abdominal pain, no nausea, no vomiting and no diarrhea/loose stools Physical Exam Constitutional: + ill appearing and + cachectic; not in distress Eyes: PERRL, conjunctivae normal, anicteric sclerae ENMT: external ear and nose normal, oropharynx normal Neck: trachea midline, no thyromegaly Respiratory: normal respiratory effort, lungs clear to auscultation Cardiovascular: RRR, no murmur, no edema Rate/Rhythm: regular rate, regular rhythm and + tachycardic Extremities: + edema (trace pretibial pitting edema) Gastrointestinal (Abdomen): Inspection/Auscultation: + hypoactive bowel sounds Neurologic: awake Results & Data Vital Signs (Past 12 Hours) Vital Signs Temp Pulse Resp BP Pulse Ox O2 Del Method 08/07/23 07:52 36.5 C 105 H 16 153/89 H 99 Room Air 08/06/23 22:15 36.9 C 99 H 17 152/89 H 97 Room Air Laboratory Results Laboratory Results - last 24 hr 08/03/23 08/06/23 08/06/23 12:15 11:50 18:05 Sodium Potassium Chloride Carbon Dioxide Anion Gap BUN Creatinine Est Cr Clr Drug Dosing Est GFR ( Amer) Est GFR (Non-Af Amer) BUN/Creatinine Ratio Glucose POC Glucose 115 H 121 H Calcium Phosphorus Magnesium Stool H. pylori Ag SEE NOTE 08/06/23 08/07/23 08/07/23 23:46 05:31 08:35 Sodium 138 Potassium 3.8 Chloride 107 Carbon Dioxide 24 Anion Gap 7 BUN 38 H Creatinine 4.02 H Est Cr Clr Drug Dosing 16.0 Est GFR ( Amer) 18.3 Est GFR (Non-Af Amer) 15.8 BUN/Creatinine Ratio 9.5 L Glucose 131 H POC Glucose 128 H 128 H Calcium 7.5 L Phosphorus 3.8 Magnesium 1.9 Stool H. pylori Ag PG Care Time/CCT Total # of Minutes Spent Total Time Spent with Patient: Total time spent is greater than 50% in coordination of care (as documented) at patient's floor/unit and/or counseling patient: Coding Level of Care Code 45573 SUB INP/OBS CARE 3/50MIN Diagnoses Acute kidney injury N17.9 Perforated abdominal viscus R19.8 Acute blood loss anemia D62
[2023-08-07] MEDS: FAMOTIDINE 20 MG in SYRINGE 3 ML IV SCH ×2 (09:06→21:27)
[2023-08-07 09:25] LABS: BUN Creatinine Ratio 9.5 (10-20); Calcium 7.5 mg/dl (8.6-10.3); Est GFR (African American) 18.3 ml/min; Est GFR (Non-African American) 15.8 ml/min; Magnesium 1.9 mg/dl (1.7-2.4); Phosphorus 3.8 mg/dl (2.5-4.9); Potassium 3.8 mmol/L (3.5-5.1)
--- NOTE | 2023-08-07 15:48 | Hospitalist Progress Note ---
Date of Service August 07, 2023 Assessment & Plan (1) Perforated abdominal viscus: Plan: Patient with recent diagnosis of Ulcerative pancolitis, and had sessile polyp biopsied along with other biopsies on a colonoscopy during previous admission. Presented with free air, to OR 06/28/23 with subtotal colon resection with rectal stump remaining, and ileostomy. Three areas of perforation were identified, abscess and feculent material seen. Pseudomonas, Staphylococcus aureus, and Enterococcus faecium as well as Mariely albicans isolated. RUQ drain has been removed. IR drain remains and continues to drain in LUQ manipulated on 07/23/[address] scan 07/19 shows persistent fluid collections consistent with abscess 07/23/2023 shows a leukocytosis hence the drain manipulation Repeat abdominal CT on 08/02 with improving size and multiple abscesses but still one that is large 9 cm- discussed with IR not possible as drain additional larger pocket as loculated other pockets too small Wound vac remains in place over LLQ and being changed every 3 days Leukocytosis resolved, remains afebrile P.o. intake remains extremely poor-dietary following. SPeech saw and said no problems with swallowing--> prealbumin low, TGs mildly high, phos replete GI consult 08/03--> recommended no EGD, start PPI bid, check H. pylori, start phenergan prn Attempted barium swallow to assess for obstruction given frequent vomiting--> he could not drink barium KUB 07/31 no obstruction ECG no prolonged QT while on diflucan Appreciate infectious disease recommendations -continue daptomycin, cefepime, renally adjusted fluconazole through 08/30/23 w/ reevaluation for likely extension with CT abd/pel prior to that around 08/16- 08/23 to see if needs further IR drainage or drain manipulation -continue metronidazole 500mg bid through 08/10/23 -started Remeron 7.5mg po hs for appetite stimulant and in case depression causing poor appetite reglan scheduled for post prandial nausea -Check CK once weekly (next 08/10) while on daptomycin, follow CBC, BMP -started TPN 08/04 given severe malnutrition -gave 6 doses of IV thiamine high-dose to prevent Wernicke encephalopathy in case of deficiency given severe malnutrition while on D5-revert back to 100mg daily (2) Acute kidney injury: Plan: First noted 07/25-maybe atn due to poor po intake, ain from meds not likely as no WBCs on UA, could be OSWALDO from CT scans and ATN from infection Creatinine rising out of porpotion to BUN. Creatinine stable at 4 for the last 3 days. Possibly peaked, waiting for downward trend. Not volume overloaded, K+ ok, acidosis now improved with bicab gtt which is now stopped Nonoliguric, no indication for HD today US suggest debris in bladder, thickened bladder wall but no obstruction, but shows MRD UA with protein and blood, no casts, nephrology consultation 24-hour urine with 850mg protein urine culture from 07/27 negative for infection Complements sent by nephrology negative -continue 09/14 NSS+ K -Follow BMP -Appreciate nephrology consultation -Follow urine output (3) Acute blood loss anemia: Plan: Postoperatively. No bleeding noted from anywhere stable hgb at 8-9 B12, folate, iron studies normal TSH mildly elevated and free T4 mildly low-follow likely from chronic disease follow CBC (4) Hard of hearing: Plan: Supportive care, wears hearing device (5) Encephalopathy: Plan: Acute encephalopathy, probably metabolic. Now resolved. Continue supportive care. Head CT scan negative. (6) Ulcerative colitis: Plan: Patient with ulcerative colitis diagnosed by colonoscopy in 06/2023 Now status post subtotal colectomy with only rectal stump remaining No treatment needed at this point but will need continued surveillance for colorectal CA of the rectal stump Will need follow-up with GI as an outpatient Plan Dispo-continued stay Extensive [facility] [place] [facility] -current plan in place to be the [place] [facility] [place] [facility] medically stable Patient will then have supplies to continue antibiotic care at [place] but with [facility] [place] [facility] [place] [facility] which is a more robust medical facility Admission and Anticipated Discharge Date Admission Date: June 28, 2023 Subjective Patient complains of nausea. No vomiting. Denies chest pain or shortness of breath. Review of Systems Review of Systems: All systems reviewed & are unremarkable except as noted in Subjective Physical Exam Physical Exam: General: Awake, conversant Heart: S1, S2/regular rate and rhythm, no murmur rubs or gallops Lungs: Clear to auscultation bilaterally. Normal effort Abdomen: Soft/nontender/nondistended. No hepatosplenomegaly. Colostomy bag in place. Left upper quadrant drain catheter in place. Extremities: No clubbing/cyanosis. Trace bilateral edema Behavior: Appropriate, cooperative Results & Data Results & Data Vital Signs (Past 12 Hours) Vital Signs Temp Pulse Resp BP Pulse Ox O2 Del Method 08/07/23 09:11 Room Air 08/07/23 07:52 36.5 C 105 H 16 153/89 H 99 Room Air Laboratory Results Abnormal lab results 08/06/23 08/06/23 08/07/23 Range/Units 18:05 23:46 05:31 BUN (6-23) mg/dl Creatinine (0.6-1.4) mg/dl BUN/Creatinine Ratio (10-20) Glucose (70-99(Fasting)) mg/dl POC Glucose 121 H 128 H 128 H (70-99) mg/dl Calcium (8.6-10.3) mg/dl 08/07/23 08/07/23 Range/Units 08:35 12:04 BUN 38 H (6-23) mg/dl Creatinine 4.02 H (0.6-1.4) mg/dl BUN/Creatinine Ratio 9.5 L (10-20) Glucose 131 H (70-99(Fasting)) mg/dl POC Glucose 128 H (70-99) mg/dl Calcium 7.5 L (8.6-10.3) mg/dl PG Care Time/CCT Total # of Minutes Spent Total Time Spent with Patient: Total time spent is greater than 50% in coordination of care (as documented) at patient's floor/unit and/or counseling patient: Coding Level of Care Code 58335 SUB INP/OBS CARE 2/35MIN Diagnoses Perforated abdominal viscus R19.8 Acute kidney injury N17.9 Acute blood loss anemia D62 Bilateral hearing loss, unspecified hearing loss type H91.93 Hearing loss type: unspecified Laterality: bilateral Encephalopathy G93.40 Ulcerative pancolitis with abscess K51.014 Ulcerative colitis location: ulcerative pancolitis Digestive disease complication type: with abscess (4) Hard of hearing Hearing loss type: unspecified Laterality: bilateral Qualified Code(s): H91.93 - Unspecified hearing loss, bilateral (6) Ulcerative colitis Ulcerative colitis location: ulcerative pancolitis Digestive disease complication type: with abscess Qualified Code(s): K51.014 - Ulcerative (chronic) pancolitis with abscess
[2023-08-07] MEDS ORDERED: [UNRECOGNIZED DRUG - OTHER] IV SCH (16:00)
[2023-08-07] MEDS ORDERED: CENTRAL TPN IV SCH (16:00)
[2023-08-07] MEDS: FLUCONAZOLE 200 MG/100 ML BAG IV SCH (20:06)
[2023-08-07] MEDS: MIRTAZAPINE TAB 15 MG TAB PO SCH (21:43)
[2023-08-08] MEDS: CEFEPIME 1,000 MG in SYRINGE 0 ML IV SCH ×2 (05:17→17:46)
[2023-08-08] MEDS: metroNIDAZOLE 500 MG/100 ML BAG IV SCH ×3 (05:24→21:44)
[2023-08-08] MEDS: METOCLOPRAMIDE HCL 5 MG TABLET PO SCH ×4 (06:39→21:41)
[2023-08-08 09:03] LABS: Hematocrit (blood only) 25.2 % (42.0-52.0); Hemoglobin 7.9 g/dl (14.0-18.0); Mean Corpuscular Hemoglobin 28.1 pg (25.0-34.0); Mean Corpuscular Hgb Conc 31.3 g/dL (32.0-36.0); Mean Corpuscular Volume 89.7 fL (80.0-100.0); Mean Platelet Volume 9.7 fL (9.4-12.4); Platelet Count 400 K/uL (130-400); RDW Coefficient of Variation 17.3 % (11.5-14.5); RDW Standard Deviation 56.4 fL (36.4-46.3); Red Blood Count 2.81 M/uL (4.70-6.10); White Blood Count 5.91 K/ul (4.8-10.8)
--- NOTE | 2023-08-08 09:10 | Nephrology Progress Note ---
Date of Service August 08, 2023 Assessment & Plan (1) Acute kidney injury: Plan: * ATN due to sepsis, contrast induced nephropathy. 07/27/23 renal US was negative for obstruction. Baseline Cr ~ 1.0 * Creatinine remains stable at approximately 4.0. UO 1575 cc last 24 hours. Volume status and electrolyte balance are acceptable. No acute indication for HD today (2) Perforated abdominal viscus: Plan: * Presented with ulcerative pancolitis * s/p Ex lap subtotal colectomy and ileostomy formation 06/28/23 * Found to have multiple abdominal fluid collections/abscesses. * Cultures have grown out pseudomonas, staph aureus, enterococcus faecium and C albicans. Remains on cefepime, daptomycin, metronidazole, and fluconazole. ID following (3) Acute blood loss anemia: Plan: * Hgb is gradually trending down * Patient likely will not respond to JARRETT due to inflammation * Recommend blood transfusion to maintain Hgb > 7.0 Admission and Anticipated Discharge Date Admission Date: June 28, 2023 Subjective Mr. Deleon was evaluated in his hospital room this morning. His appetite remains poor. He c/o mild abdominal discomfort. He voiced no other medical concerns. Review of Systems Constitutional: no fever Eyes: no problem reported Ear, Nose, Mouth, Throat: no problem reported Respiratory: no cough and no dyspnea Cardiovascular: no chest pain Gastrointestinal: + abdominal pain and + nausea; no vomiti ng and no diarrhea/loose stools Physical Exam Constitutional: + ill appearing and + cachectic; not in distress Eyes: PERRL, conjunctivae normal, anicteric sclerae ENMT: external ear and nose normal, oropharynx normal Neck: trachea midline, no thyromegaly Respiratory: normal respiratory effort, lungs clear to auscultation Cardiovascular: RRR, no murmur, no edema Rate/Rhythm: regular rate, regular rhythm and + tachycardic Extremities: + edema (trace pretibial pitting edema) Gastrointestinal (Abdomen): Inspection/Auscultation: + hypoactive bowel sounds Neurologic: awake Results & Data Vital Signs (Past 12 Hours) Vital Signs Temp Pulse Resp BP Pulse Ox O2 Del Method 08/08/23 08:07 36.3 C L 111 H 16 150/93 H 96 Room Air 08/07/23 21:51 36.6 C 105 H 17 148/93 H 97 Room Air Laboratory Results Laboratory Results - last 24 hr 08/07/23 08/08/23 12:04 08:46 WBC 5.91 RBC 2.81 L Hgb 7.9 L Hct 25.2 L MCV 89.7 MCH 28.1 MCHC 31.3 L RDW Std Deviation 56.4 H RDW Coeff of Ashley 17.3 H Plt Count 400 MPV 9.7 Sodium 139 Potassium 4.2 Chloride 107 Carbon Dioxide 23 Anion Gap 9 BUN 46 H Creatinine 4.20 H Est Cr Clr Drug Dosing 15.6 Est GFR ( Amer) 17.4 Est GFR (Non-Af Amer) 15.0 BUN/Creatinine Ratio 11.0 Glucose 127 H POC Glucose 128 H Calcium 7.8 L Phosphorus 3.8 Magnesium 2.0 PG Care Time/CCT Total # of Minutes Spent Total Time Spent with Patient: Total time spent is greater than 50% in coordination of care (as documented) at patient's floor/unit and/or counseling patient: Coding Level of Care Code 30294 SUB INP/OBS CARE 3/50MIN Diagnoses Acute kidney injury N17.9 Perforated abdominal viscus R19.8 Acute blood loss anemia D62
[2023-08-08 09:16] LABS: Calcium 7.8 mg/dl (8.6-10.3); Creatinine Clr Calc Pharmacy 15.6 ml/min; Est GFR (African American) 17.4 ml/min; Phosphorus 3.8 mg/dl (2.5-4.9); Potassium 4.2 mmol/L (3.5-5.1)
[2023-08-08] MEDS: amLODIPine BESYLATE 5 MG TAB PO SCH (09:24)
[2023-08-08] MEDS: HEPARIN SOD 5,000 UNIT/0.5 ML VIAL SQ SCH ×2 (09:30→21:41)
[2023-08-08] MEDS ORDERED: Nursing to Pharmacy Communication SCH (14:15)
[2023-08-08] MEDS: DAPTOmycin 600 MG in SYRINGE 0 ML IV SCH (14:17)
[2023-08-08] MEDS: PANTOprazole 40 MG in SYRINGE 0 ML IV SCH ×3 (14:20→21:34)
[2023-08-08] MEDS: THIAMINE HCL 100 MG in SYRINGE 9 ML IV SCH ×2 (14:20→15:06)
[2023-08-08] MEDS: FAMOTIDINE 20 MG in SYRINGE 3 ML IV SCH (14:23)
--- NOTE | 2023-08-08 14:24 | Hospitalist Progress Note ---
Date of Service August 08, 2023 Assessment & Plan (1) Perforated abdominal viscus: Plan: Patient with recent diagnosis of Ulcerative pancolitis, and had sessile polyp biopsied along with other biopsies on a colonoscopy during previous admission. Presented with free air, to OR 06/28/23 with subtotal colon resection with rectal stump remaining, and ileostomy. Three areas of perforation were identified, abscess and feculent material seen. Pseudomonas, Staphylococcus aureus, and Enterococcus faecium as well as Mariely albicans isolated. RUQ drain has been removed. IR drain remains and continues to drain in LUQ manipulated on 07/23/[address] scan 07/19 shows persistent fluid collections consistent with abscess 07/23/2023 shows a leukocytosis hence the drain manipulation Repeat abdominal CT on 08/02 with improving size and multiple abscesses but still one that is large 9 cm- discussed with IR not possible as drain additional larger pocket as loculated other pockets too small Wound vac remains in place over LLQ and being changed every 3 days Leukocytosis resolved, remains afebrile P.o. intake remains extremely poor-dietary following. SPeech saw and said no problems with swallowing--> prealbumin low, TGs mildly high, phos replete GI consult 08/03--> recommended no EGD, start PPI bid, check H. pylori, start phenergan prn Attempted barium swallow to assess for obstruction given frequent vomiting--> he could not drink barium KUB 07/31 no obstruction ECG no prolonged QT while on diflucan Appreciate infectious disease recommendations -continue daptomycin, cefepime, renally adjusted fluconazole through 08/30/23 w/ reevaluation for likely extension with CT abd/pel prior to that around 08/16- 08/23 to see if needs further IR drainage or drain manipulation -continue metronidazole 500mg bid through 08/10/23 -started Remeron 7.5mg po hs for appetite stimulant and in case depression causing poor appetite reglan scheduled for post prandial nausea -Check CK once weekly (next 08/10) while on daptomycin, follow CBC, BMP -started TPN 08/04 given severe malnutrition -gave 6 doses of IV thiamine high-dose to prevent Wernicke encephalopathy in case of deficiency given severe malnutrition while on D5-revert back to 100mg daily (2) Acute kidney injury: Plan: First noted 07/25-maybe atn due to poor po intake, ain from meds not likely as no WBCs on UA, could be OSWALDO from CT scans and ATN from infection Creatinine rising out of porpotion to BUN. Creatinine stable at 4 for the last 3 days But today 4.2. Not volume overloaded, K+ ok, acidosis now improved with bicab gtt which is now stopped Nonoliguric, no indication for HD today US suggest debris in bladder, thickened bladder wall but no obstruction, but shows MRD UA with protein and blood, no casts, nephrology consultation 24-hour urine with 850mg protein urine culture from 07/27 negative for infection Complements sent by nephrology negative -continue 09/14 NSS+ K -Follow BMP -Appreciate nephrology consultation -Follow urine output Although patient does not have overt electrolyte imbalances like metabolic acidosis or hyperkalemia, he is starting to show signs of asterixis which may be a sign of uremic encephalopathy. Nephrology on board. Will monitor. (3) Acute blood loss anemia: Plan: Postoperatively. No bleeding noted from anywhere stable hgb at 8-9 B12, folate, iron studies normal TSH mildly elevated and free T4 mildly low-follow likely from chronic disease follow CBC (4) Hard of hearing: Plan: Supportive care, wears hearing device (5) Encephalopathy: Plan: Acute encephalopathy, probably metabolic. Now resolved. Continue supportive care. Head CT scan negative. Patient does not appear to be confused overtly or comatose. However he may be starting with uremic encephalopathy with asterixis noted today. (6) Ulcerative colitis: Plan: Patient with ulcerative colitis diagnosed by colonoscopy in 06/2023 Now status post subtotal colectomy with only rectal stump remaining No treatment needed at this point but will need continued surveillance for colorectal CA of the rectal stump Will need follow-up with GI as an outpatient Plan Dispo-continued stay Extensive discussion with the assisted system -current plan in place to be the patient returns to the assisted when medically stable Patient will then have supplies to continue antibiotic care at [place] but with eventual transition to [facility] assisted system which is a more robust medical facility Admission and Anticipated Discharge Date Admission Date: June 28, 2023 Subjective I was alerted by the nurse that the patient is weak. He is not able to feed himself without his hands dropping. He is dropping his urine bottle. I evaluated the patient. He is weak in general. There is no unilateral weakness. He is having flapping tremor/asterixis noted in his hands bilaterally. He does not appear to be overtly confused Review of Systems Review of Systems: All systems reviewed & are unremarkable except as noted in Subjective Physical Exam Physical Exam: General: Awake, conversant. Asterixis noted bilaterally. Heart: S1, S2/regular rate and rhythm, no murmur rubs or gallops Lungs: Clear to auscultation bilaterally. Normal effort Abdomen: Soft/nontender/nondistended. No hepatosplenomegaly. Colostomy bag in place. Left upper quadrant drain catheter in place. Extremities: No clubbing/cyanosis. Trace bilateral edema Behavior: Appropriate, cooperative Results & Data Results & Data Vital Signs (Past 12 Hours) Vital Signs Temp Pulse Resp BP Pulse Ox O2 Del Method 08/08/23 10:43 Room Air 08/08/23 08:07 36.3 C L 111 H 16 150/93 H 96 Room Air PG Care Time/CCT Total # of Minutes Spent Total Time Spent with Patient: Total time spent is greater than 50% in coordination of care (as documented) at patient's floor/unit and/or counseling patient: Coding Level of Care Code 79258 SUB INP/OBS CARE 2/35MIN Diagnoses Perforated abdominal viscus R19.8 Acute kidney injury N17.9 Acute blood loss anemia D62 Bilateral hearing loss, unspecified hearing loss type H91.93 Hearing loss type: unspecified Laterality: bilateral Encephalopathy G93.40 Ulcerative pancolitis with abscess K51.014 Ulcerative colitis location: ulcerative pancolitis Digestive disease complication type: with abscess (4) Hard of hearing Hearing loss type: unspecified Laterality: bilateral Qualified Code(s): H91.93 - Unspecified hearing loss, bilateral (6) Ulcerative colitis Ulcerative colitis location: ulcerative pancolitis Digestive disease complication type: with abscess Qualified Code(s): K51.014 - Ulcerative (chronic) pancolitis with abscess
[2023-08-08] MEDS ORDERED: [UNRECOGNIZED DRUG - OTHER] IV SCH (16:00)
[2023-08-08] MEDS ORDERED: CENTRAL TPN IV SCH (16:00)
[2023-08-08] MEDS: SODIUM CHLORIDE 0.45 % 1,000 ML IV SCH (16:09)
[2023-08-08] MEDS: oxyCODONE/ACETAMINOPHEN 5mg/325mg TAB PO PRN (16:16)
[2023-08-08] MEDS: FLUCONAZOLE 200 MG/100 ML BAG IV SCH (20:08)
[2023-08-08] MEDS: MIRTAZAPINE TAB 15 MG TAB PO SCH (21:40)
--- NOTE | 2023-08-09 01:13 | CT Scan Report ---
Exam(s): CT HEAD Without Contrast EXAM: CT Head Without Intravenous Contrast CLINICAL HISTORY: Expressive aphasia. TECHNIQUE: Axial computed tomography images of the head/brain without intravenous contrast. CTDI is 38.78 mGy and DLP is 625.8 mGy-cm. Automated exposure control was utilized for the study. A dose lowering technique was utilized adhering to the principles of ALARA. COMPARISON: CT head without contrast dated 07/10/2023 FINDINGS: Brain: Unremarkable. No hemorrhage. No significant white matter disease. No edema. Ventricles: Unremarkable. No ventriculomegaly. Bones/joints: Unremarkable. No acute fracture. Soft tissues: Unremarkable. Sinuses: Unremarkable as visualized. No acute sinusitis. Mastoid air cells: Unremarkable as visualized. No mastoid effusion. IMPRESSION: No acute intracranial process or significant alteration when compared to the previous examination. Electronically signed by: Star De León MD 08/09/23 01:12 AM
[2023-08-09] MEDS: FAMOTIDINE 20 MG in SYRINGE 3 ML IV SCH ×2 (02:59→15:00)
[2023-08-09] MEDS: CEFEPIME 1,000 MG in SYRINGE 0 ML IV SCH ×2 (06:05→18:40)
[2023-08-09] MEDS: metroNIDAZOLE 500 MG/100 ML BAG IV SCH ×3 (06:06→22:07)
[2023-08-09 06:48] LABS: BUN Creatinine Ratio 10.9 (10-20); Calcium 8.3 mg/dl (8.6-10.3); Creatinine Clr Calc Pharmacy 15.9 ml/min; Est GFR (African American) 17.8 ml/min; Est GFR (Non-African American) 15.3 ml/min; Magnesium 2.2 mg/dl (1.7-2.4); Phosphorus 3.8 mg/dl (2.5-4.9); Potassium 4.4 mmol/L (3.5-5.1)
[2023-08-09 07:08] LABS: Ferritin 1068.6 ng/ml (8-388)
[2023-08-09] MEDS: SODIUM CHLORIDE 0.45 % 1,000 ML IV SCH (08:00)
--- NOTE | 2023-08-09 08:37 | Nephrology Progress Note ---
Date of Service August 09, 2023 Assessment & Plan (1) Acute kidney injury: Plan: * ATN due to sepsis, contrast induced nephropathy. 07/27/23 renal US was negative for obstruction. Baseline Cr ~ 1.0 * Creatinine remains stable at approximately 4.0. UO 1500 cc last 24 hours. Volume status and electrolyte balance are acceptable. No acute indication for HD today (2) Perforated abdominal viscus: Plan: * Presented with ulcerative pancolitis * s/p Ex lap subtotal colectomy and ileostomy formation 06/28/23 * Found to have multiple abdominal fluid collections/abscesses. * Cultures have grown out pseudomonas, staph aureus, enterococcus faecium and C albicans. Remains on cefepime, daptomycin, metronidazole, and fluconazole. ID following * Last abdominal CT 08/02/23. Consider follow up imaging due to persistent abdominal pain and failure to thrive (3) Acute blood loss anemia: Plan: * Hgb is gradually trending down * Patient likely will not respond to JARRETT due to inflammation * Recommend blood transfusion to maintain Hgb > 7.0 Admission and Anticipated Discharge Date Admission Date: June 28, 2023 Subjective Mr. Deleon was evaluated in his hospital room this morning. His appetite remains poor. He complains of ongoing abdominal discomfort Review of Systems Constitutional: no fever Eyes: no problem reported Ear, Nose, Mouth, Throat: no problem reported Respiratory: no cough and no dyspnea Cardiovascular: no chest pain Gastrointestinal: + abdominal pain and + nausea; no vomiti ng and no diarrhea/loose stools Physical Exam Constitutional: + ill appearing and + cachectic; not in distress Eyes: PERRL, conjunctivae normal, anicteric sclerae ENMT: external ear and nose normal, oropharynx normal Neck: trachea midline, no thyromegaly Respiratory: normal respiratory effort, lungs clear to auscultation Cardiovascular: RRR, no murmur, no edema Rate/Rhythm: regular rate, regular rhythm and + tachycardic Extremities: + edema (trace pretibial pitting edema) Gastrointestinal (Abdomen): Inspection/Auscultation: + hypoactive bowel sounds Neurologic: awake Results & Data Vital Signs (Past 12 Hours) Vital Signs Temp Pulse Pulse Resp BP BP Pulse Ox 08/09/23 07:58 107 H 08/09/23 07:28 36.8 C 119 H 16 144/83 H 92 08/09/23 03:51 136 H 08/09/23 03:48 36.6 C 116 H 18 148/98 H 90 08/09/23 01:26 123 H 148/93 H 94 O2 Del Method 08/09/23 07:58 08/09/23 07:28 Room Air 08/09/23 03:51 08/09/23 03:48 Room Air 08/09/23 01:26 Room Air Laboratory Results Laboratory Results - last 24 hr 08/08/23 08/09/23 08:46 06:09 WBC 5.91 RBC 2.81 L Hgb 7.9 L Hct 25.2 L MCV 89.7 MCH 28.1 MCHC 31.3 L RDW Std Deviation 56.4 H RDW Coeff of Ashley 17.3 H Plt Count 400 MPV 9.7 Sodium 139 139 Potassium 4.2 4.4 Chloride 107 107 Carbon Dioxide 23 23 Anion Gap 9 9 BUN 46 H 45 H Creatinine 4.20 H 4.12 H Est Cr Clr Drug Dosing 15.6 15.9 Est GFR ( Amer) 17.4 17.8 Est GFR (Non-Af Amer) 15.0 15.3 BUN/Creatinine Ratio 11.0 10.9 Glucose 127 H 129 H Calcium 7.8 L 8.3 L Phosphorus 3.8 3.8 Magnesium 2.0 2.2 Iron 40 TIBC 106 L Unsaturated IBC 66 L Transferrin % Sat 38 Ferritin 1068.6 H Triglycerides 204 H PG Care Time/CCT Total # of Minutes Spent Total Time Spent with Patient: Total time spent is greater than 50% in coordination of care (as documented) at patient's floor/unit and/or counseling patient: Coding Level of Care Code 81638 SUB INP/OBS CARE 3/50MIN Diagnoses Acute kidney injury N17.9 Perforated abdominal viscus R19.8 Acute blood loss anemia D62
[2023-08-09] MEDS: PANTOprazole 40 MG in SYRINGE 0 ML IV SCH ×2 (10:34→22:06)
[2023-08-09] MEDS: THIAMINE HCL 100 MG in SYRINGE 9 ML IV SCH (10:34)
[2023-08-09] MEDS: amLODIPine BESYLATE 5 MG TAB PO SCH (10:35)
[2023-08-09] MEDS: HEPARIN SOD 5,000 UNIT/0.5 ML VIAL SQ SCH ×3 (10:35→22:23)
[2023-08-09] MEDS: METOCLOPRAMIDE HCL 5 MG TABLET PO SCH ×4 (10:35→22:04)
--- NOTE | 2023-08-09 13:52 | Pharmacy Report ---
Pharmacy PN Follow-up Note - Date of Service August 07, 2023 - Subjective Patient is currently on day #4 of TPN for severe malnutrition. - Objective Height & Weight (Last Documented) Height 5 ft 9 in Weight 53.9 kg Diet Order(s) 08/03/23 Lunch Diet Intake & Ouput (24hrs) 08/06/23 08/07/23 08/08/23 06:59 06:59 06:59 Intake Total 3026.939 / 3026.939 3270.333 / 3270.333 225 / 225 Output Total 1500 / 1500 1575 / 1575 500 / 500 Balance 1526.939 / 8209.737 6031.333 / 1695.333 -275 / -275 Selected Laboratory Results 08/07/23 08:35 Sodium 138 Potassium 3.8 Chloride 107 Carbon Dioxide 24 Anion Gap 7 BUN 38 H Creatinine 4.02 H Est GFR ( Amer) 18.3 Est GFR (Non-Af Amer) 15.8 BUN/Creatinine Ratio 9.5 L Glucose 131 H Calcium 7.5 L Phosphorus 3.8 Magnesium 1.9 - Assessment & Plan Assessment: * Remains on lipids three times per week (MoWeFr). * Electrolytes all within normal limits. * Thiamine, Protonix, and Pepcid all being supplemented outside of the bag. Plan: * For Day #4 of TPN administration, the following will be ordered: * Macronutrients: * Amino Acids: 58 grams/day * Dextrose: 101 grams/day * Lipids: None * Micronutrients: * Sodium chloride: 40 mEq/day * Sodium acetate: 60 mEq/day * Potassium phosphate: 15 mMol/day * Potassium acetate: 50 mEq/day * Magnesium sulfate: 8.12 mEq/day * Multivitamins: 10 mL/day * Trace elements: 1 mL/day * Total volume of 809 mL will be infused over 24 hours and will provide 573 kcal/day * Labs will be ordered per PN protocol. * Pharmacy will follow and adjust PN orders on a daily basis. Thank you!
--- NOTE | 2023-08-09 13:52 | Pharmacy Report ---
Pharmacy Initial PN Consult Nt - Date of Service August 04, 2023 - Scope Pharmacy has been consulted on this date to manage parenteral nutrition orders and order appropriate labs. As part of the Nutrition Support Team Guidelines, pharmacy will work in conjunction with dietary when determining the patients caloric needs. - Subjective * The patient is a 53 year old Male admitted on 06/28/23 for PERFORATED BOWEL. * Patient is to receive parenteral nutrition for severe malnutrition secondary to complicated GI history (see below). * Pertinent PMHx: Ulcerative pancolitis s/p subtotal colectomy w/ ileostomy (06/28/23), perforated abdominal viscus w/ persistent intra-abdominal abscess, acute kidney injury - Objective Vascular Access: * Patient currently has a central (PICC) line. Height & Weight (Last Documented) Height 5 ft 9 in Weight 51.6 kg Diet Order(s) 08/03/23 Lunch Diet Intake & Ouput (24hrs) 08/03/23 08/04/23 08/05/23 06:59 06:59 06:59 Intake Total 3093.333 / 3093.333 2665.500 / 2665.500 100 / 100 Output Total 950 / 950 2160 / 2160 Balance 2143.333 / 2143.333 505.500 / 505.500 100 / 100 Selected Laboratory Results 08/04/23 07:49 Sodium 143 Potassium 3.6 Chloride 112 H Carbon Dioxide 25 Anion Gap 6 BUN 24 H Creatinine 3.87 H Est GFR ( Amer) 19.2 Est GFR (Non-Af Amer) 16.5 BUN/Creatinine Ratio 6.2 L Glucose 120 H Calcium 7.6 L Phosphorus 3.3 Magnesium 1.8 Total Bilirubin 0.3 AST 15 ALT 9 Alkaline Phosphatase [address] - Follow Up Nutrition Assessment Start: 06/29/23 10:35 Freq: Status: Active Protocol: Document 08/03/23 16:54 WN (Rec: 08/03/23 17:03 WN [id number]) RD - Initial Nutrition Assessment Start: 06/29/23 10:22 Freq: Status: Active Protocol: Document 06/29/23 10:22 WN (Rec: 06/29/23 10:34 WN [id number]) - Assessment & Plan Assessment: * Appreciate dietitians recommendations for macronutrients. * Triglycerides elevated at 171 mg/dL (discussed with dietary and will order lipids Wednesday, Wednesday, and Wednesday w/ lab recheck on Wednesday08/09/23) * Electrolytes largely WNL except for chloride, which has been persistently elevated (112 mEq/mL) - will favor acetate > chloride in today's bag * Discussed IV fluids/total volume with nephrology. Will utilize goal daily volume of 2-2.5 L and will utilize 1/2 NSS to q.s. to goal daily volume. Today's TPN + IV fluids to provide ~2350 mL. Plan: * For Day #1 of TPN administration, the following will be ordered: * Macronutrients: * Amino Acids: 58 grams/day * Dextrose: 101 grams/day * Lipids: 50 grams/day on Wednesday, Wednesday, and Wednesday * Micronutrients: * Sodium acetate: 60 mEq/day * Potassium phosphate: 30 mMol/day * Potassium acetate: 30 mEq/day * Magnesium sulfate: 8.12 mEq/day * Multivitamins: 10 mL/day * Trace elements: 1 mL/day * Thiamine: 100 mg/day * Folic Acid: 1 mg/day * Total volume of 789 mL will be infused over 24 hours and will provide 1073 k kevin/day * Labs will be ordered per PN protocol. * Pharmacy will follow and adjust PN orders on a daily basis. Thank you!
[2023-08-09] MEDS ORDERED: [UNRECOGNIZED DRUG - OTHER] IV SCH (16:00)
[2023-08-09] MEDS ORDERED: CENTRAL TPN IV SCH (16:00)
--- NOTE | 2023-08-09 17:09 | Hospitalist Progress Note ---
Date of Service August 09, 2023 Assessment & Plan (1) Perforated abdominal viscus: Plan: Patient with recent diagnosis of Ulcerative pancolitis, and had sessile polyp biopsied along with other biopsies on a colonoscopy during previous admission. Presented with free air, to OR 06/28/23 with subtotal colon resection with rectal stump remaining, and ileostomy. Three areas of perforation were identified, abscess and feculent material seen. Pseudomonas, Staphylococcus aureus, and Enterococcus faecium as well as Mariely albicans isolated. RUQ drain has been removed. IR drain remains and continues to drain in LUQ manipulated on 07/23/[address] scan 07/19 shows persistent fluid collections consistent with abscess 07/23/2023 shows a leukocytosis hence the drain manipulation Repeat abdominal CT on 08/02 with improving size and multiple abscesses but still one that is large 9 cm- discussed with IR not possible as drain additional larger pocket as loculated other pockets too small Wound vac remains in place over LLQ and being changed every 3 days Leukocytosis resolved, remains afebrile P.o. intake remains extremely poor-dietary following. SPeech saw and said no problems with swallowing--> prealbumin low, TGs mildly high, phos replete GI consult 08/03--> recommended no EGD, start PPI bid, check H. pylori, start phenergan prn Attempted barium swallow to assess for obstruction given frequent vomiting--> he could not drink barium KUB 07/31 no obstruction ECG no prolonged QT while on diflucan Appreciate infectious disease recommendations -continue daptomycin, cefepime, renally adjusted fluconazole through 08/30/23 w/ reevaluation for likely extension with CT abd/pel prior to that around 08/16- 08/23 to see if needs further IR drainage or drain manipulation -continue metronidazole 500mg bid through 08/10/23 -started Remeron 7.5mg po hs for appetite stimulant and in case depression causing poor appetite reglan scheduled for post prandial nausea -Check CK once weekly (next 08/10) while on daptomycin, follow CBC, BMP -started TPN 08/04 given severe malnutrition -gave 6 doses of IV thiamine high-dose to prevent Wernicke encephalopathy in case of deficiency given severe malnutrition while on D5-revert back to 100mg daily Ordered CT abdomen today since the patient has abdominal pain. CT abdomen was completed at 11:30 AM however it has not been officially read yet. Awaiting report. (2) Acute kidney injury: Plan: First noted 07/25-maybe atn due to poor po intake, ain from meds not likely as no WBCs on UA, could be OSWALDO from CT scans and ATN from infection Creatinine rising out of porpotion to BUN. Creatinine stable at 4 for the last 3 days But today 4.12. Not volume overloaded, K+ ok, acidosis now improved with bicab gtt which is now stopped Nonoliguric, no indication for HD today US suggest debris in bladder, thickened bladder wall but no obstruction, but shows MRD UA with protein and blood, no casts, nephrology consultation 24-hour urine with 850mg protein urine culture from 07/27 negative for infection Complements sent by nephrology negative -continue 09/14 NSS+ K -Follow BMP -Appreciate nephrology consultation -Follow urine output Although patient does not have overt electrolyte imbalances like metabolic acidosis or hyperkalemia, he is starting to show signs of asterixis which may be a sign of uremic encephalopathy. Nephrology on board. Will monitor. (3) Acute blood loss anemia: Plan: Postoperatively. No bleeding noted from anywhere stable hgb at 8-9 B12, folate, iron studies normal TSH mildly elevated and free T4 mildly low-follow likely from chronic disease follow CBC (4) Hard of hearing: Plan: Supportive care, wears hearing device (5) Encephalopathy: Plan: Acute encephalopathy, probably metabolic. Now resolved. Continue supportive care. Head CT scan negative. Patient does not appear to be confused overtly or comatose. But per stationary engineer apprentice, he is getting more drowsy and sleeping more every day. However he may be starting with uremic encephalopathy with asterixis noted today. (6) Ulcerative colitis: Plan: Patient with ulcerative colitis diagnosed by colonoscopy in 06/2023 Now status post subtotal colectomy with only rectal stump remaining No treatment needed at this point but will need continued surveillance for colo rectal CA of the rectal stump Will need follow-up with GI as an outpatient Plan Dispo-continued stay Extensive discussion with the usp system -current plan in place to be the patient returns to the usp when medically stable Patient will then have supplies to continue antibiotic care at [place] but with eventual transition to [facility] usp system which is a more robust medical facility Admission and Anticipated Discharge Date Admission Date: June 28, 2023 Subjective per stationary engineer apprentice in the room, patient has been sleeping more and more every day. He slept all morning today. He wakes up with verbal stimuli Review of Systems Review of Systems: All systems reviewed & are unremarkable except as noted in Subjective Physical Exam Physical Exam: General: Sleeping, arousable. Able to converse when he wakes up. Asterixis noted bilaterally. Heart: S1, S2/regular rate and rhythm, no murmur rubs or gallops Lungs: Clear to auscultation bilaterally. Normal effort Abdomen: Soft/nondistended. Tenderness to palpation in the abdomen diffusely. No hepatosplenomegaly. Colostomy bag in place. Left upper quadrant drain catheter in place. Extremities: No clubbing/cyanosis. Trace bilateral edema Behavior: Appropriate, cooperative Results & Data Results & Data Vital Signs (Past 12 Hours) Vital Signs Temp Pulse Pulse Resp BP Pulse Ox O2 Del Method 08/09/23 15:50 36.8 C 123 H 18 135/97 87 L Room Air 08/09/23 11:05 36.7 C 118 H 18 143/92 H 92 Room Air 08/09/23 07:58 107 H 08/09/23 07:28 36.8 C 119 H 16 144/83 H 92 Room Air Laboratory Results Abnormal lab results 08/09/23 Range/Units 06:09 BUN 45 H (6-23) mg/dl Creatinine 4.12 H (0.6-1.4) mg/dl Glucose 129 H (70-99(Fasting)) mg/dl Calcium 8.3 L (8.6-10.3) mg/dl TIBC 106 L (250-450) mcg/dl Unsaturated IBC 66 L (155-355) mcg/dl Ferritin 1068.6 H (8-388) ng/ml Triglycerides 204 H (0-150) mg/dl PG Care Time/CCT Total # of Minutes Spent Total Time Spent with Patient: Total time spent is greater than 50% in coordination of care (as documented) at patient's floor/unit and/or counseling patient: Coding Level of Care Code 91158 SUB INP/OBS CARE MIN Diagnoses Perforated abdominal viscus R19.8 Acute kidney injury N17.9 Acute blood loss anemia D62 Bilateral hearing loss, unspecified hearing loss type H91.93 Hearing loss type: unspecified Laterality: bilateral Encephalopathy G93.40 Ulcerative pancolitis with abscess K51.014 Ulcerative colitis location: ulcerative pancolitis Digestive disease complication type: with abscess (4) Hard of hearing Hearing loss type: unspecified Laterality: bilateral Qualified Code(s): H91.93 - Unspecified hearing loss, bilateral (6) Ulcerative colitis Ulcerative colitis location: ulcerative pancolitis Digestive disease complication type: with abscess Qualified Code(s): K51.014 - Ulcerative (chronic) pancolitis with abscess
--- NOTE | 2023-08-09 19:35 | Electrocardiogram Report ---
Test Reason : Blood Pressure : / mmHG Vent. Rate : 124 BPM Atrial Rate : 124 BPM P-R Int : 128 ms QRS Dur : 080 ms QT Int : 326 ms P-R-T Axes : 068 -02 235 degrees QTc Int : 468 ms Sinus tachycardia Nonspecific ST and T wave abnormality Abnormal ECG When compared with ECG of 03-AUG-2023 15:49, Vent. rate has increased BY 46 BPM Nonspecific T wave abnormality now evident in Inferior leads Nonspecific T wave abnormality now evident in Anterolateral leads Confirmed by Prince Nails ([id number]) on 08/09/2023 7:35:24 PM Referred By: [facility] Confirmed By:Franklyn Nails
--- NOTE | 2023-08-09 19:44 | CT Scan Report ---
CT OF THE ABDOMEN AND PELVIS WITHOUT CONTRAST CLINICAL HISTORY: follow-up abscesses COMPARISON STUDY: CT of the abdomen and pelvis August 02, 2023. TECHNIQUE: Axial images of the abdomen and pelvis were obtained without IV contrast. Images were revi ewed in the axial, sagittal, and coronal planes. Automated exposure control was utilized for the kris dy. A dose lowering technique was utilized adhering to the principles of ALARA. FINDINGS: Bilateral pleural effusions, left larger than right, have increased in size since CT of Jul. The left pleural effusion is moderate-sized. The right is small to moderate. No pneum atosis, free air or portal venous gas is present. Evaluation of the abdomen and pelvis is suboptimal on this unenhanced exam. The left upper quadrant perisplenic fluid collection contains gas and a surg ical drain, as before. This collection is similar in size to CT of August 02, 2023. This measures 9 .3 x 5.5 cm. The additional smaller fluid collections within the abdomen and pelvis have slightly dec reased in size since prior CT. A pelvic fluid collection on image 265 measures 4 x 1.2 cm. Small righ t retroperitoneal fluid collections are similar to prior CT. No new fluid collections are present. Th ere is no evidence for a bowel obstruction status post subtotal colectomy right lower quadrant ileost darci. Anasarca has increased. There is no hydronephrosis. Presacral edema is likely related to volume overload. Mesenteric edema is also likely related to volume overload. No biliary or pancreatic ductal dilatation is present. Pancreatic parenchymal calcifications are again noted. Gastric wall thickenin g is noted. This is been shown on prior exams. IMPRESSION: 1. No significant change in size of the left upper quadrant fluid and gas containing collection since CT of August 02, 2023. This contains a percutaneous drain. 2. Otherwise, the remainder of the smaller abdominal and pelvic fluid collections have decreased in s ize since prior CT. No new fluid collections. 3. Increase in the moderate left and [id number] right pleural effusions. Associated airspace o pacities favor atelectasis. 4. Increase in anasarca. 5. No evidence for a bowel obstruction status post subtotal colectomy and right lower quadrant ileost darci. 6. Gastric fold thickening which has been shown on prior studies. This may reflect gastritis. ACT 112: Negative or not required by law. Electronically signed by: Andres Amanda M.D. 08/09/2023 7:42 PM
[2023-08-09] MEDS ORDERED: STOP CLINOLIPID SCH (22:00)
[2023-08-09] MEDS: MIRTAZAPINE TAB 15 MG TAB PO SCH (22:04)
[2023-08-09] MEDS: FLUCONAZOLE 200 MG/100 ML BAG IV SCH (22:07)
[2023-08-10] MEDS: SODIUM CHLORIDE 0.45 % 1,000 ML IV SCH (04:42)
[2023-08-10] MEDS: CEFEPIME 1,000 MG in SYRINGE 0 ML IV SCH (04:50)
[2023-08-10] MEDS: metroNIDAZOLE 500 MG/100 ML BAG IV SCH ×3 (04:50→21:37)
[2023-08-10] MEDS: FAMOTIDINE 20 MG in SYRINGE 3 ML IV SCH ×2 (05:22→16:45)
[2023-08-10 06:43] LABS: BUN Creatinine Ratio 11.2 (10-20); Calcium 7.5 mg/dl (8.6-10.3); Creatinine Clr Calc Pharmacy 16.6 ml/min; Est GFR (Non-African American) 14.6 ml/min; Magnesium 2.1 mg/dl (1.7-2.4); Phosphorus 3.6 mg/dl (2.5-4.9); Potassium 4.6 mmol/L (3.5-5.1)
[2023-08-10] MEDS ORDERED: INFLUENZA VIRUS QUADRIVALENT VACCINE (IIV4) 0.5 ML SYR IM ONE (07:30)
[2023-08-10] MEDS: METOCLOPRAMIDE HCL 5 MG TABLET PO SCH ×4 (08:00→21:37)
--- NOTE | 2023-08-10 08:35 | Nephrology Progress Note ---
Date of Service August 10, 2023 Assessment & Plan (1) Acute kidney injury: Plan: * ATN due to sepsis, contrast induced nephropathy. 07/27/23 renal US was negative for obstruction. Baseline Cr ~ 1.0 * Creatinine remains stable at approximately 4.0. UO 900 cc last 24 hours. Volume status and electrolyte balance are acceptable. No acute indication for HD today (2) Perforated abdominal viscus: Plan: * Presented with ulcerative pancolitis * s/p Ex lap subtotal colectomy and ileostomy formation 06/28/23 * Found to have multiple abdominal fluid collections/abscesses. * Cultures have grown out pseudomonas, staph aureus, enterococcus faecium and C albicans. Remains on cefepime, daptomycin, metronidazole, and fluconazole. ID following * Last abdominal CT 08/02/23. Consider follow up imaging due to persistent abdominal pain and failure to thrive (3) Acute blood loss anemia: Plan: * Hgb is gradually trending down * Patient likely will not respond to JARRETT due to inflammation * Recommend blood transfusion to maintain Hgb > 7.0 Admission and Anticipated Discharge Date Admission Date: June 28, 2023 Subjective Mr. Deleon was evaluated in his hospital room this morning. His appetite remains poor. He voiced no medical concerns but appeared despondent Review of Systems Constitutional: no fever Eyes: no problem reported Ear, Nose, Mouth, Throat: no problem reported Respiratory: no cough and no dyspnea Cardiovascular: no chest pain Gastrointestinal: + abdominal pain and + nausea; no vomiti ng and no diarrhea/loose stools Physical Exam Constitutional: + ill appearing and + cachectic; not in distress Eyes: PERRL, conjunctivae normal, anicteric sclerae ENMT: external ear and nose normal, oropharynx normal Neck: trachea midline, no thyromegaly Respiratory: normal respiratory effort, lungs clear to auscultation Cardiovascular: RRR, no murmur, no edema Rate/Rhythm: regular rate, regular rhythm and + tachycardic Extremities: + edema (trace pretibial pitting edema) Gastrointestinal (Abdomen): Inspection/Auscultation: + hypoactive bowel sounds Neurologic: awake Results & Data Vital Signs (Past 12 Hours) Vital Signs Temp Pulse Pulse Resp BP Pulse Ox O2 Del Method 08/10/23 08:04 36.5 C 114 H 16 133/94 92 Nasal Cannula 08/10/23 07:59 117 H 08/10/23 03:51 36.6 C 120 H 14 140/97 92 Nasal Cannula 08/09/23 23:25 36.7 C 121 H 16 140/90 94 Nasal Cannula 08/09/23 23:00 Nasal Cannula 08/09/23 22:00 113 H O2 Flow Rate 08/10/23 08:04 3 08/10/23 07:59 08/10/23 03:51 3 08/09/23 23:25 4 08/09/23 23:00 4 08/09/23 22:00 Laboratory Results Laboratory Results - last 24 hr 08/10/23 05:45 Sodium 140 Potassium 4.6 Chloride 109 H Carbon Dioxide 23 Anion Gap 8 BUN 48 H Creatinine 4.28 H Est Cr Clr Drug Dosing 16.6 Est GFR ( Amer) 17.0 Est GFR (Non-Af Amer) 14.6 BUN/Creatinine Ratio 11.2 Glucose 133 H Calcium 7.5 L Phosphorus 3.6 Magnesium 2.1 Diagnostic Findings 08/09/[address]: 1. No significant change in size of the left upper quadrant fluid and gas containing collection since CT of August 02, 2023. This contains a percutaneous drain. 2. Otherwise, the remainder of the smaller abdominal and pelvic fluid collections have decreased in size since prior CT. No new fluid collections. 3. Increase in the moderate left and [id number] right pleural effusions. Associated airspace opacities favor atelectasis. 4. Increase in anasarca. 5. No evidence for a bowel obstruction status post subtotal colectomy and right lower quadrant ileostomy. 6. Gastric fold thickening which has been shown on prior studies. This may reflect gastritis. PG Care Time/CCT Total # of Minutes Spent Total Time Spent with Patient: Total time spent is greater than 50% in coordination of care (as documented) at patient's floor/unit and/or counseling patient: Coding Level of Care Code 07166 SUB INP/OBS CARE 3/50MIN Diagnoses Acute kidney injury N17.9 Perforated abdominal viscus R19.8 Acute blood loss anemia D62
[2023-08-10] MEDS: THIAMINE HCL 100 MG in SYRINGE 9 ML IV SCH (10:19)
[2023-08-10] MEDS: PANTOprazole 40 MG in SYRINGE 0 ML IV SCH ×2 (10:20→21:37)
[2023-08-10] MEDS: amLODIPine BESYLATE 5 MG TAB PO SCH (10:20)
[2023-08-10] MEDS: HEPARIN SOD 5,000 UNIT/0.5 ML VIAL SQ SCH ×2 (10:21→21:39)
--- NOTE | 2023-08-10 12:52 | XRay Report ---
SINGLE VIEW CHEST CLINICAL HISTORY: Congestive heart failure. FINDINGS: An AP, portable, upright chest radiograph is compared to study dated 07/01/2023. The examin ation is degraded by portable technique and patient rotation. The right PICC line seen on 07/01/2023 has been removed. A left PICC line has been placed. The tip of the catheter projects over the right a trium just above the level of the diaphragm. The heart is enlarged. There is pulmonary vascular conge stion with evidence of interstitial edema. There are low small pleural effusions, left larger than ri ght with dependent consolidation No pneumothorax is seen. The skeletal structures are osteopenic. The bony thorax is grossly intact. IMPRESSION: 1. Cardiomegaly with evidence of congestive failure and pulmonary edema. 2. Left larger than right pleural effusions with dependent consolidation. 3. A left PICC line is in place as above. The tip projects over the right atrium. ACT 112: Negative or not required by law. Electronically signed by: Hu Suarez M.D. 08/10/2023 12:51 PM
[2023-08-10] MEDS ORDERED: [UNRECOGNIZED DRUG - OTHER] IV SCH (16:00)
[2023-08-10] MEDS ORDERED: CENTRAL TPN IV SCH (16:00)
--- NOTE | 2023-08-10 16:20 | Hospitalist Progress Note ---
Date of Service August 10, 2023 Assessment & Plan (1) Perforated abdominal viscus: Plan: Patient with recent diagnosis of Ulcerative pancolitis, and had sessile polyp biopsied along with other biopsies on a colonoscopy during previous admission. Presented with free air, to OR 06/28/23 with subtotal colon resection with rectal stump remaining, and ileostomy. Three areas of perforation were identified, abscess and feculent material seen. Pseudomonas, Staphylococcus aureus, and Enterococcus faecium as well as Mariely albicans isolated. RUQ drain has been removed. IR drain remains and continues to drain in LUQ manipulated on 07/23/[address] scan 07/19 shows persistent fluid collections consistent with abscess 07/23/2023 shows a leukocytosis hence the drain manipulation Repeat abdominal CT on 08/02 with improving size and multiple abscesses but still one that is large 9 cm- discussed with IR not possible as drain additional larger pocket as loculated other pockets too small Wound vac remains in place over LLQ and being changed every 3 days Leukocytosis resolved, remains afebrile P.o. intake remains extremely poor-dietary following. SPeech saw and said no problems with swallowing--> prealbumin low, TGs mildly high, phos replete GI consult 08/03--> recommended no EGD, start PPI bid, check H. pylori, start phenergan prn Attempted barium swallow to assess for obstruction given frequent vomiting--> he could not drink barium KUB 07/31 no obstruction ECG no prolonged QT while on diflucan Appreciate infectious disease recommendations -continue daptomycin, renally adjusted fluconazole through 08/30/23 w/ reevaluation for likely extension with CT abd/pel prior to that around 08/16- 08/23 to see if needs further IR drainage or drain manipulation Switch cefepime to IV Zosyn due to concern for cefepime induced neurotoxicity. Patient is getting increasingly lethargic. spoke to infectious disease and nephrology who are both okay with the switch -continue metronidazole 500mg bid through 08/10/23 -started Remeron 7.5mg po hs for appetite stimulant and in case depression causing poor appetite reglan scheduled for post prandial nausea -Check CK once weekly ( Ordered 08/10) while on daptomycin, follow CBC, BMP -started TPN 08/04 given severe malnutrition -gave 6 doses of IV thiamine high-dose to prevent Wernicke encephalopathy in case of deficiency given severe malnutrition while on D5-revert back to 100mg daily CT abdomen unremarkable (2) Acute kidney injury: Plan: First noted 07/25-maybe atn due to poor po intake, ain from meds not likely as no WBCs on UA, could be OSWALDO from CT scans and ATN from infection Creatinine rising out of porpotion to BUN. Creatinine stable at 4 for the last 3 days But today 4.12. Not volume overloaded, K+ ok, acidosis now improved with bicab gtt which is now stopped Nonoliguric, no indication for HD today US suggest debris in bladder, thickened bladder wall but no obstruction, but shows MRD UA with protein and blood, no casts, nephrology consultation 24-hour urine with 850mg protein urine culture from 07/27 negative for infection Complements sent by nephrology negative -continue 09/14 NSS+ K -Follow BMP -Appreciate nephrology consultation -Follow urine output Although patient does not have overt electrolyte imbalances like metabolic acidosis or hyperkalemia, he is starting to show signs of asterixis which may be a sign of uremic encephalopathy. Nephrology on board. Will monitor. (3) Acute blood loss anemia: Plan: Postoperatively. No bleeding noted from anywhere stable hgb at 8-9 B12, folate, iron studies normal TSH mildly elevated and free T4 mildly low-follow likely from chronic disease follow CBC (4) Hard of hearing: Plan: Supportive care, wears hearing device (5) Encephalopathy: Plan: Acute encephalopathy, probably metabolic. Now resolved. Continue supportive care. Head CT scan negative. Patient does not appear to be confused overtly or comatose. But per substitute crossing guard, he is getting more drowsy and sleeping more every day. However he may be starting with uremic encephalopathy with asterixis noted today. Discontinue cefepime due to its neurotoxicity Switch to IV Zosyn (6) Ulcerative colitis: Plan: Patient with ulcerative colitis diagnosed by colonoscopy in 06/2023 Now status post subtotal colectomy with only rectal stump remaining No treatment needed at this point but will need continued surveillance for colorectal CA of the rectal stump Will need follow-up with GI as an outpatient Plan Dispo-continued stay Extensive discussion with the care home system -current plan in place to be the patient returns to the care home when medically stable Patient will then have supplies to continue antibiotic care at [facility] but with eventual transition to [facility] care home system which is a more robust medical facility Admission and Anticipated Discharge Date Admission Date: June 28, 2023 Subjective patient has no major complaints. Per care home guards, he is being increasingly lethargic, sleeping more. Review of Systems Review of Systems: All systems reviewed & are unremarkable except as noted in Subjective Physical Exam Physical Exam: General: Sleeping, arousable. Able to converse when he wakes up. Heart: S1, S2/regular rate and rhythm, no murmur rubs or gallops Lungs: Clear to auscultation bilaterally. Normal effort Abdomen: Soft/nondistended. Tenderness to palpation in the abdomen diffusely. No hepatosplenomegaly. Colostomy bag in place. Left upper quadrant drain catheter in place. Extremities: No clubbing/cyanosis. Trace bilateral edema Behavior: Appropriate, cooperative Results & Data Results & Data Vital Signs (Past 12 Hours) Vital Signs Temp Pulse Pulse Pulse Resp BP Pulse Ox 08/10/23 15:52 36.4 C L 121 H 16 139/88 94 08/10/23 11:23 37.0 C 122 H 16 129/94 95 08/10/23 08:04 36.5 C 114 H 16 133/94 92 08/10/23 08:00 08/10/23 07:59 117 H O2 Del Method O2 Flow Rate 08/10/23 15:52 Nasal Cannula 3 08/10/23 11:23 Nasal Cannula 3 08/10/23 08:04 Nasal Cannula 3 08/10/23 08:00 Nasal Cannula 4 08/10/23 07:59 PG Care Time/CCT Total # of Minutes Spent Total Time Spent with Patient: Total time spent is greater than 50% in coordination of care (as documented) at patient's floor/unit and/or counseling patient: Coding Level of Care Code 40512 SUB INP/OBS CARE 2/35MIN Diagnoses Perforated abdominal viscus R19.8 Acute kidney injury N17.9 Acute blood loss anemia D62 Bilateral hearing loss, unspecified hearing loss type H91.93 Hearing loss type: unspecified Laterality: bilateral Encephalopathy G93.40 Ulcerative pancolitis with abscess K51.014 Ulcerative colitis location: ulcerative pancolitis Digestive disease complication type: with abscess (4) Hard of hearing Hearing loss type: unspecified Laterality: bilateral Qualified Code(s): H91.93 - Unspecified hearing loss, bilateral (6) Ulcerative colitis Ulcerative colitis location: ulcerative pancolitis Digestive disease complication type: with abscess Qualified Code(s): K51.014 - Ulcerative (chronic) pancolitis with abscess
[2023-08-10] MEDS ORDERED: PIPER/TAZO 4.5g in D5W MINI-B 100 ML IV ONE (17:45)
[2023-08-10] MEDS: FLUCONAZOLE 200 MG/100 ML BAG IV SCH (21:39)
[2023-08-10] MEDS: MIRTAZAPINE TAB 15 MG TAB PO SCH (21:51)
[2023-08-10] MEDS: ACETAMINOPHEN 325 MG TAB PO PRN (22:09)
[2023-08-10] MEDS ORDERED: METOPROLOL TARTRATE 1 MG/ML VIAL IV STA (22:44)
[2023-08-11] MEDS: PIPERACILLIN/TAZOBACTAM 4.5 GM in DEXTROSE 5% MINI-B 100 ML IV SCH ×2 (03:56→16:10)
[2023-08-11] MEDS: FAMOTIDINE 20 MG in SYRINGE 3 ML IV SCH ×2 (03:57→16:15)
[2023-08-11 04:06] LABS: Base Excess VBG 0.1 mEq/L; HCO3 VBG 24 mmol/L; Oxygen Saturation VBG < 60.0 %; PCO2 VBG 34 mmHg (38-50); PO2 VBG 34 mmHg; pH VBG 7.45 (7.36-7.41)
[2023-08-11 04:23] LABS: Hematocrit (blood only) 23.9 % (42.0-52.0); Hemoglobin 7.5 g/dl (14.0-18.0); Mean Corpuscular Hemoglobin 28.6 pg (25.0-34.0); Mean Corpuscular Hgb Conc 31.4 g/dL (32.0-36.0); Mean Corpuscular Volume 91.2 fL (80.0-100.0); Mean Platelet Volume 9.8 fL (9.4-12.4); Platelet Count 456 K/uL (130-400); RDW Coefficient of Variation 17.7 % (11.5-14.5); RDW Standard Deviation 58.4 fL (36.4-46.3); Red Blood Count 2.62 M/uL (4.70-6.10); White Blood Count 14.97 K/ul (4.8-10.8)
[2023-08-11 04:52] LABS: Basophils # (auto) 0.02 K/uL (0.00-0.20); Basophils % (auto) 0.1 %; Eosinophils # (auto) 0.04 K/uL (0.00-0.50); Eosinophils % (auto) 0.3 %; Immature Granulocytes # (auto) 0.07 K/uL (0.01-0.20); Immature Granulocytes % (auto) 0.5 %; Lymphocytes # (auto) 0.36 K/uL (1.20-3.40); Lymphocytes % (auto) 2.4 %; Monocytes # (auto) 0.78 K/uL (0.11-0.59); Monocytes % (auto) 5.2 %; Neutrophils % (auto) 91.5 %; RBC Morphology Unremarkable
[2023-08-11 04:56] LABS: Albumin Globulin Ratio 0.6 (0.9-2); Albumin Level 2.3 gm/dl (3.4-5.0); BUN Creatinine Ratio 12.7 (10-20); Bilirubin,Total 0.6 mg/dl (0.2-1.0); Calcium 7.8 mg/dl (8.6-10.3); Creatinine Clr Calc Pharmacy 15.5 ml/min; Est GFR (African American) 15.7 ml/min; Est GFR (Non-African American) 13.5 ml/min; Globulin 3.6 gm/dl (2.5-4.0); Magnesium 2.2 mg/dl (1.7-2.4); Potassium 4.9 mmol/L (3.5-5.1); Total Protein 5.9 gm/dl (6.0-8.3)
[2023-08-11] MEDS ORDERED: FUROSEMIDE 40 MG/4 ML VIAL IV ONE (05:00)
[2023-08-11] MEDS: metroNIDAZOLE 500 MG/100 ML BAG IV SCH (06:32)
--- NOTE | 2023-08-11 06:33 | XRay Report ---
XR chest 1V portable CLINICAL HISTORY: Increased O2 requirement COMPARISON STUDY: Chest CT June 17, 2023. Chest radiograph August 10, 2023. FINDINGS: A left PICC is in place. There is no pneumothorax. Moderate left and right pleural effusion s are present. Left pleural effusion has slightly increased in size. Pulmonary edema has slightly pro gressed. Persistent perihilar and bibasilar opacities are likely related to pulmonary edema or atelec tasis. IMPRESSION: 1. Moderate left pleural effusion, slightly increased in size. Small right pleural effusion. 2. Progression of pulmonary edema. 3. Perihilar and bibasilar opacities are likely related to alveolar edema and atelectasis. ACT 112: Negative or not required by law. Electronically signed by: Andres Amanda M.D. 08/11/2023 6:31 AM
[2023-08-11] MEDS: THIAMINE HCL 100 MG in SYRINGE 9 ML IV SCH (08:25)
[2023-08-11] MEDS: HEPARIN SOD 5,000 UNIT/0.5 ML VIAL SQ SCH ×3 (08:25→20:56)
[2023-08-11] MEDS: PANTOprazole 40 MG in SYRINGE 0 ML IV SCH ×2 (08:25→22:29)
[2023-08-11] MEDS: amLODIPine BESYLATE 5 MG TAB PO SCH ×2 (08:30→08:31)
--- NOTE | 2023-08-11 08:48 | Nephrology Progress Note ---
Date of Service August 11, 2023 Assessment & Plan (1) Acute kidney injury: Plan: * ATN due to sepsis, contrast induced nephropathy. 07/27/23 renal US was negative for obstruction. Baseline Cr ~ 1.0 * Creatinine has risen to 4.5. UO 800 cc last 24 hours. Patient has now developed signs of volume overload. Electrolyte balance remains acceptable * Will provide second dose IV Bumex 2 mg at 1500 hours * Monitor I&O, PRP * JAY has been held due to volume overload (2) Perforated abdominal viscus: Plan: * Presented with ulcerative pancolitis * s/p Ex lap subtotal colectomy and ileostomy formation 06/28/23 * Found to have multiple abdominal fluid collections/abscesses. * Cultures have grown out pseudomonas, staph aureus, enterococcus faecium and C albicans. Remains on piperacillin/tazobactam, metronidazole, and fluconazole. ID following. Cefepime stopped due to lethargy/delerium * 08/09/[address]: LUQ fluid collection unchanged, drain in place. Remainder of smaller fluid collections have decreased in size. Moderate bilateral effusions. No bowel obstruction (3) Acute blood loss anemia: Plan: * Hgb is gradually trending down * Patient likely will not respond to JARRETT due to inflammation * Recommend blood transfusion to maintain Hgb > 7.0 Admission and Anticipated Discharge Date Admission Date: June 28, 2023 Subjective Mr. Deleon was evaluated in his hospital room this morning. He developed dyspnea overnight requiring and required titration of oxygen. He is currently on O2 FM at 15L/min. CXR this am shows progressive CHF. 40 mg IV Furosemide was administered last evening and additional 2 mg IV Bumex given this morning by primary service. Patient is being transferred to PCU for monitoring and NIPPV if needed Review of Systems Constitutional: no fever Eyes: no problem reported Ear, Nose, Mouth, Throat: no problem reported Respiratory: no cough and no dyspnea Cardiovascular: no chest pain Gastrointestinal: + abdominal pain and + nausea; no vomiti ng and no diarrhea/loose stools Physical Exam Constitutional: + ill appearing and + cachectic; not in distress Eyes: PERRL, conjunctivae normal, anicteric sclerae ENMT: external ear and nose normal, oropharynx normal Neck: trachea midline, no thyromegaly Respiratory: Auscultation: + rales (at bases bilaterally) Cardiovascular: Rate/Rhythm: regular rhythm and + tachycardic Extremities: + edema (trace pretibial pitting edema) Gastrointestinal (Abdomen): Inspection/Auscultation: + hypoactive bowel sounds Neurologic: awake Results & Data Vital Signs (Past 12 Hours) Vital Signs Temp Pulse Pulse Pulse Resp BP BP 08/11/23 08:10 35.8 C L 117 H 18 133/82 08/11/23 03:20 120 H 113/75 08/11/23 03:20 36.3 C L 120 H 18 113/75 08/11/23 03:03 36.3 C L 124 H 20 113/75 08/11/23 00:22 08/10/23 22:43 36.1 C L 132 H 14 132/87 08/10/23 21:52 122 H Pulse Ox O2 Del Method O2 Flow Rate 08/11/23 08:10 98 Non-rebreather 15 08/11/23 03:20 08/11/23 03:20 87 L Non-rebreather 15 08/11/23 03:03 08/11/23 00:22 Nasal Cannula 4 08/10/23 22:43 96 Nasal Cannula 4 08/10/23 21:52 Diagnostic Findings 08/11/23 CXR: There is no pneumothorax. Moderate left and right pleural effusions are present. Left pleural effusion has slightly increased in size. Pulmonary edema has slightly progressed. Persistent perihilar and bibasilar opacities are likely related to pulmonary edema or atelectasis. PG Care Time/CCT Total # of Minutes Spent Total Time Spent with Patient: Total time spent is greater than 50% in coordination of care (as documented) at patient's floor/unit and/or counseling patient: Coding Level of Care Code 15702 SUB INP/OBS CARE 3/50MIN Diagnoses Acute kidney injury N17.9 Perforated abdominal viscus R19.8 Acute blood loss anemia D62
[2023-08-11] MEDS ORDERED: BUMETANIDE 2 MG in SYRINGE 0 ML IV ONE ×3 (09:00→17:30)
--- NOTE | 2023-08-11 13:13 | Hospitalist Progress Note ---
Date of Service August 11, 2023 Assessment & Plan (1) Acute hypoxic respiratory failure: Plan: Patient is in respiratory distress Currently on BiPAP Chest x-ray shows pulmonary congestion and bilateral pleural effusion, suggesting fluid overload This is most likely due to acute diastolic congestive heart failure secondary to fluid overload and acute kidney injury Recent echocardiogram on 06/21 showed normal EF TPN discontinued He was given 40 mg of IV Lasix at 5 AM with minimal response I ordered 2 mg of IV Bumex. The telephonic nurse case manager ordered an extra 2 mg of IV Bumex to be given at 3 PM Noted worsened creatinine. Financial Sales Consultant aware (2) Acute kidney injury: Plan: First noted 07/25-maybe atn due to poor po intake, ain from meds not likely as no WBCs on UA, could be OSWALDO from CT scans and ATN from infection Creatinine rising. Today 4.57 No hyperkalemia or metabolic acidosis. However patient is volume overloaded today Financial Sales Consultant aware Diuretic trial with Bumex (3) Perforated abdominal viscus: Plan: Patient with recent diagnosis of Ulcerative pancolitis, and had sessile polyp biopsied along with other biopsies on a colonoscopy during previous admission. Presented with free air, to OR 06/28/23 with subtotal colon resection with rectal stump remaining, and ileostomy. Three areas of perforation were identified, abscess and feculent material seen. Pseudomonas, Staphylococcus aureus, and Enterococcus faecium as well as Mariely albicans isolated. RUQ drain has been removed. IR drain remains and continues to drain in LUQ manipulated on 07/23/[address] scan 07/19 shows persistent fluid collections consistent with abscess 07/23/2023 shows a leukocytosis hence the drain manipulation Repeat abdominal CT on 08/02 with improving size and multiple abscesses but still one that is large 9 cm- discussed with IR not possible as drain additional larger pocket as loculated other pockets too small Wound vac remains in place over LLQ and being changed every 3 days Leukocytosis resolved, remains afebrile P.o. intake remains extremely poor-dietary following. SPeech saw and said no problems with swallowing--> prealbumin low, TGs mildly high, phos replete GI consult 08/03--> recommended no EGD, start PPI bid, check H. pylori, start phenergan prn Attempted barium swallow to assess for obstruction given frequent vomiting--> he could not drink barium KUB 07/31 no obstruction ECG no prolonged QT while on diflucan Appreciate infectious disease recommendations -continue daptomycin, renally adjusted fluconazole through 08/30/23 w/ reevaluation for likely extension with CT abd/pel prior to that around 08/16- 08/23 to see if needs further IR drainage or drain manipulation Switched cefepime to IV Zosyn 08/10 due to concern for cefepime induced neurotoxicity. Patient is getting increasingly lethargic. spoke to infectious disease and nephrology who are both okay with the switch -continue metronidazole 500mg bid through 08/10/23. Discontinued metronidazole -started Remeron 7.5mg po hs for appetite stimulant and in case depression causing poor appetite reglan scheduled for post prandial nausea -Check CK once weekly while on daptomycin, follow CBC, BMP -started TPN 08/04 given severe malnutrition -gave 6 doses of IV thiamine high-dose to prevent Wernicke encephalopathy in case of deficiency given severe malnutrition while on D5-revert back to 100mg daily CT abdomen 08/09 unremarkable (4) Acute blood loss anemia: Plan: Postoperatively. No bleeding noted from anywhere B12, folate, iron studies normal TSH mildly elevated and free T4 mildly low-follow likely from chronic disease follow CBC (5) Hard of hearing: Plan: Supportive care, wears hearing device (6) Encephalopathy: Plan: Acute encephalopathy, probably metabolic. Now resolved. Continue supportive care. Head CT scan negative. Patient does not appear to be confused overtly or comatose. But per deputy editor in chief, he is getting more drowsy and sleeping more every day. However he may be starting with uremic encephalopathy with asterixis noted today. Discontinue cefepime due to its neurotoxicity Switch to IV Zosyn 08/10 (7) Ulcerative colitis: Plan: Patient with ulcerative colitis diagnosed by colonoscopy in 06/2023 Now status post subtotal colectomy with only rectal stump remaining No treatment needed at this point but will need continued surveillance for colorectal CA of the rectal stump Will need follow-up with GI as an outpatient (8) Acute diastolic congestive heart failure: Plan: Please see problem #1 Plan Dispo-continued stay Extensive discussion with the care home system -current plan in place to be the patient returns to the care home when medically stable Patient will then have supplies to continue antibiotic care at [place] but with eventual transition to [facility] care home system which is a more robust medical facility Admission and Anticipated Discharge Date Admission Date: June 28, 2023 Subjective Was called earlier this morning by respiratory therapist. Was notified that the patient is on a BiPAP. Overnight events noted. Patient has been going into respiratory distress, requiring nonrebreather mask, then switch to BiPAP. Chest x-ray shows volume overload. He was given a dose of 40 mg of IV Lasix with no significant response. I ordered another dose of 2 mg IV Bumex x 1. I informed nephrology about overnight events. I transferred him to PCU. The patient is not very expressive about his distress. He is now on the BiPAP. Review of Systems Review of Systems: All systems reviewed & are unremarkable except as noted in Subjective Physical Exam Physical Exam: General: Awake. BiPAP mask on. Heart: S1, S2/regular rate and rhythm, no murmur rubs or gallops Lungs: Diminished breath sounds bilaterally.. Normal effort Abdomen: Soft/nondistended. Mild tenderness to palpation in the abdomen diffusely. No hepatosplenomegaly. Colostomy bag in place. Left upper quadrant drain catheter in place. Extremities: No clubbing/cyanosis. Trace bilateral edema Behavior: Appropriate, cooperative Results & Data Results & Data Vital Signs (Past 12 Hours) Vital Signs Temp Pulse Pulse Pulse Resp BP BP 08/11/23 11:39 126 H 26 H 08/11/23 11:36 37.2 C 117 H 18 128/84 08/11/23 11:12 08/11/23 08:10 35.8 C L 117 H 18 133/82 08/11/23 07:30 122 H 29 H 08/11/23 03:20 120 H 113/75 08/11/23 03:20 36.3 C L 120 H 18 113/75 08/11/23 03:03 36.3 C L 124 H 20 113/75 Pulse Ox O2 Del Method O2 Flow Rate FiO2 08/11/23 11:39 93 60 08/11/23 11:36 95 Non-rebreather 15 08/11/23 11:12 BiPAP 08/11/23 08:10 98 Non-rebreather 15 08/11/23 07:30 93 80 08/11/23 03:20 08/11/23 03:20 87 L Non-rebreather 15 08/11/23 03:03 Laboratory Results Abnormal lab results 08/10/23 08/11/23 Range/Units 16:38 03:55 WBC 14.97 H (4.8-10.8) K/ul RBC 2.62 L (4.70-6.10) M/uL Hgb 7.5 L (14.0-18.0) g/dl Hct 23.9 L (42.0-52.0) % MCHC 31.4 L (32.0-36.0) g/dL RDW Std Deviation 58.4 H (36.4-46.3) fL RDW Coeff of Ashley 17.7 H (11.5-14.5) % Plt Count 456 H (130-400) K/uL Neut # (Auto) 13.70 H (1.40-6.50) K/uL Lymph # (Auto) 0.36 L (1.20-3.40) K/uL [place] # (Auto) 0.78 H (0.11-0.59) K/uL VBG pH 7.45 H (7.36-7.41) VBG pCO2 34 L (38-50) mmHg Chloride 109 H (98-107) mmol/L BUN 58 H (6-23) mg/dl Creatinine 4.57 H* (0.6-1.4) mg/dl Glucose 138 H (70-99(Fasting)) mg/dl Calcium 7.8 L (8.6-10.3) mg/dl Alkaline Phosphatase 187 H (34-104) U/L Total Creatine Kinase 13 L (30-223) U/L Total Protein 5.9 L (6.0-8.3) gm/dl Albumin 2.3 L (3.4-5.0) gm/dl Albumin/Globulin Ratio 0.6 L (0.9-2) Diagnostic Findings Chest X-Ray 08/11/23 03:32 XR chest 1V portable CLINICAL HISTORY: Increased O2 requirement COMPARISON STUDY: Chest CT June 17, 2023. Chest radiograph August 10, 2023. FINDINGS: A left PICC is in place. There is no pneumothorax. Moderate left and right pleural effusions are present. Left pleural effusion has slightly increased in size. Pulmonary edema has slightly progressed. Persistent perihilar and bibasilar opacities are likely related to pulmonary edema or atelectasis. IMPRESSION: 1. Moderate left pleural effusion, slightly increased in size. Small right pleural effusion. 2. Progression of pulmonary edema. 3. Perihilar and bibasilar opacities are likely related to alveolar edema and atelectasis. ACT 112: Negative or not required by law. Electronically signed by: Andres Amanda M.D. 08/11/2023 6:31 AM PG Care Time/CCT Total # of Minutes Spent Total Time Spent with Patient: Total time spent is greater than 50% in coordination of care (as documented) at patient's floor/unit and/or counseling patient: Coding Level of Care Code 53135 SUB INP/OBS CARE 2/35MIN Diagnoses Acute hypoxic respiratory failure J96.01 Acute kidney injury N17.9 Perforated abdominal viscus R19.8 Acute blood loss anemia D62 Bilateral hearing loss, unspecified hearing loss type H91.93 Hearing loss type: unspecified Laterality: bilateral Encephalopathy G93.40 Ulcerative pancolitis with abscess K51.014 Ulcerative colitis location: ulcerative pancolitis Digestive disease complication type: with abscess Acute diastolic congestive heart failure I50.31 (5) Hard of hearing Hearing loss type: unspecified Laterality: bilateral Qualified Code(s): H91 .93 - Unspecified hearing loss, bilateral (7) Ulcerative colitis Ulcerative colitis location: ulcerative pancolitis Digestive disease complication type: with abscess Qualified Code(s): K51.014 - Ulcerative (chronic) pancolitis with abscess
[2023-08-11] MEDS ORDERED: BUMETANIDE IV BOLUS FROM BAG IV ONE ×2 (15:00→17:20)
[2023-08-11 15:36] LABS: BUN Creatinine Ratio 12.1 (10-20); Calcium 7.9 mg/dl (8.6-10.3); Creatinine Clr Calc Pharmacy 15.3 ml/min; Est GFR (African American) 14.5 ml/min; Est GFR (Non-African American) 12.5 ml/min; Potassium 5.3 mmol/L (3.5-5.1)
[2023-08-11] MEDS: FLUCONAZOLE 200 MG/100 ML BAG IV SCH (20:21)
[2023-08-11] MEDS ORDERED: HYDROmorphone INJ 0.5 MG/0.5 ML SYR IV STA (20:30)
[2023-08-11] MEDS: MIRTAZAPINE TAB 15 MG TAB PO SCH (20:44)
[2023-08-12] MEDS: FAMOTIDINE 20 MG in SYRINGE 3 ML IV SCH ×2 (03:45→16:12)
[2023-08-12] MEDS: PIPERACILLIN/TAZOBACTAM 4.5 GM in DEXTROSE 5% MINI-B 100 ML IV SCH ×2 (03:45→16:11)
[2023-08-12 06:39] LABS: Hematocrit (blood only) 23.1 % (42.0-52.0); Hemoglobin 7.1 g/dl (14.0-18.0); Mean Corpuscular Hemoglobin 28.5 pg (25.0-34.0); Mean Corpuscular Hgb Conc 30.7 g/dL (32.0-36.0); Mean Corpuscular Volume 92.8 fL (80.0-100.0); Mean Platelet Volume 10.4 fL (9.4-12.4); Platelet Count 348 K/uL (130-400); RDW Coefficient of Variation 18.1 % (11.5-14.5); RDW Standard Deviation 61.3 fL (36.4-46.3); Red Blood Count 2.49 M/uL (4.70-6.10); White Blood Count 10.78 K/ul (4.8-10.8)
[2023-08-12 07:05] LABS: BUN Creatinine Ratio 11.9 (10-20); Calcium 7.9 mg/dl (8.6-10.3); Creatinine Clr Calc Pharmacy 14.1 ml/min; Est GFR (African American) 13.1 ml/min; Est GFR (Non-African American) 11.3 ml/min; Potassium 4.9 mmol/L (3.5-5.1)
[2023-08-12] MEDS: THIAMINE HCL 100 MG in SYRINGE 9 ML IV SCH (08:06)
[2023-08-12] MEDS: HEPARIN SOD 5,000 UNIT/0.5 ML VIAL SQ SCH ×4 (08:06→20:55)
[2023-08-12] MEDS: amLODIPine BESYLATE 5 MG TAB PO SCH (08:06)
[2023-08-12] MEDS: PANTOprazole 40 MG in SYRINGE 0 ML IV SCH ×2 (08:07→20:41)
--- NOTE | 2023-08-12 08:18 | Critical Care Consultation ---
Date of Consultation August 12, 2023 Assessment & Plan (1) Perforated abdominal viscus: (2) Sepsis: (3) S/P colon resection: (4) Hard of hearing: (5) Pancolitis: (6) Acute diastolic congestive heart failure: (7) Acute hypoxic respiratory failure: (8) Acute kidney injury: Plan Reason: 49 YOM with history of Ulcerative Colitis- admitted with perforated viscous, pneumoperitoneum, pancolitis and enlarged colon, s/p colectomy, colostomy and DAVID drain During the course of his stay patient went into DERIK now requiring dialysis. -- Acute hypoxic respiratory failure Multifactorial Bilateral pleural effusion, diastolic CHF Continue with diuretics as tolerated High flow nasal cannula to keep O2 saturation greater than 90% Patient will benefit from BiPAP is able to tolerate it -- Acute kidney injury Creatinine today 5.29 Plan for nephrology is to do hemodialysis Plan: Risk and benefit of dialysis catheter explained to the patient in depth He is agreeable to the procedure Consent signed, witnessed and put in the chart Platelets 348 today He is not on any blood thinners I would recommend BiPAP 10/, can increase it to 12/8 if the patient is able to tolerate it. Keep O2 saturation 90-92% Incentive spirometry will be beneficial Please note the above document was generated using voice recognition software. It may contain grammatical, syntax or spelling errors.Any formal questions or concerns about the content, text or information contained within the body of this dictation should be directly addressed to the provider for clarification. History of Present Illness Attending Physician: Monserrat Brand MD History of Present Illness 53-year-old male who was admitted to the hospital on 06/28/2023 for perforated abdominal viscus Past medical history: DERIK, diastolic CHF, ulcerative colitis He has a prolonged stay in the hospital requiring multiple procedures including colostomy as well as pigtail drainage I was consulted by nephrology today as patient's creatinine was worsening with worsening bilateral pleural effusion and increasing oxygen requirement to place dialysis catheter At the time of examination patient was saturating 86 787% on 40 L 75% FiO2 He was not any respiratory distress Present guards were also in the room. Denies any chest pain, he does complain of shortness of breath on minimal exertion No headache, no nausea, no vomiting, poor appetite Denies any fever or chills Denies any headache, no blurry vision Allergies Allergy/AdvReac Type Severity Reaction Status Date / Time No Known Allergies Allergy Verified 06/14/23 10:21 Home Medications Medication Instructions Recorded Confirmed Type mesalamine 4 gram/60 mL enema 4 g (60 mL) NE HS 1 month #1,800 mL 06/22/23 06/28/23 Rx mesalamine 800 mg tablet,delayed 1,600 mg (2 x 800 mg) PO TID 1 06/22/23 06/28/23 Rx release month #180 tabs prednisone 20 mg tablet 40 mg (2 x 20 mg) PO DAILY 1 month 06/22/23 06/28/23 Rx #60 tabs Patient History Medical History Ileostomy in place Abnormal colonoscopy Hard of hearing Ulcerative colitis Encounter for pre-operative examination Surgical History S/P colon resection Social History Smoking Status: Unknown if ever smoked Tobacco Type: Cigarettes Hx Alcohol Use: No Hx Substance Use: No Preferred Language: Tamazight Communication Ability: Effective Hoisting Pile Driving Engineer Required: No Beliefs That Will Affect Care: None Current Living Situation: Other Current Living Situation Comment: [facility] Feels Safe at Home: Yes Assistive Devices: Hearing Aid - Left and Hearing Aid - Right Review of Systems 2 Review of Systems: All systems reviewed & are unremarkable except as noted in HPI & below Physical Exam 2 Physical Exam: Constitutional: No acute distress HEENT: EOMI, PERRLA, hard to hear Respiratory system: Decreased air entry bilaterally, more decreased on the left side, no wheeze, no rhonchi, positive crackles bilateral lower lobes CVS: S1-S2 positive, no murmurs or gallops Abdomen: Soft, nontender, nondistended, positive bowel sounds x4, positive right-sided colostomy, positive pigtail drainage Extremities: +2 pulses bilaterally radialis/ dorsalis pedis, no cyanosis, n onpitting edema bilateral lower extremity Neuro: Awake alert oriented x3 Psych: Normal mood and affect G/U: No Mondragon Skin: no rashes, warm and dry Lymphatic: no cervical or axillary lymphadenopathy Results & Data Results & Data Vital Signs (Past 12 Hours) Vital Signs Temp Pulse Pulse Resp BP Pulse Ox O2 Del Method 08/12/23 07:55 114 H 20 92 High Flow Nasal Cannula 08/12/23 03:42 112 H 22 93 High Flow Nasal Cannula 08/12/23 02:56 37 C 109 H 22 129/95 96 High Flow Nasal Cannula 08/12/23 00:18 115 H 08/11/23 23:02 37 C 113 H 20 129/95 97 High Flow Nasal Cannula 08/11/23 22:55 122 H 26 H 97 High Flow Nasal Cannula 08/11/23 21:01 117 H 24 93 High Flow Nasal Cannula 08/11/23 20:30 High Flow Nasal Cannula O2 Flow Rate FiO2 08/12/23 07:55 40 75 08/12/23 03:42 40 60 08/12/23 02:56 08/12/23 00:18 08/11/23 23:02 08/11/23 22:55 40 65 08/11/23 21:01 40 70 08/11/23 20:30 40 65 Laboratory Results 08/12/23 05:49 08/12/23 05:49 Coding Level of Care Code 90095 IN/OBS CONSULT LVL 4,60M Diagnoses Perforated abdominal viscus R19.8 Sepsis A41.9 S/P colon resection Z90.49 Bilateral hearing loss, unspecified hearing loss type H91.93 Hearing loss type: unspecified Laterality: bilateral Pancolitis K51.00 Acute diastolic congestive heart failure I50.31 Acute hypoxic respiratory failure J96.01 Acute kidney injury N17.9 (4) Hard of hearing Hearing loss type: unspecified Laterality: bilateral Qualified Code(s): H 91.93 - Unspecified hearing loss, bilateral
[2023-08-12] MEDS ORDERED: SODIUM CHLORIDE 0.9% 1,000 ML IV PRN (08:23)
[2023-08-12] MEDS ORDERED: LIDOCAINE 2% LOCAL 50 ML VIAL ONE (08:54)
[2023-08-12] MEDS ORDERED: LIDOCAINE 1% LOCAL 20 ML VIAL ONE (08:58)
--- NOTE | 2023-08-12 09:19 | Procedure Note ---
Procedure Note Date of Service August 12, 2023 Note Procedure: Inserting ultrasound-guided temporary dialysis catheter Electrolog Operator: Dr. Jose Francisco Gage Indication: Acute renal failure Consent: Signed by patient and verified with timeout prior to procedure. Anesthesia: 1% lidocaine without epinephrine local. Procedure: Consent was verified and timeout performed. Appropriate imaging studies were reviewed prior to the procedure. Under aseptic and sterile condition, left femoral vein was accessed under direct ultrasound guidance. Guidewire was confirmed to be within the lumen of vein with the help of ultrasound. Catheter was introduced via Seldinger technique. Guide a wire was removed. Good non-pulsatile blood flow was appreciated from all the ports. The catheter was placed at 24 cm and sutured in place. BioPatch was applied to the catheter and a sterile Tegaderm dressing was applied over the catheter with careful attention to sterility. Patient tolerated the procedure well. Blood loss: Less than 2 cc Complications: None Coding CPT Codes Tubes, Drains, and Vasc Access - Tubes, Drains, and Vasc Access: [id number] Insertion of cannula for hemodialysis ([id number]) Tubes, Drains, and Vasc Access - Tubes, Drains, and Vasc Access: [id number] Ultrasound Guidance For Vascular ([id number]) [facility] [place] (Charges) Tubes, Drains, and Vasc Access Procedure 1: Tubes, Drains, and Vasc Access: [id number] Insertion of cannula for hemodialysis Procedure 2: Tubes, Drains, and Vasc Access: [id number] Ultrasound Guidance For Vascular
--- NOTE | 2023-08-12 09:40 | Nephrology Progress Note ---
Date of Service August 12, 2023 Assessment & Plan (1) Acute kidney injury: Plan: * ATN due to sepsis, contrast induced nephropathy. 07/27/23 renal US and 08/09/[address] were negative for obstruction. Baseline Cr ~ 1.0 * Progressive rise in Cr to 5.29. Question whether AIN related to antibiotic therapy. Difficult to assess for flank pain due to recent surgery. Unable to administer steroids due to ongoing infection. Agree w/ stopping Cefepime. Will check urine sediment and initiate HD * Recommend transfusion 1 u PRBC with HD today * Monitor I&O, PRP * JAY has been held due to volume overload (2) Perforated abdominal viscus: Plan: * Presented with ulcerative pancolitis * s/p Ex lap subtotal colectomy and ileostomy formation 06/28/23 * Found to have multiple abdominal fluid collections/abscesses. * Cultures have grown out pseudomonas, staph aureus, enterococcus faecium and C albicans. Remains on piperacillin/tazobactam, metronidazole, and fluconazole. ID following. Cefepime stopped due to lethargy/delerium * 08/09/[address]: LUQ fluid collection unchanged, drain in place. Remainder of smaller fluid collections have decreased in size. Moderate bilateral effusions. No bowel obstruction (3) Acute blood loss anemia: Plan: * Hgb is gradually trending down * Patient likely will not respond to JARRETT due to inflammation * Recommend blood transfusion to maintain Hgb > 7.0 Admission and Anticipated Discharge Date Admission Date: June 28, 2023 Subjective Mr. Deleon was evaluated in his hospital room this morning. He remains on high flow O2 NC. UO only 500 cc last 24 hours despite escalating doses of diuretics Review of Systems Constitutional: no fever Eyes: no problem reported Ear, Nose, Mouth, Throat: no problem reported Respiratory: no cough and no dyspnea Cardiovascular: no chest pain Gastrointestinal: + abdominal pain and + nausea; no vomiti ng and no diarrhea/loose stools Physical Exam Constitutional: + ill appearing and + cachectic; not in distress Eyes: PERRL, conjunctivae normal, anicteric sclerae ENMT: external ear and nose normal, oropharynx normal Neck: trachea midline, no thyromegaly Respiratory: normal respiratory effort, lungs clear to auscultation Auscultation: + rales (at bases bilaterally) Cardiovascular: RRR, no murmur, no edema Rate/Rhythm: regular rate, regular rhythm and + tachycardic Extremities: + edema (trace pretibial pitting edema) Gastrointestinal (Abdomen): Inspection/Auscultation: + hypoactive bowel sounds Neurologic: awake Results & Data Vital Signs (Past 12 Hours) Vital Signs Temp Pulse Pulse Resp BP Pulse Ox O2 Del Method 08/12/23 03:42 112 H 22 93 High Flow Nasal Cannula 08/12/23 02:56 37 C 109 H 22 129/95 96 High Flow Nasal Cannula 08/12/23 00:18 115 H 08/11/23 23:02 37 C 113 H 20 129/95 97 High Flow Nasal Cannula 08/11/23 22:55 122 H 26 H 97 High Flow Nasal Cannula 08/11/23 21:01 117 H 24 93 High Flow Nasal Cannula 08/11/23 20:30 High Flow Nasal Cannula 08/11/23 19:49 36.7 C 118 H 20 135/94 91 High Flow Nasal Cannula O2 Flow Rate FiO2 08/12/23 03:42 40 60 08/12/23 02:56 08/12/23 00:18 08/11/23 23:02 08/11/23 22:55 40 65 08/11/23 21:01 40 70 08/11/23 20:30 40 65 08/11/23 19:49 Laboratory Results Laboratory Results - last 24 hr 08/11/23 08/12/23 14:58 05:49 WBC 10.78 RBC 2.49 L Hgb 7.1 L Hct 23.1 L MCV 92.8 MCH 28.5 MCHC 30.7 L RDW Std Deviation 61.3 H RDW Coeff of Ashley 18.1 H Plt Count 348 MPV 10.4 Sodium 141 141 Potassium 5.3 H 4.9 Chloride 109 H 108 H Carbon Dioxide 24 24 Anion Gap 8 9 BUN 59 H 63 H Creatinine 4.88 H* D 5.29 H* D Est Cr Clr Drug Dosing 15.3 14.1 Est GFR ( Amer) 14.5 13.1 Est GFR (Non-Af Amer) 12.5 11.3 BUN/Creatinine Ratio 12.1 11.9 Glucose 105 H 90 Calcium 7.9 L 7.9 L PG Care Time/CCT Total # of Minutes Spent Total Time Spent with Patient: Total time spent is greater than 50% in coordination of care (as documented) at patient's floor/unit and/or counseling patient: Coding Level of Care Code 42282 SUB INP/OBS CARE 3/50MIN Diagnoses Acute kidney injury N17.9 Perforated abdominal viscus R19.8 Acute blood loss anemia D62
[2023-08-12] MEDS ORDERED: SODIUM CHLORIDE 0.9% 250 ML IV PRN (09:52)
--- NOTE | 2023-08-12 14:30 | Hospitalist Progress Note ---
Date of Service August 12, 2023 Assessment & Plan (1) Acute hypoxic respiratory failure: Plan: Patient is in respiratory distress Currently on high flow nasal cannula Chest x-ray shows pulmonary congestion and bilateral pleural effusion, suggesting fluid overload This is most likely due to acute diastolic congestive heart failure secondary to fluid overload and acute kidney injury Recent echocardiogram on 06/21 showed normal EF TPN discontinued on 08/11 he was given several doses of IV diuretics yesterday with minimal response Patient is being prepared for dialysis. (2) Acute kidney injury: Plan: First noted 07/25-maybe atn due to poor po intake, ain from meds not likely as no WBCs on UA, could be OSWALDO from CT scans and ATN from infection Creatinine Continues to rise today . patient is volume overloaded with minimal response to several doses of IV diuretics design transferrer decided to start him on dialysis Femoral vein temporary dialysis catheter placed. (3) Perforated abdominal viscus: Plan: Patient with recent diagnosis of Ulcerative pancolitis, and had sessile polyp biopsied along with other biopsies on a colonoscopy during previous admission. Presented with free air, to OR 06/28/23 with subtotal colon resection with rectal stump remaining, and ileostomy. Three areas of perforation were identified, abscess and feculent material seen. Pseudomonas, Staphylococcus aureus, and Enterococcus faecium as well as Mariely albicans isolated. RUQ drain has been removed. IR drain remains and continues to drain in LUQ manipulated on 07/23/[address] scan 07/19 shows persistent fluid collections consistent with abscess 07/23/2023 shows a leukocytosis hence the drain manipulation Repeat abdominal CT on 08/02 with improving size and multiple abscesses but still one that is large 9 cm- discussed with IR not possible as drain additional larger pocket as loculated other pockets too small Wound vac remains in place over LLQ and being changed every 3 days P.o. intake remains extremely poor-dietary following. SPeech saw and said no problems with swallowing--> prealbumin low, TGs mildly high, phos replete GI consult 08/03--> recommended no EGD, start PPI bid, check H. pylori, start phenergan prn Attempted barium swallow to assess for obstruction given frequent vomiting--> he could not drink barium KUB 07/31 no obstruction ECG no prolonged QT while on diflucan Appreciate infectious disease recommendations -continue daptomycin, renally adjusted fluconazole through 08/30/23 w/ reevaluation for likely extension with CT abd/pel prior to that around 08/16- 08/23 to see if needs further IR drainage or drain manipulation Switched cefepime to IV Zosyn 08/10 due to concern for cefepime induced neurotoxicity. Patient is getting increasingly lethargic. spoke to infectious disease and nephrology who are both okay with the switch -continue metronidazole 500mg bid through 08/10/23. Discontinued metronidazole -started Remeron 7.5mg po hs for appetite stimulant and in case depression causing poor appetite reglan scheduled for post prandial nausea -Check CK once weekly (Last done on 08/10) while on daptomycin, follow CBC, BMP -started TPN 08/04 given severe malnutrition -gave 6 doses of IV thiamine high-dose to prevent Wernicke encephalopathy in [place]ander e of deficiency given severe malnutrition while on D5-revert back to 100mg daily CT abdomen 08/09 unremarkable (4) Acute blood loss anemia: Plan: Postoperatively. No bleeding noted from anywhere B12, folate, iron studies normal TSH mildly elevated and free T4 mildly low-follow likely from chronic disease follow CBC Hemoglobin low today Ordered 1 unit of blood during dialysis (5) Hard of hearing: Plan: Supportive care, wears hearing device (6) Encephalopathy: Plan: Acute encephalopathy, probably metabolic. Now resolved. Continue supportive care. Head CT scan negative. Patient does not appear to be confused overtly or comatose. But per cooker process cheese, he is getting more drowsy and sleeping more every day. However he may be starting with uremic encephalopathy with asterixis Discontinue cefepime due to its neurotoxicity Switch to IV Zosyn 08/10 Patient will be started on dialysis today (7) Ulcerative colitis: Plan: Patient with ulcerative colitis diagnosed by colonoscopy in 06/2023 Now status post subtotal colectomy with only rectal stump remaining No treatment needed at this point but will need continued surveillance for colorectal CA of the rectal stump Will need follow-up with GI as an outpatient (8) Acute diastolic congestive heart failure: Plan: Please see problem #1 Plan Dispo-continued stay Extensive discussion with the detention system -current plan in place to be the [place] returns to the detention when medically stable Patient will then have supplies to continue antibiotic care at [place] but with eventual transition to [facility] detention system which is a more robust medical facility Admission and Anticipated Discharge Date Admission Date: June 28, 2023 Subjective patient had minimal response to diuretics yesterday. Decision has been made by design transferrer to start him on dialysis. He had a temporary dialysis catheter placed in his femoral vein. Patient continues to feel short of breath. He remains on high flow nasal cannula. When I saw him, he was getting ready to go for dialysis. Review of Systems Review of Systems: All systems reviewed & are unremarkable except as noted in Subjective Physical Exam Physical Exam: General: Awake. High flow nasal cannula on. Conversant. Heart: S1, S2/regular rate and rhythm, no murmur rubs or gallops Lungs: Diminished breath sounds bilaterally.. Normal effort Abdomen: Soft/nondistended. Mild tenderness to palpation in the abdomen diffusely. No hepatosplenomegaly. Colostomy bag in place. Left upper quadrant drain catheter in place. Extremities: No clubbing/cyanosis. Trace bilateral edema Behavior: Appropriate, cooperative Results & Data Results & Data Vital Signs (Past 12 Hours) Vital Signs Temp Pulse Pulse Pulse Pulse Pulse Resp 08/12/23 14:20 119 H 35 H 08/12/23 13:15 36.7 C 113 H 08/12/23 13:00 36.9 C 111 H 08/12/23 12:56 36.9 C 113 H 28 H 08/12/23 12:30 36.9 C 113 H 30 H 08/12/23 12:30 36.9 C 113 H 08/12/23 12:00 113 H 08/12/23 11:30 114 H 08/12/23 11:00 113 H 08/12/23 10:38 107 H 08/12/23 10:34 112 H 22 08/12/23 10:32 36.5 C 111 H 08/12/23 09:31 08/12/23 08:59 111 H 08/12/23 08:45 36.6 C 31 L 31 H 08/12/23 07:55 114 H 20 08/12/23 03:42 112 H 22 08/12/23 02:56 37 C 109 H 22 BP BP Pulse Ox O2 Del Method O2 Flow Rate FiO2 08/12/23 14:20 100 High Flow Nasal Cannula 35 65 08/12/23 13:15 115/82 08/12/23 13:00 108/77 08/12/23 12:56 113/79 08/12/23 12:30 123/77 08/12/23 12:30 123/77 08/12/23 12:00 124/88 08/12/23 11:30 124/84 08/12/23 11:00 122/89 08/12/23 10:38 129/91 08/12/23 10:34 91 High Flow Nasal Cannula 40 75 08/12/23 10:32 08/12/23 09:31 High Flow Nasal Cannula 40 65 08/12/23 08:59 08/12/23 08:45 127/86 90 High Flow Nasal Cannula 08/12/23 07:55 92 High Flow Nasal Cannula 40 75 08/12/23 03:42 93 High Flow Nasal Cannula 40 60 08/12/23 02:56 129/95 96 High Flow Nasal Cannula Laboratory Results Abnormal lab results 08/11/23 08/12/23 08/12/23 Range/Units 14:58 05:49 10:59 RBC 2.49 L (4.70-6.10) M/uL Hgb 7.1 L (14.0-18.0) g/dl Hct 23.1 L (42.0-52.0) % MCHC 30.7 L (32.0-36.0) g/dL RDW Std Deviation 61.3 H (36.4-46.3) fL RDW Coeff of Ashley 18.1 H (11.5-14.5) % Potassium 5.3 H (3.5-5.1) mmol/L Chloride 109 H 108 H (98-107) mmol/L BUN 59 H 63 H (6-23) mg/dl Creatinine 4.88 H* D 5.29 H* D (0.6-1.4) mg/dl Glucose 105 H (70-99(Fasting)) mg/dl Calcium 7.9 L 7.9 L (8.6-10.3) mg/dl Crossmatch See Detail PG Care Time/CCT Total # of Minutes Spent Total Time Spent with Patient: Total time spent is greater than 50% in coordination of care (as documented) at patient's floor/unit and/or counseling patient: Coding Level of Care Code 18680 SUB INP/OBS CARE 2/35MIN Diagnoses Acute hypoxic respiratory failure J96.01 Acute kidney injury N17.9 Perforated abdominal viscus R19.8 Acute blood loss anemia D62 Bilateral hearing loss, unspecified hearing loss type H91.93 Hearing loss type: unspecified Laterality: bilateral Encephalopathy G93.40 Ulcerative pancolitis with abscess K51.014 Ulcerative colitis location: ulcerative pancolitis Digestive disease complication type: with abscess Acute diastolic congestive heart failure I50.31 (5) Hard of hearing Hearing loss type: unspecified Laterality: bilateral Qualified Code(s): H91.93 - Unspecified hearing loss, bilateral (7) Ulcerative colitis Ulcerative colitis location: ulcerative pancolitis Digestive disease complication type: with abscess Qualified Code(s): K51.014 - Ulcerative (chronic) pancolitis with abscess
[2023-08-12] MEDS: MIRTAZAPINE TAB 15 MG TAB PO SCH (20:40)
[2023-08-13] MEDS: PIPERACILLIN/TAZOBACTAM 4.5 GM in DEXTROSE 5% MINI-B 100 ML IV SCH ×2 (03:42→14:54)
[2023-08-13] MEDS: FAMOTIDINE 20 MG in SYRINGE 3 ML IV SCH ×2 (03:42→14:53)
[2023-08-13 06:18] LABS: Hematocrit (blood only) 26.8 % (42.0-52.0); Hemoglobin 8.5 g/dl (14.0-18.0); Mean Corpuscular Hemoglobin 28.9 pg (25.0-34.0); Mean Corpuscular Hgb Conc 31.7 g/dL (32.0-36.0); Mean Corpuscular Volume 91.2 fL (80.0-100.0); Mean Platelet Volume 10.3 fL (9.4-12.4); Platelet Count 334 K/uL (130-400); RDW Coefficient of Variation 17.1 % (11.5-14.5); Red Blood Count 2.94 M/uL (4.70-6.10); White Blood Count 7.88 K/ul (4.8-10.8)
[2023-08-13 06:43] LABS: BUN Creatinine Ratio 10.1 (10-20); Calcium 7.9 mg/dl (8.6-10.3); Creatinine Clr Calc Pharmacy 17.7 ml/min; Est GFR (African American) 19.8 ml/min; Est GFR (Non-African American) 17.1 ml/min; Potassium 4.3 mmol/L (3.5-5.1)
[2023-08-13] MEDS: PANTOprazole 40 MG in SYRINGE 0 ML IV SCH ×2 (07:48→21:15)
[2023-08-13] MEDS: THIAMINE HCL 100 MG in SYRINGE 9 ML IV SCH (07:48)
[2023-08-13] MEDS ORDERED: HYDROmorphone INJ 0.5 MG/0.5 ML SYR IV STA (07:53)
--- NOTE | 2023-08-13 08:09 | XRay Report ---
XR chest 1V portable CLINICAL HISTORY: CHF TECHNIQUE: Single frontal radiograph of the chest was obtained. Comparison: Comparison is made to chest radiograph 08/11/2023 FINDINGS: No lines and tubes are seen. The cardiomediastinal silhouette is stable. Interval improvement in pulm onary edema with possibly residual edema versus airspace opacities. Atelectasis is noted in the right midlung. Moderate left pleural effusion and likely small right pleural effusion. IMPRESSION: 1. Stable moderate left and small right pleural effusion. 2. Interval improvement in pulmonary edema with significant residual edema versus aspiration/atelect asis/pneumonia. ACT 112: Negative or not required by law. Electronically signed by: Sudhakar Ambrose M.D. 08/13/2023 8:07 AM
[2023-08-13] MEDS: amLODIPine BESYLATE 5 MG TAB PO SCH (08:11)
[2023-08-13] MEDS: HEPARIN SOD 5,000 UNIT/0.5 ML VIAL SQ SCH ×2 (08:11→21:11)
--- NOTE | 2023-08-13 08:17 | Nephrology Progress Note ---
Date of Service August 13, 2023 Assessment & Plan (1) Acute kidney injury: Plan: * ATN due to sepsis, contrast induced nephropathy. 07/27/23 renal US and 08/09/[address] were negative for obstruction. Baseline Cr ~ 1.0 * Progressive rise in Cr to 5.29. Question whether AIN related to antibiotic therapy. Difficult to assess for flank pain due to recent surgery. Unable to administer steroids due to ongoing infection. Agree w/ stopping Cefepime * CXR this am shows significant improvement in CHF. Will provide HD today for additional 3 L UF and plan to monitor kidney function over weekend. If HD still needed next week, will need to consider Vascular Surgery consultation for IJ TCC * Monitor I&O, PRP * JAY has been held due to volume overload (2) Perforated abdominal viscus: Plan: * Presented with ulcerative pancolitis * s/p Ex lap subtotal colectomy and ileostomy formation 06/28/23 * Found to have multiple abdominal fluid collections/abscesses. * Cultures have grown out pseudomonas, staph aureus, enterococcus faecium and C albicans. Remains on piperacillin/tazobactam, metronidazole, and fluconazole. ID following. Cefepime stopped due to lethargy/delerium * 08/09/[address]: LUQ fluid collection unchanged, drain in place. Remainder of smaller fluid collections have decreased in size. Moderate bilateral effusions. No bowel obstruction (3) Acute blood loss anemia: Plan: * Transfused 1 unit PRBC w/ HD 08/12/23. Hgb 7.1-->8.5 * Patient likely will not respond to JARRETT due to inflammation * Recommend blood transfusion to maintain Hgb > 7.0 Admission and Anticipated Discharge Date Admission Date: June 28, 2023 Subjective Mr. Deleon was evaluated in his hospital room this morning. Dialysis was performed yesterday using L femoral temporary catheter. There were no complications. 1 unit PRBC provided during treatment, 3 L UF obtained. Mr. Deleon remains on high flow O2 via AL Review of Systems Constitutional: no fever Eyes: no problem reported Ear, Nose, Mouth, Throat: no problem reported Respiratory: no cough and no dyspnea Cardiovascular: no chest pain Gastrointestinal: + abdominal pain and + nausea; no vomiti ng and no diarrhea/loose stools Physical Exam Constitutional: + ill appearing and + cachectic; not in distress Eyes: PERRL, conjunctivae normal, anicteric sclerae ENMT: external ear and nose normal, oropharynx normal Neck: trachea midline, no thyromegaly Respiratory: normal respiratory effort, lungs clear to auscultation Auscultation: + rales (at bases bilaterally) Cardiovascular: RRR, no murmur, no edema Rate/Rhythm: regular rate, regular rhythm and + tachycardic Extremities: + edema (trace pretibial pitting edema) Gastrointestinal (Abdomen): Inspection/Auscultation: + hypoactive bowel sounds Neurologic: awake Results & Data Vital Signs (Past 12 Hours) Vital Signs Temp Pulse Pulse Resp BP BP Pulse Ox 08/13/23 07:33 108 H 18 98 08/13/23 07:26 111 H 08/13/23 07:21 36.9 C 109 H 18 129/63 96 08/13/23 04:12 99 H 18 93 08/13/23 03:54 37.0 C 109 H 20 133/87 93 08/13/23 00:56 106 H 08/12/23 23:27 37.4 C 110 H 20 132/91 100 08/12/23 23:26 105 H 18 97 08/12/23 20:40 08/12/23 20:28 110 H 18 100 O2 Del Method O2 Flow Rate FiO2 08/13/23 07:33 High Flow Nasal Cannula 12 08/13/23 07:26 08/13/23 07:21 High Flow Nasal Cannula 08/13/23 04:12 High Flow Nasal Cannula 25 55 08/13/23 03:54 High Flow Nasal Cannula 08/13/23 00:56 08/12/23 23:27 High Flow Nasal Cannula 08/12/23 23:26 High Flow Nasal Cannula 30 60 08/12/23 20:40 High Flow Nasal Cannula 35 65 08/12/23 20:28 High Flow Nasal Cannula 35 65 Laboratory Results Laboratory Results - last 24 hr 08/12/23 08/13/23 10:59 05:38 WBC 7.88 RBC 2.94 L Hgb 8.5 L Hct 26.8 L MCV 91.2 MCH 28.9 MCHC 31.7 L RDW Std Deviation 57.0 H RDW Coeff of Ashley 17.1 H Plt Count 334 MPV 10.3 Sodium 140 Potassium 4.3 Chloride 107 Carbon Dioxide 23 Anion Gap 10 BUN 38 H D Creatinine 3.77 H D Est Cr Clr Drug Dosing 17.7 Est GFR ( Amer) 19.8 Est GFR (Non-Af Amer) 17.1 BUN/Creatinine Ratio 10.1 Glucose 73 Calcium 7.9 L Hep Bs Antigen Pending Hep Bs Ag Confirmation Pending Hep Bs Antibody, Quant Pending Blood Type A Negative Antibody Screen NEGATIVE Crossmatch See Detail Diagnostic Findings 08/13/23 CXR: 1. Stable moderate left and small right pleural effusion. 2. Interval improvement in pulmonary edema with significant residual edema versus aspiration/atelectasis/pneumonia. PG Care Time/CCT Total # of Minutes Spent Total Time Spent with Patient: Total time spent is greater than 50% in coordination of care (as documented) at patient's floor/unit and/or counseling patient: Coding Level of Care Code 70460 SUB INP/OBS CARE 3/50MIN Diagnoses Acute kidney injury N17.9 Perforated abdominal viscus R19.8 Acute blood loss anemia D62
[2023-08-13] MEDS ORDERED: SODIUM CHLORIDE 0.9% 1,000 ML IV PRN (08:18)
[2023-08-13] MEDS ORDERED: HEPARIN SOD (PORCINE) 1000 UNIT/ML IV ONE (08:18)
[2023-08-13] MEDS ORDERED: DAPTOmycin 600 MG in SYRINGE 0 ML IV ONE (08:30)
[2023-08-13] MEDS ORDERED: FLUCONAZOLE 200 MG/100 ML BAG IV ONE (08:30)
[2023-08-13 10:06] LABS: HBSAG NON-REACTIVE (NON-REACTIVE); Hepatitis B Surface Ab, Quant 5 mIU/mL (> OR = 10)
--- NOTE | 2023-08-13 14:10 | Hospitalist Progress Note ---
Date of Service August 13, 2023 Assessment & Plan (1) Acute hypoxic respiratory failure: Plan: Improving Chest x-ray shows improving bilateral pleural effusions Patient is being dialyzed acute hypoxic respiratory failure is most likely due to acute diastolic congestive heart failure secondary to fluid overload and acute kidney injury Recent echocardiogram on 06/21 showed normal EF TPN discontinued on 08/11 (2) Acute kidney injury: Plan: First noted 07/25-maybe atn due to poor po intake, ain from meds not likely as no WBCs on UA, could be OSWALDO from CT scans and ATN from infection Creatinine Continues to rise today 5.29 patient got volume overloaded with minimal response to several doses of IV diuretics Femoral vein temporary dialysis catheter placed. Patient got started on dialysis. Dialyzed on 08/12, 08/13 (3) Perforated abdominal viscus: Plan: Patient with recent diagnosis of Ulcerative pancolitis, and had sessile polyp biopsied along with other biopsies on a colonoscopy during previous admission. Presented with free air, to OR 06/28/23 with subtotal colon resection with rectal stump remaining, and ileostomy. Three areas of perforation were identified, abscess and feculent material seen. Pseudomonas, Staphylococcus aureus, and Enterococcus faecium as well as Mariely albicans isolated. RUQ drain has been removed. IR drain remains and continues to drain in LUQ manipulated on 07/23/[address] scan 07/19 shows persistent fluid collections consistent with abscess 07/23/2023 shows a leukocytosis hence the drain manipulation Repeat abdominal CT on 08/02 with improving size and multiple abscesses but still one that is large 9 cm- discussed with IR not possible as drain additional larger pocket as loculated other pockets too small Wound vac remains in place over LLQ and being changed every 3 days P.o. intake remains extremely poor-dietary following. SPeech saw and said no problems with swallowing--> prealbumin low, TGs mildly high, phos replete GI consult 08/03--> recommended no EGD, start PPI bid, check H. pylori, start phenergan prn Attempted barium swallow to assess for obstruction given frequent vomiting--> he could not drink barium KUB 07/31 no obstruction ECG no prolonged QT while on diflucan Today 08/13, for the first time in a week, patient is asking for food. ordered a clear liquid diet that can be advanced as tolerated Appreciate infectious disease recommendations -continue daptomycin, renally adjusted fluconazole through 08/30/23 w/ reevaluation for likely extension with CT abd/pel prior to that around 08/16- 08/23 to see if needs further IR drainage or drain manipulation Switched cefepime to IV Zosyn 08/10 due to concern for cefepime induced neurotoxicity. Patient was getting increasingly lethargic. spoke to infectious disease and nephrology who are both okay with the switch -continue metronidazole 500mg bid through 08/10/23. Discontinued metronidazole -started Remeron 7.5mg po hs for appetite stimulant and in case depression causing poor appetite reglan scheduled for post prandial nausea -Check CK once weekly (Last done on 08/10) while on daptomycin, follow CBC, BMP -started TPN 08/04 given severe malnutrition -gave 6 doses of IV thiamine high-dose to prevent Wernicke encephalopathy in case of deficiency given severe malnutrition while on D5-revert back to 100mg daily CT abdomen 08/09 unremarkable (4) Acute blood loss anemia: Plan: Postoperatively. No bleeding noted from anywhere B12, folate, iron studies normal TSH mildly elevated and free T4 mildly low-follow likely from chronic disease follow CBC Hemoglobin low today Ordered 1 unit of blood during dialysis (5) Hard of hearing: Plan: Supportive care, wears hearing device (6) Encephalopathy: Plan: Acute encephalopathy, probably metabolic. Now resolved. Continue supportive care. Head CT scan negative. Patient does not appear to be confused overtly or comatose. But per unarmed security guard, he is getting more drowsy and sleeping more every day. However he may be starting with uremic encephalopathy with asterixis Discontinue cefepime due to its neurotoxicity Switch to IV Zosyn 08/10 patient is getting dialyzed for 2 days in a row. Anticipate improvement in encephalopathy (7) Ulcerative colitis: Plan: Patient with ulcerative colitis diagnosed by colonoscopy in 06/2023 Now status post subtotal colectomy with only rectal stump remaining No treatment needed at this point but will need continued surveillance for colorectal CA of the rectal stump Will need follow-up with GI as an outpatient (8) Acute diastolic congestive heart failure: Plan: Please see problem #1 Plan Dispo-continued stay Extensive discussion with the alf system -current plan in place to be the patient returns to the alf when medically stable Patient will then have supplies to continue antibiotic care at [place] but with eventual transition to [facility] alf system which is a more robust medical facility Admission and Anticipated Discharge Date Admission Date: June 28, 2023 Subjective Patient is breathing better. He had said to the nurse that he was hungry. He has not been hungry in the past 1 week. currently on dialysis. Review of Systems Review of Systems: All systems reviewed & are unremarkable except as noted in Subjective Physical Exam Physical Exam: General: Sleeping during dialysis. Arousable. Heart: S1, S2/regular rate and rhythm, no murmur rubs or gallops Lungs: Diminished breath sounds bilaterally.. Normal effort Abdomen: Soft/nondistended. Mild tenderness to palpation in the abdomen diffusely. No hepatosplenomegaly. Colostomy bag in place. Left upper quadrant drain catheter in place. Extremities: No clubbing/cyanosis. Trace bilateral edema Behavior: Appropriate, cooperative Results & Data Results & Data Vital Signs (Past 12 Hours) Vital Signs Temp Pulse Pulse Resp BP BP BP 08/13/23 12:30 106 H 126/92 08/13/23 12:00 105 H 123/85 08/13/23 11:30 103 H 134/92 08/13/23 11:00 101 H 131/91 08/13/23 10:27 108 H 123/83 08/13/23 09:29 08/13/23 07:33 108 H 18 08/13/23 07:26 111 H 08/13/23 07:21 36.9 C 109 H 18 129/63 08/13/23 04:12 99 H 18 08/13/23 03:54 37.0 C 109 H 20 133/87 Pulse Ox O2 Del Method O2 Flow Rate FiO2 08/13/23 12:30 08/13/23 12:00 08/13/23 11:30 08/13/23 11:00 08/13/23 10:27 08/13/23 09:29 High Flow Nasal Cannula 12 08/13/23 07:33 98 High Flow Nasal Cannula 12 08/13/23 07:26 08/13/23 07:21 96 High Flow Nasal Cannula 08/13/23 04:12 93 High Flow Nasal Cannula 25 55 08/13/23 03:54 93 High Flow Nasal Cannula Laboratory Results Abnormal lab results 08/12/23 08/13/23 Range/Units 10:59 05:38 RBC 2.94 L (4.70-6.10) M/uL Hgb 8.5 L (14.0-18.0) g/dl Hct 26.8 L (42.0-52.0) % MCHC 31.7 L (32.0-36.0) g/dL RDW Std Deviation 57.0 H (36.4-46.3) fL RDW Coeff of Ashley 17.1 H (11.5-14.5) % BUN 38 H D (6-23) mg/dl Creatinine 3.77 H D (0.6-1.4) mg/dl Calcium 7.9 L (8.6-10.3) mg/dl Hep Bs Antibody, Quant 5 L (> OR = 10) mIU/mL Diagnostic Findings Chest X-Ray 08/13/23 06:00 XR chest 1V portable CLINICAL HISTORY: CHF TECHNIQUE: Single frontal radiograph of the chest was obtained. Comparison: Comparison is made to chest radiograph 08/11/2023 FINDINGS: No lines and tubes are seen. The cardiomediastinal silhouette is stable. Interval improvement in pulmonary edema with possibly residual edema versus airspace opacities. Atelectasis is noted in the right midlung. Moderate left pleural effusion and likely small right pleural effusion. IMPRESSION: 1. Stable moderate left and small right pleural effusion. 2. Interval improvement in pulmonary edema with significant residual edema versus aspiration/atelectasis/pneumonia. ACT 112: Negative or not required by law. Electronically signed by: Sudhakar Ambrose M.D. 08/13/2023 8:07 AM PG Care Time/CCT Total # of Minutes Spent Total Time Spent with Patient: Total time spent is greater than 50% in coordination of care (as documented) at patient's floor/unit and/or counseling patient: Coding Level of Care Code 91567 SUB INP/OBS CARE 2/35MIN Diagnoses Acute hypoxic respiratory failure J96.01 Acute kidney injury N17.9 Perforated abdominal viscus R19.8 Acute blood loss anemia D62 Bilateral hearing loss, unspecified hearing loss type H91.93 Hearing loss type: unspecified Laterality: bilateral Encephalopathy G93.40 Ulcerative pancolitis with abscess K51.014 Ulcerative colitis location: ulcerative pancolitis Digestive disease complication type: with abscess Acute diastolic congestive heart failure I50.31 (5) Hard of hearing Hearing loss type: unspecified Laterality: bilateral Qualified Code(s): H91.93 - Unspecified hearing loss, bilateral (7) Ulcerative colitis Ulcerative colitis location: ulcerative pancolitis Digestive disease complication type: with abscess Qualified Code(s): K51.014 - Ulcerative (chronic) pancolitis with abscess
[2023-08-13] MEDS: HEPARIN SOD (PORCINE) 1000 UNIT/ML IV SCH (14:46)
[2023-08-13] MEDS ORDERED: DAPTOmycin 300 MG in SYRINGE 0 ML IV ONE (18:00)
[2023-08-13] MEDS ORDERED: FLUCONAZOLE 100 MG/50 ML BAG IV ONE (18:00)
[2023-08-13] MEDS: MIRTAZAPINE TAB 15 MG TAB PO SCH (21:15)
[2023-08-13] MEDS: ACETAMINOPHEN 325 MG TAB PO PRN (21:16)
[2023-08-14] MEDS: PIPERACILLIN/TAZOBACTAM 4.5 GM in DEXTROSE 5% MINI-B 100 ML IV SCH ×2 (04:18→15:21)
[2023-08-14] MEDS: FAMOTIDINE 20 MG in SYRINGE 3 ML IV SCH ×2 (04:18→15:14)
[2023-08-14 07:11] LABS: Hematocrit (blood only) 25.8 % (42.0-52.0); Hemoglobin 8.3 g/dl (14.0-18.0); Mean Corpuscular Hgb Conc 32.2 g/dL (32.0-36.0); Mean Corpuscular Volume 90.2 fL (80.0-100.0); Mean Platelet Volume 10.2 fL (9.4-12.4); Platelet Count 290 K/uL (130-400); RDW Coefficient of Variation 16.7 % (11.5-14.5); RDW Standard Deviation 55.2 fL (36.4-46.3); Red Blood Count 2.86 M/uL (4.70-6.10); White Blood Count 6.28 K/ul (4.8-10.8)
[2023-08-14 07:32] LABS: BUN Creatinine Ratio 8.2 (10-20); Calcium 7.7 mg/dl (8.6-10.3); Creatinine Clr Calc Pharmacy 28.2 ml/min; Est GFR (African American) 21.4 ml/min; Est GFR (Non-African American) 18.4 ml/min; Potassium 3.8 mmol/L (3.5-5.1)
[2023-08-14] MEDS: amLODIPine BESYLATE 5 MG TAB PO SCH (08:54)
[2023-08-14] MEDS: HEPARIN SOD 5,000 UNIT/0.5 ML VIAL SQ SCH ×2 (08:55→21:18)
[2023-08-14] MEDS: PANTOprazole 40 MG in SYRINGE 0 ML IV SCH ×2 (08:57→21:14)
[2023-08-14] MEDS: ACETAMINOPHEN 325 MG TAB PO PRN (08:59)
[2023-08-14] MEDS: THIAMINE HCL 100 MG in SYRINGE 9 ML IV SCH (09:00)
--- NOTE | 2023-08-14 11:32 | Hospitalist Progress Note ---
Date of Service August 14, 2023 Assessment & Plan (1) Acute hypoxic respiratory failure: Plan: improved. Now on 4 L of nasal cannula saturating at 100%. Should be able to wean off of oxygen further Patient got dialyzed on 08/12 and 08/13 acute hypoxic respiratory failure is most likely due to acute diastolic congestive heart failure secondary to fluid overload and acute kidney injury Recent echocardiogram on 06/21 showed normal EF TPN discontinued on 08/11 (2) Acute kidney injury: Plan: First noted 07/25-maybe atn due to poor po intake, ain from meds not likely as no WBCs on UA, could be OSWALDO from CT scans and ATN from infection patient got volume overloaded with minimal response to several doses of IV diuretics Femoral vein temporary dialysis catheter placed. Patient got started on dialysis. Dialyzed on 08/12, 08/13 Ditcher on board (3) Perforated abdominal viscus: Plan: Patient with recent diagnosis of Ulcerative pancolitis, and had sessile polyp biopsied along with other biopsies on a colonoscopy during previous admission. Presented with free air, to OR 06/28/23 with subtotal colon resection with rectal stump remaining, and ileostomy. Three areas of perforation were identified, abscess and feculent material seen. Pseudomonas, Staphylococcus aureus, and Enterococcus faecium as well as Mariely albicans isolated. RUQ drain has been removed. IR drain remains and continues to drain in LUQ manipulated on 07/23/[address] scan 07/19 shows persistent fluid collections consistent with abscess 07/23/2023 shows a leukocytosis hence the drain manipulation Repeat abdominal CT on 08/02 with improving size and multiple abscesses but still one that is large 9 cm- discussed with IR not possible as drain additional larger pocket as loculated other pockets too small Wound vac remains in place over LLQ P.o. intake has improved Since 08/13. Patient is eating his meals. TPN discontinued. Poor p.o. intake likely had a lot to do with his renal failure and encephalopathy Appreciate infectious disease recommendations -continue daptomycin, renally adjusted fluconazole through 08/30/23 w/ reevaluation for likely extension with CT abd/pel prior to that around 08/16- 08/23 to see if needs further IR drainage or drain manipulation Switched cefepime to IV Zosyn 08/10 due to concern for cefepime induced neurotoxicity. Patient was getting increasingly lethargic. spoke to infectious disease and nephrology who are both okay with the switch - Discontinued metronidazole after completing course on 08/10 -started Remeron 7.5mg po hs for appetite stimulant and in case depression causing poor appetite reglan scheduled for post prandial nausea -Check CK once weekly (Last done on 08/10) while on daptomycin, follow CBC, BMP -gave 6 doses of IV thiamine high-dose to prevent Wernicke encephalopathy in case of deficiency given severe malnutrition while on D5-revert back to 100mg daily CT abdomen 08/09 unremarkable (4) Acute blood loss anemia: Plan: Postoperatively. No bleeding noted from anywhere B12, folate, iron studies normal TSH mildly elevated and free T4 mildly low-follow likely from chronic disease follow CBC Hemoglobin low 08/12 Ordered 1 unit of blood during dialysis (5) Hard of hearing: Plan: Supportive care, wears hearing device (6) Encephalopathy: Plan: Acute encephalopathy, probably metabolic. Now resolved. Continue supportive care. Head CT scan negative. patient likely developed uremic encephalopathy with asterixis. Encephalopathy seems to be improving with this dialysis. he got dialyzed for 2 days in a row. Anticipate further improvement in encephalopathy Due to concern for cefepime induced neurotoxicity, switched to IV Zosyn on 08/10 (7) Ulcerative colitis: Plan: Patient with ulcerative colitis diagnosed by colonoscopy in 06/2023 Now status post subtotal colectomy with only rectal stump remaining No treatment needed at this point but will need continued surveillance for colorectal CA of the rectal stump Will need follow-up with GI as an outpatient (8) Acute diastolic congestive heart failure: Plan: Please see problem #1 Plan Dispo-continued stay Extensive discussion with the fdc system -current plan in place to be the patient returns to the fdc when medically stable Patient will then have supplies to continue antibiotic care at [place] but with eventual transition to [facility] fdc system which is a more robust medical facility Admission and Anticipated Discharge Date Admission Date: June 28, 2023 Subjective patient is more awake and alert. He is tolerating his diet. He feels stronger in general and has more dexterity back. He is able to do more with his hands which he was not able to do in the last few days. He was too weak to move his hands, to feed himself, to hold the urinal, to put on the hearing aid. His hand movements are more coordinated today. Review of Systems Review of Systems: All systems reviewed & are unremarkable except as noted in Subjective Physical Exam Physical Exam: General: awake, conversant. Hard of hearing Heart: S1, S2/regular rate and rhythm, no murmur rubs or gallops Lungs: clear to auscultation bilaterally. Normal effort Abdomen: Soft/nondistended. Mild tenderness to palpation in the abdomen diffusely. No hepatosplenomegaly. Colostomy bag in place. Extremities: No clubbing/cyanosis. Trace bilateral edema Behavior: Appropriate, cooperative Results & Data Results & Data Vital Signs (Past 12 Hours) Vital Signs Temp Pulse Pulse Pulse Resp BP BP 08/14/23 08:02 36.6 C 101 H 21 129/79 08/14/23 07:58 08/14/23 03:00 36.8 C 101 H 24 131/92 08/14/23 01:00 100 H Pulse Ox O2 Del Method O2 Flow Rate 08/14/23 08:02 94 Nasal Cannula 4 08/14/23 07:58 High Flow Nasal Cannula 4 08/14/23 03:00 100 High Flow Nasal Cannula 08/14/23 01:00 Laboratory Results Abnormal lab results 08/14/23 Range/Units 05:52 RBC 2.86 L (4.70-6.10) M/uL Hgb 8.3 L (14.0-18.0) g/dl Hct 25.8 L (42.0-52.0) % RDW Std Deviation 55.2 H (36.4-46.3) fL RDW Coeff of Ashley 16.7 H (11.5-14.5) % BUN 29 H (6-23) mg/dl Creatinine 3.54 H (0.6-1.4) mg/dl BUN/Creatinine Ratio 8.2 L (10-20) Calcium 7.7 L (8.6-10.3) mg/dl PG Care Time/CCT Total # of Minutes Spent Total Time Spent with Patient: Total time spent is greater than 50% in coordination of care (as documented) at patient's floor/unit and/or counseling patient: Coding Level of Care Code 19338 SUB INP/OBS CARE 2/35MIN Diagnoses Acute hypoxic respiratory failure J96.01 Acute kidney injury N17.9 Perforated abdominal viscus R19.8 Acute blood loss anemia D62 Bilateral hearing loss, unspecified hearing loss type H91.93 Hearing loss type: unspecified Laterality: bilateral Encephalopathy G93.40 Ulcerative pancolitis with abscess K51.014 Ulcerative colitis location: ulcerative pancolitis Digestive disease complication type: with abscess Acute diastolic congestive heart failure I50.31 (5) Hard of hearing Hearing loss type: unspecified Laterality: bilateral Qualified Code(s): H91.93 - Unspecified hearing loss, bilateral (7) Ulcerative colitis Ulcerative colitis location: ulcerative pancolitis Digestive disease complication type: with abscess Qualified Code(s): K51.014 - Ulcerative (chronic) pancolitis with abscess
--- NOTE | 2023-08-14 12:06 | Nephrology Progress Note ---
Date of Service August 14, 2023 Assessment & Plan (1) Acute kidney injury: (2) Acute hypoxic respiratory failure: (3) Intra-abdominal abscess: (4) Acute blood loss anemia: (5) Megacolon, toxic: (6) Ileostomy in place: (7) Ulcerative colitis: Plan 53 y o m admitted with Toxic megacolon with new diagnosis of ulcerative colitis, s/p exploratory laparotomy on 06/28/23. Found to have multiple intra-abdominal abscesses and had multiple CT with IV contrast over last 1 month. Also has been multiple courses of antibiotic including cefepime, caspofungin, currently on Zosyn, daptomycin and fluconazole for MRSA and Pseudomonas intra-abdominal infection and abscess. Developed DERIK over last few days with otherwise normal kidney function over last few weeks, creatinine was 0.9 until 07/21/2023. Creatinine was noted to be 2.3 on 07/25/2023 and has been progressively worsen ing and up to 2.9 this morning. Urinalysis with proteinuria but no hematuria or pyuria. Renal ultrasound was otherwise unremarkable. Renal function progressively worsen and became volume overloaded and started on dialysis on 08/12/2023 mainly for volume overload. Has femoral dialysis catheter which has not been functioning well. Had 6 L UF. Electrolyte acceptable today. --Continue to monitor over the weekend for any need for dialysis. If renal function improving volume status stays stable, will remove femoral catheter. However if progressive worsening of renal function dialysis, will need tunneled dialysis catheter Wednesday. --avoid all NSAIDs --Dose medications for eGFR less than 10 Will follow. Admission and Anticipated Discharge Date Admission Date: June 28, 2023 Sean Galan was seen and evaluated this morning. He reports overall feeling better. Had ocvd-[id number]-[id number] dialysis last 2 days and had total 6 L UF although catheter has not been functioning well. Electrolyte acceptable today. Overall volume status improved. Blood pressure acceptable. Review of Systems Review of Systems: Detail ROS was otherwise unremarkable except mentioned above.. Physical Exam Constitutional: WD/WN, vitals as above + ill appearing and + cachectic; no acute distress Eyes: + anicteric sclerae Neck: normal visual inspection Respiratory: no respiratory distress Auscultation: lungs clear to auscultation bilaterally Cardiovascular: RRR, no murmur, no edema Extremities: + vascular access device (left femoral catheter) Musculoskeletal: Extremities: + muscle atrophy Skin: no rashes, warm and dry Neurologic: no focal motor deficits Psychiatric: Orientation: alert and oriented x 3 Affect: euthymic affect Results & Data Vital Signs (Past 12 Hours) Vital Signs Temp Pulse Pulse Pulse Resp BP BP 08/14/23 11:26 36.6 C 97 H 19 129/85 08/14/23 08:02 36.6 C 101 H 21 129/79 08/14/23 07:58 08/14/23 03:00 36.8 C 101 H 24 131/92 08/14/23 01:00 100 H Pulse Ox O2 Del Method O2 Flow Rate 08/14/23 11:26 100 Nasal Cannula 4 08/14/23 08:02 94 Nasal Cannula 4 08/14/23 07:58 High Flow Nasal Cannula 4 08/14/23 03:00 100 High Flow Nasal Cannula 08/14/23 01:00 PG Care Time/CCT Total # of Minutes Spent Total Time Spent with Patient: Total time spent is greater than 50% in coordination of care (as documented) at patient's floor/unit and/or counseling patient: Coding Level of Care Code 87698 SUB INP/OBS CARE 2/35MIN Diagnoses Acute kidney injury N17.9 Acute hypoxic respiratory failure J96.01 Intra-abdominal abscess K65.1 Acute blood loss anemia D62 Megacolon, toxic K59.[address] Z93.2 Ulcerative pancolitis with abscess K51.014 Ulcerative colitis location: ulcerative pancolitis Digestive disease complication type: with abscess (7) Ulcerative colitis Ulcerative colitis location: ulcerative pancolitis Digestive disease complication type: with abscess Qualified Code(s): K51.014 - Ulcerative (chronic) pancolitis with abscess
[2023-08-14] MEDS: ACETAMINOPHEN 325 MG TAB PO SCH ×3 (14:23→23:33)
[2023-08-14] MEDS: FLUCONAZOLE 200 MG/100 ML BAG IV SCH ×2 (19:47→20:58)
[2023-08-14] MEDS: MIRTAZAPINE TAB 15 MG TAB PO SCH (21:15)
[2023-08-15] MEDS: FAMOTIDINE 20 MG in SYRINGE 3 ML IV SCH ×2 (03:23→16:36)
[2023-08-15] MEDS: PIPERACILLIN/TAZOBACTAM 4.5 GM in DEXTROSE 5% MINI-B 100 ML IV SCH ×2 (05:00→16:36)
[2023-08-15] MEDS: ACETAMINOPHEN 325 MG TAB PO SCH (05:24)
[2023-08-15] MEDS: HEPARIN SOD 5,000 UNIT/0.5 ML VIAL SQ SCH ×2 (07:23→19:59)
[2023-08-15] MEDS: amLODIPine BESYLATE 5 MG TAB PO SCH (08:35)
[2023-08-15] MEDS: THIAMINE HCL 100 MG in SYRINGE 9 ML IV SCH (08:36)
[2023-08-15] MEDS: PANTOprazole 40 MG in SYRINGE 0 ML IV SCH ×2 (08:36→20:01)
[2023-08-15 10:38] LABS: Albumin Level 2.2 gm/dl (3.4-5.0); BUN Creatinine Ratio 8.1 (10-20); Calcium 7.5 mg/dl (8.6-10.3); Creatinine Clr Calc Pharmacy 15.6 ml/min; Est GFR (African American) 14.7 ml/min; Est GFR (Non-African American) 12.7 ml/min; Phosphorus 3.2 mg/dl (2.5-4.9); Potassium 3.8 mmol/L (3.5-5.1)
--- NOTE | 2023-08-15 12:01 | Nephrology Progress Note ---
Date of Service August 15, 2023 Assessment & Plan (1) Acute kidney injury: (2) Acute hypoxic respiratory failure: (3) Intra-abdominal abscess: (4) Acute blood loss anemia: (5) Megacolon, toxic: (6) Ileostomy in place: (7) Ulcerative colitis: Plan 53 y o m admitted with Toxic megacolon with new diagnosis of ulcerative colitis, s/p exploratory laparotomy on 06/28/23. Found to have multiple intra-abdominal abscesses and had multiple CT with IV contrast over last 1 month. Also has been multiple courses of antibiotic including cefepime, caspofungin, currently on Zosyn, daptomycin and fluconazole for MRSA and Pseudomonas intra-abdominal infection and abscess. Developed DERIK over last few days with otherwise normal kidney function over last few weeks, creatinine was 0.9 until 07/21/2023. Creatinine was noted to be 2.3 on 07/25/2023 and has been progressively worsen ing and up to 2.9 this morning. Urinalysis with proteinuria but no hematuria or pyuria. Renal ultrasound was otherwise unremarkable. Renal function progressively worsen and became volume overloaded and started on dialysis on 08/12/2023 mainly for volume overload. Has femoral dialysis catheter which has not been functioning well. Had 6 L UF. Rapid rise in creatinine off of dialysis over the weekend and remained oliguric although electrolyte and volume status reasonable. -- Consult vascular surgery for tunneled dialysis catheter catheter tomorrow as femoral dialysis catheter has not been functioning well. Dialysis after TDC placement --avoid all NSAIDs --Dose medications for eGFR less than 10 Will follow. Admission and Anticipated Discharge Date Admission Date: June 28, 2023 Sean Galan was seen and evaluated this morning. He reports overall feeling about the same. Had nvdi-bm-wvuf dialysis last 2 days and had total 6 L UF although catheter has not been functioning well. Sharp rise in creatinine off dialysis over the weekend. overall volume status acceptable. Blood pressure acceptable. Review of Systems Review of Systems: Detailed review of system was done and pertinent positives and negatives were mentioned above. Physical Exam Constitutional: WD/WN, vitals as above + ill appearing and + cachectic Eyes: + anicteric sclerae Neck: normal visual inspection Respiratory: no respiratory distress Auscultation: lungs clear to auscultation bilaterally Cardiovascular: RRR, no murmur, no edema Extremities: + vascular access device (left femoral catheter) Gastrointestinal (Abdomen): Percussion/Palpation: abdomen soft Musculoskeletal: Extremities: extremities normal to inspection and + muscle atrophy Skin: no rashes, warm and dry Neurologic: no focal motor deficits Psychiatric: Orientation: alert and oriented x 3 Affect: euthymic affect Results & Data Vital Signs (Past 12 Hours) Vital Signs Temp Pulse Pulse Pulse Resp BP BP 08/15/23 11:22 36.6 C 104 H 17 132/85 08/15/23 08:00 08/15/23 08:00 93 H 08/15/23 07:36 36.7 C 95 H 18 144/82 H 08/15/23 03:00 36.3 C L 96 H 16 130/89 Pulse Ox O2 Del Method O2 Flow Rate 08/15/23 11:22 96 Room Air 08/15/23 08:00 Room Air 08/15/23 08:00 08/15/23 07:36 94 Nasal Cannula 4 08/15/23 03:00 92 Room Air PG Care Time/CCT Total # of Minutes Spent Total Time Spent with Patient: Total time spent is greater than 50% in coordination of care (as documented) at patient's floor/unit and/or counseling patient: Coding Level of Care Code 91384 SUB INP/OBS CARE 2/35MIN Diagnoses Acute kidney injury N17.9 Acute hypoxic respiratory failure J96.01 Intra-abdominal abscess K65.1 Acute blood loss anemia D62 Megacolon, toxic K59.[address] Z93.2 Ulcerative pancolitis with abscess K51.014 Ulcerative colitis location: ulcerative pancolitis Digestive disease complication type: with abscess (7) Ulcerative colitis Ulcerative colitis location: ulcerative pancolitis Digestive disease complication type: with abscess Qualified Code(s): K51.014 - Ulcerative (chronic) pancolitis with abscess
--- NOTE | 2023-08-15 12:37 | Hospitalist Progress Note ---
Date of Service August 15, 2023 Assessment & Plan (1) Acute hypoxic respiratory failure: Plan: improved. Now on 4 L of nasal cannula saturating at 100%. Should be able to wean off of oxygen further Patient got dialyzed on 08/12 and 08/13 acute hypoxic respiratory failure is most likely due to acute diastolic congestive heart failure secondary to fluid overload and acute kidney injury Recent echocardiogram on 06/21 showed normal EF TPN discontinued on 08/11 (2) Acute kidney injury: Plan: First noted 07/25-maybe atn due to poor po intake, ain from meds not likely as no WBCs on UA, could be OSWALDO from CT scans and ATN from infection patient got volume overloaded with minimal response to several doses of IV diuretics Femoral vein temporary dialysis catheter placed. Patient got started on dialysis. Dialyzed on 08/12, 08/13 Surgical Coder on board Rapid rise of creatinine over the weekend. Determined that the patient will need further dialysis. Surgical Coder consulted vascular surgery for a new line to be placed as the femoral dialysis catheter is not working well. (3) Perforated abdominal viscus: Plan: Patient with recent diagnosis of Ulcerative pancolitis, and had sessile polyp biopsied along with other biopsies on a colonoscopy during previous admission. Presented with free air, to OR 06/28/23 with subtotal colon resection with rectal stump remaining, and ileostomy. Three areas of perforation were identified, abscess and feculent material seen. Pseudomonas, Staphylococcus aureus, and Enterococcus faecium as well as Mariely albicans isolated. RUQ drain has been removed. IR drain remains and continues to drain in LUQ manipulated on 07/23/[address] scan 07/19 shows persistent fluid collections consistent with abscess 07/23/2023 shows a leukocytosis hence the drain manipulation Repeat abdominal CT on 08/02 with improving size and multiple abscesses but stil l one that is large 9 cm- discussed with IR not possible as drain additional larger pocket as loculated other pockets too small Wound vac remains in place over LLQ P.o. intake has improved Since 08/13. Patient is eating his meals. TPN discontinued. Poor p.o. intake likely had a lot to do with his renal failure and encephalopathy Appreciate infectious disease recommendations -continue daptomycin, renally adjusted fluconazole through 08/30/23 w/ reevaluation for likely extension with CT abd/pel prior to that around 08/16- 08/23 to see if needs further IR drainage or drain manipulation Switched cefepime to IV Zosyn 08/10 due to concern for cefepime induced neurotoxicity. Patient was getting increasingly lethargic. spoke to infectious disease and nephrology who are both okay with the switch - Discontinued metronidazole after completing course on 08/10 - Patient was started on Remeron 7.5mg po hs for appetite stimulant and in case depression causing poor appetite reglan scheduled for post prandial nausea -Check CK once weekly (Last done on 08/10) while on daptomycin, follow CBC, BMP -gave 6 doses of IV thiamine high-dose to prevent Wernicke encephalopathy in case of deficiency given severe malnutrition while on D5-revert back to 100mg daily CT abdomen 08/09 unremarkable (4) Acute blood loss anemia: Plan: Postoperatively. No bleeding noted from anywhere B12, folate, iron studies normal TSH mildly elevated and free T4 mildly low-follow likely from chronic disease follow CBC Hemoglobin low 08/12 Ordered 1 unit of blood during dialysis (5) Hard of hearing: Plan: Supportive care, wears hearing device (6) Encephalopathy: Plan: Acute encephalopathy, probably metabolic. Now resolved. Continue supportive care. Head CT scan negative. patient likely developed uremic encephalopathy with asterixis. Encephalopathy seems to be improving with this dialysis. he got dialyzed for 2 days in a row. Anticipate further improvement in encephalopathy Due to concern for cefepime induced neurotoxicity, switched to IV Zosyn on 08/10 (7) Ulcerative colitis: Plan: Patient with ulcerative colitis diagnosed by colonoscopy in 06/2023 Now status post subtotal colectomy with only rectal stump remaining No treatment needed at this point but will need continued surveillance for colorectal CA of the rectal stump Will need follow-up with GI as an outpatient (8) Acute diastolic congestive heart failure: Plan: Please see problem #1 Plan Dispo-continued stay Extensive discussion with the shelter system -current plan in place to be the patient returns to the shelter when medically stable Patient will then have supplies to continue antibiotic care at [place] but with eventual transition to [facility] shelter system which is a more robust medical facility Admission and Anticipated Discharge Date Admission Date: June 28, 2023 Subjective per oracle application architect, patient has been hallucinating. He is able to answer my questions appropriately. However he had been hallucinating earlier. patient has had a good appetite. Review of Systems Review of Systems: All systems reviewed & are unremarkable except as noted in Subjective Physical Exam Physical Exam: General: awake, conversant. Hard of hearing Heart: S1, S2/regular rate and rhythm, no murmur rubs or gallops Lungs: clear to auscultation bilaterally. Normal effort Abdomen: Soft/nondistended. Mild tenderness to palpation in the abdomen diffusely. No hepatosplenomegaly. Colostomy bag in place. Drain in place Extremities: No clubbing/cyanosis. Trace bilateral edema Behavior: Appropriate, cooperative Results & Data Results & Data Vital Signs (Past 12 Hours) Vital Signs Temp Pulse Pulse Pulse Resp BP BP 08/15/23 11:22 36.6 C 104 H 17 132/85 08/15/23 08:00 08/15/23 08:00 93 H 08/15/23 07:36 36.7 C 95 H 18 144/82 H 08/15/23 03:00 36.3 C L 96 H 16 130/89 Pulse Ox O2 Del Method O2 Flow Rate 08/15/23 11:22 96 Room Air 08/15/23 08:00 Room Air 08/15/23 08:00 08/15/23 07:36 94 Nasal Cannula 4 08/15/23 03:00 92 Room Air Laboratory Results Abnormal lab results 08/15/23 Range/Units 09:33 BUN 39 H (6-23) mg/dl Creatinine 4.83 H* D (0.6-1.4) mg/dl BUN/Creatinine Ratio 8.1 L (10-20) Calcium 7.5 L (8.6-10.3) mg/dl Albumin 2.2 L (3.4-5.0) gm/dl PG Care Time/CCT Total # of Minutes Spent Total Time Spent with Patient: Total time spent is greater than 50% in coordination of care (as documented) at patient's floor/unit and/or counseling patient: Coding Level of Care Code 90169 SUB INP/OBS CARE 2/35MIN Diagnoses Acute hypoxic respiratory failure J96.01 Acute kidney injury N17.9 Perforated abdominal viscus R19.8 Acute blood loss anemia D62 Bilateral hearing loss, unspecified hearing loss type H91.93 Hearing loss type: unspecified Laterality: bilateral Encephalopathy G93.40 Ulcerative pancolitis with abscess K51.014 Ulcerative colitis location: ulcerative pancolitis Digestive disease complication type: with abscess Acute diastolic congestive heart failure I50.31 (5) Hard of hearing Hearing loss type: unspecified Laterality: bilateral Qualified Code(s): H91.93 - Unspecified hearing loss, bilateral (7) Ulcerative colitis Ulcerative colitis location: ulcerative pancolitis Digestive disease complication type: with abscess Qualified Code(s): K51.014 - Ulcerative (chronic) pancolitis with abscess
[2023-08-15] MEDS: FLUCONAZOLE 200 MG/100 ML BAG IV SCH (18:59)
[2023-08-15] MEDS: DAPTOmycin 600 MG in SYRINGE 0 ML IV SCH (19:00)
[2023-08-15] MEDS: ACETAMINOPHEN 325 MG TAB PO PRN (20:01)
[2023-08-15] MEDS: MIRTAZAPINE TAB 15 MG TAB PO SCH (20:02)
[2023-08-16] MEDS: FAMOTIDINE 20 MG in SYRINGE 3 ML IV SCH ×2 (03:38→16:03)
[2023-08-16] MEDS: PIPERACILLIN/TAZOBACTAM 4.5 GM in DEXTROSE 5% MINI-B 100 ML IV SCH ×2 (04:37→16:04)
[2023-08-16 07:03] LABS: Albumin Level 2.2 gm/dl (3.4-5.0); BUN Creatinine Ratio 8.2 (10-20); Creatinine Clr Calc Pharmacy 10.6 ml/min; Est GFR (African American) 11.3 ml/min; Est GFR (Non-African American) 9.8 ml/min; Phosphorus 3.3 mg/dl (2.5-4.9)
[2023-08-16] MEDS: HEPARIN SOD 5,000 UNIT/0.5 ML VIAL SQ SCH ×2 (07:45→20:39)
[2023-08-16] MEDS: PANTOprazole 40 MG in SYRINGE 0 ML IV SCH ×2 (07:47→20:29)
[2023-08-16] MEDS: THIAMINE HCL 100 MG in SYRINGE 9 ML IV SCH (07:47)
--- NOTE | 2023-08-16 09:49 | Consultation ---
Date of Consultation August 16, 2023 Assessment & Plan (1) Acute kidney injury: Pt with continued DERIK and continnues to require HD. femoral line not functioning. Permcath insertion scheduled for later this AM. Procedure, risks, benefits, and alternatives discussed with pt by myself at Dr Kamara's request. Pt expresses understanding and agreement to proceed. Patient was seen, examined, and chart reviewed. Agree with exam and treatment plan of the Vascular PA. History of Present Illness Reason for Consultation: DERIK Attending Physician: Iris Reyes MD History of Present Illness 53 yo incarcerated m with hx of ulcerative colitis, admitted 06/28/23 with perforated viscous and sepsis, underwent ex lap with subtotal colectomy and ileostomy, found to have DERIK post operatively, seen in consultation today for permcath insertion for HD. Pt has been undergoing HD via femoral temp line, which became nonfunctional this weekend. He continues to require HD. Pt is somwehat confused, but is oriented x3. Denies NEAL, fever, chest pain, SOB, abd pain, N/V, rest pain, claudication, other complaints. Allergies Allergy/AdvReac Type Severity Reaction Status Date / Time No Known Allergies Allergy Verified 06/14/23 10:21 Home Medications Medication Instructions Recorded Confirmed Type mesalamine 4 gram/60 mL enema 4 g (60 mL) [place] HS 1 month #1,800 mL 06/22/23 06/28/23 Rx mesalamine 800 mg tablet,delayed 1,600 mg (2 x 800 mg) PO TID 1 06/22/23 06/28/23 Rx release month #180 tabs prednisone 20 mg tablet 40 mg (2 x 20 mg) PO DAILY 1 month 06/22/23 06/28/23 Rx #60 tabs Patient History Medical History Ileostomy in place Abnormal colonoscopy Hard of hearing Ulcerative colitis Encounter for pre-operative examination Surgical History S/P colon resection Social History Smoking Status: Unknown if ever smoked Tobacco Type: Cigarettes Hx Alcohol Use: No Hx Substance Use: No Preferred Language: Bhutanese Communication Ability: Effective Production Gear Cutter Required: No Beliefs That Will Affect Care: None Current Living Situation: Other Current Living Situation Comment: [facility] Feels Safe at Home: Yes Assistive Devices: Hearing Aid - Left and Hearing Aid - Right Review of Systems Review of Systems: All systems reviewed & are unremarkable except as noted in HPI & below Physical Exam Constitutional: WD/WN, vitals as above cooperative; not in distress ENMT: Ears: + hearing impairment (severe) Neck: trachea midline Respiratory: normal respiratory effort, lungs clear to auscultation Auscultation: + diminished lung sounds Cardiovascular: Rate/Rhythm: regular rate and regular rhythm Vessels: posterior tibial pulses present, dorsalis pedis pulses present and radial pulses present; + abnormal peripheral pulses Extremities: normal capillary refill Gastrointestinal (Abdomen): Inspection/Auscultation: + abdomen abnormal to inspection (lap incision, ileostomy) Percussion/Palpation: + abdomen tender and abdomen soft Musculoskeletal: no cyanosis or clubbing, extremities motor strength 5/5 Skin: no rashes, warm and dry Neurologic: moves all extremities, awake and + confused; no focal motor deficits Psychiatric: Orientation: alert, oriented x 3 and cooperative Eye Contact: good eye contact Results & Data Vital Signs (Past 12 Hours) Vital Signs Temp Pulse Pulse Pulse Resp BP BP 08/16/23 08:03 36.7 C 100 H 20 136/93 08/15/23 23:00 102 H 08/15/23 23:00 36.4 C L 110 H 15 134/91 Pulse Ox O2 Del Method 08/16/23 08:03 94 Room Air 08/15/23 23:00 08/15/23 23:00 95 Room Air
--- NOTE | 2023-08-16 10:29 | Nephrology Progress Note ---
Date of Service August 16, 2023 Assessment & Plan (1) Acute kidney injury: (2) Acute hypoxic respiratory failure: (3) Intra-abdominal abscess: (4) Acute blood loss anemia: (5) Megacolon, toxic: (6) Ileostomy in place: (7) Ulcerative colitis: Plan 53 y o m admitted with Toxic megacolon with new diagnosis of ulcerative colitis, s/p exploratory laparotomy on 06/28/23. Found to have multiple intra-abdominal abscesses and had multiple CT with IV contrast over last 1 month. Also has been multiple courses of antibiotic including cefepime, caspofungin, currently on Zosyn, daptomycin and fluconazole for MRSA and Pseudomonas intra-abdominal infection and abscess. Developed DERIK over last few days with otherwise normal kidney function over last few weeks, creatinine was 0.9 until 07/21/2023. Creatinine was noted to be 2.3 on 07/25/2023 and has been progressively worsen ing and up to 2.9 this morning. Urinalysis with proteinuria but no hematuria or pyuria. Renal ultrasound was otherwise unremarkable. Renal function progressively worsen and became volume overloaded and started on dialysis on 08/12/2023 mainly for volume overload. Has femoral dialysis catheter which has not been functioning well. Had 6 L UF. Rapid rise in creatinine off of dialysis over the weekend and remained oliguric although electrolyte and volume status reasonable. --tunneled dialysis catheter this am and then dialysis. --avoid all NSAIDs --Dose medications for eGFR less than 10 Will follow. Admission and Anticipated Discharge Date Admission Date: June 28, 2023 Sean Galan was seen and evaluated this morning. He reports overall feeling about the same. Waiting for TDC this morning and then HD. overall volume status acceptable. Blood pressure acceptable. Review of Systems Review of Systems: Detailed review of system was done and pertinent positives and negatives were mentioned above. Physical Exam Constitutional: WD/WN, vitals as above + ill appearing and + cachectic Eyes: + anicteric sclerae Neck: normal visual inspection Respiratory: no respiratory distress Auscultation: lungs clear to auscultation bilaterally Cardiovascular: RRR, no murmur, no edema Extremities: + vascular access device (left femoral catheter) Gastrointestinal (Abdomen): Percussion/Palpation: abdomen soft Musculoskeletal: Extremities: extremities normal to inspection and + muscle atrophy Skin: no rashes, warm and dry Neurologic: no focal motor deficits Psychiatric: Orientation: alert and oriented x 3 Affect: euthymic affect Results & Data Vital Signs (Past 12 Hours) Vital Signs Temp Pulse Pulse Pulse Resp BP BP 08/16/23 08:03 36.7 C 100 H 20 136/93 08/15/23 23:00 102 H 08/15/23 23:00 36.4 C L 110 H 15 134/91 Pulse Ox O2 Del Method 08/16/23 08:03 94 Room Air 08/15/23 23:00 08/15/23 23:00 95 Room Air PG Care Time/CCT Total # of Minutes Spent Total Time Spent with Patient: Total time spent is greater than 50% in coordination of care (as documented) at patient's floor/unit and/or counseling patient: Coding Level of Care Code 48437 SUB INP/OBS CARE 2/35MIN Diagnoses Acute kidney injury N17.9 Acute hypoxic respiratory failure J96.01 Intra-abdominal abscess K65.1 Acute blood loss anemia D62 Megacolon, toxic K59.[address] Z93.2 Ulcerative pancolitis with abscess K51.014 Ulcerative colitis location: ulcerative pancolitis Digestive disease complication type: with abscess (7) Ulcerative colitis Ulcerative colitis location: ulcerative pancolitis Digestive disease complication type: with abscess Qualified Code(s): K51.014 - Ulcerative (chronic) pancolitis with abscess
[2023-08-16] MEDS: amLODIPine BESYLATE 5 MG TAB PO SCH (11:42)
[2023-08-16] MEDS ORDERED: LIDOCAINE 1% LOCAL 20 ML VIAL ONE (12:31)
[2023-08-16] MEDS ORDERED: HEPARIN SOD (PORCINE) 5,000 UNITS/ML VIAL ONE (12:31)
--- NOTE | 2023-08-16 12:51 | Pre Anesthesia Assessment ---
Date of Service August 16, 2023 Pre Sedation Assessment Vital Signs Temp Pulse Pulse Pulse Resp BP BP 08/16/23 12:05 37.0 C 90 20 128/89 08/16/23 11:40 103 H 08/16/23 11:24 08/16/23 08:03 36.7 C 100 H 20 136/93 08/15/23 23:00 102 H 08/15/23 23:00 36.4 C L 110 H 15 134/91 08/15/23 20:00 08/15/23 19:00 36.6 C 112 H 12 138/89 08/15/23 15:45 36.5 C 116 H 17 142/88 H 08/15/23 15:13 102 H Pulse Ox O2 Del Method 08/16/23 12:05 98 Room Air 08/16/23 11:40 08/16/23 11:24 Room Air 08/16/23 08:03 94 Room Air 08/15/23 23:00 08/15/23 23:00 95 Room Air 08/15/23 20:00 Room Air 08/15/23 19:00 97 Room Air 08/15/23 15:45 93 Room Air 08/15/23 15:13 Cardiovascular RRR, no murmur, no edema Respiratory normal respiratory effort, lungs clear to auscultation Pre-Sedation Airway Assessment Smoking Status: Unknown if ever smoked Hx Sleep Apnea: No Short, Thick Neck: No Thyromental Distance: > or= 3.5 Finger Breadths Oral Cavity: + WNL Mallampati Class: II ASA: ASA4 NPO Status Date of Last Intake of Fluids: 08/15/23 Time of Last Intake of Fluids: 22:00 Date of Last Intake of Solid Food: 08/15/23 Time of Last Intake of Solid Foods: 17:00 Procedure Planning Contraindications for Sedation: none Current Medications Reviewed: Yes Notes The planned sedation has been discussed with the patient. Informed Consent was obtained. I have identified the patient, determined the appropriateness of sedation and have assessed the patient immediately prior to the procedure. All medicine(s) and interventions are by my order.
[2023-08-16] MEDS ORDERED: fentaNYL citrate PF 100 MCG/2 ML VIAL ONE ×3 (12:53→14:16)
[2023-08-16] MEDS ORDERED: MIDAZOLAM HCL 1 MG/ML 2ML VIAL ONE ×3 (12:53→14:16)
--- NOTE | 2023-08-16 13:30 | Post Operative Brief Note ---
Immediate Post Op Note v1 Date of Surgery August 16, 2023 Pre & Post Diagnosis Operation Date: 08/16/23 08:20 Pre-Op Diagnosis: Acute Kidney Injury Post-Op Diagnosis: Acute Kidney Injury I identified the patient and participated in the time-out.: Yes Procedure Operation Date: 08/16/23 08:20 Actual Procedures p Insertion of Perm Catheter, Right Jugular Vein, Ultrasund Localization to Right Jugular Vein, Fluoroscopy for Positioning, Moderate Sedation 1300-(Right) - Gregorio Kamara MD Surgeon Gregorio Kamara MD Glass Mould Cleaner Saray Mary Estimated Blood Loss 5 Findings Consistent with Post-Op Diagnosis Drains Mondragon Catheter and Denzel-Armas Drain (15f round.) Anesthesia Type RN Sedation Complications none Disposition Accompanied Patient To Recovery: No Disposition: Recovery Room
--- NOTE | 2023-08-16 13:34 | Operative Report ---
Post Operative Report Pre & Post Diagnosis Operation Date: 08/16/23 08:20 Pre-Op Diagnosis: Acute Kidney Injury Post-Op Diagnosis: Acute Kidney Injury I identified the patient and participated in the time-out.: Yes Procedure Operation Date: 08/16/23 08:20 Actual Procedures p Insertion of Perm Catheter, Right Jugular Vein, Ultrasund Localization to Ri ght Jugular Vein, Fluoroscopy for Positioning, Moderate Sedation 1300- 1450(Right) - Gregorio Kamara MD Surgeon Gregorio Kamara MD Boiler Fitter Saray Mary Estimated Blood Loss 25 Findings See Below Perm Catheter visualized under fluoroscopy and in appropriate position Fluids Please see anesthesia record Specimens None Drains 14.5 PermCath Right Internal Jugular Vein Anesthesia Type RN Sedation Complications None immediately evident Disposition Accompanied Patient To Recovery: Yes Indications Need for hemodialysis Description of Procedure Patient was taken to the angio suite and placed in the supine position. The right side of the neck and chest wall were prepped and draped in a sterile manner. Local anesthesia was then administered to the appropriate areas of the neck and chest wall. Ultrasound was then used to locate the right internal jugular vein. The vein compressed easily, had no filling defects, and was patent. The vein was then punctured under direct ultrasound imaging. A guidewire was then passed centrally under fluoroscopic imaging. A stab wound was then made in the anterior chest wall and a 19 cm permcath was passed from the stab wound on the chest wall to the puncture site on the neck. The puncture site was then dilated till the 14Fr peel away sheath was inserted. The 14.5F permcath was then inserted through the sheath to a central position in the distal superior vena cava. The peel away sheath was then removed. The catheter was then sutured in place using nylon sutures. The puncture was then closed using a 4-0 Vicryl subcuticular suture. Dermabond was used as a dressing over the puncture site. Both ports aspirated and flushed easily and were then packed with heparin. A sterile dressing was applied to the catheter. The patient tolerated the procedure well. Upon transferring the patient to his hospital bed to leave the angio suite, he was noted to have oozing around the skin entry site. Pressure was held. The superior skin puncture site also started oozing and the Dermabond came off. A 4- 0 Nylon stitch was placed on the superior puncture site on the neck. Multiple 4- 0 Nylon stitches were placed around the chest wall entry site of the catheter. A combination of hemostatic agents and manual pressure were also used but patient continued to bleed around the catheter. A #11 blade was used to extend the incision longitudinally above the catheter to identify any areas of bleeding. There was oozing from the soft tissue around the tunnel and at the entry site but no yaya areas of active bleeding. The tunnel was packed with Surgicel. The skin was re-approximated over the catheter at the entry site with two 4-0 Nylon interrupted stitches. The catheter was re-secured to the chest wall with Nylon stitches. Dry 4x4 gauze and sterile dressing was placed over the site. A pressure dressing was placed above it. There was no strikethrough on the dressing. Patient tolerated the procedure well and was taken to his room in stable condition. Dr. Kamara was present and scrubbed for the entire procedure. I attest to the content of the Intraoperative Record and any orders documented therein. Any exceptions are noted below.
[2023-08-16] MEDS ORDERED: ARISTA ABSORBABLE HEMOSTAT 3GM TOP ONE (13:48)
[2023-08-16] MEDS ORDERED: LIDOCAINE 1%/EPINEPHRINE 1:100,000 20 ML VIAL ONE (14:19)
[2023-08-16] MEDS ORDERED: OLANZapine 10 MG/2.1 ML SDV IM STA (15:36)
[2023-08-16] MEDS ORDERED: OLANZapine 10 MG/2.1 ML SDV IM ONE (15:38)
[2023-08-16] MEDS ORDERED: OLANZapine 10 MG/2.1 ML SDV IM PRN (17:41)
--- NOTE | 2023-08-16 17:44 | Hospitalist Progress Note ---
Date of Service August 16, 2023 Assessment & Plan (1) Acute kidney injury: Plan: First noted 07/25-maybe atn due to poor po intake, ain from meds not likely as no WBCs on UA, could be OSWALDO from CT scans and ATN from infection patient got volume overloaded with minimal response to several doses of IV diuretics Femoral vein temporary dialysis catheter placed. Patient got started on dialysis. Dialyzed on 08/12, 08/13 Entry Level Sales Associate on board Rapid rise of creatinine over the weekend. Determined that the patient will need further dialysis. -TIJ cath placed 08/16, had bleeding afterwards, no time for HD--> plan for tomorrow -follow BMP, appreciate Nephro consult (2) Acute hypoxic respiratory failure: Plan: resolved, was 2/2 volume overload from pleural effusions from EDRIK Recent echocardiogram on 06/21 showed normal EF TPN discontinued on 08/11 (3) Encephalopathy: Plan: Acute encephalopathy, probably metabolic.Was resolved and now worsened again with hyperactive delirium Likely from renal failure, possibly from previous Cefepime use Head CT scan negative. Not sleeping at all, hallucinating, delusional No signs of new infection Give IM Zyprexa prn, increase Remeron to 15mg hs for improved sleep and appetite HD ongoing, antibiotic therapy ongoing Supportive care (4) Perforated abdominal viscus: Plan: Patient with recent diagnosis of Ulcerative pancolitis, and had sessile polyp biopsied along with other biopsies on a colonoscopy during previous admission. Presented with free air, to OR 06/28/23 with subtotal colon resection with rectal stump remaining, and ileostomy. Three areas of perforation were identified, abscess and feculent material seen. Pseudomonas, Staphylococcus aureus, and Enterococcus faecium as well as Mariely albicans isolated. RUQ drain has been removed. IR drain remains and continues to drain in LUQ manipulated on 07/23/[address] scan 07/19 shows persistent fluid collections consistent with abscess 07/23/2023 shows a leukocytosis hence the drain manipulation Repeat abdominal CT on 08/02 with improving size and multiple abscesses but still one that is large 9 cm- discussed with IR not possible as drain additional larger pocket as loculated other pockets too small Wound vac remains in place over LLQ P.o. intake has improved Since 08/13. Patient is eating his meals. TPN discontinued. Poor p.o. intake likely had a lot to do with his renal failure and encephalopathy Appreciate infectious disease recommendations -continue daptomycin, Zosyn, and renally adjusted fluconazole through 08/30/23 w/ reevaluation for likely extension with CT abd/pel prior to that around 08/16- 08/23 to see if needs further IR drainage or drain manipulation Switched cefepime to IV Zosyn 08/10 due to concern for cefepime induced neurotoxicity. Patient was getting increasingly lethargic. spoke to infectious disease and nephrology who are both okay with the switch - Discontinued metronidazole after completing course on 08/10 - Patient was started on Remeron 7.5mg po hs for appetite stimulant and in case depression causing poor appetite -Check CK once weekly (Last done on 08/10) while on daptomycin, follow CBC, BMP -gave 6 doses of IV thiamine high-dose to prevent Wernicke encephalopathy in case of deficiency given severe malnutrition while on D5-now on thiamine 100mg daily -CT abdomen 08/09 unremarkable (5) Acute blood loss anemia: Plan: Postoperatively from initial surgery, now anemia from renal failure, chronic disease as well Now with active bleeding from TIJ site B12, folate, iron studies normal TSH mildly elevated and free T4 mildly low-follow follow CBC again this evening, if hgb drops, transfuse as is becoming tachycardic Received 1 unit of blood during dialysis initially (6) Acute diastolic congestive heart failure: Plan: ruled out (7) Hard of hearing: Plan: Supportive care, wears hearing device (8) Ulcerative colitis: Plan: Patient with ulcerative colitis diagnosed by colonoscopy in 06/2023 Now status post subtotal colectomy with only rectal stump remaining No treatment needed at this point but will need continued surveillance for colorectal CA of the rectal stump Will need follow-up with GI as an outpatient Plan Dispo-continued stay Extensive discussion with the nursing home system -current plan in place to be the patient returns to the nursing home when medically stable Patient will then have supplies to continue antibiotic care at [facility] but with eventual transition to [facility] nursing home system which is a more robust medical facility Admission and Anticipated Discharge Date Admission Date: June 28, 2023 Subjective Pt very agitated today and hyper, not sleeping at all as per guards and nursing. Confused, talking about feeding soup and cheese sticks to all his buddies. D enies pain, is eating abit more. Had TIJ cath placed and had some bleeding intermittently after wards, improved now with pressure dressing. Tele with ST in 100s Physical Exam Constitutional: + underweight Respiratory: normal respiratory effort, lungs clear to auscultation Cardiovascular: RRR, no murmur, no edema Chest (Breasts): Chest: + vascular access device or port (R TIJ cath with blood on dressing) Gastrointestinal (Abdomen): Inspection/Auscultation: normal bowel sounds and + abdominal surgical drain present; + abdomen abnormal to inspection (colostomy bag with stool in place, drain from Left abdomen) Percussion/Palpation: abdomen soft; abdomen nontender Psychiatric: Orientation: alert, oriented to person, oriented to place and cooperative Speech: + pressured speech Affect: + elated affect Thought Content: + cognitive distortions Results & Data Results & Data Vital Signs (Past 12 Hours) Vital Signs Temp Pulse Pulse Resp BP Pulse Ox O2 Del Method 08/16/23 16:17 36.4 C L 107 H 16 143/99 H 98 Room Air 08/16/23 14:51 100 H 18 133/98 96 Room Air 08/16/23 14:46 110 H 18 140/92 96 Room Air 08/16/23 14:41 113 H 18 153/100 H 96 Room Air 08/16/23 14:36 110 H 20 146/96 H 96 Room Air 08/16/23 14:31 105 H 16 143/95 H 96 Room Air 08/16/23 14:26 101 H 16 151/90 H 95 Room Air 08/16/23 14:21 95 H 16 140/75 95 Room Air 08/16/23 14:16 105 H 16 143/86 H 95 Room Air 08/16/23 14:11 100 H 16 150/87 H 95 Room Air 08/16/23 14:06 104 H 16 144/99 H 95 Room Air 08/16/23 14:01 98 H 16 148/92 H 95 Room Air 08/16/23 13:56 98 H 16 143/95 H 95 Room Air 08/16/23 13:51 98 H 16 159/90 H 95 Room Air 08/16/23 13:46 100 H 16 140/82 95 Room Air 08/16/23 13:41 100 H 16 137/98 95 Room Air 08/16/23 13:35 93 H 16 133/95 100 Oxymask 08/16/23 13:30 93 H 16 130/99 100 Oxymask 08/16/23 13:25 94 H 16 135/92 100 Oxymask 08/16/23 13:20 94 H 16 135/92 100 Oxymask 08/16/23 13:15 92 H 16 132/98 100 Oxymask 08/16/23 13:10 93 H 16 142/80 H 100 Oxymask 08/16/23 13:05 90 16 144/98 H 100 Oxymask 08/16/23 13:00 89 16 136/97 100 Oxymask 08/16/23 12:05 37.0 C 90 20 128/89 98 Room Air 08/16/23 11:40 103 H 08/16/23 11:24 Room Air 08/16/23 08:03 36.7 C 100 H 20 136/93 94 Room Air O2 Flow Rate 08/16/23 16:17 08/16/23 14:51 08/16/23 14:46 08/16/23 14:41 08/16/23 14:36 08/16/23 14:31 08/16/23 14:26 08/16/23 14:21 08/16/23 14:16 08/16/23 14:11 08/16/23 14:06 08/16/23 14:01 08/16/23 13:56 08/16/23 13:51 08/16/23 13:46 08/16/23 13:41 08/16/23 13:35 4 08/16/23 13:30 4 08/16/23 13:25 4 08/16/23 13:20 4 08/16/23 13:15 4 08/16/23 13:10 4 08/16/23 13:05 4 08/16/23 13:00 4 08/16/23 12:05 08/16/23 11:40 08/16/23 11:24 08/16/23 08:03 Laboratory Results CBC x 2 and BMP, phos reviewed PG Care Time/CCT Total # of Minutes Spent Total Time Spent with Patient: Total time spent is greater than 50% in coordination of care (as documented) at patient's floor/unit and/or counseling patient: Coding Level of Care Code 51126 SUB INP/OBS CARE 3/50MIN Diagnoses Acute kidney injury N17.9 Acute hypoxic respiratory failure J96.01 Encephalopathy G93.40 Perforated abdominal viscus R19.8 Acute blood loss anemia D62 Acute diastolic congestive heart failure I50.31 Bilateral hearing loss, unspecified hearing loss type H91.93 Hearing loss type: unspecified Laterality: bilateral Ulcerative pancolitis with abscess K51.014 Digestive disease complication type: with abscess Ulcerative colitis location: ulcerative pancolitis (7) Hard of hearing Hearing loss type: unspecified Laterality: bilateral Qualified Code(s): H91.93 - Unspecified hearing loss, bilateral (8) Ulcerative colitis Digestive disease complication type: with abscess Ulcerative colitis location: ulcerative pancolitis Qualified Code(s): K51.014 - Ulcerative (chronic) pancolitis with abscess
[2023-08-16 18:25] LABS: Hematocrit (blood only) 26.2 % (42.0-52.0); Hemoglobin 8.3 g/dl (14.0-18.0); Mean Corpuscular Hemoglobin 28.8 pg (25.0-34.0); Mean Corpuscular Hgb Conc 31.7 g/dL (32.0-36.0); Mean Platelet Volume 9.6 fL (9.4-12.4); Platelet Count 282 K/uL (130-400); RDW Coefficient of Variation 16.7 % (11.5-14.5); RDW Standard Deviation 55.1 fL (36.4-46.3); Red Blood Count 2.88 M/uL (4.70-6.10); White Blood Count 7.51 K/ul (4.8-10.8)
[2023-08-16] MEDS ORDERED: ALTEPLASE, RECOMBINANT 1 MG/ML 2ML VIAL INSTIL ONE (18:29)
[2023-08-16] MEDS: FLUCONAZOLE 200 MG/100 ML BAG IV SCH (19:34)
[2023-08-16] MEDS: MIRTAZAPINE TAB 15 MG TAB PO SCH (22:02)
[2023-08-17] MEDS: FAMOTIDINE 20 MG in SYRINGE 3 ML IV SCH ×2 (03:46→15:28)
[2023-08-17] MEDS: PIPERACILLIN/TAZOBACTAM 4.5 GM in DEXTROSE 5% MINI-B 100 ML IV SCH ×2 (04:32→15:28)
[2023-08-17 07:01] LABS: Hematocrit (blood only) 22.1 % (42.0-52.0); Hemoglobin 7.3 g/dl (14.0-18.0); Mean Corpuscular Hemoglobin 29.2 pg (25.0-34.0); Mean Corpuscular Volume 88.4 fL (80.0-100.0); Mean Platelet Volume 9.9 fL (9.4-12.4); Platelet Count 252 K/uL (130-400); RDW Coefficient of Variation 16.7 % (11.5-14.5); RDW Standard Deviation 53.6 fL (36.4-46.3); White Blood Count 6.67 K/ul (4.8-10.8)
[2023-08-17 07:26] LABS: Albumin Globulin Ratio 0.7 (0.9-2); Albumin Level 2.2 gm/dl (3.4-5.0); BUN Creatinine Ratio 8.1 (10-20); Bilirubin,Total 0.4 mg/dl (0.2-1.0); Creatinine Clr Calc Pharmacy 9.3 ml/min; Est GFR (Non-African American) 8.6 ml/min; Globulin 3.2 gm/dl (2.5-4.0); Magnesium 1.9 mg/dl (1.7-2.4); Potassium 4.1 mmol/L (3.5-5.1); Total Protein 5.4 gm/dl (6.0-8.3)
[2023-08-17 07:28] LABS: Basophils # (auto) 0.03 K/uL (0.00-0.20); Basophils % (auto) 0.4 %; Eosinophils # (auto) 0.11 K/uL (0.00-0.50); Eosinophils % (auto) 1.6 %; Immature Granulocytes # (auto) 0.02 K/uL (0.01-0.20); Immature Granulocytes % (auto) 0.3 %; Lymphocytes # (auto) 0.86 K/uL (1.20-3.40); Lymphocytes % (auto) 12.9 %; Monocytes # (auto) 0.47 K/uL (0.11-0.59); Neutrophils # (auto) 5.18 K/uL (1.40-6.50); Neutrophils % (auto) 77.8 %; RBC Morphology Unremarkable
[2023-08-17] MEDS ORDERED: SODIUM CHLORIDE 0.9% 250 ML IV PRN ×2 (08:03→08:11)
[2023-08-17] MEDS ORDERED: OLANZapine 10 MG/2.1 ML SDV IM PRN (08:10)
[2023-08-17] MEDS: THIAMINE HCL 100 MG in SYRINGE 9 ML IV SCH (08:20)
[2023-08-17] MEDS: PANTOprazole 40 MG in SYRINGE 0 ML IV SCH ×2 (08:20→20:39)
[2023-08-17] MEDS: HEPARIN SOD 5,000 UNIT/0.5 ML VIAL SQ SCH ×2 (08:25→20:04)
[2023-08-17] MEDS: amLODIPine BESYLATE 5 MG TAB PO SCH (08:37)
[2023-08-17] MEDS: QUEtiapine FUMARATE 25 MG TABLET PO PRN ×2 (08:49→20:39)
[2023-08-17] MEDS ORDERED: LORazepam 1 MG in SYRINGE 0.5 ML IV STA (11:01)
--- NOTE | 2023-08-17 12:18 | Nephrology Progress Note ---
Date of Service August 17, 2023 Assessment & Plan (1) Acute kidney injury: (2) Acute hypoxic respiratory failure: (3) Intra-abdominal abscess: (4) Acute blood loss anemia: (5) Megacolon, toxic: (6) Ileostomy in place: (7) Ulcerative colitis: Plan 53 y o m admitted with Toxic megacolon with new diagnosis of ulcerative colitis, s/p exploratory laparotomy on 06/28/23. Found to have multiple intra-abdominal abscesses and had multiple CT with IV contrast over last 1 month. Also has been multiple courses of antibiotic including cefepime, caspofungin, currently on Zosyn, daptomycin and fluconazole for MRSA and Pseudomonas intra-abdominal infection and abscess. Developed DERIK over last few days with otherwise normal kidney function over last few weeks, creatinine was 0.9 until 07/21/2023. Creatinine was noted to be 2.3 on 07/25/2023 and has been progressively worsen ing and up to 2.9 this morning. Urinalysis with proteinuria but no hematuria or pyuria. Renal ultrasound was otherwise unremarkable. Renal function progressively worsen and became volume overloaded and started on dialysis on 08/12/2023 mainly for volume overload. Has femoral dialysis catheter which has not been functioning well. Had 6 L UF. Rapid rise in creatinine off of dialysis over the weekend and remained oliguric although electrolyte and volume status reasonable. Had tunneled dialysis catheter 08/16/2023 --Tolerating dialysis today however he remains somewhat confused, agitated and has been having hallucination --Appreciate intensive care help with removing femoral temporary dialysis catheter --avoid all NSAIDs --Dose medications for eGFR less than 10 Will follow. Admission and Anticipated Discharge Date Admission Date: June 28, 2023 Sean Galan was seen during dialysis this morning. He was pretty confused, somewhat agitated and was hallucinating. Had tunneled dialysis catheter yesterday, no active bleeding catheter at the catheter site after pressure dressing yesterday. Blood pressure fair. Review of Systems Review of Systems: Unobtainable due to mental health condition Physical Exam Constitutional: WD/WN, vitals as above + ill appearing and + cachectic Eyes: + anicteric sclerae Neck: normal visual inspection Respiratory: no respiratory distress Auscultation: lungs clear to auscultation bilaterally Cardiovascular: RRR, no murmur, no edema Extremities: + vascular access device (left femoral catheter) IJ tunneled dialysis catheter, no active bleeding Gastrointestinal (Abdomen): Percussion/Palpation: abdomen soft Musculoskeletal: Extremities: extremities normal to inspection and + muscle atrophy Skin: no rashes, warm and dry Neurologic: no focal motor deficits Psychiatric: Confusion, agitation and hallucination Results & Data Vital Signs (Past 12 Hours) Vital Signs Temp Pulse Pulse Resp BP BP Pulse Ox 08/17/23 11:09 08/17/23 10:21 36.2 C L 78 22 125/74 98 08/17/23 10:06 36.2 C L 88 20 124/88 98 08/17/23 09:48 36.5 C 99 H 20 128/78 99 08/17/23 07:44 119 H 08/17/23 07:33 36.3 C L 125 H 17 145/96 H 95 08/17/23 03:15 36.3 C L 108 H 29 H 147/98 H 97 O2 Del Method 08/17/23 11:09 Room Air 08/17/23 10:21 08/17/23 10:06 08/17/23 09:48 08/17/23 07:44 08/17/23 07:33 Room Air 08/17/23 03:15 Room Air PG Care Time/CCT Total # of Minutes Spent Total Time Spent with Patient: Total time spent is greater than 50% in coordination of care (as documented) at patient's floor/unit and/or counseling patient: Coding Level of Care Code 30992 SUB INP/OBS CARE 2/35MIN Diagnoses Acute kidney injury N17.9 Acute hypoxic respiratory failure J96.01 Intra-abdominal abscess K65.1 Acute blood loss anemia D62 Megacolon, toxic K59.[address] Z93.2 Ulcerative pancolitis with abscess K51.014 Ulcerative colitis location: ulcerative pancolitis Digestive disease complication type: with abscess (7) Ulcerative colitis Ulcerative colitis location: ulcerative pancolitis Digestive disease complication type: with abscess Qualified Code(s): K51.014 - Ulcerative (chronic) pancolitis with abscess
--- NOTE | 2023-08-17 15:36 | CT Scan Report ---
CT SCAN OF THE ABDOMEN AND PELVIS WITHOUT IV CONTRAST CLINICAL HISTORY: Follow-up abscesses. COMPARISON STUDY: Prior abdominal CT scans, most recently dated 08/09/2023. TECHNIQUE: Unenhanced CT scan of the abdomen and pelvis is performed from the lung bases to the proxi mal femora. Images are reviewed in the axial, sagittal, and coronal planes. IV contrast was not admin istered. Note that the examination was performed in significantly suboptimal fashion without oral and IV contrast. A dose lowering technique was utilized adhering to the principles of ALARA. CT DOSE: 580.18 mGy.cm FINDINGS: Lung bases: The heart is normal in size noting trace pericardial effusion. There is diminished attenu ation of the cardiac blood pool as compared to the myocardium suggesting anemia. Emphysematous change is noted. There are moderate pleural effusions with dependent consolidation. Liver: The unenhanced liver is normal in size, contour, and attenuation. There is no intrahepatic michael iary ductal dilatation. Gallbladder: Mildly distended but otherwise normal in appearance. Spleen: Normal in size and attenuation. An 11 mm hypodensity in the anterior spleen is unchanged. Pancreas: The unenhanced pancreas is normal in size. Scattered parenchymal calcifications suggest chr onic pancreatitis. Adrenal glands: Unremarkable. Kidneys: The unenhanced kidneys are normal in size and without hydronephrosis. No renal calculi are i dentified. There is no evidence of contour deforming mass lesion. Abdominal vasculature: The abdominal aorta is normal in course and caliber noting moderate to advance d atherosclerotic calcification. A left femoral approach central venous catheter is new from previous . Bowel: There is postoperative change from subtotal colectomy with right lower quadrant ileostomy. A H artmann pouch is noted in the pelvis. The rectosigmoid colon appears thick walled. No bowel obstructi on is seen. Peritoneum: There is a wound/scar in the infraumbilical abdominal wall. Again seen are numerous intra peritoneal fluid collections. A thick-walled gas and fluid containing crescentic collection in the le ft upper quadrant extending from the left hemidiaphragm to below the spleen history for previous. Thi s measures approximately 10 x 6.5 cm as seen on image #73. A percutaneous drainage catheter is seen a long the inferior aspect of this collection. The small fluid collection along the gastric fundus has almost completely resolved. A tiny residual fluid collection along the inferior aspect of the gallbla dder on image #141 likely measures 2.4 cm. This is not well assessed without IV contrast. A pocket of fluid in the right lower quadrant on image #209 measures 2.2 cm. A thick-walled gas and fluid contai iesha collection in the pelvis above the sigmoid has modestly decreased in size from previous. This me asures approximately 3.7 x 1.3 cm chest seen on image #256. Lymphadenopathy: None. Pelvic viscera: The bladder wall is circumferentially thickened with surrounding inflammation. The pr ostate and seminal vesicles are normal as imaged. Skeletal structures: No lytic or blastic lesions are seen. Soft tissues: There is body wall edema. IMPRESSION: 1. Significantly suboptimal examination without oral and IV contrast. 2. Again seen are numerous residual intra-abdominal fluid collections as detailed above which are typ ical for abscesses. These are overall similar in appearance to the 08/09/2023 examination. 3. A surgical drain is present within the largest collection in the left upper quadrant around the sp christian. 4. Moderate pleural effusions with dependent consolidation. These are similar to previous. 5. The bladder wall appears circumferentially thickened with surrounding inflammation. Correlate with urinalysis. 6. Ventral abdominal wound/scar with postsurgical change from subtotal colectomy and right lower quad rant ileostomy. 7. Question wall thickening of the rectosigmoid stump. Correlate clinically. 8. Anasarca of the body wall. 9. Additional findings as above. ACT 112: Negative or not required by law. Electronically signed by: Hu Suarez M.D. 08/17/2023 3:35 PM
--- NOTE | 2023-08-17 17:13 | Hospitalist Progress Note ---
Date of Service August 17, 2023 Assessment & Plan (1) Acute kidney injury: Plan: First noted 07/25-maybe ATN due to poor po intake, AIN from meds not likely as no WBCs on UA, could be OSWALDO from CT scans and ATN from infection patient got volume overloaded with minimal response to several doses of IV diuretics Femoral vein temporary dialysis catheter placed. Patient got started on dialysis. Dialyzed on 08/12, 08/13 and again 08/17 Regular [facility] Provider consult appreciated -TIJ cath placed 08/16, had bleeding afterwards which is now stopped -follow BMP -continue HD (2) Acute hypoxic respiratory failure: Plan: resolved, was 2/2 volume overload from pleural effusions from DERIK Recent echocardiogram on 06/21 showed normal EF TPN discontinued on 08/11 (3) Encephalopathy: Plan: Acute encephalopathy, probably metabolic.Was resolved and now worsened again with hyperactive delirium and is ongoing Likely from renal failure, possibly from previous Cefepime use, lack of sleep Head CT scan negative. Not sleeping at all, hallucinating, delusional No signs of new infection but repeat UA still pending CT abd/pel repeated 08/17 with improving abscesses except LUQ one same. Also with inflammation of bladder c/w cystitis Continue IM Zyprexa and increase to bid prn, start Seroquel 25mg po bid prn, and increased Remeron to 15mg hs for improved sleep and appetite Gave IV ativan x 1 for hemodialysis but would try to avoid further benzos if possible HD ongoing, antibiotic therapy ongoing Supportive care (4) Perforated abdominal viscus: Plan: Patient with recent diagnosis of Ulcerative pancolitis, and had sessile polyp biopsied along with other biopsies on a colonoscopy during previous admission. Presented with free air, to OR 06/28/23 with subtotal colon resection with rectal stump remaining, and ileostomy. Three areas of perforation were identified, abscess and feculent material seen. Pseudomonas, Staphylococcus aureus, and Enterococcus faecium as well as Mariely albicans isolated. RUQ drain has been removed. IR drain remains and continues to drain in LUQ manipulated on 07/23/[address] scan 07/19 shows persistent fluid collections consistent with abscess 07/23/2023 shows a leukocytosis hence the drain manipulation Repeat abdominal CT on 08/02 with improving size and multiple abscesses but still one that is large 9 cm- discussed with IR not possible as drain additional larger pocket as loculated other pockets too small Wound vac remains in place over LLQ Pt pulled out his LUQ drain on 08/17 due to encephalopathy. Repeat CT abd/pel 08/17 shows improving sizes in all abscesses except LUQ one still same size P.o. intake has improved Since 08/13. Patient is eating his meals. TPN discontinued. Poor p.o. intake likely had a lot to do with his renal failure and encephalopathy Appreciate infectious disease recommendations -continue daptomycin, Zosyn, and renally adjusted fluconazole through at least 08/30/23 w/ reevaluation for likely extension with CT abd/pel prior to that around to see if needs further IR drainage or drain manipulation -NPO after midnight for repeat IR drain placement 08/18 as pt pulled out drain from LUQ Switched cefepime to IV Zosyn 08/10 due to concern for cefepime induced neur otoxicity. Patient was getting increasingly lethargic. spoke to infectious disease and nephrology who are both okay with the switch - Discontinued metronidazole after completing course on 08/10 - Patient was started on Remeron for appetite stimulant and in case depression causing poor appetite -Check CK once weekly (Last done on 08/10) while on daptomycin, follow CBC, BMP -gave 6 doses of IV thiamine high-dose to prevent Wernicke encephalopathy in case of deficiency given severe malnutrition while on D5-now on thiamine 100mg daily (5) Acute blood loss anemia: Plan: Postoperatively from initial surgery, now anemia from renal failure, chronic disease as well Then with active bleeding from TIJ site and hgb now down to 7.3, sinus tachycardia, worsening encephalopathy--> transfuse 1 unit PRBCs with HD on 08/17 B12, folate, iron studies normal TSH mildly elevated and free T4 mildly low-follow follow CBC Received 3 units of blood this admission (6) Hard of hearing: Plan: Supportive care, wears hearing device (7) Ulcerative colitis: Plan: Patient with ulcerative colitis diagnosed by colonoscopy in 06/2023 Now status post subtotal colectomy with only rectal stump remaining No treatment needed at this point but will need continued surveillance for colorectal CA of the rectal stump Will need follow-up with GI as an outpatient Plan Dispo-continued stay Extensive discussion with the [facility] system -current plan in place to be the patient returns to the [facility] when medically stable Patient will then have supplies to continue antibiotic care at [facility] but with eventual transition to [facility] system which is a more robust medical facility Admission and Anticipated Discharge Date Admission Date: June 28, 2023 Subjective Pt very agitated and restless all morning, could not lie still for HD. ALso pulled his drain out of his abdomen and pulled off his colostomy bag. Was given IM Zyprexa overnight and still did not sleep all night. Was given IM Zyprexa, po Seroquel and finally 1 mg IV ativan to calm him down for HD today and he finally fell asleep around 1600 I did not wake him up when I saw him at [address] 110-120s overnight and down to 70s after PRBC transfusion I discussed his care with IR LUIS Waller Physical Exam Constitutional: + underweight sleeping, did not wake him up Respiratory: normal respiratory effort, lungs clear to auscultation Cardiovascular: RRR, no murmur, no edema Chest (Breasts): Chest: + vascular access device or port (R TIJ cath) Gastrointestinal (Abdomen): Inspection/Auscultation: normal bowel sounds; + abdomen abnormal to inspection (colostomy bag with stool in place, wound vac LLQ) Percussion/Palpation: abdomen soft; abdomen nontender Results & Data Results & Data Vital Signs (Past 12 Hours) Vital Signs Temp Pulse Pulse Pulse Resp BP BP 08/17/23 16:18 94 H 08/17/23 16:15 143/99 H 08/17/23 16:15 08/17/23 16:01 137/88 08/17/23 16:01 95 H 19 08/17/23 16:00 110 H 26 H 08/17/23 15:50 117 H 25 H 08/17/23 15:45 109 H 28 H 08/17/23 15:40 114 H 26 H 08/17/23 15:40 101 H 16 121/91 08/17/23 13:15 36.2 C L 85 118/78 08/17/23 12:30 91 H 95/79 L 08/17/23 12:00 70 128/88 08/17/23 11:30 74 153/88 H 08/17/23 11:09 08/17/23 11:00 102 H 142/80 H 08/17/23 10:30 89 124/77 08/17/23 10:21 36.2 C L 78 22 125/74 08/17/23 10:06 36.2 C L 88 20 124/88 08/17/23 10:00 78 124/90 08/17/23 09:48 36.5 C 99 H 20 128/78 08/17/23 09:30 104 H 133/89 08/17/23 09:00 36.2 C L 85 08/17/23 07:44 119 H 08/17/23 07:33 36.3 C L 125 H 17 145/96 H Pulse Ox O2 Del Method 08/17/23 16:18 08/17/23 16:15 08/17/23 16:15 94 08/17/23 16:01 08/17/23 16:01 94 08/17/23 16:00 94 08/17/23 15:50 96 08/17/23 15:45 97 08/17/23 15:40 96 08/17/23 15:40 97 Room Air 08/17/23 13:15 08/17/23 12:30 08/17/23 12:00 08/17/23 11:30 08/17/23 11:09 Room Air 08/17/23 11:00 08/17/23 10:30 08/17/23 10:21 98 08/17/23 10:06 98 08/17/23 10:00 08/17/23 09:48 99 08/17/23 09:30 08/17/23 09:00 08/17/23 07:44 08/17/23 07:33 95 Room Air Laboratory Results CBC, BMP, magnesium reviewed PG Care Time/CCT Total # of Minutes Spent Total Time Spent with Patient: Total time spent is greater than 50% in coordination of care (as documented) at patient's floor/unit and/or counseling patient: Coding Level of Care Code 51194 SUB INP/OBS CARE 3/50MIN Diagnoses Acute kidney injury N17.9 Acute hypoxic respiratory failure J96.01 Encephalopathy G93.40 Perforated abdominal viscus R19.8 Acute blood loss anemia D62 Bilateral hearing loss, unspecified hearing loss type H91.93 Hearing loss type: unspecified Laterality: bilateral Ulcerative pancolitis with abscess K51.014 Ulcerative colitis location: ulcerative pancolitis Digestive disease complication type: with abscess (6) Hard of hearing Hearing loss type: unspecified Laterality: bilateral Qualified Code(s): H91.93 - Unspecified hearing loss, bilateral (7) Ulcerative colitis Ulcerative colitis location: ulcerative pancolitis Digestive disease complication type: with abscess Qualified Code(s): K51.014 - Ulcerative (chronic) pancolitis with abscess
[2023-08-17] MEDS: FLUCONAZOLE 200 MG/100 ML BAG IV SCH (19:39)
[2023-08-17] MEDS: MIRTAZAPINE TAB 15 MG TAB PO SCH (20:39)
[2023-08-17] MEDS: DAPTOmycin 600 MG in SYRINGE 0 ML IV SCH (20:39)
[2023-08-17] MEDS: OLANZapine 10 MG/2.1 ML SDV IM PRN (21:39)
[2023-08-18] MEDS: FAMOTIDINE 20 MG in SYRINGE 3 ML IV SCH ×5 (03:18→10:57)
[2023-08-18] MEDS: PIPERACILLIN/TAZOBACTAM 4.5 GM in DEXTROSE 5% MINI-B 100 ML IV SCH ×2 (03:19→18:21)
[2023-08-18] MEDS: HEPARIN SOD 5,000 UNIT/0.5 ML VIAL SQ SCH ×2 (07:42→21:15)
[2023-08-18] MEDS: amLODIPine BESYLATE 5 MG TAB PO SCH (08:00)
[2023-08-18] MEDS: PANTOprazole 40 MG in SYRINGE 0 ML IV SCH (08:00)
[2023-08-18] MEDS: THIAMINE HCL 100 MG in SYRINGE 9 ML IV SCH (08:00)
[2023-08-18 09:11] LABS: Basophils # (auto) 0.05 K/uL (0.00-0.20); Basophils % (auto) 0.8 %; Eosinophils # (auto) 0.12 K/uL (0.00-0.50); Hematocrit (blood only) 28.9 % (42.0-52.0); Hemoglobin 9.5 g/dl (14.0-18.0); Immature Granulocytes # (auto) 0.02 K/uL (0.01-0.20); Immature Granulocytes % (auto) 0.3 %; Lymphocytes # (auto) 0.77 K/uL (1.20-3.40); Lymphocytes % (auto) 12.8 %; Mean Corpuscular Hemoglobin 28.7 pg (25.0-34.0); Mean Corpuscular Hgb Conc 32.9 g/dL (32.0-36.0); Mean Corpuscular Volume 87.3 fL (80.0-100.0); Mean Platelet Volume 10.7 fL (9.4-12.4); Monocytes # (auto) 0.42 K/uL (0.11-0.59); Neutrophils # (auto) 4.64 K/uL (1.40-6.50); Neutrophils % (auto) 77.1 %; Platelet Count 179 K/uL (130-400); RDW Coefficient of Variation 16.4 % (11.5-14.5); RDW Standard Deviation 52.8 fL (36.4-46.3); Red Blood Count 3.31 M/uL (4.70-6.10); White Blood Count 6.02 K/ul (4.8-10.8)
[2023-08-18 09:40] LABS: BUN Creatinine Ratio 5.7 (10-20); Calcium 8.1 mg/dl (8.6-10.3); Creatinine Clr Calc Pharmacy 15.3 ml/min; Est GFR (African American) 19.3 ml/min; Est GFR (Non-African American) 16.6 ml/min; Potassium 3.6 mmol/L (3.5-5.1)
--- NOTE | 2023-08-18 10:38 | Nephrology Progress Note ---
Date of Service August 18, 2023 Assessment & Plan (1) Acute kidney injury: (2) Acute hypoxic respiratory failure: (3) Intra-abdominal abscess: (4) Acute blood loss anemia: (5) Megacolon, toxic: (6) Ileostomy in place: (7) Ulcerative colitis: Plan 53 y o m admitted with Toxic megacolon with new diagnosis of ulcerative colitis, s/p exploratory laparotomy on 06/28/23. Found to have multiple intra-abdominal abscesses and had multiple CT with IV contrast over last 1 month. Also has been multiple courses of antibiotic including cefepime, caspofungin, currently on Zosyn, daptomycin and fluconazole for MRSA and Pseudomonas intra-abdominal infection and abscess. Developed DERIK over last few days with otherwise normal kidney function over last few weeks, creatinine was 0.9 until 07/21/2023. Creatinine was noted to be 2.3 on 07/25/2023 and has been progressively worsen ing and up to 2.9 this morning. Urinalysis with proteinuria but no hematuria or pyuria. Renal ultrasound was otherwise unremarkable. Renal function progressively worsen and became volume overloaded and started on dialysis on 08/12/2023 mainly for volume overload. Has femoral dialysis catheter which has not been functioning well. Had 6 L UF. Rapid rise in creatinine off of dialysis over the weekend and remained oliguric although electrolyte and volume status reasonable. Had tunneled dialysis catheter 08/16/2023 Blood pressure, volume status acceptable. --Next dialysis tomorrow --avoid all NSAIDs --Dose medications for eGFR less than 10 Will follow. Admission and Anticipated Discharge Date Admission Date: June 28, 2023 Sean Galan was seen this morning. Unfortunately he has been delirious, agitated and has been hallucinating. Had dialysis yesterday, tolerated UF. Blood pressure stable. Afebrile. No respiratory distress. Review of Systems Review of Systems: Detailed review of system was not possible Physical Exam Constitutional: WD/WN, vitals as above + ill appearing and + cachectic Eyes: + anicteric sclerae Neck: normal visual inspection Respiratory: no respiratory distress Auscultation: lungs clear to auscultation bilaterally Cardiovascular: RRR, no murmur, no edema Extremities: + vascular access device (left femoral catheter) IJ tunneled dialysis catheter, no active bleeding Skin: no rashes, warm and dry Neurologic: no focal motor deficits Psychiatric: Confusion, agitation and hallucination Results & Data Vital Signs (Past 12 Hours) Vital Signs Temp Pulse Pulse Pulse Resp BP Pulse Ox 08/18/23 07:43 36.4 C L 95 H 18 131/97 96 08/18/23 03:57 102 H 52 L 24 129/88 94 08/17/23 23:36 139 H 22 150/98 H 97 08/17/23 23:00 122 H O2 Del Method 08/18/23 07:43 Room Air 08/18/23 03:57 Room Air 08/17/23 23:36 Room Air 08/17/23 23:00 PG Care Time/CCT Total # of Minutes Spent Total Time Spent with Patient: Total time spent is greater than 50% in coordination of care (as documented) at patient's floor/unit and/or counseling patient: Coding Level of Care Code 90229 SUB INP/OBS CARE 2/35MIN Diagnoses Acute kidney injury N17.9 Acute hypoxic respiratory failure J96.01 Intra-abdominal abscess K65.1 Acute blood loss anemia D62 Megacolon, toxic K59.[address] Z93.2 Ulcerative pancolitis with abscess K51.014 Ulcerative colitis location: ulcerative pancolitis Digestive disease complication type: with abscess (7) Ulcerative colitis Ulcerative colitis location: ulcerative pancolitis Digestive disease complication type: with abscess Qualified Code(s): K51.014 - Ulcerative (chronic) pancolitis with abscess
--- NOTE | 2023-08-18 13:08 | CT Scan Report ---
CT limited or localized study CT DOSE: 252.53 mGy.cm CLINICAL HISTORY: intra-abdominal abscess drainage . Percutaneous drain removed. TECHNIQUE: Multiaxial CT images of the abdomen were performed without contrast. A dose lowering tech nique was utilized adhering to the principles of ALARA. COMPARISON STUDY: CT guided drainage 07/23/2023. Abdomen and pelvis CT 08/17/2023. FINDINGS: Moderate bilateral pleural effusions with posterior consolidation at the bilateral lower lo bes. This favors compressive atelectasis. This remains unchanged. A catheter tip is seen within the d istal SVC. The heart is normal in size. No acute fractures identified. Moderate body wall edema again noted. The unenhanced liver, gallbladder, pancreas, and adrenal glands unremarkable. No renal stones or hydronephrosis. Partially visualized right lower quadrant ostomy again noted. No dilated loops of bowel to suggest an obstruction. No retroperitoneal lymphadenopathy or hematoma. Mild calcified plaq ue within the normal caliber abdominal aorta. There is again noted a loculated left upper quadrant fl uid collection adjacent to the spleen which contains a few punctate foci of fat or gas. The percutane ous drainage catheter has been removed in the interval. The collection is similar in size and current ly measures 8.2 x 2.4 cm. This study was performed for reevaluation of the collection to assess for p ossible repeat drain/catheter placement. However, the access window was considered too small to safel y drain. Therefore, the procedure was not performed. IMPRESSION: The left upper quadrant collection is similar in size and currently measures 8.2 x 2.4 c m. This study was performed for reevaluation of the collection to assess for possible repeat drain/ca theter placement. However, the access window was considered too small to safely drain. Therefore, the procedure was not performed. ACT 112: Negative or not required by law. Electronically signed by: Lior Richardson M.D. 08/18/2023 1:06 PM
--- NOTE | 2023-08-18 16:29 | Communication Note ---
Date of Service: August 18, 2023 I discussed the case with Dr. Reyes and reviewed the record. In brief, the fluid collections within his abdomen continue to decrease in size. The 1 fluid collection on the left side is still present however the drain fell out this morning. In discussion with Interventional Radiology, it was not felt that he would be able to replace the drain due to small window. The patient is afebrile and has a normal white count. He is not showing any signs of intra-abdominal infection/sepsis. He continues on IV antibiotics. I would not recommend any surgery at this time given his clinical situation. Any surgery would be fraught with the risk of serious complications due to the multiple fluid collections and scar tissue from his original surgery. If he began to show any signs of intra- abdominal infection / sepsis, I would recommend possible transfer to a tertiary care center where they may be more aggressive with placing a drain. For now, I would recommend continuing the IV antibiotics and monitoring him clinically. We will continue to follow along peripherally.
--- NOTE | 2023-08-18 19:45 | Hospitalist Progress Note ---
Date of Service August 18, 2023 Assessment & Plan (1) Acute kidney injury: Plan: First noted 07/25-maybe ATN due to poor po intake, AIN from meds not likely as no WBCs on UA, could be OSAWLDO from CT scans and ATN from infection patient got volume overloaded with minimal response to several doses of IV diuretics Femoral vein temporary dialysis catheter placed. Patient got started on dialysis. 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 Femoral line has been removed -follow BMP -continue HD as per Nephro and will need HD set up at skilled nursing (2) Acute hypoxic respiratory failure: Plan: resolved, was 2/2 volume overload from pleural effusions from DERIK Recent echocardiogram on 06/21 showed normal EF TPN discontinued on 08/11 -still w/ pleural effusions (3) Encephalopathy: Plan: Acute encephalopathy, probably metabolic.Was resolved and now worsened again with hyperactive delirium and is ongoing but now improved on 08/18 after multiple doses of Seroquel and IM Zyprexa Likely from renal failure, possibly from previous Cefepime use, lack of sleep Head CT scan negative. Not sleeping well, hallucinating, delusional No signs of new infection but repeat UA still pending CT abd/pel repeated 08/17 with improving abscesses except LUQ one same. Also with inflammation of bladder c/w cystitis Continue IM Zyprexa bid prn, and make Seroquel 25mg po bid scheduled Increased Remeron to 15mg hs for improved sleep and appetite Gave IV ativan x 1 for hemodialysis on 08/17 but would try to avoid further benzos if possible HD ongoing, antibiotic therapy ongoing Supportive care (4) Perforated abdominal viscus: Plan: Patient with recent diagnosis of Ulcerative pancolitis, and had sessile polyp biopsied along with other biopsies on a colonoscopy during previous admission. Presented with free air, to OR 06/28/23 with subtotal colon resection with rectal stump remaining, and ileostomy. Three areas of perforation were identified, abscess and feculent material seen. Pseudomonas, Staphylococcus aureus, and Enterococcus faecium as well as Mariely albicans isolated. RUQ drain has been removed. IR drain in LUQ was in place x 1 month but self-di scontinued on 08/[address] scan 07/19 shows persistent fluid collections consistent with abscess 07/23/2023 shows a leukocytosis hence the drain manipulation Repeat abdominal CT on 08/02 with improving size and multiple abscesses but still one that is large 9 cm- discussed with IR not possible as drain additional larger pocket as loculated other pockets too small Wound vac remains in place over midline incision and this wound is healing nicely Pt pulled out his LUQ drain on 08/17 due to encephalopathy. Repeat CT abd/pel 08/17 shows improving sizes in all abscesses except LUQ one still same size IR attempted to place new drain on 08/18 without success Reconsulted Surgery--> given clinically stable i.e. no fevers, leukocytosis, etc., no need for surgical washout at this time as would be quite risky P.o. intake has improved Since 08/13. Patient is eating his meals. TPN discontinued. Poor p.o. intake likely had a lot to do with his renal failure and encephalopathy Appreciate infectious disease recommendations -continue daptomycin, Zosyn, and renally adjusted fluconazole w/ reevaluation for likely extension with CT abd/pel q2-3 weeks-next CT should be around 09/01-09/08 Switched cefepime to IV Zosyn 08/10 due to concern for cefepime induced neurotoxicity. Patient was getting increasingly lethargic. spoke to infectious disease and nephrology who are both okay with the switch - Discontinued metronidazole after completing course on 08/10 - Patient was started on Remeron for appetite stimulant and in case depression causing poor appetite -Check CK once weekly (Last done on 08/18) while on daptomycin, follow CBC, BMP -gave 6 doses of IV thiamine high-dose to prevent Wernicke encephalopathy in case of deficiency given severe malnutrition while on D5-now on thiamine 100mg daily-change to po (5) Acute blood loss anemia: Plan: Postoperatively from initial surgery, now anemia from renal failure, chronic disease as well Then with active bleeding from TIJ site and hgb now down to 7.3, sinus tachycardia, worsening encephalopathy--> transfused 1 unit PRBCs with HD on 08/17 and now hgb up to 9.5 B12, folate, iron studies normal TSH mildly elevated and free T4 mildly low-follow follow CBC Received 3 units of blood this admission (6) Hard of hearing: Plan: Supportive care, wears hearing device (7) Ulcerative colitis: Plan: Patient with ulcerative colitis diagnosed by colonoscopy in 06/2023 Now status post subtotal colectomy with only rectal stump remaining No treatment needed at this point but will need continued surveillance for colorectal CA of the rectal stump Will need follow-up with GI as an outpatient Plan Dispo-continued stay Extensive discussion with the skilled nursing system -current plan in place to be the patient returns to the skilled nursing when medically stable-possibly later this week if encephalopathy continues to improve and if dialysis can be arranged at skilled nursing system--> likely transition to [facility] system which is a more robust medical facility Admission and Anticipated Discharge Date Admission Date: June 28, 2023 Subjective Pt more calm today, less agitated and restless. Still a little confused at times but may be due to being very hard of hearing. Discussed his care with Surgery and IR today. Drain not able to be placed and Surgery does not think open wash out is indicated and would be quite risky Tele with NSR< ST rates 100-120s Physical Exam Constitutional: + underweight Respiratory: normal respiratory effort, lungs clear to auscultation Cardiovascular: RRR, no murmur, no edema Chest (Breasts): Chest: + vascular access device or port (R TIJ cath) Gastrointestinal (Abdomen): Inspection/Auscultation: normal bowel sounds; + abdomen abnormal to inspection (colostomy bag off and stool everywhere,wound vac LLQ) and no abdominal surgical drain present (removed) Percussion/Palpation: abdomen soft; abdomen nontender Psychiatric: Orientation: alert and cooperative Results & Data Results & Data Vital Signs (Past 12 Hours) Vital Signs Temp Pulse Pulse Pulse Resp BP Pulse Ox 08/18/23 19:00 36.4 C L 97 H 21 134/99 95 08/18/23 16:00 103 H 08/18/23 15:35 35.7 C L 100 H 20 129/88 98 08/18/23 10:55 109 H 08/18/23 10:22 O2 Del Method 08/18/23 19:00 Room Air 08/18/23 16:00 08/18/23 15:35 Room Air 08/18/23 10:55 08/18/23 10:22 Room Air Laboratory Results CBC, BMP, CK reviewed PG Care Time/CCT Total # of Minutes Spent Total Time Spent with Patient: Total time spent is greater than 50% in coordination of care (as documented) at patient's floor/unit and/or counseling patient: Coding Level of Care Code 10533 SUB INP/OBS CARE 50MIN Diagnoses Acute kidney injury N17.9 Acute hypoxic respiratory failure J96.01 Encephalopathy G93.40 Perforated abdominal viscus R19.8 Acute blood loss anemia D62 Bilateral hearing loss, unspecified hearing loss type H91.93 Hearing loss type: unspecified Laterality: bilateral Ulcerative pancolitis with abscess K51.014 Digestive disease complication type: with abscess Ulcerative colitis location: ulcerative pancolitis (6) Hard of hearing Hearing loss type: unspecified Laterality: bilateral Qualified Code(s): H91.93 - Unspecified hearing loss, bilateral (7) Ulcerative colitis Digestive disease complication type: with abscess Ulcerative colitis location: ulcerative pancolitis Qualified Code(s): K51.014 - Ulcerative (chronic) pancolitis with abscess
[2023-08-18] MEDS: PANTOprazole 40 MG TAB PO SCH (21:15)
[2023-08-18] MEDS: QUEtiapine FUMARATE 25 MG TABLET PO SCH (21:15)
[2023-08-18] MEDS: FLUCONAZOLE 200 MG/100 ML BAG IV SCH (21:15)
[2023-08-18] MEDS: MIRTAZAPINE TAB 15 MG TAB PO SCH (21:15)
[2023-08-19] MEDS: OLANZapine 10 MG/2.1 ML SDV IM PRN ×2 (01:44→16:36)
[2023-08-19] MEDS: PIPERACILLIN/TAZOBACTAM 4.5 GM in DEXTROSE 5% MINI-B 100 ML IV SCH ×2 (04:51→16:28)
[2023-08-19] MEDS: QUEtiapine FUMARATE 25 MG TABLET PO SCH ×2 (08:28→21:16)
[2023-08-19] MEDS: PANTOprazole 40 MG TAB PO SCH ×2 (08:29→21:16)
[2023-08-19] MEDS: amLODIPine BESYLATE 5 MG TAB PO SCH (08:29)
[2023-08-19] MEDS: HEPARIN SOD 5,000 UNIT/0.5 ML VIAL SQ SCH ×2 (08:29→21:15)
[2023-08-19] MEDS ORDERED: THIAMINE HCL 100 MG TAB PO SCH (09:00)
[2023-08-19 09:19] LABS: Basophils # (auto) 0.06 K/uL (0.00-0.20); Eosinophils % (auto) 1.7 %; Hematocrit (blood only) 28.1 % (42.0-52.0); Hemoglobin 9.4 g/dl (14.0-18.0); Immature Granulocytes # (auto) 0.02 K/uL (0.01-0.20); Immature Granulocytes % (auto) 0.3 %; Lymphocytes # (auto) 0.72 K/uL (1.20-3.40); Lymphocytes % (auto) 12.1 %; Mean Corpuscular Hemoglobin 29.4 pg (25.0-34.0); Mean Corpuscular Hgb Conc 33.5 g/dL (32.0-36.0); Mean Corpuscular Volume 87.8 fL (80.0-100.0); Mean Platelet Volume 10.7 fL (9.4-12.4); Monocytes # (auto) 0.42 K/uL (0.11-0.59); Monocytes % (auto) 7.1 %; Neutrophils # (auto) 4.62 K/uL (1.40-6.50); Neutrophils % (auto) 77.8 %; Platelet Count 231 K/uL (130-400); RDW Coefficient of Variation 16.8 % (11.5-14.5); RDW Standard Deviation 54.1 fL (36.4-46.3); White Blood Count 5.94 K/ul (4.8-10.8)
[2023-08-19] MEDS ORDERED: LORazepam 1 MG in SYRINGE 0.5 ML IV STA (09:43)
[2023-08-19 09:50] LABS: BUN Creatinine Ratio 5.5 (10-20); Calcium 8.2 mg/dl (8.6-10.3); Creatinine Clr Calc Pharmacy 12.2 ml/min; Est GFR (African American) 13.8 ml/min; Est GFR (Non-African American) 11.9 ml/min; Magnesium 1.9 mg/dl (1.7-2.4)
--- NOTE | 2023-08-19 12:59 | Nephrology Progress Note ---
Date of Service August 19, 2023 Assessment & Plan (1) Acute kidney injury: (2) Acute hypoxic respiratory failure: (3) Intra-abdominal abscess: (4) Acute blood loss anemia: (5) Megacolon, toxic: (6) Ileostomy in place: (7) Ulcerative colitis: Plan 53 y o m admitted with Toxic megacolon with new diagnosis of ulcerative colitis, s/p exploratory laparotomy on 06/28/23. Found to have multiple intra-abdominal abscesses and had multiple CT with IV contrast over last 1 month. Also has been multiple courses of antibiotic including cefepime, caspofungin, currently on Zosyn, daptomycin and fluconazole for MRSA and Pseudomonas intra-abdominal infection and abscess. Developed DERIK over last few days with otherwise normal kidney function over last few weeks, creatinine was 0.9 until 07/21/2023. Creatinine was noted to be 2.3 on 07/25/2023 and has been progressively worsen ing and up to 2.9 this morning. Urinalysis with proteinuria but no hematuria or pyuria. Renal ultrasound was otherwise unremarkable. Renal function progressively worsen and became volume overloaded and started on dialysis on 08/12/2023 mainly for volume overload. Has femoral dialysis catheter which has not been functioning well. Had 6 L UF. Had Rapid rise in creatinine off of dialysis over the last weekend and remained oliguric. Had tunneled dialysis catheter 08/16/2023 and HD was resumed. Blood pressure, volume status acceptable. --Getting dialysis, BP stable, tolerating UF --avoid all NSAIDs --Dose medications for eGFR less than 10 Will follow. Admission and Anticipated Discharge Date Admission Date: June 28, 2023 Sean Galan was seen this morning during dialysis. he received Ativan and now he is less agitated. Tolerated UF. Blood pressure stable. Afebrile. No respiratory distress. Review of Systems Review of Systems: Detailed review of system was not possible Physical Exam Constitutional: WD/WN, vitals as above + ill appearing and + cachectic Eyes: + anicteric sclerae Neck: normal visual inspection Respiratory: no respiratory distress Auscultation: lungs clear to auscultation bilaterally Cardiovascular: RRR, no murmur, no edema Extremities: + vascular access device (left femoral catheter) IJ tunneled dialysis catheter, no active bleeding Skin: no rashes, warm and dry Neurologic: no focal motor deficits Psychiatric: Confusion and hallucination Results & Data Vital Signs (Past 12 Hours) Vital Signs Temp Pulse Pulse Pulse Resp BP BP 08/19/23 12:30 101 H 107/79 08/19/23 12:00 97 H 164/88 H 08/19/23 11:30 103 H 154/93 H 08/19/23 11:17 08/19/23 11:00 104 H 121/86 08/19/23 10:30 117 H 122/91 08/19/23 10:00 107 H 134/96 08/19/23 09:30 101 H 146/99 H 08/19/23 09:10 36.5 C 99 H 08/19/23 08:20 36.5 C 119 H 19 145/98 H 08/19/23 03:00 118 H 22 142/93 H Pulse Ox O2 Del Method 08/19/23 12:30 08/19/23 12:00 08/19/23 11:30 08/19/23 11:17 Room Air 08/19/23 11:00 08/19/23 10:30 08/19/23 10:00 08/19/23 09:30 08/19/23 09:10 08/19/23 08:20 98 Room Air 08/19/23 03:00 PG Care Time/CCT Total # of Minutes Spent Total Time Spent with Patient: Total time spent is greater than 50% in coordination of care (as documented) at patient's floor/unit and/or counseling patient: Coding Level of Care Code 32619 SUB INP/OBS CARE 2/35MIN Diagnoses Acute kidney injury N17.9 Acute hypoxic respiratory failure J96.01 Intra-abdominal abscess K65.1 Acute blood loss anemia D62 Megacolon, toxic K59.[address] Z93.2 Ulcerative pancolitis with abscess K51.014 Ulcerative colitis location: ulcerative pancolitis Digestive disease complication type: with abscess (7) Ulcerative colitis Ulcerative colitis location: ulcerative pancolitis Digestive disease complication type: with abscess Qualified Code(s): K51.014 - Ulcerative (chronic) pancolitis with abscess
--- NOTE | 2023-08-19 18:37 | Hospitalist Progress Note ---
Date of Service August 19, 2023 Assessment & Plan (1) Acute kidney injury: Plan: First noted 07/25-maybe ATN due to poor po intake, AIN from meds not likely as no WBCs on UA, could be OSWALDO from CT scans and ATN from infection patient got volume overloaded with minimal response to several doses of IV diuretics Femoral vein temporary dialysis catheter placed. Patient got started on dialysis. 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 Femoral line has been removed -follow BMP -continue HD as per Nephro and [facility] (2) Acute hypoxic respiratory failure: Plan: resolved, was 2/2 volume overload from pleural effusions from DERIK Recent echocardiogram on 06/21 showed normal EF TPN discontinued on 08/11 -still w/ pleural effusions (3) Encephalopathy: Plan: Acute encephalopathy, probably metabolic.Was resolved and now significantly worsened again with hyperactive delirium and is ongoing despite multiple doses of Seroquel and IM Zyprexa Likely from renal failure, possibly from previous Cefepime use, lack of sleep Head CT scan negative. Not sleeping well, hallucinating, delusional No signs of new infection but repeat UA still pending CT abd/pel repeated 08/17 with improving abscesses except LUQ one same. Also with inflammation of bladder c/w cystitis Continue IM Zyprexa bid prn, and increase Seroquel to 50mg po bid scheduled Increased Remeron to 15mg hs for improved sleep and appetite-perhaps should discontinue this as this possibly precipitated worsening mentation? Gave IV ativan x 1 for hemodialysis on 08/17 and again 08/19 but would try to avoid further benzos if possible as this seems to make him worse HD ongoing, antibiotic therapy ongoing Supportive care Resume high dose thiamine given worsening encephalopathy and nystagmus (4) Perforated abdominal viscus: Plan: Patient with recent diagnosis of Ulcerative pancolitis, and had sessile polyp biopsied along with other biopsies on a colonoscopy during previous admission. Presented with free air, to OR 06/28/23 with subtotal colon resection with rectal stump remaining, and ileostomy. Three areas of perforation were identified, abscess and feculent material seen. Pseudomonas, Staphylococcus aureus, and Enterococcus faecium as well as Mariely albicans isolated. RUQ drain has been removed. IR drain in LUQ was in place x 1 month but self- discontinued on 08/[address] scan 07/19 shows persistent fluid collections consistent with abscess 07/23/2023 shows a leukocytosis hence the drain manipulation Repeat abdominal CT on 08/02 with improving size and multiple abscesses but still one that is large 9 cm- discussed with IR not possible as drain additional larger pocket as loculated other pockets too small Wound vac remains in place over midline incision and this wound is healing nicely Pt pulled out his LUQ drain on 08/17 due to encephalopathy. Repeat CT abd/pel 08/17 shows improving sizes in all abscesses except LUQ one still same size IR attempted to place new drain on 08/18 without success Reconsulted Surgery--> given clinically stable i.e. no fevers, leukocytosis, etc., no need for surgical washout at this time as would be quite risky P.o. intake has improved Since 08/13. Patient is eating his meals. TPN discontinued. Poor p.o. intake likely had a lot to do with his renal failure and encephalopathy Appreciate infectious disease recommendations -continue daptomycin, Zosyn, and renally adjusted fluconazole w/ reevaluation for likely extension with CT abd/pel q2-3 weeks-next CT should be around 09/01- 09/08 Switched cefepime to IV Zosyn 08/10 due to concern for cefepime induced neurotoxicity. Patient was getting increasingly lethargic. spoke to infectious disease and nephrology who are both okay with the switch - Discontinued metronidazole after completing course on 08/10 - Patient was started on Remeron for appetite stimulant and in case depression causing poor appetite -Check CK once weekly (Last done on 08/18) while on daptomycin, follow CBC, BMP (5) Acute blood loss anemia: Plan: Postoperatively from initial surgery, now anemia from renal failure, chronic disease as well Then with active bleeding from TIJ site and hgb now down to 7.3, sinus t achycardia, worsening encephalopathy--> transfused 1 unit PRBCs with HD on 08/17 and now hgb up to 9.5 B12, folate, iron studies normal TSH mildly elevated and free T4 mildly low-follow follow CBC Received 3 units of blood this admission (6) Hard of hearing: Plan: Supportive care, wears hearing device (7) Ulcerative colitis: Plan: Patient with ulcerative colitis diagnosed by colonoscopy in 06/2023 Now status post subtotal colectomy with only rectal stump remaining No treatment needed at this point but will need continued surveillance for colorectal CA of the rectal stump Will need follow-up with GI as an outpatient Plan Dispo-continued stay [facility] -current plan in place to be the [facility] when medically [facility]-possibly later this week if encephalopathy continues to improve and if dialysis can be arranged at [facility] system--> likely transition to [facility] system which is a more robust medical facility Admission and Anticipated Discharge Date Admission Date: June 28, 2023 Subjective Continues to be quite confused and restless, agitated. Denies pain, is eating more than previously. Is moving bowels in colostomy bag. Had to take ativan to hold still for dialysis today. Tele with NSR, ST, rates 90-110s Physical Exam Constitutional: + ill appearing, + altered mental status and + underweight Eyes: + anicteric sclerae and PERRL Respiratory: normal respiratory effort, lungs clear to auscultation Cardiovascular: RRR, no murmur, no edema Chest (Breasts): Chest: + vascular access device or port (R TIJ cath) Gastrointestinal (Abdomen): Inspection/Auscultation: normal bowel sounds; + abdomen abnormal to inspection (colostomy bag w/ stool, gas; wound vac LLQ) and no abdominal surgical drain present (removed) Percussion/Palpation: abdomen soft; abdomen nontender Musculoskeletal: Extremities: extremities normal to inspection Neurologic: awake and + confused restless, able to follow commands with some mild nystagmus Results & Data Results & Data Vital Signs (Past 12 Hours) Vital Signs Temp Pulse Pulse Pulse Resp BP BP 08/19/23 16:10 36.5 C 106 H 15 132/96 08/19/23 14:19 110 H 08/19/23 13:20 36.5 C 93 H 139/95 08/19/23 13:00 101 H 125/89 08/19/23 12:30 101 H 107/79 08/19/23 12:00 97 H 164/88 H 08/19/23 11:30 103 H 154/93 H 08/19/23 11:17 08/19/23 11:00 104 H 121/86 08/19/23 10:30 117 H 122/91 08/19/23 10:00 107 H 134/96 08/19/23 09:30 101 H 146/99 H 08/19/23 09:10 36.5 C 99 H 08/19/23 08:20 36.5 C 119 H 19 145/98 H 08/19/23 07:15 90 Pulse Ox O2 Del Method 08/19/23 16:10 97 Room Air 08/19/23 14:19 08/19/23 13:20 08/19/23 13:00 08/19/23 12:30 08/19/23 12:00 08/19/23 11:30 08/19/23 11:17 Room Air 08/19/23 11:00 08/19/23 10:30 08/19/23 10:00 08/19/23 09:30 08/19/23 09:10 08/19/23 08:20 98 Room Air 08/19/23 07:15 Laboratory Results CBC, BMP, magnesium reviewed PG Care Time/CCT Total # of Minutes Spent Total Time Spent with Patient: Total time spent is greater than 50% in coordination of care (as documented) at patient's floor/unit and/or counseling patient: Coding Level of Care Code 18968 SUB INP/OBS CARE 3/50MIN Diagnoses Acute kidney injury N17.9 Acute hypoxic respiratory failure J96.01 Encephalopathy G93.40 Perforated abdominal viscus R19.8 Acute blood loss anemia D62 Bilateral hearing loss, unspecified hearing loss type H91.93 Hearing loss type: unspecified Laterality: bilateral Ulcerative pancolitis with abscess K51.014 Digestive disease complication type: with abscess Ulcerative colitis location: ulcerative pancolitis (6) Hard of hearing Hearing loss type: unspecified Laterality: bilateral Qualified Code(s): H91.93 - Unspecified hearing loss, bilateral (7) Ulcerative colitis Digestive disease complication type: with abscess Ulcerative colitis location: ulcerative pancolitis Qualified Code(s): K51.014 - Ulcerative (chronic) pancolitis with abscess
[2023-08-19] MEDS: DAPTOmycin 600 MG in SYRINGE 0 ML IV SCH (21:00)
[2023-08-19] MEDS: FLUCONAZOLE 200 MG/100 ML BAG IV SCH (21:00)
[2023-08-19] MEDS: THIAMINE HCL 500 MG in SODIUM CHLORIDE 0.9% 50 ML IV SCH (21:07)
[2023-08-19] MEDS: MIRTAZAPINE TAB 15 MG TAB PO SCH (21:17)
[2023-08-19] MEDS: FAMOTIDINE 20 MG in SYRINGE 3 ML IV SCH (21:57)
[2023-08-20] MEDS: THIAMINE HCL 500 MG in SODIUM CHLORIDE 0.9% 50 ML IV SCH ×3 (02:58→18:10)
[2023-08-20] MEDS: PIPERACILLIN/TAZOBACTAM 4.5 GM in DEXTROSE 5% MINI-B 100 ML IV SCH ×2 (04:21→16:00)
[2023-08-20 07:17] LABS: Basophils # (auto) 0.05 K/uL (0.00-0.20); Basophils % (auto) 0.9 %; Eosinophils # (auto) 0.09 K/uL (0.00-0.50); Eosinophils % (auto) 1.7 %; Hematocrit (blood only) 30.3 % (42.0-52.0); Hemoglobin 9.9 g/dl (14.0-18.0); Immature Granulocytes # (auto) 0.01 K/uL (0.01-0.20); Immature Granulocytes % (auto) 0.2 %; Lymphocytes # (auto) 0.89 K/uL (1.20-3.40); Lymphocytes % (auto) 16.8 %; Mean Corpuscular Hemoglobin 29.5 pg (25.0-34.0); Mean Corpuscular Hgb Conc 32.7 g/dL (32.0-36.0); Mean Corpuscular Volume 90.2 fL (80.0-100.0); Mean Platelet Volume 10.4 fL (9.4-12.4); Monocytes # (auto) 0.39 K/uL (0.11-0.59); Monocytes % (auto) 7.4 %; Neutrophils # (auto) 3.87 K/uL (1.40-6.50); Platelet Count 229 K/uL (130-400); RDW Coefficient of Variation 16.7 % (11.5-14.5); RDW Standard Deviation 55.3 fL (36.4-46.3); Red Blood Count 3.36 M/uL (4.70-6.10)
[2023-08-20 07:34] LABS: Albumin Globulin Ratio 0.7 (0.9-2); Albumin Level 2.4 gm/dl (3.4-5.0); BUN Creatinine Ratio 4.8 (10-20); Bilirubin,Total 0.5 mg/dl (0.2-1.0); Calcium 8.3 mg/dl (8.6-10.3); Creatinine Clr Calc Pharmacy 18.2 ml/min; Est GFR (Non-African American) 23.3 ml/min; Globulin 3.6 gm/dl (2.5-4.0); Magnesium 1.8 mg/dl (1.7-2.4); Phosphorus 3.7 mg/dl (2.5-4.9); Potassium 3.8 mmol/L (3.5-5.1)
[2023-08-20] MEDS: QUEtiapine FUMARATE 25 MG TABLET PO SCH ×2 (08:43→21:03)
[2023-08-20] MEDS: HEPARIN SOD 5,000 UNIT/0.5 ML VIAL SQ SCH ×2 (08:43→21:03)
[2023-08-20] MEDS: PANTOprazole 40 MG TAB PO SCH ×2 (08:43→21:04)
[2023-08-20] MEDS: amLODIPine BESYLATE 5 MG TAB PO SCH (08:44)
--- NOTE | 2023-08-20 09:42 | CT Scan Report ---
HEAD CT NONCONTRAST CT DOSE: 547.75 mGy.cm HISTORY: altered mental status TECHNIQUE: Multiaxial CT images of the head were performed without the use of intravenous contrast. A utomated exposure control was utilized for this study. A dose lowering technique was utilized adheri ng to the principles of ALARA. Comparison: Head CT 08/09/2023. Findings: There is a 2.7 cm retention cyst within the left maxillary sinus. A right moderate mastoid effusion has increased in size. The left mastoid air cells are clear. The calvarium and skull base ar e intact. 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 There is no mass, hematoma, midline shift or acute infarct. The ventricles and sulci are within nor mal limits. Impression: 1. No acute infarct or intracranial hemorrhage. 2. Moderate right mastoid effusion which has slightly increased in size. ACT 112: Negative or not required by law. Electronically signed by: Lior Richardson M.D. 08/20/2023 9:40 AM
[2023-08-20 11:47] LABS: Appearance Urine Cloudy (Clear); Bacteria Urine Automated Negative (Negative); Bilirubin Urine Negative (Negative); Blood Urine 1+ (Negative); Color Urine Yellow; Epithelial Cell Urine Auto >30 /lpf (0-5); Glucose Urine UA Negative (Negative); Ketones Urine Negative (Negative); Leukocyte Esterase Urine Negative (Negative); Nitrite Urine Negative (Negative); Specific Gravity Urine 1.013 (1.000-1.030); Urobilinogen Urine Negative (Negative); WBC Urine Automated >30 /hpf (0-5); pH Urine 7.5 (4.5-7.5)
[2023-08-20 11:53] LABS: Protein Urine 2+ (Negative)
[2023-08-20 12:10] LABS: Cast Urine Automated >30 /lpf (0-5)
--- NOTE | 2023-08-20 12:45 | Electrocardiogram Report ---
Test Reason : Blood Pressure : / mmHG Vent. Rate : 090 BPM Atrial Rate : 090 BPM P-R Int : 140 ms QRS Dur : 076 ms QT Int : 406 ms P-R-T Axes : 072 076 269 degrees QTc Int : 496 ms Normal sinus rhythm Prolonged QT Abnormal ECG When compared with ECG of 09-AUG-2023 06:41, Questionable change in QRS axis ST no longer depressed in Inferior leads Inverted T waves have replaced nonspecific T wave abnormality in Inferior leads Confirmed by Eduardo Rojo ([id number]) on 08/20/2023 12:45:17 PM Referred By: [facility] Confirmed By:Eduardo Rojo
--- NOTE | 2023-08-20 12:50 | Nephrology Progress Note ---
Date of Service August 20, 2023 Assessment & Plan (1) Acute kidney injury: (2) Acute hypoxic respiratory failure: (3) Intra-abdominal abscess: (4) Acute blood loss anemia: (5) Megacolon, toxic: (6) Ileostomy in place: (7) Ulcerative colitis: Plan 53 y o m admitted with Toxic megacolon with new diagnosis of ulcerative colitis, s/p exploratory laparotomy on 06/28/23. Found to have multiple intra-abdominal abscesses and had multiple CT with IV contrast over last 1 month. Also has been multiple courses of antibiotic including cefepime, caspofungin, currently on Zosyn, daptomycin and fluconazole for MRSA and Pseudomonas intra-abdominal infection and abscess. Developed DERIK over last few days with otherwise normal kidney function over last few weeks, creatinine was 0.9 until 07/21/2023. Creatinine was noted to be 2.3 on 07/25/2023 and has been progressively worsen ing and up to 2.9 this morning. Urinalysis with proteinuria but no hematuria or pyuria. Renal ultrasound was otherwise unremarkable. Renal function progressively worsen and became volume overloaded and started on dialysis on 08/12/2023 mainly for volume overload. Femoral dialysis catheter was not functioning well and was off of HD for 3 days. Had Rapid rise in creatinine off of dialysis over the last weekend and remained oliguric. Had tunneled dialysis catheter on 08/16/2023 and HD was resumed. Blood pressure, volume status acceptable. Remained oligo anuric. --dialysis tomorrow, BP stable, tolerating UF. Monitor off of dialysis Wednesday but concern for reaching ESKD --avoid all NSAIDs --Dose medications for eGFR less than 10 Will follow. Admission and Anticipated Discharge Date Admission Date: June 28, 2023 Sean Galan was seen this morning. He has been agitated but now sleeping, did not respond, has been receiving Seroquel. Had HD yesterday. Has not been making much urine. Blood pressure stable. Afebrile. Electrolytes acceptable. Review of Systems Review of Systems: Detailed review of system was not possible Physical Exam Constitutional: WD/WN, vitals as above + ill appearing and + cachectic Eyes: + anicteric sclerae Neck: normal visual inspection Respiratory: no respiratory distress Auscultation: lungs clear to auscultation bilaterally Cardiovascular: RRR, no murmur, no edema Extremities: + vascular access device (left femoral catheter) IJ tunneled dialysis catheter, no active bleeding Skin: no rashes, warm and dry Neurologic: no focal motor deficits Psychiatric: Confusion and hallucination Results & Data Vital Signs (Past 12 Hours) Vital Signs Temp Pulse Pulse Pulse Resp BP Pulse Ox 08/20/23 11:39 08/20/23 07:40 36.3 C L 104 H 18 131/85 98 08/20/23 07:21 105 H 08/20/23 05:16 36.3 C L 109 H 18 149/93 H 99 O2 Del Method 08/20/23 11:39 Room Air 08/20/23 07:40 Room Air 08/20/23 07:21 08/20/23 05:16 Room Air PG Care Time/CCT Total # of Minutes Spent Total Time Spent with Patient: Total time spent is greater than 50% in coordination of care (as documented) at patient's floor/unit and/or counseling patient: Coding Level of Care Code 66442 SUB INP/OBS CARE 2/35MIN Diagnoses Acute kidney injury N17.9 Acute hypoxic respiratory failure J96.01 Intra-abdominal abscess K65.1 Acute blood loss anemia D62 Megacolon, toxic K59.[address] Z93.2 Ulcerative pancolitis with abscess K51.014 Ulcerative colitis location: ulcerative pancolitis Digestive disease complication type: with abscess (7) Ulcerative colitis Ulcerative colitis location: ulcerative pancolitis Digestive disease complication type: with abscess Qualified Code(s): K51.014 - Ulcerative (chronic) pancolitis with abscess
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
[2023-08-20] MEDS: FLUCONAZOLE 200 MG/100 ML BAG IV SCH (21:02)
[2023-08-20] MEDS: MIRTAZAPINE TAB 15 MG TAB PO SCH (21:03)
[2023-08-20] MEDS: ACETAMINOPHEN 325 MG TAB PO PRN (21:16)
[2023-08-21] MEDS: THIAMINE HCL 500 MG in SODIUM CHLORIDE 0.9% 50 ML IV SCH ×2 (04:03→14:05)
[2023-08-21] MEDS: PIPERACILLIN/TAZOBACTAM 4.5 GM in DEXTROSE 5% MINI-B 100 ML IV SCH ×2 (04:03→15:33)
[2023-08-21 05:49] LABS: Basophils # (auto) 0.06 K/uL (0.00-0.20); Basophils % (auto) 1.2 %; Eosinophils # (auto) 0.14 K/uL (0.00-0.50); Eosinophils % (auto) 2.7 %; Hematocrit (blood only) 29.1 % (42.0-52.0); Hemoglobin 9.5 g/dl (14.0-18.0); Immature Granulocytes # (auto) 0.02 K/uL (0.01-0.20); Immature Granulocytes % (auto) 0.4 %; Lymphocytes # (auto) 0.84 K/uL (1.20-3.40); Lymphocytes % (auto) 16.3 %; Mean Corpuscular Hemoglobin 29.3 pg (25.0-34.0); Mean Corpuscular Hgb Conc 32.6 g/dL (32.0-36.0); Mean Corpuscular Volume 89.8 fL (80.0-100.0); Mean Platelet Volume 9.9 fL (9.4-12.4); Monocytes # (auto) 0.46 K/uL (0.11-0.59); Monocytes % (auto) 8.9 %; Neutrophils # (auto) 3.62 K/uL (1.40-6.50); Neutrophils % (auto) 70.5 %; Platelet Count 275 K/uL (130-400); RDW Coefficient of Variation 16.9 % (11.5-14.5); RDW Standard Deviation 55.1 fL (36.4-46.3); Red Blood Count 3.24 M/uL (4.70-6.10); White Blood Count 5.14 K/ul (4.8-10.8)
[2023-08-21 05:59] LABS: BUN Creatinine Ratio 5.4 (10-20); Creatinine Clr Calc Pharmacy 12.6 ml/min; Est GFR (African American) 16.4 ml/min; Est GFR (Non-African American) 14.1 ml/min; Potassium 4.3 mmol/L (3.5-5.1)
--- NOTE | 2023-08-21 12:23 | Nephrology Progress Note ---
Date of Service August 21, 2023 Assessment & Plan (1) Acute kidney injury: Plan: Attributed to ATN. Non-oliguric. Remains on HD for clearance. Orders for HD today entered into the EHR and reviewed with sample dye mixer. Patient was seen and evaluated during hemodialysis. Started HD 08/12/23. TDC placed 08/16/[address] Kamara. Medications are appropriately dosed for kidney function. (2) Intra-abdominal abscess: Plan: Remains on daptomycin, Zosyn, and fluconazole. Medications appropriate for kidney function. CK weekly on dapto. (3) Encephalopathy: Plan: Remains on Seroquel, Remeron, and Zyprexa. Somnolent/lethargic. Tolerating HD reasonably well. Hemodynamically stable. No signs of uncontrolled infection. (4) Ileostomy in place: (5) Ulcerative colitis: Admission and Anticipated Discharge Date Admission Date: June 28, 2023 Subjective No acute events overnight. Adama was seen and evaluated during hemodialysis this morning. He opened his eyes but did not answer questions. He was not wearing his hearing aids. He does not endorse pain or discomfort. He was very lethargic and sleeping through treatment. No fevers or chills. BP acceptable. Review of Systems Review of Systems: All systems reviewed & are unremarkable except as noted in HPI & below and Unobtainable due to cognitive status (patient declined to engage in conversation and closed eyes ) Physical Exam Constitutional: + cachectic and + frail appearing Eyes: + anicteric sclerae; no corneal abnormal ity ENMT: Mouth: + dry oral mucous membranes; no oral mucosal abnormality Neck: normal visual inspection and trachea midline Respiratory: normal respiratory effort Auscultation: lungs clear to auscultation bilaterally Cardiovascular: Rate/Rhythm: regular rate Heart Sounds: normal S1 and normal S2 Extremities: no edema Musculoskeletal: Extremities: no cyanosis and no clubbing Skin: normal turgor; no jaundice Neurologic: Motor/Sensory: no tremor and no asterixis Psychiatric: Orientation: alert and oriented x 3 Results & Data Vital Signs (Past 12 Hours) Vital Signs Temp Pulse Pulse Resp BP BP Pulse Ox 08/21/23 12:00 106 H 128/92 08/21/23 11:30 105 H 124/95 08/21/23 11:00 106 H 129/90 08/21/23 10:30 105 H 120/92 08/21/23 10:26 08/21/23 10:00 97 H 135/87 08/21/23 09:33 88 159/105 H 08/21/23 09:25 36.5 C 91 H 08/21/23 07:49 36.6 C 97 H 18 148/96 H 96 08/21/23 07:19 97 H 08/21/23 05:17 100 H O2 Del Method 08/21/23 12:00 08/21/23 11:30 08/21/23 11:00 08/21/23 10:30 08/21/23 10:26 Room Air 08/21/23 10:00 08/21/23 09:33 08/21/23 09:25 08/21/23 07:49 Room Air 08/21/23 07:19 08/21/23 05:17 Laboratory Results Laboratory Results - last 24 hr 08/21/23 05:29 WBC 5.14 RBC 3.24 L Hgb 9.5 L Hct 29.1 L MCV 89.8 MCH 29.3 MCHC 32.6 RDW Std Deviation 55.1 H RDW Coeff of Ashley 16.9 H Plt Count 275 MPV 9.9 Immature Gran % (Auto) 0.4 Neut % (Auto) 70.5 Lymph % (Auto) 16.3 Stearns % (Auto) 8.9 Eos % (Auto) 2.7 Baso % (Auto) 1.2 Neut # (Auto) 3.62 Lymph # (Auto) 0.84 L Stearns # (Auto) 0.46 Eos # (Auto) 0.14 Baso # (Auto) 0.06 Immature Gran # (Auto) 0.02 Sodium 139 Potassium 4.3 Chloride 104 Carbon Dioxide 22 Anion Gap 13 H BUN 24 H Creatinine 4.41 H D Est Cr Clr Drug Dosing 12.6 Est GFR ( Amer) 16.4 Est GFR (Non-Af Amer) 14.1 BUN/Creatinine Ratio 5.4 L Glucose 74 Calcium 8.0 L Magnesium 2.0 PG Care Time/CCT Total # of Minutes Spent Total Time Spent with Patient: Total time spent is greater than 50% in coordination of care (as documented) at patient's floor/unit and/or counseling patient: Coding Level of Care Code 36540 SUB INP/OBS CARE 3/50MIN Diagnoses Acute kidney injury N17.9 Intra-abdominal abscess K65.1 Encephalopathy G93.[address] Z93.2 Ulcerative pancolitis with abscess K51.014 Ulcerative colitis location: ulcerative pancolitis Digestive disease complication type: with abscess (5) Ulcerative colitis Ulcerative colitis location: ulcerative pancolitis Digestive disease complication type: with abscess Qualified Code(s): K51.014 - Ulcerative (chronic) pancolitis with abscess
[2023-08-21] MEDS: amLODIPine BESYLATE 5 MG TAB PO SCH (13:19)
[2023-08-21] MEDS: QUEtiapine FUMARATE 25 MG TABLET PO SCH ×2 (13:21→19:59)
[2023-08-21] MEDS: PANTOprazole 40 MG TAB PO SCH ×2 (13:21→20:02)
[2023-08-21] MEDS: ACETAMINOPHEN 325 MG TAB PO PRN (13:28)
--- NOTE | 2023-08-21 17:26 | Hospitalist Progress Note ---
Date of Service August 21, 2023 Assessment & Plan (1) Acute kidney injury: Plan: First noted 07/25-maybe ATN due to poor po intake, AIN from meds not likely as no WBCs on UA, could be OSWALDO from CT scans and ATN from infection patient got volume overloaded with minimal response to several doses of IV diuretics Femoral vein temporary dialysis catheter placed. 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 Femoral line has since been removed -follow BMP -continue HD as per Nephro and will need HD set up at residential (2) Encephalopathy: Plan: Acute encephalopathy, probably metabolic. Was resolved and then significantly worsened again with hyperactive delirium and was ongoing despite multiple doses of Seroquel and IM Zyprexa the week of 08/13 Likely from renal failure, possibly from previous Cefepime use, lack of sleep, possibly Wernicke's?? Was not sleeping well, hallucinating, delusional, had nystagmus No signs of new infection and repeat UA no infection, Ur cx no growth CT abd/pel repeated 08/17 with improving abscesses except LUQ one same. Also with inflammation of bladder c/w cystitis Head CT scan negative and repeated on 08/20-again neg for acute STarted empiric high dose thiamine again on 08/19 and increased Seroquel to 50mg po bid on 08/19--> 08/20 mentation MUCH improved and continues to be doing significantly better on 08/21 Now almost too drowsy during day since increasing Seroquel Continue IM Zyprexa bid prn (but has not needed now in a few days) Decrease AM dose of Seroquel back to 25mg qAM and keep 50mg qhs--> ECG with mildly prolonged QTc-follow while on diflucan Continue Remeron 15mg hs for improved sleep and appetite Gave IV ativan x 1 for hemodialysis on 08/17 and again 08/19 but would try to avoid further benzos if possible as this seemed to make him worse HD ongoing, antibiotic therapy ongoing Supportive care Convert thiamine to 200mg po bid x 1 month through 09/21/23 (3) Perforated abdominal viscus: Plan: Patient with recent diagnosis of Ulcerative pancolitis, and had sessile polyp biopsied along with other biopsies on a colonoscopy during previous admission. Presented with free air, to OR 06/28/23 with subtotal colon resection with rectal stump remaining, and ileostomy. Three areas of perforation were identified, abscess and feculent material seen. Pseudomonas, Staphylococcus aureus, and Enterococcus faecium as well as Mariely albicans isolated. Repeat abdominal CT scan 07/19 shows persistent fluid collections consistent with abscess 07/23/2023 shows a leukocytosis hence the drain manipulation Repeat abdominal CT on 08/02 with improving size and multiple abscesses but still one that is large 9 cm- discussed with IR not possible as drain additional larger pocket as loculated other pockets too small Wound vac remains in place over midline incision and this wound is healing nicely Pt pulled out his LUQ drain on 08/17 due to encephalopathy. Repeat CT abd/pel 08/17 shows improving sizes in all abscesses except LUQ one still same size IR attempted to place new drain on 08/18 without success Reconsulted Surgery--> given clinically stable i.e. no fevers, leukocytosis, etc., no need for surgical washout at this time as would be quite risky P.o. intake has improved quite a bit. TPN discontinued. Poor p.o. intake likely had a lot to do with his renal failure and encephalopathy Appreciate infectious disease recommendations -continue daptomycin, Zosyn, and renally adjusted fluconazole w/ reevaluation for likely extension with CT abd/pel q2-3 weeks-next CT should be around 09/01- 09/08 Switched cefepime to IV Zosyn 08/10 due to concern for cefepime induced neurotoxicity. Patient was getting increasingly lethargic. spoke to infectious disease and nephrology who are both okay with the switch - Discontinued metronidazole after completing course on 08/10 - Patient was started on Remeron for appetite stimulant and in case depression causing poor appetite -Check CK once weekly (Last done on 08/18) while on daptomycin, follow CBC, BMP -changing wound vac q72h--> wound looks excellent (4) Acute hypoxic respiratory failure: Plan: resolved, was 2/2 volume overload from pleural effusions from DERIK Recent echocardiogram on 06/21 showed normal EF TPN discontinued on 08/11 -still w/ pleural effusions and now reports coughing up some sputum -add flutter valve -improved nutrition and increasing albumin levels will help with third spacing causing pleural effusions (5) Acute blood loss anemia: Plan: Postoperatively from initial surgery, now anemia from renal failure, chronic disease as well Then with active bleeding from TIJ site and hgb now down to 7.3, sinus tachycardia, worsening encephalopathy--> transfused 1 unit PRBCs with HD on 08/17 and now hgb up to 9.5 B12, folate, iron studies normal TSH mildly elevated and free T4 mildly low-follow follow CBC Received 3 units of blood this admission (6) Hard of hearing: Plan: Supportive care, wears hearing device (7) Ulcerative colitis: Plan: Patient with ulcerative colitis diagnosed by colonoscopy in 06/2023 Now status post subtotal colectomy with only rectal stump remaining No treatment needed at this point but will need continued surveillance for colorectal CA of the rectal stump Will need follow-up with GI as an outpatient Plan Dispo-continued stay Extensive discussion with the residential system -dialysis needs to be arranged at residential system--> likely transition to [facility] residential system which is a more robust medical facility Now that the encephalopathy is greatly improved and he is eating more, need to reconsult PT and mobilize more. He is on his way finally towards discharge likely early next week. Admission and Anticipated Discharge Date Admission Date: June 28, 2023 Subjective Pt slept most of the day including through HD, but I woke him up at 5:45 PM and he was not confused at all. He is still in disbelief that he can't remember the last week. He reports he is coughing up some "phlegm balls" and feels "phlegmy." No pain. Tele with NSR rates 80-100s Physical Exam Constitutional: + cachectic; no acute distress Eyes: + anicteric sclerae Respiratory: normal respiratory effort, lungs clear to auscultation (with diminished BS at bases) Cardiovascular: RRR, no murmur, no edema Chest (Breasts): Chest: + vascular access device or port (R TIJ cath) Gastrointestinal (Abdomen): Inspection/Auscultation: normal bowel sounds; + abdomen abnormal to inspection (colostomy bag w/ stool, gas; wound vac LLQ) and no abdominal surgical drain present (removed) Percussion/Palpation: abdomen soft; abdomen nontender Musculoskeletal: Extremities: extremities normal to inspection Neurologic: moves all extremities and awake; no focal motor deficits and not confused Speech / Cognition: normal speech Motor/Sensory: no tremor Psychiatric: A+Ox3, euthymic affect Orientation: cooperative Results & Data Results & Data Vital Signs (Past 12 Hours) Vital Signs Temp Pulse Pulse Resp BP BP Pulse Ox 08/21/23 15:40 36.4 C L 108 H 19 126/93 94 08/21/23 13:49 36.5 C 118 H 18 118/60 98 08/21/23 13:20 36.7 C 96 H 125/82 08/21/23 13:00 115 H 80/64 L 08/21/23 12:30 110 H 128/92 08/21/23 12:00 106 H 128/92 08/21/23 11:30 105 H 124/95 08/21/23 11:00 106 H 129/90 08/21/23 10:30 105 H 120/92 08/21/23 10:26 08/21/23 10:00 97 H 135/87 08/21/23 09:33 88 159/105 H 08/21/23 09:25 36.5 C 91 H 08/21/23 07:49 36.6 C 97 H 18 148/96 H 96 08/21/23 07:19 97 H O2 Del Method 08/21/23 15:40 Room Air 08/21/23 13:49 Room Air 08/21/23 13:20 08/21/23 13:00 08/21/23 12:30 08/21/23 12:00 08/21/23 11:30 08/21/23 11:00 08/21/23 10:30 08/21/23 10:26 Room Air 08/21/23 10:00 08/21/23 09:33 08/21/23 09:25 08/21/23 07:49 Room Air 08/21/23 07:19 Laboratory Results CBC, BMP, magnesium reviewed Ur cx prelim no growth PG Care Time/CCT Total # of Minutes Spent Total Time Spent with Patient: Total time spent is greater than 50% in coordination of care (as documented) at patient's floor/unit and/or counseling patient: Coding Level of Care Code 47446 SUB INP/OBS CARE 3/50MIN Diagnoses Acute kidney injury N17.9 Encephalopathy G93.40 Perforated abdominal viscus R19.8 Acute hypoxic respiratory failure J96.01 Acute blood loss anemia D62 Bilateral hearing loss, unspecified hearing loss type H91.93 Hearing loss type: unspecified Laterality: bilateral Ulcerative pancolitis with abscess K51.014 Digestive disease complication type: with abscess Ulcerative colitis location: ulcerative pancolitis (6) Hard of hearing Hearing loss type: unspecified Laterality: bilateral Qualified Code(s): H91.93 - Unspecified hearing loss, bilateral (7) Ulcerative colitis Digestive disease complication type: with abscess Ulcerative colitis location: ulcerative pancolitis Qualified Code(s): K51.014 - Ulcerative (chronic) pancolitis with abscess
[2023-08-21] MEDS: FLUCONAZOLE 200 MG/100 ML BAG IV SCH (19:54)
[2023-08-21] MEDS: DAPTOmycin 600 MG in SYRINGE 0 ML IV SCH (19:57)
[2023-08-21] MEDS: MIRTAZAPINE TAB 15 MG TAB PO SCH (20:01)
[2023-08-21] MEDS: THIAMINE HCL 100 MG TAB PO SCH (20:20)
[2023-08-22] MEDS: PIPERACILLIN/TAZOBACTAM 4.5 GM in DEXTROSE 5% MINI-B 100 ML IV SCH ×2 (04:13→15:35)
[2023-08-22] MEDS: QUEtiapine FUMARATE 25 MG TABLET PO SCH ×2 (08:45→20:17)
[2023-08-22] MEDS: amLODIPine BESYLATE 5 MG TAB PO SCH (08:46)
[2023-08-22] MEDS: PANTOprazole 40 MG TAB PO SCH ×2 (08:46→20:17)
[2023-08-22] MEDS: THIAMINE HCL 100 MG TAB PO SCH ×2 (08:46→20:17)
[2023-08-22 09:01] LABS: Albumin Globulin Ratio 0.7 (0.9-2); Albumin Level 2.7 gm/dl (3.4-5.0); BUN Creatinine Ratio 5.3 (10-20); Bilirubin,Total 0.6 mg/dl (0.2-1.0); Calcium 8.6 mg/dl (8.6-10.3); Creatinine Clr Calc Pharmacy 16.5 ml/min; Est GFR (African American) 24.1 ml/min; Est GFR (Non-African American) 20.8 ml/min; Globulin 3.8 gm/dl (2.5-4.0); Magnesium 1.9 mg/dl (1.7-2.4); Potassium 4.2 mmol/L (3.5-5.1); Total Protein 6.5 gm/dl (6.0-8.3)
--- NOTE | 2023-08-22 13:08 | Nephrology Progress Note ---
Date of Service August 22, 2023 Assessment & Plan (1) Acute kidney injury: Plan: Attributed to ATN. Dependent on HD for clearance. Completed dialysis yesterday without complications. Adequate clearance. Volume status controlled. Continue to monitor for renal recovery. Repeat renal profile tomorrow AM. Document I/Os. Started HD 08/12/23. TDC placed 08/16/[address] Kamara. Medications are appropriately dosed for kidney function. (2) Intra-abdominal abscess: Plan: Remains on daptomycin, Zosyn, and fluconazole. Medications appropriate for kidney function. CK weekly on dapto. (3) Encephalopathy: Plan: Notable improvement in metabolic encephalopathy. Encourage nutrition. (4) Ileostomy in place: (5) Ulcerative colitis: Admission and Anticipated Discharge Date Admission Date: June 28, 2023 Subjective No acute events overnight. Awake and significantly more conversational. Appetite remains poor. No fevers or chills. Denies pain. Tolerated HD well yesterday. Net UF 2 L. BP low at end of treatment. Review of Systems Review of Systems: All systems reviewed & are unremarkable except as noted in HPI & below Physical Exam Constitutional: well developed, + cachectic and + frail appearing; no acute distress Eyes: + anicteric sclerae; no corneal abnormal ity ENMT: Mouth: + dry oral mucous membranes; no oral mucosal abnormality Neck: normal visual inspection and trachea midline Respiratory: normal respiratory effort Auscultation: lungs clear to a uscultation bilaterally Cardiovascular: Rate/Rhythm: regular rate Heart Sounds: normal S1 and normal S2 Extremities: no edema Musculoskeletal: Extremities: no cyanosis and no clubbing Skin: normal turgor; no jaundice Neurologic: Motor/Sensory: no tremor and no asterixis Psychiatric: Orientation: alert and oriented x 3 Results & Data Vital Signs (Past 12 Hours) Vital Signs Temp Pulse Pulse Resp BP Pulse Ox O2 Del Method 08/22/23 10:16 Room Air 08/22/23 08:07 36.8 C 77 18 144/98 H 99 Room Air 08/22/23 07:00 94 H 08/22/23 04:10 36.9 C 96 H 20 146/91 H 98 Room Air Laboratory Results Laboratory Results - last 24 hr 08/22/23 08/22/23 05:29 09:10 Sodium 138 Potassium 4.2 Chloride 100 Carbon Dioxide 25 Anion Gap 13 H BUN 17 Creatinine 3.20 H D Est Cr Clr Drug Dosing 16.5 Est GFR ( Amer) 24.1 Est GFR (Non-Af Amer) 20.8 BUN/Creatinine Ratio 5.3 L Glucose 52 L* POC Glucose 85 Calcium 8.6 Magnesium 1.9 Total Bilirubin 0.6 AST 19 ALT 14 Alkaline Phosphatase 327 H Total Protein 6.5 Albumin 2.7 L Globulin 3.8 Albumin/Globulin Ratio 0.7 L PG Care Time/CCT Total # of Minutes Spent Total Time Spent with Patient: Total time spent is greater than 50% in coordination of care (as documented) at patient's floor/unit and/or counseling patient: Coding Level of Care Code 08869 SUB INP/OBS CARE 350MIN Diagnoses Acute kidney injury N17.9 Intra-abdominal abscess K65.1 Encephalopathy G93.[address] Z93.2 Ulcerative pancolitis with abscess K51.014 Ulcerative colitis location: ulcerative pancolitis Digestive disease complication type: with abscess (5) Ulcerative colitis Ulcerative colitis location: ulcerative pancolitis Digestive disease complication type: with abscess Qualified Code(s): K51.014 - Ulcerative (chronic) pancolitis with abscess
--- NOTE | 2023-08-22 16:55 | Hospitalist Progress Note ---
Date of Service August 22, 2023 Assessment & Plan (1) Acute kidney injury: Plan: First noted 07/25-maybe ATN due to poor po intake and previous sepsis, AIN from meds not likely as no WBCs on UA, could be OSWALDO from CT scans patient got volume overloaded with minimal response to several doses of IV diuretics Femoral vein temporary dialysis catheter placed and started on dialysis on 08/12, 08/13. 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 Femoral line has since been removed -follow BMP -continue HD as per Nephro and will need HD set up at longterm (2) Encephalopathy: Plan: Acute encephalopathy, probably metabolic from hospital delirium, insomnia, thiamine deficiency/Wernicke's encephalopathy, renal failure, and possibly medication/antibiotic induced. Initial bout of encephalopathy previously resolved and then significantly worsened again with hyperactive delirium the week of 08/13.Was not sleeping well, hallucinating, delusional, had nystagmus No signs of new infection and repeat UA no infection, Ur cx no growth CT abd/pel repeated 08/17 with improving abscesses except LUQ one same. Also with inflammation of bladder c/w cystitis Head CT scan negative and repeated on 08/20-again neg for acute Started empiric high dose thiamine on 08/19 and increased Seroquel to 50mg po bid--> 08/20 mentation MUCH improved and continues to be doing significantly better Continue IM Zyprexa bid prn (but has not needed now in a few days) Continue Seroquel 25mg qAM and 50mg qhs--> ECG with mildly prolonged QTc-follow periodically while on diflucan Continue Remeron 15mg hs for improved sleep and appetite Gave IV ativan x 1 for hemodialysis on 08/17 and again 08/19 but would try to avoid further benzos if possible as this seemed to make him worse HD ongoing, antibiotic therapy ongoing Supportive care Received thiamine 500 Mg IV every 8 x 6 doses and converted to 200mg po bid x 1 month through 09/21/23 (3) Perforated abdominal viscus: Plan: Patient with recent diagnosis of Ulcerative pancolitis, and had sessile polyp biopsied along with other biopsies on a colonoscopy during previous admission. Presented with free air, to OR 06/28/23 with subtotal colon resection with rectal stump remaining, and ileostomy. Three areas of perforation were identified, abscess and feculent material seen. Pseudomonas, Staphylococcus aureus, and Enterococcus faecium as well as Mariely albicans isolated. Repeat abdominal CT scan 07/19 shows persistent fluid collections consistent with abscess 07/23/2023 shows a leukocytosis hence the drain manipulation Repeat abdominal CT on 08/02 with improving size and multiple abscesses but still one that is large 9 cm- discussed with IR not possible as drain additional larger pocket as loculated other pockets too small Wound vac remains in place over midline incision and this wound is healing nicely Pt pulled out his LUQ drain on 08/17 due to encephalopathy. Repeat CT abd/pel 08/17 shows improving sizes in all abscesses except LUQ one still same size IR attempted to place new drain on 08/18 without success Reconsulted Surgery--> given clinically stable i.e. no fevers, leukocytosis, etc., no need for surgical washout at this time as would be quite risky P.o. intake has improved and previous TPN discontinued when he became fluid overloaded in the setting of renal failure. Poor p.o. intake likely had a lot to do with his renal failure and encephalopathy Appreciate infectious disease recommendations -continue daptomycin, Zosyn, and renally adjusted fluconazole w/ reevaluation for likely extension with CT abd/pel q2-3 weeks-next CT should be around 09/01- 09/08 Switched cefepime to IV Zosyn 08/10 due to concern for cefepime induced neurotoxicity. - Discontinued metronidazole after completing course on 08/10 - Patient was started on Remeron for appetite stimulant and in case depression causing poor appetite -Check CK once weekly (Last done on 08/18) while on daptomycin, follow CBC, BMP -changing wound vac q72h--> wound looks excellent (4) Acute hypoxic respiratory failure: Plan: resolved, was 2/2 volume overload from pleural effusions from DERIK Recent echocardiogram on 06/21 showed normal EF TPN discontinued on 08/11 -still w/ pleural effusions and reports coughing up some sputum-added flutter valve and had improvement -improved nutrition and increasing albumin levels will help with third spacing causing pleural effusions (5) Acute blood loss anemia: Plan: Postoperatively from initial surgery, now anemia from renal failure, chronic disease as well Then with active bleeding from TIJ site and hgb now down to 7.3, sinus tachycardia, worsening encephalopathy--> transfused 1 unit PRBCs with HD on 08/17 and now hgb up to 9.5 B12, folate, iron studies normal TSH mildly elevated and free T4 mildly low-follow follow CBC Received 3 units of blood this admission (6) Hard of hearing: Plan: Supportive care, wears hearing device (7) Ulcerative colitis: Plan: Patient with ulcerative colitis diagnosed by colonoscopy in 06/2023 Now status post subtotal colectomy with only rectal stump remaining No treatment needed at this point but will need continued surveillance for colorectal CA of the rectal stump Will need follow-up with GI as an outpatient Plan Dispo-continued stay Extensive discussion with the longterm system -dialysis needs to be arranged at longterm system--> likely transition to [facility] longterm system which is a more robust medical facility Now that the encephalopathy is greatly improved and he is eating more, need to reconsult PT and mobilize more. He is on his way finally towards discharge likely this week. Will need to contact the longterm and make arrangements to discharge him likely after dialysis on Wednesday Admission and Anticipated Discharge Date Admission Date: June 28, 2023 Subjective Patient doing well today, oriented in no further confusion or hallucinations. We reviewed his entire history in the last 2 months of what happened out as he has questions about how he got so sick. He is not eating much-only had a candy bar and a bite of pizza today. He fears that he will throw up if he eats too much, however when he was confused, he was being fed food by the guards and had no difficulty swallowing or throwing up. Telemetry with sinus tachycardia normal sinus rhythm with rates in the 80s to 100s, PACs Physical Exam Constitutional: + cachectic; no acute distress Eyes: + anicteric sclerae Respiratory: normal respiratory effort, lungs clear to auscultation (with diminished BS at bases) Cardiovascular: RRR, no murmur, no edema Chest (Breasts): Chest: + vascular access device or port (R TIJ cath) Gastrointestinal (Abdomen): Inspection/Auscultation: normal bowel sounds; + abdomen abnormal to inspection (colostomy bag w/ stool, gas; wound vac LLQ) Percussion/Palpation: abdomen soft; abdomen nontender Musculoskeletal: Extremities: extremities normal to inspection Neurologic: moves all extremities and awake; no focal motor deficits and not confused Speech / Cognition: normal speech Motor/Sensory: no tremor Psychiatric: A+Ox3, euthymic affect Results & Data Results & Data Vital Signs (Past 12 Hours) Vital Signs Temp Pulse Pulse Resp BP Pulse Ox O2 Del Method 08/22/23 15:22 37.0 C 103 H 19 149/92 H 97 Room Air 08/22/23 14:02 88 08/22/23 10:16 Room Air 08/22/23 08:07 36.8 C 77 18 144/98 H 99 Room Air 08/22/23 07:00 94 H Laboratory Results BMP, magnesium, LFTs, urine culture all: Reviewed PG Care Time/CCT Total # of Minutes Spent Total Time Spent with Patient: Total time spent is greater than 50% in coordination of care (as documented) at patient's floor/unit and/or counseling patient: Coding Level of Care Code 13511 SUB INP/OBS CARE 2/35MIN Diagnoses Acute kidney injury N17.9 Encephalopathy G93.40 Perforated abdominal viscus R19.8 Acute hypoxic respiratory failure J96.01 Acute blood loss anemia D62 Bilateral hearing loss, unspecified hearing loss type H91.93 Hearing loss type: unspecified Laterality: bilateral Ulcerative pancolitis with abscess K51.014 Digestive disease complication type: with abscess Ulcerative colitis location: ulcerative pancolitis (6) Hard of hearing Hearing loss type: unspecified Laterality: bilateral Qualified Code(s): H91.93 - Unspecified hearing loss, bilateral (7) Ulcerative colitis Digestive disease complication type: with abscess Ulcerative colitis location: ulcerative pancolitis Qualified Code(s): K51.014 - Ulcerative (chronic) pancolitis with abscess
[2023-08-22] MEDS: FLUCONAZOLE 200 MG/100 ML BAG IV SCH (20:14)
[2023-08-22] MEDS: MIRTAZAPINE TAB 15 MG TAB PO SCH (20:17)
[2023-08-23] MEDS: PIPERACILLIN/TAZOBACTAM 4.5 GM in DEXTROSE 5% MINI-B 100 ML IV SCH ×2 (04:50→16:15)
--- NOTE | 2023-08-23 07:36 | Hospitalist Progress Note ---
Date of Service August 23, 2023 Assessment & Plan (1) Acute kidney injury: Plan: First noted 07/25-maybe ATN due to poor po intake and previous sepsis, AIN from meds not likely as no WBCs on UA, could be OSWALDO from CT scans patient got volume overloaded with minimal response to several doses of IV diuretics Femoral vein temporary dialysis catheter placed and started on dialysis on 08/12, 08/13. 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 Femoral line has since been removed -continue HD as per Nephro and will need HD [place] [facility] (2) Encephalopathy: Plan: Acute encephalopathy, probably metabolic from hospital delirium, insomnia, thiamine deficiency/Wernicke's encephalopathy, renal failure, and possibly medication/antibiotic induced. Initial bout of encephalopathy previously resolved and then significantly worsened again with hyperactive delirium the week of 08/13.Was not sleeping well, hallucinating, delusional, had nystagmus No signs of new infection and repeat UA no infection, Ur cx no growth, improved with thiamine and Seroquel-> high dose thiamine on 08/19 and increased Seroquel to 50mg po bid CT abd/pel repeated 08/17 with improving abscesses except LUQ one same. Also with inflammation of bladder c/w cystitis Head CT scan negative and repeated on 08/20-again neg for acute Continue IM Zyprexa bid prn (but has not needed now in a few days) Continue Seroquel 25mg qAM and 50mg qhs--> ECG with mildly prolonged QTc-follow periodically while on diflucan Continue Remeron 15mg hs for improved sleep and appetite Gave IV ativan x 1 for hemodialysis on 08/17 and again 08/19 but would try to avoid further benzos if possible as this seemed to make him worse HD ongoing, antibiotic therapy ongoing Supportive care Received thiamine 500 Mg IV every 8 x 6 doses and converted to 200mg po bid x 1 month through 09/21/23 (3) Perforated abdominal viscus: Plan: Patient with recent diagnosis of Ulcerative pancolitis, and had sessile polyp biopsied along with other biopsies on a colonoscopy during previous admission. Presented with free air, to OR 06/28/23 with subtotal colon resection with rectal stump remaining, and ileostomy. Three areas of perforation were identified, abscess and feculent material seen. Pseudomonas, Staphylococcus aureus, and Enterococcus faecium as well as Mariely albicans isolated. Repeat abdominal CT scan 07/19 shows persistent fluid collections consistent wit h abscess 07/23/2023 shows a leukocytosis hence the drain manipulation Repeat abdominal CT on 08/02 with improving size and multiple abscesses but still one that is large 9 cm- discussed with IR not possible as drain additional larger pocket as loculated other pockets too small Wound vac remains in place over midline incision and this wound is healing nicely Pt pulled out his LUQ drain on 08/17 due to encephalopathy. Repeat CT abd/pel 08/17 shows improving sizes in all abscesses except LUQ one still same size IR attempted to place new drain on 08/18 without success Reconsulted Surgery--> given clinically stable i.e. no fevers, leukocytosis, etc., no need for surgical washout at this time as would be quite risky P.o. intake has improved and previous TPN discontinued when he became fluid over loaded in the setting of renal failure. Poor p.o. intake likely had a lot to do with his renal failure and encephalopathy Appreciate infectious disease recommendations -continue daptomycin, Zosyn, and renally adjusted fluconazole w/ reevaluation for likely extension with CT abd/pel q2-3 weeks-next CT should be around 09/01- 09/08 Switched cefepime to IV Zosyn 08/10 due to concern for cefepime induced neurotoxicity. - Discontinued metronidazole after completing course on 08/10 - Patient was started on Remeron for appetite stimulant and in case depression causing poor appetite -Check CK once weekly (Last done on 08/18) while on daptomycin, -changing wound vac q72h--> wound looks excellent (4) Acute hypoxic respiratory failure: Plan: resolved, was 2/2 volume overload from pleural effusions from DERIK Recent echocardiogram on 06/21 showed normal EF TPN discontinued on 08/11 -still w/ pleural effusions (5) Acute blood loss anemia: Plan: Postoperatively from initial surgery, now anemia from renal failure, chronic disease as well, low but stable Then with active bleeding from TIJ site and hgb now down to 7.3, sinus tachycardia, worsening encephalopathy--> transfused 1 unit PRBCs with HD on 08/17 and now hgb up to 9.5 B12, folate, iron studies normal TSH mildly elevated and free T4 mildly low-follow Received 3 units of blood this admission (6) Hard of hearing: Plan: Supportive care, wears hearing device (7) Ulcerative colitis: Plan: Patient with ulcerative colitis diagnosed by colonoscopy in 06/2023 Now status post subtotal colectomy with only rectal stump remaining No treatment needed at this point but will need continued surveillance for colorectal CA of the rectal stump Will need follow-up with GI as an outpatient Plan Dispo-continued stay anticipate discharge this week Extensive discussion with the [place] [facility] -d[facility] needs to be arranged at [facility]--> [facility] medical [facility] Now that the encephalopathy is greatly improved and he is eating more, need to reconsult PT and mobilize more. He is on his way finally towards discharge likely this week. Will need to contact the [place] [facility] and make arrangements to discharge him likely after dialysis on Wednesday Admission and Anticipated Discharge Date Admission Date: June 28, 2023 Subjective No acute events overnight. Awake and oriented adominal pain is controlled, Appetite remains poor wants some pain meds after eating. ostomy is functioning Physical Exam Physical Exam: His physical exam is little change he is in very little distress his ostomy is functioning well his lungs are clear and heart is regular wound no longer has wound vacc Results & Data Results & Data Vital Signs (Past 12 Hours) Vital Signs Temp Pulse Pulse Resp BP Pulse Ox O2 Del Method 08/23/23 03:45 97.3 F L 85 18 158/88 H 99 Room Air 08/22/23 22:47 90 08/22/23 22:25 97.5 F L 85 18 155/82 H 99 Room Air 08/22/23 20:00 Room Air Laboratory Results reviewed cbc reviewed prp PG Care Time/CCT Total # of Minutes Spent Total Time Spent with Patient: Total time spent is greater than 50% in coordination of care (as documented) at patient's floor/unit and/or counseling patient: Coding Level of Care Code 33262 SUB INP/OBS CARE 2/35MIN Diagnoses Acute kidney injury N17.9 Encephalopathy G93.40 Perforated abdominal viscus R19.8 Acute hypoxic respiratory failure J96.01 Acute blood loss anemia D62 Bilateral hearing loss, unspecified hearing loss type H91.93 Hearing loss type: unspecified Laterality: bilateral Ulcerative pancolitis with abscess K51.014 Digestive disease complication type: with abscess Ulcerative colitis location: ulcerative pancolitis (6) Hard of hearing Hearing loss type: unspecified Laterality: bilateral Qualified Code(s): H91.93 - Unspecified hearing loss, bilateral (7) Ulcerative colitis Digestive disease complication type: with abscess Ulcerative colitis location: ulcerative pancolitis Qualified Code(s): K51.014 - Ulcerative (chronic) pancolitis with abscess
[2023-08-23 07:46] LABS: Albumin Level 2.5 gm/dl (3.4-5.0); BUN Creatinine Ratio 5.3 (10-20); Calcium 8.3 mg/dl (8.6-10.3); Creatinine Clr Calc Pharmacy 11.6 ml/min; Est GFR (African American) 15.2 ml/min; Est GFR (Non-African American) 13.1 ml/min; Phosphorus 4.5 mg/dl (2.5-4.9); Potassium 3.8 mmol/L (3.5-5.1)
[2023-08-23 07:57] LABS: Hematocrit (blood only) 31.6 % (42.0-52.0); Mean Corpuscular Hemoglobin 28.7 pg (25.0-34.0); Mean Corpuscular Hgb Conc 31.6 g/dL (32.0-36.0); Mean Corpuscular Volume 90.5 fL (80.0-100.0); Mean Platelet Volume 9.9 fL (9.4-12.4); Platelet Count 368 K/uL (130-400); RDW Coefficient of Variation 15.9 % (11.5-14.5); RDW Standard Deviation 52.8 fL (36.4-46.3); Red Blood Count 3.49 M/uL (4.70-6.10); White Blood Count 5.89 K/ul (4.8-10.8)
[2023-08-23] MEDS: THIAMINE HCL 100 MG TAB PO SCH ×2 (08:41→20:07)
[2023-08-23] MEDS: amLODIPine BESYLATE 5 MG TAB PO SCH (08:41)
[2023-08-23] MEDS: QUEtiapine FUMARATE 25 MG TABLET PO SCH ×2 (08:41→20:07)
[2023-08-23] MEDS: PANTOprazole 40 MG TAB PO SCH ×2 (08:41→20:07)
--- NOTE | 2023-08-23 12:39 | Nephrology Progress Note ---
Date of Service August 23, 2023 Assessment & Plan (1) Acute kidney injury: Plan: Attributed to ATN. Dependent on HD. No signs of renal recovery. Completed treatment on Wednesday without complications. Next HD will be coordinated for tomorrow. BP and volume status are acceptable. Started HD 08/12/23. TDC placed 08/16/[address] Kamara. Medications are appropriately dosed for kidney function. (2) Intra-abdominal abscess: Plan: Remains on daptomycin, Zosyn, and fluconazole. Medications appropriate for kidney function. CK weekly on dapto. (3) Ileostomy in place: (4) Ulcerative colitis: Admission and Anticipated Discharge Date Admission Date: June 28, 2023 Subjective No acute events overnight. Awake and oriented today. No acute complaints. Appetite remains poor. No chest pains or palpitations. No fevers or chills. Review of Systems Review of Systems: All systems reviewed & are unremarkable except as noted in HPI & below Physical Exam Constitutional: well developed, + thin, + cachectic and + frail appearing; no acute distress Eyes: + anicteric sclerae; no corneal abnormal ity ENMT: Mouth: + dry oral mucous membranes; no oral mucosal abnormality Neck: normal visual inspection and trachea midline Respiratory: normal respiratory effort Auscultation: lungs clear to auscultation bilaterally Cardiovascular: Rate/Rhythm: regular rate Heart Sounds: normal S1 and normal S2 Extremities: no edema Musculoskeletal: Extremities: no cyanosis and no clubbing Skin: normal turgor; no jaundice Neurologic: Motor/Sensory: no tremor and no asterixis Psychiatric: Orientation: alert and oriented x 3 Results & Data Vital Signs (Past 12 Hours) Vital Signs Temp Pulse Resp BP Pulse Ox O2 Del Method 08/23/23 12:18 36.9 C 110 H 18 114/89 98 Room Air 08/23/23 08:33 36.8 C 102 H 18 140/111 H 99 Room Air 08/23/23 03:45 36.3 C L 85 18 158/88 H 99 Room Air Laboratory Results Laboratory Results - last 24 hr 08/23/23 06:26 WBC 5.89 RBC 3.49 L Hgb 10.0 L Hct 31.6 L MCV 90.5 MCH 28.7 MCHC 31.6 L RDW Std Deviation 52.8 H RDW Coeff of Ashley 15.9 H Plt Count 368 MPV 9.9 Sodium 138 Potassium 3.8 Chloride 101 Carbon Dioxide 23 Anion Gap 14 H BUN 25 H Creatinine 4.70 H* D Est Cr Clr Drug Dosing 11.6 Est GFR ( Amer) 15.2 Est GFR (Non-Af Amer) 13.1 BUN/Creatinine Ratio 5.3 L Glucose 87 Calcium 8.3 L Phosphorus 4.5 Albumin 2.5 L PG Care Time/CCT Total # of Minutes Spent Total Time Spent with Patient: Total time spent is greater than 50% in coordination of care (as documented) at patient's floor/unit and/or counseling patient: Coding Level of Care Code 18637 SUB INP/OBS CARE 350MIN Diagnoses Acute kidney injury N17.9 Intra-abdominal abscess K65.[address] Z93.2 Ulcerative pancolitis with abscess K51.014 Ulcerative colitis location: ulcerative pancolitis Digestive disease complication type: with abscess (4) Ulcerative colitis Ulcerative colitis location: ulcerative pancolitis Digestive disease complication type: with abscess Qualified Code(s): K51.014 - Ulcerative (chronic) pancolitis with abscess
[2023-08-23] MEDS: FLUCONAZOLE 200 MG/100 ML BAG IV SCH (20:06)
[2023-08-23] MEDS: DAPTOmycin 600 MG in SYRINGE 0 ML IV SCH (20:06)
[2023-08-23] MEDS: MIRTAZAPINE TAB 15 MG TAB PO SCH (20:08)
[2023-08-24] MEDS: OLANZapine 10 MG/2.1 ML SDV IM PRN (00:51)
[2023-08-24] MEDS: PIPERACILLIN/TAZOBACTAM 4.5 GM in DEXTROSE 5% MINI-B 100 ML IV SCH ×2 (04:33→17:09)
[2023-08-24] MEDS ORDERED: METOPROLOL TARTRATE 25 MG TAB PO ONE (05:49)
[2023-08-24 06:28] LABS: Hematocrit (blood only) 29.1 % (42.0-52.0); Hemoglobin 9.3 g/dl (14.0-18.0)
[2023-08-24 06:46] LABS: Albumin Level 2.6 gm/dl (3.4-5.0); BUN Creatinine Ratio 5.1 (10-20); Calcium 8.4 mg/dl (8.6-10.3); Creatinine Clr Calc Pharmacy 9.4 ml/min; Est GFR (African American) 11.9 ml/min; Est GFR (Non-African American) 10.3 ml/min; Phosphorus 4.5 mg/dl (2.5-4.9); Potassium 3.7 mmol/L (3.5-5.1)
[2023-08-24] MEDS: THIAMINE HCL 100 MG TAB PO SCH ×2 (08:47→20:17)
[2023-08-24] MEDS: PANTOprazole 40 MG TAB PO SCH ×2 (08:47→20:17)
[2023-08-24] MEDS: METOPROLOL TARTRATE 25 MG TAB PO SCH ×2 (08:47→20:14)
[2023-08-24] MEDS: QUEtiapine FUMARATE 25 MG TABLET PO SCH ×2 (08:47→20:13)
[2023-08-24] MEDS: amLODIPine BESYLATE 5 MG TAB PO SCH (08:47)
[2023-08-24] MEDS ORDERED: HALOPERIDOL LACTATE 5 MG/ML 1 ML VIAL IV STA (09:01)
[2023-08-24] MEDS ORDERED: LORazepam 0.5 MG in SYRINGE 0.25 ML IV STA (09:07)
--- NOTE | 2023-08-24 10:11 | Nephrology Progress Note ---
Date of Service August 24, 2023 Assessment & Plan (1) Acute kidney injury: Plan: Attributed to ATN. Dependent on HD. No signs of renal recovery. Orders for HD today entered into the EHR and reviewed with doctor chiropractic. Patient was seen and evaluated prior to and during hemodialysis this AM. BP and volume status are acceptable. Started HD 08/12/23. TDC placed 08/16/[address] Kamara. Medications are appropriately dosed for kidney function. (2) Intra-abdominal abscess: Plan: Remains on daptomycin, Zosyn, and fluconazole. Medications appropriate for kidney function. CK weekly on dapto. (3) Ileostomy in place: (4) Ulcerative colitis: (5) Encephalopathy: Plan: Continued waxing and waning of mental status. Medicated with quetiapine and and Remeron QHS. (6) Hypertension: Plan: BP reasonably controlled with amlodipine 5 mg and metoprolol. Admission and Anticipated Discharge Date Admission Date: June 28, 2023 Subjective Mental status continues to wax and wane. Agitated and confused this AM. Not sleeping overnight. No fevers or chills. Review of Systems Review of Systems: All systems reviewed & are unremarkable except as noted in HPI & below Musculoskeletal: + stiffness and + myalgia Physical Exam Constitutional: well developed, + cachectic and + frail appearing; no acute distress Eyes: + anicteric sclerae; no corneal abnormal ity ENMT: Mouth: + dry oral mucous membranes; no oral mucosal abnormality Neck: normal visual inspection and trachea midline Respiratory: normal respiratory effort Auscultation: lungs clear to auscultation bilaterally Cardiovascular: Rate/Rhythm: regular rate Heart Sounds: normal S1 and normal S2 Extremities: no edema Musculoskeletal: Extremities: no cyanosis and no clubbing Skin: normal turgor; no jaundice Neurologic: Motor/Sensory: no tremor and no asterixis Psychiatric: Orientation: alert and oriented x 3 Results & Data Vital Signs (Past 12 Hours) Vital Signs Temp Pulse Resp BP Pulse Ox O2 Del Method 08/24/23 08:17 36.8 C 93 H 20 154/99 H 99 Room Air 08/24/23 04:08 36.7 C 123 H 18 163/108 H 94 Room Air 08/23/23 23:32 36.4 C L 105 H 18 141/93 H 97 Room Air Laboratory Results Laboratory Results - last 24 hr 08/24/23 05:53 Hgb 9.3 L Hct 29.1 L Sodium 137 Potassium 3.7 Chloride 102 Carbon Dioxide 23 Anion Gap 12 H BUN 29 H Creatinine 5.74 H* D Est Cr Clr Drug Dosing 9.4 Est GFR ( Amer) 11.9 Est GFR (Non-Af Amer) 10.3 BUN/Creatinine Ratio 5.1 L Glucose 104 H Calcium 8.4 L Phosphorus 4.5 Albumin 2.6 L PG Care Time/CCT Total # of Minutes Spent Total Time Spent with Patient: Total time spent is greater than 50% in coordination of care (as documented) at patient's floor/unit and/or counseling patient: Coding Level of Care Code 98322 SUB INP/OBS CARE 350MIN Diagnoses Acute kidney injury N17.9 Intra-abdominal abscess K65.[address] Z93.2 Ulcerative pancolitis with abscess K51.014 Ulcerative colitis location: ulcerative pancolitis Digestive disease complication type: with abscess Encephalopathy G93.40 Hypertension I10 (4) Ulcerative colitis Ulcerative colitis location: ulcerative pancolitis Digestive disease complication type: with abscess Qualified Code(s): K51.014 - Ulcerative (chronic) pancolitis with abscess
--- NOTE | 2023-08-24 15:08 | Hospitalist Progress Note ---
Date of Service August 24, 2023 Assessment & Plan (1) Acute kidney injury: Plan: First noted 07/25-maybe ATN due to poor po intake and previous sepsis, AIN from meds not likely as no WBCs on UA, could be OSWALDO from CT scans patient got volume overloaded with minimal response to several doses of IV diuretics Femoral vein temporary dialysis catheter placed and started on dialysis on 08/12, 08/13. continues on HD TThSat Correspondence Clerk consult continuing -TIJ cath placed 08/16, had bleeding afterwards which is now stopped. Femoral line has since been removed -continue HD as per Nephro and will need HD set up at care home, did a peer to peer discussion with Dr Friedman (2) Encephalopathy: Plan: Acute encephalopathy, probably metabolic from hospital delirium, insomnia, thiamine deficiency/Wernicke's encephalopathy, renal failure, and possibly medication/antibiotic induced. Initial bout of encephalopathy previously resolved and then significantly worsened again with hyperactive delirium the week of 08/13.Was not sleeping well, hallucinating, delusional, had nystagmus No signs of new infection and repeat UA no infection, Ur cx no growth, improved with thiamine and Seroquel-> high dose thiamine on 08/19 and increased Seroquel to 50mg po bid CT abd/pel repeated 08/17 with improving abscesses except LUQ one same. Also with inflammation of bladder c/w cystitis Head CT scan negative and repeated on 08/20-again neg for acute Continue IM Zyprexa bid prn (but has not needed now in a few days) Continue Seroquel 25mg qAM and 50mg qhs--> ECG with mildly prolonged QTc-follow periodically while on diflucan Continue Remeron 15mg hs for improved sleep and appetite Gave IV ativan x 1 for hemodialysis on 08/17 and again 08/19 but would try to avoid further benzos if possible as this seemed to make him worse HD ongoing, antibiotic therapy ongoing Supportive care Received thiamine 500 Mg IV every 8 x 6 doses and converted to 200mg po bid x 1 month through 09/21/23 delirium continues intermittently using (3) Perforated abdominal viscus: Plan: Patient with recent diagnosis of Ulcerative pancolitis, and had sessile polyp biopsied along with other biopsies on a colonoscopy during previous admission. Presented with free air, to OR 06/28/23 with subtotal colon resection with rectal stump remaining, and ileostomy. Three areas of perforation were identified, abscess and feculent material seen. Pseudomonas, Staphylococcus aureus, and Enterococcus faecium as well as Mariely albicans isolated. Repeat abdominal CT scan 07/19 shows persistent fluid collections consistent with abscess 07/23/2023 shows a leukocytosis hence the drain manipulation Repeat abdominal CT on 08/02 with improving size and multiple abscesses but still one that is large 9 cm- discussed with IR not possible as drain additional larger pocket as loculated other pockets too small Wound vac remains in place over midline incision and this wound is healing nicely Pt pulled out his LUQ drain on 08/17 due to encephalopathy. Repeat CT abd/pel 08/17 shows improving sizes in all abscesses except LUQ one still same size IR attempted to place new drain on 08/18 without success Reconsulted Surgery--> given clinically stable i.e. no fevers, leukocytosis, etc., no need for surgical washout at this time as would be quite risky P.o. intake has improved and previous TPN discontinued when he became fluid overloaded in the setting of renal failure. Poor p.o. intake likely had a lot to do with his renal failure and en cephalopathy Appreciate infectious disease recommendations -continue daptomycin, Zosyn, and renally adjusted fluconazole w/ reevaluation for likely extension with CT abd/pel q2-3 weeks-next CT should be around 09/01- 09/08 Switched cefepime to IV Zosyn 08/10 due to concern for cefepime induced neurotoxicity. - Discontinued metronidazole after completing course on 08/10 - Patient was started on Remeron for appetite stimulant and in case depression causing poor appetite -Check CK once weekly (Last done on 08/18) while on daptomycin, -changing wound vac q72h--> wound looks excellent (4) Acute hypoxic respiratory failure: Plan: resolved, was 2/2 volume overload from pleural effusions from DERIK Recent echocardiogram on 06/21 showed normal EF TPN discontinued on 08/11 -still w/ pleural effusions (5) Acute blood loss anemia: Plan: Postoperatively from initial surgery, now anemia from renal failure, chronic disease as well, low but stable Then with active bleeding from TIJ site and hgb now down to 7.3, sinus tachycardia, worsening encephalopathy--> transfused 1 unit PRBCs with HD on 08/17 and now hgb up to 9.5 B12, folate, iron studies normal TSH mildly elevated and free T4 mildly low-follow Received 3 units of blood this admission (6) Hard of hearing: Plan: Supportive care, wears hearing device (7) Ulcerative colitis: Plan: Patient with ulcerative colitis diagnosed by colonoscopy in 06/2023 Now status post subtotal colectomy with only rectal stump remaining No treatment needed at this point but will need continued surveillance for colorectal CA of the rectal stump Will need follow-up with GI as an outpatient Plan Dispo-continued stay anticipate discharge this week Extensive discussion with the care home system -dialysis needs to be arranged at care home system--> likely transition to [facility] system which is a more robust medical facility, however with significant weight loss and deleerium will have further discussion Admission and Anticipated Discharge Date Admission Date: June 28, 2023 Subjective Mental status continues to wax and wane. Agitated and confused this AM. Not sleeping overnight. No fevers or chills. Physical Exam Physical Exam: His physical exam is little change he is in very little distress his ostomy is functioning well his lungs are clear and heart is regular wound no longer has wound vacc he is with delirium, and needed haldol Results & Data Results & Data Vital Signs (Past 12 Hours) Vital Signs Temp Pulse Pulse Resp BP BP Pulse Ox 08/24/23 12:52 97.7 F 112 H 126/86 08/24/23 12:30 51 L 102/81 08/24/23 12:20 62 130/90 08/24/23 12:00 67 241/124 H 08/24/23 11:30 71 136/82 08/24/23 11:00 103 H 132/80 08/24/23 10:30 98 H 115/83 08/24/23 10:00 103 H 127/90 08/24/23 09:56 94 H 136/89 08/24/23 09:50 97.5 F L 94 H 08/24/23 08:17 98.2 F 93 H 20 154/99 H 99 08/24/23 04:08 98.1 F 123 H 18 163/108 H 94 O2 Del Method 08/24/23 12:52 08/24/23 12:30 08/24/23 12:20 08/24/23 12:00 08/24/23 11:30 08/24/23 11:00 08/24/23 10:30 08/24/23 10:00 08/24/23 09:56 08/24/23 09:50 08/24/23 08:17 Room Air 08/24/23 04:08 Room Air Laboratory Results review hgb review chemistry PG Care Time/CCT Total # of Minutes Spent Total Time Spent with Patient: Total time spent is greater than 50% in coordination of care (as documented) at patient's floor/unit and/or counseling patient: Coding Level of Care Code 64199 SUB INP/OBS CARE 2/35MIN Diagnoses Acute kidney injury N17.9 Encephalopathy G93.40 Perforated abdominal viscus R19.8 Acute hypoxic respiratory failure J96.01 Acute blood loss anemia D62 Bilateral hearing loss, unspecified hearing loss type H91.93 Hearing loss type: unspecified Laterality: bilateral Ulcerative pancolitis with abscess K51.014 Ulcerative colitis location: ulcerative pancolitis Digestive disease complication type: with abscess (6) Hard of hearing Hearing loss type: unspecified Laterality: bilateral Qualified Code(s): H91.93 - Unspecified hearing loss, bilateral (7) Ulcerative colitis Ulcerative colitis location: ulcerative pancolitis Digestive disease complication type: with abscess Qualified Code(s): K51.014 - Ulcerative (chronic) pancolitis with abscess
[2023-08-24] MEDS: FLUCONAZOLE 200 MG/100 ML BAG IV SCH (20:16)
[2023-08-24] MEDS: LORazepam 1 MG TAB PO PRN (20:33)
[2023-08-25] MEDS: PIPERACILLIN/TAZOBACTAM 4.5 GM in DEXTROSE 5% MINI-B 100 ML IV SCH ×2 (03:43→15:56)
[2023-08-25 07:46] LABS: Hematocrit (blood only) 28.3 % (42.0-52.0); Mean Corpuscular Hemoglobin 28.8 pg (25.0-34.0); Mean Corpuscular Hgb Conc 31.8 g/dL (32.0-36.0); Mean Corpuscular Volume 90.4 fL (80.0-100.0); Mean Platelet Volume 9.9 fL (9.4-12.4); Platelet Count 349 K/uL (130-400); RDW Coefficient of Variation 15.9 % (11.5-14.5); RDW Standard Deviation 53.3 fL (36.4-46.3); Red Blood Count 3.13 M/uL (4.70-6.10); White Blood Count 5.04 K/ul (4.8-10.8)
[2023-08-25 08:00] LABS: Albumin Globulin Ratio 0.7 (0.9-2); Albumin Level 2.4 gm/dl (3.4-5.0); BUN Creatinine Ratio 4.1 (10-20); Bilirubin,Total 0.5 mg/dl (0.2-1.0); C Reactive Protein 5.89 mg/dl (0-0.5); Calcium 8.2 mg/dl (8.6-10.3); Creatinine Clr Calc Pharmacy 11.7 ml/min; Est GFR (African American) 17.9 ml/min; Est GFR (Non-African American) 15.4 ml/min; Globulin 3.3 gm/dl (2.5-4.0); Total Protein 5.7 gm/dl (6.0-8.3)
--- NOTE | 2023-08-25 10:36 | Nephrology Progress Note ---
Date of Service August 25, 2023 Assessment & Plan (1) Acute kidney injury: Plan: Attributed to ATN. Dependent on HD. No signs of renal recovery. Completed partial treatment yesterday with adequate clearance and UF. No additional dialysis planned for today. BP and volume status are acceptable. Started HD 08/12/23. TDC placed 08/16/[address] Kamara. Medications are appropriately dosed for kidney function. (2) Intra-abdominal abscess: Plan: Remains on daptomycin, Zosyn, and fluconazole. Medications appropriate for kidney function. CK weekly on dapto. (3) Encephalopathy: Plan: Continued waxing and waning of mental status. Medicated with quetiapine and and Remeron QHS. Thiamine is being provided. Unfortunately, no meaningful improvement. (4) Hypertension: Plan: BP reasonably controlled with amlodipine 5 mg and metoprolol. Admission and Anticipated Discharge Date Admission Date: June 28, 2023 Subjective Sleeping soundly this AM. Guards at the bedside. Confused when awake. No meaningful conversation. No discomfort or distress. HD was stopped ~50 minutes early yesterday due to agitation. Adequate clearance with treatment. Appetite remains very poor. No fevers or chills. Review of Systems Review of Systems: Unobtainable due to reduced consciousness Physical Exam Constitutional: + cachectic and + frail appearing; no ac [place] distress Eyes: + anicteric sclerae; no corneal abnormal ity ENMT: Mouth: + dry oral mucous membranes; no oral mucosal abnormality Neck: normal visual inspection and trachea midline Respiratory: normal respiratory effort Auscultation: lungs clear to auscultation bilaterally Cardiovascular: Rate/Rhythm: regular rate Heart Sounds: normal S1 and normal S2 Extremities: no edema Musculoskeletal: Extremities: no cyanosis and no clubbing Skin: + turgor decreased; no jaundice Neurologic: Motor/Sensory: no tremor and no asterixis Psychiatric: Orientation: alert; + not oriented x 3 Results & Data Vital Signs (Past 12 Hours) Vital Signs Temp Pulse Pulse Pulse Resp BP Pulse Ox 08/25/23 08:19 36.4 C L 90 16 139/93 100 08/25/23 08:14 110 H 08/25/23 04:00 36.5 C 93 H 20 129/89 93 08/25/23 02:30 O2 Del Method 08/25/23 08:19 Room Air 08/25/23 08:14 12/13/23 04:00 Room Air 08/25/23 02:30 Room Air Laboratory Results Laboratory Results - last 24 hr 08/25/23 07:28 WBC 5.04 RBC 3.13 L Hgb 9.0 L Hct 28.3 L MCV 90.4 MCH 28.8 MCHC 31.8 L RDW Std Deviation 53.3 H RDW Coeff of Ashley 15.9 H Plt Count 349 MPV 9.9 Sodium 139 Potassium 4.0 Chloride 106 Carbon Dioxide 23 Anion Gap 10 BUN 17 Creatinine 4.10 H D Est Cr Clr Drug Dosing 11.7 Est GFR ( Amer) 17.9 Est GFR (Non-Af Amer) 15.4 BUN/Creatinine Ratio 4.1 L Glucose 80 Calcium 8.2 L Total Bilirubin 0.5 AST 27 ALT 18 Alkaline Phosphatase 210 H Ammonia 22.0 C-Reactive Protein 5.89 H Total Protein 5.7 L Albumin 2.4 L Globulin 3.3 Albumin/Globulin Ratio 0.7 L PG Care Time/CCT Total # of Minutes Spent Total Time Spent with Patient: Total time spent is greater than 50% in coordination of care (as documented) at patient's floor/unit and/or counseling patient: Coding Level of Care Code 11091 SUB INP/OBS CARE 3/50MIN Diagnoses Acute kidney injury N17.9 Intra-abdominal abscess K65.1 Encephalopathy G93.40 Hypertension I10
[2023-08-25] MEDS: METOPROLOL TARTRATE 25 MG TAB PO SCH ×2 (10:48→20:01)
[2023-08-25] MEDS: PANTOprazole 40 MG TAB PO SCH ×2 (10:48→20:01)
[2023-08-25] MEDS: QUEtiapine FUMARATE 25 MG TABLET PO SCH ×2 (10:49→20:01)
[2023-08-25] MEDS: THIAMINE HCL 100 MG TAB PO SCH ×2 (10:49→20:01)
[2023-08-25] MEDS ORDERED: TPN/PPN CONSULT PHARMACY PRN (12:55)
--- NOTE | 2023-08-25 13:36 | Pharmacy Report ---
Pharmacy Initial PN Consult Nt - Date of Service August 25, 2023 - Scope Pharmacy has been consulted on this date to manage parenteral nutrition orders and order appropriate labs. As part of the Nutrition Support Team Guidelines, pharmacy will work in conjunction with dietary when determining the patients caloric needs. - Subjective * The patient is a 53 year old Male admitted on 06/28/23 for colonic perforation, peritonitis. Patient is s/p subtotal colectomy and ileostomy. * Patient had received parenteral nutrition earlier this admission however this was d/c'd secondary to volume overload on 08/11 * Patient is to resume parenteral nutrition today for ongoing poor PO intake, likely due to encephalopathy. I did reach out to Nephrology to confirm TPN providing ~800-900mL volume would be acceptable - this was okayed. * Pertinent PMHx: * Ulcerative Colitis * Currently requiring hemodialysis - Objective Vascular Access: * Patient currently has a central line (PICC) Height & Weight (Last Documented) Height 5 ft 9 in Weight 40 kg Diet Order(s) 08/18/23 Lunch Diet Intake & Ouput (24hrs) 08/24/23 08/25/23 08/26/23 06:59 06:59 06:59 Intake Total 750 / 750 600 / 600 100 / 100 Output Total 500 / 500 250 / 250 Balance 250 / 250 350 / 350 100 / 100 Selected Laboratory Results 08/25/23 07:28 Sodium 139 Potassium 4.0 Chloride 106 Carbon Dioxide 23 Anion Gap 10 BUN 17 Creatinine 4.10 H D Est GFR ( Amer) 17.9 Est GFR (Non-Af Amer) 15.4 BUN/Creatinine Ratio 4.1 L Glucose 80 Calcium 8.2 L Total Bilirubin 0.5 AST 27 ALT 18 Alkaline Phosphatase 210 H - Assessment & Plan Assessment: * Appreciate dietitians recommendations for macronutrients. Plan: * For Day #1 of TPN administration, the following will be ordered: * Macronutrients: * Amino Acids: 58 grams/day * Dextrose: 101 grams/day * Lipids: 0 grams/day * Micronutrients: * TPN electrolytes: 0 mL/day - Contains 35 mEq Na, 20 mEq K, 4.5 mEq Ca, 5 mEq Mg, 35 mEq Cl, 29.5 mEq Acetate per 20 mL * Sodium phosphate: 0 mMol/day * Sodium chloride: 35 mEq/day * Sodium acetate: 25 mEq/day * Potassium phosphate: 6 mMol/day * Potassium chloride: 10 mEq/day * Potassium acetate: 0 mEq/day * Magnesium sulfate: 0 mEq/day * Calcium gluconate: 0 mEq/day * Multivitamins: 10 mL/day * Trace elements: 1 mL/day * Thiamine: 100 mg/day * Folic Acid: 1 mg/day * Total volume of 765.7 mL will be infused over 24 hours and will provide 573.1 kcal/day * Labs will be ordered per PN protocol. * Pharmacy will follow and adjust PN orders on a daily basis. Thank you!
[2023-08-25] MEDS: [UNRECOGNIZED DRUG - OTHER] IV SCH (15:55)
[2023-08-25] MEDS: CENTRAL TPN IV SCH (15:55)
[2023-08-25] MEDS ORDERED: DEXTROSE 10% 1,000 ML IV PRN (16:00)
[2023-08-25 16:02] LABS: Hematocrit (blood only) 31.8 % (42.0-52.0); Hemoglobin 10.4 g/dl (14.0-18.0); Mean Corpuscular Hemoglobin 29.1 pg (25.0-34.0); Mean Corpuscular Hgb Conc 32.7 g/dL (32.0-36.0); Mean Corpuscular Volume 89.1 fL (80.0-100.0); Mean Platelet Volume 9.7 fL (9.4-12.4); Platelet Count 406 K/uL (130-400); RDW Coefficient of Variation 16.2 % (11.5-14.5); RDW Standard Deviation 53.1 fL (36.4-46.3); Red Blood Count 3.57 M/uL (4.70-6.10); White Blood Count 4.84 K/ul (4.8-10.8)
[2023-08-25 16:22] LABS: BUN Creatinine Ratio 4.2 (10-20); Bilirubin,Total 0.4 mg/dl (0.2-1.0); Calcium 8.3 mg/dl (8.6-10.3); Creatinine Clr Calc Pharmacy 10.6 ml/min; Est GFR (African American) 15.9 ml/min; Est GFR (Non-African American) 13.7 ml/min; Magnesium 1.9 mg/dl (1.7-2.4); Phosphorus 4.9 mg/dl (2.5-4.9); Potassium 4.2 mmol/L (3.5-5.1)
--- NOTE | 2023-08-25 18:34 | Hospitalist Progress Note ---
Date of Service August 25, 2023 Assessment & Plan (1) Acute kidney injury: Plan: First noted 07/25-maybe ATN due to poor po intake and previous sepsis, AIN from meds not likely as no WBCs on UA, could be OSWALDO from CT scans patient got volume overloaded with minimal response to several doses of IV diuretics Femoral vein temporary dialysis catheter placed and started on dialysis on 08/12, 08/13. continues on HD TThSat Mop Man consult continuing -TIJ cath placed 08/16, had bleeding afterwards which is now stopped. Femoral line has since been removed -continue HD as per Nephro and will need HD set up at long-term, did a peer to peer discussion with Dr Friedman (2) Perforated abdominal viscus: Plan: Patient with recent diagnosis of Ulcerative pancolitis, and had sessile polyp biopsied along with other biopsies on a colonoscopy during previous admission. Presented with free air, to OR 06/28/23 with subtotal colon resection with rectal stump remaining, and ileostomy. Three areas of perforation were identified, abscess and feculent material seen. Pseudomonas, Staphylococcus aureus, and Enterococcus faecium as well as Mariely albicans isolated. Repeat abdominal CT scan 07/19 shows persistent fluid collections consistent with abscess 07/23/2023 shows a leukocytosis hence the drain manipulation Repeat abdominal CT on 08/02 with improving size and multiple abscesses but still one that is large 9 cm- discussed with IR not possible as drain additional larger pocket as loculated other pockets too small Pt pulled out his LUQ drain on 08/17 due to encephalopathy. Repeat CT abd/pel 08/17 shows Persistent but not worsening abscesses IR attempted to place new drain on 08/18 without success Appreciate infectious disease recommendations -continue daptomycin, Zosyn, and renally adjusted fluconazole w/ reevaluation for likely extension with CT abd/pel q2-3 weeks-next CT should be around 09/01- 09/08 Switched cefepime to IV Zosyn 08/10 due to concern for cefepime induced neurotoxicity. - Discontinued metronidazole after completing course on 08/10 - Patient was started on Remeron for appetite stimulant and in case depression causing poor appetite -Check CK once weekly while on daptomycin, -changing wound vac q72h--> wound looks excellent biggest issue revolves around poor oral intake 50 pound weight loss while in the hospital and inability to axis fluid collection in his abdomen. Although stable hemodynamically and leukocytosis is not elevated the concern would be that this is not become sterile yet. Trying to secure appropriate feeding is difficult as the patient is not easy to access via a endoscopic place G-tube or surgical place J-tube due to recent abdominal surgical events. Considerations of tertiary transfer now that the long-term system hospital transfer it will be less likely. At the time of this dictation we cannot reach out yet to tertiary care center as further discussions are being had (3) Encephalopathy: Plan: Acute encephalopathy, probably metabolic from hospital delirium, insomnia, thiamine deficiency/Wernicke's encephalopathy, renal failure, and possibly medication/antibiotic induced. Initial bout of encephalopathy previously resolved and then significantly worsened again with hyperactive delirium the week of 08/13.Was not sleeping well, hallucinating, delusional, had nystagmus No signs of new infection and repeat UA no infection, Ur cx no growth, improved with thiamine and Seroquel-> high dose thiamine on 08/19 and increased Seroquel to 50mg po bid CT abd/pel repeated 08/17 with improving abscesses except LUQ one same. Also with inflammation of bladder c/w cystitis Head CT scan negative and repeated on 08/20-again neg for acute Continue IM Zyprexa bid prn (but has not needed now in a few days) Continue Seroquel 25mg qAM and 50mg qhs--> ECG with mildly prolonged QTc-follow periodically while on diflucan Continue Remeron 15mg hs for improved sleep and appetite Gave IV ativan x 1 for hemodialysis on 08/17 and again 08/19 but would try to avoid further benzos if possible as this seemed to make him worse HD ongoing, antibiotic therapy ongoing Supportive care Received thiamine 500 Mg IV every 8 x 6 doses and converted to 200mg po bid x 1 month through 09/21/23 delirium continues intermittently using as needed Ativan and Haldol (4) Acute hypoxic respiratory failure: Plan: resolved, was 2/2 volume overload from pleural effusions from DERIK Recent echocardiogram on 06/21 showed normal EF TPN restarted on 08/24/1308/25/2023 due to 50 pound weight loss during the hospital stay. -still w/ pleural effusions (5) Acute blood loss anemia: Plan: Postoperatively from initial surgery, now anemia from renal failure, chronic disease as well, low but stable Then with active bleeding from TIJ site and hgb now down to 7.3, sinus tachycardia, worsening encephalopathy--> transfused 1 unit PRBCs with HD on 08/17 and now hgb up to 9.5 B12, folate, iron studies normal TSH mildly elevated and free T4 mildly low-follow Received 3 units of blood this admission (6) Hard of hearing: Plan: Supportive care, wears hearing device (7) Ulcerative colitis: Plan: Patient with ulcerative colitis diagnosed by colonoscopy in 06/2023 Now status post subtotal colectomy with only rectal stump remaining No treatment needed at this point but will need continued surveillance for colorectal CA of the rectal stump Will need follow-up with GI as an outpatient Plan Dispo-continued stay anticipate discharge this week Extensive discussion with the long-term system -dialysis needs to be arranged at long-term system--> [id number] discussion with physicians at [facility] system which is a more about custodial type convalescent facility than a robust medical facility, they are reluctant to take the patient in transfer. Admission and Anticipated Discharge Date Admission Date: June 28, 2023 Subjective Sleeping soundly this AM. Guards at the bedside. Confused when awake. No meaningful conversation. HD was 08/24/23 due to agitation. Adequate clearance with treatment. Appetite remains very poor. No fevers or chills. Pt is confused disposition is in question Physical Exam Physical Exam: His physical exam is little change he is in very little distress his ostomy is functioning well his lungs are clear and heart is regular wound no longer has wound vacc he is with delirium, and needed haldol Results & Data Results & Data Vital Signs (Past 12 Hours) Vital Signs Temp Pulse Pulse Resp BP Pulse Ox O2 Del Method 08/25/23 15:39 96 H 08/25/23 15:29 97.9 F 89 17 140/97 100 Room Air 08/25/23 11:53 97.5 F L 82 17 144/96 H 99 Room Air 08/25/23 08:19 97.5 F L 90 16 139/93 100 Room Air 08/25/23 08:14 110 H Laboratory Results reviewed CBC reviewed chemistry PG Care Time/CCT Total # of Minutes Spent Total Time Spent with Patient: Total time spent is greater than 50% in coordination of care (as documented) at patient's floor/unit and/or counseling patient: Coding Level of Care Code 56446 SUB INP/OBS CARE 2/35MIN Diagnoses Acute kidney injury N17.9 Perforated abdominal viscus R19.8 Encephalopathy G93.40 Acute hypoxic respiratory failure J96.01 Acute blood loss anemia D62 Bilateral hearing loss, unspecified hearing loss type H91.93 Hearing loss type: unspecified Laterality: bilateral Ulcerative pancolitis with abscess K51.014 Ulcerative colitis location: ulcerative pancolitis Digestive disease complication type: with abscess (6) Hard of hearing Hearing loss type: unspecified Laterality: bilateral Qualified Code(s): H91.93 - Unspecified hearing loss, bilateral (7) Ulcerative colitis Ulcerative colitis location: ulcerative pancolitis Digestive disease complication type: with abscess Qualified Code(s): K51.014 - Ulcerative (chronic) pancolitis with abscess
[2023-08-25] MEDS: FLUCONAZOLE 200 MG/100 ML BAG IV SCH (20:00)
[2023-08-25] MEDS: DAPTOmycin 600 MG in SYRINGE 0 ML IV SCH (20:00)
[2023-08-26] MEDS: PIPERACILLIN/TAZOBACTAM 4.5 GM in DEXTROSE 5% MINI-B 100 ML IV SCH ×2 (05:31→15:32)
[2023-08-26 07:12] LABS: BUN Creatinine Ratio 6.1 (10-20); Calcium 8.3 mg/dl (8.6-10.3); Creatinine Clr Calc Pharmacy 9.8 ml/min; Est GFR (African American) 14.4 ml/min; Est GFR (Non-African American) 12.4 ml/min; Magnesium 1.8 mg/dl (1.7-2.4); Phosphorus 4.9 mg/dl (2.5-4.9); Potassium 3.9 mmol/L (3.5-5.1)
[2023-08-26] MEDS: THIAMINE HCL 100 MG TAB PO SCH ×2 (07:52→21:58)
[2023-08-26] MEDS: PANTOprazole 40 MG TAB PO SCH ×2 (07:52→21:58)
[2023-08-26] MEDS: QUEtiapine FUMARATE 25 MG TABLET PO SCH ×2 (07:54→21:58)
[2023-08-26] MEDS: METOPROLOL TARTRATE 25 MG TAB PO SCH ×2 (09:57→21:58)
[2023-08-26] MEDS ORDERED: ALTEPLASE, RECOMBINANT 1 MG/ML 2ML VIAL INSTIL ONE ×2 (11:07)
[2023-08-26] MEDS ORDERED: SODIUM CHLORIDE 0.9% 1,000 ML IV PRN (11:07)
--- NOTE | 2023-08-26 12:16 | Nephrology Progress Note ---
Date of Service August 26, 2023 Assessment & Plan (1) Acute kidney injury: Plan: Attributed to ATN. Dependent on HD. No signs of renal recovery. Orders for HD today entered into the EHR and reviewed with RN. Unfortunately access pressures are elevated. Pulling and returning to catheter difficult. Qb low but acceptable. Will attempt tPa dwell following HD. BP and volume status are acceptable. Started HD 08/12/23. TDC placed 08/16/[address] Kamara. Medications are appropriately dosed for kidney function. (2) Intra-abdominal abscess: Plan: Remains on daptomycin, Zosyn, and fluconazole. Medications appropriate for kidney function. CK weekly on dapto. TPN restarted today. Orders reviewed with pharmacy. (3) Hypertension: Plan: BP reasonably controlled with amlodipine 5 mg and metoprolol. Admission and Anticipated Discharge Date Admission Date: June 28, 2023 Subjective No acute events overnight. Adama was seen and evaluated prior to and during hemodialysis. He is awake and conversational this morning. No complaints. Denies pain. Tolerating HD well. Poor flow with TDC. Review of Systems Review of Systems: All systems reviewed & are unremarkable except as noted in HPI & below Physical Exam Constitutional: + cachectic and + frail appearing; no ac [place] distress Eyes: + anicteric sclerae; no corneal abnormal ity ENMT: Mouth: + dry oral mucous membranes; no oral mucosal abnormality Neck: normal visual inspection and trachea midline IJ TDC with clean exit site Respiratory: normal respiratory effort Auscultation: lungs clear to auscultation bilaterally Cardiovascular: Rate/Rhythm: regular rate Heart Sounds: normal S1 and normal S2 Extremities: no edema Musculoskeletal: Extremities: no cyanosis and no clubbing Skin: normal turgor and + turgor decreased; no jaundice Neurologic: Motor/Sensory: no tremor and no asterixis Psychiatric: Orientation: alert; + not oriented x 3 Results & Data Vital Signs (Past 12 Hours) Vital Signs Temp Pulse Pulse Resp BP BP Pulse Ox 08/26/23 11:45 92 H 130/93 08/26/23 11:30 95 H 137/92 08/26/23 11:00 80 124/41 L 08/26/23 10:30 86 132/96 08/26/23 10:00 91 H 115/89 08/26/23 09:57 86 08/26/23 09:30 102 H 107/80 08/26/23 09:01 91 H 123/81 08/26/23 08:55 36.7 C 98 H 08/26/23 07:05 36.5 C 89 20 132/87 95 08/26/23 03:31 36.8 C 90 18 138/82 94 O2 Del Method 08/26/23 11:45 08/26/23 11:30 08/26/23 11:00 08/26/23 10:30 08/26/23 10:00 08/26/23 09:57 08/26/23 09:30 08/26/23 09:01 08/26/23 08:55 08/26/23 07:05 Room Air 08/26/23 03:31 Room Air Laboratory Results Laboratory Results - last 24 hr 08/25/23 08/25/23 08/25/23 15:47 16:01 16:03 WBC 4.84 RBC 3.57 L Hgb 10.4 L Hct 31.8 L MCV 89.1 MCH 29.1 MCHC 32.7 RDW Std Deviation 53.1 H RDW Coeff of Ashley 16.2 H Plt Count 406 H MPV 9.7 Sodium 138 Potassium 4.2 Chloride 104 Carbon Dioxide 20 L Anion Gap 14 H BUN 19 Creatinine 4.52 H* D Est Cr Clr Drug Dosing 10.6 Est GFR ( Amer) 15.9 Est GFR (Non-Af Amer) 13.7 BUN/Creatinine Ratio 4.2 L Glucose 73 POC Glucose 67 L* 69 L* Calcium 8.3 L Phosphorus 4.9 Magnesium 1.9 Total Bilirubin 0.4 AST 26 Alkaline Phosphatase 246 H Total Creatine Kinase Triglycerides 228 H 08/25/23 08/26/23 08/26/23 16:21 05:34 05:52 WBC RBC Hgb Hct MCV MCH MCHC RDW Std Deviation RDW Coeff of Ashley Plt Count MPV Sodium 138 Potassium 3.9 Chloride 105 Carbon Dioxide 22 Anion Gap 11 BUN 30 H Creatinine 4.90 H* D Est Cr Clr Drug Dosing 9.8 Est GFR ( Amer) 14.4 Est GFR (Non-Af Amer) 12.4 BUN/Creatinine Ratio 6.1 L Glucose 137 H POC Glucose 77 151 H Calcium 8.3 L Phosphorus 4.9 Magnesium 1.8 Total Bilirubin AST Alkaline Phosphatase Total Creatine Kinase 73 Triglycerides PG Care Time/CCT Total # of Minutes Spent Total Time Spent with Patient: Total time spent is greater than 50% in coordination of care (as documented) at patient's floor/unit and/or counseling patient: Coding Level of Care Code 15306 SUB INP/OBS CARE 3/50MIN Diagnoses Acute kidney injury N17.9 Intra-abdominal abscess K65.1 Hypertension I10
[2023-08-26] MEDS ORDERED: CENTRAL TPN IV SCH (16:00)
[2023-08-26] MEDS ORDERED: CLINOLIPID 20% IV FAT EMULSION 200 ML IV SCH (16:00)
[2023-08-26] MEDS ORDERED: [UNRECOGNIZED DRUG - OTHER] IV SCH (16:00)
[2023-08-26] MEDS: CENTRAL TPN IV SCH (16:01)
[2023-08-26] MEDS: [UNRECOGNIZED DRUG - OTHER] IV SCH (16:01)
--- NOTE | 2023-08-26 20:35 | Hospitalist Progress Note ---
Date of Service August 26, 2023 Assessment & Plan (1) Acute kidney injury: Plan: First noted 07/25-maybe ATN due to poor po intake and previous sepsis, AIN from meds not likely as no WBCs on UA, could be OSWADLO from CT scans patient got volume overloaded with minimal response to several doses of IV diuretics Femoral vein temporary dialysis catheter placed and started on dialysis on 08/12, 08/13. continues on HD [employer] consult continuing -TIJ cath placed 08/16, had bleeding afterwards which is now stopped. Femoral line has since been removed -continue HD as per Nephro and will need HD set up at group home, did a peer to peer discussion with Dr Friedman (2) Perforated abdominal viscus: Plan: Patient with recent diagnosis of Ulcerative pancolitis, and had sessile polyp biopsied along with other biopsies on a colonoscopy during previous admission. Presented with free air, to OR 06/28/23 with subtotal colon resection with rectal stump remaining, and ileostomy. Three areas of perforation were identified, abscess and feculent material seen. Pseudomonas, Staphylococcus aureus, and Enterococcus faecium as well as Mariely albicans isolated. Repeat abdominal CT scan 07/19 shows persistent fluid collections consistent with abscess 07/23/2023 shows a leukocytosis hence the drain manipulation Repeat abdominal CT on 08/02 with improving size and multiple abscesses but still one that is large 9 cm- discussed with IR not possible as drain additional larger pocket as loculated other pockets too small Pt pulled out his LUQ drain on 08/17 due to encephalopathy. Repeat CT abd/pel 08/17 shows Persistent but not worsening abscesses IR attempted to place new drain on 08/18 without success Appreciate infectious disease recommendations -continue daptomycin, Zosyn, and renally adjusted fluconazole w/ reevaluation for likely extension with CT abd/pel q2-3 weeks-next CT should be around 09/01- 09/08 Switched cefepime to IV Zosyn 08/10 due to concern for cefepime induced neurotoxicity. - Discontinued metronidazole after completing course on 08/10 - Patient was started on Remeron for appetite stimulant and in case depression causing poor appetite -Check CK once weekly while on daptomycin, -changing wound vac q72h--> wound looks excellent biggest issue revolves around poor oral intake 50 pound weight loss while in the hospital and inability to axis fluid collection in his abdomen. Although stable hemodynamically and leukocytosis is not elevated the concern would be that this is not become sterile yet. Trying to secure appropriate feeding is difficult as the patient is not easy to access via a endoscopic place G-tube or surgical place J-tube due to recent abdominal surgical events. Considerations of tertiary transfer now that the group home system hospital transfer it will be less likely. Will arrange transfer to [facility] in AM. (3) Encephalopathy: Plan: Acute encephalopathy, probably metabolic from hospital delirium, insomnia, thiamine deficiency/Wernicke's encephalopathy, renal failure, and possibly medication/antibiotic induced. Initial bout of encephalopathy previously resolved and then significantly worsened again with hyperactive delirium the week of 08/13.Was not sleeping well, hallucinating, delusional, had nystagmus No signs of new infection and repeat UA no infection, Ur cx no growth, improved with thiamine and Seroquel-> high dose thiamine on 08/19 and increased Seroquel to 50mg po bid CT abd/pel repeated 08/17 with improving abscesses except LUQ one same. Also with inflammation of bladder c/w cystitis Head CT scan negative and repeated on 08/20-again neg for acute Continue IM Zyprexa bid prn (but has not needed now in a few days) Continue Seroquel 25mg qAM and 50mg qhs--> ECG with mildly prolonged QTc-follow periodically while on diflucan Continue Remeron 15mg hs for improved sleep and appetite Gave IV ativan x 1 for hemodialysis on 08/17 and again 08/19 but would try to avoid further benzos if possible as this seemed to make him worse HD ongoing, antibiotic therapy ongoing Supportive care Received thiamine 500 Mg IV every 8 x 6 doses and converted to 200mg po bid x 1 month through 09/21/23 delirium continues intermittently using as needed Ativan and Haldol (4) Acute hypoxic respiratory failure: Plan: resolved, was 2/2 volume overload from pleural effusions from DERIK Recent echocardiogram on 06/21 showed normal EF TPN restarted on 08/24/1308/25/2023 due to 50 pound weight loss during the hospital stay. -still w/ pleural effusions (5) Acute blood loss anemia: Plan: Postoperatively from initial surgery, now anemia from renal failure, chronic disease as well, low but stable Then with active bleeding from TIJ site and hgb now down to 7.3, sinus tachycardia, worsening encephalopathy--> transfused 1 unit PRBCs with HD on 08/17 and now hgb up to 9.5 B12, folate, iron studies normal TSH mildly elevated and free T4 mildly low-follow Received 3 units of blood this admission (6) Hard of hearing: Plan: Supportive care, wears hearing device (7) Ulcerative colitis: Plan: Patient with ulcerative colitis diagnosed by colonoscopy in 06/2023 Now status post subtotal colectomy with only rectal stump remaining No treatment needed at this point but will need continued surveillance for colorectal CA of the rectal stump Will need follow-up with GI as an outpatient Plan Dispo-continued stay anticipate discharge this week Extensive discussion with the group home system -dialysis needs to be arranged at group home system--> [id number] discussion with physicians at [facility] system which is a more about alf type convalescent facility than a robust medical facility, they are reluctant to take the patient in transfer. Admission and Anticipated Discharge Date Admission Date: June 28, 2023 Subjective Patient reports no new symptoms. Review of Systems Review of Systems: All systems reviewed & are unremarkable except as noted in HPI & below Physical Exam Physical Exam: His physical exam is little change he is in very little distress his ostomy is functioning well his lungs are clear and heart is regular wound no longer has wound vacc Results & Data Results & Data Vital Signs (Past 12 Hours) Vital Signs Temp Pulse Pulse Pulse Resp BP BP 08/26/23 19:57 36.4 C L 88 18 142/95 H 08/26/23 15:50 36.5 C 93 H 17 148/99 H 08/26/23 12:36 36.5 C 97 H 19 136/88 08/26/23 12:18 36.6 C 72 143/86 H 08/26/23 11:45 92 H 130/93 08/26/23 11:30 95 H 137/92 08/26/23 11:00 80 124/41 L 08/26/23 10:30 86 132/96 08/26/23 10:00 91 H 115/89 08/26/23 09:57 86 08/26/23 09:30 102 H 107/80 08/26/23 09:01 91 H 123/81 08/26/23 08:55 36.7 C 98 H Pulse Ox O2 Del Method 08/26/23 19:57 98 Room Air 12/14/23 15:50 100 Room Air 08/26/23 12:36 99 Room Air 08/26/23 12:18 08/26/23 11:45 08/26/23 11:30 08/26/23 11:00 08/26/23 10:30 08/26/23 10:00 08/26/23 09:57 08/26/23 09:30 08/26/23 09:01 08/26/23 08:55 PG Care Time/CCT Total # of Minutes Spent Total Time Spent with Patient: Total time spent is greater than 50% in coordination of care (as documented) at patient's floor/unit and/or counseling patient: Coding Level of Care Code 61088 SUB INP/OBS CARE 2/35MIN Diagnoses Acute kidney injury N17.9 Perforated abdominal viscus R19.8 Encephalopathy G93.40 Acute hypoxic respiratory failure J96.01 Acute blood loss anemia D62 Bilateral hearing loss, unspecified hearing loss type H91.93 Hearing loss type: unspecified Laterality: bilateral Ulcerative pancolitis with abscess K51.014 Ulcerative colitis location: ulcerative pancolitis Digestive disease complication type: with abscess (6) Hard of hearing Hearing loss type: unspecified Laterality: bilateral Qualified Code(s): H9 1.93 - Unspecified hearing loss, bilateral (7) Ulcerative colitis Ulcerative colitis location: ulcerative pancolitis Digestive disease complication type: with abscess Qualified Code(s): K51.014 - Ulcerative (chronic) pancolitis with abscess
[2023-08-26] MEDS: FLUCONAZOLE 200 MG/100 ML BAG IV SCH (21:57)
[2023-08-26] MEDS ORDERED: STOP CLINOLIPID SCH (22:00)
[2023-08-27] MEDS: PIPERACILLIN/TAZOBACTAM 4.5 GM in DEXTROSE 5% MINI-B 100 ML IV SCH ×2 (04:09→17:20)
[2023-08-27 06:20] LABS: BUN Creatinine Ratio 8.2 (10-20); Calcium 7.9 mg/dl (8.6-10.3); Creatinine Clr Calc Pharmacy 14.4 ml/min; Est GFR (African American) 19.1 ml/min; Est GFR (Non-African American) 16.4 ml/min; Magnesium 1.7 mg/dl (1.7-2.4); Phosphorus 2.4 mg/dl (2.5-4.9); Potassium 3.6 mmol/L (3.5-5.1)
[2023-08-27] MEDS: METOPROLOL TARTRATE 25 MG TAB PO SCH ×2 (09:03→20:10)
[2023-08-27] MEDS: PANTOprazole 40 MG TAB PO SCH ×2 (09:03→22:10)
[2023-08-27] MEDS: QUEtiapine FUMARATE 25 MG TABLET PO SCH ×2 (09:04→20:10)
[2023-08-27] MEDS: THIAMINE HCL 100 MG TAB PO SCH ×2 (09:04→20:10)
--- NOTE | 2023-08-27 10:11 | Nephrology Progress Note ---
Date of Service August 27, 2023 Assessment & Plan (1) Acute kidney injury: Plan: Attributed to ATN. Dependent on HD. No signs of renal recovery. Completed dialysis yesterday without complications. Adequate clearance and UF. Volume status acceptable. Electrolytes normal. Catheter was sluggish yesterday. tPA was administered. Improved ability to flush following. Catheter is not leaking and integrity does not seem to be disrupted. The RN reported a whooshing sound when flushing the arterial port. This is being monitored. BP and volume status are acceptable. Started HD 08/12/23. TDC placed 08/16/[address] Kamara. Medications are appropriately dosed for kidney function. (2) Intra-abdominal abscess: Plan: Remains on daptomycin, Zosyn, and fluconazole. Medications appropriate for kidney function. CK weekly on dapto. TPN restarted yesterday. Orders reviewed with pharmacy. (3) Hypertension: Plan: BP controlled with metoprolol. Admission and Anticipated Discharge Date Admission Date: June 28, 2023 Subjective No acute events overnight. Adama tolerated HD well yesterday. He was awake and oriented this AM. He reports some appetite. No fevers or chills. No complaints reported. Review of Systems Review of Systems: All systems reviewed & are unremarkable except as noted in HPI & below Physical Exam Constitutional: well developed, + cachectic and + frail appearing; no acute distress Eyes: + anicteric sclerae; no corneal abnormal ity ENMT: Mouth: no oral mucosal abnormality and oral mucous membranes not dry Neck: normal visual inspection and trachea midline Respiratory: normal respiratory effort Auscultation: lungs clear to auscultation bilaterally Cardiovascular: Rate/Rhythm: regular rate Heart Sounds: normal S1 and normal S2 Extremities: no edema Musculoskeletal: Extremities: no cyanosis and no clubbing Skin: normal turgor; no jaundice Neurologic: Motor/Sensory: no tremor and no asterixis Psychiatric: Orientation: alert, oriented to person, oriented to place and cooperative Results & Data Vital Signs (Past 12 Hours) Vital Signs Temp Pulse Pulse Pulse Resp BP Pulse Ox 08/27/23 09:00 08/27/23 07:55 36.4 C L 89 20 136/96 99 08/27/23 07:49 80 08/27/23 03:24 36.7 C 89 18 135/84 99 08/26/23 22:15 37.0 C 96 H 18 153/98 H 96 O2 Del Method O2 Flow Rate 08/27/23 09:00 Room Air 0 08/27/23 07:55 Room Air 08/27/23 07:49 08/27/23 03:24 Room Air 08/26/23 22:15 Room Air Laboratory Results Laboratory Results - last 24 hr 08/26/23 08/26/23 08/26/23 12:35 18:05 23:58 Sodium Potassium Chloride Carbon Dioxide Anion Gap BUN Creatinine Est Cr Clr Drug Dosing Est GFR ( Amer) Est GFR (Non-Af Amer) BUN/Creatinine Ratio Glucose POC Glucose 111 H 152 H 176 H Calcium Phosphorus Magnesium 08/27/23 08/27/23 05:23 06:01 Sodium 137 Potassium 3.6 Chloride 107 Carbon Dioxide 22 Anion Gap 8 BUN 32 H Creatinine 3.89 H D Est Cr Clr Drug Dosing 14.4 Est GFR ( Amer) 19.1 Est GFR (Non-Af Amer) 16.4 BUN/Creatinine Ratio 8.2 L Glucose 113 H POC Glucose 112 H Calcium 7.9 L Phosphorus 2.4 L D Magnesium 1.7 PG Care Time/CCT Total # of Minutes Spent Total Time Spent with Patient: Total time spent is greater than 50% in coordination of care (as documented) at patient's floor/unit and/or counseling patient: Coding Level of Care Code 49001 SUB INP/OBS CARE 3/50MIN Diagnoses Acute kidney injury N17.9 Intra-abdominal abscess K65.1 Hypertension I10
--- NOTE | 2023-08-27 13:23 | Infectious Disease Progress Nt ---
Date of Service August 27, 2023 Assessment & Plan (1) Encephalopathy: (2) Sepsis: (3) S/P colon resection: (4) Pneumoperitoneum: (5) Ulcerative colitis: (6) Perforated abdominal viscus: (7) Intra-abdominal abscess: Plan Adama Deleon is a 53-year-old man, currently incarcerated, with history of recently diagnosed with ulcerative pancolitis, started on prednisone and mesalamine, who presented on 06/28 with abdominal pain and vomiting, found to have perforated viscus with pneumoperitoneum and secondary polymicrobial feculent peritonitis s/p ex-lap, subtotal colectomy, and ileostomy (06/28). He was found to have multiple areas of perforation w/in the cecum/transverse/ sigmoid colon with feculent peritonitis with multiple intraabdominal abscesses, abd fluid cx + Mariely albicans/dubliniensis, MSSA, PsA, treated with pip-tazo and caspofungin. Repeat CT A/P 07/05 with persistent collections, s/p IR drainage of LUQ collection on 07/06, cx +PsA and VRE, with abx changed to daptomycin, cefepime, fluconazole, and metronidazole. CT A/P on 08/02 with 9x9x7 cm collection; repeat CT on 08/17 shows improvement in collections though still with 8x2 cm collection presentpatient pulled out his LUQ drain on 08/17 which was unable to be replaced. Prior CT A/P on 08/02 showing improvement of collections however still with a large 9x9x[address]. [address] on 08/17 shows improvement in collections though still with 8x2 cm collection presentpatient pulled out his LUQ drain on 08/17 which was unable to be replaced. Agree with further evaluation by rads/surgery to see whether additional source control can be obtained. This may require transfer to another hospital with tertiary care. Given the lack of source control, he will require a prolonged duration of antibiotics and would be preferable to continue the antibiotics IV. Will likely require several weeks of IV antibiotics with serial reimaging every 2-4 weeks and interval reassessment to evaluate for improvement. If collections persist, he should be reevaluated after each imaging study to see if source control can be optimized (e.g., IR drainage including new drain, upsizing, and repositioning). Would continue daptomycin, pip-tazo, and fluconazole for coverage of MSSA, PsA, VRE, and Mariely. Would continue serial reimaging, with next CT potentially in another ~2 weeks (end of Aug 2023). QTc of 440 on 08/03/23, 08/19 QTc of 496. Would repeat EKG. Please ensure close follow-up of renal function and ensure that antibiotics are appropriately renally dosed. ID Problem List: 1.Polymicrobial Feculent Peritonitis s/p ruptured viscous: MSSA, PsA, VRE, Mariely alb/dub 2.Multiple abdominal abscess s/p IR drain placement 3.Ulcerative Pancolitis 4.Leukocytosis Recommendations: - Continue antibiotics for at least another 2 weeks (08/03/23 09/12/23) with reevaluation and likely extension for antibiotics pending ID evaluation and reimaging: ---- daptomycin 600 mg IV Q48H (renally dosed) ---- pip-tazo 4.5 g IV Q12H (renally dosed) ---- fluconazole 200 mg IV daily (renally dosed) - Closely follow renal function to ensure antibiotics are dosed appropriately - Lab monitoring while on abx: weekly CBC w/ diff, CMP, CPK - Repeat EKG to evaluate QTc - Agree with further evaluation by rads/surgery to see whether additional source control can be obtained. This may require transfer to another hospital with tertiary care. - Consider repeat CT A/P in ~2 weeks (last week of 08/2023) ID will continue to follow, but does not monitor the chart or round over the weekend; covering physician can be contacted at [phone] ([facility] call center) for telephonic consultation if needed. I will resume care of the ID service on Wednesday. Camilla Hart MD, MHS Infectious Diseases [facility] Connect direct line: [phone] Admission and Anticipated Discharge Date Admission Date: June 28, 2023 Subjective Subsequent visit was provided via telemedicine using two-way real-time interactive telecommunication between the patient and the telemedicine provider. For the duration of the visit, the provider was performing the assessment from a different facility than the patient. This includesuse of bluetooth stethoscope forauscultationperformed by the telepresenter that the telemedicine provider can hear if described in the physical exam. Test Facility Engineer contact information: Please call [facility] Call Center . (Phone Number For Physician Use Only) After establishing a telemedicine visit, patient was: Patient was verified with two unique identifiers, Patient/authorized rep acknowledged consent and understanding and Gave permission to continue telehealth session Time Spent with Patient: Subsequent => 35 min - ID reengaged on 08/27/23 given patients persistent abd fluid collections - Has been afebrile. No new culture data has been obtained - 08/16 RIJ permacath placed for HD - On 08/17 due to encephalopathy patient removed his LUQ drain. As of 08/17 evaluation, radiology was unable to place an additional drain - 08/17 CT scan showed persistent intraabdominal fluid collections including LUQ 8.2 x 2.4 cm collection. - Patient has had fatigue and poor appetite. Upon evaluation, he reports that he has had intermittent mild abdominal pain. Intermittently with night sweats. No fevers. - 08/26 CPK 73 Physical Exam Physical Exam: Exam obtained with aid of in-person telepresenter. General: Chronically ill-appearing, no acute distress HEENT: Conjunctivae non-injected, MMM, OP clear. Resp: Respirations nonlabored. Abd: Mildly tender to palpation. Ostomy c/d/i Ext: Warm and well-perfused, no edema. No joint warmth or effusions noted. Thin, muscle wasting. Skin: No rashes or lesions. Neuro: Alert & interactive. Grossly non-focal. Psych: Pleasant, appropriate. Results & Data Vital Signs (Past 12 Hours) Vital Signs Temp Pulse Pulse Pulse Resp BP Pulse Ox 08/27/23 11:58 36.5 C 87 21 145/104 H 99 08/27/23 09:00 08/27/23 07:55 36.4 C L 89 20 136/96 99 08/27/23 07:49 80 08/27/23 03:24 36.7 C 89 18 135/84 99 O2 Del Method O2 Flow Rate 08/27/23 11:58 Room Air 08/27/23 09:00 Room Air 0 08/27/23 07:55 Room Air 08/27/23 07:49 08/27/23 03:24 Room Air Diagnostic Findings Diagnostics: 08/17/[address] The left upper quadrant collection is similar in size and currently measures 8.2 x 2.4 cm. This study was performed for reevaluation of the collection to assess for possible repeat drain/catheter placement. However, the access window was considered too small to safely drain. Therefore, the procedure was not performed. 08/17/23 CT A/P 1. Significantly suboptimal examination without oral and IV contrast. 2. Again seen are numerous residual intra-abdominal fluid collections as detailed above which are typical for abscesses. These are overall similar in appearance to the 08/09/2023 examination. 3. A surgical drain is present within the largest collection in the left upper quadrant around the spleen. 4. Moderate pleural effusions with dependent consolidation. These are similar to previous. 5. The bladder wall appears circumferentially thickened with surrounding inflammation. Correlate with urinalysis. 6. Ventral abdominal wound/scar with postsurgical change from subtotal colectomy and right lower quadrant ileostomy. 7. Question wall thickening of the rectosigmoid stump. Correlate clinically. 8. Anasarca of the body wall. 9. Additional findings as above. 08/02 CT A/P Peritoneum: There is a wound in the infraumbilical abdominal wall. Again seen are numerous intraperitoneal fluid collections. A thick-walled gas and fluid con taining crescentic collection in the left upper quadrant extending from the left hemidiaphragm to below the spleen has decreased in size from previous, measuring approximately 9 x 9 x 7 cm as seen on axial image #704 This contains a percutaneous drainage catheter. A small multiloculated fluid collection along the gastric fundus has also decreased in size from previous. The residual collection is not well visualized without IV contrast, likely measuring at least 3 cm as seen on image #57. A fluid collection below the gallbladder has also decreased in size. This measures up to 2.5 cm seen on image #144. A thick-walled gas and fluid containing collection in the pelvis above the sigmoid has decreased in size from previous. This measures approximately 2.5 x 1.5 x 5 cm. 1. Significantly suboptimal examination without oral and IV contrast. 2. There are numerous residual intra-abdominal fluid collections as detailed above which are typical for abscesses. These have significantly decreased in size as compared to 07/19/2023. 3. A surgical drain is present within the largest collection in the left upper quadrant around the spleen. 4. Small right and moderate left effusion with left basilar consolidation. These have increased in size to previous. 5. There is increasing body wall edema from previous. 6. Ventral abdominal wound with postsurgical change from subtotal colectomy and right lower quadrant ileostomy. 7. There is nonspecific gas within the bladder lumen. 8. Additional findings as above. 07/19 CT A/P 1. There are numerous large residual intra-abdominal fluid collections as above which are typical for abscesses. These have modestly decreased in size as compared to 07/10/2023. 2. A surgical drain is present within the largest collection in the left upper quadrant around the spleen. The surgical drain in the pelvis seen on 07/10/2023 has been removed. 3. Small to moderate left pleural effusion with left basilar consolidation. 4. Heterogeneous enhancement of both kidneys is nonspecific and can be seen with infection/pyelonephritis. Correlate with clinical findings/urinalysis. 5. Ventral abdominal wound with postsurgical change from subtotal colectomy and right lower quadrant ileostomy. 6. There is no bowel obstruction. 7. There is nonspecific gas within the bladder lumen. 8. Additional findings as above. Micro Summary: 08/20 UCx <1k 08/12 HbsAg neg, HBsAb 5 (low) 07/28 C3 88, C4 27 07/27/23 UCx NG 07/08 UCx NG 07/06 Abd fluid cx: PsA #1, PsA #2 (dailey-sensitive), VRE (S dapto, OSVALDO 4) 06/28 Abd fluid cx: PsA, C albicans/dub, MSSA 06/28 BCx x2: NG Antibiotic Summary: Daptomycin (07/12 present) Fluconazole (07/14- present) Zosyn (06/28-07/09, 07/22 07/28, 08/10-present) Prior Cefepime 06/28, 07/11-07/22, (07/28-08/10) metronidazole 06/28, 07/12- 07/22, (07/28-08/10) caspofungin 06/29-07/10 (5) Ulcerative colitis Ulcerative colitis location: ulcerative pancolitis Digestive disease complication type: with abscess Qualified Code(s): K51.014 - Ulcerative (chronic) pancolitis with abscess
--- NOTE | 2023-08-27 13:51 | CT Scan Report ---
ABDOMEN AND PELVIS CT WITHOUT CONTRAST CT DOSE: 340.27 mGy.cm HISTORY: re-eval abscesses of abdomen. TECHNIQUE: Multiaxial CT images of the abdomen and pelvis were performed without contrast. A dose lo wering technique was utilized adhering to the principles of ALARA. COMPARISON STUDY: Abdomen and pelvis CT 08/17/2023. Abdominal CT 08/18/2023. FINDINGS: The right pleural effusion has resolved in the interval. A small to moderate left pleural e ffusion has also decreased in size. Consolidation within the left lower lobe posteriorly favors compr essive atelectasis from the pleural effusion. No acute fractures identified. Hypodense blood pool sug gests underlying anemia. Prior midline incision. Suboptimal evaluation of the abdomen and pelvis due to the lack of intravenous and oral contrast. The unenhanced liver, gallbladder, and adrenal glands u nremarkable. There are few punctate calcifications within the pancreas. No hydronephrosis. No renal o r ureteral stones. Mild bilateral perinephric edema persists. Enlargement of the kidneys which could represent underlying renal insufficiency. No retroperitoneal hematoma or lymphadenopathy. Calcified p laque within the normal caliber abdominal aorta. The prostate gland is mildly enlarged. Normal bladde r. Rectal wall thickening may be due to underdistention. Mild body wall edema is noted. Prior subtota l colectomy with a right lower quadrant ileostomy. No dilated loops of bowel to suggest an obstructio n. Questionable mild thickening within multiple small bowel loops within left side the abdomen which could be due to underdistention. A low-grade enteritis could also a similar appearance. There is mild mesenteric edema again noted. The left upper quadrant/perisplenic fluid collection is again noted st able and is similar in size compared the prior study. This continues to measure approximately 8.2 x 2 .4 cm. A few additional scattered small fluid collections within the abdomen seen on the prior studie s have improved/resolved in the interval. There is a focal hypodense focus which appears to be within the wall of the stomach on image 111. This measures 1.9 cm, previously measuring 1.3 cm. This could represent a small intramural fluid collection/abscess. IMPRESSION: 1. Decrease in size in the small to moderate left pleural effusion. The right pleural effusion has re solved in the interval. 2. The left upper quadrant/perisplenic fluid collection is similar in size compared to the prior stud y. This measures 8.2 x 2.4 cm. 3. A few additional scattered smaller fluid collections within the abdomen seen on the prior studies have also decreased in size/resolved in the interval. 4. Rectal wall thickening which has improved. 5. Mild thickening of multiple small bowel loops within left side of the abdomen. This is consistent with a nonspecific enteritis. 6. A 1.9 cm hypodense focus which appears to be within the wall of the stomach. This is slightly incr eased in size compared to the prior study. This could represent a small intramural abscess. 7. Additional findings as described above. ACT 112: Negative or not required by law. Electronically signed by: Lior Richardson M.D. 08/27/2023 1:49 PM
--- NOTE | 2023-08-27 15:03 | Pharmacy Report ---
Pharmacy PN Follow-up Note - Date of Service August 27, 2023 - Subjective * The patient is a 53 year old Male admitted on 06/28/23 for colonic perforation, peritonitis. Patient is s/p subtotal colectomy and ileostomy. * Patient had received parenteral nutrition earlier this admission however this was d/c'd secondary to volume overload on 08/11 * Patient resumed parenteral nutrition 08/25 for ongoing poor PO intake, likely due to encephalopathy. * Nephrology aware of TPN volumes providing ~1200-1300mL per day. - Objective Height & Weight (Last Documented) Height 5 ft 9 in Weight 47 kg Diet Order(s) 08/18/23 Lunch Diet Intake & Ouput (24hrs) 08/26/23 08/27/23 08/28/23 06:59 06:59 06:59 Intake Total 360 / 360 1925.7 / 1925.7 665.693 / 665.693 Output Total 400 / 400 Balance 360 / 360 1525.7 / 1525.7 665.693 / 665.693 Selected Laboratory Results 08/27/23 05:23 Sodium 137 Potassium 3.6 Chloride 107 Carbon Dioxide 22 Anion Gap 8 BUN 32 H Creatinine 3.89 H D Est GFR ( Amer) 19.1 Est GFR (Non-Af Amer) 16.4 BUN/Creatinine Ratio 8.2 L Glucose 113 H Calcium 7.9 L Phosphorus 2.4 L D Magnesium 1.7 - Assessment & Plan Assessment: * Electrolytes reviewed; mild hypophosphatemia noted * Volume of TPN okayed by Nephrology * Patient is still HD dependent receiving intermittent HD; last treatment yesterday * K, Phos and Mg trending down slightly, but given renal impairment only modest amounts will be added to today's bag * Will check triglycerides tomorrow; TG have been elevated, likely unnecessary to hold unless > 400 per ASPEN recs * Patient is currently at target macronutrients per Dietary recs. Plan: * For Day #3 of TPN administration, the following will be ordered: * Macronutrients: * Amino Acids: 80 grams/day * Dextrose: 140 grams/day * Lipids: 40 grams/day * Micronutrients: * Sodium chloride: 40 mEq/day * Sodium acetate: 40 mEq/day * Potassium phosphate: 12 mMol/day * Potassium chloride: 10 mEq/day * Calcium gluconate: 4.65 mEq/day * Magnesium sulfate: 12.18 mEq/day * Multivitamins: 10 mL/day * Trace elements: 1 mL/day * Folic acid: 1mg/day * Total volume of 1269.2 mL (1069.2mL Clinimix + 200mL Lipids) will be infused over 24 hours and will provide 1196 kcal/day * Labs will be ordered per PN protocol. * Pharmacy will follow and adjust PN orders on a daily basis. Thank you!
[2023-08-27] MEDS ORDERED: CLINOLIPID 20% IV FAT EMULSION 200 ML IV SCH (16:00)
[2023-08-27] MEDS ORDERED: [UNRECOGNIZED DRUG - OTHER] IV SCH (16:00)
[2023-08-27] MEDS ORDERED: CENTRAL TPN IV SCH (16:00)
[2023-08-27] MEDS: FLUCONAZOLE 200 MG/100 ML BAG IV SCH (20:06)
[2023-08-27] MEDS: DAPTOmycin 600 MG in SYRINGE 0 ML IV SCH (20:06)
[2023-08-27] MEDS ORDERED: STOP CLINOLIPID SCH (22:00)
--- NOTE | 2023-08-27 22:28 | Hospitalist Progress Note ---
Date of Service August 27, 2023 Assessment & Plan (1) Acute kidney injury: Plan: First noted 07/25-maybe ATN due to poor po intake and previous sepsis, AIN from meds not likely as no WBCs on UA, could be OSWALDO from CT scans patient got volume overloaded with minimal response to several doses of IV diuretics Femoral vein temporary dialysis catheter placed and started on dialysis on 08/12, 08/13. continues on HD TThSat Im[employer]isher consult continuing -TIJ cath placed 08/16, had bleeding afterwards which is now stopped. Femoral line has since been removed -continue HD as per Nephro and will need HD set [facility] at [facility], did a peer to peer discussion with Dr Friedman -Tried to transfer patient to tertiary center: For advanced IR. This was denied, due to lack of window to obtain fluid. Gen suregry reports they will not operate on patient as patient is clinically stable. Discussed with ID, continue antibiotics. (2) Perforated abdominal viscus: Plan: Patient with recent diagnosis of Ulcerative pancolitis, and had sessile polyp biopsied along with other biopsies on a colonoscopy during previous admission. Presented with free air, to OR 06/28/23 with subtotal colon resection with rec eddie stump remaining, and ileostomy. Three areas of perforation were identified, abscess and feculent material seen. Pseudomonas, Staphylococcus aureus, and Enterococcus faecium as well as Mariely albicans isolated. Repeat abdominal CT scan 07/19 shows persistent fluid collections consistent with abscess 07/23/2023 shows a leukocytosis hence the drain manipulation Repeat abdominal CT on 08/02 with improving size and multiple abscesses but still one that is large 9 cm- discussed with IR not possible as drain additional larger pocket as loculated other pockets too small Pt pulled out his LUQ drain on 08/17 due to encephalopathy. Repeat CT abd/pel 08/17 shows Persistent but not worsening abscesses IR attempted to place new drain on 08/18 without success Appreciate infectious disease recommendations -continue daptomycin, Zosyn, and renally adjusted fluconazole w/ reevaluation for likely extension with CT abd/pel q2-3 weeks-next CT should be around 09/01- 09/08 Switched cefepime to IV Zosyn 08/10 due to concern for cefepime induced neurotoxicity. - Discontinued metronidazole after completing course on 08/10 - Patient was started on Remeron for appetite stimulant and in case depression causing poor appetite -Check CK once weekly while on daptomycin, -changing wound vac q72h--> wound looks excellent biggest issue revolves around poor oral intake 50 pound weight loss while in the hospital and inability to axis fluid collection in his abdomen. Although stable hemodynamically and leukocytosis is not elevated the concern would be that this is not become sterile yet. Trying to secure appropriate feeding is difficult as the patient is not easy to access via a endoscopic place G-tube or surgical place J-tube due to recent abdominal surgical events. Considerations of tertiary transfer now that the [facility] hospital transfer it will be less likely. Will arrange transfer to [facility] in AM. (3) Encephalopathy: Plan: Acute encephalopathy, probably metabolic from hospital delirium, insomnia, thiamine deficiency/Wernicke's encephalopathy, renal failure, and possibly medication/antibiotic induced. Initial bout of encephalopathy previously resolved and then significantly worsened again with hyperactive delirium the week of 08/13.Was not sleeping well, hallucinating, delusional, had nystagmus No signs of new infection and repeat UA no infection, Ur cx no growth, improved with thiamine and Seroquel-> high dose thiamine on 08/19 and increased Seroquel to 50mg po bid CT abd/pel repeated 08/17 with improving abscesses except LUQ one same. Also with inflammation of bladder c/w cystitis Head CT scan negative and repeated on 08/20-again neg for acute Continue IM Zyprexa bid prn (but has not needed now in a few days) Continue Seroquel 25mg qAM and 50mg qhs--> ECG with mildly prolonged QTc-follow periodically while on diflucan Continue Remeron 15mg hs for improved sleep and appetite Gave IV ativan x 1 for hemodialysis on 08/17 and again 08/19 but would try to avoid further benzos if possible as this seemed to make him worse HD ongoing, antibiotic therapy ongoing Supportive care Received thiamine 500 Mg IV every 8 x 6 doses and converted to 200mg po bid x 1 month through 09/21/23 delirium continues intermittently using as needed Ativan and Haldol (4) Acute hypoxic respiratory failure: Plan: resolved, was 2/2 volume overload from pleural effusions from DERIK Recent echocardiogram on 06/21 showed normal EF TPN restarted on 08/24/1308/25/2023 due to 50 pound weight loss during the hospital stay. -still w/ pleural effusions (5) Acute blood loss anemia: Plan: Postoperatively from initial surgery, now anemia from renal failure, chronic disease as well, low but stable Then with active bleeding from TIJ site and hgb now down to 7.3, sinus tachycardia, worsening encephalopathy--> transfused 1 unit PRBCs with HD on 08/17 and now hgb up to 9.5 B12, folate, iron studies normal TSH mildly elevated and free T4 mildly low-follow Received 3 units of blood this admission (6) Hard of hearing: Plan: Supportive care, wears hearing device (7) Ulcerative colitis: Plan: Patient with ulcerative colitis diagnosed by colonoscopy in 06/2023 Now status post subtotal colectomy with only rectal stump remaining No treatment needed at this point but will need continued surveillance for colorectal CA of the rectal stump Will need follow-up with GI as an outpatient Plan Dispo-continued stay anticipate discharge this week Extensive discussion with the [facility] -dialysis needs to be arranged at [facility]--> [id number] discussion with physicians at [facility] system which is a more about long-term type convalescent facility than a robust medical facility, they are reluctant to take the patient in transfer. Admission and Anticipated Discharge Date Admission Date: June 28, 2023 Subjective Patient reports he can try to eat more. He just reports lack of appetitie. Review of Systems Review of Systems: All systems reviewed & are unremarkable except as noted in HPI & below Physical Exam Physical Exam: His physical exam is little change he is in very little distress his ostomy is functioning well his lungs are clear and heart is regular Results & Data Results & Data Vital Signs (Past 12 Hours) Vital Signs Temp Pulse Pulse Pulse Resp BP Pulse Ox 08/27/23 19:00 36.8 C 86 17 132/91 99 08/27/23 17:52 92 H 08/27/23 15:47 36.7 C 88 99 H 124/84 98 08/27/23 11:58 36.5 C 87 21 145/104 H 99 O2 Del Method 08/27/23 19:00 Room Air 08/27/23 17:52 08/27/23 15:47 Room Air 08/27/23 11:58 Room Air PG Care Time/CCT Total # of Minutes Spent Total Time Spent with Patient: Total time spent is greater than 50% in coordination of care (as documented) at patient's floor/unit and/or counseling patient: Prolonged Care Time Prolonged Care Time: Yes Total Prolonged Care Time: 65 11:30 to 12:05 15:30 to 16:00 Coding Level of Care Code 04468 SUB INP/OBS CARE 3/50MIN Diagnoses Acute kidney injury N17.9 Perforated abdominal viscus R19.8 Encephalopathy G93.40 Acute hypoxic respiratory failure J96.01 Acute blood loss anemia D62 Bilateral hearing loss, unspecified hearing loss type H91.93 Hearing loss type: unspecified Laterality: bilateral Ulcerative pancolitis with abscess K51.014 Digestive disease complication type: with abscess Ulcerative colitis location: ulcerative pancolitis Additional Codes Prolonged Care Time - Prolonged Care Time: Yes ([id number]) Time Spent (min) 65 (6) Hard of hearing Hearing loss type: unspecified Laterality: bilateral Qualified Code(s): H91.93 - Unspecified hearing loss, bilateral (7) Ulcerative colitis Digestive disease complication type: with abscess Ulcerative colitis location: ulcerative pancolitis Qualified Code(s): K51.014 - Ulcerative (chronic) pancolitis with abscess
[2023-08-28] MEDS: PIPERACILLIN/TAZOBACTAM 4.5 GM in DEXTROSE 5% MINI-B 100 ML IV SCH ×2 (04:48→16:09)
[2023-08-28 07:21] LABS: Hematocrit (blood only) 26.2 % (42.0-52.0); Hemoglobin 8.3 g/dl (14.0-18.0); Mean Corpuscular Hemoglobin 29.1 pg (25.0-34.0); Mean Corpuscular Hgb Conc 31.7 g/dL (32.0-36.0); Mean Corpuscular Volume 91.9 fL (80.0-100.0); Mean Platelet Volume 9.9 fL (9.4-12.4); Platelet Count 284 K/uL (130-400); RDW Standard Deviation 53.7 fL (36.4-46.3); Red Blood Count 2.85 M/uL (4.70-6.10)
--- NOTE | 2023-08-28 08:11 | Electrocardiogram Report ---
Test Reason : Blood Pressure : / mmHG Vent. Rate : 082 BPM Atrial Rate : 082 BPM P-R Int : 088 ms QRS Dur : 078 ms QT Int : 374 ms P-R-T Axes : 060 032 089 degrees QTc Int : 436 ms Sinus rhythm with short AK Nonspecific T wave abnormality Abnormal ECG When compared with ECG of 20-AUG-2023 10:46, AK interval has decreased Non-specific change in ST segment in Inferior leads ST no longer depressed in Anterior leads T wave inversion no longer evident in Inferior leads Confirmed by Derick Escalona ([id number]) on 08/28/2023 8:11:22 AM Referred By: [facility] Confirmed By:Derick Escalona
--- NOTE | 2023-08-28 08:34 | Nephrology Progress Note ---
Date of Service August 28, 2023 Assessment & Plan (1) Acute kidney injury: Plan: * ATN due to sepsis, contrast induced nephropathy. 07/27/23 renal US and 08/09/[address] were negative for obstruction. Baseline Cr ~ 1.0 * 1st HD 08/12/23 via temporary femoral catheter * R IJ THC placed 08/16/[address] Kamara * Will provide HD today to maintain TTS schedule. Orders have been placed in EMR and HD RN notified (2) Intra-abdominal abscess: Plan: * Remains on daptomycin, Zosyn, and fluconazole * 08/27/[address] - thickening of small bowel suggestive of enteritis, 1.9 cm area within the wall of the stomach concerning for intramural abscess. Await ID recommendations. Consider tertiary care center for ongoing medical/surgical management (3) Hypertension: Plan: * BP is acceptable. Remains on metoprolol therapy Admission and Anticipated Discharge Date Admission Date: June 28, 2023 Subjective Mr. Deleon was evaluated in his hospital room this morning. Dialysis was per formed 08/26/23. Catheter required tPA to function properly. Mr. Deleon voiced no medical concerns this morning Review of Systems Constitutional: no fever Eyes: no problem reported Ear, Nose, Mouth, Throat: no problem reported Respiratory: no cough and no dyspnea Cardiovascular: no chest pain Gastrointestinal: no abdominal pain, no nausea, no vomiting and no di arrhea/loose stools Musculoskeletal: + stiffness and + myalgia Physical Exam Constitutional: + ill appearing and + cachectic; not in distress Eyes: PERRL, conjunctivae normal, anicteric sclerae ENMT: external ear and nose normal, oropharynx normal Neck: trachea midline, no thyromegaly Respiratory: normal respiratory effort, lungs clear to auscultation Auscultation: + rales (at bases bilaterally) Cardiovascular: RRR, no murmur, no edema Rate/Rhythm: regular rate and regular rhythm Extremities: no edema Gastrointestinal (Abdomen): Inspection/Auscultation: + hypoactive bowel sounds Neurologic: alert, extremely [place] Results & Data Vital Signs (Past 12 Hours) Vital Signs Temp Pulse Pulse Resp BP Pulse Ox O2 Del Method 08/28/23 07:35 36.3 C L 82 20 135/91 100 Room Air 08/28/23 07:25 71 08/28/23 03:00 75 14 137/80 99 Room Air 08/27/23 23:00 79 08/27/23 23:00 36.6 C 91 H 19 141/93 H 100 Room Air Laboratory Results Laboratory Results - last 24 hr 08/27/23 08/27/23 08/28/23 12:00 18:03 00:18 WBC RBC Hgb Hct MCV MCH MCHC RDW Std Deviation RDW Coeff of Ashley Plt Count MPV Sodium Potassium Chloride Carbon Dioxide Anion Gap BUN Creatinine Est Cr Clr Drug Dosing Est GFR ( Amer) Est GFR (Non-Af Amer) BUN/Creatinine Ratio Glucose POC Glucose 118 H 109 H 111 H Calcium Phosphorus Magnesium Albumin Triglycerides 08/28/23 08/28/23 08/28/23 05:46 07:07 08:01 WBC 4.60 L RBC 2.85 L Hgb 8.3 L Hct 26.2 L MCV 91.9 MCH 29.1 MCHC 31.7 L RDW Std Deviation 53.7 H RDW Coeff of Ashley 16.0 H Plt Count 284 MPV 9.9 Sodium Cancelled Potassium Cancelled Chloride Cancelled Carbon Dioxide Cancelled Anion Gap Cancelled BUN Cancelled Creatinine Cancelled Est Cr Clr Drug Dosing Cancelled Est GFR ( Amer) Cancelled Est GFR (Non-Af Amer) Cancelled BUN/Creatinine Ratio Cancelled Glucose Cancelled POC Glucose 111 H 116 H Calcium Cancelled Phosphorus Cancelled Magnesium Cancelled Albumin Cancelled Triglycerides Cancelled 08/28/23 08:10 WBC RBC Hgb Hct MCV MCH MCHC RDW Std Deviation RDW Coeff of Ashley Plt Count MPV Sodium 137 Potassium 4.0 Chloride 107 Carbon Dioxide 21 Anion Gap 9 BUN 54 H D Creatinine 4.79 H* D Est Cr Clr Drug Dosing 12.5 Est GFR ( Amer) 14.8 Est GFR (Non-Af Amer) 12.8 BUN/Creatinine Ratio 11.3 Glucose 120 H POC Glucose Calcium 8.3 L Phosphorus 2.3 L Magnesium 2.0 Albumin 2.4 L Triglycerides 242 H PG Care Time/CCT Total # of Minutes Spent Total Time Spent with Patient: Total time spent is greater than 50% in coordination of care (as documented) at patient's floor/unit and/or counseling patient: Coding Level of Care Code 49775 SUB INP/OBS CARE 3/50MIN Diagnoses Acute kidney injury N17.9 Intra-abdominal abscess K65.1 Hypertension I10
[2023-08-28] MEDS: METOPROLOL TARTRATE 25 MG TAB PO SCH ×2 (08:39→20:16)
[2023-08-28] MEDS: THIAMINE HCL 100 MG TAB PO SCH ×2 (08:41→20:15)
[2023-08-28] MEDS: PANTOprazole 40 MG TAB PO SCH ×2 (08:41→20:16)
[2023-08-28] MEDS: QUEtiapine FUMARATE 25 MG TABLET PO SCH ×2 (08:41→20:16)
[2023-08-28 09:10] LABS: Albumin Level 2.4 gm/dl (3.4-5.0); BUN Creatinine Ratio 11.3 (10-20); Calcium 8.3 mg/dl (8.6-10.3); Creatinine Clr Calc Pharmacy 12.5 ml/min; Est GFR (African American) 14.8 ml/min; Est GFR (Non-African American) 12.8 ml/min; Phosphorus 2.3 mg/dl (2.5-4.9)
[2023-08-28] MEDS ORDERED: AA 8%/D14W 1L 1,071 ML in Central TPN bag 0 ML IV SCH (16:00)
[2023-08-28] MEDS ORDERED: CLINOLIPID 20% IV FAT EMULSION 200 ML IV SCH (16:00)
[2023-08-28] MEDS: FLUCONAZOLE 200 MG/100 ML BAG IV SCH (20:15)
--- NOTE | 2023-08-28 21:20 | Hospitalist Progress Note ---
Date of Service August 28, 2023 Assessment & Plan (1) Acute kidney injury: Plan: First noted 07/25-maybe ATN due to poor po intake and previous sepsis, AIN from meds not likely as no WBCs on UA, could be OSWALDO from CT scans patient got volume overloaded with minimal response to several doses of IV diuretics Femoral vein temporary dialysis catheter placed and started on dialysis on 08/12, 08/13. continues on HD [employer] consult continuing -TIJ cath placed 08/16, had bleeding afterwards which is now stopped. Femoral line has since been removed -continue HD as per Nephro and will need HD set up at [facility], did a peer to peer discussion with Dr Friedman -Tried to transfer patient to tertiary center: For advanced IR. This was denied, due to lack of window to obtain fluid. In house and tertiary Gen surgery reports they will not operate on patient as patient is clinically stable. Discussed with ID, continue antibiotics. GI reports no need for peg tube as patient's lack of intake is more behavior. This appears to be improving. (2) Perforated abdominal viscus: Plan: Patient with recent diagnosis of Ulcerative pancolitis, and had sessile polyp biopsied along with other biopsies on a colonoscopy during previous admission. Presented with free air, to OR 06/28/23 with subtotal colon resection with rectal stump remaining, and ileostomy. Three areas of perforation were identified, abscess and feculent material seen. Pseudomonas, Staphylococcus aureus, and Enterococcus faecium as well as Mariely albicans isolated. Repeat abdominal CT scan 07/19 shows persistent fluid collections consistent with abscess 07/23/2023 shows a leukocytosis hence the drain manipulation Repeat abdominal CT on 08/02 with improving size and multiple abscesses but still one that is large 9 cm- discussed with IR not possible as drain additional larger pocket as loculated other pockets too small Pt pulled out his LUQ drain on 08/17 due to encephalopathy. Repeat CT abd/pel 08/17 shows Persistent but not worsening abscesses IR attempted to place new drain on 08/18 without success Appreciate infectious disease recommendations -continue daptomycin, Zosyn, and renally adjusted fluconazole w/ reevaluation for likely extension with CT abd/pel q2-3 weeks-next CT should be around 09/01- 09/08 Switched cefepime to IV Zosyn 08/10 due to concern for cefepime induced neurotoxicity. - Discontinued metronidazole after completing course on 08/10 - Patient was started on Remeron for appetite stimulant and in case depression causing poor appetite -Check CK once weekly while on daptomycin, -changing wound vac q72h--> wound looks excellent biggest issue revolves around poor oral intake 50 pound weight loss while in the hospital and inability to axis fluid collection in his abdomen. Although stable hemodynamically and leukocytosis is not elevated the concern would be that this is not become sterile yet. Trying to secure appropriate feeding is difficult as the patient is not easy to access via a endoscopic place G-tube or surgical place J-tube due to recent abdominal surgical events. Considerations of tertiary transfer now that the [facility] hospital transfer it will be less likely. Will arrange transfer to [facility] in AM. (3) Encephalopathy: Plan: Acute encephalopathy, probably metabolic from hospital delirium, insomnia, thiamine deficiency/Wernicke's encephalopathy, renal failure, and possibly medication/antibiotic induced. Initial bout of encephalopathy previously resolved and then significantly worsened again with hyperactive delirium the week of 08/13.Was not sleeping well, hallucinating, delusional, had nystagmus No signs of new infection and repeat UA no infection, Ur cx no growth, improved with thiamine and Seroquel-> high dose thiamine on 08/19 and increased Seroquel to 50mg po bid CT abd/pel repeated 08/17 with improving abscesses except LUQ one same. Also with inflammation of bladder c/w cystitis Head CT scan negative and repeated on 08/20-again neg for acute Continue IM Zyprexa bid prn (but has not needed now in a few days) Continue Seroquel 25mg qAM and 50mg qhs--> ECG with mildly prolonged QTc-follow periodically while on diflucan Continue Remeron 15mg hs for improved sleep and appetite Gave IV ativan x 1 for hemodialysis on 08/17 and again 08/19 but would try to avoid further benzos if possible as this seemed to make him worse HD ongoing, antibiotic therapy ongoing Supportive care Received thiamine 500 Mg IV every 8 x 6 doses and converted to 200mg po bid x 1 month through 09/21/23 delirium continues intermittently using as needed Ativan and Haldol (4) Acute hypoxic respiratory failure: Plan: resolved, was 2/2 volume overload from pleural effusions from DERIK Recent echocardiogram on 06/21 showed normal EF TPN restarted on 08/24/1308/25/2023 due to 50 pound weight loss during the hospital stay. -still w/ pleural effusions (5) Acute blood loss anemia: Plan: Postoperatively from initial surgery, now anemia from renal failure, chronic disease as well, low but stable Then with active bleeding from TIJ site and hgb now down to 7.3, sinus tachycardia, worsening encephalopathy--> transfused 1 unit PRBCs with HD on 08/17 and now hgb up to 9.5 B12, folate, iron studies normal TSH mildly elevated and free T4 mildly low-follow Received 3 units of blood this admission (6) Hard of hearing: Plan: Supportive care, wears hearing device (7) Ulcerative colitis: Plan: Patient with ulcerative colitis diagnosed by colonoscopy in 06/2023 Now status post subtotal colectomy with only rectal stump remaining No treatment needed at this point but will need continued surveillance for colorectal CA of the rectal stump Will need follow-up with GI as an outpatient Plan Dispo-continued stay anticipate discharge this week Extensive discussion with the [facility] -dialysis needs to be arranged at [facility]--> [id number] discussion with physicians at [facility] system which is a more about fdc type convalescent facility than a robust medical facility, they are reluctant to take the patient in transfer. Admission and Anticipated Discharge Date Admission Date: June 28, 2023 Subjective Nursing reports patient has been eating more. Review of Systems Review of Systems: All systems reviewed & are unremarkable except as noted in HPI & below Physical Exam Physical Exam: His physical exam is little change he is in very little distress his ostomy is functioning well his lungs are clear and heart is regular Results & Data Results & Data Vital Signs (Past 12 Hours) Vital Signs Temp Pulse Pulse Resp BP BP Pulse Ox 08/28/23 20:12 36.4 C L 100 H 22 146/95 H 98 08/28/23 16:40 93 H 08/28/23 15:38 36.4 C L 95 H 18 133/78 100 08/28/23 13:10 36.8 C 90 17 112/79 100 08/28/23 12:35 36.4 C L 75 117/75 08/28/23 12:00 97 H 98/68 L 08/28/23 11:30 104 H 99/75 L 08/28/23 11:00 93 H 109/73 08/28/23 10:30 92 H 111/81 08/28/23 10:15 36.4 C L 72 08/28/23 10:00 83 120/87 08/28/23 09:45 79 132/87 O2 Del Method 08/28/23 20:12 Room Air 08/28/23 16:40 08/28/23 15:38 Room Air 08/28/23 13:10 Room Air 08/28/23 12:35 08/28/23 12:00 08/28/23 11:30 08/28/23 11:00 08/28/23 10:30 08/28/23 10:15 08/28/23 10:00 08/28/23 09:45 PG Care Time/CCT Total # of Minutes Spent Total Time Spent with Patient: Total time spent is greater than 50% in coordination of care (as documented) at patient's floor/unit and/or counseling patient: Coding Level of Care Code 24336 SUB INP/OBS CARE 2/35MIN Diagnoses Acute kidney injury N17.9 Perforated abdominal viscus R19.8 Encephalopathy G93.40 Acute hypoxic respiratory failure J96.01 Acute blood loss anemia D62 Bilateral hearing loss, unspecified hearing loss type H91.93 Hearing loss type: unspecified Laterality: bilateral Ulcerative pancolitis with abscess K51.014 Digestive disease complication type: with abscess Ulcerative colitis location: ulcerative pancolitis (6) Hard of hearing Hearing loss type: unspecified Laterality: bilateral Qualified Code(s): H91.93 - Unspecified hearing loss, bilateral (7) Ulcerative colitis Digestive disease complication type: with abscess Ulcerative colitis location: ulcerative pancolitis Qualified Code(s): K51.014 - Ulcerative (chronic) pancolitis with abscess
[2023-08-28] MEDS ORDERED: STOP CLINOLIPID SCH (22:00)
[2023-08-29] MEDS: PIPERACILLIN/TAZOBACTAM 4.5 GM in DEXTROSE 5% MINI-B 100 ML IV SCH ×2 (04:03→15:37)
[2023-08-29 07:08] LABS: Hematocrit (blood only) 25.1 % (42.0-52.0); Hemoglobin 7.8 g/dl (14.0-18.0); Mean Corpuscular Hemoglobin 29.5 pg (25.0-34.0); Mean Corpuscular Hgb Conc 31.1 g/dL (32.0-36.0); Mean Corpuscular Volume 95.1 fL (80.0-100.0); Mean Platelet Volume 10.3 fL (9.4-12.4); Platelet Count 268 K/uL (130-400); RDW Coefficient of Variation 16.3 % (11.5-14.5); RDW Standard Deviation 56.8 fL (36.4-46.3); Red Blood Count 2.64 M/uL (4.70-6.10)
[2023-08-29 08:54] LABS: BUN Creatinine Ratio 13.4 (10-20); Calcium 8.3 mg/dl (8.6-10.3); Creatinine Clr Calc Pharmacy 20.6 ml/min; Est GFR (African American) 20.6 ml/min; Est GFR (Non-African American) 17.8 ml/min; Potassium 3.9 mmol/L (3.5-5.1)
[2023-08-29 08:57] LABS: Albumin Globulin Ratio 0.8 (0.9-2); Albumin Level 2.5 gm/dl (3.4-5.0); Bilirubin,Total 0.4 mg/dl (0.2-1.0); Globulin 3.3 gm/dl (2.5-4.0); Magnesium 2.1 mg/dl (1.7-2.4); Phosphorus 1.5 mg/dl (2.5-4.9); Total Protein 5.8 gm/dl (6.0-8.3)
[2023-08-29] MEDS: THIAMINE HCL 100 MG TAB PO SCH ×2 (09:01→20:48)
[2023-08-29] MEDS: PANTOprazole 40 MG TAB PO SCH ×2 (09:01→20:48)
[2023-08-29] MEDS: QUEtiapine FUMARATE 25 MG TABLET PO SCH ×2 (09:01→20:49)
[2023-08-29] MEDS: METOPROLOL TARTRATE 25 MG TAB PO SCH ×2 (09:01→20:08)
[2023-08-29] MEDS ORDERED: SODIUM PHOSPHATE 3 MMOL/1 ML INFUSION IV STA (09:11)
--- NOTE | 2023-08-29 09:11 | Nephrology Progress Note ---
Date of Service August 29, 2023 Assessment & Plan (1) Acute kidney injury: Plan: * ATN due to sepsis, contrast induced nephropathy. 07/27/23 renal US and 08/09/[address] were negative for obstruction. Baseline Cr ~ 1.0 * 1st HD 08/12/23 via temporary femoral catheter * R IJ THC placed 08/16/[address] Kamara * Volume status and electrolyte balance are acceptable. No acute indication for HD today. Will reassess in am (2) Intra-abdominal abscess: Plan: * Remains on daptomycin, Zosyn, and fluconazole * 08/27/[address] abdominal [address] - thickening of small bowel suggestive of enteritis, 1.9 cm area within the wall of the stomach concerning for intramural abscess. Await ID recommendations * Remains on JAY but has started taking in oral diet (3) Hypertension: Plan: * BP is acceptable. Remains on metoprolol therapy Admission and Anticipated Discharge Date Admission Date: June 28, 2023 Subjective Mr. Deleon was evaluated in his hospital room this morning. He was last dialyzed 08/28/24 for 1 L UF. R IJ TCC required cath-magdiel prior to treatment. This morning Mr. Deleon reports that he is breathing comfortably flat in bed. He is now tolerating small amounts of an oral diet. He voiced no new medical concerns Review of Systems Constitutional: no fever Eyes: no problem reported Ear, Nose, Mouth, Throat: no problem reported Respiratory: no cough and no dyspnea Cardiovascular: no chest pain Gastrointestinal: no abdominal pain, no nausea, no vomiting and no diarrhea/loose stools Physical Exam Constitutional: + ill appearing and + cachectic; not in distress Eyes: PERRL, conjunctivae normal, anicteric sclerae ENMT: external ear and nose normal, oropharynx normal Neck: trachea midline, no thyromegaly Respiratory: normal respiratory effort, lungs clear to auscultation Auscultation: lungs clear to auscultation bilaterally Cardiovascular: RRR, no murmur, no edema Rate/Rhythm: regular rate and regular rhythm Extremities: no edema Gastrointestinal (Abdomen): Inspection/Auscultation: normal bowel sounds Neurologic: awake Results & Data Vital Signs (Past 12 Hours) Vital Signs Temp Pulse Pulse Resp BP Pulse Ox O2 Del Method 08/29/23 08:09 36.9 C 83 16 140/92 99 Room Air 08/29/23 07:45 76 08/29/23 04:04 36.5 C 95 H 16 145/94 H 100 Room Air 08/28/23 23:13 36.4 C L 90 24 147/83 H 98 Room Air 08/28/23 23:00 85 Laboratory Results Laboratory Results - last 24 hr 08/28/23 08/28/23 08/29/23 13:03 18:05 00:13 WBC RBC Hgb Hct MCV MCH MCHC RDW Std Deviation RDW Coeff of Ashley Plt Count MPV Sodium Potassium Chloride Carbon Dioxide Anion Gap BUN Creatinine Est Cr Clr Drug Dosing Est GFR ( Amer) Est GFR (Non-Af Amer) BUN/Creatinine Ratio Glucose POC Glucose 109 H 142 H 119 H Calcium Phosphorus Magnesium Total Bilirubin AST ALT Alkaline Phosphatase Total Protein Albumin Globulin Albumin/Globulin Ratio 08/29/23 08/29/23 08/29/23 06:26 06:43 08:17 WBC 4.50 L RBC 2.64 L Hgb 7.8 L Hct 25.1 L MCV 95.1 MCH 29.5 MCHC 31.1 L RDW Std Deviation 56.8 H RDW Coeff of Ashley 16.3 H Plt Count 268 MPV 10.3 Sodium Cancelled 138 Potassium Cancelled 3.9 Chloride Cancelled 108 H Carbon Dioxide Cancelled 22 Anion Gap Cancelled 8 BUN Cancelled 49 H Creatinine Cancelled 3.65 H D Est Cr Clr Drug Dosing Cancelled 20.6 Est GFR ( Amer) Cancelled 20.6 Est GFR (Non-Af Amer) Cancelled 17.8 BUN/Creatinine Ratio Cancelled 13.4 Glucose Cancelled 126 H POC Glucose 117 H Calcium Cancelled 8.3 L Phosphorus Cancelled 1.5 L* Magnesium Cancelled 2.1 Total Bilirubin Cancelled 0.4 AST Cancelled 49 H ALT Cancelled 43 Alkaline Phosphatase Cancelled 275 H Total Protein Cancelled 5.8 L Albumin Cancelled 2.5 L Globulin Cancelled 3.3 Albumin/Globulin Ratio Cancelled 0.8 L PG Care Time/CCT Total # of Minutes Spent Total Time Spent with Patient: Total time spent is greater than 50% in coordination of care (as documented) at patient's floor/unit and/or counseling patient: Coding Level of Care Code 82388 SUB INP/OBS CARE 3/50MIN Diagnoses Acute kidney injury N17.9 Intra-abdominal abscess K65.1 Hypertension I10
[2023-08-29] MEDS ORDERED: SODIUM PHOSPHATE 30 MMOL in SODIUM CHLORIDE 0.9% 500 ML IV ONE (09:30)
[2023-08-29] MEDS: FLUCONAZOLE 200 MG/100 ML BAG IV SCH (19:44)
[2023-08-29] MEDS: DAPTOmycin 600 MG in SYRINGE 0 ML IV SCH (19:44)
--- NOTE | 2023-08-29 22:39 | Hospitalist Progress Note ---
Date of Service August 29, 2023 Assessment & Plan (1) Acute kidney injury: Plan: First noted 07/25-maybe ATN due to poor po intake and previous sepsis, AIN from meds not likely as no WBCs on UA, could be OSWALDO from CT scans patient got volume overloaded with minimal response to several doses of IV diuretics Femoral vein temporary dialysis catheter placed and started on dialysis on 08/12, 08/13. continues on HD [employer] consult continuing -TIJ cath placed 08/16, had bleeding afterwards which is now stopped. Femoral line has since been removed -continue HD as per Nephro and will need HD set up at [facility], did a peer to peer discussion with Dr Friedman -Tried to transfer patient to tertiary center: For advanced IR. This was denied, due to lack of window to obtain fluid. In house and tertiary [facility] surgery reports they will not operate on patient as patient is clinically stable. Discussed with ID, continue antibiotics. GI reports no need for peg tube as patient's lack of intake is more behavior. His oral intake appears to be improving. (2) Perforated abdominal viscus: Plan: Patient with recent diagnosis of Ulcerative pancolitis, and had sessile polyp biopsied along with other biopsies on a colonoscopy during previous admission. Presented with free air, to OR 06/28/23 with subtotal colon resection with rectal stump remaining, and ileostomy. Three areas of perforation were identified, abscess and feculent material seen. Pseudomonas, Staphylococcus aureus, and Enterococcus faecium as well as Mariely albicans isolated. Repeat abdominal CT scan 07/19 shows persistent fluid collections consistent with abscess 07/23/2023 shows a leukocytosis hence the drain manipulation Repeat abdominal CT on 08/02 with improving size and multiple abscesses but still one that is large 9 cm- discussed with IR not possible as drain additional larger pocket as loculated other pockets too small Pt pulled out his LUQ drain on 08/17 due to encephalopathy. Repeat CT abd/pel 08/17 shows Persistent but not worsening abscesses IR attempted to place new drain on 08/18 without success Appreciate infectious disease recommendations -continue daptomycin, Zosyn, and renally adjusted fluconazole w/ reevaluation for likely extension with CT abd/pel q2-3 weeks-next CT should be around 09/01- 09/08 Switched cefepime to IV Zosyn 08/10 due to concern for cefepime induced neuro toxicity. - Discontinued metronidazole after completing course on 08/10 - Patient was started on Remeron for appetite stimulant and in case depression causing poor appetite -Check CK once weekly while on daptomycin, -changing wound vac q72h--> wound looks excellent (3) Encephalopathy: Plan: Acute encephalopathy, probably metabolic from hospital delirium, insomnia, thiamine deficiency/Wernicke's encephalopathy, renal failure, and possibly medication/antibiotic induced. Initial bout of encephalopathy previously resolved and then significantly worsened again with hyperactive delirium the week of 08/13.Was not sleeping well, hallucinating, delusional, had nystagmus No signs of new infection and repeat UA no infection, Ur cx no growth, improved with thiamine and Seroquel-> high dose thiamine on 08/19 and increased Seroquel to 50mg po bid CT abd/pel repeated 08/17 with improving abscesses except LUQ one same. Also with inflammation of bladder c/w cystitis Head CT scan negative and repeated on 08/20-again neg for acute Continue IM Zyprexa bid prn (but has not needed now in a few days) Continue Seroquel 25mg qAM and 50mg qhs--> ECG with mildly prolonged QTc-follow periodically while on diflucan Continue Remeron 15mg hs for improved sleep and appetite Gave IV ativan x 1 for hemodialysis on 08/17 and again 08/19 but would try to avoid further benzos if possible as this seemed to make him worse HD ongoing, antibiotic therapy ongoing Supportive care Received thiamine 500 Mg IV every 8 x 6 doses and converted to 200mg po bid x 1 month through 09/21/23 delirium continues intermittently using as needed Ativan and Haldol (4) Acute hypoxic respiratory failure: Plan: resolved, was 2/2 volume overload from pleural effusions from DERIK Recent echocardiogram on 06/21 showed normal EF TPN restarted on 08/24/1308/25/2023 due to 50 pound weight loss during the hospital stay. -still w/ pleural effusions (5) Acute blood loss anemia: Plan: Postoperatively from initial surgery, now anemia from renal failure, chronic disease as well, low but stable Then with active bleeding from TIJ site and hgb now down to 7.3, sinus tachycardia, worsening encephalopathy--> transfused 1 unit PRBCs with HD on 08/17 and now hgb up to 9.5 B12, folate, iron studies normal TSH mildly elevated and free T4 mildly low-follow Received 3 units of blood this admission (6) Hard of hearing: Plan: Supportive care, wears hearing device (7) Ulcerative colitis: Plan: Patient with ulcerative colitis diagnosed by colonoscopy in 06/2023 Now status post subtotal colectomy with only rectal stump remaining No treatment needed at this point but will need continued surveillance for colorectal CA of the rectal stump Will need follow-up with GI as an outpatient Plan Dispo-continued stay anticipate discharge this week Extensive discussion with the [facility] system -dialysis needs to be arranged at [facility]--> [id number] discussion with physicians at [facility] system which is a more about care home type convalescent facility than a robust medical facility, they are reluctant to take the patient in transfer. Admission and Anticipated Discharge Date Admission Date: June 28, 2023 Subjective Patient has been eating more today. Patient reports no new symptoms. Review of Systems Review of Systems: All systems reviewed & are unremarkable except as noted in HPI & below Physical Exam Physical Exam: His physical exam is little change he is in very little distress his ostomy is functioning well his lungs are clear and heart is regular Results & Data Results & Data Vital Signs (Past 12 Hours) Vital Signs Temp Pulse Resp BP Pulse Ox O2 Del Method 08/29/23 19:45 37.2 C 89 19 141/93 H 99 Room Air 08/29/23 15:55 36.6 C 89 17 139/94 100 Room Air 08/29/23 11:26 36.7 C 89 18 136/89 99 Room Air PG Care Time/CCT Total # of Minutes Spent Total Time Spent with Patient: Total time spent is greater than 50% in coordination of care (as documented) at patient's floor/unit and/or counseling patient: Coding Level of Care Code 64309 SUB INP/OBS CARE 2/35MIN Diagnoses Acute kidney injury N17.9 Perforated abdominal viscus R19.8 Encephalopathy G93.40 Acute hypoxic respiratory failure J96.01 Acute blood loss anemia D62 Bilateral hearing loss, unspecified hearing loss type H91.93 Hearing loss type: unspecified Laterality: bilateral Ulcerative pancolitis with abscess K51.014 Digestive disease complication type: with abscess Ulcerative colitis location: ulcerative pancolitis (6) Hard of hearing Hearing loss type: unspecified Laterality: bilateral Qualified Code(s): H91.93 - Unspecified hearing loss, bilateral (7) Ulcerative colitis Digestive disease complication type: with abscess Ulcerative colitis location: ulcerative pancolitis Qualified Code(s): K51.014 - Ulcerative (chronic) pancolitis with abscess
[2023-08-30] MEDS: PIPERACILLIN/TAZOBACTAM 4.5 GM in DEXTROSE 5% MINI-B 100 ML IV SCH ×2 (03:26→16:06)
[2023-08-30 06:54] LABS: Albumin Globulin Ratio 0.9 (0.9-2); Albumin Level 2.3 gm/dl (3.4-5.0); BUN Creatinine Ratio 12.7 (10-20); Bilirubin Direct 0.1 mg/dl (0-0.2); Bilirubin,Total 0.4 mg/dl (0.2-1.0); Calcium 7.9 mg/dl (8.6-10.3); Creatinine Clr Calc Pharmacy 15.9 ml/min; Est GFR (African American) 15.1 ml/min; Globulin 2.7 gm/dl (2.5-4.0); Magnesium 1.9 mg/dl (1.7-2.4); Potassium 4.2 mmol/L (3.5-5.1)
--- NOTE | 2023-08-30 07:43 | Infectious Disease Progress Nt ---
Date of Service August 30, 2023 Assessment & Plan (1) Encephalopathy: (2) Sepsis: (3) S/P colon resection: (4) Pneumoperitoneum: (5) Ulcerative colitis: (6) Perforated abdominal viscus: (7) Intra-abdominal abscess: Plan Adama Deleon is a 53-year-old man who is currently incarcerated with history of recently diagnosed with ulcerative pancolitis (recently on prednisone and mesalamine) who presented on 06/28/23 with abdominal pain and vomiting, found to have perforated viscus (multiple areas of perforation w/in the cecum/transverse/sigmoid colon) with pneumoperitoneum and secondary polymicrobial feculent peritonitis s/p ex-lap, subtotal colectomy, and ileostomy (06/28/23) and multiple intraabdominal abscesses. 06/18 abd fluid cx + Mariely albicans/dubliniensis, MSSA, PsA; repeat CT A/P 07/05 with persistent collections, s/p IR drainage of LUQ collection on 07/06, cx +PsA and VRE. Patient pulled out his LUQ drain on 08/17 which was unable to be replaced; CT A/P on 08/17 and 08/17 with improvement but persistent 8.2 x 2.4 cm LUQ collection. Continues on daptomycin, pip-tazo, and fluconazole. Repeat CT on 08/17 and 08/27 shows overall improvement in collections though still with 8x2 cm collection present. The patient pulled out his LUQ drain on 08/17 which was unable to be replaced. Was evaluated for tertiary care transferper tertiary IR, no accessible window. Per tertiary gen surg, would not operate on patient unless clinical instability. Given the lack of source control, he will continue to require a prolonged duration of antibiotics. Would continue IV antibiotics with serial reimaging every 2-4 weeks and interval reassessment to evaluate for improvement. If collections persist, he should be reevaluated after each imaging study to see if source control can be optimized (e.g., IR drainage including new drain, upsizing, and repositioning). Would continue daptomycin, pip-tazo, and fluconazole for coverage of MSSA, PsA, VRE, and Mariely. Would continue serial reimaging, with next CT potentially in another ~2 weeks (approx. first week of Sep 2023). Please reengage ID after imaging is performed. 08/27 QTc of 436 while on fluconazole. Please ensure close follow-up of renal function and ensure that antibiotics are appropriately renally dosed. ID Problem List: 1.Polymicrobial Feculent Peritonitis s/p ruptured viscous: MSSA, PsA, VRE, Mariely alb/dub 2.Multiple abdominal abscess s/p IR drain placement 3.Ulcerative Pancolitis 4.Leukocytosis Recommendations: - Continue antibiotics for at least another ~2-3 weeks (06/28/23 09/19/23) with reeimaging and reevaluation by ID prior to end of therapy: ---- daptomycin 600 mg IV Q48H (renally dosed) ---- pip-tazo 4.5 g IV Q12H (renally dosed) ---- fluconazole 200 mg IV daily (renally dosed), can change to PO if patient tolerating - Lab monitoring while on abx: weekly CBC w/ diff, CMP, CPK - Closely follow renal function to ensure antibiotics are dosed appropriately - Consider repeat CT A/P in ~2 weeks (first week of Sep 2023). If increasing fluid collections, would reengage IR for possible drain replacement. Please reengage ID after repeat imaging. Plan discussed with hospitalist. Thank you for letting ID participate in the care of this patient. ID will sign off at this time. If questions, please contact the [facility] call center at [phone]. Please reengage ID after repeat imaging in ~2 weeks. Camilla Hart MD, MHS Infectious Diseases [facility]/ID Connect ID Connect direct line: [phone] Admission and Anticipated Discharge Date Admission Date: June 28, 2023 Subjective This patient recommendation is based on a telemedicine consult request which was completed asynchronously through chart review and information provided by the primary physician. The patient was not seen or examined today. The evaluation is consultative in nature and all patient care and treatment decisions can either be accepted or rejected by the patient's primary hospital-based treating physician using their own independent medical judgment for their patient. Time Spent Reviewing Chart: 21 - 30 minutes - Per tertiary IR, no accessible window. Per tertiary gen surg, would not operate on patient unless clinical instability - Afebrile, WBC 4.5 on 08/29 - 08/27 QTc of 436 Results & Data Vital Signs (Past 12 Hours) Vital Signs Temp Pulse Pulse Pulse Resp BP Pulse Ox 08/30/23 03:40 36.8 C 75 16 161/99 H 96 08/29/23 23:37 37.0 C 80 12 132/88 99 08/29/23 23:00 80 08/29/23 20:00 08/29/23 19:45 37.2 C 89 19 141/93 H 99 O2 Del Method 08/30/23 03:40 Room Air 08/29/23 23:37 Room Air 08/29/23 23:00 08/29/23 20:00 Room Air 08/29/23 19:45 Room Air Diagnostic Findings Diagnostics: 08/27 CT A/P 1. Decrease in size in the small to moderate left pleural effusion. The right pleural effusion has resolved in the interval. 2. The left upper quadrant/perisplenic fluid collection is similar in size compared to the prior study. This measures 8.2 x 2.4 cm. 3. A few additional scattered smaller fluid collections within the abdomen seen on the prior studies have also decreased in size/resolved in the interval. 4. Rectal wall thickening which has improved. 5. Mild thickening of multiple small bowel loops within left side of the abdomen. This is consistent with a nonspecific enteritis. 6. A 1.9 cm hypodense focus which appears to be within the wall of the stomach. This is slightly increased in size compared to the prior study. This could represent a small intramural abscess. 7. Additional findings as described above. 08/17/[address] The left upper quadrant collection is similar in size and currently measures 8.2 x 2.4 cm. This study was performed for reevaluation of the collection to assess for possible repeat drain/catheter placement. However, the access window was considered too small to safely drain. Therefore, the procedure was not performed. 08/17/23 CT A/P 1. Significantly suboptimal examination without oral and IV contrast. 2. Again seen are numerous residual intra-abdominal fluid collections as detailed above which are typical for abscesses. These are overall similar in appearance to the 08/09/2023 examination. 3. A surgical drain is present within the largest collection in the left upper quadrant around the spleen. 4. Moderate pleural effusions with dependent consolidation. These are similar to previous. 5. The bladder wall appears circumferentially thickened with surrounding inflammation. Correlate with urinalysis. 6. Ventral abdominal wound/scar with postsurgical change from subtotal colectomy and right lower quadrant ileostomy. 7. Question wall thickening of the rectosigmoid stump. Correlate clinically. 8. Anasarca of the body wall. 9. Additional findings as above. 08/02 CT A/P Peritoneum: There is a wound in the infraumbilical abdominal wall. Again seen are numerous intraperitoneal fluid collections. A thick-walled gas and fluid containing crescentic collection in the left upper quadrant extending from the left hemidiaphragm to below the spleen has decreased in size from previous, measuring approximately 9 x 9 x 7 cm as seen on axial image #704 This contains a percutaneous drainage catheter. A small multiloculated fluid collection along the gastric fundus has also decreased in size from previous. The residual collection is not well visualized without IV contrast, likely measuring at least 3 cm as seen on image #57. A fluid collection below the gallbladder has also decreased in size. This measures up to 2.5 cm seen on image #144. A thick-walled gas and fluid containing collection in the pelvis above the sigmoid has decreased in size from previous. This measures approximately 2.5 x 1.5 x 5 cm. 1. Significantly suboptimal examination without oral and IV contrast. 2. There are numerous residual intra-abdominal fluid collections as detailed above which are typical for abscesses. These have significantly decreased in size as compared to 07/19/2023. 3. A surgical drain is present within the largest collection in the left upper quadrant around the spleen. 4. Small right and moderate left effusion with left basilar consolidation. These have increased in size to previous. 5. There is increasing body wall edema from previous. 6. Ventral abdominal wound with postsurgical change from subtotal colectomy and right lower quadrant ileostomy. 7. There is nonspecific gas within the bladder lumen. 8. Additional findings as above. 07/19 CT A/P 1. There are numerous large residual intra-abdominal fluid collections as above which are typical for abscesses. These have modestly decreased in size as compared to 07/10/2023. 2. A surgical drain is present within the largest collection in the left upper quadrant around the spleen. The surgical drain in the pelvis seen on 07/10/2023 has been removed. 3. Small to moderate left pleural effusion with left basilar consolidation. 4. Heterogeneous enhancement of both kidneys is nonspecific and can be seen with infection/pyelonephritis. Correlate with clinical findings/urinalysis. 5. Ventral abdominal wound with postsurgical change from subtotal colectomy and right lower quadrant ileostomy. 6. There is no bowel obstruction. 7. There is nonspecific gas within the bladder lumen. 8. Additional findings as above. Micro Summary: 08/20 UCx <1k 08/12 HbsAg neg, HBsAb 5 (low) 07/28 C3 88, C4 27 07/27/23 UCx NG 07/08 UCx NG 07/06 Abd fluid cx: PsA #1, PsA #2 (dailey-sensitive), VRE (S dapto, OSVALDO 4) 06/28 Abd fluid cx: PsA, C albicans/dub, MSSA 06/28 BCx x2: NG Antibiotic Summary: Daptomycin (07/12 present) Fluconazole (07/14- present) Zosyn (06/28-07/09, 07/22 07/28, 08/10-present) Prior Cefepime 06/28, 07/11-07/22, (07/28-08/10) metronidazole 06/28, 07/12- 07/22, (07/28-08/10) caspofungin 06/29-07/10 (5) Ulcerative colitis Digestive disease complication type: with abscess Ulcerative colitis location: ulcerative pancolitis Qualified Code(s): K51.014 - Ulcerative (chronic) pancolitis with abscess
[2023-08-30 08:22] LABS: Hematocrit (blood only) 26.2 % (42.0-52.0); Hemoglobin 8.3 g/dl (14.0-18.0); Mean Corpuscular Hemoglobin 28.8 pg (25.0-34.0); Mean Corpuscular Hgb Conc 31.7 g/dL (32.0-36.0); Mean Platelet Volume 10.8 fL (9.4-12.4); Platelet Count 279 K/uL (130-400); RDW Coefficient of Variation 16.1 % (11.5-14.5); RDW Standard Deviation 53.8 fL (36.4-46.3); Red Blood Count 2.88 M/uL (4.70-6.10); White Blood Count 4.87 K/ul (4.8-10.8)
[2023-08-30] MEDS: THIAMINE HCL 100 MG TAB PO SCH ×2 (08:45→21:08)
[2023-08-30] MEDS: METOPROLOL TARTRATE 25 MG TAB PO SCH ×2 (08:45→20:06)
[2023-08-30] MEDS: PANTOprazole 40 MG TAB PO SCH ×2 (08:45→21:07)
[2023-08-30] MEDS: QUEtiapine FUMARATE 25 MG TABLET PO SCH ×2 (08:45→21:08)
--- NOTE | 2023-08-30 08:49 | Nephrology Progress Note ---
Date of Service August 30, 2023 Assessment & Plan (1) Acute kidney injury: Plan: * ATN due to sepsis, contrast induced nephropathy. 07/27/23 renal US and 08/09/[address] were negative for obstruction. Baseline Cr ~ 1.0 * 1st HD 08/12/23 via temporary femoral catheter * R IJ THC placed 08/16/[address] Kamara * Volume status and electrolyte balance are acceptable. Will schedule next HD for am (2) Intra-abdominal abscess: Plan: * Remains on daptomycin, Zosyn, and fluconazole * 08/27/[address] - thickening of small bowel suggestive of enteritis, 1.9 cm area within the wall of the stomach concerning for intramural abscess * 08/30/23 ID recommendations: Continue current antibiotics through 09/19/23. Repeat CT A/P 1st week of Sep 2023. If increasing fluid collections, consult IR for drain replacement * Remains on JAY but has started taking in oral diet (3) Hypertension: Plan: * BP is acceptable. Remains on metoprolol therapy Admission and Anticipated Discharge Date Admission Date: June 28, 2023 Subjective Mr. Deleon was evaluated in his hospital room this morning. He was last dialyzed 08/28/24 for 1 L UF. R IJ TCC required cath-magdiel prior to treatment. This morning Mr. Deleon reports that he is breathing comfortably flat in bed. He is now tolerating small amounts of an oral diet. He voiced no new medical concerns Review of Systems Constitutional: no fever Eyes: no problem reported Ear, Nose, Mouth, Throat: no problem reported Respiratory: no cough and no dyspnea Cardiovascular: no chest pain Gastrointestinal: no abdominal pain, no nausea, no vomiting and no diarrhea/loose stools Musculoskeletal: + stiffness and + myalgia Physical Exam Constitutional: + ill appearing and + cachectic; not in distress Eyes: PERRL, conjunctivae normal, anicteric sclerae ENMT: external ear and nose normal, oropharynx normal Neck: trachea midline, no thyromegaly Respiratory: normal respiratory effort, lungs clear to auscultation Auscultation: lungs clear to auscultation bilaterally and + rales (at bases bilaterally) Cardiovascular: RRR, no murmur, no edema Rate/Rhythm: regular rate, regular rhythm and + tachycardic Extremities: no edema Gastrointestinal (Abdomen): Inspection/Auscultation: normal bowel sounds and + hypoactive bowel sounds Neurologic: awake Results & Data Vital Signs (Past 12 Hours) Vital Signs Temp Pulse Pulse Pulse Resp BP Pulse Ox 08/30/23 08:18 36.6 C 83 16 139/90 99 08/30/23 03:40 36.8 C 75 16 161/99 H 96 08/29/23 23:37 37.0 C 80 12 132/88 99 08/29/23 23:00 80 O2 Del Method 08/30/23 08:18 Room Air 08/30/23 03:40 Room Air 08/29/23 23:37 Room Air 08/29/23 23:00 Laboratory Results Laboratory Results - last 24 hr 08/29/23 08/30/23 08:17 06:21 WBC 4.87 RBC 2.88 L Hgb 8.3 L Hct 26.2 L MCV 91.0 MCH 28.8 MCHC 31.7 L RDW Std Deviation 53.8 H RDW Coeff of Ashley 16.1 H Plt Count 279 MPV 10.8 Sodium 138 139 Potassium 3.9 4.2 Chloride 108 H 111 H Carbon Dioxide 22 19 L Anion Gap 8 9 BUN 49 H 60 H Creatinine 3.65 H D 4.72 H* D Est Cr Clr Drug Dosing 20.6 15.9 Est GFR ( Amer) 20.6 15.1 Est GFR (Non-Af Amer) 17.8 13.0 BUN/Creatinine Ratio 13.4 12.7 Glucose 126 H 106 H Calcium 8.3 L 7.9 L Phosphorus 1.5 L* 4.0 D Magnesium 2.1 1.9 Total Bilirubin 0.4 0.4 Direct Bilirubin 0.1 AST 49 H 44 H ALT 43 44 Alkaline Phosphatase 275 H 266 H Total Protein 5.8 L 5.0 L Albumin 2.5 L 2.3 L Globulin 3.3 2.7 Albumin/Globulin Ratio 0.8 L 0.9 PG Care Time/CCT Total # of Minutes Spent Total Time Spent with Patient: Total time spent is greater than 50% in coordination of care (as documented) at patient's floor/unit and/or counseling patient: Coding Level of Care Code 88084 SUB INP/OBS CARE 3/50MIN Diagnoses Acute kidney injury N17.9 Intra-abdominal abscess K65.1 Hypertension I10
--- NOTE | 2023-08-30 11:54 | Pharmacy Report ---
Pharmacy PN Follow-up Note - Date of Service August 30, 2023 - Subjective Patient is currently on day #5 of TPN for prolonged NPO status/significant weight loss. - Objective Height & Weight (Last Documented) Height 5 ft 9 in Weight 62.7 kg Diet Order(s) 08/18/23 Lunch Diet Intake & Ouput (24hrs) 08/29/23 08/30/23 08/31/23 06:59 06:59 06:59 Intake Total 2124.2 / 2124.2 2401 / 2401 100 / 100 Output Total 975 / 975 225 / 225 Balance 1149.2 / 1149.2 2176 / 2176 100 / 100 Selected Laboratory Results 08/30/23 06:21 Sodium 139 Potassium 4.2 Chloride 111 H Carbon Dioxide 19 L Anion Gap 9 BUN 60 H Creatinine 4.72 H* D Est GFR ( Amer) 15.1 Est GFR (Non-Af Amer) 13.0 BUN/Creatinine Ratio 12.7 Glucose 106 H Calcium 7.9 L Phosphorus 4.0 D Magnesium 1.9 Total Bilirubin 0.4 AST 44 H ALT 44 Alkaline Phosphatase 266 H - Assessment & Plan Assessment: * 08/30: * TPN was held yesterday for hypophosphatemia (1.5 mg/dL). Received 30 mmol of Sodium Phosphate yesterday and phosphorus is 4.0 mg/dL this AM. * Other electrolytes review; only noted mild hyperchloremia and low serum CO2 . Will limit chloride in TPN as much as possible. * Per Nephrology: "Remains dialysis dependent. Please minimize volume as best you can." Next HD session scheduled for 08/31/23. * Will check triglycerides again Wednesday (09/01/23); TG have been elevated, likely unnecessary to hold unless > 400 per ASPEN recs * Patient is currently at target macronutrients per Dietary recs. Plan: * For Day #5 of TPN administration, the following will be ordered: * Macronutrients: * Amino Acids: 80 grams/day * Dextrose: 140 grams/day * Lipids: 40 grams/day * Micronutrients: * Sodium phosphate: 24 mMol/day * Sodium chloride: 20 mEq/day * Sodium acetate: 60 mEq/day * Potassium acetate: 10 mEq/day * Calcium gluconate: 4.65 mEq/day * Magnesium sulfate: 12.18 mEq/day * Multivitamins: 10 mL/day * Trace elements: 1 mL/day * Folic acid: 1 mg/day * Total volume of 1275.2 mL (1075.2 mL Clinimix + 200 mL Lipids) will be infused over 24 hours and will provide 1196 kcal/day * Labs will be ordered per PN protocol. * Pharmacy will follow and adjust PN orders on a daily basis. Thank you!
[2023-08-30] MEDS ORDERED: CLINOLIPID 20% IV FAT EMULSION 200 ML IV SCH (16:00)
[2023-08-30] MEDS ORDERED: [UNRECOGNIZED DRUG - OTHER] IV SCH (16:00)
[2023-08-30] MEDS ORDERED: CENTRAL TPN IV SCH (16:00)
[2023-08-30] MEDS: ACETAMINOPHEN 325 MG TAB PO PRN (18:58)
[2023-08-30] MEDS: FLUCONAZOLE 200 MG/100 ML BAG IV SCH (20:07)
[2023-08-30] MEDS ORDERED: STOP CLINOLIPID SCH (22:00)
[2023-08-31] MEDS: PIPERACILLIN/TAZOBACTAM 4.5 GM in DEXTROSE 5% MINI-B 100 ML IV SCH ×2 (04:59→16:09)
[2023-08-31] MEDS ORDERED: HEPARIN SOD (PORCINE) 1000 UNIT/ML IV ONE (07:00)
[2023-08-31] MEDS ORDERED: SODIUM CHLORIDE 0.9% 1,000 ML IV PRN (07:00)
[2023-08-31] MEDS ORDERED: EPOETIN ALFA 10,000 UNITS/ML VIAL IV ONE (07:00)
[2023-08-31 07:58] LABS: BUN Creatinine Ratio 13.8 (10-20); Calcium 8.1 mg/dl (8.6-10.3); Creatinine Clr Calc Pharmacy 14.4 ml/min; Est GFR (African American) 12.3 ml/min; Est GFR (Non-African American) 10.7 ml/min; Magnesium 2.1 mg/dl (1.7-2.4); Potassium 4.2 mmol/L (3.5-5.1)
[2023-08-31] MEDS: PANTOprazole 40 MG TAB PO SCH ×2 (08:37→21:16)
[2023-08-31] MEDS: QUEtiapine FUMARATE 25 MG TABLET PO SCH ×2 (08:38→21:16)
[2023-08-31] MEDS: THIAMINE HCL 100 MG TAB PO SCH ×2 (08:38→21:17)
[2023-08-31] MEDS: ALTEPLASE, RECOMBINANT 1 MG/ML 2ML VIAL INSTIL SCH ×2 (08:53→18:20)
--- NOTE | 2023-08-31 08:53 | Nephrology Progress Note ---
Date of Service August 31, 2023 Assessment & Plan (1) Acute kidney injury: Plan: * ATN due to sepsis, contrast induced nephropathy. 07/27/23 renal US and 08/09/[address] were negative for obstruction. Baseline Cr ~ 1.0 * 1st HD 08/12/23 via temporary femoral catheter * R IJ THC placed 08/16/[address] Kamara * Will provide HD today to maintain TTS schedule. Orders have been placed in EMR and HD Rn notified (2) Intra-abdominal abscess: Plan: * Remains on daptomycin, Zosyn, and fluconazole * 08/27/[address] - thickening of small bowel suggestive of enteritis, 1.9 cm area within the wall of the stomach concerning for intramural abscess * 08/30/23 ID recommendations: Continue current antibiotics through 09/19/23. Repeat CT A/P 1st week of Sep 2023. If increasing fluid collections, consult IR for drain replacement * Remains on JAY but has started taking in oral diet (3) Hypertension: Plan: * BP is acceptable. Remains on metoprolol therapy Admission and Anticipated Discharge Date Admission Date: June 28, 2023 Subjective Mr. Deleon was evaluated in his hospital room this morning. This morning Mr. Deleon reports that he is breathing comfortably flat in bed. He is now tolerating small amounts of an oral diet. He voiced no new medical concerns Review of Systems Constitutional: no fever Eyes: no problem reported Ear, Nose, Mouth, Throat: no problem reported Respiratory: no cough and no dyspnea Cardiovascular: no chest pain Gastrointestinal: no abdominal pain, no nausea, no vomiting and no diarrhea /loose stools Musculoskeletal: + stiffness and + myalgia Physical Exam Constitutional: + ill appearing and + cachectic; not in distress Eyes: PERRL, conjunctivae normal, anicteric sclerae ENMT: external ear and nose normal, oropharynx normal Neck: trachea midline, no thyromegaly Respiratory: normal respiratory effort, lungs clear to auscultation Auscultation: lungs clear to auscultation bilaterally and + rales (at bases bilaterally) Cardiovascular: RRR, no murmur, no edema Rate/Rhythm: regular rate, regular rhythm and + tachycardic Extremities: no edema Gastrointestinal (Abdomen): Inspection/Auscultation: normal bowel sounds Neurologic: awake Results & Data Vital Signs (Past 12 Hours) Vital Signs Temp Pulse Pulse Resp BP Pulse Ox O2 Del Method 08/31/23 07:36 73 08/31/23 07:26 36.6 C 68 17 145/88 H 99 Room Air 08/31/23 03:46 36.3 C L 68 16 147/81 H 100 Room Air 08/30/23 23:58 36.5 C 70 16 151/84 H 99 Room Air 08/30/23 23:00 82 Laboratory Results Laboratory Results - last 24 hr 08/31/23 07:17 Sodium 137 Potassium 4.2 Chloride 109 H Carbon Dioxide 18 L Anion Gap 10 BUN 77 H Creatinine 5.57 H* D Est Cr Clr Drug Dosing 14.4 Est GFR ( Amer) 12.3 Est GFR (Non-Af Amer) 10.7 BUN/Creatinine Ratio 13.8 Glucose 134 H Calcium 8.1 L Phosphorus 5.0 H D Magnesium 2.1 PG Care Time/CCT Total # of Minutes Spent Total Time Spent with Patient: Total time spent is greater than 50% in coordination of care (as documented) at patient's floor/unit and/or counseling patient: Coding Level of Care Code 91321 SUB INP/OBS CARE 3/50MIN Diagnoses Acute kidney injury N17.9 Intra-abdominal abscess K65.1 Hypertension I10
--- NOTE | 2023-08-31 09:01 | Hospitalist Progress Note ---
Date of Service August 30, 2023 Assessment & Plan (1) Acute kidney injury: Plan: First noted 07/25-maybe ATN due to poor po intake and previous sepsis, AIN from meds not likely as no WBCs on UA, could be OSWALDO from CT scans patient got volume overloaded with minimal response to several doses of IV diuretics Femoral vein temporary dialysis catheter placed and started on dialysis on 08/12, 08/13. continues on HD [employer] consult continuing -TIJ cath placed 08/16, had bleeding afterwards which is now stopped. Femoral line has since been removed -continue HD as per Nephro and will need HD set up at assisted, did a peer to peer discussion with Dr Friedman -Tried to transfer patient to tertiary center: For advanced IR. This was denied, due to lack of window to obtain fluid. In house and tertiary [facility] surgery reports they will not operate on patient as patient is clinically stable. Discussed with ID, continue antibiotics. GI reports no need for peg tube as patient's lack of intake is more behavior. His oral intake appears to be improving. Patient had 75% of meals today. (2) Perforated abdominal viscus: Plan: Patient with recent diagnosis of Ulcerative pancolitis, and had sessile polyp biopsied along with other biopsies on a colonoscopy during previous admission. Presented with free air, to OR 06/28/23 with subtotal colon resection with rectal stump remaining, and ileostomy. Three areas of perforation were identified, abscess and feculent material seen. Pseudomonas, Staphylococcus aureus, and Enterococcus faecium as well as Mariely albicans isolated. Repeat abdominal CT scan 07/19 shows persistent fluid collections consistent with abscess 07/23/2023 shows a leukocytosis hence the drain manipulation Repeat abdominal CT on 08/02 with improving size and multiple abscesses but still one that is large 9 cm- discussed with IR not possible as drain additional larger pocket as loculated other pockets too small Pt pulled out his LUQ drain on 08/17 due to encephalopathy. Repeat CT abd/pel 08/17 shows Persistent but not worsening abscesses IR attempted to place new drain on 08/18 without success Appreciate infectious disease recommendations -continue daptomycin, Zosyn, and renally adjusted fluconazole w/ reevaluation for likely extension with CT abd/pel q2-3 weeks-next CT should be around 09/01- 09/08 Switched cefepime to IV Zosyn 08/10 due to concern for cefepime induced neurotoxicity. - Discontinued metronidazole after completing course on 08/10 - Patient was started on Remeron for appetite stimulant and in case depression causing poor appetite -Check CK once weekly while on daptomycin, -changing wound vac q72h--> wound looks excellent (3) Encephalopathy: Plan: Acute encephalopathy, probably metabolic from hospital delirium, insomnia, thiamine deficiency/Wernicke's encephalopathy, renal failure, and possibly medication/antibiotic induced. Initial bout of encephalopathy previously resolved and then significantly worsened again with hyperactive delirium the week of 08/13.Was not sleeping well, hallucinating, delusional, had nystagmus No signs of new infection and repeat UA no infection, Ur cx no growth, improved with thiamine and Seroquel-> high dose thiamine on 08/19 and increased Seroquel to 50mg po bid CT abd/pel repeated 08/17 with improving abscesses except LUQ one same. Also with inflammation of bladder c/w cystitis Head CT scan negative and repeated on 08/20-again neg for acute Continue IM Zyprexa bid prn (but has not needed now in a few days) Continue Seroquel 25mg qAM and 50mg qhs--> ECG with mildly prolonged QTc-follow periodically while on diflucan Continue Remeron 15mg hs for improved sleep and appetite Gave IV ativan x 1 for hemodialysis on 08/17 and again 08/19 but would try to avoid further benzos if possible as this seemed to make him worse HD ongoing, antibiotic therapy ongoing Supportive care Received thiamine 500 Mg IV every 8 x 6 doses and converted to 200mg po bid x 1 month through 09/21/23 delirium continues intermittently using as needed Ativan and Haldol (4) Acute hypoxic respiratory failure: Plan: resolved, was 2/2 volume overload from pleural effusions from DERIK Recent echocardiogram on 06/21 showed normal EF TPN restarted on 08/24/1308/25/2023 due to 50 pound weight loss during the hospital stay. -still w/ pleural effusions (5) Acute blood loss anemia: Plan: Postoperatively from initial surgery, now anemia from renal failure, chronic disease as well, low but stable Then with active bleeding from TIJ site and hgb now down to 7.3, sinus tachycardia, worsening encephalopathy--> transfused 1 unit PRBCs with HD on 08/17 and now hgb up to 9.5 B12, folate, iron studies normal TSH mildly elevated and free T4 mildly low-follow Received 3 units of blood this admission (6) Hard of hearing: Plan: Supportive care, wears hearing device (7) Ulcerative colitis: Plan: Patient with ulcerative colitis diagnosed by colonoscopy in 06/2023 Now status post subtotal colectomy with only rectal stump remaining No treatment needed at this point but will need continued surveillance for colorectal CA of the rectal stump Will need follow-up with GI as an outpatient Plan Dispo-continued stay anticipate discharge this week Extensive discussion with the assisted system -dialysis needs to be arranged at assisted system--> [id number] discussion with physicians at [facility] system which is a more about fci type convalescent facility than a robust medical facility, they are reluctant to take the patient in transfer. Admission and Anticipated Discharge Date Admission Date: June 28, 2023 Subjective Discussed with nursing staff Review of Systems Review of Systems: All systems reviewed & are unremarkable except as noted in HPI & below Physical Exam Physical Exam: His physical exam is little change No distress. his ostomy is functioning well his lungs are clear and heart is regular Results & Data Results & Data Vital Signs (Past 12 Hours) Vital Signs Temp Pulse Pulse Resp BP Pulse Ox O2 Del Method 08/31/23 07:36 73 08/31/23 07:26 36.6 C 68 17 145/88 H 99 Room Air 08/31/23 03:46 36.3 C L 68 16 147/81 H 100 Room Air 08/30/23 23:58 36.5 C 70 16 151/84 H 99 Room Air 08/30/23 23:00 82 PG Care Time/CCT Total # of Minutes Spent Total Time Spent with Patient: Total time spent is greater than 50% in coordination of care (as documented) at patient's floor/unit and/or counseling patient: Coding Level of Care Code 11332 SUB INP/OBS CARE 2/35MIN Diagnoses Acute kidney injury N17.9 Perforated abdominal viscus R19.8 Encephalopathy G93.40 Acute hypoxic respiratory failure J96.01 Acute blood loss anemia D62 Bilateral hearing loss, unspecified hearing loss type H91.93 Hearing loss type: unspecified Laterality: bilateral Ulcerative pancolitis with abscess K51.014 Ulcerative colitis location: ulcerative pancolitis Digestive disease complication type: with abscess (6) Hard of hearing Hearing loss type: unspecified Laterality: bilateral Qualified Code(s): H91.93 - Unspecified hearing loss, bilateral (7) Ulcerative colitis Ulcerative colitis location: ulcerative pancolitis Digestive disease c omplication type: with abscess Qualified Code(s): K51.014 - Ulcerative (chronic) pancolitis with abscess
[2023-08-31] MEDS ORDERED: ALTEPLASE, RECOMBINANT 1 MG/ML 2ML VIAL INSTIL ONE ×2 (09:45)
--- NOTE | 2023-08-31 11:02 | Communication Note ---
Date of Service: August 31, 2023 Received request from nephrology for permcath exchange d/t malfunctioning permcath. Discussed with Dr Kamara, planning on tomorrow afternoon.
[2023-08-31] MEDS: METOPROLOL TARTRATE 25 MG TAB PO SCH ×2 (11:21→21:16)
[2023-08-31] MEDS ORDERED: [UNRECOGNIZED DRUG - OTHER] IV SCH (16:00)
[2023-08-31] MEDS ORDERED: CLINOLIPID 20% IV FAT EMULSION 200 ML IV SCH (16:00)
[2023-08-31] MEDS ORDERED: CENTRAL TPN IV SCH (16:00)
[2023-08-31] MEDS: HEPARIN SOD (PORCINE) 1000 UNIT/ML IV SCH ×2 (18:20→18:21)
[2023-08-31] MEDS: DAPTOmycin 600 MG in SYRINGE 0 ML IV SCH (22:20)
[2023-08-31] MEDS: FLUCONAZOLE 200 MG/100 ML BAG IV SCH (22:20)
--- NOTE | 2023-08-31 22:24 | Hospitalist Progress Note ---
Date of Service August 31, 2023 Assessment & Plan (1) Acute kidney injury: Plan: First noted 07/25-maybe ATN due to poor po intake and previous sepsis, AIN from meds not likely as no WBCs on UA, could be OSWALDO from CT scans patient got volume overloaded with minimal response to several doses of IV diuretics Femoral vein temporary dialysis catheter placed and started on dialysis on 08/12, 08/13. continues on HD T[employer]Sat [employer] Operator consult continuing -TIJ cath placed 08/16, had bleeding afterwards which is now stopped. Femoral line has since been removed -continue HD as per Nephro and will need HD set up at assisted, did a peer to peer discussion with Dr Friedman -Tried to transfer patient to tertiary center: For advanced IR. This was denied, due to lack of window to obtain fluid. In house and [facility] surgery reports they will not operate on patient as patient is clinically stable. Discussed with ID, continue antibiotics. GI reports no need for peg tube as patient's lack of intake is more behavior. His oral intake appears to be improving. Patient has been eating much better over past few days. PICC line are blocked.DId not improved with clot busting treatment. PAtient janeth need replacement cath for dialysis. Reconsulted vascular surgeron on 08/31 (2) Perforated abdominal viscus: Plan: Patient with recent diagnosis of Ulcerative pancolitis, and had sessile polyp biopsied along with other biopsies on a colonoscopy during previous admission. Presented with free air, to OR 06/28/23 with subtotal colon resection with rectal stump remaining, and ileostomy. Three areas of perforation were identified, abscess and feculent material seen. Pseudomonas, Staphylococcus aureus, and Enterococcus faecium as well as Mariely albicans isolated. Repeat abdominal CT scan 07/19 shows persistent fluid collections consistent with abscess 07/23/2023 shows a leukocytosis hence the drain manipulation Repeat abdominal CT on 08/02 with improving size and multiple abscesses but still one that is large 9 cm- discussed with IR not possible as drain additional larger pocket as loculated other pockets too small Pt pulled out his LUQ drain on 08/17 due to encephalopathy. Repeat CT abd/pel 08/17 shows Persistent but not worsening abscesses IR attempted to place new drain on 08/18 without success Appreciate infectious disease recommendations -continue daptomycin, Zosyn, and renally adjusted fluconazole w/ reevaluation for likely extension with CT abd/pel q2-3 weeks-next CT should be around 09/01- 09/08 Switched cefepime to IV Zosyn 08/10 due to concern for cefepime induced neurotoxicity. - Discontinued metronidazole after completing course on 08/10 - Patient was started on Remeron for appetite stimulant and in case depression causing poor appetite -Check CK once weekly while on daptomycin, -changing wound vac q72h--> wound looks excellent (3) Encephalopathy: Plan: Acute encephalopathy, probably metabolic from hospital delirium, insomnia, thiamine deficiency/Wernicke's encephalopathy, renal failure, and possibly medication/antibiotic induced. Initial bout of encephalopathy previously resolved and then significantly worsened again with hyperactive delirium the week of 08/13.Was not sleeping well, hallucinating, delusional, had nystagmus No signs of new infection and repeat UA no infection, Ur cx no growth, improved with thiamine and Seroquel-> high dose thiamine on 08/19 and increased Seroquel to 50mg po bid CT abd/pel repeated 08/17 with improving abscesses except LUQ one same. Also with inflammation of bladder c/w cystitis Head CT scan negative and repeated on 08/20-again neg for acute Continue IM Zyprexa bid prn (but has not needed now in a few days) Continue Seroquel 25mg qAM and 50mg qhs--> ECG with mildly prolonged QTc-follow periodically while on diflucan Continue Remeron 15mg hs for improved sleep and appetite Gave IV ativan x 1 for hemodialysis on 08/17 and again 08/19 but would try to avoid further benzos if possible as this seemed to make him worse HD ongoing, antibiotic therapy ongoing Supportive care Received thiamine 500 Mg IV every 8 x 6 doses and converted to 200mg po bid x 1 month through 09/21/23 delirium continues intermittently using as needed Ativan and Haldol (4) Acute hypoxic respiratory failure: Plan: resolved, was 2/2 volume overload from pleural effusions from DERIK Recent echocardiogram on 06/21 showed normal EF TPN restarted on 08/24/1308/25/2023 due to 50 pound weight loss during the hospital stay. -still w/ pleural effusions (5) Acute blood loss anemia: Plan: Postoperatively from initial surgery, now anemia from renal failure, chronic disease as well, low but stable Then with active bleeding from TIJ site and hgb now down to 7.3, sinus tachycardia, worsening encephalopathy--> transfused 1 unit PRBCs with HD on 08/17 and now hgb up to 9.5 B12, folate, iron studies normal TSH mildly elevated and free T4 mildly low-follow Received 3 units of blood this admission (6) Hard of hearing: Plan: Supportive care, wears hearing device (7) Ulcerative colitis: Plan: Patient with ulcerative colitis diagnosed by colonoscopy in 06/2023 Now status post subtotal colectomy with only rectal stump remaining No treatment needed at this point but will need continued surveillance for colorectal CA of the rectal stump Will need follow-up with GI as an outpatient Plan Dispo-continued stay anticipate discharge this week Extensive discussion with the assisted system -dialysis needs to be arranged at assisted system--> [id number] discussion with physicians at [facility] system which is a more about fci type convalescent facility than a robust medical facility, they are reluctant to take the patient in transfer. Admission and Anticipated Discharge Date Admission Date: June 28, 2023 Subjective Patient reports no new symptoms. Review of Systems Review of Systems: All systems reviewed & are unremarkable except as noted in HPI & below Physical Exam Physical Exam: His physical exam is little change No distress. his ostomy is functioning well his lungs are clear and heart is regular Results & Data Results & Data Vital Signs (Past 12 Hours) Vital Signs Temp Pulse Pulse Pulse Resp BP Pulse Ox 08/31/23 21:15 36.6 C 82 16 165/86 H 99 08/31/23 18:03 36.6 C 75 16 162/86 H 99 08/31/23 15:57 36.7 C 75 18 139/82 99 08/31/23 15:21 68 08/31/23 11:19 36.6 C 82 16 150/84 H 100 O2 Del Method 08/31/23 21:15 Room Air 08/31/23 18:03 Room Air 08/31/23 15:57 Room Air 08/31/23 15:21 08/31/23 11:19 Room Air PG Care Time/CCT Total # of Minutes Spent Total Time Spent with Patient: Total time spent is greater than 50% in coordination of care (as documented) at patient's floor/unit and/or counseling patient: Coding Level of Care Code 05624 SUB INP/OBS CARE 2/35MIN Diagnoses Acute kidney injury N17.9 Perforated abdominal viscus R19.8 Encephalopathy G93.40 Acute hypoxic respiratory failure J96.01 Acute blood loss anemia D62 Bilateral hearing loss, unspecified hearing loss type H91.93 Hearing loss type: unspecified Laterality: bilateral Ulcerative pancolitis with abscess K51.014 Digestive disease complication type: with abscess Ulcerative colitis location: ulcerative pancolitis (6) Hard of hearing Hearing loss type: unspecified Laterality: bilateral Qualified Code(s): H91.93 - Unspecified hearing loss, bilateral (7) Ulcerative colitis Digestive disease complication type: with abscess Ulcerative colitis location: ulcerative pancolitis Qualified Code(s): K51.014 - Ulcerative (chronic) pancolitis with abscess
[2023-08-31] MEDS: STOP CLINOLIPID SCH ×2 (23:42→23:56)
[2023-09-01] MEDS: PIPERACILLIN/TAZOBACTAM 4.5 GM in DEXTROSE 5% MINI-B 100 ML IV SCH ×2 (04:22→15:01)
[2023-09-01] MEDS ORDERED: SODIUM CHLORIDE 0.9% 1,000 ML IV PRN (07:00)
[2023-09-01 08:17] LABS: Anion Gap 11 (3-11); BUN Creatinine Ratio 15.1 (10-20); Blood Urea Nitrogen 94 mg/dl (6-23); Calcium 8.2 mg/dl (8.6-10.3); Carbon Dioxide 18 mmol/L (21-32); Chloride 109 mmol/L (98-107); Creatine Kinase < 10 U/L (30-223); Creatinine Clr Calc Pharmacy 12.9 ml/min; Est GFR (African American) 10.8 ml/min; Est GFR (Non-African American) 9.3 ml/min; Glucose 129 mg/dl (70-99(Fasting)); Magnesium 2.3 mg/dl (1.7-2.4); Phosphorus 4.4 mg/dl (2.5-4.9); Sodium 138 mmol/L (136-145); Triglycerides 253 mg/dl (0-150)
[2023-09-01] MEDS: METOPROLOL TARTRATE 25 MG TAB PO SCH ×2 (08:29→21:36)
[2023-09-01] MEDS: PANTOprazole 40 MG TAB PO SCH ×2 (08:29→21:37)
[2023-09-01] MEDS: THIAMINE HCL 100 MG TAB PO SCH ×2 (08:29→21:37)
[2023-09-01] MEDS: QUEtiapine FUMARATE 25 MG TABLET PO SCH ×2 (08:30→21:37)
--- NOTE | 2023-09-01 08:48 | Nephrology Progress Note ---
Date of Service September 01, 2023 Assessment & Plan (1) Acute kidney injury: Plan: * ATN due to sepsis, contrast induced nephropathy. 07/27/23 renal US and 08/09/[address] were negative for obstruction. Baseline Cr ~ 1.0 * 1st HD 08/12/23 via temporary femoral catheter * R IJ TCC placed 08/16/[address] Kamara * TCC did not function yesterday. HD was cancelled. Patient to have new dialysis catheter placed today followed by HD. Orders have been placed in EMR and HD RN notified (2) Intra-abdominal abscess: Plan: * Remains on daptomycin, Zosyn, and fluconazole * 08/27/[address] - thickening of small bowel suggestive of enteritis, 1.9 cm area within the wall of the stomach concerning for intramural abscess * 08/30/23 ID recommendations: Continue current antibiotics through 09/19/23. Repeat CT A/P 1st week of Sep 2023. If increasing fluid collections, consult IR for drain replacement * Remains on JAY but is tolerating small amounts of oral diet (3) Hypertension: Plan: * BP is acceptable. Remains on metoprolol therapy Admission and Anticipated Discharge Date Admission Date: June 28, 2023 Subjective Mr. Deleon was evaluated in his hospital room this morning. IJ TCC did not function yesterday. Dialysis could not be performed. Mr. Deleon is awaiting new IJ TCC placement. He is anxious to resume his diet Review of Systems Constitutional: no fever Eyes: no problem reported Ear, Nose, Mouth, Throat: no problem reported Respiratory: no cough and no dyspnea Cardiovascular: no chest pain Gastrointestinal: no abdominal pain, no nausea, no vomiting and no diarrhea/loose stools Musculoskeletal: + stiffness and + myalgia Physical Exam Constitutional: + ill appearing and + cachectic; not in distress Eyes: PERRL, conjunctivae normal, anicteric sclerae ENMT: external ear and nose normal, oropharynx normal Neck: trachea midline, no thyromegaly Respiratory: normal respiratory effort, lungs clear to auscultation Auscultation: lungs clear to auscultation bilaterally Cardiovascular: RRR, no murmur, no edema Rate/Rhythm: regular rate and regular rhythm Extremities: no edema Gastrointestinal (Abdomen): Inspection/Auscultation: normal bowel sounds Neurologic: awake Results & Data Vital Signs (Past 12 Hours) Vital Signs Temp Pulse Resp BP Pulse Ox O2 Del Method 09/01/23 07:36 36.4 C L 78 18 151/82 H 98 Room Air 08/31/23 21:20 Room Air 08/31/23 21:15 36.6 C 82 16 165/86 H 99 Room Air Laboratory Results Laboratory Results - last 24 hr 09/01/23 07:27 Sodium 138 Potassium 4.0 Chloride 109 H Carbon Dioxide 18 L Anion Gap 11 BUN 94 H Creatinine 6.23 H* D Est Cr Clr Drug Dosing 12.9 Est GFR ( Amer) 10.8 Est GFR (Non-Af Amer) 9.3 BUN/Creatinine Ratio 15.1 Glucose 129 H Calcium 8.2 L Phosphorus 4.4 Magnesium 2.3 Total Creatine Kinase < 10 L Triglycerides 253 H PG Care Time/CCT Total # of Minutes Spent Total Time Spent with Patient: Total time spent is greater than 50% in coordination of care (as documented) at patient's floor/unit and/or counseling patient: Coding Level of Care Code 84949 SUB INP/OBS CARE 3/50MIN Diagnoses Acute kidney injury N17.9 Intra-abdominal abscess K65.1 Hypertension I10
[2023-09-01] MEDS: SODIUM CHLORIDE 0.9% 1,000 ML IV SCH (11:34)
[2023-09-01] MEDS ORDERED: MIDAZOLAM HCL 1 MG/ML 2ML VIAL ONE (12:30)
[2023-09-01] MEDS ORDERED: HEPARIN SOD (PORCINE) 5,000 UNITS/ML VIAL ONE (12:31)
[2023-09-01] MEDS ORDERED: fentaNYL citrate PF 100 MCG/2 ML VIAL ONE (12:31)
[2023-09-01] MEDS ORDERED: LIDOCAINE 1% LOCAL 20 ML VIAL ONE (12:31)
--- NOTE | 2023-09-01 12:47 | Pre Anesthesia Assessment ---
Date of Service September 01, 2023 Pre Sedation Assessment Vital Signs Temp Pulse Pulse Pulse Resp BP Pulse Ox 09/01/23 11:22 36.6 C 74 16 153/92 H 99 09/01/23 07:36 36.4 C L 78 18 151/82 H 98 08/31/23 21:20 08/31/23 21:15 36.6 C 82 16 165/86 H 99 08/31/23 18:03 36.6 C 75 16 162/86 H 99 08/31/23 15:57 36.7 C 75 18 139/82 99 08/31/23 15:21 68 O2 Del Method 09/01/23 11:22 Room Air 09/01/23 07:36 Room Air 08/31/23 21:20 Room Air 08/31/23 21:15 Room Air 08/31/23 18:03 Room Air 08/31/23 15:57 Room Air 08/31/23 15:21 Cardiovascular RRR, no murmur, no edema Respiratory normal respiratory effort, lungs clear to auscultation Pre-Sedation Airway Assessment Smoking Status: Unknown if ever smoked Hx Sleep Apnea: No Short, Thick Neck: No Thyromental Distance: > or= 3.5 Finger Breadths Oral Cavity: + WNL Mallampati Class: III ASA: ASA3 NPO Status Date of Last Intake of Fluids: 08/31/23 Time of Last Intake of Fluids: 22:00 Date of Last Intake of Solid Food: 08/31/23 Time of Last Intake of Solid Foods: 21:00 Procedure Planning Contraindications for Sedation: none Current Medications Reviewed: Yes Notes The planned sedation has been discussed with the patient. Informed Consent was obtained. I have identified the patient, determined the appropriateness of sedation and have assessed the patient immediately prior to the procedure. All medicine(s) and interventions are by my order.
--- NOTE | 2023-09-01 12:47 | History & Physical Bridge Note ---
Date of Service September 01, 2023 History & Physical Bridge Note Patient for permcath exchange. I have discussed the risks options and benefits of the procedure with the patient. The patient understands the risks options and benefits and agrees to the procedure. I have examined the patient, reviewed the History & Physical and in the interval since the performance of the History & Physical I have noted the following changes of clinical significance: no changes noted
--- NOTE | 2023-09-01 13:59 | Post Anesthesia Assessment ---
Date of Service September 01, 2023 Post Sedation Assessment Vital Signs Temp Pulse Pulse Pulse Resp BP Pulse Ox 09/01/23 13:55 80 18 145/88 H 100 09/01/23 13:50 80 18 149/90 H 100 09/01/23 13:45 80 18 143/90 H 100 09/01/23 13:40 80 18 139/90 100 09/01/23 13:35 80 18 133/89 100 09/01/23 13:30 80 18 141/90 H 100 09/01/23 13:25 74 18 137/88 100 09/01/23 13:20 74 18 140/88 100 09/01/23 13:15 74 18 143/94 H 100 09/01/23 13:10 74 18 143/90 H 100 09/01/23 11:22 36.6 C 74 16 153/92 H 99 09/01/23 07:36 36.4 C L 78 18 151/82 H 98 08/31/23 21:20 08/31/23 21:15 36.6 C 82 16 165/86 H 99 08/31/23 18:03 36.6 C 75 16 162/86 H 99 08/31/23 15:57 36.7 C 75 18 139/82 99 08/31/23 15:21 68 O2 Del Method O2 Flow Rate 09/01/23 13:55 Room Air 09/01/23 13:50 Oxymask 4 09/01/23 13:45 Oxymask 4 09/01/23 13:40 Oxymask 4 09/01/23 13:35 Oxymask 4 09/01/23 13:30 Oxymask 4 09/01/23 13:25 Oxymask 4 09/01/23 13:20 Oxymask 4 09/01/23 13:15 Oxymask 4 09/01/23 13:10 Oxymask 4 09/01/23 11:22 Room Air 09/01/23 07:36 Room Air 08/31/23 21:20 Room Air 08/31/23 21:15 Room Air 08/31/23 18:03 Room Air 08/31/23 15:57 Room Air 08/31/23 15:21 Recovery Score Activity: Moves 4 extremities Respiration: Deep Breath/Cough Circulation: +/-20% PreAnes Value Consciousness: Fully Awake Oxygen Saturation: > 92% On Room Air Post Anesthesia Score: 10 Discharge Sedation Level of Care: Fast Track Phase II Post Sedation Plan On clinical assessment, the patient appears to have tolerated the sedation without complications. Patient is recovering as anticipated. Patient will continue to be monitored by nursing and may be discharged when sedation discharge criteria are met per below protocol. Upon Completions of procedure up to 15 minutes continue every 5 minute vital signs and the P.A.R. score; then discharge to a Phase I or Fast Track to Phase II per the following guidelines: * Discharge Patient to appropriate Phase II area if PAR is 8 or greater or return to pre- procedure baseline. The post - procedure orders will be as directed. * If PAR score is less than 8 or not return to pre-procedure baseline then patient will follow Phase I monitoring till PAR is reached for Phase II. The Phase I may be done in procedure room or may call to secure a Phase I area. * If naloxone or flumazenil are used for reversal, hold in Phase I for continued monitoring from when last reversal dose was given for a minimum of 60 minutes or longer pending the nurse and/or physician discretion of patient condition before discharge to Phase II. Please call the Sedation Physician to re-evaluate and complete post-note for discharge to Phase II area. Do NOT discharge from procedure sedation or Phase 1 until post- sedation evaluation note is complete by procedure /sedation MD Sedation Discharge Instructions to be given to the patient at discharge to home.
--- NOTE | 2023-09-01 13:59 | Operative Report ---
Post Operative Report Pre & Post Diagnosis Operation Date: 09/01/23 12:30 Pre-Op Diagnosis: Malfunctioning Perm Cath Post-Op Diagnosis: Malfunctioning Perm Cath I identified the patient and participated in the time-out.: Yes Procedure Operation Date: 09/01/23 12:30 Actual Procedures p Perm Catheter Placement, Perm Cath Removal, Right Internal Jugular Approach, Ultrasound Localization of Right Internal Jugular Vein, Fluorosocpy for Positioning, Moderate Sedation [id number](Right) - Gregorio Kamara MD Surgeon Gregorio Kamara MD Customer Quality Specialist none Estimated Blood Loss 5 Findings Consistent with Post-Op Diagnosis Specimens none Anesthesia Type RN Sedation Complications none Disposition Accompanied Patient To Recovery: No Disposition: Recovery Room Indications This is a 53-year-old gentleman had a PermCath placed for dialysis. The PermCath is not functioning and cannot be aspirated. Replacement was recommended. I have discussed the risks options and benefits of the procedure with the patient. The patient understands the risks options and benefits and agrees to the procedure. Description of Procedure The patient was taken to the angio suite and placed in the supine position. The patient was identified and a timeout performed. The right side of the neck, chest wall and catheter were prepped and draped in a sterile manner. Local anesthesia was then accomplished. Images show a significant kink in the PermCath at the internal jugular vein access site. Using sharp and blunt dissection, the cuff of the permcath was freed up from the surrounding fibrous tissue. The permcath and cuff were completely removed. A new catheter was inserted over the wire. Due to the significant angle it cannot be passed into the internal jugular vein. The catheter wire was then removed. Pressure was applied after hemostasis was obtained. We decided to place a new PermCath with a new fresh puncture. Local anesthesia was then administered to the appropriate areas of the neck and chest wall. Ultrasound was then used to locate the right internal jugular vein. The vein compressed easily, had no filing defects, and was patent. The vein was then punctured under direct ultrasound imaging. A guidewire was then passed centrally under fluoroscopic imaging. A stab wound was then made in the anterior chest wall and a 19 cm permcath was passed from the stab wound on the chest wall to the puncture site on the neck. The puncture site was then dilated till the 14Fr peel away sheath was inserted. The permcath was then inserted through the sheath to a central position in the distal superior vena cava. The peel away sheath was then removed. The catheter was then sutured in place using nylon sutures. The puncture was then closed using a 4-0 Vicryl subcuticular suture. Dermabond was used for a dressing on the puncture site. Both ports aspirated and flushed easily and were then packed with heparin. A sterile dressing was applied to the catheter. All needle and sponge counts were correct at the end of the procedure. A sterile dressing was then applied. The patient left the operation room in satisfactory condition and tolerated the procedure well. All needle and sponge counts were correct at the end of the procedure. I attest to the content of the Intraoperative Record and any orders documented therein. Any exceptions are noted below.
[2023-09-01] MEDS ORDERED: AA 8%/D14W 1L 1,079 ML in Central TPN bag 0 ML IV SCH (16:00)
[2023-09-01] MEDS ORDERED: CLINOLIPID 20% IV FAT EMULSION 200 ML IV SCH (16:00)
[2023-09-01] MEDS: ACETAMINOPHEN 325 MG TAB PO PRN (21:36)
[2023-09-01] MEDS: FLUCONAZOLE 200 MG/100 ML BAG IV SCH (21:38)
[2023-09-01] MEDS ORDERED: STOP CLINOLIPID SCH (22:00)
--- NOTE | 2023-09-01 22:01 | Hospitalist Progress Note ---
Date of Service September 01, 2023 Assessment & Plan (1) Acute kidney injury: Plan: First noted 07/25-maybe ATN due to poor po intake and previous sepsis, AIN from meds not likely as no WBCs on UA, could be OSWALDO from CT scans patient got volume overloaded with minimal response to several doses of IV diuretics Femoral vein temporary dialysis catheter placed and started on dialysis on 08/12, 08/13. continues on HD TThSat Exhibit [employer] consult continuing -TIJ cath placed 08/16, had bleeding afterwards which is now stopped. Femoral line has since been removed -continue HD as per Nephro and will need HD [facility] at [facility], did a peer to peer discussion with Dr Friedman -Tried to transfer patient to tertiary center: For advanced IR. This was denied, due to lack of window to obtain fluid. In house and tertiary Gen surgery over at [facility], reports they will not operate on patient as patient is clinically stable. Discussed with ID, continue antibiotics. GI reports no need for peg tube as patient's lack of intake is more behavior. His oral intake appears to be improving as there have been days where he has eaten about 75% of his meals. Reconsulted vascular surgeon on 08/31 to replace permacath due to it not functioning. Permacath replaced on (2) Perforated abdominal viscus: Plan: Patient with recent diagnosis of Ulcerative pancolitis, and had sessile polyp biopsied along with other biopsies on a colonoscopy during previous admission. Presented with free air, to OR 06/28/23 with subtotal colon resection with rectal stump remaining, and ileostomy. Three areas of perforation were identified, abscess and feculent material seen. Pseudomonas, Staphylococcus aureus, and Enterococcus faecium as well as Mariely albicans isolated. Repeat abdominal CT scan 07/19 shows persistent fluid collections consistent with abscess 07/23/2023 shows a leukocytosis hence the drain manipulation Repeat abdominal CT on 08/02 with improving size and multiple abscesses but still one that is large 9 cm- discussed with IR not possible as drain additional larger pocket as loculated other pockets too small Pt pulled out his LUQ drain on 08/17 due to encephalopathy. Repeat CT abd/pel 08/17 shows Persistent but not worsening abscesses IR attempted to place new drain on 08/18 without success Appreciate infectious disease recommendations -continue daptomycin, Zosyn, and renally adjusted fluconazole w/ reevaluation for likely extension with CT abd/pel q2-3 weeks-next CT should be around 09/01- 09/08 Switched cefepime to IV Zosyn 08/10 due to concern for cefepime induced ne urotoxicity. - Discontinued metronidazole after completing course on 08/10 - Patient was started on Remeron for appetite stimulant and in case depression causing poor appetite -Check CK once weekly while on daptomycin, -changing wound vac q72h--> wound looks excellent (3) Encephalopathy: Plan: Acute encephalopathy, probably metabolic from hospital delirium, insomnia, thiamine deficiency/Wernicke's encephalopathy, renal failure, and possibly medication/antibiotic induced. Initial bout of encephalopathy previously resolved and then significantly worsened again with hyperactive delirium the week of 08/13.Was not sleeping well, hallucinating, delusional, had nystagmus No signs of new infection and repeat UA no infection, Ur cx no growth, improved with thiamine and Seroquel-> high dose thiamine on 08/19 and increased Seroquel to 50mg po bid CT abd/pel repeated 08/17 with improving abscesses except LUQ one same. Also with inflammation of bladder c/w cystitis Head CT scan negative and repeated on 08/20-again neg for acute Continue IM Zyprexa bid prn (but has not needed now in a few days) Continue Seroquel 25mg qAM and 50mg qhs--> ECG with mildly prolonged QTc-follow periodically while on diflucan Continue Remeron 15mg hs for improved sleep and appetite Gave IV ativan x 1 for hemodialysis on 08/17 and again 08/19 but would try to avoid further benzos if possible as this seemed to make him worse HD ongoing, antibiotic therapy ongoing Supportive care Received thiamine 500 Mg IV every 8 x 6 doses and converted to 200mg po bid x 1 month through 09/21/23 delirium continues intermittently using as needed Ativan and Haldol (4) Acute hypoxic respiratory failure: Plan: resolved, was 2/2 volume overload from pleural effusions from DERIK Recent echocardiogram on 06/21 showed normal EF TPN restarted on 08/24/1308/25/2023 due to 50 pound weight loss during the hospital stay. -still w/ pleural effusions (5) Acute blood loss anemia: Plan: Postoperatively from initial surgery, now anemia from renal failure, chronic disease as well, low but stable Then with active bleeding from TIJ site and hgb now down to 7.3, sinus tachyca rdia, worsening encephalopathy--> transfused 1 unit PRBCs with HD on 08/17 and now hgb up to 9.5 B12, folate, iron studies normal TSH mildly elevated and free T4 mildly low-follow Received 3 units of blood this admission (6) Hard of hearing: Plan: Supportive care, wears hearing device (7) Ulcerative colitis: Plan: Patient with ulcerative colitis diagnosed by colonoscopy in 06/2023 Now status post subtotal colectomy with only rectal stump remaining No treatment needed at this point but will need continued surveillance for colorectal CA of the rectal stump Will need follow-up with GI as an outpatient Plan Dispo-continued stay anticipate discharge this week [facility]ensive discussion with the [facility] -d[facility] needs to be arranged at [facility]--> [id number] discussion with physicians at [facility] system which is a more about skilled nursing type convalescent facility than a robust medical facility, they are reluctant to take the patient in transfer. Admission and Anticipated Discharge Date Admission Date: June 28, 2023 Subjective Patient with pain near permacath site. Review of Systems Review of Systems: All systems reviewed & are unremarkable except as noted in HPI & below Physical Exam Physical Exam: His physical exam is little change No distress. his ostomy is functioning well his lungs are clear and heart is regular Results & Data Results & Data Vital Signs (Past 12 Hours) Vital Signs Temp Pulse Pulse Pulse Resp BP BP 09/01/23 21:31 36.8 C 86 18 160/82 H 09/01/23 19:48 36.4 C L 83 147/84 H 09/01/23 19:30 93 H 132/81 09/01/23 19:00 89 135/81 09/01/23 18:30 88 129/82 09/01/23 18:00 83 140/86 09/01/23 17:30 83 122/84 09/01/23 17:00 77 125/79 09/01/23 16:30 94 H 118/75 09/01/23 16:00 67 150/86 H 09/01/23 15:41 67 162/94 H 09/01/23 15:35 36.4 C L 70 09/01/23 14:55 75 16 156/95 H 09/01/23 14:35 36.4 C L 77 16 159/97 H 09/01/23 14:09 36.4 C L 76 16 154/93 H 09/01/23 14:00 80 18 138/78 09/01/23 13:55 80 18 145/88 H 09/01/23 13:50 80 18 149/90 H 09/01/23 13:45 80 18 143/90 H 09/01/23 13:40 80 18 139/90 09/01/23 13:35 80 18 133/89 09/01/23 13:30 80 18 141/90 H 09/01/23 13:25 74 18 137/88 09/01/23 13:20 74 18 140/88 09/01/23 13:15 74 18 143/94 H 09/01/23 13:10 74 18 143/90 H 09/01/23 11:22 36.6 C 74 16 153/92 H Pulse Ox O2 Del Method O2 Flow Rate 09/01/23 21:31 98 Room Air 09/01/23 19:48 09/01/23 19:30 09/01/23 19:00 09/01/23 18:30 09/01/23 18:00 09/01/23 17:30 09/01/23 17:00 09/01/23 16:30 09/01/23 16:00 09/01/23 15:41 09/01/23 15:35 09/01/23 14:55 97 Room Air 09/01/23 14:35 97 Room Air 09/01/23 14:09 99 Room Air 09/01/23 14:00 100 Room Air 09/01/23 13:55 100 Room Air 09/01/23 13:50 100 Oxymask 4 09/01/23 13:45 100 Oxymask 4 09/01/23 13:40 100 Oxymask 4 09/01/23 13:35 100 Oxymask 4 09/01/23 13:30 100 Oxymask 4 09/01/23 13:25 100 Oxymask 4 09/01/23 13:20 100 Oxymask 4 09/01/23 13:15 100 Oxymask 4 09/01/23 13:10 100 Oxymask 4 09/01/23 11:22 99 Room Air PG Care Time/CCT Total # of Minutes Spent Total Time Spent with Patient: Total time spent is greater than 50% in coordination of care (as documented) at patient's floor/unit and/or counseling patient: Coding Level of Care Code 21977 SUB INP/OBS CARE MIN Diagnoses Acute kidney injury N17.9 Perforated abdominal viscus R19.8 Encephalopathy G93.40 Acute hypoxic respiratory failure J96.01 Acute blood loss anemia D62 Bilateral hearing loss, unspecified hearing loss type H91.93 Hearing loss type: unspecified Laterality: bilateral Ulcerative pancolitis with abscess K51.014 Digestive disease complication type: with abscess Ulcerative colitis location: ulcerative pancolitis (6) Hard of hearing Hearing loss type: unspecified Laterality: bilateral Qualified Code(s): H91.93 - Unspecified hearing loss, bilateral (7) Ulcerative colitis Digestive disease complication type: with abscess Ulcerative colitis location: ulcerative pancolitis Qualified Code(s): K51.014 - Ulcerative (chronic) pancolitis with abscess
[2023-09-02] MEDS: PIPERACILLIN/TAZOBACTAM 4.5 GM in DEXTROSE 5% MINI-B 100 ML IV SCH ×2 (04:35→17:30)
[2023-09-02 08:26] LABS: BUN Creatinine Ratio 12.7 (10-20); Creatinine Clr Calc Pharmacy 29.1 ml/min; Est GFR (African American) 28.9 ml/min; Est GFR (Non-African American) 24.9 ml/min; Magnesium 1.8 mg/dl (1.7-2.4); Phosphorus 2.5 mg/dl (2.5-4.9); Potassium 3.4 mmol/L (3.5-5.1)
--- NOTE | 2023-09-02 08:29 | Nephrology Progress Note ---
Date of Service September 02, 2023 Assessment & Plan (1) Acute kidney injury: Plan: * ATN due to sepsis, contrast induced nephropathy. 07/27/23 renal US and 08/09/[address] were negative for obstruction. Baseline Cr ~ 1.0 * 1st HD 08/12/23 via temporary femoral catheter * R IJ TCC placed 08/16/[address] Kamara * New R IJ TCC placed 09/01/23 followed by HD. No complications * No acute indication for HD today. UO is improved. Will plan next HD for 09/03/23 am and then monitor for renal recovery over holiday weekend (2) Intra-abdominal abscess: Plan: * Remains on daptomycin, Zosyn, and fluconazole * 08/27/[address] - thickening of small bowel suggestive of enteritis, 1.9 cm area within the wall of the stomach concerning for intramural abscess * 08/30/23 ID recommendations: Continue current antibiotics through 09/19/23. Repeat CT A/P 1st week of Sep 2023. If increasing fluid collections, consult IR for drain replacement * Remains on JAY but is tolerating small amounts of oral diet (3) Hypertension: Plan: * BP is acceptable. Remains on metoprolol therapy Admission and Anticipated Discharge Date Admission Date: June 28, 2023 Subjective Mr. Deleon was evaluated in his hospital room this morning. He appeared much brighter and reports that he is tolerating an oral diet Review of Systems Constitutional: no fever Eyes: no problem reported Ear, Nose, Mouth, Throat: no problem reported Respiratory: no cough and no dyspnea Cardiovascular: no chest pain Gastrointestinal: no abdominal pain, no nausea, no vomiting and no diarrhea/loose stools Physical Exam Constitutional: + ill appearing and + cachectic; not in distress Eyes: PERRL, conjunctivae normal, anicteric sclerae ENMT: external ear and nose normal, oropharynx normal Neck: trachea midline, no thyromegaly Respiratory: normal respiratory effort, lungs clear to auscultation Cardiovascular: RRR, no murmur, no edema Rate/Rhythm: regular rate and regular rhythm Extremities: no edema Gastrointestinal (Abdomen): Inspection/Auscultation: normal bowel sounds Neurologic: awake Results & Data Vital Signs (Past 12 Hours) Vital Signs Temp Pulse Pulse Resp BP Pulse Ox O2 Del Method 09/02/23 08:26 36.8 C 82 16 165/84 H 99 Room Air 09/02/23 01:45 36.6 C 71 16 151/82 H 98 Room Air 09/01/23 21:40 Room Air 09/01/23 21:31 36.8 C 86 18 160/82 H 98 Room Air Laboratory Results Laboratory Tests 08/05/23 08/06/23 08/07/23 05:28 05:56 08:35 Sodium 138 Potassium 3.8 Chloride 107 Carbon Dioxide 24 BUN 38 H Creatinine 4.05 H 4.02 H 4.02 H Glucose 131 H PG Care Time/CCT Total # of Minutes Spent Total Time Spent with Patient: Total time spent is greater than 50% in coordination of care (as documented) at patient's floor/unit and/or counseling patient: Coding Level of Care Code 70818 SUB INP/OBS CARE 3/50MIN Diagnoses Acute kidney injury N17.9 Intra-abdominal abscess K65.1 Hypertension I10
[2023-09-02] MEDS: METOPROLOL TARTRATE 25 MG TAB PO SCH ×2 (08:35→21:18)
[2023-09-02] MEDS: QUEtiapine FUMARATE 25 MG TABLET PO SCH ×2 (08:37→21:18)
[2023-09-02] MEDS: PANTOprazole 40 MG TAB PO SCH ×2 (08:37→21:19)
[2023-09-02] MEDS: THIAMINE HCL 100 MG TAB PO SCH ×2 (08:38→21:18)
[2023-09-02] MEDS: MICONAZOLE NITRATE POWDER 85 GM EXT SCH ×2 (08:39→21:19)
--- NOTE | 2023-09-02 10:39 | Hospitalist Progress Note ---
Date of Service September 02, 2023 Assessment & Plan (1) Acute kidney injury: Plan: First noted 07/25-maybe ATN due to poor po intake and previous sepsis, AIN from meds not likely as no WBCs on UA, could be OSWALDO from CT scans patient got volume overloaded with minimal response to several doses of IV diuretics Femoral vein temporary dialysis catheter placed and started on dialysis on 08/12 continues on HD TThSat Pre Billing Clinician consult continuing Temporary IJ catheter replaced on 09/01/2023 -continue HD as per Nephro In house and tertiary Gen surgery over at [facility], reports they will not operate on patient as patient is clinically stable. Discussed with ID, continue antibiotics. GI reports no need for peg tube as patient's lack of intake is more behavior. -Tried to transfer patient to tertiary center: For advanced IR. This was denied, due to lack of window to obtain fluid. (2) Perforated abdominal viscus: Plan: Patient with recent diagnosis of Ulcerative pancolitis, and had sessile polyp biopsied along with other biopsies on a colonoscopy during previous admission. Presented with free air, to OR 06/28/23 with subtotal colon resection with rectal stump remaining, and ileostomy. Three areas of perforation were identified, abscess and feculent material seen. Pseudomonas, Staphylococcus aureus, and Enterococcus faecium as well as Mariely albicans isolated. Repeat abdominal CT scan 07/19 shows persistent fluid collections consistent with abscess 07/23/2023 shows a leukocytosis hence the drain manipulation Repeat abdominal CT on 08/02 with improving size and multiple abscesses but still one that is large 9 cm- discussed with IR not possible as drain additional larger pocket as loculated other pockets too small Pt pulled out his LUQ drain on 08/17 due to encephalopathy. Repeat CT abd/pel 08/17 shows Persistent but not worsening abscesses IR attempted to place new drain on 08/[address] scan abdomen pelvis 1215 shows slight improvement of fluid collections and pleural effusions. A new 1.9 cm hypodense focus in the wall of the stomach possibly representing an intramural abscess was noted. Appreciate infectious disease recommendations -continue daptomycin, Zosyn, and renally adjusted fluconazole w/ reevaluation for likely extension with CT abd/pel q2-3 weeks-next CT should be around 09/01- 09/08 Switched cefepime to IV Zosyn 08/10 due to concern for cefepime induced neurotoxicity. - Discontinued metronidazole after completing course on 08/10 - Patient was started on Remeron for appetite stimulant and in case depression causing poor appetite -Check CK once weekly while on daptomycin, -changing wound vac q72h--> wound improving (3) Encephalopathy: Plan: Acute encephalopathy, probably metabolic from hospital delirium, insomnia, thiamine deficiency/Wernicke's encephalopathy, renal failure, and possibly medication/antibiotic induced. Initial bout of encephalopathy previously resolved and then significantly worsened again with hyperactive delirium the week of 08/13.Was not sleeping well, hallucinating, delusional, had nystagmus No signs of new infection and repeat UA no infection, Ur cx no growth, improved with thiamine and Seroquel-> high dose thiamine on 08/19 and increased Seroquel to 50mg po bid CT abd/pel repeated 08/17 with improving abscesses except LUQ one same. Also with inflammation of bladder c/w cystitis Head CT scan negative and repeated on 08/20-again neg for acute Continue IM Zyprexa bid prn (but has not needed now in a few days) Continue Seroquel 25mg qAM and 50mg qhs--> ECG with mildly prolonged QTc-follow periodically while on diflucan Continue Remeron 15mg hs for improved sleep and appetite Gave IV ativan x 1 for hemodialysis on 08/17 and again 08/19 but would try to avoid further benzos if possible as this seemed to make him worse HD ongoing, antibiotic therapy ongoing Supportive care Received thiamine 500 Mg IV every 8 x 6 doses and converted to 200mg po bid x 1 month through 09/21/23 delirium continues intermittently using as needed Ativan and Haldol (4) Acute hypoxic respiratory failure: Plan: resolved, was 2/2 volume overload from pleural effusions from DERIK Recent echocardiogram on 06/21 showed normal EF TPN restarted on 08/24/1308/25/2023 due to 50 pound weight loss during the hospital stay. -still w/ pleural effusions (5) Acute blood loss anemia: Plan: Postoperatively from initial surgery, now anemia from renal failure, chronic disease as well, low but stable Then with active bleeding from TIJ site and hgb now down to 7.3, sinus tachycardia, worsening encephalopathy--> transfused 1 unit PRBCs with HD on 08/17 and now hgb up to 9.5 B12, folate, iron studies normal TSH mildly elevated and free T4 mildly low-follow Received 3 units of blood this admission (6) Hard of hearing: Plan: Supportive care, wears hearing device (7) Ulcerative colitis: Plan: Patient with ulcerative colitis diagnosed by colonoscopy in 06/2023 Now status post subtotal colectomy with only rectal stump remaining No treatment needed at this point but will need continued surveillance for colorectal CA of the rectal stump Will need follow-up with GI as an outpatient Plan Dispo-continued stay anticipate discharge this week Extensive discussion [facility] -d[facility]--> [id number] discussion with physicians at [facility] system which is a more about long term type convalescent facility than a robust medical facility, they are reluctant to take the patient in transfer. Admission and Anticipated Discharge Date Admission Date: June 28, 2023 Subjective Challenges today with loss of PICC line unable to be replaced. Patient was previously on TPN will be downgraded to PPN however formulation cannot be created so late in the afternoon so we will have him on IV fluid overnight Once again this is not a mechanical issue but patient volitionally does not want to eat he says food does not taste good to him. Patient will be attempted on some Marinol. Overall mental status appears to be improved Physical Exam Physical Exam: Awake alert appropriate today Card exam is regular lungs are clear at the bases abdomen was functioning ostomy soft minorly tender Results & Data Results & Data Vital Signs (Past 12 Hours) Vital Signs Temp Pulse Pulse Resp BP Pulse Ox O2 Del Method 09/02/23 08:26 98.2 F 82 16 165/84 H 99 Room Air 09/02/23 01:45 97.8 F 71 16 151/82 H 98 Room Air Laboratory Results Reviewed chemistry reviewed magnesium PG Care Time/CCT Total # of Minutes Spent Total Time Spent with Patient: Total time spent is greater than 50% in coordination of care (as documented) at patient's floor/unit and/or counseling patient: Coding Level of Care Code 96783 SUB INP/OBS CARE 2/35MIN Diagnoses Acute kidney injury N17.9 Perforated abdominal viscus R19.8 Encephalopathy G93.40 Acute hypoxic respiratory failure J96.01 Acute blood loss anemia D62 Bilateral hearing loss, unspecified hearing loss type H91.93 Hearing loss type: unspecified Laterality: bilateral Ulcerative pancolitis with abscess K51.014 Digestive disease complication type: with abscess Ulcerative colitis location: ulcerative pancolitis (6) Hard of hearing Hearing loss type: unspecified Laterality: bilateral Qualified Code(s): H91.93 - Unspecified hearing loss, bilateral (7) Ulcerative colitis Digestive disease complication type: with abscess Ulcerative colitis location: ulcerative pancolitis Qualified Code(s): K51.014 - Ulcerative (chr onic) pancolitis with abscess
[2023-09-02] MEDS: SODIUM CHLORIDE 0.9% 1,000 ML IV SCH (12:32)
--- NOTE | 2023-09-02 14:38 | Pharmacy Report ---
Pharmacy PN Follow-up Note - Date of Service September 02, 2023 - Subjective Patient is currently on day #[] of [PPN][TPN] for [Indication]. - Objective Height & Weight (Last Documented) Height 5 ft 9 in Weight 45.2 kg Diet Order(s) 09/01/23 Lunch Diet Intake & Ouput (24hrs) 09/01/23 09/02/23 09/03/23 06:59 06:59 06:59 Intake Total 2245.2 / 2245.2 1582 / 1582 693.6 / 693.6 Output Total 1050 / 1050 800 / 800 Balance 1195.2 / 1195.2 782 / 782 693.6 / 693.6 Selected Laboratory Results 09/02/23 07:35 Sodium 139 Potassium 3.4 L Chloride 105 Carbon Dioxide 27 Anion Gap 7 BUN 35 H D Creatinine 2.76 H D Est GFR ( Amer) 28.9 Est GFR (Non-Af Amer) 24.9 BUN/Creatinine Ratio 12.7 Glucose 134 H Calcium 8.0 L Phosphorus 2.5 D Magnesium 1.8 - Assessment & Plan Assessment: * 09/02: * Occluded PICC and HD lines noted 08/31. PICC was able to be successfully managed w cathflo, but dialysis cath was surgically changed yesterday. HD yesterday w next planned tomorrow. * Precipiate noted on 08/31 below the TPN filter - use caution with electrolytes in TPN, especially calcium and phos * Will target lower doses of potassium, phosphate, and magnesium in TPN due to HD patient * May adjust sodium from acetate to chloride tomorrow due to shortage * Triglycerides 253 yesterday, but still less than 400. Will re-order for tomorrow with hope to defer ongoing monitoring until after holiday weekend. * 08/30: * TPN was held yesterday for hypophosphatemia (1.5 mg/dL). Received 30 mmol of Sodium Phosphate yesterday and phosphorus is 4.0 mg/dL this AM. * Other electrolytes review; only noted mild hyperchloremia and low serum CO2 . Will limit chloride in TPN as much as possible. * Per Nephrology: "Remains dialysis dependent. Please minimize volume as best you can." Next HD session scheduled for 08/31/23. * Will check triglycerides again Wednesday (09/01/23); TG have been elevated, likely unnecessary to hold unless > 400 per ASPEN recs * Patient is currently at target macronutrients per Dietary recs. Plan: * For Day #8 of TPN administration, the following will be ordered: * Macronutrients: * Amino Acids: 80 grams/day * Dextrose: 140 grams/day * Lipids: 40 grams/day * Micronutrients: * Potassium phosphate: 9 mMol/day * Sodium chloride: 20 mEq/day * Sodium acetate: 60 mEq/day * Calcium gluconate: 4.65 mEq/day * Multivitamins: 10 mL/day * Trace elements: 1 mL/day * Folic acid: 1 mg/day * Total volume of 1262 mL (1062 mL Clinimix + 200 mL Lipids) will be infused over 24 hours and will provide 1196 kcal/day * Labs will be ordered per PN protocol. * Pharmacy will follow and adjust PN orders on a daily basis. Thank you!
[2023-09-02] MEDS ORDERED: CLINOLIPID 20% IV FAT EMULSION 200 ML IV SCH (16:00)
[2023-09-02] MEDS ORDERED: [UNRECOGNIZED DRUG - OTHER] IV SCH (16:00)
[2023-09-02] MEDS ORDERED: CENTRAL TPN IV SCH (16:00)
[2023-09-02] MEDS ORDERED: MAGNESIUM SULFATE / D5W 1 GM/100 ML BAG IV ONE ×2 (17:05→19:30)
[2023-09-02] MEDS: traMADol HCL 50 MG TABLET PO PRN (17:29)
[2023-09-02] MEDS: D5NSS + 20MEQ KCL 20 MEQ/1,000 ML BAG IV SCH (17:30)
[2023-09-02] MEDS: POTASSIUM CHLORIDE / WTR 10 MEQ/100 ML PLCT IV SCH ×3 (21:17→23:25)
[2023-09-02] MEDS: FLUCONAZOLE 200 MG/100 ML BAG IV SCH (21:17)
[2023-09-02] MEDS: DAPTOmycin 600 MG in SYRINGE 0 ML IV SCH (21:17)
[2023-09-02] MEDS: droNABinol 2.5 MG CAP PO SCH (21:18)
[2023-09-02] MEDS ORDERED: STOP CLINOLIPID SCH (22:00)
[2023-09-03] MEDS: PIPERACILLIN/TAZOBACTAM 4.5 GM in DEXTROSE 5% MINI-B 100 ML IV SCH ×2 (04:17→16:34)
[2023-09-03] MEDS ORDERED: SODIUM CHLORIDE 0.9% 1,000 ML IV PRN (07:00)
[2023-09-03] MEDS ORDERED: EPOETIN ALFA 10,000 UNITS/ML VIAL IV ONE (07:00)
--- NOTE | 2023-09-03 08:43 | Nephrology Progress Note ---
Date of Service September 03, 2023 Assessment & Plan (1) Acute kidney injury: Plan: * ATN due to sepsis, contrast induced nephropathy. 07/27/23 renal US and 08/09/[address] were negative for obstruction. Baseline Cr ~ 1.0 * 1st HD 08/12/23 via temporary femoral catheter * R IJ TCC placed 08/16/[address] Kamara * New R IJ TCC placed 09/01/23 followed by HD. No complications * Will provide HD today after abdominal CT completed. Plan to monitor for renal recovery over holiday weekend (2) Intra-abdominal abscess: Plan: * Remains on daptomycin, Zosyn, and fluconazole * 08/27/[address] - thickening of small bowel suggestive of enteritis, 1.9 cm area within the wall of the stomach concerning for intramural abscess * 08/30/23 ID recommendations: Continue current antibiotics through 09/19/23. Repeat CT A/P 1st week of Sep 2023. If increasing fluid collections, consult IR for drain replacement * Remains on JAY but is tolerating small amounts of oral diet (3) Hypertension: Plan: * BP is acceptable. Remains on metoprolol therapy Admission and Anticipated Discharge Date Admission Date: June 28, 2023 Subjective Mr. Deleon was evaluated in his hospital room this morning. He reports poor appetite. PICC line is no longer functional. Patient was being prepared for abdominal CT this am Review of Systems Constitutional: no fever Eyes: no problem reported Ear, Nose, Mouth, Throat: no problem reported Respiratory: no cough and no dyspnea Cardiovascular: no chest pain Gastrointestinal: no abdominal pain, no nausea, no vomiting and no diarrhea/loose stools Musculoskeletal: + stiffness and + myalgia Physical Exam Constitutional: + ill appearing and + cachectic; not in distress Eyes: PERRL, conjunctivae normal, anicteric sclerae ENMT: external ear and nose normal, oropharynx normal Neck: trachea midline, no thyromegaly Respiratory: normal respiratory effort, lungs clear to auscultation Auscultation: lungs clear to auscultation bilaterally and + rales (at bases bilaterally) Cardiovascular: RRR, no murmur, no edema Rate/Rhythm: regular rate, regular rhythm and + tachycardic Extremities: no edema Gastrointestinal (Abdomen): Inspection/Auscultation: normal bowel sounds and + hypoactive bowel sounds Neurologic: awake Results & Data Vital Signs (Past 12 Hours) Vital Signs Temp Pulse Pulse Resp BP Pulse Ox O2 Del Method 09/03/23 07:43 36.4 C L 75 16 133/83 98 Room Air 09/02/23 21:20 Room Air 09/02/23 21:16 36.8 C 84 18 151/82 H 98 Room Air PG Care Time/CCT Total # of Minutes Spent Total Time Spent with Patient: Total time spent is greater than 50% in coordination of care (as documented) at patient's floor/unit and/or counseling patient: Coding Level of Care Code 22201 SUB INP/OBS CARE 3/50MIN Diagnoses Acute kidney injury N17.9 Intra-abdominal abscess K65.1 Hypertension I10
[2023-09-03] MEDS: METOPROLOL TARTRATE 25 MG TAB PO SCH ×2 (09:04→22:25)
[2023-09-03] MEDS: PANTOprazole 40 MG TAB PO SCH ×2 (09:04→22:24)
[2023-09-03] MEDS: QUEtiapine FUMARATE 25 MG TABLET PO SCH ×2 (09:04→22:23)
[2023-09-03] MEDS: THIAMINE HCL 100 MG TAB PO SCH ×2 (09:05→22:26)
[2023-09-03] MEDS: MICONAZOLE NITRATE POWDER 85 GM EXT SCH ×2 (09:07→22:26)
[2023-09-03] MEDS: droNABinol 2.5 MG CAP PO SCH ×3 (09:12→22:23)
[2023-09-03 09:35] LABS: Hematocrit (blood only) 22.4 % (42.0-52.0); Hemoglobin 7.5 g/dl (14.0-18.0); Mean Corpuscular Hemoglobin 29.1 pg (25.0-34.0); Mean Corpuscular Hgb Conc 33.5 g/dL (32.0-36.0); Mean Corpuscular Volume 86.8 fL (80.0-100.0); Mean Platelet Volume 10.7 fL (9.4-12.4); Platelet Count 335 K/uL (130-400); RDW Coefficient of Variation 16.3 % (11.5-14.5); RDW Standard Deviation 51.5 fL (36.4-46.3); Red Blood Count 2.58 M/uL (4.70-6.10); White Blood Count 5.43 K/ul (4.8-10.8)
[2023-09-03 09:53] LABS: BUN Creatinine Ratio 11.3 (10-20); Calcium 8.2 mg/dl (8.6-10.3); Creatinine Clr Calc Pharmacy 14.6 ml/min; Est GFR (African American) 19.5 ml/min; Est GFR (Non-African American) 16.8 ml/min; Phosphorus 3.1 mg/dl (2.5-4.9); Potassium 4.1 mmol/L (3.5-5.1)
[2023-09-03] MEDS: SODIUM CHLORIDE 0.9% 1,000 ML IV SCH (11:03)
--- NOTE | 2023-09-03 13:30 | CT Scan Report ---
CT abd pelvis oral con only CLINICAL HISTORY: eval stomach wall fluid collection and others TECHNIQUE: Helical axial images of the abdomen and pelvis were obtained. Automated dose lowering tech niques and/or adjustment according to patient size were utilized for this exam. This exam was perfor med without intravenous contrast. CT DOSE: 390.44 mGy.cm COMPARISON: Comparison is made to CT abdomen pelvis 08/27/2023 FINDINGS: Lower chest: Moderate left and small right pleural effusion is seen with underlying atelectasis. Inc idental note is hypodensity of the blood flow compared to cardiac wall. Liver: Unremarkable. No focal lesions are seen. Gallbladder and biliary tree: No calcified gallstones. Normal caliber wall. No intra- or extrahepatic biliary ductal dilation. Pancreas: Unremarkable, no focal lesions. Spleen: Unremarkable. Adrenals: Unremarkable. Kidneys and ureters: Unremarkable. Bladder: Limited evaluation due to underdistention. Reproductive organs: Unremarkable. Bowel: Postsurgical history of subtotal colectomy with a right lower quadrant ileostomy. No evidence of obstruction. There is thickening of the gastric wall, particularly proximally, without definite dr ainable fluid collection. Lymph nodes Retroperitoneal: Unremarkable. Pelvic: Unremarkable. Mesenteric: Unremarkable. Peritoneum: Left upper quadrant/perisplenic fluid collection is unchanged. Minimal peritoneal strandi ng and tiny residual abdominal fluid is seen. Vessels: Atherosclerotic calcifications are seen. Abdominal wall: Unremarkable. Bones: Degenerative changes in the visualized spine. IMPRESSION: 1. Within the limits of a exam performed without intravenous contrast, there is no drainable fluid c ollection in the gastric wall. There is prominence of the proximal gastric wall which may be secondar y to underdistention or gastritis. 2. Redemonstration of left upper quadrant fluid collection. 3. Moderate left and small right pleural effusions, slightly increased from prior exam. 4. Anemia. 5. Additional findings as above. ACT 112: Negative or not required by law. Electronically signed by: Sudhakar Ambrose M.D. 09/03/2023 1:28 PM
--- NOTE | 2023-09-03 15:48 | Pharmacy Report ---
Pharmacy PN Follow-up Note - Date of Service September 03, 2023 - Subjective Patient is currently on day #[] of [PPN][TPN] for [Indication]. - Objective Height & Weight (Last Documented) Height 5 ft 9 in Weight 46.6 kg Diet Order(s) 09/01/23 Lunch Diet Intake & Ouput (24hrs) 09/02/23 09/03/23 09/04/23 06:59 06:59 06:59 Intake Total 1582 / 1582 1483.6 / 1483.6 100 / 100 Output Total 800 / 800 100 / 100 1000 / 1000 Balance 782 / 782 1383.6 / 1383.6 -900 / -900 Selected Laboratory Results 09/03/23 08:53 Sodium 138 Potassium 4.1 D Chloride 107 Carbon Dioxide 21 Anion Gap 10 BUN 43 H Creatinine 3.82 H D Est GFR ( Amer) 19.5 Est GFR (Non-Af Amer) 16.8 BUN/Creatinine Ratio 11.3 Glucose 121 H Calcium 8.2 L Phosphorus 3.1 Magnesium 2.0 Triglycerides 245 H - Assessment & Plan Assessment: * 09/03: * PICC line not able to be salvaged by IV team, peripheral line placed. TPN placed on hold last night. D5NS+ 20K started by provider. * Provider requested initiation of PPN as there are currently no plans for central line placement * Appreciate recommendations per dietary. * Phosphate/calcium precipitate: Calcium removed from TPN today, corrected calcium based on albumin within goal range. * Hemodialysis today after abdominal CT * Triglycerides stable, continue with lipids. Next level ordered for 09/07 * 09/02: * Occluded PICC and HD lines noted 08/31. PICC was able to be successfully managed w cathflo, but dialysis cath was surgically changed yesterday. HD yesterday w next planned tomorrow. * Precipiate noted on 08/31 below the TPN filter - use caution with electrolytes in TPN, especially calcium and phos * Will target lower doses of potassium, phosphate, and magnesium in TPN due to HD patient * May adjust sodium from acetate to chloride tomorrow due to shortage * Triglycerides 253 yesterday, but still less than 400. Will re-order for tomorrow with hope to defer ongoing monitoring until after holiday weekend. * 08/30: * TPN was held yesterday for hypophosphatemia (1.5 mg/dL). Received 30 mmol of Sodium Phosphate yesterday and phosphorus is 4.0 mg/dL this AM. * Other electrolytes review; only noted mild hyperchloremia and low serum CO2 . Will limit chloride in TPN as much as possible. * Per Nephrology: "Remains dialysis dependent. Please minimize volume as best you can." Next HD session scheduled for 08/31/23. * Will check triglycerides again Wednesday (09/01/23); TG have been elevated, likely unnecessary to hold unless > 400 per ASPEN recs * Patient is currently at target macronutrients per Dietary recs. Plan: * For Day #9 of PN administration (PPN Day #1), the following will be ordered: * Macronutrients: * Amino Acids: 71 grams/day * Dextrose: 84 grams/day * Lipids: 50 grams/day * Micronutrients: * Sodium phosphate: 24 mMol/day * Sodium chloride: 100 mEq/day * Potassium acetate: 100 mEq/day * Multivitamins: 10 mL/day * Trace elements: 1 mL/day * Folic acid: 1 mg/day * Total volume of 1789 mL (1680 mL Clinimix + 250 mL Lipids) will be infused over 24 hours and will provide 1070 kcal/day * Labs will be ordered per PN protocol. * Pharmacy will follow and adjust PN orders on a daily basis. Thank you!
[2023-09-03] MEDS ORDERED: CLINOLIPID 20% IV FAT EMULSION 250 ML IV SCH (16:00)
--- NOTE | 2023-09-03 16:16 | Hospitalist Progress Note ---
Date of Service September 03, 2023 Assessment & Plan (1) Acute kidney injury: Plan: First noted 07/25-maybe ATN due to poor po intake and previous sepsis, AIN from meds not likely as no WBCs on UA, could be OSWALDO from CT scans patient got volume overloaded with minimal response to several doses of IV diuretics Femoral vein temporary dialysis catheter placed and started on dialysis on 08/12 continues on HD [employer] consult continuing Temporary IJ catheter replaced on 09/01/2023 In house and tertiary [facility] surgery over at [facility], reports they will not operate on patient as patient is clinically stable. Discussed with IR finding no evidence of adequate window to drain fluid collection Discussed with ID, continue antibiotics. GI reports no need for peg tube as patient's lack of intake is more behavior. - (2) Perforated abdominal viscus: Plan: Patient with recent diagnosis of Ulcerative pancolitis, and had sessile polyp biopsied along with other biopsies on a colonoscopy during previous admission. Presented with free air, to OR 06/28/23 with subtotal colon resection with rectal stump remaining, and ileostomy. Three areas of perforation were identified, abscess and feculent material seen. Pseudomonas, Staphylococcus aureus, and Enterococcus faecium as well as Mariely albicans isolated. Repeat abdominal CT scan 07/19 shows persistent fluid collections consistent with abscess 07/23/2023 shows a leukocytosis hence the drain manipulation Repeat abdominal CT on 08/02 with improving size and multiple abscesses but still one that is large 9 cm- discussed with IR not possible as drain additional larger pocket as loculated other pockets too small Pt pulled out his LUQ drain on 08/17 due to encephalopathy. Repeat CT abd/pel 08/17 shows Persistent but not worsening abscesses IR attempted to place new drain on 08/18 without success Most recent CT scan abdomen pelvis 09/03/2023 shows slight improvement of fluid collections and pleural effusions. Previous identified abnormality in wall of the stomach was not seen on the scan. Other fluid collections remained stable or slightly improved Appreciate infectious disease recommendations -continue daptomycin, Zosyn, and renally adjusted fluconazole and is on treatment with current antibiotics antifungals through September 19, 2023 Switched cefepime to IV Zosyn 08/10 due to concern for cefepime induced neurotoxicity. - Discontinued metronidazole after completing course on 08/10 -Check CK once weekly while on daptomycin, - (3) Encephalopathy: Plan: Acute encephalopathy, probably metabolic from hospital delirium, insomnia, thiamine deficiency/Wernicke's encephalopathy, renal failure, and possibly me dication/antibiotic induced. Initial bout of encephalopathy previously resolved and then significantly worsened again with hyperactive delirium the week of 08/13.Was not sleeping well, hallucinating, delusional, had nystagmus No signs of new infection and repeat UA no infection, Ur cx no growth, improved with thiamine and Seroquel-> high dose thiamine on 08/19 and increased Seroquel to 50mg po bid CT abd/pel repeated 08/17 with improving abscesses except LUQ one same. Also with inflammation of bladder c/w cystitis Head CT scan negative and repeated on 08/20-again neg for acute Continue IM Zyprexa bid prn (but has not needed now in a few days) Continue Seroquel 25mg qAM and 50mg qhs--> ECG with mildly prolonged QTc-follow periodically while on diflucan Continue Remeron 15mg hs for improved sleep and appetite Gave IV ativan x 1 for hemodialysis on 08/17 and again 08/19 but would try to avoid further benzos if possible as this seemed to make him worse HD ongoing, antibiotic therapy ongoing Supportive care Received thiamine 500 Mg IV every 8 x 6 doses and converted to 200mg po bid x 1 month through 09/21/23 delirium continues intermittently using as needed Ativan and Haldol (4) Acute hypoxic respiratory failure: Plan: resolved, was 2/2 volume overload from pleural effusions from DERIK Recent echocardiogram on 06/21 showed normal EF TPN restarted on 08/24/1308/25/2023 due to 50 pound weight loss during the hospital stay. -still w/ pleural effusions (5) Acute blood loss anemia: Plan: Postoperatively from initial surgery, now anemia from renal failure, chronic disease as well, low but stable Then with active bleeding from TIJ site and hgb now down to 7.3, sinus tachycardia, worsening encephalopathy--> transfused 1 unit PRBCs with HD on 08/17 and now hgb up to 9.5 B12, folate, iron studies normal TSH mildly elevated and free T4 mildly low-follow Received 3 units of blood this admission hemoglobin on 09/03 shows in the 7 range we will continue to follow no obvious source of blood loss likely nutritional in origin (6) Hard of hearing: Plan: Supportive care, wears hearing device (7) Ulcerative colitis: Plan: Patient with ulcerative colitis diagnosed by colonoscopy in 06/2023 Now status post subtotal colectomy with only rectal stump remaining No treatment needed at this point but will need continued surveillance for colorectal CA of the rectal stump Will need follow-up with GI as an outpatient Plan Patient with antibiotics to September 19, 2023 disposition likely will be after that Extensive discussion with the [facility] -dialysis needs to be arranged at [facility]--> [id number] discussion with physicians at [facility] system which is a more about [facility] type convalescent facility than a robust medical facility, they are reluctant to take the patient in transfer. Admission and Anticipated Discharge Date Admission Date: June 28, 2023 Subjective Mr. Spangler has no focal complaints or problems no untoward side effects from institution of Marinol therapy however no improvement of his nutritional status or willingness to eat Since we lost her PICC line on 09/02 or using PPN through peripheral line. Still encouraging p.o. intake and escalating doses of Marinol Physical Exam Physical Exam: Awake alert appropriate today Card exam is regular lungs are clear at the bases abdomen was functioning ostomy soft minorly tender Results & Data Results & Data Vital Signs (Past 12 Hours) Vital Signs Temp Pulse Pulse Resp BP Pulse Ox O2 Del Method 09/03/23 07:43 97.5 F L 75 16 133/83 98 Room Air 09/02/23 21:20 Room Air 09/02/23 21:16 98.2 F 84 18 151/82 H 98 Room Air Laboratory Results Reviewed CBC showing some decrement in hemoglobin level Reviewed chemistry Reviewed CT scan showing no evidence of fluid collection in the gastric wall PG Care Time/CCT Total # of Minutes Spent Total Time Spent with Patient: Total time spent is greater than 50% in coordination of care (as documented) at patient's floor/unit and/or counseling patient: Coding Level of Care Code 64876 SUB INP/OBS CARE 2/35MIN Diagnoses Acute kidney injury N17.9 Perforated abdominal viscus R19.8 Encephalopathy G93.40 Acute hypoxic respiratory failure J96.01 Acute blood loss anemia D62 Bilateral hearing loss, unspecified hearing loss type H91.93 Hearing loss type: unspecified Laterality: bilateral Ulcerative pancolitis with abscess K51.014 Ulcerative colitis location: ulcerative pancolitis Digestive disease complication type: with abscess (6) Hard of hearing Hearing loss type: unspecified Laterality: bilateral Qualified Code(s): H91. 93 - Unspecified hearing loss, bilateral (7) Ulcerative colitis Ulcerative colitis location: ulcerative pancolitis Digestive disease complication type: with abscess Qualified Code(s): K51.014 - Ulcerative (chronic) pancolitis with abscess
[2023-09-03] MEDS: D5NSS + 20MEQ KCL 20 MEQ/1,000 ML BAG IV SCH (16:28)
[2023-09-03] MEDS: [UNRECOGNIZED DRUG - OTHER] IV SCH (16:30)
[2023-09-03] MEDS: PERIPHERAL TPN IV SCH (16:30)
[2023-09-03] MEDS: FLUCONAZOLE 200 MG/100 ML BAG IV SCH (22:25)
[2023-09-03] MEDS: STOP CLINOLIPID SCH (22:26)
[2023-09-04] MEDS: PIPERACILLIN/TAZOBACTAM 4.5 GM in DEXTROSE 5% MINI-B 100 ML IV SCH ×2 (04:29→16:48)
[2023-09-04 06:54] LABS: BUN Creatinine Ratio 8.2 (10-20); Calcium 7.8 mg/dl (8.6-10.3); Creatinine Clr Calc Pharmacy 25.4 ml/min; Est GFR (African American) 38.2 ml/min; Est GFR (Non-African American) 32.9 ml/min; Magnesium 1.6 mg/dl (1.7-2.4); Phosphorus 2.4 mg/dl (2.5-4.9); Potassium 3.9 mmol/L (3.5-5.1)
[2023-09-04 06:56] LABS: Hematocrit (blood only) 19.7 % (42.0-52.0); Hemoglobin 6.6 g/dl (14.0-18.0); Mean Corpuscular Hemoglobin 29.7 pg (25.0-34.0); Mean Corpuscular Hgb Conc 33.5 g/dL (32.0-36.0); Mean Corpuscular Volume 88.7 fL (80.0-100.0); Mean Platelet Volume 10.4 fL (9.4-12.4); Platelet Count 334 K/uL (130-400); RDW Coefficient of Variation 16.6 % (11.5-14.5); RDW Standard Deviation 53.1 fL (36.4-46.3); Red Blood Count 2.22 M/uL (4.70-6.10); White Blood Count 4.97 K/ul (4.8-10.8)
[2023-09-04] MEDS ORDERED: SODIUM CHLORIDE 0.9% 250 ML IV PRN (07:18)
[2023-09-04] MEDS: PANTOprazole 40 MG TAB PO SCH ×2 (08:34→21:13)
[2023-09-04] MEDS: METOPROLOL TARTRATE 25 MG TAB PO SCH ×2 (08:34→21:13)
[2023-09-04] MEDS: THIAMINE HCL 100 MG TAB PO SCH (08:34)
[2023-09-04] MEDS: MICONAZOLE NITRATE POWDER 85 GM EXT SCH ×2 (08:35→21:02)
[2023-09-04] MEDS: QUEtiapine FUMARATE 25 MG TABLET PO SCH ×2 (08:35→21:12)
[2023-09-04] MEDS: droNABinol 2.5 MG CAP PO SCH ×2 (08:49→21:11)
--- NOTE | 2023-09-04 13:00 | Nephrology Progress Note ---
Date of Service September 04, 2023 Assessment & Plan (1) Acute kidney injury: (2) Acute hypoxic respiratory failure: (3) Intra-abdominal abscess: (4) Acute blood loss anemia: (5) Megacolon, toxic: (6) Ileostomy in place: (7) Ulcerative colitis: Plan 53 y o m admitted with Toxic megacolon with new diagnosis of ulcerative colitis, s/p exploratory laparotomy on 06/28/23. Found to have multiple intra-abdominal abscesses and had multiple CT with IV contrast over last 1 month. Also has been multiple courses of antibiotic including cefepime, caspofungin, currently on Zosyn, daptomycin and fluconazole for MRSA and Pseudomonas intra-abdominal infection and abscess. Developed DERIK with volume overload prior creatinine 0.9 until 07/21/2023. Urinalysis with proteinuria but no hematuria or pyuria. Renal ultrasound was otherwise unremarkable. He was started on dialysis on 08/12/2023 via F temporary catheter and had TDC on 08/16/2023. Blood pressure, volume status acceptable. Remained oligo anuric. Had HD yesterday --Continue to monitor over the weekend for any need for dialysis. --avoid all NSAIDs --Dose medications for eGFR less than 10 Will follow. Admission and Anticipated Discharge Date Admission Date: June 28, 2023 Sean Galan was seen and evaluated this morning. He was lying in bed, awake, alert and comfortable. Denied any symptoms. Urine output remains quite low. Had dialysis yesterday. Electrolyte acceptable. Review of Systems Review of Systems: Detailed review of system was otherwise unremarkable. Physical Exam Constitutional: WD/WN, vitals as above + ill appearing and + cachectic Eyes: + anicteric sclerae Neck: normal visual inspection Respiratory: no respiratory distress Auscultation: lungs clear to auscultation bilaterally Cardiovascular: RRR, no murmur, no edema Extremities: + vascular access device (left femoral catheter) IJ tunneled dialysis catheter, no active bleeding Skin: no rashes, warm and dry Neurologic: no focal motor deficits Psychiatric: awake , alert Results & Data Vital Signs (Past 12 Hours) Vital Signs Temp Pulse Resp BP Pulse Ox O2 Del Method 09/04/23 08:13 36.6 C 90 16 143/83 H 97 Room Air PG Care Time/CCT Total # of Minutes Spent Total Time Spent with Patient: Total time spent is greater than 50% in coordination of care (as documented) at patient's floor/unit and/or counseling patient: Coding Level of Care Code 39316 SUB INP/OBS CARE MIN Diagnoses Acute kidney injury N17.9 Acute hypoxic respiratory failure J96.01 Intra-abdominal abscess K65.1 Acute blood loss anemia D62 Megacolon, toxic K59.[address] Z93.2 Ulcerative pancolitis with abscess K51.014 Ulcerative colitis location: ulcerative pancolitis Digestive disease complication type: with abscess (7) Ulcerative colitis Ulcerative colitis location: ulcerative pancolitis Digestive disease complication type: with abscess Qualified Code(s): K51.014 - Ulcerative (chronic) pancolitis with abscess
[2023-09-04] MEDS: FUROSEMIDE 40 MG/4 ML VIAL IV SCH ×2 (13:01→17:34)
[2023-09-04] MEDS: SODIUM CHLORIDE 0.9% 1,000 ML IV SCH (13:01)
--- NOTE | 2023-09-04 14:07 | Hospitalist Progress Note ---
Date of Service September 04, 2023 Assessment & Plan (1) Acute kidney injury: Plan: First noted 07/25-maybe ATN due to poor po intake and previous sepsis, AIN from meds not likely as no WBCs on UA, could be OSWALDO from CT scans patient got volume overloaded with minimal response to several doses of IV diuretics Femoral vein temporary dialysis catheter placed and started on dialysis on 08/12 continues on HD [employer] consult continuing Temporary IJ catheter replaced on 09/01/2023 In house and tertiary [facility] surgery over at [facility], reports they will not operate on patient as patient is clinically stable. Discussed with IR finding no evidence of adequate window to drain fluid collection Discussed with ID, continue antibiotics. GI reports no need for peg tube as patient's lack of intake is more behavior. - (2) Perforated abdominal viscus: Plan: Patient with recent diagnosis of Ulcerative pancolitis, and had sessile polyp biopsied along with other biopsies on a colonoscopy during previous admission. Presented with free air, to OR 06/28/23 with subtotal colon resection with rectal stump remaining, and ileostomy. Three areas of perforation were identified, abscess and feculent material seen. Pseudomonas, Staphylococcus aureus, and Enterococcus faecium as well as Mariely albicans isolated. Repeat abdominal CT scan 07/19 shows persistent fluid collections consistent with abscess 07/23/2023 shows a leukocytosis hence the drain manipulation Repeat abdominal CT on 08/02 with improving size and multiple abscesses but still one that is large 9 cm- discussed with IR not possible as drain additional larger pocket as loculated other pockets too small Pt pulled out his LUQ drain on 08/17 due to encephalopathy. Repeat CT abd/pel 08/17 shows Persistent but not worsening abscesses IR attempted to place new drain on 08/18 without success Most recent CT scan abdomen pelvis 09/03/2023 shows slight improvement of fluid collections and pleural effusions. Previous identified abnormality in wall of the stomach was not seen on the scan. Other fluid collections remained stable or slightly improved Appreciate infectious disease recommendations -continue daptomycin, Zosyn, and renally adjusted fluconazole and is on treatment with current antibiotics antifungals through September 19, 2023 Switched cefepime to IV Zosyn 08/10 due to concern for cefepime induced neurotoxicity. - Discontinued metronidazole after completing course on 08/10 -Check CK once weekly while on daptomycin, - (3) Encephalopathy: Plan: Resolved Acute encephalopathy, probably metabolic from hospital delirium, insomnia, thiamine deficiency/Wernicke's encephalopathy, renal failure, and possibly medication/antibiotic induced. Initial bout of encephalopathy previously resolved and then significantly worsened again with hyperactive delirium the week of 08/13.Was not sleeping well, hallucinating, delusional, had nystagmus Head CT scan negative and repeated on 08/20-again neg for acute Continue Seroquel 25mg qAM and 50mg qhs--> ECG with mildly prolonged QTc-follow periodically while on diflucan Continue IM Zyprexa bid prn (but has not needed now in a few days) Gave IV ativan x 1 for hemodialysis on 08/17 and again 08/19 but would try to avoid further benzos if possible as this seemed to make him worse HD ongoing, antibiotic therapy ongoing Received thiamine 500 Mg IV every 8 x 6 doses and converted to 200 mg daily (4) Acute hypoxic respiratory failure: Plan: resolved, was 2/2 volume overload from pleural effusions from DERIK Recent echocardiogram on 06/21 showed normal EF TPN restarted on 08/24/1308/25/2023 due to 50 pound weight loss during the hospital stay. lost picc line and cannot secure another changed to ppn on 09/03 -still w/ pleural effusions (5) Acute blood loss anemia: Plan: Postoperatively from initial surgery, now anemia from renal failure, chronic disease as well, low but stable Then with active bleeding from TIJ site and hgb now down to 7.3, sinus tachycardia, worsening encephalopathy--> transfused 1 unit PRBCs with HD on 08/17 and now hgb up to 9.5 B12, folate, iron studies normal TSH mildly elevated and free T4 mildly low-follow Received 5 units of blood this admission hemoglobin no obvious source of blood loss likely nutritional in origin (6) Hard of hearing: Plan: Supportive care, wears hearing device (7) Ulcerative colitis: Plan: Patient with ulcerative colitis diagnosed by colonoscopy in 06/2023 Now status post subtotal colectomy with only rectal stump remaining No treatment needed at this point but will need continued surveillance for colorectal CA of the rectal stump Will need follow-up with GI as an outpatient Plan Patient with antibiotics to September 19, 2023 disposition likely will be after that Extensive discussion with the [facility] -dialysis needs to be arranged at [facility]--> [id number] discussion with physicians at [facility] system which is a more about snf type convalescent facility than a robust medical facility, they are reluctant to take the patient in transfer. Admission and Anticipated Discharge Date Admission Date: June 28, 2023 Subjective Awake and appropriate no focal complaints of pain or discomfort Denies dark stool in his ostomy bag Evidence of bruising or bleeding elsewhere in his body or loss of blood from nosebleeds or hematuria Physical Exam Physical Exam: Awake alert appropriate today has not been confused for a few days Card exam is regular lungs are clear at the bases abdomen was functioning ostomy soft no further tenderness or ecchymosis noted Results & Data Results & Data Vital Signs (Past 12 Hours) Vital Signs Temp Pulse Resp BP Pulse Ox O2 Del Method 09/04/23 08:13 97.9 F 90 16 143/83 H 97 Room Air Laboratory Results Reviewed CBC reviewed repeat hemoglobin Ordered type and cross and transfusion Reviewed chemistry PG Care Time/CCT Total # of Minutes Spent Total Time Spent with Patient: Total time spent is greater than 50% in coordination of care (as documented) at patient's floor/unit and/or counseling patient: Coding Level of Care Code 06978 SUB INP/OBS CARE 2/35MIN Diagnoses Acute kidney injury N17.9 Perforated abdominal viscus R19.8 Encephalopathy G93.40 Acute hypoxic respiratory failure J96.01 Acute blood loss anemia D62 Bilateral hearing loss, unspecified hearing loss type H91.93 Hearing loss type: unspecified Laterality: bilateral Ulcerative pancolitis with abscess K51.014 Ulcerative colitis location: ulcerative pancolitis Digestive disease complication type: with abscess (6) Hard of hearing Hearing loss type: unspecified Laterality: bilateral Qualified Code(s): H91.93 - Unspecified hearing loss, bilateral (7) Ulcerative colitis Ulcerative colitis location: ulcerative pancolitis Digestive disease co mplication type: with abscess Qualified Code(s): K51.014 - Ulcerative (chronic) pancolitis with abscess
[2023-09-04] MEDS ORDERED: CLINOLIPID 20% IV FAT EMULSION 250 ML IV SCH (16:00)
[2023-09-04] MEDS: PERIPHERAL TPN IV SCH ×2 (16:48→18:02)
[2023-09-04] MEDS: [UNRECOGNIZED DRUG - OTHER] IV SCH (16:48)
[2023-09-04] MEDS: [UNRECOGNIZED DRUG - OTHER] IV SCH (18:02)
[2023-09-04] MEDS ORDERED: MAGNESIUM SULFATE / D5W 1 GM/100 ML BAG IV ONE (21:00)
[2023-09-04] MEDS: DAPTOmycin 600 MG in SYRINGE 0 ML IV SCH (21:11)
[2023-09-04] MEDS: FLUCONAZOLE 200 MG/100 ML BAG IV SCH (21:29)
[2023-09-04] MEDS: STOP CLINOLIPID SCH (23:06)
[2023-09-05] MEDS: PIPERACILLIN/TAZOBACTAM 4.5 GM in DEXTROSE 5% MINI-B 100 ML IV SCH ×2 (03:59→16:33)
[2023-09-05] MEDS: THIAMINE HCL 100 MG TAB PO SCH (08:06)
[2023-09-05] MEDS: QUEtiapine FUMARATE 25 MG TABLET PO SCH ×2 (08:06→20:02)
[2023-09-05] MEDS: METOPROLOL TARTRATE 25 MG TAB PO SCH ×2 (08:07→20:03)
[2023-09-05] MEDS: PANTOprazole 40 MG TAB PO SCH ×2 (08:07→20:03)
[2023-09-05] MEDS: MICONAZOLE NITRATE POWDER 85 GM EXT SCH ×2 (08:08→20:02)
[2023-09-05 08:17] LABS: Hematocrit (blood only) 30.4 % (42.0-52.0); Hemoglobin 10.2 g/dl (14.0-18.0); Mean Corpuscular Hemoglobin 29.7 pg (25.0-34.0); Mean Corpuscular Hgb Conc 33.6 g/dL (32.0-36.0); Mean Corpuscular Volume 88.4 fL (80.0-100.0); Mean Platelet Volume 10.4 fL (9.4-12.4); Platelet Count 326 K/uL (130-400); RDW Coefficient of Variation 17.2 % (11.5-14.5); Red Blood Count 3.44 M/uL (4.70-6.10); Reticulocyte % 1.8 % (0.5-2.0); Reticulocytes # 0.06 10^6/uL (0.02-0.10); White Blood Count 6.38 K/ul (4.8-10.8)
[2023-09-05 08:24] LABS: Phosphorus 3.6 mg/dl (2.5-4.9)
[2023-09-05 08:25] LABS: BUN Creatinine Ratio 12.4 (10-20); Creatinine Clr Calc Pharmacy 18.2 ml/min; Est GFR (African American) 25.5 ml/min; Magnesium 1.8 mg/dl (1.7-2.4); Potassium 4.8 mmol/L (3.5-5.1)
--- NOTE | 2023-09-05 11:54 | Nephrology Progress Note ---
Date of Service September 05, 2023 Assessment & Plan (1) Acute kidney injury: (2) Acute hypoxic respiratory failure: (3) Intra-abdominal abscess: (4) Acute blood loss anemia: (5) Megacolon, toxic: (6) Ileostomy in place: (7) Ulcerative colitis: Plan 53 y o m admitted with Toxic megacolon with new diagnosis of ulcerative colitis, s/p exploratory laparotomy on 06/28/23. Found to have multiple intra-abdominal abscesses and had multiple CT with IV contrast over last 1 month. Also has been multiple courses of antibiotic including cefepime, caspofungin, currently on Zosyn, daptomycin and fluconazole for MRSA and Pseudomonas intra-abdominal infection and abscess. Developed DERIK with volume overload prior creatinine 0.9 until 07/21/2023. Urinalysis with proteinuria but no hematuria or pyuria. Renal ultrasound was otherwise unremarkable. He was started on dialysis on 08/12/2023 via F temporary catheter and had TDC on 08/16/2023. Blood pressure, volume status acceptable. Remained oligo anuric. --Continue to monitor over the weekend for any need for dialysis. Most likely will have to resume dialysis Wednesday. --avoid all NSAIDs --Dose medications for eGFR less than 10 Will follow. Admission and Anticipated Discharge Date Admission Date: June 28, 2023 Sean Galan was seen and evaluated this morning. He was lying in bed, resting comfortably. Urine output remains quite low. Had dialysis Wednesday. Electrolyte acceptable. Review of Systems Review of Systems: Detailed review of system was otherwise unremarkable. Physical Exam Constitutional: WD/WN, vitals as above + ill appearing and + cachectic; no acute distress Eyes: + anicteric sclerae Cardiovascular: RRR, no murmur, no edema Musculoskeletal: Extremities: extremities normal to inspection and + muscle atrophy Skin: no rashes, warm and dry Neurologic: no focal motor deficits Psychiatric: Orientation: alert and oriented x 3 Affect: euthymic affect Results & Data Vital Signs (Past 12 Hours) Vital Signs Temp Pulse Resp BP Pulse Ox O2 Del Method 09/05/23 07:05 36.8 C 73 16 125/63 93 Room Air PG Care Time/CCT Total # of Minutes Spent Total Time Spent with Patient: Total time spent is greater than 50% in coordination of care (as documented) at patient's floor/unit and/or counseling patient: Coding Level of Care Code 77355 SUB INP/OBS CARE 235MIN Diagnoses Acute kidney injury N17.9 Acute hypoxic respiratory failure J96.01 Intra-abdominal abscess K65.1 Acute blood loss anemia D62 Megacolon, toxic K59.[address] Z93.2 Ulcerative pancolitis with abscess K51.014 Ulcerative colitis location: ulcerative pancolitis Digestive disease complication type: with abscess (7) Ulcerative colitis Ulcerative colitis location: ulcerative pancolitis Digestive disease complication type: with abscess Qualified Code(s): K51.014 - Ulcerative (chronic) pancolitis with abscess
[2023-09-05] MEDS: droNABinol 2.5 MG CAP PO SCH ×2 (12:36→20:13)
--- NOTE | 2023-09-05 13:01 | Hospitalist Progress Note ---
Date of Service September 05, 2023 Assessment & Plan (1) Acute kidney injury: Plan: First noted 07/25-maybe ATN due to poor po intake and previous sepsis, could be OSWALDO from CT scans patient got volume overloaded with minimal response to several doses of IV diuretics Femoral vein temporary dialysis catheter placed and started on dialysis on 08/12 continues on HD [employer] consult continuing Temporary IJ catheter replaced on 09/01/2023- (2) Perforated abdominal viscus: Plan: Patient with recent diagnosis of Ulcerative pancolitis, and had sessile polyp biopsied along with other biopsies on a colonoscopy during previous admission. Presented with free air, to OR 06/28/23 with subtotal colon resection with rectal stump remaining, and ileostomy. Three areas of perforation were identified, abscess and feculent material seen. Pseudomonas, Staphylococcus aureus, and Enterococcus faecium as well as Mariely albicans isolated. Most recent CT scan abdomen pelvis 09/03/2023 shows slight improvement of fluid collections and pleural effusions. Previous identified abnormality in wall of the stomach was not seen on the scan. Other fluid collections remained stable or slightly improved [place] [facility] surgery over at [facility], reports they will not operate on patient as patient is clinically stable. Discussed with IR finding no evidence of adequate window to drain fluid collection Discussed with ID, continue antibiotics, Appreciate infectious disease recommendations -continue daptomycin, Zosyn, and renally adjusted fluconazole and is on treatment with current antibiotics antifungals through September 19, 2023 Switched cefepime to IV Zosyn 08/10 due to concern for cefepime induced neurotoxicity. - Discontinued metronidazole after completing course on 08/10 -Check CK once weekly while on daptomycin, - (3) Severe protein-calorie malnutrition: Plan: PT has issues with PO intake, more of feeling food tastes poorly and feeling full quickle on PPN as cannot replace picc to continue tpn, eating small amounts po trying remeron and marinol as appetite stimulants GI reports no need for peg tube as patient's lack of intake is more behavior. (4) Encephalopathy: Plan: Resolved Acute encephalopathy, probably metabolic from hospital delirium, insomnia, thiamine deficiency/Wernicke's encephalopathy, renal failure, and possibly medication/antibiotic induced. Head CT scan negative and repeated on 08/20-again neg for acute Continue Seroquel 25mg qAM and 50mg qhs--> ECG with mildly prolonged QTc-follow periodically while on diflucan Continue IM Zyprexa bid prn (but has not needed now in a few days) Received thiamine 500 Mg IV every 8 x 6 doses and converted to 200 mg daily (5) Acute hypoxic respiratory failure: Plan: resolved, was 2/2 volume overload from pleural effusions from DERIK Recent echocardiogram on 06/21 showed normal EF TPN restarted on 08/24/1308/25/2023 due to 50 pound weight loss during the hospital stay. lost picc line and cannot secure another changed to ppn on 09/03 -still w/ pleural effusions (6) Acute blood loss anemia: Plan: Postoperatively from initial surgery, now anemia from renal failure, chronic disease as well, low but stable Then with active bleeding from TIJ site and hgb now down to 7.3, sinus tac hycardia, worsening encephalopathy--> transfused 1 unit PRBCs with HD on 08/17 and now hgb up to 9.5 B12, folate, iron studies normal TSH mildly elevated and free T4 mildly low-follow Received 5 units of blood this admission, most recently 09/04/23, hemoglobin no obvious source of blood loss likely nutritional in origin (7) Hard of hearing: Plan: Supportive care, wears hearing device (8) Ulcerative colitis: Plan: Patient with ulcerative colitis diagnosed by colonoscopy in 06/2023 Now status post subtotal colectomy with only rectal stump remaining No treatment at this point but will need continued surveillance for colorectal C A of the rectal stump Will need follow-up with GI as an outpatient Plan Patient with antibiotics to September 19, 2023 disposition likely will be after that Extensive discussion with the [facility] -dialysis needs to be arranged at [facility]--> [id number] discussion with physicians at [facility] system which is a more about group home type convalescent facility than a robust medical facility, they are reluctant to take the patient in transfer. Admission and Anticipated Discharge Date Admission Date: June 28, 2023 Subjective Mr Deleon has no complaints today, eating still poor, does not see any improvement for marinol start Physical Exam Physical Exam: Awake alert appropriate today has not been confused for a few days Card exam is regular lungs are clear at the bases abdomen was functioning ostomy soft no further tenderness or ecchymosis noted Results & Data Results & Data Vital Signs (Past 12 Hours) Vital Signs Temp Pulse Resp BP Pulse Ox O2 Del Method 09/05/23 07:05 98.2 F 73 16 125/63 93 Room Air Laboratory Results Reviewed CBC Reviewed chemistry PG Care Time/CCT Total # of Minutes Spent Total Time Spent with Patient: Total time spent is greater than 50% in coordination of care (as documented) at patient's floor/unit and/or counseling patient: Coding Level of Care Code 03093 SUB INP/OBS CARE 3/50MIN Diagnoses Acute kidney injury N17.9 Perforated abdominal viscus R19.8 Severe protein-calorie malnutrition E43 Encephalopathy G93.40 Acute hypoxic respiratory failure J96.01 Acute blood loss anemia D62 Bilateral hearing loss, unspecified hearing loss type H91.93 Hearing loss type: unspecified Laterality: bilateral Ulcerative pancolitis with abscess K51.014 Ulcerative colitis location: ulcerative pancolitis Digestive disease complication type: with abscess (7) Hard of hearing Hearing loss type: unspecified Laterality: bilateral Qualified Code(s): H91.93 - Unspecified hearing loss, bilateral (8) Ulcerative colitis Ulcerative colitis location: ulcerative pancolitis Digestive disease complication type: with abscess Qualified Code(s): K51.014 - Ulcerative (chronic) pancolitis with abscess
[2023-09-05] MEDS ORDERED: PERIPHERAL TPN IV SCH (16:00)
[2023-09-05] MEDS ORDERED: [UNRECOGNIZED DRUG - OTHER] IV SCH (16:00)
[2023-09-05] MEDS ORDERED: CLINOLIPID 20% IV FAT EMULSION 250 ML IV SCH (16:00)
[2023-09-05] MEDS: PERIPHERAL TPN IV SCH (16:49)
[2023-09-05] MEDS: [UNRECOGNIZED DRUG - OTHER] IV SCH (16:49)
[2023-09-05] MEDS: FLUCONAZOLE 200 MG/100 ML BAG IV SCH (20:01)
[2023-09-05] MEDS: MIRTAZAPINE TAB 15 MG TAB PO SCH (20:03)
[2023-09-05] MEDS: traMADol HCL 50 MG TABLET PO PRN (20:20)
[2023-09-05] MEDS: STOP CLINOLIPID SCH (22:15)
[2023-09-06] MEDS: PIPERACILLIN/TAZOBACTAM 4.5 GM in DEXTROSE 5% MINI-B 100 ML IV SCH ×2 (04:29→17:11)
[2023-09-06 07:02] LABS: BUN Creatinine Ratio 13.5 (10-20); Calcium 8.5 mg/dl (8.6-10.3); Creatinine Clr Calc Pharmacy 14.5 ml/min; Est GFR (African American) 19.3 ml/min; Est GFR (Non-African American) 16.6 ml/min; Magnesium 1.9 mg/dl (1.7-2.4); Phosphorus 5.4 mg/dl (2.5-4.9); Potassium 5.7 mmol/L (3.5-5.1)
[2023-09-06] MEDS: METOPROLOL TARTRATE 25 MG TAB PO SCH ×3 (11:11→21:11)
[2023-09-06] MEDS: THIAMINE HCL 100 MG TAB PO SCH (11:11)
[2023-09-06] MEDS: QUEtiapine FUMARATE 25 MG TABLET PO SCH (11:11)
[2023-09-06] MEDS: PANTOprazole 40 MG TAB PO SCH (11:11)
--- NOTE | 2023-09-06 12:02 | Nephrology Progress Note ---
Date of Service September 06, 2023 Assessment & Plan (1) Acute kidney injury: (2) Acute hypoxic respiratory failure: (3) Intra-abdominal abscess: (4) Acute blood loss anemia: (5) Megacolon, toxic: (6) Ileostomy in place: (7) Ulcerative colitis: Plan 53 y o m admitted with Toxic megacolon with new diagnosis of ulcerative colitis, s/p exploratory laparotomy on 06/28/23. Found to have multiple intra-abdominal abscesses and had multiple CT with IV contrast over last 1 month. Also has been multiple courses of antibiotic including cefepime, caspofungin, currently on Zosyn, daptomycin and fluconazole for MRSA and Pseudomonas intra-abdominal infection and abscess. Developed DERIK with volume overload prior creatinine 0.9 until 07/21/2023. Urinalysis with proteinuria but no hematuria or pyuria. Renal ultrasound was otherwise unremarkable. He was started on dialysis on 08/12/2023 via F temporary catheter and had TDC on 08/16/2023. Blood pressure, volume status acceptable. Remained oligo anuric. Creatinine continues to rise rapidly off dialysis, potassium was 5.7 this morning. --Discussed with pharmacy team to remove potassium from parenteral nutrition. --Plan for dialysis tomorrow with 2K bath. --avoid all NSAIDs --Dose medications for eGFR less than 10 Will follow. Admission and Anticipated Discharge Date Admission Date: June 28, 2023 Sean Galan was seen and evaluated this morning. He was c/o sharp pain in abdomen. Urine output remains quite low about 250 mL last 24 hours. Sharp rise in creatinine off dialysis noted, potassium was 5.7. Review of Systems Review of Systems: Detailed review of system was otherwise unremarkable. Physical Exam Constitutional: WD/WN, vitals as above + ill appearing and + cachectic; no acute distress Eyes: + anicteric sclerae Cardiovascular: RRR, no murmur, no edema Gastrointestinal (Abdomen): Ileostomy, diffuse tenderness Musculoskeletal: Extremities: extremities normal to inspection and + muscle atrophy Skin: no rashes, warm and dry Neurologic: no focal motor deficits Psychiatric: Orientation: alert and oriented x 3 Affect: euthymic affect PG Care Time/CCT Total # of Minutes Spent Total Time Spent with Patient: Total time spent is greater than 50% in coordination of care (as documented) at patient's floor/unit and/or counseling patient: Coding Level of Care Code 50188 SUB INP/OBS CARE MIN Diagnoses Acute kidney injury N17.9 Acute hypoxic respiratory failure J96.01 Intra-abdominal abscess K65.1 Acute blood loss anemia D62 Megacolon, toxic K59.[address] Z93.2 Ulcerative pancolitis with abscess K51.014 Ulcerative colitis location: ulcerative pancolitis Digestive disease complication type: with abscess (7) Ulcerative colitis Ulcerative colitis location: ulcerative pancolitis Digestive disease complication type: with abscess Qualified Code(s): K51.014 - Ulcerative (chronic) pancolitis with abscess
[2023-09-06] MEDS: MICONAZOLE NITRATE POWDER 85 GM EXT SCH ×2 (13:00→21:00)
[2023-09-06] MEDS: droNABinol 2.5 MG CAP PO SCH ×3 (13:56→21:11)
[2023-09-06] MEDS ORDERED: PERIPHERAL TPN IV SCH (16:00)
[2023-09-06] MEDS ORDERED: CLINOLIPID 20% IV FAT EMULSION 250 ML IV SCH (16:00)
[2023-09-06] MEDS ORDERED: [UNRECOGNIZED DRUG - OTHER] IV SCH (16:00)
--- NOTE | 2023-09-06 17:30 | Hospitalist Progress Note ---
Date of Service September 06, 2023 Assessment & Plan (1) Acute kidney injury: Plan: First noted 07/25-maybe ATN due to poor po intake and previous sepsis, could be OSWALDO from CT scans patient got volume overloaded with minimal response to several doses of IV diuretics Femoral vein temporary dialysis catheter placed and started on dialysis on 08/12 continues on HD [employer] consult continuing - potassium high at 5.7 on BMP today, production tool engineer requested removal of K from PPN per her note, HD planned in AM, AM BMP ordered Tunneled HD line placed 09/01/2023 (2) Perforated abdominal viscus: Plan: Recent diagnosis of Ulcerative pancolitis, and had sessile polyp biopsied along with other biopsies on a colonoscopy during previous admission. Presented with free air, to OR 06/28/23 with subtotal colon resection with rectal stump remaining, ileostomy. Three areas of perforation were identified, abscess and feculent material seen. Pseudomonas, Staphylococcus aureus, and Enterococcus faecium as well as Mariely albicans isolated. Most recent CT scan abdomen pelvis 09/03/2023 shows slight improvement of fluid collections and pleural effusions. Previous identified abnormality in wall of the stomach was not seen on the scan. Other fluid collections remained stable or slightly improved In house and tertiary Gen surgery over at [facility], reports they will not operate on patient as patient is clinically stable. Discussed with IR finding no evidence of adequate window to drain fluid collection Discussed with ID, continue antibiotics, Appreciate infectious disease recommendations -continue daptomycin, Zosyn, and renally adjusted fluconazole and is on treatment with current antibiotics antifungals through September 19, 2023 Switched cefepime to IV Zosyn 08/10 due to concern for cefepime induced neurotoxicity. - Discontinued metronidazole after completing course on 08/10 -c/o increased abdominal pain and nausea starting 09/02. CT 09/03 unrevealing. dronabinol and mirtazapine added for poor appetite. Emesis this am, exam remains benign. Afebrile and no leukocytosis last CBC. Will recheck CBC LFT lipase BMP. changed PPI to IV bid and added trial of premeal metoclopramide to see if nausea and oral intake improve. Gastric inflammation improved on CT but LUQ fluid collection/inflammation could be causing nausea and poor motility. Not on opioids. Stopped quetiapine/olanzapine since no agitation and may interact with metoclopramide. Meanwhile has been on PPN. -weekly monitoring labs CBC CMP CK while on daptomycin (3) Severe protein-calorie malnutrition: Plan: PT has issues with PO intake, more of feeling food tastes poorly and feeling full quickly - see above on PPN as cannot replace picc to continue tpn, eating small amounts po trying remeron and marinol as appetite stimulants GI reports no need for peg tube as patient's lack of intake is more behavior. (4) Encephalopathy: Plan: Resolved Acute encephalopathy, probably metabolic from hospital delirium, insomnia, thiamine deficiency/Wernicke's encephalopathy, renal failure, and possibly medication/antibiotic induced. Head CT scan negative and repeated on 08/20-again neg for acute try stopping quetiapine/olanzapine Received thiamine 500 Mg IV every 8 x 6 doses and converted to 200 mg daily (5) Acute hypoxic respiratory failure: Plan: resolved, was 2/2 volume overload from pleural effusions from DERIK Recent echocardiogram on 06/21 showed normal EF TPN restarted on 08/2408/25/2023 due to 50 pound weight loss during the hospital stay. lost picc line and cannot secure another changed to ppn on 09/03 -still w/ pleural effusions (6) Acute blood loss anemia: Plan: Postoperatively from initial surgery, now anemia from renal failure, chronic disease as well, low but stable Then with active bleeding from TIJ site and hgb now down to 7.3, sinus tachycardia, worsening encephalopathy--> transfused 1 unit PRBCs with HD on 08/17 and now hgb up to 9.5 B12, folate, iron studies normal TSH mildly elevated and free T4 mildly low-follow Received 5 units of blood this admission, most recently 09/04/23, hemoglobin no obvious source of blood loss likely nutritional in origin (7) Hard of hearing: Plan: Supportive care, wears hearing device (8) Ulcerative colitis: Plan: Patient with ulcerative colitis diagnosed by colonoscopy in 06/2023 Now status post subtotal colectomy with only rectal stump remaining No treatment at this point but will need continued surveillance for colorectal CA of the rectal stump Will need follow-up with GI as an outpatient Plan Patient with antibiotics to September 19, 2023 disposition likely will be after that Extensive discussion with the half-way system -dialysis needs to be arranged at half-way system--> [id number] discussion with physicians at [facility] half-way system which is a more about [facility] type convalescent facility than a robust medical facility, they are reluctant to take the patient in transfer. Admission and Anticipated Discharge Date Admission Date: June 28, 2023 Subjective today had emesis, has noticed increase in abdominal pain - central in location - and nausea past four days. CT unchanged 09/03. vomited his medications this AM. Physical Exam 2 Physical Exam: PHYSICAL EXAMINATION Last 24h vital signs reviewed, see documentation in flowsheet General: thin appearing man, awake lying in bed, no distress HEENT: Normocephalic, atraumatic, pupils round and equal, sclerae anicteric, no conjunctival injection, moist mucus membranes Lungs: Normal respiratory effort. Clear to auscultation bilaterally. No RRW Heart: Regular rate and rhythm, no murmurs. No JVD Tunneled HD catheter R upper chest cdi Abdomen: Soft, diffusely TTP without rrg, ileostomy RLQ thin liquid brown stool, nondistended. Bowel sounds present. Extremities: Warm, dry, well-perfused. No extremity edema. Neuro: Alert and oriented x 4, face symmetric, moves 4 extremities well Psych: Normal affect and behavior Results & Data Results & Data Laboratory Results 09/05/23 07:31 09/06/23 06:16 PG Care Time/CCT Total # of Minutes Spent Total Time Spent with Patient: Total time spent is greater than 50% in coordination of care (as documented) at patient's floor/unit and/or counseling patient: Coding Level of Care Code 98434 SUB INP/OBS CARE 2/35MIN Diagnoses Acute kidney injury N17.9 Perforated abdominal viscus R19.8 Severe protein-calorie malnutrition E43 Encephalopathy G93.40 Acute hypoxic respiratory failure J96.01 Acute blood loss anemia D62 Bilateral hearing loss, unspecified hearing loss type H91.93 Hearing loss type: unspecified Laterality: bilateral Ulcerative pancolitis with abscess K51.014 Ulcerative colitis location: ulcerative pancolitis Digestive disease complication type: with abscess (7) Hard of hearing Hearing loss type: unspecified Laterality: bilateral Qualified Code(s): H 91.93 - Unspecified hearing loss, bilateral (8) Ulcerative colitis Ulcerative colitis location: ulcerative pancolitis Digestive disease complication type: with abscess Qualified Code(s): K51.014 - Ulcerative (chronic) pancolitis with abscess
[2023-09-06] MEDS: FLUCONAZOLE 200 MG/100 ML BAG IV SCH (20:58)
[2023-09-06] MEDS: traMADol HCL 50 MG TABLET PO PRN (20:58)
[2023-09-06] MEDS: MIRTAZAPINE TAB 15 MG TAB PO SCH ×2 (20:59→21:11)
[2023-09-06] MEDS: PANTOprazole 40 MG in SYRINGE 0 ML IV SCH (21:00)
[2023-09-06] MEDS: DAPTOmycin 600 MG in SYRINGE 0 ML IV SCH (21:00)
[2023-09-06] MEDS ORDERED: ACETAMINOPHEN 1,000 MG/100 ML VIAL IV PRN (21:16)
[2023-09-06] MEDS ORDERED: LORazepam 1 MG in SYRINGE 0.5 ML IV PRN ×2 (21:18→21:24)
[2023-09-06] MEDS ORDERED: ACETAMINOPHEN 10MG/ML Custom 700 MG in EMPTY BAG 0 ML IV PRN (22:00)
[2023-09-06] MEDS: STOP CLINOLIPID SCH (22:07)
[2023-09-07] MEDS: PIPERACILLIN/TAZOBACTAM 4.5 GM in DEXTROSE 5% MINI-B 100 ML IV SCH ×2 (05:01→16:57)
[2023-09-07 07:33] LABS: Hematocrit (blood only) 29.8 % (42.0-52.0); Mean Corpuscular Hemoglobin 29.7 pg (25.0-34.0); Mean Corpuscular Hgb Conc 33.6 g/dL (32.0-36.0); Mean Corpuscular Volume 88.4 fL (80.0-100.0); Mean Platelet Volume 10.6 fL (9.4-12.4); Platelet Count 370 K/uL (130-400); RDW Coefficient of Variation 16.8 % (11.5-14.5); RDW Standard Deviation 53.2 fL (36.4-46.3); Red Blood Count 3.37 M/uL (4.70-6.10); White Blood Count 10.59 K/ul (4.8-10.8)
[2023-09-07 07:53] LABS: BUN Creatinine Ratio 15.5 (10-20); Calcium 8.4 mg/dl (8.6-10.3); Creatinine Clr Calc Pharmacy 13.1 ml/min; Est GFR (African American) 17.1 ml/min; Est GFR (Non-African American) 14.8 ml/min; Magnesium 1.9 mg/dl (1.7-2.4); Potassium 5.1 mmol/L (3.5-5.1)
[2023-09-07 09:09] LABS: Albumin Level 2.5 gm/dl (3.4-5.0); Bilirubin Direct 0.1 mg/dl (0-0.2); Bilirubin,Total 0.4 mg/dl (0.2-1.0); Total Protein 5.8 gm/dl (6.0-8.3)
--- NOTE | 2023-09-07 09:37 | XRay Report ---
KUB CLINICAL HISTORY: Vomiting. COMPARISON STUDY: CT of the abdomen and pelvis September 03, 2023. FINDINGS: Right lower quadrant ileostomy is present. Several bowel anastomoses are noted. The bowel g as pattern is normal. Although sensitivity is diminished on supine exam, there is no evidence for ross e air. The amount of stool is within normal limits. IMPRESSION: No evidence for a bowel obstruction. ACT 112: Negative or not required by law. Electronically signed by: Andres Amanda M.D. 09/07/2023 9:36 AM
--- NOTE | 2023-09-07 13:08 | Nephrology Progress Note ---
Date of Service September 07, 2023 Assessment & Plan (1) Acute kidney injury: (2) Acute hypoxic respiratory failure: (3) Intra-abdominal abscess: (4) Acute blood loss anemia: (5) Megacolon, toxic: (6) Ileostomy in place: (7) Ulcerative colitis: Plan 53 y o m admitted with Toxic megacolon with new diagnosis of ulcerative colitis, s/p exploratory laparotomy on 06/28/23. Found to have multiple intra-abdominal abscesses and had multiple CT with IV contrast over last 1 month. Also has been multiple courses of antibiotic including cefepime, caspofungin, currently on Zosyn, daptomycin and fluconazole for MRSA and Pseudomonas intra-abdominal infection and abscess. Developed DERIK with volume overload prior creatinine 0.9 until 07/21/2023. Urinalysis with proteinuria but no hematuria or pyuria. Renal ultrasound was otherwise unremarkable. He was started on dialysis on 08/12/2023 via F temporary catheter and had TDC on 08/16/2023. Remained oligo anuric. Creatinine continues to rise rapidly off dialysis. --dialysis today with 2K bath and then continue on intermittent dialysis 3 times a week. --avoid all NSAIDs --Dose medications for eGFR less than 10 Will follow. Admission and Anticipated Discharge Date Admission Date: June 28, 2023 Sean Galan was seen and evaluated during HD this morning. He was having vomiting this morning associated with abdominal pain however KUB did not show any obstruction. Urine output remains quite low and there is sharp rise in creatinine off dialysis noted, potassium was 5.7 yesterday.. Review of Systems Review of Systems: Detailed review of system was otherwise unremarkable. Physical Exam Constitutional: WD/WN, vitals as above + ill appearing and + cachectic; no acute distress Eyes: + anicteric sclerae Cardiovascular: RRR, no murmur, no edema Musculoskeletal: Extremities: extremities normal to inspection and + muscle atrophy Skin: no rashes, warm and dry Neurologic: no focal motor deficits Psychiatric: Orientation: alert and oriented x 3 Affect: euthymic affect Results & Data Vital Signs (Past 12 Hours) Vital Signs Temp Pulse Pulse Resp BP BP Pulse Ox 09/07/23 12:30 95 H 149/91 H 09/07/23 12:00 72 145/90 H 09/07/23 11:30 70 146/97 H 09/07/23 11:00 70 145/88 H 09/07/23 10:30 86 159/97 H 09/07/23 10:00 83 159/98 H 09/07/23 09:44 84 154/95 H 09/07/23 09:32 36.9 C 88 09/07/23 09:00 93 09/07/23 08:50 88 L 09/07/23 08:16 36.9 C 94 H 18 161/85 H 94 O2 Del Method O2 Flow Rate 09/07/23 12:30 09/07/23 12:00 09/07/23 11:30 09/07/23 11:00 09/07/23 10:30 09/07/23 10:00 09/07/23 09:44 09/07/23 09:32 09/07/23 09:00 Nasal Cannula 2 09/07/23 08:50 Room Air 09/07/23 08:16 Room Air PG Care Time/CCT Total # of Minutes Spent Total Time Spent with Patient: Total time spent is greater than 50% in coordination of care (as documented) at patient's floor/unit and/or counseling patient: Coding Level of Care Code 22945 SUB INP/OBS CARE 2/35MIN Diagnoses Acute kidney injury N17.9 Acute hypoxic respiratory failure J96.01 Intra-abdominal abscess K65.1 Acute blood loss anemia D62 Megacolon, toxic K59.[address] Z93.2 Ulcerative pancolitis with abscess K51.014 Ulcerative colitis location: ulcerative pancolitis Digestive disease complication type: with abscess (7) Ulcerative colitis Ulcerative colitis location: ulcerative pancolitis Digestive disease complication type: with abscess Qualified Code(s): K51.014 - Ulcerative (chronic) pancolitis with abscess
[2023-09-07] MEDS: METOCLOPRAMIDE HCL 5 MG TABLET PO SCH ×2 (13:56→13:57)
[2023-09-07] MEDS: METOPROLOL TARTRATE 25 MG TAB PO SCH ×2 (14:11→21:10)
[2023-09-07] MEDS: droNABinol 2.5 MG CAP PO SCH ×2 (14:11→21:10)
[2023-09-07] MEDS: THIAMINE HCL 100 MG TAB PO SCH (14:11)
[2023-09-07] MEDS: MICONAZOLE NITRATE POWDER 85 GM EXT SCH ×2 (14:12→21:10)
[2023-09-07] MEDS: PANTOprazole 40 MG in SYRINGE 0 ML IV SCH ×2 (14:12→21:09)
[2023-09-07] MEDS ORDERED: [UNRECOGNIZED DRUG - OTHER] IV SCH (16:00)
[2023-09-07] MEDS ORDERED: PERIPHERAL TPN IV SCH (16:00)
[2023-09-07] MEDS ORDERED: CLINOLIPID 20% IV FAT EMULSION 250 ML IV SCH (16:00)
[2023-09-07] MEDS: METOCLOPRAMIDE HCL INJ 5 MG/ML 2 ML VIAL IV SCH (17:26)
--- NOTE | 2023-09-07 17:43 | Hospitalist Progress Note ---
Date of Service September 07, 2023 Assessment & Plan (1) Acute kidney injury: Plan: First noted 07/25-maybe ATN due to poor po intake and previous sepsis, could be OSWALDO from CT scans patient got volume overloaded with minimal response to several doses of IV diuretics Femoral vein temporary dialysis catheter placed and started on dialysis on 08/12 continues on HD [employer] consulting, reviewed recs in note - increased anion gap acidosis on BMP today, uncertain significance Tunneled HD line placed 09/01/2023 (2) Perforated abdominal viscus: Plan: Recent diagnosis of Ulcerative pancolitis, and had sessile polyp biopsied along with other biopsies on a colonoscopy during previous admission. Presented with free air, to OR 06/28/23 with subtotal colon resection with rectal stump remaining, ileostomy. Three areas of perforation were identified, abscess and feculent material seen. Pseudomonas, Staphylococcus aureus, and Enterococcus faecium as well as Mariely albicans isolated. Most recent CT scan abdomen pelvis 09/03/2023 shows slight improvement of fluid collections and pleural effusions. Previous identified abnormality in wall of the stomach was not seen on the scan. Other fluid collections remained stable or slightly improved In [place] and tertiary Gen surgery over at [facility], reports they will not operate on patient as patient is clinically stable. Previously discussed with IR at [facility] and [facility] finding of LUQ fluid collection - no evidence of adequate window to drain fluid collection Appreciate infectious disease recommendations -continue daptomycin, Zosyn, and renally adjusted fluconazole and is on treatment with current antibiotics antifungals through September 19, 2023 Switched cefepime to IV Zosyn 08/10 due to concern for cefepime induced neurotoxicity. - Discontinued metronidazole after completing course on 08/10 -c/o increased abdominal pain and nausea starting 09/02. CT 09/03 unrevealing. dronabinol and mirtazapine added for poor appetite. -emesis x 1 yesterday and this am. Ordered KUB - no free air or bowel obstruction. Exam has been benign but refused exam today. -CBC notable for WBC up to 10, remains afebrile. LFT unremarkable and lipase low. -continue IV PPI bid and start trial of IV metoclopramide in case this is motility related -consider repeat CT at earlier interval -continue PPN -weekly monitoring labs CBC CMP CK while on daptomycin (3) Severe protein-calorie malnutrition: Plan: PT has issues with PO intake, more of feeling food tastes poorly and feeling full quickly - see above on PPN as cannot replace picc to continue tpn, eating small amounts po until a few days ago trying remeron and marinol as appetite stimulants, but has been refusing po meds GI reports no need for peg tube as patient's lack of intake is more behavior. (4) Encephalopathy: Plan: Resolved Acute encephalopathy, probably metabolic from hospital delirium, insomnia, thiamine deficiency/Wernicke's encephalopathy, renal failure, and possibly medication/antibiotic induced. Head CT scan negative and repeated on 08/20-again neg for acute try stopping quetiapine/olanzapine Received thiamine 500 Mg IV every 8 x 6 doses and converted to 200 mg daily (5) Acute hypoxic respiratory failure: Plan: resolved, was 2/2 volume overload from pleural effusions from DERIK Recent echocardiogram on 06/21 showed normal EF TPN restarted on 08/2408/25/2023 due to 50 pound weight loss during the hospital stay. lost picc line and cannot secure another changed to ppn on 09/03 -still w/ pleural effusions (6) Acute blood loss anemia: Plan: Postoperatively from initial surgery, now anemia from renal failure, chronic disease as well, low but stable Then with active bleeding from TIJ site and hgb now down to 7.3, sinus tachycardia, worsening encephalopathy--> transfused 1 unit PRBCs with HD on 08/17 and now hgb up to 9.5 B12, folate, iron studies normal TSH mildly elevated and free T4 mildly low-follow Received 5 units of blood this admission, most recently 09/04/23, hemoglobin no obvious source of blood loss likely nutritional in origin (7) Hard of hearing: Plan: Supportive care, wears hearing device (8) Ulcerative colitis: Plan: Patient with ulcerative colitis diagnosed by colonoscopy in 06/2023 Now status post subtotal colectomy with only rectal stump remaining No treatment at this point but will need continued surveillance for colorectal CA of the rectal stump Will need follow-up with GI as an outpatient Plan Patient with antibiotics to September 19, 2023 disposition likely will be after that Extensive discussion with the long-term system -dialysis needs to be arranged at long-term system--> [id number] discussion with physicians at [facility] system which is a more about prison type convalescent facility than a robust medical facility, they are reluctant to take the patient in transfer. Admission and Anticipated Discharge Date Admission Date: June 28, 2023 Subjective may have had emesis x 1 during dialysis this am. generalized abdominal pain unchanged. endorsed nausea. refused exam. hiding under blankets. refused po intake and po meds. Physical Exam 2 Physical Exam: PHYSICAL EXAMINATION Last 24h vital signs reviewed, see documentation in flowsheet General: thin appearing man, awake lying in bed, had blankets completely covering head HEENT: Normocephalic, atraumatic, pupils round and equal, sclerae anicteric, no conjunctival injection, moist mucus membranes Lungs: Normal respiratory effort. refused exam today Heart: "" Tunneled HD catheter R upper chest cdi Abdomen: refused Extremities: Neuro: Alert and oriented x 4, face symmetric, moves 4 extremities well Psych: irritable affect and behavior Results & Data Results & Data Vital Signs (Past 12 Hours) Vital Signs Temp Pulse Pulse Resp BP BP BP 09/07/23 16:54 36.8 C 95 H 18 150/84 H 09/07/23 13:55 36.5 C 80 151/90 H 09/07/23 13:30 64 144/87 H 09/07/23 13:00 73 156/83 H 09/07/23 12:30 95 H 149/91 H 09/07/23 12:00 72 145/90 H 09/07/23 11:30 70 146/97 H 09/07/23 11:00 70 145/88 H 09/07/23 10:30 86 159/97 H 09/07/23 10:00 83 159/98 H 09/07/23 09:44 84 154/95 H 09/07/23 09:32 36.9 C 88 09/07/23 09:00 09/07/23 08:50 09/07/23 08:16 36.9 C 94 H 18 161/85 H Pulse Ox O2 Del Method O2 Flow Rate 09/07/23 16:54 95 Nasal Cannula 2 09/07/23 13:55 09/07/23 13:30 09/07/23 13:00 09/07/23 12:30 09/07/23 12:00 09/07/23 11:30 09/07/23 11:00 09/07/23 10:30 09/07/23 10:00 09/07/23 09:44 09/07/23 09:32 09/07/23 09:00 93 Nasal Cannula 2 09/07/23 08:50 88 L Room Air 09/07/23 08:16 94 Room Air Laboratory Results 09/07/23 06:58 09/07/23 06:58 KUB X-Ray 09/07/23 08:21 KUB CLINICAL HISTORY: Vomiting. COMPARISON STUDY: CT of the abdomen and pelvis September 03, 2023. FINDINGS: Right lower quadrant ileostomy is present. Several bowel anastomoses are noted. The bowel gas pattern is normal. Although sensitivity is diminished on supine exam, there is no evidence for free air. The amount of stool is within normal limits. IMPRESSION: No evidence for a bowel obstruction. ACT 112: Negative or not required by law. Electronically signed by: Andres Amanda M.D. 09/07/2023 9:36 AM PG Care Time/CCT Total # of Minutes Spent Total Time Spent with Patient: Total time spent is greater than 50% in coordination of care (as documented) at patient's floor/unit and/or counseling patient: Coding Level of Care Code 19042 SUB INP/OBS CARE 2/35MIN Diagnoses Acute kidney injury N17.9 Perforated abdominal viscus R19.8 Severe protein-calorie malnutrition E43 Encephalopathy G93.40 Acute hypoxic respiratory failure J96.01 Acute blood loss anemia D62 Bilateral hearing loss, unspecified hearing loss type H91.93 Hearing loss type: unspecified Laterality: bilateral Ulcerative pancolitis with abscess K51.014 Ulcerative colitis location: ulcerative pancolitis Digestive disease complication type: with abscess (7) Hard of hearing Hearing loss type: unspecified Laterality: bilateral Qualified Code(s): H 91.93 - Unspecified hearing loss, bilateral (8) Ulcerative colitis Ulcerative colitis location: ulcerative pancolitis Digestive disease complication type: with abscess Qualified Code(s): K51.014 - Ulcerative (chronic) pancolitis with abscess
[2023-09-07] MEDS: FLUCONAZOLE 200 MG/100 ML BAG IV SCH (21:09)
[2023-09-07] MEDS: MIRTAZAPINE TAB 15 MG TAB PO SCH (21:10)
[2023-09-07] MEDS: STOP CLINOLIPID SCH (23:08)
[2023-09-08] MEDS: PIPERACILLIN/TAZOBACTAM 4.5 GM in DEXTROSE 5% MINI-B 100 ML IV SCH ×2 (04:27→17:09)
[2023-09-08 07:43] LABS: BUN Creatinine Ratio 12.9 (10-20); Calcium 8.3 mg/dl (8.6-10.3); Creatinine Clr Calc Pharmacy 21.2 ml/min; Est GFR (African American) 30.6 ml/min; Est GFR (Non-African American) 26.4 ml/min; Magnesium 1.9 mg/dl (1.7-2.4); Phosphorus 3.9 mg/dl (2.5-4.9)
[2023-09-08] MEDS: METOPROLOL TARTRATE 25 MG TAB PO SCH (08:30)
[2023-09-08] MEDS: THIAMINE HCL 100 MG TAB PO SCH (08:30)
[2023-09-08] MEDS: METOCLOPRAMIDE HCL INJ 5 MG/ML 2 ML VIAL IV SCH ×3 (08:31→16:58)
[2023-09-08] MEDS: PANTOprazole 40 MG in SYRINGE 0 ML IV SCH ×2 (09:24→20:10)
[2023-09-08] MEDS: MICONAZOLE NITRATE POWDER 85 GM EXT SCH ×2 (09:24→20:09)
--- NOTE | 2023-09-08 10:46 | Nephrology Progress Note ---
Date of Service September 08, 2023 Assessment & Plan (1) Acute kidney injury: (2) Acute hypoxic respiratory failure: (3) Intra-abdominal abscess: (4) Acute blood loss anemia: (5) Megacolon, toxic: (6) Ileostomy in place: (7) Ulcerative colitis: Plan 53 y o m admitted with Toxic megacolon with new diagnosis of ulcerative colitis, s/p exploratory laparotomy on 06/28/23. Found to have multiple intra-abdominal abscesses and had multiple CT with IV contrast over last 1 month. Also has been multiple courses of antibiotic including cefepime, caspofungin, currently on Zosyn, daptomycin and fluconazole for MRSA and Pseudomonas intra-abdominal infection and abscess. Developed DERIK with volume overload prior creatinine 0.9 until 07/21/2023. Urinalysis with proteinuria but no hematuria or pyuria. Renal ultrasound was otherwise unremarkable. He was started on dialysis on 08/12/2023 via F temporary catheter and had TDC on 08/16/2023. Remained oligo anuric. Creatinine continues to rise rapidly off dialysis. --continue on intermittent dialysis 3 times a week, plan for dialysis tomorrow. --avoid all NSAIDs --Dose medications for eGFR less than 10 Will follow. Admission and Anticipated Discharge Date Admission Date: June 28, 2023 Sean Galan was seen and evaluated this morning. He was c/o ongoing pain in abdomen and nausea with oral meds Urine output remains quite low about 250 mL last 24 hours. Had HD yesterday. Review of Systems Review of Systems: Detailed review of system was otherwise unremarkable. Physical Exam Constitutional: WD/WN, vitals as above + ill appearing and + cachectic; no acute distress Eyes: + anicteric sclerae Cardiovascular: RRR, no murmur, no edema Musculoskeletal: Extremities: extremities normal to inspection and + muscle atrophy Skin: no rashes, warm and dry Neurologic: no focal motor deficits Psychiatric: Orientation: alert and oriented x 3 Affect: euthymic affect Results & Data Vital Signs (Past 12 Hours) Vital Signs Temp Pulse Resp BP Pulse Ox O2 Del Method 09/08/23 08:10 36.9 C 77 16 148/83 H 94 Room Air 09/08/23 04:49 92 Room Air PG Care Time/CCT Total # of Minutes Spent Total Time Spent with Patient: Total time spent is greater than 50% in coordination of care (as documented) at patient's floor/unit and/or counseling patient: Coding Level of Care Code 46951 SUB INP/OBS CARE MIN Diagnoses Acute kidney injury N17.9 Acute hypoxic respiratory failure J96.01 Intra-abdominal abscess K65.1 Acute blood loss anemia D62 Megacolon, toxic K59.[address] Z93.2 Ulcerative pancolitis with abscess K51.014 Ulcerative colitis location: ulcerative pancolitis Digestive disease complication type: with abscess (7) Ulcerative colitis Ulcerative colitis location: ulcerative pancolitis Digestive disease complication type: with abscess Qualified Code(s): K51.014 - Ulcerative (chronic) pancolitis with abscess
--- NOTE | 2023-09-08 10:52 | Pharmacy Report ---
Pharmacy PN Follow-up Note - Date of Service September 08, 2023 - Subjective Patient is currently on day #[] of [PPN][TPN] for [Indication]. - Objective Height & Weight (Last Documented) Height 5 ft 9 in Weight 46.6 kg Diet Order(s) 09/01/23 Lunch Diet Intake & Ouput (24hrs) 09/07/23 09/08/23 09/09/23 06:59 06:59 06:59 Intake Total 2395.555 / 2395.555 2299.2 / 2299.2 100 / 100 Output Total 950 / 950 625 / 625 Balance 1445.555 / 9904.043 3005.2 / 1674.2 100 / 100 Selected Laboratory Results 09/08/23 06:49 Sodium 138 Potassium 4.0 D Chloride 102 Carbon Dioxide 26 Anion Gap 10 BUN 34 H D Creatinine 2.63 H D Est GFR ( Amer) 30.6 Est GFR (Non-Af Amer) 26.4 BUN/Creatinine Ratio 12.9 Glucose 130 H Calcium 8.3 L Phosphorus 3.9 D Magnesium 1.9 - Assessment & Plan Assessment: * 09/08: * Patient remains on PPN, as PICC line was unable to be replaced * Electrolyte fluctuations over the weekend given prolonged period of time without HD * Last hemodialysis session yesterday 09/07/23 * Will increase electrolytes back to prior amounts today * Triglycerides remain marginally elevated at 209 mg/dL - will continue lipids for now to increase calories * 09/03: * PICC line not able to be salvaged by IV team, peripheral line placed. TPN placed on hold last night. D5NS+ 20K started by provider. * Provider requested initiation of PPN as there are currently no plans for central line placement * Appreciate recommendations per dietary. * Phosphate/calcium precipitate: Calcium removed from TPN today, corrected calcium based on albumin within goal range. * Hemodialysis today after abdominal CT * Triglycerides stable, continue with lipids. Next level ordered for 09/07 * 09/02: * Occluded PICC and HD lines noted 08/31. PICC was able to be successfully managed w cathflo, but dialysis cath was surgically changed yesterday. HD yesterday w next planned tomorrow. * Precipiate noted on 08/31 below the TPN filter - use caution with electrolytes in TPN, especially calcium and phos * Will target lower doses of potassium, phosphate, and magnesium in TPN due to HD patient * May adjust sodium from acetate to chloride tomorrow due to shortage * Triglycerides 253 yesterday, but still less than 400. Will re-order for tomorrow with hope to defer ongoing monitoring until after holiday weekend. * 08/30: * TPN was held yesterday for hypophosphatemia (1.5 mg/dL). Received 30 mmol of Sodium Phosphate yesterday and phosphorus is 4.0 mg/dL this AM. * Other electrolytes review; only noted mild hyperchloremia and low serum CO2 . Will limit chloride in TPN as much as possible. * Per Nephrology: "Remains dialysis dependent. Please minimize volume as best you can." Next HD session scheduled for 08/31/23. * Will check triglycerides again Wednesday (09/01/23); TG have been elevated, likely unnecessary to hold unless > 400 per ASPEN recs * Patient is currently at target macronutrients per Dietary recs. Plan: * For Day #14 of PN administration (PPN Day #1), the following will be ordered: * Macronutrients: * Amino Acids: 71 grams/day * Dextrose: 84 grams/day * Lipids: 50 grams/day * Micronutrients: * Sodium phosphate: 30 mMol/day * Sodium chloride: 100 mEq/day * Potassium acetate: 80 mEq/day * Magnesium sulfate: 8.12 mEq/day * Multivitamins: 10 mL/day * Trace elements: 1 mL/day * Folic acid: 1 mg/day * Total volume of 1783 mL (1680 mL Clinimix + 250 mL Lipids) will be infused over 24 hours and will provide 1071 kcal/day * Labs will be ordered per PN protocol. * Pharmacy will follow and adjust PN orders on a daily basis. Thank you!
[2023-09-08] MEDS: droNABinol 2.5 MG CAP PO SCH ×2 (11:52→20:09)
[2023-09-08] MEDS ORDERED: CLINOLIPID 20% IV FAT EMULSION 250 ML IV SCH (16:00)
[2023-09-08] MEDS ORDERED: [UNRECOGNIZED DRUG - OTHER] IV SCH (16:00)
[2023-09-08] MEDS ORDERED: PERIPHERAL TPN IV SCH (16:00)
--- NOTE | 2023-09-08 17:55 | Hospitalist Progress Note ---
Date of Service September 08, 2023 Assessment & Plan (1) Acute kidney injury: Plan: First noted 07/25-maybe ATN due to poor po intake and previous sepsis, could be OSWALDO from CT scans patient got volume overloaded with minimal response to several doses of IV diuretics Femoral vein temporary dialysis catheter placed and started on dialysis on 08/12 continues on HD [employer], reviewed recs in note - increased anion gap acidosis has resolved on today's BMP - dialysis planned for tomorrow Tunneled HD line placed 09/01/2023 (2) Perforated abdominal viscus: Plan: Recent diagnosis of Ulcerative pancolitis, and had sessile polyp biopsied along with other biopsies on a colonoscopy during previous admission. Presented with free air, to OR 06/28/23 with subtotal colon resection with rectal stump remaining, ileostomy. Three areas of perforation were identified, abscess and feculent material seen. Pseudomonas, Staphylococcus aureus, and Enterococcus faecium as well as Mariely albicans isolated. Most recent CT scan abdomen pelvis 09/03/2023 shows slight improvement of fluid collections and pleural effusions. Previous identified abnormality in wall of the stomach was not seen on the scan. Other fluid collections remained stable or slightly improved In [place] and tertiary Gen surgery over at [facility], reports they will not operate on patient as patient is clinically stable. Previously discussed with IR at [place] and [facility] finding of LUQ fluid collection - no evidence of adequate window to drain fluid collection Appreciate infectious disease recommendations -continue daptomycin, Zosyn, and renally adjusted fluconazole and is on treatment with current antibiotics antifungals through September 19, 2023 Switched cefepime to IV Zosyn 08/10 due to concern for cefepime induced neurotoxicity. - Discontinued metronidazole after completing course on 08/10 -c/o increased abdominal pain and nausea starting 09/02. CT 09/03 unrevealing. dronabinol and mirtazapine added for poor appetite, though has been frequently refusing oral meds so has not had an adequate trial yet. - infrequent emesis last few days though not today. 09/07 KUB - no free air or bowel obstruction. -CBC notable for WBC up to 10, remains afebrile. LFT unremarkable and lipase low. a.m. CBC -continue IV PPI bid and start trial of IV metoclopramide in case this is motility related ordered - has now had a few doses, possibly some improvement -consider repeat CT at earlier interval -continue PPN - has been on this 1 week, max 14 days if not eating by next week will need alternate solutions such as new central line for TPN or feeding tube -weekly monitoring labs CBC CMP CK while on daptomycin (3) Severe protein-calorie malnutrition: Plan: PT has issues with PO intake, more of feeling food tastes poorly and feeling full quickly - see above on PPN as cannot replace picc to continue tpn, eating small amounts po until a few days ago trying remeron and marinol as appetite stimulants, but has been refusing po meds having trial of metoclopramide as above GI reports no need for peg tube as patient's lack of intake is more behavior. (4) Encephalopathy: Plan: Resolved Acute encephalopathy, probably metabolic from hospital delirium, insomnia, thiamine deficiency/Wernicke's encephalopathy, renal failure, and possibly medication/antibiotic induced. Head CT scan negative and repeated on 08/20-again neg for acute Received thiamine 500 Mg IV every 8 x 6 doses and converted to 200 mg daily try stopping quetiapine/olanzapine - had been refusing oral doses and not getting as needed olanzapine in quite a while (5) Acute hypoxic respiratory failure: Plan: resolved, was 2/2 volume overload from pleural effusions from DERIK Recent echocardiogram on 06/21 showed normal EF TPN restarted on 08/24/1308/25/2023 due to 50 pound weight loss during the hospital stay. lost picc line and cannot secure another changed to ppn on 09/03 -still w/ pleural effusions (6) Acute blood loss anemia: Plan: Postoperatively from initial surgery, now anemia from renal failure, chronic disease as well, low but stable Then with active bleeding from TIJ site and hgb now down to 7.3, sinus tachycardia, worsening encephalopathy--> transfused 1 unit PRBCs with HD on 08/17 and now hgb up to 9.5 B12, folate, iron studies normal TSH mildly elevated and free T4 mildly low-follow Received 5 units of blood this admission, most recently 09/04/23, hemoglobin no obvious source of blood loss likely nutritional in origin, also phlebotomy (7) Hard of hearing: Plan: Supportive care, wears hearing device (8) Ulcerative colitis: Plan: Patient with ulcerative colitis diagnosed by colonoscopy in 06/2023 Now status post subtotal colectomy with only rectal stump remaining No treatment at this point but will need continued surveillance for colorectal CA of the rectal stump Will need follow-up with GI as an outpatient Plan Patient with antibiotics to September 19, 2023 disposition likely will be after that Extensive discussion with the [facility] -dialysis needs to be arranged at [facility]--> [id number] discussion with physicians at [facility] system which is a more about care home type convalescent facility than a robust medical facility, they are reluctant to take the patient in transfer. Admission and Anticipated Discharge Date Admission Date: June 28, 2023 Subjective Had refused morning dose of IV Reglan, later in the day some progress however agreed to take oral medications Reglan and had at least a few sips of liquids he says what is the point of trying to eat or drink anything when it is going to cause stomach to hurt, points to epigastric area Physical Exam 2 Physical Exam: PHYSICAL EXAMINATION Last 24h vital signs reviewed, see documentation in flowsheet General: thin chronically ill-appearing man awake alert more engaging today HEENT: Normocephalic, atraumatic, pupils round and equal, sclerae anicteric, no conjunctival injection, moist mucus membranes Lungs: clear to auscultation bilaterally no rhonchi rales or wheezes normal respiratory effort Heart: regular no murmurs rubs or gallops Tunneled HD catheter R upper chest cdi Abdomen: scaphoid, nondistended, nontender to palpation no rebound rigidity or guarding, active bowel sounds present, midline surgical incision has healed well, right lower quadrant ostomy with pink stoma light brown stool Extremities: sarcopenia present, warm well-perfused no edema Neuro: Alert and oriented x 4, face symmetric, moves 4 extremities well Psych: makes eye contact today, more normal affect and behavior Results & Data Results & Data Vital Signs (Past 12 Hours) Vital Signs Temp Pulse Resp BP Pulse Ox O2 Del Method 09/08/23 16:30 36.9 C 76 16 148/83 H 96 Room Air 09/08/23 08:10 36.9 C 77 16 148/83 H 94 Room Air Laboratory Results 09/07/23 06:58 09/08/23 06:49 PG Care Time/CCT Total # of Minutes Spent Total Time Spent with Patient: Total time spent is greater than 50% in coordination of care (as documented) at patient's floor/unit and/or counseling patient: Coding Level of Care Code 91051 SUB INP/OBS CARE 35MIN Diagnoses Acute kidney injury N17.9 Perforated abdominal viscus R19.8 Severe protein-calorie malnutrition E43 Encephalopathy G93.40 Acute hypoxic respiratory failure J96.01 Acute blood loss anemia D62 Bilateral hearing loss, unspecified hearing loss type H91.93 Hearing loss type: unspecified Laterality: bilateral Ulcerative pancolitis with abscess K51.014 Ulcerative colitis location: ulcerative pancolitis Digestive disease complication type: with abscess (7) Hard of hearing Hearing loss type: unspecified Laterality: bilateral Qualified Code(s): H 91.93 - Unspecified hearing loss, bilateral (8) Ulcerative colitis Ulcerative colitis location: ulcerative pancolitis Digestive disease complication type: with abscess Qualified Code(s): K51.014 - Ulcerative (chronic) pancolitis with abscess
[2023-09-08] MEDS: MIRTAZAPINE TAB 15 MG TAB PO SCH (20:09)
[2023-09-08] MEDS: DAPTOmycin 600 MG in SYRINGE 0 ML IV SCH (21:15)
[2023-09-08] MEDS: FLUCONAZOLE 200 MG/100 ML BAG IV SCH (21:15)
[2023-09-08] MEDS: STOP CLINOLIPID SCH (22:22)
[2023-09-09] MEDS: PIPERACILLIN/TAZOBACTAM 4.5 GM in DEXTROSE 5% MINI-B 100 ML IV SCH ×2 (03:55→16:22)
[2023-09-09 07:36] LABS: Hematocrit (blood only) 29.1 % (42.0-52.0); Hemoglobin 9.9 g/dl (14.0-18.0); Mean Corpuscular Hemoglobin 30.2 pg (25.0-34.0); Mean Corpuscular Volume 88.7 fL (80.0-100.0); Mean Platelet Volume 10.4 fL (9.4-12.4); Platelet Count 349 K/uL (130-400); RDW Coefficient of Variation 16.1 % (11.5-14.5); RDW Standard Deviation 51.6 fL (36.4-46.3); Red Blood Count 3.28 M/uL (4.70-6.10); White Blood Count 7.67 K/ul (4.8-10.8)
[2023-09-09 07:50] LABS: BUN Creatinine Ratio 15.9 (10-20); Calcium 8.4 mg/dl (8.6-10.3); Creatinine Clr Calc Pharmacy 18.4 ml/min; Est GFR (African American) 25.9 ml/min; Est GFR (Non-African American) 22.3 ml/min; Phosphorus 5.7 mg/dl (2.5-4.9); Potassium 4.7 mmol/L (3.5-5.1)
[2023-09-09 08:05] LABS: Thyroid Stimulating Hormone 6.735 uIu/ml (0.300-4.500)
[2023-09-09] MEDS: MICONAZOLE NITRATE POWDER 85 GM EXT SCH ×2 (08:40→20:32)
[2023-09-09] MEDS: THIAMINE HCL 100 MG TAB PO SCH (08:40)
[2023-09-09 08:41] LABS: T4 Free Thyroxine 0.66 ng/dl (0.61-1.60)
[2023-09-09] MEDS: PANTOprazole 40 MG in SYRINGE 0 ML IV SCH ×2 (08:41→20:34)
[2023-09-09] MEDS: METOCLOPRAMIDE HCL INJ 5 MG/ML 2 ML VIAL IV SCH ×3 (08:41→16:24)
[2023-09-09] MEDS: traMADol HCL 50 MG TABLET PO PRN (08:45)
[2023-09-09 10:03] LABS: HBSAG NON-REACTIVE (NON-REACTIVE)
[2023-09-09] MEDS ORDERED: EPOETIN ALFA 10,000 UNITS/ML VIAL IV STA (10:49)
--- NOTE | 2023-09-09 10:49 | Nephrology Progress Note ---
Date of Service September 09, 2023 Assessment & Plan (1) Acute kidney injury: (2) Acute hypoxic respiratory failure: (3) Intra-abdominal abscess: (4) Acute blood loss anemia: (5) Megacolon, toxic: (6) Ileostomy in place: (7) Ulcerative colitis: Plan 53 y o m admitted with Toxic megacolon with new diagnosis of ulcerative colitis, s/p exploratory laparotomy on 06/28/23. Found to have multiple intra-abdominal abscesses and had multiple CT with IV contrast over last 1 month. Also has been multiple courses of antibiotic including cefepime, caspofungin, currently on Zosyn, daptomycin and fluconazole for MRSA and Pseudomonas intra-abdominal infection and abscess. Developed DERIK with volume overload prior creatinine 0.9 until 07/21/2023. Urinalysis with proteinuria but no hematuria or pyuria. Renal ultrasound was otherwise unremarkable. He was started on dialysis on 08/12/2023 via F temporary catheter and had TDC on 08/16/2023. Remained oligo anuric. Creatinine continues to rise rapidly off dialysis. Blood pressure relatively high. --Dialysis today and then continue on intermittent dialysis 3 times a week. --avoid all nephrotoxic medications and NSAIDs --Dose medications for eGFR less than 10 Will follow. Admission and Anticipated Discharge Date Admission Date: June 28, 2023 Sean Galan was seen and evaluated this morning. He seemed comfortable however he did c/o ongoing pain in abdomen and nausea with oral meds. Urine output remains quite low about 250 to 300 mL/24 hours. Creatinine continues to rise in between dialysis. Review of Systems Review of Systems: Detailed review of system was otherwise unremarkable. Physical Exam Constitutional: WD/WN, vitals as above + ill appearing and + cachectic; no acute distress Eyes: + anicteric sclerae Cardiovascular: RRR, no murmur, no edema Musculoskeletal: Extremities: extremities normal to inspection and + muscle atrophy Skin: no rashes, warm and dry Neurologic: no focal motor deficits Psychiatric: Orientation: alert and oriented x 3 Affect: euthymic affect Results & Data Vital Signs (Past 12 Hours) Vital Signs Temp Pulse Pulse Pulse Resp BP BP 09/09/23 09:17 80 148/96 H 09/09/23 09:11 36.8 C 84 74 09/09/23 08:03 37.0 C 74 16 163/88 H Pulse Ox O2 Del Method 09/09/23 09:17 09/09/23 09:11 09/09/23 08:03 97 Room Air PG Care Time/CCT Total # of Minutes Spent Total Time Spent with Patient: Total time spent is greater than 50% in coordination of care (as documented) at patient's floor/unit and/or counseling patient: Coding Level of Care Code 81021 SUB INP/OBS CARE 2/35MIN Diagnoses Acute kidney injury N17.9 Acute hypoxic respiratory failure J96.01 Intra-abdominal abscess K65.1 Acute blood loss anemia D62 Megacolon, toxic K59.[address] Z93.2 Ulcerative pancolitis with abscess K51.014 Ulcerative colitis location: ulcerative pancolitis Digestive disease complication type: with abscess (7) Ulcerative colitis Ulcerative colitis location: ulcerative pancolitis Digestive disease complication type: with abscess Qualified Code(s): K51.014 - Ulcerative (chronic) pancolitis with abscess
[2023-09-09] MEDS: amLODIPine BESYLATE 5 MG TAB PO SCH (13:46)
[2023-09-09] MEDS: droNABinol 2.5 MG CAP PO SCH ×2 (13:53→16:22)
[2023-09-09] MEDS ORDERED: [UNRECOGNIZED DRUG - OTHER] IV SCH (16:00)
[2023-09-09] MEDS ORDERED: CLINOLIPID 20% IV FAT EMULSION 250 ML IV SCH (16:00)
[2023-09-09] MEDS ORDERED: PERIPHERAL TPN IV SCH (16:00)
[2023-09-09] MEDS ORDERED: MoRPHine SULFATE 2 MG/ML CARP IV PRN (17:47)
--- NOTE | 2023-09-09 17:58 | Hospitalist Progress Note ---
Date of Service September 09, 2023 Assessment & Plan (1) Perforated abdominal viscus: Plan: Recent diagnosis of Ulcerative pancolitis, and had sessile polyp biopsied along with other biopsies on a colonoscopy during previous admission. Presented with free air, to OR 06/28/23 with subtotal colon resection with rectal stump remaining, ileostomy. Three areas of perforation were identified, abscess and feculent material seen. Pseudomonas, Staphylococcus aureus, and Enterococcus faecium as well as Mariely albicans isolated. Most recent CT scan abdomen pelvis 09/03/2023 shows slight improvement of fluid collections and pleural effusions. Previous identified abnormality in wall of the stomach was not seen on the scan. Other fluid collections remained stable or slightly improved In [place] and tertiary [facility] surgery over at [facility], reports they will not operate on patient as patient is clinically stable. Previously discussed with IR at [place] and [facility] finding of LUQ fluid collection - no evidence of adequate window to drain fluid collection Appreciate infectious disease recommendations -continue daptomycin, Zosyn, and renally adjusted fluconazole and is on treatment with current antibiotics antifungals through September 19, 2023 Switched cefepime to IV Zosyn 08/10 due to concern for cefepime induced neurotoxicity. -Discontinued metronidazole after completing course on 08/10 -c/o increased abdominal pain and nausea starting 09/02. CT 09/03 unrevealing. dronabinol and mirtazapine added for poor appetite, now taking these possibly with some improvement -continue IV PPI bid and trial of IV metoclopramide in case this is motility related, added Carafate -Consider upper GI series/small bowel follow-through -consider repeat CT at earlier interval, due first week of September to follow-up infection, need to reengage ID at that time -continue PPN - has been on this 1 week, max 14 days if not eating by next week will need alternate solutions such as new central line for TPN or feeding tube -weekly monitoring labs CBC CMP CK while on daptomycin -Ordered CK check for today and next a.m. (2) Acute kidney injury: Plan: First noted 07/25-maybe ATN due to poor po intake and previous sepsis, could be OSWALDO from CT scans patient got volume overloaded with minimal response to several doses of IV diuretics Femoral vein temporary dialysis catheter placed and started on dialysis on 08/12 continues on HD [employer], reviewed recs in note - dialysis was done today without incident Tunneled HD line placed 09/01/2023 (3) Severe protein-calorie malnutrition: Plan: Complains of upper abdominal pain with intake of food and liquids, food tasting poorly, however appetite has improved on PPN as cannot replace picc to continue tpn, eating small amounts po until last week See discussion above GI reports no need for peg tube as patient's lack of intake is more behavior. (4) Encephalopathy: Plan: Resolved Acute encephalopathy, probably metabolic from hospital delirium, insomnia, thiamine deficiency/Wernicke's encephalopathy, renal failure, and possibly medication/antibiotic induced. Head CT scan negative and repeated on 08/20-again neg for acute Received thiamine 500 Mg IV every 8 x 6 doses and converted to 200 mg daily try stopping quetiapine/olanzapine - had been refusing oral doses and not getting as needed olanzapine in quite a while (5) Acute hypoxic respiratory failure: Plan: resolved, was 2/2 volume overload from pleural effusions from DERIK Recent echocardiogram on 06/21 showed normal EF TPN restarted on 08/24/1308/25/2023 due to 50 pound weight loss during the hospital stay. lost picc line and cannot secure another changed to ppn on 09/03 -still w/ pleural effusions (6) Acute blood loss anemia: Plan: Postoperatively from initial surgery, now anemia from renal failure, chronic disease as well, low but stable Then with active bleeding from TIJ site and hgb now down to 7.3, sinus tachycardia, worsening encephalopathy--> transfused 1 unit PRBCs with HD on 08/17 and now hgb up to 9.5 B12, folate, iron studies normal TSH mildly elevated and free T4 mildly low-follow Received 5 units of blood this admission, most recently 09/04/23, hemoglobin no obvious source of blood loss likely nutritional in origin, also phlebotomy (7) Hard of hearing: Plan: Supportive care, wears hearing device (8) Ulcerative colitis: Plan: Patient with ulcerative colitis diagnosed by colonoscopy in 06/2023 Now status post subtotal colectomy with only rectal stump remaining No treatment at this point but will need continued surveillance for colorectal CA of the rectal stump Will need follow-up with GI as an outpatient Plan Hypertensionhas been on metoprolol, changed to amlodipine in case the metoprolol is having a general depressant effect Patient with antibiotics to September 19, 2023 disposition likely will be after that Extensive discussion with the [facility] -d[facility] to [facility] arranged at [facility]--> [id number] discussion with physicians at [facility] system which is a more about [facility] type convalescent facility than a robust medical facility, they are reluctant to take the patient in transfer. Admission and Anticipated Discharge Date Admission Date: June 28, 2023 Subjective Continues to have increased epigastric pain after drinking liquids or eating, however, has started to eat a little bit since dinner yesterday. Says he does not have pain when he does not eat or drink anything States that he is hungry and he has an appetite Physical Exam 2 Physical Exam: PHYSICAL EXAMINATION Last 24h vital signs reviewed, see documentation in flowsheet General: Sitting up on edge of bed alert, I looked at his lunch tray he had a couple bites of sandwich HEENT: Normocephalic, atraumatic, pupils round and equal, sclerae anicteric, no conjunctival injection, moist mucus membranes Lungs: Normal respiratory effort Heart: Deferred Tunneled HD catheter R upper chest cdi Abdomen: scaphoid, nondistended Extremities: sarcopenia present, warm well-perfused no edema Neuro: Alert and oriented x 4, face symmetric, moves 4 extremities well Psych: makes eye contact, more engaged than a few days ago, more normal affect and behavior Results & Data Results & Data Vital Signs (Past 12 Hours) Vital Signs Temp Pulse Pulse Pulse Resp BP BP 09/09/23 15:16 36.6 C 100 H 16 134/87 09/09/23 13:28 36.5 C 69 150/89 H 09/09/23 13:00 74 155/95 H 09/09/23 12:30 71 140/97 09/09/23 12:00 68 151/96 H 09/09/23 11:30 88 144/98 H 09/09/23 11:00 72 144/97 H 09/09/23 10:30 72 142/98 H 09/09/23 10:00 98 H 156/103 H 09/09/23 09:30 79 152/91 H 09/09/23 09:17 80 148/96 H 09/09/23 09:11 36.8 C 84 74 09/09/23 08:03 37.0 C 74 16 BP Pulse Ox O2 Del Method 09/09/23 15:16 98 Room Air 09/09/23 13:28 09/09/23 13:00 09/09/23 12:30 09/09/23 12:00 09/09/23 11:30 09/09/23 11:00 09/09/23 10:30 09/09/23 10:00 09/09/23 09:30 09/09/23 09:17 09/09/23 09:11 09/09/23 08:03 163/88 H 97 Room Air Laboratory Results 09/09/23 07:17 09/09/23 07:17 PG Care Time/CCT Total # of Minutes Spent Total Time Spent with Patient: Total time spent is greater than 50% in coordination of care (as documented) at patient's floor/unit and/or counseling patient: Coding Level of Care Code 34081 SUB INP/OBS CARE 235MIN Diagnoses Perforated abdominal viscus R19.8 Acute kidney injury N17.9 Severe protein-calorie malnutrition E43 Encephalopathy G93.40 Acute hypoxic respiratory failure J96.01 Acute blood loss anemia D62 Bilateral hearing loss, unspecified hearing loss type H91.93 Hearing loss type: unspecified Laterality: bilateral Ulcerative pancolitis with abscess K51.014 Ulcerative colitis location: ulcerative pancolitis Digestive disease complication type: with abscess (7) Hard of hearing Hearing loss type: unspecified Laterality: bilateral Qualified Code(s): H 91.93 - Unspecified hearing loss, bilateral (8) Ulcerative colitis Ulcerative colitis location: ulcerative pancolitis Digestive disease complication type: with abscess Qualified Code(s): K51.014 - Ulcerative (chronic) pancolitis with abscess
[2023-09-09] MEDS: FLUCONAZOLE 200 MG/100 ML BAG IV SCH (20:30)
[2023-09-09] MEDS: MIRTAZAPINE TAB 15 MG TAB PO SCH (20:33)
[2023-09-09] MEDS: SUCRALFATE 1 GM/10 ML UDC PO SCH (21:08)
[2023-09-09] MEDS: STOP CLINOLIPID SCH (22:41)
[2023-09-10] MEDS: PIPERACILLIN/TAZOBACTAM 4.5 GM in DEXTROSE 5% MINI-B 100 ML IV SCH ×2 (03:53→15:30)
[2023-09-10] MEDS: SUCRALFATE 1 GM/10 ML UDC PO SCH ×4 (08:42→19:56)
[2023-09-10] MEDS: METOCLOPRAMIDE HCL INJ 5 MG/ML 2 ML VIAL IV SCH ×3 (08:43→15:30)
[2023-09-10] MEDS: MICONAZOLE NITRATE POWDER 85 GM EXT SCH ×2 (08:44→19:57)
[2023-09-10] MEDS: PANTOprazole 40 MG in SYRINGE 0 ML IV SCH ×2 (08:44→19:56)
[2023-09-10] MEDS: amLODIPine BESYLATE 5 MG TAB PO SCH (08:45)
[2023-09-10] MEDS: THIAMINE HCL 100 MG TAB PO SCH (08:45)
[2023-09-10] MEDS: droNABinol 2.5 MG CAP PO SCH ×2 (11:18→15:46)
--- NOTE | 2023-09-10 15:59 | Nephrology Progress Note ---
Date of Service September 10, 2023 Assessment & Plan (1) Acute kidney injury: (2) Acute hypoxic respiratory failure: (3) Intra-abdominal abscess: (4) Acute blood loss anemia: (5) Megacolon, toxic: (6) Ileostomy in place: (7) Ulcerative colitis: Plan 53 y o m admitted with Toxic megacolon with new diagnosis of ulcerative colitis, s/p exploratory laparotomy on 06/28/23. Found to have multiple intra-abdominal abscesses and had multiple CT with IV contrast over last 1 month. Also has been multiple courses of antibiotic including cefepime, caspofungin, currently on Zosyn, daptomycin and fluconazole for MRSA and Pseudomonas intra-abdominal infection and abscess. Developed DERIK with volume overload prior creatinine 0.9 until 07/21/2023. Urinalysis with proteinuria but no hematuria or pyuria. Renal ultrasound was otherwise unremarkable. He was started on dialysis on 08/12/2023 via F temporary catheter and had TDC on 08/16/2023. Creatinine continues to rise rapidly off dialysis and UO remains low. Blood pressure relatively high. Po intake poor, on PPN --continue on intermittent dialysis on TTS --avoid all nephrotoxic medications and NSAIDs --Dose medications for eGFR less than 10 Will follow. Admission and Anticipated Discharge Date Admission Date: June 28, 2023 Sean Galan was seen and evaluated this morning. He was comfortable but has ongoing pain in abdomen and nausea with oral intake. Urine output remains quite low about 250 to 300 mL/24 hours. Had dialysis yesterday. Review of Systems Review of Systems: Detailed review of system was otherwise unremarkable. Physical Exam Constitutional: WD/WN, vitals as above + ill appearing and + cachectic; no acute distress Eyes: + anicteric sclerae Cardiovascular: RRR, no murmur, no edema Musculoskeletal: Extremities: extremities normal to inspection and + muscle at rophy Skin: no rashes, warm and dry Neurologic: no focal motor deficits Psychiatric: Orientation: alert and oriented x 3 Affect: euthymic affect Results & Data Vital Signs (Past 12 Hours) Vital Signs Temp Pulse Pulse Resp BP Pulse Ox O2 Del Method 09/10/23 15:28 36.9 C 93 H 17 135/79 96 Room Air 09/10/23 06:55 36.4 C L 83 18 151/81 H 96 Room Air PG Care Time/CCT Total # of Minutes Spent Total Time Spent with Patient: Total time spent is greater than 50% in coordination of care (as documented) at patient's floor/unit and/or counseling patient: Coding Level of Care Code 13247 SUB INP/OBS CARE 2/35MIN Diagnoses Acute kidney injury N17.9 Acute hypoxic respiratory failure J96.01 Intra-abdominal abscess K65.1 Acute blood loss anemia D62 Megacolon, toxic K59.[address] Z93.2 Ulcerative pancolitis with abscess K51.014 Ulcerative colitis location: ulcerative pancolitis Digestive disease complication type: with abscess (7) Ulcerative colitis Ulcerative colitis location: ulcerative pancolitis Digestive disease com plication type: with abscess Qualified Code(s): K51.014 - Ulcerative (chronic) pancolitis with abscess
[2023-09-10] MEDS ORDERED: CLINOLIPID 20% IV FAT EMULSION 250 ML IV SCH (16:00)
[2023-09-10] MEDS ORDERED: PERIPHERAL TPN IV SCH (16:00)
[2023-09-10] MEDS ORDERED: [UNRECOGNIZED DRUG - OTHER] IV SCH (16:00)
--- NOTE | 2023-09-10 19:12 | Hospitalist Progress Note ---
Date of Service September 10, 2023 Assessment & Plan (1) Perforated abdominal viscus: Plan: Recent diagnosis of Ulcerative pancolitis, and had sessile polyp biopsied along with other biopsies on a colonoscopy during previous admission. Presented with free air, to OR 06/28/23 with subtotal colon resection with rectal stump remaining, ileostomy. Three areas of perforation were identified, abscess and feculent material seen. Pseudomonas, Staphylococcus aureus, and Enterococcus faecium as well as Mariely albicans isolated. Most recent CT scan abdomen pelvis 09/03/2023 shows slight improvement of fluid collections and pleural effusions. Previous identified abnormality in wall of the stomach was not seen on the scan. Other fluid collections remained stable or slightly improved In [place] and tertiary [facility] surgery over at [facility], reports they will not operate on patient as patient is clinically stable. Previously discussed with IR at [place] and [facility] finding of LUQ fluid collection - no evidence of adequate window to drain fluid collection Appreciate infectious disease recommendations -continue daptomycin, Zosyn, and renally adjusted fluconazole and is on treatment with current antibiotics antifungals through September 19, 2023 Switched cefepime to IV Zosyn 08/10 due to concern for cefepime induced neurotoxicity. -Discontinued metronidazole after completing course on 08/10 -c/o increased abdominal pain and nausea starting 09/02. CT 09/03 unrevealing. dronabinol and mirtazapine added for poor appetite, now taking these possibly with some improvement -continue IV PPI bid and trial of IV metoclopramide in case this is motility related, added Carafate -Consider upper GI series/small bowel follow-through - discussed with him today and refused because he finds the oral contrast difficult -consider repeat CT at earlier interval, due first week of September to follow-up infection, need to reengage ID at that time -continue PPN - has been on this 1 week, max 14 days if not eating by next week will need alternate solutions such as new central line for TPN or feeding tube -weekly monitoring labs CBC CMP CK while on daptomycin. CK was 12. Others ok within the week -Ordered CK check next a.m. (2) Acute kidney injury: Plan: First noted 07/25-maybe ATN due to poor po intake and previous sepsis, could be OSWALDO from CT scans patient got volume overloaded with minimal response to several doses of IV diuretics Femoral vein temporary dialysis catheter placed and started on dialysis on 08/12 continues on HD [employer], discussed with Dr. Perdomo she does not think he will be able to stop HD soon Tunneled HD line placed 09/01/2023 (3) Severe protein-calorie malnutrition: Plan: Complains of upper abdominal pain with intake of food and liquids, food tasting poorly, however appetite has improved on PPN as cannot replace picc to continue tpn, eating small amounts po until last week See discussion above GI reports no need for peg tube as patient's lack of intake is more behavior. This will need to be revisited pending repeat CT (4) Encephalopathy: Plan: Resolved Acute encephalopathy, probably metabolic from hospital delirium, insomnia, thiamine deficiency/Wernicke's encephalopathy, renal failure, and possibly medication/antibiotic induced. Head CT scan negative and repeated on 08/20-again neg for acute Received thiamine 500 Mg IV every 8 x 6 doses and converted to 200 mg daily stopped quetiapine/olanzapine 09/07 - had been refusing oral doses and not getting as needed olanzapine in quite a while (5) Acute hypoxic respiratory failure: Plan: resolved, was 2/2 volume overload from pleural effusions from DERIK Recent echocardiogram on 06/21 showed normal EF TPN restarted on 08/24/1308/25/2023 due to 50 pound weight loss during the hospital stay. lost picc line and cannot secure another changed to ppn on 09/03 -still w/ pleural effusions (6) Acute blood loss anemia: Plan: Postoperatively from initial surgery, now anemia from renal failure, chronic disease as well, low but stable Then with active bleeding from TIJ site and hgb now down to 7.3, sinus tachycardia, worsening encephalopathy--> transfused 1 unit PRBCs with HD on 08/17 and now hgb up to 9.5 B12, folate, iron studies normal TSH mildly elevated and free T4 mildly low-follow Received 5 units of blood this admission, most recently 09/04/23, hemoglobin no obvious source of blood loss likely nutritional in origin, also phlebotomy (7) Hard of hearing: Plan: Supportive care, wears hearing device (8) Ulcerative colitis: Plan: Patient with ulcerative colitis diagnosed by colonoscopy in 06/2023 Now status post subtotal colectomy with only rectal stump remaining No treatment at this point but will need continued surveillance for colorectal CA of the rectal stump Will need follow-up with GI as an outpatient Plan Hypertensionhas been on metoprolol, changed to amlodipine in case the metoprolol is having a general depressant effect Patient with antibiotics to September 19, 2023 disposition likely will be after that Extensive discussion with the [facility] -dialysis needs to be arranged at [facility]--> [id number] discussion with physicians at [facility] system which is a more about retirement type convalescent facility than a robust medical facility, they are reluctant to take the patient in transfer. Admission and Anticipated Discharge Date Admission Date: June 28, 2023 Subjective continues to seem slightly better day over day, eating still causing epigastric pain and mainly subsisting on tiny snacks throughout the day stating "living on pretzels" he does seem to be drinking fluids without difficulty at this point however Physical Exam 2 Physical Exam: PHYSICAL EXAMINATION Last 24h vital signs reviewed, see documentation in flowsheet General: awake alert lying in bed HEENT: Normocephalic, atraumatic, pupils round and equal, sclerae anicteric, no conjunctival injection, moist mucus membranes Lungs: Normal respiratory effort CTA B Heart: regular no MRG Tunneled HD catheter R upper chest cdi Abdomen: scaphoid, nondistended, nontender to palpation, brown liquid stool in ostomy, stoma pink Extremities: sarcopenia present, warm well-perfused no edema Neuro: Alert and oriented x 4, face symmetric, moves 4 extremities well Psych: makes eye contact, offers more conversation, more normal affect and behavior Results & Data Results & Data Vital Signs (Past 12 Hours) Vital Signs Temp Pulse Resp BP Pulse Ox O2 Del Method 09/10/23 15:28 36.9 C 93 H 17 135/79 96 Room Air Laboratory Results 09/09/23 07:17 09/09/23 07:17 PG Care Time/CCT Total # of Minutes Spent Total Time Spent with Patient: Total time spent is greater than 50% in coordination of care (as documented) at patient's floor/unit and/or counseling patient: Coding Level of Care Code 86228 SUB INP/OBS CARE 2/35MIN Diagnoses Perforated abdominal viscus R19.8 Acute kidney injury N17.9 Severe protein-calorie malnutrition E43 Encephalopathy G93.40 Acute hypoxic respiratory failure J96.01 Acute blood loss anemia D62 Bilateral hearing loss, unspecified hearing loss type H91.93 Hearing loss type: unspecified Laterality: bilateral Ulcerative pancolitis with abscess K51.014 Ulcerative colitis location: ulcerative pancolitis Digestive disease complication type: with abscess (7) Hard of hearing Hearing loss type: unspecified Laterality: bilateral Qualified Code(s): H 91.93 - Unspecified hearing loss, bilateral (8) Ulcerative colitis Ulcerative colitis location: ulcerative pancolitis Digestive disease complication type: with abscess Qualified Code(s): K51.014 - Ulcerative (chronic) pancolitis with abscess
[2023-09-10] MEDS: MIRTAZAPINE TAB 15 MG TAB PO SCH (19:56)
[2023-09-10] MEDS: DAPTOmycin 600 MG in SYRINGE 0 ML IV SCH (19:56)
[2023-09-10] MEDS: FLUCONAZOLE 200 MG/100 ML BAG IV SCH (19:56)
[2023-09-10] MEDS: STOP CLINOLIPID SCH (22:00)
[2023-09-11] MEDS: PIPERACILLIN/TAZOBACTAM 4.5 GM in DEXTROSE 5% MINI-B 100 ML IV SCH ×2 (04:35→15:49)
[2023-09-11] MEDS: METOCLOPRAMIDE HCL INJ 5 MG/ML 2 ML VIAL IV SCH ×3 (08:01→17:48)
[2023-09-11 08:48] LABS: Hematocrit (blood only) 35.6 % (42.0-52.0); Hemoglobin 11.9 g/dl (14.0-18.0); Mean Corpuscular Hemoglobin 29.8 pg (25.0-34.0); Mean Corpuscular Hgb Conc 33.4 g/dL (32.0-36.0); Mean Platelet Volume 10.4 fL (9.4-12.4); Platelet Count 419 K/uL (130-400); White Blood Count 5.98 K/ul (4.8-10.8)
[2023-09-11 09:12] LABS: Albumin Level 2.9 gm/dl (3.4-5.0); Calcium 8.7 mg/dl (8.6-10.3); Creatinine Clr Calc Pharmacy 18.6 ml/min; Est GFR (African American) 26.1 ml/min; Est GFR (Non-African American) 22.5 ml/min; Phosphorus 3.8 mg/dl (2.5-4.9); Potassium 4.8 mmol/L (3.5-5.1)
[2023-09-11] MEDS: SUCRALFATE 1 GM/10 ML UDC PO SCH ×4 (10:10→20:54)
[2023-09-11] MEDS: MICONAZOLE NITRATE POWDER 85 GM EXT SCH ×2 (10:10→20:54)
--- NOTE | 2023-09-11 13:32 | Nephrology Progress Note ---
Date of Service September 11, 2023 Assessment & Plan (1) Acute kidney injury: Plan: Attributed to ATN. Dependent on HD. No signs of renal recovery. Orders for HD today entered into the EHR and reviewed with RN. Adama is tolerating dialysis well. He was seen and evaluated during treatment. TDC with good Qb. BP and volume status are acceptable. Started HD 08/12/23. TDC placed 08/16/[address] Kamara. Medications are appropriately dosed for kidney function. (2) Intra-abdominal abscess: Plan: Remains on daptomycin, Zosyn, and fluconazole. Medications appropriate for kidney function. CK weekly on dapto. TPN continues. Orders reviewed with pharmacy. (3) Hypertension: Plan: BP controlled with metoprolol. Admission and Anticipated Discharge Date Admission Date: June 28, 2023 Subjective No acute events overnight. Adama was seen and examined today during hemodialysis. He is tolerating treatment well. No complaints. Review of Systems Review of Systems: All systems reviewed & are unremarkable except as noted in HPI & below Physical Exam Constitutional: well developed, + cachectic and + frail appearing; no acute distress Eyes: + anicteric sclerae; no corneal abnormal ity ENMT: Mouth: no oral mucosal abnormality and oral mucous membranes not dry Neck: normal visual inspection and trachea midline Respiratory: normal respiratory effort Auscultation: lungs clear to auscultation bilaterally Cardiovascular: Rate/Rhythm: regular rate Heart Sounds: normal S1 and normal S2 Extremities: no edema Musculoskeletal: Extremities: no cyanosis and no clubbing Skin: normal turgor; no jaundice Neurologic: Motor/Sensory: no tremor and no asterixis Psychiatric: Orientation: alert, oriented to person, oriented to place and cooperative Results & Data Vital Signs (Past 12 Hours) Vital Signs Temp Pulse Pulse Pulse Resp BP BP 09/11/23 13:00 80 154/101 H 09/11/23 12:30 85 140/99 09/11/23 12:00 75 149/99 H 09/11/23 11:30 90 150/82 H 09/11/23 11:00 76 150/100 H 09/11/23 10:30 84 157/99 H 09/11/23 10:00 75 151/97 H 09/11/23 09:30 78 152/99 H 09/11/23 09:14 36.6 C 95 H 09/11/23 06:36 36.6 C 89 18 170/84 H Pulse Ox O2 Del Method 09/11/23 13:00 09/11/23 12:30 09/11/23 12:00 09/11/23 11:30 09/11/23 11:00 09/11/23 10:30 09/11/23 10:00 09/11/23 09:30 09/11/23 09:14 09/11/23 06:36 97 Room Air Laboratory Results Laboratory Results - last 24 hr 09/10/23 09/10/23 09/11/23 16:39 20:13 07:46 WBC RBC Hgb Hct MCV MCH MCHC RDW Std Deviation RDW Coeff of Ashley Plt Count MPV Sodium Potassium Chloride Carbon Dioxide Anion Gap BUN Creatinine Est Cr Clr Drug Dosing Est GFR ( Amer) Est GFR (Non-Af Amer) BUN/Creatinine Ratio Glucose POC Glucose 92 112 H 106 H Calcium Phosphorus Magnesium Albumin 09/11/23 08:05 WBC 5.98 RBC 4.00 L Hgb 11.9 L Hct 35.6 L MCV 89.0 MCH 29.8 MCHC 33.4 RDW Std Deviation 52.0 H RDW Coeff of Ashley 16.0 H Plt Count 419 H MPV 10.4 Sodium 137 Potassium 4.8 Chloride 103 Carbon Dioxide 22 Anion Gap 12 H BUN 54 H Creatinine 3.00 H Est Cr Clr Drug Dosing 18.6 Est GFR ( Amer) 26.1 Est GFR (Non-Af Amer) 22.5 BUN/Creatinine Ratio 18.0 Glucose 108 H POC Glucose Calcium 8.7 Phosphorus 3.8 Magnesium 2.0 Albumin 2.9 L PG Care Time/CCT Total # of Minutes Spent Total Time Spent with Patient: Total time spent is greater than 50% in coordination of care (as documented) at patient's floor/unit and/or counseling patient: Coding Level of Care Code 71250 SUB INP/OBS CARE 3/50MIN Diagnoses Acute kidney injury N17.9 Intra-abdominal abscess K65.1 Hypertension I10
[2023-09-11] MEDS: PANTOprazole 40 MG in SYRINGE 0 ML IV SCH ×2 (13:35→20:54)
[2023-09-11] MEDS: amLODIPine BESYLATE 5 MG TAB PO SCH (13:36)
[2023-09-11] MEDS: THIAMINE HCL 100 MG TAB PO SCH (13:37)
[2023-09-11] MEDS: droNABinol 2.5 MG CAP PO SCH ×2 (13:45→15:46)
[2023-09-11] MEDS ORDERED: [UNRECOGNIZED DRUG - OTHER] IV SCH (16:00)
[2023-09-11] MEDS ORDERED: CLINOLIPID 20% IV FAT EMULSION 250 ML IV SCH (16:00)
[2023-09-11] MEDS ORDERED: PERIPHERAL TPN IV SCH (16:00)
--- NOTE | 2023-09-11 19:00 | Hospitalist Progress Note ---
Date of Service September 11, 2023 Assessment & Plan (1) Perforated abdominal viscus: Plan: Recent diagnosis of Ulcerative pancolitis, and had sessile polyp biopsied along with other biopsies on a colonoscopy during previous admission. Presented with free air, to OR 06/28/23 with subtotal colon resection with rectal stump remaining, ileostomy. Three areas of perforation were identified, abscess and feculent material seen. Pseudomonas, Staphylococcus aureus, and Enterococcus faecium as well as Mariely albicans isolated. Most recent CT scan abdomen pelvis 09/03/2023 shows slight improvement of fluid collections and pleural effusions. Previous identified abnormality in wall of the stomach was not seen on the scan. Other fluid collections remained stable or slightly improved In [place] and tertiary [facility] surgery over at [facility], reports they will not operate on patient as patient is clinically stable. Previously discussed with IR at [place] and [facility] finding of LUQ fluid collection - no evidence of adequate window to drain fluid collection Appreciate infectious disease recommendations -continue daptomycin, Zosyn, and renally adjusted fluconazole and is on treatment with current antibiotics antifungals through September 19, 2023 Switched cefepime to IV Zosyn 08/10 due to concern for cefepime induced neurotoxicity. -Discontinued metronidazole after completing course on 08/10 -c/o increased abdominal pain and nausea starting 09/02. CT 09/03 unrevealing. dronabinol and mirtazapine added for poor appetite, now taking these possibly with some improvement -continue IV PPI bid and trial of IV metoclopramide in case this is motility related - is improved -repeat TSH and AM cortisol were unremarkable -Consider upper GI series/small bowel follow-through - discussed with him 09/10 refused because he finds the oral contrast difficult -consider repeat CT at earlier interval, due first week of September to follow-up infection, need to reengage ID at that time -continue PPN - has been on this day. Replacement of PICC previously failed. Also he is dialysis dependent and PICCs will affect his future vascular access negatively. - today he actually ate pretty well, I encouraged his efforts. We had a pretty yaya discussion that he really needs to be eating well by middle of the week I set a goal of Wednesday or he will need to get a feeding tube. Prolonged intravenous nutrition is not indicated if he can be fed enterally and is comparatively hazardous. I think that his pain and nausea have improved with addition of metoclopramide, marinol and mirtazapine and he is getting over his fear of trying to eat. If this trial fails would advocate trial with nasal feeding tube, which I discussed with him, and reengage GI about PEG discussion if this is successful - Adama feels that the antibiotics are affecting his taste and appetite and this may be true, but he needs them right now. -weekly monitoring labs CBC CMP CK while on daptomycin. CK was 12. Others ok within the week -Ordered CK check next a.m. (2) Acute kidney injury: Plan: First noted 07/25-maybe ATN due to poor po intake and previous sepsis, could be OSWALDO from CT scans patient got volume overloaded with minimal response to several doses of IV diuretics Femoral vein temporary dialysis catheter placed and started on dialysis on 08/12 continues on HD [employer], no e/o renal recovery Tunneled HD line placed 09/01/2023 (3) Severe protein-calorie malnutrition: Plan: Complains of upper abdominal pain with intake of food and liquids, food tasting poorly, however appetite has improved on PPN as cannot replace picc to continue tpn, eating small amounts po until last week See discussion above GI reports no need for peg tube as patient's lack of intake is more behavior. This will need to be revisited pending repeat CT (4) Encephalopathy: Plan: Resolved Acute encephalopathy, probably metabolic from hospital delirium, insomnia, thiamine deficiency/Wernicke's encephalopathy, renal failure, and possibly medication/antibiotic induced. Head CT scan negative and repeated on 08/20-again neg for acute Received thiamine 500 Mg IV every 8 x 6 doses and converted to 200 mg daily stopped quetiapine/olanzapine 09/07 - had been refusing oral doses and not getting as needed olanzapine in quite a while -mentation improved this week. I think the mirtazapine is helping. Consider adding SSRI perhaps sertraline (5) Acute hypoxic respiratory failure: Plan: resolved, was 2/2 volume overload from pleural effusions from DERIK Recent echocardiogram on 06/21 showed normal EF TPN restarted on 08/24/1308/25/2023 due to 50 pound weight loss during the hospital stay. lost picc line and cannot secure another changed to ppn on 09/03 -still w/ pleural effusions (6) Acute blood loss anemia: Plan: Postoperatively from initial surgery, now anemia from renal failure, chronic disease as well, low but stable Then with active bleeding from TIJ site and hgb now down to 7.3, sinus tachycardia, worsening encephalopathy--> transfused 1 unit PRBCs with HD on 08/17 and now hgb up to 9.5 B12, folate, iron studies normal TSH mildly elevated and free T4 mildly low-follow -Hct improved on CBC 09/11 to 35 Received 5 units of blood this admission, most recently 09/04/23, hemoglobin no obvious source of blood loss likely nutritional in origin, also phlebotomy (7) Hard of hearing: Plan: Supportive care, wears hearing device (8) Ulcerative colitis: Plan: Patient with ulcerative colitis diagnosed by colonoscopy in 06/2023 Now status post subtotal colectomy with only rectal stump remaining No treatment at this point but will need continued surveillance for colorectal CA of the rectal stump Will need follow-up with GI as an outpatient Plan Hypertensionhas been on metoprolol, changed to amlodipine in case the metoprolol is having a general depressant effect Patient with antibiotics to September 19, 2023 disposition likely will be after that Extensive discussion with the [facility] system -dialysis needs to be arranged at alf system--> [id number] discussion with physicians at [facility] alf system which is a more about prison type convalescent facility than a robust medical facility, they are reluctant to take the patient in transfer. Admission and Anticipated Discharge Date Admission Date: June 28, 2023 Sean Galan is more interactive today and he actually ate half a dinner tray for lunch this was several significantly sized chicken strips and a half a plate of fries, this is the best he is eaten in a few weeks does not seem to have made his symptoms worse. No emesis. Physical Exam 2 Physical Exam: PHYSICAL EXAMINATION Last 24h vital signs reviewed, see documentation in flowsheet General: sitting up in bed HEENT: Normocephalic, atraumatic, pupils round and equal, sclerae anicteric, no conjunctival injection, moist mucus membranes Lungs: Normal respiratory effort CTA B anteriorly Heart: regular no MRG neck vv flat Tunneled HD catheter R upper chest cdi Abdomen: nondistended, nontender RLQ ostomy Extremities: sarcopenia present, warm well-perfused no edema Neuro: Alert and oriented x 4, face symmetric, moves 4 extremities well Psych: makes eye contact, offers more conversation the last few days, more normal affect and behavior Results & Data Results & Data Vital Signs (Past 12 Hours) Vital Signs Temp Pulse Pulse Pulse Resp BP BP 09/11/23 13:30 36.6 C 83 14 156/73 H 09/11/23 13:25 36.6 C 80 154/88 H 09/11/23 13:00 80 154/101 H 09/11/23 12:30 85 140/99 09/11/23 12:00 75 149/99 H 09/11/23 11:30 90 150/82 H 09/11/23 11:00 76 150/100 H 09/11/23 10:30 84 157/99 H 09/11/23 10:00 75 151/97 H 09/11/23 09:30 78 152/99 H 09/11/23 09:14 36.6 C 95 H Pulse Ox O2 Del Method 09/11/23 13:30 97 Room Air 09/11/23 13:25 09/11/23 13:00 09/11/23 12:30 09/11/23 12:00 09/11/23 11:30 09/11/23 11:00 09/11/23 10:30 09/11/23 10:00 09/11/23 09:30 09/11/23 09:14 Laboratory Results 09/11/23 08:05 09/11/23 08:05 PG Care Time/CCT Total # of Minutes Spent Total Time Spent with Patient: Total time spent is greater than 50% in coordination of care (as documented) at patient's floor/unit and/or counseling patient: Coding Level of Care Code 81224 SUB INP/OBS CARE 2/35MIN Diagnoses Perforated abdominal viscus R19.8 Acute kidney injury N17.9 Severe protein-calorie malnutrition E43 Encephalopathy G93.40 Acute hypoxic respiratory failure J96.01 Acute blood loss anemia D62 Bilateral hearing loss, unspecified hearing loss type H91.93 Hearing loss type: unspecified Laterality: bilateral Ulcerative pancolitis with abscess K51.014 Ulcerative colitis location: ulcerative pancolitis Digestive disease complication type: with abscess (7) Hard of hearing Hearing loss type: unspecified Laterality: bilateral Qualified Code(s): H 91.93 - Unspecified hearing loss, bilateral (8) Ulcerative colitis Ulcerative colitis location: ulcerative pancolitis Digestive disease complication type: with abscess Qualified Code(s): K51.014 - Ulcerative (chronic) pancolitis with abscess
[2023-09-11] MEDS: FLUCONAZOLE 200 MG/100 ML BAG IV SCH (20:53)
[2023-09-11] MEDS: MIRTAZAPINE TAB 15 MG TAB PO SCH (20:54)
[2023-09-11] MEDS: STOP CLINOLIPID SCH (21:57)
[2023-09-12] MEDS: PIPERACILLIN/TAZOBACTAM 4.5 GM in DEXTROSE 5% MINI-B 100 ML IV SCH ×2 (03:55→15:50)
[2023-09-12 08:14] LABS: BUN Creatinine Ratio 15.9 (10-20); Calcium 8.3 mg/dl (8.6-10.3); Est GFR (African American) 39.2 ml/min; Est GFR (Non-African American) 33.9 ml/min; Magnesium 1.9 mg/dl (1.7-2.4); Phosphorus 2.9 mg/dl (2.5-4.9)
[2023-09-12] MEDS: PANTOprazole 40 MG in SYRINGE 0 ML IV SCH ×2 (09:26→20:18)
[2023-09-12] MEDS: SUCRALFATE 1 GM/10 ML UDC PO SCH ×4 (09:26→20:19)
[2023-09-12] MEDS: amLODIPine BESYLATE 5 MG TAB PO SCH (09:26)
[2023-09-12] MEDS: THIAMINE HCL 100 MG TAB PO SCH (09:26)
[2023-09-12] MEDS: METOCLOPRAMIDE HCL INJ 5 MG/ML 2 ML VIAL IV SCH ×3 (09:26→17:02)
[2023-09-12] MEDS: MICONAZOLE NITRATE POWDER 85 GM EXT SCH ×2 (09:27→20:18)
--- NOTE | 2023-09-12 12:09 | Nephrology Progress Note ---
Date of Service September 12, 2023 Assessment & Plan (1) Acute kidney injury: Plan: Attributed to ATN. Dependent on HD. No signs of renal recovery. Completed HD yesterday with adequate UF and clearance. Next HD likely Wednesday. TDC has been functioning well. BP and volume status are acceptable. Started HD 08/12/23. TDC placed 08/16/[address] Kamara. Medications are appropriately dosed for kidney function. (2) Intra-abdominal abscess: Plan: Remains on daptomycin, Zosyn, and fluconazole. Medications appropriate for kidney function. CK weekly on dapto. TPN continues. Orders reviewed with pharmacy. (3) Hypertension: Plan: BP controlled with metoprolol. Admission and Anticipated Discharge Date Admission Date: June 28, 2023 Subjective No acute events overnight. Tolerated HD reasonably well yesterday. No acute complaints this AM. Afebrile. Review of Systems Review of Systems: All systems reviewed & are unremarkable except as noted in HPI & below Physical Exam Constitutional: well developed, + thin, + cachectic and + frail appearing; no acute distress Eyes: + anicteric sclerae; no corneal abnormal ity ENMT: Mouth: no oral mucosal abnormality and oral mucous membranes not dry Neck: normal visual inspection and trachea midline Respiratory: normal respiratory effort Auscultation: lungs clear to auscultation bilaterally Cardiovascular: Rate/Rhythm: regular rate Heart Sounds: normal S1 and normal S2 Extremities: no edema Musculoskeletal: Extremities: no cyanosis and no clubbing Skin: normal turgor and + turgor decreased; no jaundice Neurologic: Motor/Sensory: no tremor and no asterixis Psychiatric: Orientation: alert, oriented to person, oriented to place and cooperative; + not oriented x 3 Results & Data Vital Signs (Past 12 Hours) Vital Signs Temp Pulse Resp BP Pulse Ox O2 Del Method 09/12/23 08:30 36.9 C 83 16 162/91 H 97 Room Air 09/12/23 07:33 Room Air Laboratory Results Laboratory Results - last 24 hr 09/12/23 07:25 Sodium 136 Potassium 5.0 Chloride 102 Carbon Dioxide 27 Anion Gap 7 BUN 34 H D Creatinine 2.14 H D Est Cr Clr Drug Dosing 26.0 Est GFR ( Amer) 39.2 Est GFR (Non-Af Amer) 33.9 BUN/Creatinine Ratio 15.9 Glucose 116 H Calcium 8.3 L Phosphorus 2.9 Magnesium 1.9 PG Care Time/CCT Total # of Minutes Spent Total Time Spent with Patient: Total time spent is greater than 50% in coordination of care (as documented) at patient's floor/unit and/or counseling patient: Coding Level of Care Code 97151 SUB INP/OBS CARE 3/50MIN Diagnoses Acute kidney injury N17.9 Intra-abdominal abscess K65.1 Hypertension I10
[2023-09-12] MEDS: droNABinol 2.5 MG CAP PO SCH ×2 (12:14→17:01)
--- NOTE | 2023-09-12 15:53 | Hospitalist Progress Note ---
Date of Service September 12, 2023 Assessment & Plan (1) Perforated abdominal viscus: Plan: Recent diagnosis of Ulcerative pancolitis, and had sessile polyp biopsied along with other biopsies on a colonoscopy during previous admission. Presented with free air, to OR 06/28/23 with subtotal colon resection with rectal stump remaining, ileostomy. Three areas of perforation were identified, abscess and feculent material seen. Pseudomonas, Staphylococcus aureus, and Enterococcus faecium as well as Mariely albicans isolated. Most recent CT scan abdomen pelvis 09/03/2023 shows slight improvement of fluid collections and pleural effusions. Previous identified abnormality in wall of the stomach was not seen on the scan. Other fluid collections remained stable or slightly improved In [place] and tertiary [facility] surgery over at [facility], reports they will not operate on patient as patient is clinically stable. Previously discussed with IR at [place] and [facility] finding of LUQ fluid collection - no evidence of adequate window to drain fluid collection Appreciate infectious disease recommendations -continue daptomycin, Zosyn, and renally adjusted fluconazole and is on treatment with current antibiotics antifungals through September 19, 2023 Switched cefepime to IV Zosyn 08/10 due to concern for cefepime induced neurotoxicity. -Discontinued metronidazole after completing course on 08/10 -due for repeat CT abdomen first week of September and re-engage once CT obtained, per their last note -c/o increased abdominal pain and nausea starting 09/02 and stopped eating until 09/10. CT 09/03 unrevealing. repeat TSH and AM cortisol were unremarkable dronabinol and mirtazapine added for poor appetite, IV reglan and IV PPI - now taking these and significant improvement in oral intake last 48h (see above) -continue PPN for now - has been on this d05/27 day. Replacement of PICC previously failed. Also he is dialysis dependent and PICCs will affect his future vascular access negatively. We have had a yaya discussion 09/10- that he really needs to be eating well by middle of the week (I set him a goal of Wednesday) or he will need to get a feeding tube. Prolonged intravenous nutrition is not indicated if he can be fed enterally and is comparatively hazardous. Has been eating as well as he ever has last 48h with above measures. If this trial fails would advocate trial with nasal feeding tube, which I discussed with him, and reengage GI about PEG discussion if this is successful - Adama feels that the antibiotics are affecting his taste and appetite and this may be true, but he needs them right now. -weekly monitoring labs CBC CMP CK while on daptomycin. CK was 12. Others ok within the week -Ordered CK check next a.m. (2) Acute kidney injury: Plan: First noted 07/25-maybe ATN due to poor po intake and previous sepsis, could be OSWALDO from CT scans patient got volume overloaded with minimal response to several doses of IV diuretics Femoral vein temporary dialysis catheter placed and started on dialysis on 08/12 continues on HD [facility] [employer] consulting, no e/o renal recovery Tunneled HD line placed 09/01/2023 (3) Severe protein-calorie malnutrition: Plan: Complains of nausea, upper abdominal pain with intake of food and liquids, food tasting poorly, however appetite has improved on PPN as cannot replace picc to continue tpn, eating small amounts po until 09/02, significantly improved 09/11- See discussion above GI reports no need for peg tube as patient's lack of intake is more behavior. This is not an adequate explanation in my opinion. May need to be revisited as discussed above. (4) Encephalopathy: Plan: Resolved Acute encephalopathy, probably metabolic from hospital delirium, insomnia, thiamine deficiency/Wernicke's encephalopathy, renal failure, and possibly medication/antibiotic induced. Head CT scan negative and repeated on 08/20-again neg for acute Received thiamine 500 Mg IV every 8 x 6 doses and converted to 200 mg daily stopped quetiapine/olanzapine 09/07 - had been refusing oral doses and not getting as needed olanzapine in quite a while -mentation improved this week. I think the mirtazapine is helping. May have depression. Consider adding SSRI perhaps sertraline (5) Acute hypoxic respiratory failure: Plan: resolved, was 2/2 volume overload from pleural effusions from DERIK Recent echocardiogram on 06/21 showed normal EF - has pleural effusions (6) Acute blood loss anemia: Plan: Postoperatively from initial surgery, now anemia from renal failure, chronic disease as well, low but stable Then with active bleeding from TIJ site and hgb now down to 7.3, sinus tachycardia, worsening encephalopathy--> transfused 1 unit PRBCs with HD on 08/17 and now hgb up to 9.5 B12, folate, iron studies normal TSH mildly elevated and free T4 mildly low-follow Received 5 units of blood this admission, most recently 09/04/23, hemoglobin no obvious source of blood loss likely nutritional in origin, also phlebotomy -Hct improved on CBC 09/11 to 35 (7) Hard of hearing: Plan: Supportive care, wears hearing device (8) Ulcerative colitis: Plan: Patient with ulcerative colitis diagnosed by colonoscopy in 06/2023 Now status post subtotal colectomy with only rectal stump remaining No treatment at this point but will need continued surveillance for colorectal CA of the rectal stump Will need follow-up with GI as an outpatient Plan Hypertension was on metoprolol, changed to amlodipine in case the metoprolol is having a general depressant effect - increase dose 09/12 Patient with antibiotics to September 19, 2023 disposition likely will be after that Extensive discussion with the long term system -dialysis needs to be arranged at long term system--> [id number] discussion with physicians at [facility] system which is a more about shelter type convalescent facility than a robust medical facility, they are reluctant to take the patient in transfer. Admission and Anticipated Discharge Date Admission Date: June 28, 2023 Subjective He ate large plate of chicken strips and fries divided into two sessions and half a hot dog last night, seen 9AM hungry and does want breakfast. Has had no emesis and has not c/o abdominal pain. Physical Exam 2 Physical Exam: PHYSICAL EXAMINATION Last 24h vital signs reviewed, see documentation in flowsheet General: woke from sleeping HEENT: Normocephalic, atraumatic, pupils round and equal, sclerae anicteric, no conjunctival injection, moist mucus membranes Lungs: Normal respiratory effort CTA B anteriorly Heart: regular no MRG neck vv flat Tunneled HD catheter R upper chest cdi Abdomen: s/nt/nd, +BT, RLQ stoma pink, brown liquid stool Extremities: sarcopenia present, warm well-perfused no edema Neuro: Alert and oriented x 4, face symmetric, moves 4 extremities well Psych: makes eye contact, offers more conversation the last few days, more normal affect and behavior Results & Data Results & Data Vital Signs (Past 12 Hours) Vital Signs Temp Pulse Resp BP Pulse Ox O2 Del Method 09/12/23 13:48 36.8 C 97 H 15 172/92 H 97 Room Air 09/12/23 08:30 36.9 C 83 16 162/91 H 97 Room Air 09/12/23 07:33 Room Air Laboratory Results 09/11/23 08:05 09/12/23 07:25 PG Care Time/CCT Total # of Minutes Spent Total Time Spent with Patient: Total time spent is greater than 50% in coordination of care (as documented) at patient's floor/unit and/or counseling patient: Coding Level of Care Code 30674 SUB INP/OBS CARE 2/35MIN Diagnoses Perforated abdominal viscus R19.8 Acute kidney injury N17.9 Severe protein-calorie malnutrition E43 Encephalopathy G93.40 Acute hypoxic respiratory failure J96.01 Acute blood loss anemia D62 Bilateral hearing loss, unspecified hearing loss type H91.93 Hearing loss type: unspecified Laterality: bilateral Ulcerative pancolitis with abscess K51.014 Ulcerative colitis location: ulcerative pancolitis Digestive disease complication type: with abscess (7) Hard of hearing Hearing loss type: unspecified Laterality: bilateral Qualified Code(s): H 91.93 - Unspecified hearing loss, bilateral (8) Ulcerative colitis Ulcerative colitis location: ulcerative pancolitis Digestive disease complication type: with abscess Qualified Code(s): K51.014 - Ulcerative (chronic) pancolitis with abscess
[2023-09-12] MEDS ORDERED: PERIPHERAL TPN IV SCH (16:00)
[2023-09-12] MEDS ORDERED: CLINOLIPID 20% IV FAT EMULSION 250 ML IV SCH (16:00)
[2023-09-12] MEDS ORDERED: [UNRECOGNIZED DRUG - OTHER] IV SCH (16:00)
[2023-09-12] MEDS: DAPTOmycin 600 MG in SYRINGE 0 ML IV SCH (20:18)
[2023-09-12] MEDS: MIRTAZAPINE TAB 15 MG TAB PO SCH (20:18)
[2023-09-12] MEDS: FLUCONAZOLE 200 MG/100 ML BAG IV SCH (20:32)
[2023-09-12] MEDS: STOP CLINOLIPID SCH (21:37)
[2023-09-13] MEDS: PIPERACILLIN/TAZOBACTAM 4.5 GM in DEXTROSE 5% MINI-B 100 ML IV SCH ×2 (04:35→15:35)
[2023-09-13] MEDS: THIAMINE HCL 100 MG TAB PO SCH (07:34)
[2023-09-13] MEDS: PANTOprazole 40 MG in SYRINGE 0 ML IV SCH ×2 (07:34→20:15)
[2023-09-13] MEDS: amLODIPine BESYLATE 5 MG TAB PO SCH (07:34)
[2023-09-13] MEDS: METOCLOPRAMIDE HCL INJ 5 MG/ML 2 ML VIAL IV SCH ×3 (07:35→17:36)
[2023-09-13] MEDS: SUCRALFATE 1 GM/10 ML UDC PO SCH ×4 (07:35→20:14)
[2023-09-13] MEDS: MICONAZOLE NITRATE POWDER 85 GM EXT SCH ×2 (07:35→20:15)
[2023-09-13 08:57] LABS: BUN Creatinine Ratio 18.6 (10-20); Calcium 8.5 mg/dl (8.6-10.3); Creatinine Clr Calc Pharmacy 20.3 ml/min; Est GFR (African American) 29.1 ml/min; Est GFR (Non-African American) 25.1 ml/min; Potassium 5.5 mmol/L (3.5-5.1)
[2023-09-13] MEDS: droNABinol 2.5 MG CAP PO SCH ×2 (10:52→15:38)
--- NOTE | 2023-09-13 11:58 | Nephrology Progress Note ---
Date of Service September 13, 2023 Assessment & Plan (1) Acute kidney injury: Plan: Attributed to ATN. Dependent on HD. No signs of renal recovery. Orders for HD today entered into the EHR and reviewed with mechanical drafter. Tolerating treatment well. Adama was seen and evaluated during hemodialysis. Potassium slightly high this AM. Appetite improving. Low potassium diet ordered pending adjustment of PPN. Next HD likely Wednesday. TDC has been functioning well. BP and volume status are acceptable. Started HD 08/12/23. TDC placed 08/16/[address] Kamara. Medications are appropriately dosed for kidney function. (2) Intra-abdominal abscess: Plan: Remains on daptomycin, Zosyn, and fluconazole. Medications appropriate for kidney function. CK weekly on dapto. PPN continues. Potassium to be limited due to hyperkalemia. (3) Hypertension: Plan: BP controlled with metoprolol. Admission and Anticipated Discharge Date Admission Date: June 28, 2023 Subjective No acute events overnight. Adama was seen and evaluated during hemodialysis this morning. He is tolerating treatment well. No complications with treatment. Appetite has improved. Diet yesterday consisting of Gabonese fries, ketchup, and pizza. Review of Systems Review of Systems: All systems reviewed & are unremarkable except as noted in HPI & below Physical Exam Constitutional: well developed, + thin and + frail appearing; no acute distress Eyes: + anicteric sclerae; no corneal abnormal ity ENMT: Mouth: no oral mucosal abnormality and oral mucous membranes not dry Neck: normal visual inspection and trachea midline Respiratory: normal respiratory effort Auscultation: lungs clear to auscul tation bilaterally Cardiovascular: Rate/Rhythm: regular rate Heart Sounds: normal S1 and normal S2 Extremities: no edema Musculoskeletal: Extremities: no cyanosis and no clubbing Skin: normal turgor and + turgor decreased; no jaundice Neurologic: Motor/Sensory: no tremor and no asterixis Psychiatric: Orientation: alert and oriented x 3 Results & Data Vital Signs (Past 12 Hours) Vital Signs Temp Pulse Resp BP Pulse Ox O2 Del Method 09/13/23 09:58 Room Air 09/13/23 08:56 36.5 C 83 18 150/85 H 98 Room Air Laboratory Results Laboratory Results - last 24 hr 09/13/23 08:18 Sodium 136 Potassium 5.5 H Chloride 105 Carbon Dioxide 22 Anion Gap 9 BUN 51 H Creatinine 2.74 H D Est Cr Clr Drug Dosing 20.3 Est GFR ( Amer) 29.1 Est GFR (Non-Af Amer) 25.1 BUN/Creatinine Ratio 18.6 Glucose 124 H Calcium 8.5 L Phosphorus 3.0 Magnesium 2.0 PG Care Time/CCT Total # of Minutes Spent Total Time Spent with Patient: Total time spent is greater than 50% in coordination of care (as documented) at patient's floor/unit and/or counseling patient: Coding Level of Care Code 04621 SUB INP/OBS CARE 3/50MIN Diagnoses Acute kidney injury N17.9 Intra-abdominal abscess K65.1 Hypertension I10
[2023-09-13] MEDS ORDERED: [UNRECOGNIZED DRUG - OTHER] IV SCH (16:00)
[2023-09-13] MEDS ORDERED: PERIPHERAL TPN IV SCH (16:00)
[2023-09-13] MEDS ORDERED: CLINOLIPID 20% IV FAT EMULSION 250 ML IV SCH (16:00)
[2023-09-13] MEDS: MIRTAZAPINE TAB 15 MG TAB PO SCH (20:14)
[2023-09-13] MEDS: FLUCONAZOLE 200 MG/100 ML BAG IV SCH (20:18)
[2023-09-13] MEDS: STOP CLINOLIPID SCH (21:18)
[2023-09-14] MEDS: PIPERACILLIN/TAZOBACTAM 4.5 GM in DEXTROSE 5% MINI-B 100 ML IV SCH ×2 (04:26→17:09)
[2023-09-14] MEDS: amLODIPine BESYLATE 5 MG TAB PO SCH (09:24)
[2023-09-14] MEDS: THIAMINE HCL 100 MG TAB PO SCH (09:24)
[2023-09-14] MEDS: PANTOprazole 40 MG in SYRINGE 0 ML IV SCH ×2 (09:25→19:46)
[2023-09-14] MEDS: SUCRALFATE 1 GM/10 ML UDC PO SCH ×4 (09:25→19:46)
[2023-09-14] MEDS: METOCLOPRAMIDE HCL INJ 5 MG/ML 2 ML VIAL IV SCH ×3 (09:25→16:59)
--- NOTE | 2023-09-14 10:25 | Nephrology Progress Note ---
Date of Service September 14, 2023 Assessment & Plan (1) Acute kidney injury: Plan: Attributed to ATN. Dependent on HD. No signs of renal recovery. BP and volume status acceptable. HD completed yesterday with adequate clearance. Follow up labs pending this AM. Next HD anticipated for tomorrow. Low potassium diet ordered pending labs. PPN adjusted accordingly. TDC has been functioning well. Started HD 08/12/23. TDC placed 08/16/[address] Kamara. Medications are appropriately dosed for kidney function. (2) Intra-abdominal abscess: Plan: Remains on daptomycin, Zosyn, and fluconazole. Medications appropriate for kidney function. CK weekly on dapto. PPN continues. Potassium to be limited due to hyperkalemia. (3) Hypertension: Plan: BP controlled with metoprolol. Admission and Anticipated Discharge Date Admission Date: June 28, 2023 Subjective No acute events overnight. No complaints this AM. No fevers or chills. Tolerated HD well yesterday. Adequate clearance and UF. Review of Systems Review of Systems: All systems reviewed & are unremarkable except as noted in HPI & below Physical Exam Constitutional: well developed, + thin, + cachectic and + frail appearing; no acute distress Eyes: + anicteric sclerae; no corneal abnormal ity ENMT: Mouth: no oral mucosal abnormality and oral mucous membranes not dry Neck: normal visual inspection and trachea midline Respiratory: normal respiratory effort Auscultation: lungs clear to auscultation bilaterally Cardiovascular: Rate/Rhythm: regular rate Heart Sounds: normal S1 and normal S2 Extremities: no edema Musculoskeletal: Extremities: no cyanosis and no clubbing Skin: normal turgor and + turgor decreased; no jaundice Neurologic: Motor/Sensory: no tremor and no asterixis Psychiatric: Orientation: alert, oriented x 3, oriented to person, oriented to place and cooperative Results & Data Vital Signs (Past 12 Hours) Vital Signs Temp Pulse Resp BP Pulse Ox O2 Del Method 09/14/23 07:08 36.5 C 69 16 154/84 H 98 Room Air Laboratory Results Laboratory Results - last 24 hr 09/14/23 09:12 Sodium Pending Potassium Pending Chloride Pending Carbon Dioxide Pending Anion Gap Pending BUN Pending Creatinine Pending Est Cr Clr Drug Dosing Pending Est GFR ( Amer) Pending Est GFR (Non-Af Amer) Pending BUN/Creatinine Ratio Pending Glucose Pending Calcium Pending Phosphorus Pending Magnesium Pending PG Care Time/CCT Total # of Minutes Spent Total Time Spent with Patient: Total time spent is greater than 50% in coordination of care (as documented) at patient's floor/unit and/or counseling patient: Coding Level of Care Code 82215 SUB INP/OBS CARE 3/50MIN Diagnoses Acute kidney injury N17.9 Intra-abdominal abscess K65.1 Hypertension I10
[2023-09-14 10:42] LABS: BUN Creatinine Ratio 18.3 (10-20); Calcium 8.6 mg/dl (8.6-10.3); Creatinine Clr Calc Pharmacy 26.1 ml/min; Est GFR (African American) 39.5 ml/min; Est GFR (Non-African American) 34.1 ml/min; Phosphorus 3.8 mg/dl (2.5-4.9); Potassium 4.7 mmol/L (3.5-5.1)
--- NOTE | 2023-09-14 12:28 | Hospitalist Progress Note ---
Date of Service September 14, 2023 Assessment & Plan (1) Abdominal pain: Plan: etiology uncertain. He is nearly 3 months post-op from his extensive exploratory laparotomy surgery performed on 06/28/23. He should not have pain from his original surgery at this point. Pain could be gastric in etiology given the ongoing gastric wall thickening seen on CT. Could be from #2. Could be infectious. Could be other pathology. Will d/w [facility] - consider EGD given the abnormalities seen on CT of the stomach. Trial of creon w/ meals given #2. Of note - the ongoing pain coupled with anorexia has led to ongoing weight loss and failure to thrive. (2) Chronic pancreatitis: Plan: as seen on CT abd/pelvis start creon 2 capsules with meals (3) Abnormal CT scan, stomach: Plan: * perisplenic fluid collection continues to decrease in size * gastric wall continues to appear abnormal * pancreatic calcifications noted c/w chronic pancreatitis see discussion above (4) Perforated abdominal viscus: Plan: Presented with free air and signs of intra-abdominal abscess/fluid collection formation on 06/28/23. This was in the setting of recent colonoscopy on 06/15/23 which showed signs of severe, pancolitis. Biopsies were c/w Ulcerative colitis. Went to OR on 06/28/23 with subtotal colon resection with rectal stump remaining along with ileostomy formation. Three areas of perforation were identified, abscess and feculent material seen. Pseudomonas, MSSA, and Enterococcus faecium as well as Mariely albicans isolated from intra-op cultures. continue daptomycin, Zosyn, and renally adjusted fluconazole through September 19, 2023 as previously recommended by ID. of note - switched cefepime to IV Zosyn 08/10 due to concern for cefepime induced neurotoxicity. Discontinued metronidazole after completing course on 08/10 dronabinol and mirtazapine added for poor appetite IV reglan and IV PPI also added unfortunately appetite and overall intake remain poor he continues with abdominal pain remains on PPN patient feels that his lack of appetite stems from the antibiotics affecting his taste and appetite will discuss his case with GI (5) Ulcerative colitis: Plan: Patient with dailey ulcerative colitis diagnosed by colonoscopy 06/2023 Now status post subtotal colectomy with only rectal stump remaining and has ileostomy No treatment at this point but will need continued surveillance for colorectal CA of the rectal stump Will need follow-up with GI as an outpatient (6) Acute kidney injury: Plan: First noted 07/25/23 ATN suspected as cause of DERIK OSWALDO from CT scans also possible Ultimately developed volume overload in setting of his DERIK Never had renal recovery dialysis started on 08/12 continues on HD TThSat schedule Permcath/Tunneled HD line placed 09/01/2023 appreciate nephrology assistance (7) Severe protein-calorie malnutrition: Plan: appetite remains poor caloric intake is very poor 12kg weight loss since May remains cachectic remains on PPN for now will d/w GI the possibility of obtaining EGD? (8) Encephalopathy: Plan: acute encephalopathy - multifactorial - hospital delirium, insomnia, thiamine deficiency/Wernicke's encephalopathy, renal failure, and possibly medication/antibiotic induced. Head CT x 2 both negative s/p thigh-dose thiamine earlier in the stay; now on maintenance thiamine 200 mg daily now off of antipsychotics as the bulk of his confusion has resolved (9) Acute hypoxic respiratory failure: Plan: 2nd volume overload resolved (10) Acute blood loss anemia: Plan: transfused total 5 units PRBCs this admission B12, folate, iron studies normal TSH mildly elevated and free T4 mildly low - would repeat in a week or two most recent H/H stable (11) Hard of hearing: Plan: Supportive care, wears hearing device (12) Ileostomy in place: Plan: functioning well radiographically the ileostomy appears wnl he is having pure liquid stool from the ostomy -- check a c diff consider questran powder to help with bulking pancrease may help (see above) (13) Hypertension: Plan: remains on amlodipine 5mg daily (14) Abdominal fluid collection: Plan: Per the CT a/p today - "There is continued decreased size of the perisplenic fluid collection approximate 6.3 x 1.2 cm. This measured 8.3 x 2.4 cm on the August 2023 study." This is good news. The decrease in size portends resolution. Cont IV antibiotics & antifungals through 09/19 as previously advised by infectious diseases. will reach out to ID this week. Plan Previous attending physicians had extensive discussions with the half-way system - dialysis needs to be arranged at [facility]-way system. Discussion also held with physicians at [facility] system which is more of a fpc type convalescent facility. At this time they are reluctant to take the patient in transfer following his prolonged admission here. PT/OT both advising rehab post-d/c --> [facility] would be best given his medical complexity Admission and Anticipated Discharge Date Admission Date: June 28, 2023 Subjective patient resting in bed during the visits guards at bedside the guards state he took only a couple of bites of food at breakfast patient reports that even at the half-way he rarely eats breakfast typically here at [facility] he eats lunch, dinner, and has a snack later in the day however, at each meal, he doesn't take in much he reports ongoing lower abdominal pain nearly a few bites into eating he does have nausea at times he also has many times when he simply doesn't have an appetite ileostomy is producing liquid green-colored stool Review of Systems Review of Systems: gen - no fevers cv - no chest pain pulm - no dyspnea GI - see HPI - no dysuria Physical Exam Physical Exam: gen - cachectic, but NAD HENT - very hearing impaired; MMM; no thrush neck - no JVD heart - RRR, s1 s2 lungs - decreased BS b/l bases o/w CTA b/l abd - soft, NT, ND, no palpable masses, ileostomy in place R abdomen, stoma clean, green liquid stool present in the collection bag; midline lower abdominal wall scar ext - no edema, pulses 2+ b/l neuro - muscle wasting of all 4 limbs vascular - permcath present right upper chest clean Results & Data Results & Data Vital Signs (Past 12 Hours) Vital Signs Temp Pulse Resp BP Pulse Ox O2 Del Method 09/14/23 07:08 36.5 C 69 16 154/84 H 98 Room Air Laboratory Results Laboratory Results - last 24 hr 09/14/23 09/14/23 09:12 18:45 Sodium 136 Potassium 4.7 Chloride 103 Carbon Dioxide 24 Anion Gap 9 BUN 39 H Creatinine 2.13 H D Est Cr Clr Drug Dosing 26.1 Est GFR ( Amer) 39.5 Est GFR (Non-Af Amer) 34.1 BUN/Creatinine Ratio 18.3 Glucose 94 Calcium 8.6 Phosphorus 3.8 Magnesium 2.0 Stl C. diff Tox B Gene Negative Cdiff Gene Diagnostic Findings Abdomen/Pelvis CT 09/14/23 15:[address] WITHOUT CONTRAST CT DOSE: 348.27 mGy.cm HISTORY: Acute left upper quadrant abdominal pain h/o LUQ fluid collection, interval change TECHNIQUE: Multiaxial CT images of the abdomen and pelvis were performed without contrast. A dose lowering technique was utilized adhering to the principles of ALARA. COMPARISON STUDY: CT 09/03/2023 08/27/2023 FINDINGS: Decreased attenuation of the cardiac blood pool again noted suggestive of probable anemia. Trace right pleural effusion is decreased in size from prior. Moderate left pleural effusion is generally stable along with bibasilar left greater than right atelectasis. No free air. The unenhanced spleen, gallbladder, adrenal glands and liver appear unremarkable. Scattered punctate calcifications of the pancreas suggestive of chronic pancreatitis. There is continued decreased size of the perisplenic fluid collection approximate 6.3 x 1.2 cm. This measured 8.3 x 2.4 cm on the 08 27 2023 study. Nonspecific bilateral perinephric stranding. No hydronephrosis. Mildly distended urinary bladder. Mild prostatomegaly. Atherosclerosis of the aorta without aneurysm. There is no new lymphadenopathy identified. There is persistent gastric wall thickening which continues to improve from the prior study. No intramural fluid collections involving the stomach. Prior subtotal colectomy with right lower quadrant ileostomy. No bowel obstruction or bowel wall thickening. Mesenteric and generalized body wall edema. No acute fracture. IMPRESSION: 1. Persistent mesenteric and body wall edema with stable moderate left pleural effusion and decreased size of the now trace right pleural effusion. The previously described perisplenic fluid collection continues to decrease in size as above. 2. Subtotal colectomy with right lower quadrant ileostomy. 3. No bowel obstruction or bowel wall thickening. 4. Additional findings as above. ACT 112: Negative or not required by law. The above report was generated using voice recognition software. It may contain grammatical, syntax or spelling errors. Electronically signed by: Abdi Hirsch M.D. 09/14/2023 4:45 PM PG Care Time/CCT Total # of Minutes Spent Total Time Spent with Patient: Total time spent is greater than 50% in coordination of care (as documented) at patient's floor/unit and/or counseling patient: Coding Level of Care Code 40411 SUB INP/OBS CARE 3/50MIN Diagnoses Abdominal pain R10.9 Chronic pancreatitis K86.[address] scan, stomach R93.3 Perforated abdominal viscus R19.8 Ulcerative pancolitis with abscess K51.014 Digestive disease complication type: with abscess Ulcerative colitis location: ulcerative pancolitis Acute kidney injury N17.9 Severe protein-calorie malnutrition E43 Encephalopathy G93.40 Acute hypoxic respiratory failure J96.01 Acute blood loss anemia D62 Bilateral hearing loss, unspecified hearing loss type H91.93 Hearing loss type: unspecified Laterality: bilateral Ileostomy in place Z93.2 Hypertension I10 Abdominal fluid collection R18.8 (5) Ulcerative colitis Digestive disease complication type: with abscess Ulcerative colitis location: ulcerative pancolitis Qualified Code(s): K51.014 - Ulcerative (chronic) pancolitis with abscess (11) Hard of hearing Hearing loss type: unspecified Laterality: bilateral Qualified Code(s): H91.93 - Unspecified hearing loss, bilateral
[2023-09-14] MEDS: MICONAZOLE NITRATE POWDER 85 GM EXT SCH ×2 (12:40→19:46)
[2023-09-14] MEDS: droNABinol 2.5 MG CAP PO SCH ×2 (12:59→17:09)
--- NOTE | 2023-09-14 15:31 | Pharmacy Report ---
Pharmacy PN Follow-up Note - Date of Service September 14, 2023 - Subjective Patient is currently on day #[] of [PPN][TPN] for [Indication]. - Objective Height & Weight (Last Documented) Height 5 ft 9 in Weight 46.6 kg Diet Order(s) 09/01/23 Lunch Diet Intake & Ouput (24hrs) 09/13/23 09/14/23 09/15/23 06:59 06:59 06:59 Intake Total 2514.698 / 2514.698 2688.143 / 2688.143 100 / 100 Output Total 1850 / 1850 1401 / 1401 450 / 450 Balance 664.698 / 695.840 9011.143 / 1287.143 -350 / -350 Selected Laboratory Results 09/14/23 09:12 Sodium 136 Potassium 4.7 Chloride 103 Carbon Dioxide 24 Anion Gap 9 BUN 39 H Creatinine 2.13 H D Est GFR ( Amer) 39.5 Est GFR (Non-Af Amer) 34.1 BUN/Creatinine Ratio 18.3 Glucose 94 Calcium 8.6 Phosphorus 3.8 Magnesium 2.0 - Assessment & Plan Assessment: 09/14/23: * Patient continues to be on PPN. * Potassium was elevated. Removed all potassium from PPN bag yesterday. Also, he received hemodialysis yesterday. * Potassium level back to normal today. Continued with no potassium in PPN again today. * PPN macronutrients remain at goal and continued the same. * 09/08: * Patient remains on PPN, as PICC line was unable to be replaced * Electrolyte fluctuations over the weekend given prolonged period of time without HD * Last hemodialysis session yesterday 09/07/23 * Will increase electrolytes back to prior amounts today * Triglycerides remain marginally elevated at 209 mg/dL - will continue lipids for now to increase calories * 09/03: * PICC line not able to be salvaged by IV team, peripheral line placed. TPN placed on hold last night. D5NS+ 20K started by provider. * Provider requested initiation of PPN as there are currently no plans for central line placement * Appreciate recommendations per dietary. * Phosphate/calcium precipitate: Calcium removed from TPN today, corrected calcium based on albumin within goal range. * Hemodialysis today after abdominal CT * Triglycerides stable, continue with lipids. Next level ordered for 09/07 * 09/02: * Occluded PICC and HD lines noted 08/31. PICC was able to be successfully managed w cathflo, but dialysis cath was surgically changed yesterday. HD yesterday w next planned tomorrow. * Precipiate noted on 08/31 below the TPN filter - use caution with electrolytes in TPN, especially calcium and phos * Will target lower doses of potassium, phosphate, and magnesium in TPN due to HD patient * May adjust sodium from acetate to chloride tomorrow due to shortage * Triglycerides 253 yesterday, but still less than 400. Will re-order for tomorrow with hope to defer ongoing monitoring until after holiday weekend. * 08/30: * TPN was held yesterday for hypophosphatemia (1.5 mg/dL). Received 30 mmol of Sodium Phosphate yesterday and phosphorus is 4.0 mg/dL this AM. * Other electrolytes review; only noted mild hyperchloremia and low serum CO2 . Will limit chloride in TPN as much as possible. * Per Nephrology: "Remains dialysis dependent. Please minimize volume as best you can." Next HD session scheduled for 08/31/23. * Will check triglycerides again Wednesday (09/01/23); TG have been elevated, likely unnecessary to hold unless > 400 per ASPEN recs * Patient is currently at target macronutrients per Dietary recs. Plan: * For Day #20 of PN administration, the following will be ordered: * Macronutrients: * Amino Acids: 71 grams/day * Dextrose: 84 grams/day * Lipids: 50 grams/day * Micronutrients: * Sodium phosphate: ___ mMol/day * Sodium chloride: 100 mEq/day * Potassium acetate: ___ mEq/day * Sodium acetate: 20 mEq/day * Magnesium sulfate: 8.12 mEq/day * Multivitamins: 10 mL/day * Trace elements: 1 mL/day * Folic acid: 1 mg/day * Total volume of 1743.2 mL (1493 mL Clinimix + 250 mL Lipids) will be infused over 24 hours and will provide 1071 kcal/day * Labs will be ordered per PN protocol. * Pharmacy will follow and adjust PN orders on a daily basis. Thank you!
[2023-09-14] MEDS ORDERED: [UNRECOGNIZED DRUG - OTHER] IV SCH (16:00)
[2023-09-14] MEDS ORDERED: CLINOLIPID 20% IV FAT EMULSION 250 ML IV SCH (16:00)
[2023-09-14] MEDS ORDERED: PERIPHERAL TPN IV SCH (16:00)
--- NOTE | 2023-09-14 16:47 | CT Scan Report ---
ABDOMEN AND PELVIS CT WITHOUT CONTRAST CT DOSE: 348.27 mGy.cm HISTORY: Acute left upper quadrant abdominal pain h/o LUQ fluid collection, interval change TECHNIQUE: Multiaxial CT images of the abdomen and pelvis were performed without contrast. A dose lo wering technique was utilized adhering to the principles of ALARA. COMPARISON STUDY: CT 09/03/2023 08/27/2023 FINDINGS: Decreased attenuation of the cardiac blood pool again noted suggestive of probable anemia. Trace right pleural effusion is decreased in size from prior. Moderate left pleural effusion is gener ally stable along with bibasilar left greater than right atelectasis. No free air. The unenhanced spleen, gallbladder, adrenal glands and liver appear unremarkable. Scattered punctate calcifications of the pancreas suggestive of chronic pancreatitis. There is continued decreased size of the perisplenic fluid collection approximate 6.3 x 1.2 cm. This measured 8.3 x 2.4 cm on the 08 27 2023 study. Nonspecific bilateral perinephric stranding. No hydronephrosis. Mildly distended urinary bladder. Mil d prostatomegaly. Atherosclerosis of the aorta without aneurysm. There is no new lymphadenopathy iden tified. There is persistent gastric wall thickening which continues to improve from the prior study. No intramural fluid collections involving the stomach. Prior subtotal colectomy with right lower quad rant ileostomy. No bowel obstruction or bowel wall thickening. Mesenteric and generalized body wall e haroldo. No acute fracture. IMPRESSION: 1. Persistent mesenteric and body wall edema with stable moderate left pleural effusion and decreased size of the now trace right pleural effusion. The previously described perisplenic fluid collection continues to decrease in size as above. 2. Subtotal colectomy with right lower quadrant ileostomy. 3. No bowel obstruction or bowel wall thickening. 4. Additional findings as above. ACT 112: Negative or not required by law. The above report was generated using voice recognition software. It may contain grammatical, syntax o r spelling errors. Electronically signed by: Abdi Hirsch M.D. 09/14/2023 4:45 PM
[2023-09-14] MEDS: MIRTAZAPINE TAB 15 MG TAB PO SCH (19:46)
[2023-09-14] MEDS: FLUCONAZOLE 200 MG/100 ML BAG IV SCH (21:32)
[2023-09-14] MEDS: DAPTOmycin 600 MG in SYRINGE 0 ML IV SCH (21:34)
[2023-09-14] MEDS: STOP CLINOLIPID SCH (22:20)
[2023-09-15] MEDS: LORazepam 1 MG TAB PO PRN ×2 (01:35→14:29)
[2023-09-15] MEDS: PIPERACILLIN/TAZOBACTAM 4.5 GM in DEXTROSE 5% MINI-B 100 ML IV SCH ×2 (04:40→16:15)
[2023-09-15] MEDS ORDERED: LORazepam 0.25 MG in SYRINGE 0.125 ML IV STA (05:05)
[2023-09-15 07:24] LABS: Hematocrit (blood only) 32.7 % (42.0-52.0); Hemoglobin 10.9 g/dl (14.0-18.0)
[2023-09-15] MEDS: PANTOprazole 40 MG in SYRINGE 0 ML IV SCH ×2 (07:50→19:57)
[2023-09-15] MEDS: METOCLOPRAMIDE HCL INJ 5 MG/ML 2 ML VIAL IV SCH ×3 (07:50→16:42)
[2023-09-15] MEDS: PANCREAZE (LIPASE 10,500U) CAP PO SCH ×3 (07:52→16:42)
[2023-09-15] MEDS: amLODIPine BESYLATE 5 MG TAB PO SCH (07:52)
[2023-09-15] MEDS: THIAMINE HCL 100 MG TAB PO SCH (07:52)
[2023-09-15] MEDS: MICONAZOLE NITRATE POWDER 85 GM EXT SCH ×2 (07:53→19:57)
[2023-09-15] MEDS: SUCRALFATE 1 GM/10 ML UDC PO SCH ×4 (07:53→19:58)
[2023-09-15 08:03] LABS: BUN Creatinine Ratio 21.6 (10-20); Bilirubin Direct 0.1 mg/dl (0-0.2); Bilirubin,Total 0.4 mg/dl (0.2-1.0); C Reactive Protein 1.85 mg/dl (0-0.5); Calcium 8.8 mg/dl (8.6-10.3); Creatinine Clr Calc Pharmacy 19.4 ml/min; Est GFR (African American) 27.5 ml/min; Est GFR (Non-African American) 23.7 ml/min; Phosphorus 4.2 mg/dl (2.5-4.9); Potassium 4.5 mmol/L (3.5-5.1); Total Protein 6.8 gm/dl (6.0-8.3)
[2023-09-15] MEDS: droNABinol 2.5 MG CAP PO SCH (11:09)
[2023-09-15] MEDS: CHOLECALCIFEROL 5,000 UNITS 125 MCG TAB PO SCH (11:09)
--- NOTE | 2023-09-15 12:27 | Nephrology Progress Note ---
Date of Service September 15, 2023 Assessment & Plan (1) Acute kidney injury: Plan: Attributed to ATN. Dependent on HD. No signs of renal recovery. Orders for HD entered into the EHR and reviewed with scudding inspector. TDC has been functioning well. Started HD 08/12/23. TDC placed 08/16/[address] Kamara. Medications are appropriately dosed for kidney function. (2) Intra-abdominal abscess: Plan: Remains on daptomycin, Zosyn, and fluconazole. Medications appropriate for kidney function. CK weekly on dapto. PPN continues. Updated CT scan reviewed. Plan of care discussed with Dr. Finch. (3) Hypertension: Plan: BP controlled with metoprolol. Admission and Anticipated Discharge Date Admission Date: June 28, 2023 Sean Galan is very confused and appears to be actively hallucinating this AM. He was seen and evaluated prior to and during hemodialysis. No fevers or chills. No pain. BP acceptable. Review of Systems Review of Systems: All systems reviewed & are unremarkable except as noted in HPI & below Physical Exam Constitutional: well developed, + thin, + cachectic and + frail appearing; no acute distress Eyes: + anicteric sclerae; no corneal abnormal ity ENMT: Mouth: no oral mucosal abnormality and oral mucous membranes not dry Neck: normal visual inspection and trachea midline Respiratory: normal respiratory effort Auscultation: lungs clear to auscultation bilaterally Cardiovascular: Rate/Rhythm: regular rate Heart Sounds: normal S1 and normal S2 Extremities: no edema Musculoskeletal: Extremities: no cyanosis and no clubbing Skin: normal turgor and + turgor decreased; no jaundice Neurologic: Motor/Sensory: no tremor and no asterixis Psychiatric: Orientation: alert, oriented x 3, oriented to person, oriented to place and cooperative Results & Data Vital Signs (Past 12 Hours) Vital Signs Temp Pulse Pulse Pulse Pulse Resp BP 09/15/23 12:00 132 H 129/92 09/15/23 11:30 133 H 157/101 H 09/15/23 11:00 121 H 162/101 H 09/15/23 10:30 119 H 121/77 09/15/23 10:00 103 H 164/110 H 09/15/23 09:30 101 H 166/106 H 09/15/23 09:11 36.9 C 107 H 107 H 09/15/23 08:03 85 09/15/23 07:21 36.9 C 117 H 09/15/23 05:00 37.0 C 90 18 09/15/23 01:30 36.8 C 89 18 BP Pulse Ox O2 Del Method 09/15/23 12:00 09/15/23 11:30 09/15/23 11:00 09/15/23 10:30 09/15/23 10:00 09/15/23 09:30 09/15/23 09:11 09/15/23 08:03 09/15/23 07:21 158/101 H 97 Room Air 09/15/23 05:00 152/80 H 96 Room Air 09/15/23 01:30 148/80 H 97 Room Air Laboratory Results Laboratory Results - last 24 hr 09/14/23 09/15/23 18:45 06:38 Hgb 10.9 L Hct 32.7 L Sodium 135 L Potassium 4.5 Chloride 106 Carbon Dioxide 17 L Anion Gap 12 H BUN 62 H D Creatinine 2.87 H D Est Cr Clr Drug Dosing 19.4 Est GFR ( Amer) 27.5 Est GFR (Non-Af Amer) 23.7 BUN/Creatinine Ratio 21.6 H Glucose 117 H Calcium 8.8 Phosphorus 4.2 Magnesium 2.0 Total Bilirubin 0.4 Direct Bilirubin 0.1 AST 28 ALT 46 Alkaline Phosphatase 380 H C-Reactive Protein 1.85 H Total Protein 6.8 Albumin 3.0 L Triglycerides 140 Cholesterol Cancelled LDL Cholesterol, Calc Cancelled VLDL Cholesterol, Calc Cancelled HDL Cholesterol Cancelled Cholesterol/HDL Ratio Cancelled Lipase 209 H 25-OH Vitamin D Total 18.3 L Stl C. diff Tox B Gene Negative Cdiff Gene PG Care Time/CCT Total # of Minutes Spent Total Time Spent with Patient: Total time spent is greater than 50% in coordination of care (as documented) at patient's floor/unit and/or counseling patient: Coding Level of Care Code 47533 SUB INP/OBS CARE 3/50MIN Diagnoses Acute kidney injury N17.9 Intra-abdominal abscess K65.1 Hypertension I10
[2023-09-15] MEDS ORDERED: HALOPERIDOL LACTATE 5 MG/ML 1 ML VIAL IM STA (15:53)
--- NOTE | 2023-09-15 15:56 | Hospitalist Progress Note ---
Date of Service September 15, 2023 Assessment & Plan (1) Encephalopathy: Plan: acute encephalopathy - multifactorial - hospital delirium, insomnia, thiamine deficiency/Wernicke's encephalopathy, renal failure, etc. toxic effects from reglan and marinol possible. both meds stopped this afternoon. has not had tramadol in a few days but will stop it as well. Head CT x 2 both negative this admission s/p thigh-dose thiamine earlier in the stay; now on maintenance thiamine 200 mg daily was on antipsychotics earlier in the stay (seroquel, zyprexa) but these were stopped ~09/07/23 as his confusion had improved STOP ativan/sedatives - these made his confusion worse s/p haldol 2mg IM x 1 --> was relatively effective will order haldol 2.5mg IM q8h prn agitation/delirium if he develops fever obtain u/a, urine cx, blood cx's, and RSV/COVID/flu swab if confusion worsens consider repeat imaging of head (2) Abdominal pain: Plan: He is nearly 3 months post-op from his extensive exploratory laparotomy surgery performed on 06/28/23. He should not have pain from his original surgery at this point. Scar tissue can cause intermittent discomforts but not ongoing abdominal pain. Pain could be gastric in etiology given the ongoing gastric wall thickening seen on CT. CT was repeated 09/14/23. Could be from #3. Could be infectious. Could be acute pancreatitis as prior lipase levels were normal and today it is 209. Will d/w [facility] - consider EGD given the abnormalities seen on CT of the stomach. Trial of creon w/ meals given #[address] Of note - the ongoing pain coupled with anorexia has led to ongoing weight loss and failure to thrive. Downgrade diet to clears. PPN but hold lipids in such. Repeat lipase am. (3) Chronic pancreatitis: Plan: as seen on CT abd/pelvis (calcifications of pancreas seen) started creon 2 capsules with meals --> stool from osteomy is thicker today can't exclude component of acute pancreatitis as prior lipase levels were normal and now it is 209 repeat lipase am (4) Abnormal CT scan, stomach: Plan: * perisplenic fluid collection continues to decrease in size * gastric wall continues to appear abnormal * pancreatic calcifications noted c/w chronic pancreatitis see discussion above (5) Perforated abdominal viscus: Plan: Presented with free air and signs of intra-abdominal abscess/fluid collection formation on 06/28/23. This was in the setting of recent colonoscopy on 06/15/23 which showed signs of severe, pancolitis. Biopsies were c/w Ulcerative colitis. Went to OR on 06/28/23 with subtotal colon resection with rectal stump remaining along with ileostomy formation. Three areas of perforation were identified, abscess and feculent material seen. Pseudomonas, MSSA, and Enterococcus faecium as well as Mariely albicans isolated from intra-op cultures. continue daptomycin, Zosyn, and renally adjusted fluconazole through September 19, 2023 as previously recommended by ID. of note - switched cefepime to IV Zosyn 08/10 due to concern for cefepime induced neurotoxicity. Discontinued metronidazole after completing course on 08/10 dronabinol and mirtazapine added for poor appetite IV reglan and IV PPI also added unfortunately appetite and overall intake remain poor he continues with abdominal pain -- see discussion above remains on PPN (6) Ulcerative colitis: Plan: Patient with dailey ulcerative colitis diagnosed by colonoscopy 06/2023 Now status post subtotal colectomy with only rectal stump remaining and has ileostomy No treatment at this point but will need continued surveillance for colorectal CA of the rectal stump Will need follow-up with GI as an outpatient (7) Acute kidney injury: Plan: First noted 07/25/23 ATN suspected as cause of DERIK OSWALDO from CT scans also possible Ultimately developed volume overload in setting of his DERIK Never had renal recovery dialysis started on 08/12 continues on HD [facility] schedule Permcath/Tunneled HD line placed 09/01/2023 appreciate nephrology assistance (8) Severe protein-calorie malnutrition: Plan: appetite remains poor caloric intake is very poor 12kg weight loss since May remains cachectic remains on PPN for now will d/w GI the possibility of obtaining EGD to look at stomach given ongoing abnormalities of stomach on CT will patient ultimately need a J-tube? other? (9) Acute hypoxic respiratory failure: Plan: 2nd volume overload resolved (10) Acute blood loss anemia: Plan: transfused total 5 units PRBCs this admission B12, folate, iron studies normal TSH mildly elevated and free T4 mildly low - would repeat in a week or two H/H today stable (11) Hard of hearing: Plan: severe hearing impairment Supportive care, wears hearing device (12) Ileostomy in place: Plan: functioning well radiographically the ileostomy appears wnl he is having pure liquid stool from the ostomy -- checked a c diff --> negative added pancrease yesterday for chronic pancreatitis - this has helped bulking of stool (13) Hypertension: Plan: cont amlodipine 5mg daily (14) Abdominal fluid collection: Plan: Per CT a/p on 09/14/23 - "There is continued decreased size of the perisplenic fluid collection approximate 6.3 x 1.2 cm. This measured 8.3 x 2.4 cm on the August 2023 study." This is good news. The decrease in size portends resolution. Cont IV antibiotics & antifungals through 09/19 as previously advised by infectious diseases. will reach out to ID this week. (15) Vitamin D deficiency: Plan: 25-OH vit D level = 18 start vit D 5000 IU daily Plan Previous attending physicians had extensive discussions with the [facility] - dialysis needs to be arranged at [facility]. Discussion also held with physicians at [facility] system which is more of a [facility] type convalescent facility. At this time they are reluctant to take the patient in transfer following his prolonged admission here. PT/OT both advising rehab post-d/c --> [facility] would be best given his medical complexity Admission and Anticipated Discharge Date Admission Date: June 28, 2023 Subjective overnight the patient was very confused and had visual hallucinations - talking to people not in the room, etc received multiple doses of IV/PO ativan overnight without any positive effect he remained confused all morning and throughout dialysis today he did not sleep most of the night last night when I saw the patient today he was in 4-point handcuffs he was very confused he did not remember me from yesterday he was agitated, pulling at the handcuffs, trying to sit up in bed, etc he also was talking to people in the corner of the room that weren't there an examination was not possible at that time order for haldol 2mg IM x 1 was given he ultimately did settle down when I returned about 90 minutes later he was sleeping I was able to complete an exam Review of Systems Review of Systems: Unobtainable due to cognitive status Physical Exam Physical Exam: gen - cachectic, confused, agitated, pulling at handcuffs HENT - MMM neck - no JVD heart - RRR, s1 s2, no murmur lungs - decreased BS b/l bases o/w CTA b/l abd - soft, NT, ND, no palpable masses, ileostomy in place R abdomen, stoma clean, stool is thicker consistency today vs the green liquid stool present yesterday ext - no edema, pulses 2+ b/l neuro - muscle wasting of all 4 limbs; pulling at the handcuffs vascular - permcath present right upper chest - clean psych - oriented to self only Results & Data Results & Data Vital Signs (Past 12 Hours) Vital Signs Temp Pulse Pulse Pulse Pulse Resp BP 09/15/23 14:05 36.4 C L 99 H 16 09/15/23 12:56 36.6 C 114 H 15 09/15/23 12:25 36.6 C 103 H 09/15/23 12:11 36.6 C 130 H 146/104 H 09/15/23 12:00 132 H 129/92 09/15/23 11:30 133 H 157/101 H 09/15/23 11:00 121 H 162/101 H 09/15/23 10:30 119 H 121/77 09/15/23 10:00 103 H 164/110 H 09/15/23 09:30 101 H 166/106 H 09/15/23 09:11 36.9 C 107 H 09/15/23 08:03 85 09/15/23 07:21 36.9 C 117 H 09/15/23 05:00 37.0 C 90 18 BP BP Pulse Ox O2 Del Method 09/15/23 14:05 173/93 H 99 Room Air 09/15/23 12:56 166/87 H 98 Room Air 09/15/23 12:25 146/104 H 09/15/23 12:11 09/15/23 12:00 09/15/23 11:30 09/15/23 11:00 09/15/23 10:30 09/15/23 10:00 09/15/23 09:30 09/15/23 09:11 09/15/23 08:03 09/15/23 07:21 158/101 H 97 Room Air 09/15/23 05:00 152/80 H 96 Room Air Laboratory Results Laboratory Results - last 24 hr 09/15/23 06:38 Hgb 10.9 L Hct 32.7 L Sodium 135 L Potassium 4.5 Chloride 106 Carbon Dioxide 17 L Anion Gap 12 H BUN 62 H D Creatinine 2.87 H D Est Cr Clr Drug Dosing 19.4 Est GFR ( Amer) 27.5 Est GFR (Non-Af Amer) 23.7 BUN/Creatinine Ratio 21.6 H Glucose 117 H Calcium 8.8 Phosphorus 4.2 Magnesium 2.0 Total Bilirubin 0.4 Direct Bilirubin 0.1 AST 28 ALT 46 Alkaline Phosphatase 380 H C-Reactive Protein 1.85 H Total Protein 6.8 Albumin 3.0 L Triglycerides 140 Cholesterol Cancelled LDL Cholesterol, Calc Cancelled VLDL Cholesterol, Calc Cancelled HDL Cholesterol Cancelled Cholesterol/HDL Ratio Cancelled Lipase 209 H 25-OH Vitamin D Total 18.3 L PG Care Time/CCT Total # of Minutes Spent Total Time Spent with Patient: Total time spent is greater than 50% in coordination of care (as documented) at patient's floor/unit and/or counseling patient: Coding Level of Care Code 52199 SUB INP/OBS CARE 3/50MIN Diagnoses Encephalopathy G93.40 Abdominal pain R10.9 Chronic [address]itis K86.[address] scan, stomach R93.3 Perforated abdominal viscus R19.8 Ulcerative pancolitis with abscess K51.014 Digestive disease complication type: with abscess Ulcerative colitis location: ulcerative pancolitis Acute kidney injury N17.9 Severe protein-calorie malnutrition E43 Acute hypoxic respiratory failure J96.01 Acute blood loss anemia D62 Bilateral hearing loss, unspecified hearing loss type H91.93 Hearing loss type: unspecified Laterality: bilateral Ileostomy in place Z93.2 Hypertension I10 Abdominal fluid collection R18.8 Vitamin D deficiency E55.9 (6) Ulcerative colitis Digestive disease complication type: with abscess Ulcerative colitis loca tion: ulcerative pancolitis Qualified Code(s): K51.014 - Ulcerative (chronic) pancolitis with abscess (11) Hard of hearing Hearing loss type: unspecified Laterality: bilateral Qualified Code(s): H91.93 - Unspecified hearing loss, bilateral
[2023-09-15] MEDS ORDERED: [UNRECOGNIZED DRUG - OTHER] IV SCH (16:00)
[2023-09-15] MEDS ORDERED: PERIPHERAL TPN IV SCH (16:00)
[2023-09-15] MEDS ORDERED: HALOPERIDOL LACTATE 5 MG/ML 1 ML VIAL IM PRN (16:34)
[2023-09-15] MEDS: MIRTAZAPINE TAB 15 MG TAB PO SCH (19:58)
[2023-09-15] MEDS: FLUCONAZOLE 200 MG/100 ML BAG IV SCH (19:59)
[2023-09-16] MEDS: PIPERACILLIN/TAZOBACTAM 4.5 GM in DEXTROSE 5% MINI-B 100 ML IV SCH ×2 (04:17→15:52)
[2023-09-16] MEDS: PANTOprazole 40 MG in SYRINGE 0 ML IV SCH ×2 (07:58→19:54)
[2023-09-16] MEDS: MICONAZOLE NITRATE POWDER 85 GM EXT SCH ×2 (07:59→19:55)
[2023-09-16] MEDS: amLODIPine BESYLATE 5 MG TAB PO SCH (08:16)
[2023-09-16] MEDS: PANCREAZE (LIPASE 10,500U) CAP PO SCH ×3 (08:16→17:43)
[2023-09-16] MEDS: SUCRALFATE 1 GM/10 ML UDC PO SCH ×4 (08:16→19:54)
[2023-09-16] MEDS: CHOLECALCIFEROL 5,000 UNITS 125 MCG TAB PO SCH (08:16)
[2023-09-16] MEDS: THIAMINE HCL 100 MG TAB PO SCH (08:16)
--- NOTE | 2023-09-16 10:59 | Nephrology Progress Note ---
Date of Service September 16, 2023 Assessment & Plan (1) Acute kidney injury: Plan: Attributed to ATN. Dependent on HD. No signs of renal recovery. Volume status and BP acceptable. Adequate clearance with HD yesterday. Next treatment planned for tomorrow. TDC has been functioning well. Started HD 08/12/23. TDC placed 08/16/[address] Kamara. Medications are appropriately dosed for kidney function. (2) Intra-abdominal abscess: Plan: Remains on daptomycin, Zosyn, and fluconazole. Medications appropriate for kidney function. CK weekly on dapto. PPN continues. (3) Hypertension: Plan: BP reasonably controlled with metoprolol. Admission and Anticipated Discharge Date Admission Date: June 28, 2023 Subjective No acute events overnight. Orientation/mental status significantly improved this AM. Ate a small amount for breakfast. Remains on liquid diet. No fevers or chills. Tolerated HD well without complications. Review of Systems Review of Systems: All systems reviewed & are unremarkable except as noted in HPI & below Physical Exam Constitutional: well developed, + thin, + cachectic and + frail appearing; no acute distress Eyes: + anicteric sclerae; no corneal abnormal ity ENMT: Mouth: no oral mucosal abnormality and oral mucous membranes not dry Neck: normal visual inspection and trachea midline Respiratory: normal respiratory effort Auscultation: lungs clear to auscultation bilaterally Cardiovascular: Rate/Rhythm: regular rate Heart Sounds: normal S1 and normal S2 Extremities: no edema Musculoskeletal: Extremities: no cyanosis and no clubbing Skin: normal turgor; no jaundice Neurologic: Motor/Sensory: no tremor and no asterixis Psychiatric: Orientation: alert and oriented x 3 Results & Data Vital Signs (Past 12 Hours) Vital Signs Temp Pulse Resp BP Pulse Ox O2 Del Method 09/16/23 08:10 36.5 C 87 14 174/98 H 99 Room Air Laboratory Results Laboratory Results - last 24 hr 09/16/23 06:28 Sodium Pending Potassium Pending Chloride Pending Carbon Dioxide Pending Anion Gap Pending BUN Pending Creatinine Pending Est Cr Clr Drug Dosing Pending Est GFR ( Amer) Pending Est GFR (Non-Af Amer) Pending BUN/Creatinine Ratio Pending Glucose Pending Calcium Pending Phosphorus Pending Magnesium Pending Total Creatine Kinase Pending Lipase Pending PG Care Time/CCT Total # of Minutes Spent Total Time Spent with Patient: Total time spent is greater than 50% in coordination of care (as documented) at patient's floor/unit and/or counseling patient: Coding Level of Care Code 46039 SUB INP/OBS CARE 350MIN Diagnoses Acute kidney injury N17.9 Intra-abdominal abscess K65.1 Hypertension I10
[2023-09-16 11:59] LABS: BUN Creatinine Ratio 22.8 (10-20); Calcium 8.7 mg/dl (8.6-10.3); Creatinine Clr Calc Pharmacy 28.8 ml/min; Est GFR (African American) 44.5 ml/min; Est GFR (Non-African American) 38.4 ml/min; Magnesium 2.2 mg/dl (1.7-2.4); Phosphorus 4.1 mg/dl (2.5-4.9)
[2023-09-16] MEDS ORDERED: PERIPHERAL TPN IV SCH (16:00)
[2023-09-16] MEDS ORDERED: [UNRECOGNIZED DRUG - OTHER] IV SCH (16:00)
[2023-09-16] MEDS: MIRTAZAPINE TAB 15 MG TAB PO SCH (19:55)
--- NOTE | 2023-09-16 19:58 | Hospitalist Progress Note ---
Date of Service September 16, 2023 Assessment & Plan (1) Encephalopathy: Plan: acute encephalopathy - multifactorial - hospital delirium, insomnia, thiamine deficiency/Wernicke's encephalopathy, renal failure, etc. toxic effects from reglan and marinol also suspected. both meds stopped 09/15. has not had tramadol in a few days but this was stopped as well. ativan stopped - made confusion worse. Head CT x 2 both negative this admission s/p thigh-dose thiamine earlier in the stay; now on maintenance thiamine 200 mg daily was on antipsychotics earlier in the stay (seroquel, zyprexa) but these were stopped ~09/07/23 as his confusion had improved haldol 2.5mg IM q8h prn agitation/delirium if he develops fever obtain u/a, urine cx, blood cx's, and RSV/COVID/flu swab if confusion recurs worsens consider repeat imaging of head (2) Abdominal pain: Plan: He is nearly 3 months post-op from his extensive exploratory laparotomy surgery performed on 06/28/23. He should not have pain from his original surgery at this point. Scar tissue can cause intermittent discomforts but not ongoing abdominal pain. Pain could be gastric in etiology given the ongoing gastric wall thickening seen on CT. CT was repeated 09/14/23. Could be from #3. Could be acute pancreatitis as prior lipase levels were normal and on 09/15/23 it was 209. Trial of creon w/ meals given #[address]. Of note - the ongoing pain coupled with anorexia has led to ongoing weight loss and failure to thrive. Tolerating clears. Increase to full liquids. If doing well tomorrow advance to low fat. Cont PPN but hold lipids again. Repeat lipase am. (3) Chronic pancreatitis: Plan: as seen on CT abd/pelvis (calcifications of pancreas seen) started creon 2 capsules with meals can't exclude component of acute pancreatitis as prior lipase levels were normal and now it amie to 209 repeat lipase am (4) Abnormal CT scan, stomach: Plan: * perisplenic fluid collection continues to decrease in size * gastric wall continues to appear abnormal * pancreatic calcifications noted c/w chronic pancreatitis see discussion above (5) Perforated abdominal viscus: Plan: Presented with free air and signs of intra-abdominal abscess/fluid collection formation on 06/28/23. This was in the setting of recent colonoscopy on 06/15/23 which showed signs of severe, pancolitis. Biopsies were c/w Ulcerative colitis. Went to OR on 06/28/23 with subtotal colon resection with rectal stump remaining along with ileostomy formation. Three areas of perforation were identified, abscess and feculent material seen. Pseudomonas, MSSA, and Enterococcus faecium as well as Mariely albicans isolated from intra-op cultures. continue daptomycin, Zosyn, and renally adjusted fluconazole through September 19, 2023 as previously recommended by ID. of note - switched cefepime to IV Zosyn 08/10 due to concern for cefepime induced neurotoxicity. Discontinued metronidazole after completing course on 08/10 dronabinol stopped due to confusion/delirium reglan stopped (6) Ulcerative colitis: Plan: Patient with dailey ulcerative colitis diagnosed by colonoscopy 06/2023 Now status post subtotal colectomy with only rectal stump remaining and has ileostomy No treatment at this point but will need continued surveillance for colorectal CA of the rectal stump Will need follow-up with GI as an outpatient (7) Acute kidney injury: Plan: First noted 07/25/23 ATN suspected as cause of DERIK OSWALDO from CT scans also possible Ultimately developed volume overload in setting of his DERIK Never had renal recovery dialysis started on 08/12 continues on HD [facility] schedule Permcath/Tunneled HD line placed 09/01/2023 appreciate nephrology assistance (8) Severe protein-calorie malnutrition: Plan: appetite remains poor caloric intake is very poor 12kg weight loss since May remains cachectic remains on PPN for now will d/w GI the possibility of obtaining EGD to look at stomach given ongoing abnormalities of stomach on CT but defer for now since the pancreas may have been the cause of his recent symptoms will patient ultimately need a J-tube or other tube for nutritional purposes? (9) Acute hypoxic respiratory failure: Plan: 2nd volume overload resolved (10) Acute blood loss anemia: Plan: transfused total 5 units PRBCs this admission B12, folate, iron studies normal TSH mildly elevated and free T4 mildly low - would repeat in a week or two H/H stable (11) Hard of hearing: Plan: severe hearing impairment Supportive care, wears hearing device (12) Ileostomy in place: Plan: functioning well radiographically the ileostomy appears wnl he is having pure liquid stool from the ostomy -- checked a c diff --> negative added pancrease for chronic pancreatitis if stool output doesn't slow consider questran or loperamide (13) Hypertension: Plan: cont amlodipine 5mg daily (14) Abdominal fluid collection: Plan: Per CT a/p on 09/14/23 - "There is continued decreased size of the perisplenic fluid collection approximate 6.3 x 1.2 cm. This measured 8.3 x 2.4 cm on the August 2023 study." This is good news. The decrease in size portends resolution. Cont IV antibiotics & antifungals through 09/19 as previously advised by infectious diseases. will reach out to ID this week. (15) Vitamin D deficiency: Plan: 25-OH vit D level = 18 started vit D 5000 IU daily Plan Previous attending physicians had extensive discussions with the skilled nursing system - dialysis needs to be arranged at [facility]. Discussion also held with physicians at [facility] which is more of a [facility] type [facility]. At this time they are reluctant to take the patient in transfer following his prolonged admission here. PT/OT both advising rehab post-d/c --> [facility] would be best given his medical complexity Admission and Anticipated Discharge Date Admission Date: June 28, 2023 Subjective overnight his confusion gradually improved less agitated overnight vs the daytime yesterday did not require additional IM haldol overnight he tolerated clears for lunch today he asks for more food denies any abd pain did have mild nausea earlier no vomiting Review of Systems Review of Systems: pulm - no dyspnea CV - no chest pain GI - no pain gen - tired, weak, fatigue Physical Exam Physical Exam: gen - cachectic, sleeping upon arrival, easily arouses, not confused today, not agitated HENT - MMM, no thrush neck - no JVD heart - RRR, s1 s2, no murmur lungs - decreased BS b/l bases o/w CTA b/l abd - soft, NT, ND, no palpable masses, ileostomy in place R abdomen, stoma clean, stool is very liquid today ext - no edema, pulses 2+ b/l neuro - muscle wasting of all 4 limbs vascular - permcath present right upper chest - clean psych - a/o x 3 Results & Data Results & Data Vital Signs (Past 12 Hours) Vital Signs Temp Pulse Resp BP Pulse Ox O2 Del Method 09/16/23 16:05 36.9 C 86 14 166/91 H 98 Room Air 09/16/23 08:10 Room Air 09/16/23 08:10 36.5 C 87 14 174/98 H 99 Room Air Laboratory Results Laboratory Results - last 24 hr 09/16/23 11:24 Sodium 136 Potassium 4.0 Chloride 105 Carbon Dioxide 22 Anion Gap 9 BUN 44 H Creatinine 1.93 H D Est Cr Clr Drug Dosing 28.8 Est GFR ( Amer) 44.5 Est GFR (Non-Af Amer) 38.4 BUN/Creatinine Ratio 22.8 H Glucose 86 Calcium 8.7 Phosphorus 4.1 Magnesium 2.2 Total Creatine Kinase 27 L Lipase 127 H PG Care Time/CCT Total # of Minutes Spent Total Time Spent with Patient: Total time spent is greater than 50% in coordination of care (as documented) at patient's floor/unit and/or counseling patient: Coding Level of Care Code 54087 SUB INP/OBS CARE 2/35MIN Diagnoses Encephalopathy G93.40 Abdominal pain R10.9 Chronic pancreatitis K86.[address] scan, stomach R93.3 Perforated abdominal viscus R19.8 Ulcerative pancolitis with abscess K51.014 Ulcerative colitis location: ulcerative pancolitis Digestive disease complication type: with abscess Acute kidney injury N17.9 Severe protein-calorie malnutrition E43 Acute hypoxic respiratory failure J96.01 Acute blood loss anemia D62 Bilateral hearing loss, unspecified hearing loss type H91.93 Hearing loss type: unspecified Laterality: bilateral Ileostomy in place Z93.2 Hypertension I10 Abdominal fluid collection R18.8 Vitamin D deficiency E55.9 (6) Ulcerative colitis Ulcerative colitis location: ulcerative pancolitis Digestive disease complication type: with abscess Qualified Code(s): K51.014 - Ulcerative (chronic) pancolitis with abscess (11) Hard of hearing Hearing loss type: unspecified Laterality: bilateral Qualified Code(s): H91.93 - Unspecified hearing loss, bilateral
[2023-09-16] MEDS: DAPTOmycin 600 MG in SYRINGE 0 ML IV SCH (19:59)
[2023-09-16] MEDS: FLUCONAZOLE 200 MG/100 ML BAG IV SCH (20:00)
[2023-09-17] MEDS: PIPERACILLIN/TAZOBACTAM 4.5 GM in DEXTROSE 5% MINI-B 100 ML IV SCH ×2 (04:50→15:54)
--- NOTE | 2023-09-17 05:05 | Communication Note ---
Date of Service: September 17, 2023 Patient refusing IV abx overnight. Resident Activity Tracking Resident Involvement: Resident Care Provided Care Provided: [facility]
[2023-09-17 07:32] LABS: Calcium 8.9 mg/dl (8.6-10.3); Creatinine Clr Calc Pharmacy 24.8 ml/min; Est GFR (African American) 37.1 ml/min; Potassium 4.2 mmol/L (3.5-5.1)
[2023-09-17] MEDS: amLODIPine BESYLATE 5 MG TAB PO SCH (09:22)
[2023-09-17] MEDS: SUCRALFATE 1 GM/10 ML UDC PO SCH ×4 (09:22→20:24)
[2023-09-17] MEDS: MICONAZOLE NITRATE POWDER 85 GM EXT SCH ×2 (09:22→18:28)
[2023-09-17] MEDS: PANCREAZE (LIPASE 10,500U) CAP PO SCH ×3 (09:22→17:35)
--- NOTE | 2023-09-17 10:39 | Nephrology Progress Note ---
Date of Service September 17, 2023 Assessment & Plan (1) Acute kidney injury: Plan: Attributed to ATN. Dependent on HD. No signs of renal recovery. Remains on MWF schedule. Orders for HD entered into the EHR today and reviewed with lard tub washer. Tolerating treatment well. Qb at goal. TDC has been functioning well. Started HD 08/12/23. TDC placed 08/16/[address] Kamara. Medications are appropriately dosed for kidney function. Cautious use of carafate with monitoring. (2) Intra-abdominal abscess: Plan: Remains on daptomycin, Zosyn, and fluconazole. Medications appropriate for kidney function. CK weekly on dapto. PPN continues. (3) Hypertension: Plan: BP controlled with amlodipine. Admission and Anticipated Discharge Date Admission Date: June 28, 2023 Subjective No acute events overnight. Awake and oriented this AM. Refused breakfast because he was not happy with liquid diet options. Overall, Adama feels well. He was seen and evaluated during dialysis and is tolerating treatment well. Review of Systems Review of Systems: All systems reviewed & are unremarkable except as noted in HPI & below Physical Exam Constitutional: well developed, + thin, + cachectic and + frail appearing; no acute distress Eyes: + anicteric sclerae; no corneal abnormal ity ENMT: Mouth: no oral mucosal abnormality and oral mucous membranes not dry Neck: normal visual inspection and trachea midline Respiratory: normal respiratory effort Auscultation: lungs clear to auscultation bilaterally Cardiovascular: Rate/Rhythm: regular rate Heart Sounds: normal S1 and normal S2 Extremities: no edema Musculoskeletal: Extremities: no cyanosis and no clubbing Skin: normal turgor and + turgor decreased; no jaundice Neurologic: Motor/Sensory: no tremor and no asterixis Psychiatric: Orientation: alert, oriented x 3, oriented to person, oriented to place and cooperative Results & Data Vital Signs (Past 12 Hours) Vital Signs Temp Pulse Pulse Pulse Resp BP BP 09/17/23 10:30 102 H 137/99 09/17/23 10:00 99 H 145/103 H 09/17/23 09:30 86 138/76 09/17/23 09:08 36.9 C 81 163/61 H 09/17/23 09:05 36.9 C 89 09/17/23 07:19 36.7 C 80 16 163/86 H Pulse Ox O2 Del Method 09/17/23 10:30 09/17/23 10:00 09/17/23 09:30 09/17/23 09:08 09/17/23 09:05 09/17/23 07:19 98 Room Air Laboratory Results Laboratory Results - last 24 hr 09/16/23 09/17/23 11:24 06:50 Sodium 136 137 Potassium 4.0 4.2 Chloride 105 106 Carbon Dioxide 22 23 Anion Gap 9 8 BUN 44 H 56 H Creatinine 1.93 H D 2.24 H D Est Cr Clr Drug Dosing 28.8 24.8 Est GFR ( Amer) 44.5 37.1 Est GFR (Non-Af Amer) 38.4 32.0 BUN/Creatinine Ratio 22.8 H 25.0 H Glucose 86 109 H Calcium 8.7 8.9 Phosphorus 4.1 4.0 Magnesium 2.2 2.0 Total Creatine Kinase 27 L Lipase 127 H 156 H PG Care Time/CCT Total # of Minutes Spent Total Time Spent with Patient: Total time spent is greater than 50% in coordination of care (as documented) at patient's floor/unit and/or counseling patient: Coding Level of Care Code 85377 SUB INP/OBS CARE 3/50MIN Diagnoses Acute kidney injury N17.9 Intra-abdominal abscess K65.1 Hypertension I10
[2023-09-17] MEDS: CHOLECALCIFEROL 5,000 UNITS 125 MCG TAB PO SCH (13:18)
[2023-09-17] MEDS: PANTOprazole 40 MG in SYRINGE 0 ML IV SCH ×2 (13:18→20:24)
[2023-09-17] MEDS: THIAMINE HCL 100 MG TAB PO SCH (13:18)
[2023-09-17] MEDS ORDERED: PERIPHERAL TPN IV SCH (16:00)
[2023-09-17] MEDS ORDERED: [UNRECOGNIZED DRUG - OTHER] IV SCH (16:00)
[2023-09-17] MEDS: CHOLESTYRAMINE LIGHT 4 GM PKT PO SCH (18:36)
[2023-09-17] MEDS: MIRTAZAPINE TAB 15 MG TAB PO SCH (20:24)
[2023-09-17] MEDS: FLUCONAZOLE 200 MG/100 ML BAG IV SCH (20:24)
--- NOTE | 2023-09-17 23:44 | Hospitalist Progress Note ---
Date of Service September 17, 2023 Assessment & Plan (1) Encephalopathy: Plan: improved has had encephalopathy off/on throughout the stay likely multifactorial - hospital delirium, insomnia, thiamine deficiency/Wernicke's encephalopathy, renal failure, etc. most recent confusion was likely due to toxic effects from reglan and marinol both meds stopped /. has not had tramadol in a few days but this was stopped as well. ativan stopped - made confusion worse. Head CT x 2 both negative this admission s/p thigh-dose thiamine earlier in the stay; now on maintenance thiamine 200 mg daily was on antipsychotics earlier in the stay (seroquel, zyprexa) but these were stopped ~09/07/23 as his confusion had improved ordered haldol 2.5mg IM q8h prn agitation/delirium (2) Abdominal pain: Plan: He is nearly 3 months post-op from his extensive exploratory laparotomy surgery performed on 06/28/23. He should not have pain from his original surgery at this point. Scar tissue can cause intermittent discomforts but not ongoing abdominal pain. Pain could be gastric in etiology given the ongoing gastric wall thickening seen on CT. CT was repeated 09/14/23. Could be from #3. Could be acute pancreatitis as prior lipase levels were normal and on 09/15/23 it was 209. Trial of creon w/ meals given #[address]. Of note - the ongoing pain coupled with anorexia has led to ongoing weight loss and failure to thrive. Tolerated clears. Tolerated full liquids. Advance to low fat. Cont PPN but hold lipids. (3) Chronic pancreatitis: Plan: as seen on CT abd/pelvis (calcifications of pancreas seen) started creon 2 capsules with meals can't exclude component of acute pancreatitis as prior lipase levels were normal and now it amie to peak of 209 repeat lipase today noted (4) Abnormal CT scan, stomach: Plan: * perisplenic fluid collection continues to decrease in size * gastric wall continues to appear abnormal * pancreatic calcifications noted c/w chronic pancreatitis see discussion above (5) Perforated abdominal viscus: Plan: Presented with free air and signs of intra-abdominal abscess/fluid collection formation on 06/28/23. This was in the setting of recent colonoscopy on 06/15/23 which showed signs of severe, pancolitis. Biopsies were c/w Ulcerative colitis. Went to OR on 06/28/23 with subtotal colon resection with rectal stump remaining along with ileostomy formation. Three areas of perforation were identified, abscess and feculent material seen. Pseudomonas, MSSA, and Enterococcus faecium as well as Mariely albicans isolated from intra-op cultures. Original plan was to continue daptomycin, Zosyn, and renally adjusted fluconazole through September 19, 2023. However, I spoke with ID today and they advise to continue the above antibiotics beyond 09/19 as the fluid collection has not resolved of note - switched cefepime to IV Zosyn 08/10 due to concern for cefepime induced neurotoxicity. Discontinued metronidazole after completing course on 08/10 dronabinol stopped due to confusion/delirium reglan stopped (6) Ulcerative colitis: Plan: Patient with dailey ulcerative colitis diagnosed by colonoscopy 06/2023 Now status post subtotal colectomy with only rectal stump remaining and has ileostomy No treatment at this point but will need continued surveillance for colorectal CA of the rectal stump Will need follow-up with GI as an outpatient (7) Acute kidney injury: Plan: First noted 07/25/23 ATN suspected as cause of DERIK OSWALDO from CT scans also possible Ultimately developed volume overload in setting of his DERIK Never had renal recovery dialysis started on 08/12 continues on HD schedule Permcath/Tunneled HD line placed 09/01/2023 appreciate nephrology assistance (8) Severe protein-calorie malnutrition: Plan: appetite remains poor caloric intake is very poor 12kg weight loss since May remains cachectic remains on PPN for now will d/w GI the possibility of obtaining EGD to look at stomach given ongoing abnormalities of stomach on CT but defer for now since the pancreas may have been the cause of his recent symptoms will patient ultimately need a J-tube or other tube for nutritional purposes if his PO intake does not improve and remain stable? (9) Acute hypoxic respiratory failure: Plan: 2nd volume overload resolved (10) Acute blood loss anemia: Plan: transfused total 5 units PRBCs this admission B12, folate, iron studies normal TSH mildly elevated and free T4 mildly low - would repeat in a week or two H/H stable (11) Hard of hearing: Plan: severe hearing impairment Supportive care, wears hearing device (12) Ileostomy in place: Plan: functioning well radiographically the ileostomy appears wnl he is having pure liquid stool from the ostomy -- checked a c diff --> negative added pancrease for chronic pancreatitis stool output remains high -- >1000cc add questran 4gm daily (13) Hypertension: Plan: cont amlodipine 5mg daily (14) Abdominal fluid collection: Plan: Per CT a/p on 09/14/23 - "There is continued decreased size of the perisplenic fluid collection approximate 6.3 x 1.2 cm. This measured 8.3 x 2.4 cm on the August 2023 study." I spoke with ID today -- they advise to cont IV antibiotics & antifungals BEYOND 09/19 and repeat imaging in about 2 weeks. (15) Vitamin D deficiency: Plan: 25-OH vit D level = 18 started vit D 5000 IU daily (16) Mood disorder: Plan: is on remeron 15mg HS however, he has widely fluctuating mood swings, thoughts of dying, etc he reports having seen psych many times over the years consider a mood stabilizer such as lamictal or depakote; former likely the better choice consider formal psych consult Plan Previous attending physicians had extensive discussions with the skilled nursing system - dialysis needs to be arranged at [facility]. Discussion also held with physicians at [facility] system which is more of a [facility] type convalescent facility. At this time they are reluctant to take the patient in transfer following his prolonged admission here. PT/OT both advising rehab post-d/c --> [facility] would be best given his medical complexity Admission and Anticipated Discharge Date Admission Date: June 28, 2023 Subjective overnight patient refused his IV antibiotic therapy received message around breakfast time from nursing staff that patient would only take the antibiotics if he was allowed to eat normal food when I saw the patient he was indeed eating a low fat diet minimal abdominal discomfort with eating no nausea or emesis expressed that he is depressed, thinks about dying and just giving up he states he is tired of living this way he has struggled with mental health issues & depression his entire life I offered psych consultation but he declined Review of Systems Review of Systems: gen - no fevers or chills cv - no chest pain pulm - no dyspnea Physical Exam Physical Exam: gen - cachectic, awake, alert, NAD neck - no JVD abd - ileostomy in place R abdomen, stoma clean, stool is pure liquid ext - no edema, pulses 2+ b/l neuro - muscle wasting of all 4 limbs vascular - permcath present right upper chest - clean psych - a/o x 3, anxious, agitated, depressed Results & Data Results & Data Vital Signs (Past 12 Hours) Vital Signs Temp Pulse Pulse Pulse Pulse Pulse Resp 09/17/23 21:24 37.2 C 87 18 09/17/23 15:53 36.9 C 92 H 16 09/17/23 12:15 36.4 C L 69 69 09/17/23 12:08 36.4 C L 79 09/17/23 12:00 81 BP BP Pulse Ox O2 Del Method 09/17/23 21:24 158/84 H 98 Room Air 09/17/23 15:53 146/87 H 98 Room Air 09/17/23 12:15 111/81 09/17/23 12:08 111/81 09/17/23 12:00 76/52 L Laboratory Results Laboratory Results - last 24 hr 09/17/23 06:50 Sodium 137 Potassium 4.2 Chloride 106 Carbon Dioxide 23 Anion Gap 8 BUN 56 H Creatinine 2.24 H D Est Cr Clr Drug Dosing 24.8 Est GFR ( Amer) 37.1 Est GFR (Non-Af Amer) 32.0 BUN/Creatinine Ratio 25.0 H Glucose 109 H Calcium 8.9 Phosphorus 4.0 Magnesium 2.0 Lipase 156 H PG Care Time/CCT Total # of Minutes Spent Total Time Spent with Patient: Total time spent is greater than 50% in coordination of care (as documented) at patient's floor/unit and/or counseling patient: Coding Level of Care Code 01838 SUB INP/OBS CARE 3/50MIN Diagnoses Encephalopathy G93.40 Abdominal pain R10.9 Chronic [address]itis K86.[address] scan, stomach R93.3 Perforated abdominal viscus R19.8 Ulcerative pancolitis with abscess K51.014 Ulcerative colitis location: ulcerative pancolitis Digestive disease complication type: with abscess Acute kidney injury N17.9 Severe protein-calorie malnutrition E43 Acute hypoxic respiratory failure J96.01 Acute blood loss anemia D62 Bilateral hearing loss, unspecified hearing loss type H91.93 Hearing loss type: unspecified Laterality: bilateral Ileostomy in place Z93.2 Hypertension I10 Abdominal fluid collection R18.8 Vitamin D deficiency E55.9 Mood disorder F39 (6) Ulcerative colitis Ulcerative colitis location: ulcerative pancolitis Digestive disease complication type: with abscess Qualified Code(s): K51.014 - Ulcerative (chronic) pancolitis with abscess (11) Hard of hearing Hearing loss type: unspecified Laterality: bilateral Qualified Code(s): H91.93 - Unspecified hearing loss, bilateral
[2023-09-18] MEDS: PIPERACILLIN/TAZOBACTAM 4.5 GM in DEXTROSE 5% MINI-B 100 ML IV SCH ×2 (04:15→16:23)
[2023-09-18] MEDS: amLODIPine BESYLATE 5 MG TAB PO SCH (08:23)
[2023-09-18] MEDS: SUCRALFATE 1 GM/10 ML UDC PO SCH ×4 (08:23→21:57)
[2023-09-18] MEDS: CHOLECALCIFEROL 5,000 UNITS 125 MCG TAB PO SCH (08:24)
[2023-09-18] MEDS: PANCREAZE (LIPASE 10,500U) CAP PO SCH ×3 (08:24→17:28)
[2023-09-18] MEDS: CHOLESTYRAMINE LIGHT 4 GM PKT PO SCH (08:25)
[2023-09-18] MEDS: MICONAZOLE NITRATE POWDER 85 GM EXT SCH ×2 (08:26→21:57)
[2023-09-18] MEDS: THIAMINE HCL 100 MG TAB PO SCH (08:26)
--- NOTE | 2023-09-18 08:38 | Nephrology Progress Note ---
Date of Service September 18, 2023 Assessment & Plan (1) Acute kidney injury: Plan: * ATN due to sepsis, contrast induced nephropathy. 07/27/23 renal US and 08/09/[address] were negative for obstruction. Baseline Cr ~ 1.0 * 1st HD 08/12/23 via temporary femoral catheter * R IJ TCC placed 08/16/[address] Kamara * New R IJ TCC placed 09/01/23 followed by HD. No complications * Appears clinically euvolemic. AM labs are pending. No acute indication for HD today. Will monitor UO, kidney function over weekend (2) Intra-abdominal abscess: Plan: * Remains on daptomycin, Zosyn, and fluconazole * 08/27/[address] - thickening of small bowel suggestive of enteritis, 1.9 cm area within the wall of the stomach concerning for intramural abscess * 08/30/23 ID recommendations: Continue current antibiotics through 09/19/23. Repeat CT A/P 1st week of Sep 2023. If increasing fluid collections, consult IR for drain replacement * Remains on JAY but is tolerating small amounts of oral diet (3) Hypertension: Plan: * BP is acceptable. Remains on amlodipine therapy Admission and Anticipated Discharge Date Admission Date: June 28, 2023 Subjective Mr. Deleon was evaluated in his hospital room this morning. He reports persistent midepigastric abdominal discomfort. Food diary shows that he ate egg whites and one piece of toast this am. He remains on PPN therapy Review of Systems Constitutional: no fever Eyes: no problem reported Ear, Nose, Mouth, Throat: no problem reported Respiratory: no cough and no dyspnea Cardiovascular: no chest pain Gastrointestinal: + abdominal pain; no nausea, no vomiting and no diarrhea/loose stools Physical Exam Constitutional: + cachectic; not in distress Eyes: PERRL, conjunctivae normal, anicteric sclerae ENMT: external ear and nose normal, oropharynx normal Neck: trachea midline, no thyromegaly Respiratory: normal respiratory effort, lungs clear to auscultation Auscultation: lungs clear to auscultation bilaterally and + rales (at bases bilaterally) Cardiovascular: RRR, no murmur, no edema Extremities: no edema Gastrointestinal (Abdomen): Inspection/Auscultation: normal bowel sounds Neurologic: awake TUSCARORA Results & Data Vital Signs (Past 12 Hours) Vital Signs Temp Pulse Resp BP BP Pulse Ox O2 Del Method 09/18/23 08:19 37.2 C 97 H 18 153/90 H 97 Room Air 09/17/23 21:24 37.2 C 87 18 158/84 H 98 Room Air Laboratory Results Laboratory Results - last 24 hr 09/18/23 09:26 Sodium Pending Potassium Pending Chloride Pending Carbon Dioxide Pending Anion Gap Pending BUN Pending Creatinine Pending Est Cr Clr Drug Dosing Pending Est GFR ( Amer) Pending Est GFR (Non-Af Amer) Pending BUN/Creatinine Ratio Pending Glucose Pending Calcium Pending Phosphorus Pending Magnesium Pending PG Care Time/CCT Total # of Minutes Spent Total Time Spent with Patient: Total time spent is greater than 50% in coordination of care (as documented) at patient's floor/unit and/or counseling patient: Coding Level of Care Code 21619 SUB INP/OBS CARE 3/50MIN Diagnoses Acute kidney injury N17.9 Intra-abdominal abscess K65.1 Hypertension I10
[2023-09-18 10:06] LABS: BUN Creatinine Ratio 27.2 (10-20); Calcium 8.6 mg/dl (8.6-10.3); Creatinine Clr Calc Pharmacy 28.5 ml/min; Est GFR (African American) 43.9 ml/min; Est GFR (Non-African American) 37.9 ml/min; Magnesium 1.7 mg/dl (1.7-2.4); Phosphorus 1.3 mg/dl (2.5-4.9); Potassium 4.3 mmol/L (3.5-5.1)
[2023-09-18] MEDS ORDERED: SODIUM PHOSPHATE 3 MMOL/1 ML INFUSION IV STA (12:01)
[2023-09-18] MEDS ORDERED: SODIUM PHOSPHATE 12 MMOL in SODIUM CHLORIDE 0.9% 250 ML IV ONE (12:30)
[2023-09-18] MEDS: PANTOprazole 40 MG TAB PO SCH ×2 (15:01→21:57)
[2023-09-18] MEDS ORDERED: [UNRECOGNIZED DRUG - OTHER] IV SCH (16:00)
[2023-09-18] MEDS ORDERED: PERIPHERAL TPN IV SCH (16:00)
[2023-09-18] MEDS ORDERED: PANCREAZE (LIPASE 10,500U) CAP PO PRN (19:22)
--- NOTE | 2023-09-18 19:24 | Hospitalist Progress Note ---
Date of Service September 18, 2023 Assessment & Plan (1) Encephalopathy: Plan: resolved most recent confusion likely toxic from meds (marinol, reglan) - both stopped 09/15/23 has had encephalopathy off/on throughout the stay for other multifactorial reasons - hospital delirium, insomnia, thiamine deficiency/Wernicke's encephalopathy, renal failure, etc. ativan made patient worse - it has been stopped Head CT x 2 both negative this admission s/p thigh-dose thiamine earlier in the stay; now on maintenance thiamine 200 mg daily was on antipsychotics earlier in the stay (seroquel, zyprexa) but these were stopped ~09/07/23 as his confusion had improved ordered haldol 2.5mg IM q8h prn agitation/delirium consider zyprex ODT 2.5mg HS for mood stabilization and confusion, if needed (2) Abdominal pain: Plan: He is nearly 3 months post-op from his extensive exploratory laparotomy surgery performed on 06/28/23. He should not have pain from his original surgery at this point. Scar tissue can cause intermittent discomforts but not ongoing abdominal pain. Pain could be gastric in etiology given the ongoing gastric wall thickening seen on CT. CT was repeated 09/14/23. Could be from #3. Could be acute pancreatitis as prior lipase levels were normal and on 09/15/23 it was 209. Trial of creon w/ meals given #[address]. Of note - his pain coupled with anorexia has led to ongoing weight loss and failure to thrive. Tolerated clears. Tolerated full liquids. Advanced to low fat. Tolerating thus far. Pain improved. Cont PPN but cont to hold lipids. (3) Chronic pancreatitis: Plan: as seen on CT abd/pelvis (calcifications of pancreas seen) started creon 2 capsules with meals, 1 with snacks prn can't exclude component of acute pancreatitis as prior lipase levels were normal and now it amie to peak of 209 repeat lipase am abd symptoms overnight improved (4) Abnormal CT scan, stomach: Plan: * perisplenic fluid collection continues to decrease in size * gastric wall continues to appear abnormal * pancreatic calcifications noted c/w chronic pancreatitis see discussion above consider GI consult for EGD given his complaints and abnormal gastric wall on imaging (5) Perforated abdominal viscus: Plan: Presented with free air and signs of intra-abdominal abscess/fluid collection formation on 06/28/23. This was in the setting of recent colonoscopy on 06/15/23 which showed signs of severe, pancolitis. Biopsies were c/w Ulcerative colitis. Went to OR on 06/28/23 with subtotal colon resection with rectal stump remaining along with ileostomy formation. Three areas of perforation were identified, abscess and feculent material seen. Pseudomonas, MSSA, and Enterococcus faecium as well as Mariely albicans isolated from intra-op cultures. Original plan was to continue daptomycin, Zosyn, and renally adjusted fluconazole through September 19, 2023. However, I spoke with ID 09/17 and they advise to continue the above antibiotics beyond 09/19 as the fluid collection has not resolved of note - switched cefepime to IV Zosyn 08/10 due to concern for cefepime induced neurotoxicity. Discontinued metronidazole after completing course on 08/10 (6) Ulcerative colitis: Plan: Patient with dailey ulcerative colitis diagnosed by colonoscopy 06/2023 Now status post subtotal colectomy with only rectal stump remaining and has ileostomy No treatment at this point but will need continued surveillance for colorectal CA of the rectal stump Will need follow-up with GI as an outpatient (7) Acute kidney injury: Plan: First noted 07/25/23 ATN suspected as cause of DERIK OSWALDO from CT scans also possible Ultimately developed volume overload in setting of his DERIK Never had renal recovery dialysis started on 08/12 continues on HD [facility] schedule Permcath/Tunneled HD line placed 09/01/2023 appreciate nephrology assistance (8) Severe protein-calorie malnutrition: Plan: appetite remains poor caloric intake is very poor 12kg weight loss since May remains cachectic remains on PPN for now will d/w GI the possibility of obtaining EGD to look at stomach given ongoing abnormalities of stomach on CT but defer for now since the pancreas may have been the cause of his recent symptoms will patient ultimately need a J-tube or other tube for nutritional purposes if his PO intake does not improve and remain stable? (9) Acute hypoxic respiratory failure: Plan: 2nd volume overload resolved (10) Acute blood loss anemia: Plan: transfused total 5 units PRBCs this admission B12, folate, iron studies normal TSH mildly elevated and free T4 mildly low - would repeat in a week or two H/H stable (11) Hard of hearing: Plan: severe hearing impairment Supportive care, wears hearing device (12) Ileostomy in place: Plan: functioning well radiographically the ileostomy appears wnl he is having pure liquid stool from the ostomy -- checked a c diff --> negative added pancrease for chronic pancreatitis stool output remains high -- >1000cc added questran 4gm daily but he refused today's dose will impress upon him the importance of this if he won't take it consider loperamide 1-2x's daily (13) Hypertension: Plan: cont amlodipine 5mg daily (14) Abdominal fluid collection: Plan: Per CT a/p on 09/14/23 - "There is continued decreased size of the perisplenic fluid collection approximate 6.3 x 1.2 cm. This measured 8.3 x 2.4 cm on the August 2023 study." I spoke with ID 09/17/23 -- they advise to cont IV antibiotics & antifungals BEYOND 09/19 and repeat imaging in about 2 weeks. (15) Vitamin D deficiency: Plan: 25-OH vit D level = 18 started vit D 5000 IU daily (16) Mood disorder: Plan: is on remeron 15mg HS however, he has widely fluctuating mood swings, thoughts of dying, etc he reports having seen psych many times over the years consider a mood stabilizer such as lamictal or depakote; former likely the better choice or consider low-dose antipsychotic such as zyprexa ODT (tolerated such in the past) consider formal psych consult (17) Hypophosphatemia: Plan: NaPhos 12mmol x 1 IV Phos to be added back to PPN repeat phos level am Plan Previous attending physicians had extensive discussions with the group home system - dialysis needs to be arranged at [facility]. Discussion also held with physicians at [facility] system which is more of a [facility] type convalescent facility. At this time they are reluctant to take the patient in transfer following his prolonged admission here. PT/OT both advising rehab post-d/c --> [facility] would be best given his medical complexity Admission and Anticipated Discharge Date Admission Date: June 28, 2023 Subjective patient was sleeping upon my arrival easily awoke was in a better mood today offered no physical complaints denied any abd pain (except mild discomfort with eating - gets full easily), nausea or emesis Review of Systems Review of Systems: cv - no chest pain pulm - no dyspnea GI - stool in ostomy still quite liquid gen - no fevers Physical Exam Physical Exam: gen - cachectic, awake, alert, NAD neck - no JVD mouth - MMM, no lesions, no thrush heart - RRR, s1 s2, no murmur lungs - decreased BS bases ow CTA b/l abd - ileostomy in place R abdomen, stoma clean, stool is pure liquid; BS+, NT, ND, soft ext - no edema, pulses 2+ b/l neuro - muscle wasting of all 4 limbs vascular - permcath present right upper chest - clean psych - a/o x 3 Results & Data Results & Data Vital Signs (Past 12 Hours) Vital Signs Temp Pulse Pulse Resp BP Pulse Ox O2 Del Method 09/18/23 16:00 37.2 C 89 20 144/76 H 95 Room Air 09/18/23 08:30 Room Air 09/18/23 08:19 37.2 C 97 H 18 153/90 H 97 Room Air Laboratory Results Laboratory Results - last 24 hr 09/18/23 09:26 Sodium 137 Potassium 4.3 Chloride 107 Carbon Dioxide 21 Anion Gap 9 BUN 53 H Creatinine 1.95 H Est Cr Clr Drug Dosing 28.5 Est GFR ( Amer) 43.9 Est GFR (Non-Af Amer) 37.9 BUN/Creatinine Ratio 27.2 H Glucose 128 H Calcium 8.6 Phosphorus 1.3 L* D Magnesium 1.7 PG Care Time/CCT Total # of Minutes Spent Total Time Spent with Patient: Total time spent is greater than 50% in coordination of care (as documented) at patient's floor/unit and/or counseling patient: Coding Level of Care Code 35219 SUB INP/OBS CARE 2/35MIN Diagnoses Encephalopathy G93.40 Abdominal pain R10.9 Chronic pancreatitis K86.[address] scan, stomach R93.3 Perforated abdominal viscus R19.8 Ulcerative pancolitis with abscess K51.014 Digestive disease complication type: with abscess Ulcerative colitis location: ulcerative pancolitis Acute kidney injury N17.9 Severe protein-calorie malnutrition E43 Acute hypoxic respiratory failure J96.01 Acute blood loss anemia D62 Bilateral hearing loss, unspecified hearing loss type H91.93 Hearing loss type: unspecified Laterality: bilateral Ileostomy in place Z93.2 Hypertension I10 Abdominal fluid collection R18.8 Vitamin D deficiency E55.9 Mood disorder F39 Hypophosphatemia E83.39 (6) Ulcerative colitis Digestive disease complication type: with abscess Ulcerative colitis location: ulcerative pancolitis Qualified Code(s): K51.014 - Ulcerative (chronic) pancolitis with abscess (11) Hard of hearing Hearing loss type: unspecified Laterality: bilateral Qualified Code(s): H91.93 - Unspecified hearing loss, bilateral
[2023-09-18] MEDS: FLUCONAZOLE 200 MG/100 ML BAG IV SCH (19:41)
[2023-09-18] MEDS: DAPTOmycin 600 MG in SYRINGE 0 ML IV SCH (19:41)
[2023-09-18] MEDS: MIRTAZAPINE TAB 15 MG TAB PO SCH (21:57)
[2023-09-19] MEDS: PIPERACILLIN/TAZOBACTAM 4.5 GM in DEXTROSE 5% MINI-B 100 ML IV SCH ×2 (04:50→16:56)
[2023-09-19 07:14] LABS: Calcium 8.6 mg/dl (8.6-10.3); Magnesium 1.8 mg/dl (1.7-2.4); Potassium 4.8 mmol/L (3.5-5.1)
[2023-09-19 07:21] LABS: BUN Creatinine Ratio 31.6 (10-20); Creatinine Clr Calc Pharmacy 24.7 ml/min; Est GFR (African American) 39.7 ml/min; Est GFR (Non-African American) 34.2 ml/min; Phosphorus 2.7 mg/dl (2.5-4.9)
[2023-09-19] MEDS: amLODIPine BESYLATE 5 MG TAB PO SCH (09:15)
[2023-09-19] MEDS: CHOLECALCIFEROL 5,000 UNITS 125 MCG TAB PO SCH (09:15)
--- NOTE | 2023-09-19 09:15 | Nephrology Progress Note ---
Date of Service September 19, 2023 Assessment & Plan (1) Acute kidney injury: Plan: * ATN due to sepsis, contrast induced nephropathy. 07/27/23 renal US and 08/09/[address] were negative for obstruction. Baseline Cr ~ 1.0 * 1st HD 08/12/23 via temporary femoral catheter * R IJ TCC placed 08/16/[address] Kamara * New R IJ TCC placed 09/01/23 followed by HD. No complications * Appears clinically euvolemic. Patient is nonoliguric. UO was 1500 cc last 24 hours. Rate of increase in Cr appears to be slowing. Patient's renal function may be stabilizing. No acute indication for HD today. Will plan next HD for am with close monitoring of UO, kidney function (2) Intra-abdominal abscess: Plan: * Remains on daptomycin, Zosyn, and fluconazole * 08/27/[address] - thickening of small bowel suggestive of enteritis, 1.9 cm area within the wall of the stomach concerning for intramural abscess * Primary service has discussed POC w/ ID. Given persistent abdominal fluid collections, antibiotics are to be continued * Remains on JAY but is tolerating small amounts of oral diet (3) Hypertension: Plan: * BP is acceptable. Remains on amlodipine therapy Admission and Anticipated Discharge Date Admission Date: June 28, 2023 Subjective Mr. Deleon was evaluated in his hospital room this morning. He reports abdominal discomfort is mildly improved. Food diary shows that he ate his entire breakfast this am. He remains on PPN therapy Review of Systems Constitutional: no fever Eyes: no problem reported Ear, Nose, Mouth, Throat: no problem reported Respiratory: no cough and no dyspnea Cardiovascular: no chest pain Gastrointestinal: no nausea, no vomiting and no diarrhea/loose stools Physical Exam Constitutional: + cachectic; not in distress Eyes: PERRL, conjunctivae normal, anicteric sclerae ENMT: external ear and nose normal, oropharynx normal Neck: trachea midline, no thyromegaly Respiratory: normal respiratory effort, lungs clear to auscultation Auscultation: lungs clear to auscultation bilaterally and + rales (at bases bilaterally) Cardiovascular: RRR, no murmur, no edema Extremities: no edema Gastrointestinal (Abdomen): Inspection/Auscultation: normal bowel sounds Neurologic: awake Results & Data Vital Signs (Past 12 Hours) Vital Signs Temp Pulse Resp BP Pulse Ox O2 Del Method 09/19/23 08:25 36.5 C 85 16 157/81 H 98 Room Air 09/18/23 23:00 36.5 C 92 H 18 157/85 H 98 Room Air Laboratory Results Laboratory Results - last 24 hr 09/18/23 09/19/23 09:26 06:33 Sodium 137 134 L Potassium 4.3 4.8 Chloride 107 107 Carbon Dioxide 21 17 L Anion Gap 9 10 BUN 53 H 67 H Creatinine 1.95 H 2.12 H Est Cr Clr Drug Dosing 28.5 24.7 Est GFR ( Amer) 43.9 39.7 Est GFR (Non-Af Amer) 37.9 34.2 BUN/Creatinine Ratio 27.2 H 31.6 H Glucose 128 H 98 Calcium 8.6 8.6 Phosphorus 1.3 L* D 2.7 D Magnesium 1.7 1.8 Lipase 135 H PG Care Time/CCT Total # of Minutes Spent Total Time Spent with Patient: Total time spent is greater than 50% in coordination of care (as documented) at patient's floor/unit and/or counseling patient: Coding Level of Care Code 42938 SUB INP/OBS CARE 3/50MIN Diagnoses Acute kidney injury N17.9 Intra-abdominal abscess K65.1 Hypertension I10
[2023-09-19] MEDS: THIAMINE HCL 100 MG TAB PO SCH (09:16)
[2023-09-19] MEDS: PANTOprazole 40 MG TAB PO SCH ×2 (09:16→20:38)
[2023-09-19] MEDS: PANCREAZE (LIPASE 10,500U) CAP PO SCH ×3 (09:16→18:36)
[2023-09-19] MEDS: CHOLESTYRAMINE LIGHT 4 GM PKT PO SCH (09:17)
[2023-09-19] MEDS: SUCRALFATE 1 GM/10 ML UDC PO SCH ×4 (09:18→20:38)
[2023-09-19] MEDS: MICONAZOLE NITRATE POWDER 85 GM EXT SCH ×2 (09:19→21:00)
[2023-09-19] MEDS ORDERED: PERIPHERAL TPN IV SCH (16:00)
[2023-09-19] MEDS ORDERED: [UNRECOGNIZED DRUG - OTHER] IV SCH (16:00)
[2023-09-19] MEDS: FLUCONAZOLE 200 MG/100 ML BAG IV SCH (20:38)
[2023-09-19] MEDS: MIRTAZAPINE TAB 15 MG TAB PO SCH (20:38)
--- NOTE | 2023-09-19 20:38 | Hospitalist Progress Note ---
Date of Service September 19, 2023 Assessment & Plan (1) Abdominal pain: Plan: He is nearly 3 months post-op from his extensive exploratory laparotomy surgery performed on 06/28/23. He continues with mild abdominal pain often with eating. He often feels full in his abdomen as well. Pain could be gastric in etiology given the ongoing gastric wall thickening seen on CT. (CT was repeated 09/14/23). Could be from #3. Could be acute pancreatitis as prior lipase levels were normal and on 09/15/23 it was 209. Trial of creon w/ meals given #[address] This seems to have helped his pain. Of note - his pain coupled with anorexia has led to ongoing weight loss and failure to thrive. Tolerating low fat. Pain improved. Cont PPN but cont to hold lipids due to elevated lipase. I spoke with on-call GI today, Dr Flores. Inquired with him about pursuing endoscopy given his ongoing symptoms as well as abnormally appearing stomach on CT scans. He recommended reaching out to [facility] on Wednesday to coordinate EGD. (2) Encephalopathy: Plan: resolved most recent confusion likely toxic from meds (marinol, reglan) - both stopped 09/15/23 has had encephalopathy off/on throughout the stay for other multifactorial reasons - hospital delirium, insomnia, thiamine deficiency/Wernicke's encephalopathy, renal failure, etc. ativan made patient worse - it has been stopped Head CT x 2 both negative this admission s/p thigh-dose thiamine earlier in the stay; now on maintenance thiamine 200 mg daily was on antipsychotics earlier in the stay (seroquel, zyprexa) but these were stopped ~09/07/23 as his confusion had improved ordered haldol 2.5mg IM q8h prn agitation/delirium consider zyprex ODT 2.5mg HS for mood stabilization and confusion, if needed (3) Chronic pancreatitis: Plan: as seen on CT abd/pelvis (calcifications of pancreas seen) started creon 2 capsules with meals, 1 with snacks prn can't exclude component of acute pancreatitis as prior lipase levels were normal and now it amie to peak of 209 repeat lipase today stable (4) Abnormal CT scan, stomach: Plan: * perisplenic fluid collection continues to decrease in size * gastric wall continues to appear abnormal * pancreatic calcifications noted c/w chronic pancreatitis see discussion above consider GI consult for EGD given his complaints and abnormal gastric wall on imaging (5) Perforated abdominal viscus: Plan: Presented with free air and signs of intra-abdominal abscess/fluid collection formation on 06/28/23. This was in the setting of recent colonoscopy on 06/15/23 which showed signs of severe, pancolitis. Biopsies were c/w Ulcerative colitis. Went to OR on 06/28/23 with subtotal colon resection with rectal stump remaining along with ileostomy formation. Three areas of perforation were identified, abscess and feculent material seen. Pseudomonas, MSSA, and Enterococcus faecium as well as Mariely albicans isolated from intra-op cultures. Original plan was to continue daptomycin, Zosyn, and renally adjusted fluconazole through September 19, 2023. However, I spoke with ID 09/17 and they advise to continue the above antibiotics beyond 09/19 as the fluid collection has not resolved of note - switched cefepime to IV Zosyn 08/10 due to concern for cefepime induced neurotoxicity. Discontinued metronidazole after completing course on 08/10 (6) Ulcerative colitis: Plan: Patient with dailey ulcerative colitis diagnosed by colonoscopy 06/2023 Now status post subtotal colectomy with only rectal stump remaining and has ileostomy No treatment at this point but will need continued surveillance for colorectal CA of the rectal stump Will need follow-up with GI as an outpatient (7) Acute kidney injury: Plan: First noted 07/25/23 ATN suspected as cause of DERIK OSWALDO from CT scans also possible Ultimately developed volume overload in setting of his DERIK Never had renal recovery dialysis started on 08/12 continues on HD [facility] schedule Permcath/Tunneled HD line placed 09/01/2023 appreciate nephrology assistance (8) Severe protein-calorie malnutrition: Plan: appetite remains poor caloric intake is very poor 12kg weight loss since May remains cachectic remains on PPN for now will d/w GI the possibility of obtaining EGD to look at stomach given ongoing abnormalities of stomach on CT but defer for now since the pancreas may have been the cause of his recent symptoms (9) Acute hypoxic respiratory failure: Plan: 2nd volume overload resolved (10) Acute blood loss anemia: Plan: transfused total 5 units PRBCs this admission B12, folate, iron studies normal TSH mildly elevated and free T4 mildly low - would repeat in a week or two H/H stable (11) Hard of hearing: Plan: severe hearing impairment Supportive care, wears hearing device (12) Ileostomy in place: Plan: functioning well radiographically the ileostomy appears wnl he is having pure liquid stool from the ostomy -- checked a c diff --> negative added pancrease for chronic pancreatitis stool output has improved; now down to <750cc added questran 4gm daily but he is refusing such if he won't take it consider loperamide 1-2x's daily (13) Hypertension: Plan: cont amlodipine 5mg daily (14) Abdominal fluid collection: Plan: Per CT a/p on 09/14/23 - "There is continued decreased size of the perisplenic fluid collection approximate 6.3 x 1.2 cm. This measured 8.3 x 2.4 cm on the August 2023 study." I spoke with ID 09/17/23 -- they advise to cont IV antibiotics & antifungals BEYOND 09/19 and repeat imaging in about 2 weeks. (15) Vitamin D deficiency: Plan: 25-OH vit D level = 18 cont vit D 5000 IU daily (16) Mood disorder: Plan: is on remeron 15mg HS however, he has widely fluctuating mood swings, thoughts of dying, etc he reports having seen psych many times over the years consider a mood stabilizer such as lamictal or depakote; former likely the better choice or consider low-dose antipsychotic such as zyprexa ODT (tolerated such in the past) consider formal psych consult (17) Hypophosphatemia: Plan: NaPhos 12mmol x 1 IV Phos to be added back to PPN repeat phos level today wnl (18) Left arm swelling: Plan: focal, palpable cord over left upper arm suspicious for superficial thrombophlebitis will obtain doppler - r/o DVT if thrombophlebitis is confirmed perform heat, elevation, etc Plan Previous attending physicians had extensive discussions with the [facility] - dialysis needs to be arranged at [facility]. Discussion also held with physicians at [facility] system which is more of a jail type convalescent facility. At this time they are reluctant to take the patient in transfer following his prolonged admission here. PT/OT both advising rehab post-d/c --> [facility] would be best given his medical complexity Admission and Anticipated Discharge Date Admission Date: June 28, 2023 Subjective patient reports eating all of his breakfast with minimal discomfort and no N/V ate lunch (chicken nuggets) ate dinner this evening abdominal pain is near his ileostomy site denies any new complaints Review of Systems Review of Systems: gen - feels good today cv - no chest pain pulm - no dyspnea or cough - voiding w/o difficulty Physical Exam Physical Exam: gen - cachectic, awake, alert, NAD - best he has looked all week neck - no JVD mouth - MMM, no lesions, no thrush heart - RRR, s1 s2, no murmur lungs - CTA b/l abd - ileostomy in place R abdomen, stoma clean, stool is pure liquid; BS+, NT, ND, soft ext - localized edema of ALICIA with palpable cord over upper arm; pulses 2+ b/l neuro - muscle wasting of all 4 limbs vascular - permcath present right upper chest - clean; picc line RUE clean psych - a/o x 3 Results & Data Results & Data Vital Signs (Past 12 Hours) Vital Signs Temp Pulse Resp BP Pulse Ox O2 Del Method 09/19/23 14:31 36.8 C 79 16 159/84 H 99 Room Air 09/19/23 09:50 Room Air Laboratory Results Laboratory Results - last 24 hr 09/19/23 06:33 Sodium 134 L Potassium 4.8 Chloride 107 Carbon Dioxide 17 L Anion Gap 10 BUN 67 H Creatinine 2.12 H Est Cr Clr Drug Dosing 24.7 Est GFR ( Amer) 39.7 Est GFR (Non-Af Amer) 34.2 BUN/Creatinine Ratio 31.6 H Glucose 98 Calcium 8.6 Phosphorus 2.7 D Magnesium 1.8 Lipase 135 H PG Care Time/CCT Total # of Minutes Spent Total Time Spent with Patient: Total time spent is greater than 50% in coordination of care (as documented) at patient's floor/unit and/or counseling patient: Coding Level of Care Code 97089 SUB INP/OBS CARE 2/35MIN Diagnoses Abdominal pain R10.9 Encephalopathy G93.40 Chronic pancreatitis K86.[address] scan, stomach R93.3 Perforated abdominal viscus R19.8 Ulcerative pancolitis with abscess K51.014 Digestive disease complication type: with abscess Ulcerative colitis location: ulcerative pancolitis Acute kidney injury N17.9 Severe protein-calorie malnutrition E43 Acute hypoxic respiratory failure J96.01 Acute blood loss anemia D62 Bilateral hearing loss, unspecified hearing loss type H91.93 Hearing loss type: unspecified Laterality: bilateral Ileostomy in place Z93.2 Hypertension I10 Abdominal fluid collection R18.8 Vitamin D deficiency E55.9 Mood disorder F39 Hypophosphatemia E83.39 Left arm swelling M79.89 (6) Ulcerative colitis Digestive disease complication type: with abscess Ulcerative colitis location: ulcerative pancolitis Qualified Code(s): K51.014 - Ulcerative (chronic) pancolitis with abscess (11) Hard of hearing Hearing loss type: unspecified Laterality: bilateral Qualified Code(s): H91.93 - Unspecified hearing loss, bilateral
--- NOTE | 2023-09-20 00:58 | Ultrasound Report ---
Exam(s): US VENOUS LEFT UPPER EXTREMITY EXAM: US Duplex Left Upper Extremity Veins CLINICAL HISTORY: Reason for exam: superficial clot vs DVT LUE. TECHNIQUE: Real-time duplex ultrasound scan of the left upper extremity veins integrating B-mode two-dimensional vascular structure, Doppler spectral analysis, color flow Doppler imaging and compression. COMPARISON: None. FINDINGS: Deep veins: Unremarkable. No DVT in the internal jugular, subclavian, axillary, or brachial veins. The veins demonstrate normal color flow, are normally compressible, with normal phasic flow and/or augmentation response. There is nonspecific slow flow within the subclavian vein. Superficial veins: There is partial compressibility within the left basilic vein with partial color flow and internal echoes consistent with partially occlusive thrombus. There is absent compressibility within the left cephalic vein extending from mid humerus to the mid forearm with absent flow consistent with Mondragon occlusive thrombus. Soft tissues: No acute findings. IMPRESSION: 1. No ultrasonographic evidence of deep venous thrombosis involving the left upper extremity. 2. Superficial thrombosis of the basilic and cephalic vein as described. 3. Nonspecific slow flow through the subclavian vein with no thrombus. Electronically signed by: Lluvia Agarwal MD 09/20/23 00:57 AM
[2023-09-20] MEDS ORDERED: HEPARIN SOD (PORCINE) 1000 UNIT/ML IV SCH (07:00)
[2023-09-20] MEDS ORDERED: SODIUM CHLORIDE 0.9% 1,000 ML IV PRN (07:00)
[2023-09-20] MEDS ORDERED: HEPARIN SOD (PORCINE) 1000 UNIT/ML IV ONE (07:00)
--- NOTE | 2023-09-20 08:50 | Nephrology Progress Note ---
Date of Service September 20, 2023 Assessment & Plan (1) Acute kidney injury: Plan: * ATN due to sepsis, contrast induced nephropathy. 07/27/23 renal US and 08/09/[address] were negative for obstruction. Baseline Cr ~ 1.0 * 1st HD 08/12/23 via temporary femoral catheter * R IJ TCC placed 08/16/[address] Kamara * New R IJ TCC placed 09/01/23 followed by HD. No complications * Appears clinically euvolemic. Patient is nonoliguric. UO was 1895 cc last 24 hours. Labs this am are pending. Will continue to monitor for renal recovery. Will provide HD for correction of metabolic acidosis and azotemia (2) Intra-abdominal abscess: Plan: * Remains on daptomycin, Zosyn, and fluconazole * 08/27/[address] - thickening of small bowel suggestive of enteritis, 1.9 cm area within the wall of the stomach concerning for intramural abscess * Primary service has discussed POC w/ ID. Given persistent abdominal fluid collections, antibiotics are to be continued * Remains on JAY but is tolerating small amounts of oral diet (3) Hypertension: Plan: * BP is acceptable. Remains on amlodipine therapy Admission and Anticipated Discharge Date Admission Date: June 28, 2023 Subjective Mr. Deleon was evaluated in his hospital room this morning. He voiced no new medical concerns. He remains on PPN therapy. Review of Systems Constitutional: no fever Eyes: no problem reported Ear, Nose, Mouth, Throat: no problem reported Respiratory: no cough and no dyspnea Cardiovascular: no chest pain Gastrointestinal: no nausea, no vomiting and no diarrhea/loose stools Physical Exam Constitutional: + cachectic; not in distress Eyes: PERRL, conjunctivae normal, anicteric sclerae ENMT: external ear and nose normal, oropharynx normal Neck: trachea midline, no thyromegaly Respiratory: normal respiratory effort, lungs clear to auscultation Cardiovascular: RRR, no murmur, no edema Rate/Rhythm: regular rate and regular rhythm Extremities: no edema Gastrointestinal (Abdomen): Inspection/Auscultation: normal bowel sounds Neurologic: awake Results & Data Vital Signs (Past 12 Hours) Vital Signs Temp Pulse Resp BP Pulse Ox O2 Del Method 09/20/23 07:17 36.5 C 83 15 166/91 H 99 Room Air 09/19/23 21:26 36.6 C 73 18 162/85 H 98 Room Air Laboratory Results PRP - pending PG Care Time/CCT Total # of Minutes Spent Total Time Spent with Patient: Total time spent is greater than 50% in coordination of care (as documented) at patient's floor/unit and/or counseling patient: Coding Level of Care Code 89114 SUB INP/OBS CARE 3/50MIN Diagnoses Acute kidney injury N17.9 Intra-abdominal abscess K65.1 Hypertension I10
--- NOTE | 2023-09-20 11:47 | Gastroenterology Progress Note ---
Date of Service September 20, 2023 Assessment & Plan (1) Abnormal CT scan, stomach: Plan: I reviewed the case with Dr. Lindsey who advised on plan. - continue with protonix 40mg bid. - add pepcid 20mg bid. - continue carafate 1 gm qid. - would recommend outpatient EGD to further assess CT findings in stomach. no need for urgent EGD in light of the stomach wall findings were showing improvement on the most recent CT. The patient also seemed uncertain as to wheth er or not he would want to proceed with an EGD. Admission and Anticipated Discharge Date Admission Date: June 28, 2023 Supervising Physician Co-Signing Physician Notes I saw the patient and agree with the findings as documented by Adele Martel AC Subjective Patient is a 53 year old male with a history of ulcerative pancolitis s/p subtotal colectomy with ileostomy due to perforation with pneumoperitoneum and abscess formation/peritonitis and subsequent placement of wound vac for persistent intraabdominal abscess. GI was asked to re-evaluate the patient today due to issues with abdominal pain after eating and thickening of gastric wall on CT. He tells me that his symptoms are not with every meal. He tells me that it mostly seems to be happening if he gets his medications before he eats. His ostomy has some leaking at times but otherwise no issues. he denies melena or blood from ostomy. He denies any current issues with nausea, vomiting, heartburn, abdominal pain. Per patient and guards that were at bedside, he tolerated his breakfast this morning without issues. Patient was seen at dialysis. H Pylori stool 08/03/[address] 09/14/23 persistent gastric wall thickening that continues to improve from prior study done in August 2023. Physical Exam Physical Exam: Further physical exam was deferred due to the patient currently undergoing dialysis. Constitutional: WD/WN, vitals as above Respiratory: normal respiratory effort Psychiatric: Orientation: alert and oriented x 3 Results & Data Results & Data Vital Signs (Past 12 Hours) Vital Signs Temp Pulse Pulse Pulse Resp BP BP 09/20/23 11:30 93 H 143/99 H 09/20/23 11:00 92 H 149/100 H 09/20/23 10:30 84 152/99 H 09/20/23 10:00 89 149/101 H 09/20/23 09:30 76 140/91 01/08/24 09:15 75 155/96 H 09/20/23 09:10 98.1 F 80 09/20/23 07:17 97.7 F 83 15 166/91 H Pulse Ox O2 Del Method 09/20/23 11:30 09/20/23 11:00 09/20/23 10:30 09/20/23 10:00 09/20/23 09:30 09/20/23 09:15 09/20/23 09:10 09/20/23 07:17 99 Room Air PG Care Time/CCT Total # of Minutes Spent Total Time Spent with Patient: Total time spent is greater than 50% in coordination of care (as documented) at patient's floor/unit and/or counseling patient: Coding Level of Care Code 24842 SUB INP/OBS CARE 2/35MIN Diagnoses Abnormal CT scan, stomach R93.3 Time Spent (min) 45
[2023-09-20] MEDS: PANCREAZE (LIPASE 10,500U) CAP PO SCH ×3 (12:56→17:20)
[2023-09-20] MEDS: THIAMINE HCL 100 MG TAB PO SCH (12:57)
[2023-09-20] MEDS: amLODIPine BESYLATE 5 MG TAB PO SCH (12:57)
[2023-09-20] MEDS: CHOLESTYRAMINE LIGHT 4 GM PKT PO SCH (12:57)
[2023-09-20] MEDS: SUCRALFATE 1 GM/10 ML UDC PO SCH ×4 (12:57→20:07)
[2023-09-20] MEDS: PANTOprazole 40 MG TAB PO SCH ×2 (12:57→20:07)
[2023-09-20] MEDS: CHOLECALCIFEROL 5,000 UNITS 125 MCG TAB PO SCH (12:57)
[2023-09-20] MEDS: MICONAZOLE NITRATE POWDER 85 GM EXT SCH ×2 (12:58→20:07)
[2023-09-20] MEDS: FAMOTIDINE 20 MG TAB PO SCH (20:07)
[2023-09-20] MEDS: MIRTAZAPINE TAB 15 MG TAB PO SCH (20:07)
--- NOTE | 2023-09-20 21:35 | Hospitalist Progress Note ---
Date of Service September 20, 2023 Assessment & Plan (1) Abdominal pain: Plan: He is nearly 3 months post-op from his extensive exploratory laparotomy surgery performed on 06/28/23. He continues with mild abdominal pain often with eating. He often feels full in his abdomen as well. These symptoms have improved since starting Creon for chronic pancreatitis. Symptoms also improved with additional acid reduction. Pain could be gastric in etiology given the ongoing gastric wall thickening seen on CT. However, radiology does mention the gastric abnormality HAS improved over serial CTs. (CT was repeated 09/14/23). Could be from #3. Could be acute pancreatitis as prior lipase levels were normal and on 09/15/23 it was 209. Of note - his pain coupled with anorexia has led to weight loss and failure to thrive over the last couple of months. Tolerating low fat diet. Pt asks for low fat diet to be stopped; if lipase tomorrow is improved or normalized perhaps could consider stopping the low fat diet and allowing regular diet in judith. I spoke with Dr Lindsey this am from [facility] and asked whether an EGD should be pursued in light of the gastric abnormality as seen on CT a/p. Dr Lindsey's team saw patient today - deferred EGD, advised ongoing PPI + carafate; pepcid BID added by GI. Outpatient EGD recommended. (2) Encephalopathy: Plan: resolved most recent confusion likely toxic from meds (marinol, reglan) - both stopped 09/15/23 has had encephalopathy off/on throughout the stay for other multifactorial reasons - hospital delirium, insomnia, thiamine deficiency/Wernicke's encephalop athy, renal failure, etc. ativan made patient worse - it has been stopped Head CT x 2 both negative this admission s/p thigh-dose thiamine earlier in the stay; now on maintenance thiamine 200 mg daily was on antipsychotics earlier in the stay (seroquel, zyprexa) but these were stopped ~09/07/23 as his confusion had improved ordered haldol 2.5mg IM q8h prn agitation/delirium but none needed since it was ordered consider zyprex ODT 2.5mg HS for mood stabilization and confusion, if needed - but defer for now (3) Chronic pancreatitis: Plan: as seen on CT abd/pelvis (calcifications of pancreas seen) started creon 2 capsules with meals, 1 with snacks prn can't exclude component of acute pancreatitis as prior lipase levels were normal and now it amie to peak of 209 lipase level is trending down repeat lipase in am tomorrow (4) Abnormal CT scan, stomach: Plan: * perisplenic fluid collection continues to decrease in size * gastric wall continues to appear abnormal * pancreatic calcifications noted c/w chronic pancreatitis see discussion above GI saw patient today - inpatient EGD deferred, pepcid added to his PPI + carafate outpatient EGD recommended (5) Perforated abdominal viscus: Plan: Presented with free air and signs of intra-abdominal abscess/fluid collection formation on 06/28/23. This was in the setting of recent colonoscopy on 06/15/23 which showed signs of severe, pancolitis. Biopsies were c/w Ulcerative colitis. Went to OR on 06/28/23 with subtotal colon resection with rectal stump remaining along with ileostomy formation. Three areas of perforation were identified, abscess and feculent material seen. Pseudomonas, MSSA, and Enterococcus faecium as well as Mariely albicans isolated from intra-op cultures. Original plan was to continue daptomycin, Zosyn, and renally adjusted fluconazole through September 19, 2023. However, I spoke with ID 09/17 and they advise to continue the above antibiotics beyond 09/19 as the fluid collection has NOT resolved (although has gotten smaller) ID recommended to recheck another CT a/p in 2-3 weeks of note - switched cefepime to IV Zosyn 08/10 due to concern for cefepime induced neurotoxicity. Discontinued metronidazole after completing course on 08/10 (6) Ulcerative colitis: Plan: Patient with dailey ulcerative colitis diagnosed by colonoscopy 06/2023 Now status post subtotal colectomy with only rectal stump remaining and has ileostomy No treatment at this point but will need continued surveillance for colorectal CA of the rectal stump Will need follow-up with GI as an outpatient for surveillance as well as consideration of EGD (7) Acute kidney injury: Plan: First noted 07/25/23 ATN suspected as cause of DERIK OSWALDO from CT scans also possible Ultimately developed volume overload in setting of his DERIK Never had renal recovery dialysis started on 08/12 continues on HD - underwent HD today Permcath/Tunneled HD line placed 09/01/2023 appreciate nephrology assistance (8) Severe protein-calorie malnutrition: Plan: 12kg weight loss since May appetite improved however caloric intake improved has eaten all meals now for 3+ days trial off PPN; pharmacy aware recheck lipase in am; if lipase level is normal or near-normal can stop low fat diet and change to REGULAR diet cont Creon with meals + snacks needs EGD as outpatient (9) Acute hypoxic respiratory failure: Plan: 2nd volume overload resolved (10) Acute blood loss anemia: Plan: transfused total 5 units PRBCs this admission B12, folate, iron studies normal TSH mildly elevated and free T4 mildly low - would repeat in a week as outpatient H/H stable (11) Hard of hearing: Plan: severe hearing impairment Supportive care, wears hearing device (12) Ileostomy in place: Plan: functioning well radiographically the ileostomy appears wnl he is having pure liquid stool from the ostomy -- checked a c diff --> negative added pancrease for chronic pancreatitis stool output has improved; now down to <750cc/day added questran 4gm daily but he is refusing such if he won't take it consider loperamide 1-2x's daily -- if needed (13) Hypertension: Plan: cont amlodipine 5mg daily (14) Abdominal fluid collection: Plan: Per CT a/p on 09/14/23 - "There is continued decreased size of the perisplenic fluid collection approximate 6.3 x 1.2 cm. This measured 8.3 x 2.4 cm on the August 2023 study." I spoke with ID 09/17/23 -- they advise to cont IV antibiotics & antifungals BEYOND 09/19 and repeat imaging in about 2 weeks. (15) Vitamin D deficiency: Plan: 25-OH vit D level = 18 cont vit D 5000 IU daily (16) Mood disorder: Plan: is on remeron 15mg HS however, he has widely fluctuating mood swings, thoughts of dying, etc he reports having seen psych many times over the years consider a mood stabilizer such as lamictal or depakote; former likely the better choice or consider low-dose antipsychotic such as zyprexa ODT (tolerated such in the past) consider formal psych consult (17) Hypophosphatemia: Plan: NaPhos 12mmol x 1 IV Phos to be added back to PPN repeat phos level wnl (18) Superficial thrombophlebitis of left upper extremity: Plan: LUE doppler + for cephalic vein and basilic vein thrombosis no DVT however, subclavian vein flow is reduced I called and spoke with radiology - the subclavian vein flow is indeed reduced, but no DVT seen in the subclavian since pt's arm is often immobilized in a handcuff, has increased clot risk because of prolonged hospitalization, has underlying UC which is pro- inflammatory, etc I would be inclined to treat with anticoagulaton for 6 weeks or so I discussed this with him in detail today he is NOT willing to take lovenox injections I spoke with our pharmacy team Although it is off-label there is some data supporting use of Eliquis in dialysis patients and there is some data supporting use of DOACs in upper extremity clots Thus, will use Eliquis 2.5mg BID x 6 weeks starting AM for symptomatic care elevated LUE and use warm compresses Plan dispo - to [facility] SNF[facility]-term care facility on 09/22/23?? Admission and Anticipated Discharge Date Admission Date: June 28, 2023 Subjective no events overnight he continues to eat most meals served to him calorie count and intake is being monitored on flowsheets on his door and these demonstrate much improved appetite left upper arm discomfort improved today we discussed the superficial clots seen denies any change in mild, baseline abd pain no nausea/emesis denies any new complaints did have HD today w/o incident Review of Systems Review of Systems: gen - feels "pretty good" today cv - no chest pain pulm - no dyspnea at rest GI - no changes - voiding spontaneously Physical Exam Physical Exam: gen - cachectic but he does look better overall in comparison to prior visits; NAD neck - no JVD mouth - MMM, no lesions, no thrush heart - RRR, s1 s2, no murmur lungs - CTA b/l, mildly decreased BS bases abd - ileostomy in place R abdomen, stoma clean, liquid stool present; BS+, NT, ND, soft ext - localized edema of ALICIA with palpable cord over upper arm - no change; mild erythema & warmth; pulses 2+ b/l neuro - muscle wasting of all 4 limbs vascular - permcath present right upper chest - clean psych - a/o x 3 Results & Data Results & Data Vital Signs (Past 12 Hours) Vital Signs Temp Pulse Pulse Resp BP BP BP 09/20/23 12:55 36.6 C 94 H 16 159/95 H 09/20/23 12:20 36.7 C 85 162/98 H 09/20/23 12:00 103 H 145/100 H 09/20/23 11:30 93 H 143/99 H 09/20/23 11:00 92 H 149/100 H 09/20/23 10:30 84 152/99 H 09/20/23 10:00 89 149/101 H Pulse Ox O2 Del Method 09/20/23 12:55 98 Room Air PG Care Time/CCT Total # of Minutes Spent Total Time Spent with Patient: Total time spent is greater than 50% in coordination of care (as documented) at patient's floor/unit and/or counseling patient: Coding Level of Care Code 59552 SUB INP/OBS CARE 3/50MIN Diagnoses Abdominal pain R10.9 Encephalopathy G93.40 Chronic pancreatitis K86.[address] scan, stomach R93.3 Perforated abdominal viscus R19.8 Ulcerative pancolitis with abscess K51.014 Digestive disease complication type: with abscess Ulcerative colitis location: ulcerative pancolitis Acute kidney injury N17.9 Severe protein-calorie malnutrition E43 Acute hypoxic respiratory failure J96.01 Acute blood loss anemia D62 Bilateral hearing loss, unspecified hearing loss type H91.93 Hearing loss type: unspecified Laterality: bilateral Ileostomy in place Z93.2 Hypertension I10 Abdominal fluid collection R18.8 Vitamin D deficiency E55.9 Mood disorder F39 Hypophosphatemia E83.39 Superficial thrombophlebitis of left upper extremity I80.8 (6) Ulcerative colitis Digestive disease complication type: with abscess Ulcerative colitis location: ulcerative pancolitis Qualified Code(s): K51.014 - Ulcerative (chronic) pancolitis with abscess (11) Hard of hearing Hearing loss type: unspecified Laterality: bilateral Qualified Code(s): H91.93 - Unspecified hearing loss, bilateral
[2023-09-20] MEDS: PIPERACILLIN/TAZOBACTAM 4.5 GM in DEXTROSE 5% MINI-B 100 ML IV SCH (21:58)
[2023-09-20] MEDS: DAPTOmycin 600 MG in SYRINGE 0 ML IV SCH (21:58)
[2023-09-20] MEDS: FLUCONAZOLE 200 MG/100 ML BAG IV SCH (21:58)
[2023-09-21 06:17] LABS: Hematocrit (blood only) 34.4 % (42.0-52.0); Hemoglobin 11.5 g/dl (14.0-18.0); Mean Corpuscular Hemoglobin 30.1 pg (25.0-34.0); Mean Corpuscular Hgb Conc 33.4 g/dL (32.0-36.0); Mean Corpuscular Volume 90.1 fL (80.0-100.0); Mean Platelet Volume 9.7 fL (9.4-12.4); Platelet Count 318 K/uL (130-400); RDW Coefficient of Variation 15.9 % (11.5-14.5); RDW Standard Deviation 52.8 fL (36.4-46.3); Red Blood Count 3.82 M/uL (4.70-6.10); White Blood Count 5.62 K/ul (4.8-10.8)
[2023-09-21] MEDS: SUCRALFATE 1 GM/10 ML UDC PO SCH ×2 (08:15→12:11)
[2023-09-21] MEDS: amLODIPine BESYLATE 5 MG TAB PO SCH (08:15)
[2023-09-21] MEDS: THIAMINE HCL 100 MG TAB PO SCH (08:15)
[2023-09-21] MEDS: PANCREAZE (LIPASE 10,500U) CAP PO SCH ×3 (08:15→17:37)
[2023-09-21] MEDS: PANTOprazole 40 MG TAB PO SCH ×2 (08:15→20:02)
[2023-09-21] MEDS: CHOLECALCIFEROL 5,000 UNITS 125 MCG TAB PO SCH (08:15)
[2023-09-21] MEDS: FAMOTIDINE 20 MG TAB PO SCH ×2 (08:15→20:02)
[2023-09-21] MEDS: CHOLESTYRAMINE LIGHT 4 GM PKT PO SCH (08:16)
[2023-09-21] MEDS: MICONAZOLE NITRATE POWDER 85 GM EXT SCH ×2 (08:16→20:02)
[2023-09-21] MEDS: PIPERACILLIN/TAZOBACTAM 4.5 GM in DEXTROSE 5% MINI-B 100 ML IV SCH ×2 (08:16→20:02)
--- NOTE | 2023-09-21 08:52 | Nephrology Progress Note ---
Date of Service September 21, 2023 Assessment & Plan (1) Acute kidney injury: Plan: * ATN due to sepsis, contrast induced nephropathy. 07/27/23 renal US and 08/09/[address] were negative for obstruction. Baseline Cr ~ 1.0 * 1st HD 08/12/23 via temporary femoral catheter * R IJ TCC placed 08/16/[address] Kamara * New R IJ TCC placed 09/01/23 followed by HD. No complications * Appears clinically euvolemic. Patient is nonoliguric. I&O matched last 24 hours (UO 2775 cc). Labs this am are pending. Will continue to monitor for renal recovery. Plan next HD for am if needed * GI recommendations reviewed. Consider alternative to Carafate (In the setting of DERIK Carafate can potentially cause aluminum accumulation) (2) Intra-abdominal abscess: Plan: * Remains on daptomycin, Zosyn, and fluconazole * 08/27/[address] - thickening of small bowel suggestive of enteritis, 1.9 cm area within the wall of the stomach concerning for intramural abscess * Primary service has discussed POC w/ ID. Given persistent abdominal fluid collections, antibiotics are to be continued * Remains on JAY but is tolerating small amounts of oral diet (3) Hypertension: Plan: * BP is acceptable. Remains on amlodipine therapy Admission and Anticipated Discharge Date Admission Date: June 28, 2023 Subjective Mr. Deleon was evaluated in his hospital room this morning. He reports that his abdominal discomfort is improved, however he ate only 1 piece of toast and 2 egg whites for breakfast this morning Review of Systems Constitutional: no fever Eyes: no problem reported Ear, Nose, Mouth, Throat: no problem reported Respiratory: no cough and no dyspnea Cardiovascular: no chest pain Gastrointestinal: no nausea, no vomiting and no diarrhea/loose stools Physical Exam Constitutional: + cachectic; not in distress Eyes: PERRL, conjunctivae normal, anicteric sclerae ENMT: external ear and nose normal, oropharynx normal Neck: trachea midline, no thyromegaly Respiratory: normal respiratory effort, lungs clear to auscultation Cardiovascular: RRR, no murmur, no edema Extremities: no edema Gastrointestinal (Abdomen): Inspection/Auscultation: normal bowel sounds Results & Data Vital Signs (Past 12 Hours) Vital Signs Temp Pulse Resp BP BP Pulse Ox O2 Del Method 09/21/23 07:17 36.7 C 76 16 159/92 H 99 Room Air 09/20/23 21:59 36.8 C 94 H 20 146/80 H 98 Room Air Laboratory Results Laboratory Results - last 24 hr 09/21/23 05:40 WBC 5.62 RBC 3.82 L Hgb 11.5 L Hct 34.4 L MCV 90.1 MCH 30.1 MCHC 33.4 RDW Std Deviation 52.8 H RDW Coeff of Ashley 15.9 H Plt Count 318 MPV 9.7 Sodium Pending Potassium Pending Chloride Pending Carbon Dioxide Pending Anion Gap Pending BUN Pending Creatinine Pending Est Cr Clr Drug Dosing Pending Est GFR ( Amer) Pending Est GFR (Non-Af Amer) Pending BUN/Creatinine Ratio Pending Glucose Pending Calcium Pending Phosphorus Pending Magnesium Pending Total Bilirubin Pending AST Pending ALT Pending Alkaline Phosphatase Pending Total Protein Pending Albumin Pending Globulin Pending Albumin/Globulin Ratio Pending Lipase 130 H PG Care Time/CCT Total # of Minutes Spent Total Time Spent with Patient: Total time spent is greater than 50% in coordination of care (as documented) at patient's floor/unit and/or counseling patient: Coding Level of Care Code 53778 SUB INP/OBS CARE 3/50MIN Diagnoses Acute kidney injury N17.9 Intra-abdominal abscess K65.1 Hypertension I10
[2023-09-21] MEDS: APIXABAN 2.5 MG TAB PO SCH ×2 (08:58→20:02)
[2023-09-21 14:21] LABS: Albumin Level 2.9 gm/dl (3.4-5.0); Bilirubin,Total 0.4 mg/dl (0.2-1.0); Calcium 8.8 mg/dl (8.6-10.3); Magnesium 1.8 mg/dl (1.7-2.4); Potassium 4.1 mmol/L (3.5-5.1)
[2023-09-21 14:28] LABS: Albumin Globulin Ratio 0.9 (0.9-2); BUN Creatinine Ratio 24.7 (10-20); Creatinine Clr Calc Pharmacy 33.4 ml/min; Est GFR (African American) 53.4 ml/min; Globulin 3.3 gm/dl (2.5-4.0); Phosphorus 3.6 mg/dl (2.5-4.9); Total Protein 6.2 gm/dl (6.0-8.3)
--- NOTE | 2023-09-21 15:44 | Hospitalist Progress Note ---
Date of Service September 21, 2023 Assessment & Plan (1) Abdominal pain: Plan: He is nearly 3 months post-op from his extensive exploratory laparotomy surgery performed on 06/28/23. He continues with mild abdominal pain often with eating. He often feels full in his abdomen as well. These symptoms have improved since starting Creon for chronic pancreatitis. Symptoms also improved with additional acid reduction. Pain could be gastric in etiology given the ongoing gastric wall thickening seen on CT. However, radiology does mention the gastric abnormality HAS improved over serial CTs. (CT was repeated 09/14/23). Could be from #3. Could be acute pancreatitis as prior lipase levels were normal and on 09/15/23 it was 209. Of note - his pain coupled with anorexia has led to weight loss and failure to thrive over the last couple of months. Tolerating low fat diet. Pt asks for low fat diet to be stopped; lipase improved and only mildly elevated less than 2 times upper limit of normal. Will allow general diet especially given his general overall low intake and see if he tolerates this gastroenterology saw patient last on 09/20 - deferred EGD, advised ongoing PPI + carafate; pepcid BID added by GI. Outpatient EGD recommended. stopped Carafate as per recommendation of nephrologistcan cause aluminum accumulation in setting of DERIK continue Creon and medications above (2) Encephalopathy: Plan: resolved most recent confusion likely toxic from meds (marinol, reglan) - both stopped 09/15/23 has had encephalopathy off/on throughout the stay for other multifactorial reasons - hospital delirium, insomnia, thiamine deficiency/Wernicke's encephalopathy, renal failure, etc. ativan made patient worse - it has been stopped Head CT x 2 both negative this admission s/p thigh-dose thiamine earlier in the stay; now on maintenance thiamine 200 mg daily was on antipsychotics earlier in the stay (seroquel, zyprexa) but these were stopped ~09/07/23 as his confusion had improved ordered haldol 2.5mg IM q8h prn agitation/delirium but none needed since it was ordered consider zyprex ODT 2.5mg HS for mood stabilization and confusion, if needed - but defer for now (3) Chronic pancreatitis: Plan: as seen on CT abd/pelvis (calcifications of pancreas seen) started creon 2 capsules with meals, 1 with snacks prn can't exclude component of acute pancreatitis as prior lipase levels were normal and amie to peak of 209 lipase level is trending down, now 120 (4) Abnormal CT scan, stomach: Plan: * perisplenic fluid collection continues to decrease in size * gastric wall continues to appear abnormal * pancreatic calcifications noted c/w chronic pancreatitis see discussion above GI saw patient today - inpatient EGD deferred, pepcid added to his PPI + carafate outpatient EGD recommended (5) Perforated abdominal viscus: Plan: Presented with free air and signs of intra-abdominal abscess/fluid collection formation on 06/28/23. This was in the setting of recent colonoscopy on 06/15/23 which showed signs of severe, pancolitis. Biopsies were c/w Ulcerative colitis. Went to OR on 06/28/23 with subtotal colon resection with rectal stump remaining along with ileostomy formation. Three areas of perforation were identified, abscess and feculent material seen. Pseudomonas, MSSA, and Enterococcus faecium as well as Mariely albicans isolated from intra-op cultures. Original plan was to continue daptomycin, Zosyn, and renally adjusted fluconazole through September 19, 2023. However, I spoke with ID 09/17 and they advise to continue the above antibiotics beyond 09/19 as the fluid collection has NOT resolved (although has gotten smaller) ID recommended to recheck another CT a/p in 2-3 weeks of note - switched cefepime to IV Zosyn 08/10 due to concern for cefepime induced neurotoxicity. Discontinued metronidazole after completing course on 08/10 (6) Ulcerative colitis: Plan: Patient with dailey ulcerative colitis diagnosed by colonoscopy 06/2023 Now status post subtotal colectomy with only rectal stump remaining and has ileostomy No treatment at this point but will need continued surveillance for colorectal CA of the rectal stump Will need follow-up with GI as an outpatient for surveillance as well as consideration of EGD (7) Acute kidney injury: Plan: First noted 07/25/23 ATN suspected as cause of DERIK OSWALDO from CT scans also possible Ultimately developed volume overload in setting of his DERIK Never had renal recovery dialysis started on 08/12 continues on HD Permcath/Tunneled HD line placed 09/01/2023 appreciate nephrology assistance (8) Severe protein-calorie malnutrition: Plan: 12kg weight loss since May appetite improved however caloric intake improved PPN stopped 09/20, monitor caloric intake, changed to regular diet cont Creon with meals + snacks needs EGD as outpatient (9) Acute hypoxic respiratory failure: Plan: 2nd volume overload resolved (10) Acute blood loss anemia: Plan: transfused total 5 units PRBCs this admission B12, folate, iron studies normal TSH mildly elevated and free T4 mildly low - would repeat in a week as outpatient H/H stable (11) Hard of hearing: Plan: severe hearing impairment Supportive care, wears hearing device (12) Ileostomy in place: Plan: functioning well radiographically the ileostomy appears wnl he is having pure liquid stool from the ostomy -- checked a c diff --> negative added pancrease for chronic pancreatitis stool output has improved; now down to <750cc/day added questran 4gm daily but he is refusing such if he won't take it consider loperamide 1-2x's daily -- if needed (13) Hypertension: Plan: cont amlodipine 5mg daily (14) Abdominal fluid collection: Plan: Per CT a/p on 09/14/23 - "There is continued decreased size of the perisplenic fluid collection approximate 6.3 x 1.2 cm. This measured 8.3 x 2.4 cm on the August 2023 study." I spoke with ID 09/17/23 -- they advise to cont IV antibiotics & antifungals BEYOND 09/19 and repeat imaging in about 2 weeks. (15) Vitamin D deficiency: Plan: 25-OH vit D level = 18 cont vit D 5000 IU daily (16) Mood disorder: Plan: is on remeron 15mg HS however, he has widely fluctuating mood swings, thoughts of dying, etc he reports having seen psych many times over the years consider a mood stabilizer such as lamictal or depakote; former likely the better choice or consider low-dose antipsychotic such as zyprexa ODT (tolerated such in the past) consider formal psych consult (17) Hypophosphatemia: Plan: replaced IV repeat phos level wnl (18) Superficial thrombophlebitis of left upper extremity: Plan: LUE doppler + for cephalic vein and basilic vein thrombosis no DVT however, subclavian vein flow is reduced Eliquis 2.5mg BID x 6 weeks starting 09/21 for symptomatic care elevated LUE and use warm compresses Plan dispo - to [facility] residential system SNF/long-term care facility on 09/22/23?? Admission and Anticipated Discharge Date Admission Date: June 28, 2023 Subjective Doing okay today and walked the whole lap around the cross in the hallway according to the guards at bedside. Continues to eat dramatically better than 2 weeks ago but still has early satiety and eating small amounts Physical Exam 2 Physical Exam: PHYSICAL EXAMINATION Last 24h vital signs reviewed, see documentation in flowsheet General: awake alert looks stronger than when I last saw him HEENT: Normocephalic, atraumatic, pupils round and equal, sclerae anicteric, no conjunctival injection, moist mucus membranes. very hard of hearing uses pocket talker Lungs: Normal respiratory effort CTA B anteriorly Heart: regular no MRG neck vv flat Tunneled HD catheter R upper chest cdi Abdomen: s soft nontender nondistended Extremities: sarcopenia present, lower extremities warm and well-perfused, no extremity edema Neuro: Alert and oriented x 4, face symmetric, moves 4 extremities well Psych: normal affect and behavior Results & Data Results & Data Vital Signs (Past 12 Hours) Vital Signs Temp Pulse Resp BP Pulse Ox O2 Del Method 09/21/23 15:30 36.6 C 90 16 159/99 H 99 Room Air 09/21/23 07:17 36.7 C 76 16 159/92 H 99 Room Air Laboratory Results 09/21/23 05:40 09/21/23 05:40 PG Care Time/CCT Total # of Minutes Spent Total Time Spent with Patient: Total time spent is greater than 50% in coordination of care (as documented) at patient's floor/unit and/or counseling patient: Coding Level of Care Code 34965 SUB INP/OBS CARE 2/35MIN Diagnoses Abdominal pain R10.9 Encephalopathy G93.40 Chronic pancreatitis K86.[address] scan, stomach R93.3 Perforated abdominal viscus R19.8 Ulcerative pancolitis with abscess K51.014 Ulcerative colitis location: ulcerative pancolitis Digestive disease complication type: with abscess Acute kidney injury N17.9 Severe protein-calorie malnutrition E43 Acute hypoxic respiratory failure J96.01 Acute blood loss anemia D62 Bilateral hearing loss, unspecified hearing loss type H91.93 Hearing loss type: unspecified Laterality: bilateral Ileostomy in place Z93.2 Hypertension I10 Abdominal fluid collection R18.8 Vitamin D deficiency E55.9 Mood disorder F39 Hypophosphatemia E83.39 Superficial thrombophlebitis of left upper extremity I80.8 (6) Ulcerative colitis Ulcerative colitis location: ulcerative pancolitis Digestive disease complication type: with abscess Qualified Code(s): K51.014 - Ulcerative (chronic) pancolitis with abscess (11) Hard of hearing Hearing loss type: unspecified Laterality: bilateral Qualified Code(s): H 91.93 - Unspecified hearing loss, bilateral
[2023-09-21] MEDS: MIRTAZAPINE TAB 15 MG TAB PO SCH (20:02)
[2023-09-21] MEDS: FLUCONAZOLE 200 MG/100 ML BAG IV SCH (21:28)
[2023-09-22] MEDS ORDERED: SODIUM CHLORIDE 0.9% 1,000 ML IV PRN (07:00)
[2023-09-22] MEDS: APIXABAN 2.5 MG TAB PO SCH ×2 (08:07→20:20)
[2023-09-22] MEDS: PANCREAZE (LIPASE 10,500U) CAP PO SCH ×3 (08:07→18:23)
[2023-09-22] MEDS: CHOLECALCIFEROL 5,000 UNITS 125 MCG TAB PO SCH (08:08)
[2023-09-22] MEDS: CHOLESTYRAMINE LIGHT 4 GM PKT PO SCH (08:08)
[2023-09-22] MEDS: FAMOTIDINE 20 MG TAB PO SCH ×2 (08:09→20:19)
[2023-09-22] MEDS: MICONAZOLE NITRATE POWDER 85 GM EXT SCH ×2 (08:09→20:20)
[2023-09-22] MEDS: PANTOprazole 40 MG TAB PO SCH ×2 (08:09→20:19)
[2023-09-22] MEDS: THIAMINE HCL 100 MG TAB PO SCH (08:10)
--- NOTE | 2023-09-22 08:49 | Nephrology Progress Note ---
Date of Service September 22, 2023 Assessment & Plan (1) Acute kidney injury: Plan: * ATN due to sepsis, contrast induced nephropathy. 07/27/23 renal US and 08/09/[address] were negative for obstruction. Baseline Cr ~ 1.0 * 1st HD 08/12/23 via temporary femoral catheter * R IJ TCC placed 08/16/[address] Kamara * New R IJ TCC placed 09/01/23 followed by HD. No complications * Appears clinically euvolemic. Patient is nonoliguric. UO 1425 last 24 hours. Creatinine continues to trend up in between HD treatments. Will provide 3 hour HD treatment today and then continue to monitor for renal recovery * GI recommendations reviewed. Consider alternative to Carafate (In the setting of DERIK Carafate can potentially cause aluminum accumulation) (2) Intra-abdominal abscess: Plan: * Remains on daptomycin, Zosyn, and fluconazole * 08/27/[address] - thickening of small bowel suggestive of enteritis, 1.9 cm area within the wall of the stomach concerning for intramural abscess * Primary service has discussed POC w/ ID. Given persistent abdominal fluid collections, antibiotics are to be continued (3) Hypertension: Plan: * BP is acceptable. Remains on amlodipine therapy Admission and Anticipated Discharge Date Admission Date: June 28, 2023 Subjective Mr. Deleon was evaluated in his hospital room this morning. He reports improved appetite and was able to ambulate a short distance yesterday. He refused his lab draw this am but allowed it later this morning following discussion w/ myself and hospital staff Review of Systems Constitutional: no fever Eyes: no problem reported Ear, Nose, Mouth, Throat: no problem reported Respiratory: no cough and no dyspnea Cardiovascular: no chest pain Gastrointestinal: no nausea, no vomiting and no diarrhea/loose stools Physical Exam Constitutional: + cachectic; not in distress Eyes: PERRL, conjunctivae normal, anicteric sclerae ENMT: external ear and nose normal, oropharynx normal Neck: trachea midline, no thyromegaly R IJ TCC w/ clean, dry dressing in place Respiratory: normal respiratory effort, lungs clear to auscultation Cardiovascular: Rate/Rhythm: regular rate and regular rhythm Extremities: no edema Gastrointestinal (Abdomen): Inspection/Auscultation: normal bowel sounds Neurologic: not confused (ANGOON) Results & Data Vital Signs (Past 12 Hours) Vital Signs Temp Pulse Resp BP Pulse Ox O2 Del Method 09/22/23 07:08 36.8 C 78 18 159/88 H 99 Room Air 09/21/23 21:34 36.6 C 88 16 154/88 H 97 Room Air Laboratory Results Laboratory Results - last 24 hr 09/21/23 09/22/23 05:40 09:00 Sodium 137 137 Potassium 4.1 4.0 Chloride 105 107 Carbon Dioxide 20 L 22 Anion Gap 12 H 8 BUN 41 H D 45 H Creatinine 1.66 H D 2.36 H D Est Cr Clr Drug Dosing 33.4 23.5 Est GFR ( Amer) 53.4 34.9 Est GFR (Non-Af Amer) 46.0 30.1 BUN/Creatinine Ratio 24.7 H 19.1 Glucose 91 136 H Calcium 8.8 8.9 Phosphorus 3.6 4.4 Magnesium 1.8 1.8 Total Bilirubin 0.4 AST 45 H ALT 54 H Alkaline Phosphatase 327 H Total Protein 6.2 Albumin 2.9 L Globulin 3.3 Albumin/Globulin Ratio 0.9 Lipase 129 H PG Care Time/CCT Total # of Minutes Spent Total Time Spent with Patient: Total time spent is greater than 50% in coordination of care (as documented) at patient's floor/unit and/or counseling patient: Coding Level of Care Code 59376 SUB INP/OBS CARE 3/50MIN Diagnoses Acute kidney injury N17.9 Intra-abdominal abscess K65.1 Hypertension I10
[2023-09-22 09:31] LABS: BUN Creatinine Ratio 19.1 (10-20); Calcium 8.9 mg/dl (8.6-10.3); Creatinine Clr Calc Pharmacy 23.5 ml/min; Est GFR (African American) 34.9 ml/min; Est GFR (Non-African American) 30.1 ml/min; Magnesium 1.8 mg/dl (1.7-2.4); Phosphorus 4.4 mg/dl (2.5-4.9)
[2023-09-22] MEDS: amLODIPine BESYLATE 5 MG TAB PO SCH (15:08)
[2023-09-22] MEDS: PIPERACILLIN/TAZOBACTAM 4.5 GM in DEXTROSE 5% MINI-B 100 ML IV SCH (15:09)
--- NOTE | 2023-09-22 19:33 | Hospitalist Progress Note ---
Date of Service September 22, 2023 Assessment & Plan (1) Abdominal pain: Plan: He is nearly 3 months post-op from his extensive exploratory laparotomy surgery performed on 06/28/23. He continues with mild abdominal pain often with eating. He often feels full in his abdomen as well. These symptoms have improved since starting Creon for chronic pancreatitis. Symptoms also improved with additional acid reduction. Pain could be gastric in etiology given the ongoing gastric wall thickening seen on CT. However, radiology does mention the gastric abnormality HAS improved over serial CTs. (CT was repeated 09/14/23). Could be from #3. Could be acute pancreatitis as prior lipase levels were normal and on 09/15/23 it was 209. Of note - his pain coupled with anorexia has led to weight loss and failure to thrive over the last couple of months. Tolerating low fat diet. Pt asks for low fat diet to be stopped; lipase improved and only mildly elevated less than 2 times upper limit of normal. Will allow general diet especially given his general overall low intake and see if he tolerates this gastroenterology saw patient last on 09/20 - deferred EGD, advised ongoing PPI + carafate; pepcid BID added by GI. Outpatient EGD recommended. stopped Carafate as per recommendation of nephrologistcan cause aluminum accumulation in setting of DERIK continue Creon and medications above (2) Encephalopathy: Plan: resolved most recent confusion likely toxic from meds (marinol, reglan) - both stopped 09/15/23 has had encephalopathy off/on throughout the stay for other multifactorial reasons - hospital delirium, insomnia, thiamine deficiency/Wernicke's encephalopathy, renal failure, etc. ativan made patient worse - it has been stopped Head CT x 2 both negative this admission s/p thigh-dose thiamine earlier in the stay; now on maintenance thiamine 200 mg daily was on antipsychotics earlier in the stay (seroquel, zyprexa) but these were stopped ~09/07/23 as his confusion had improved consider zyprex ODT 2.5mg HS for mood stabilization and confusion, if needed - but defer for now (3) Chronic pancreatitis: Plan: as seen on CT abd/pelvis (calcifications of pancreas seen) started creon 2 capsules with meals, 1 with snacks prn can't exclude component of acute pancreatitis as prior lipase levels were normal and amie to peak of 209 lipase level is trending down, now 120 allowed trial of general diet since his intake is low regardless, increased palatability will be important (4) Abnormal CT scan, stomach: Plan: * perisplenic fluid collection continues to decrease in size * gastric wall continues to appear abnormal * pancreatic calcifications noted c/w chronic pancreatitis see discussion above GI saw patient 09/20 - inpatient EGD deferred, pepcid added to his PPI outpatient EGD recommended (5) Perforated abdominal viscus: Plan: Presented with free air and signs of intra-abdominal abscess/fluid collection formation on 06/28/23. This was in the setting of recent colonoscopy on 06/15/23 which showed signs of severe, pancolitis. Biopsies were c/w Ulcerative colitis. Went to OR on 06/28/23 with subtotal colon resection with rectal stump remaining along with ileostomy formation. Three areas of perforation were identified, abscess and feculent material seen. Pseudomonas, MSSA, and Enterococcus faecium as well as Mariely albicans isolated from intra-op cultures. Original plan was to continue daptomycin, Zosyn, and renally adjusted fluconazole through September 19, 2023. However, I spoke with ID 09/17 and they advise to continue the above antibiotics beyond 09/19 as the fluid collection has NOT resolved (although has gotten smaller) ID recommended to recheck another CT a/p in 2-3 weeks of note - switched cefepime to IV Zosyn 08/10 due to concern for cefepime induced neurotoxicity. Discontinued metronidazole after completing course on 08/10 (6) Ulcerative colitis: Plan: Patient with dailey ulcerative colitis diagnosed by colonoscopy 06/2023 Now status post subtotal colectomy with only rectal stump remaining and has ileostomy No UC treatment at this point but will need continued surveillance for colorectal CA of the rectal stump Will need follow-up with GI as an outpatient for surveillance as well as consideration of EGD (7) Acute kidney injury: Plan: First noted 07/25/23 ATN suspected as cause of DERIK OSWALDO from CT scans also possible Ultimately developed volume overload in setting of his DERIK Never had renal recovery dialysis started on 08/12 continues on HD Permcath/Tunneled HD line placed 09/01/2023 appreciate nephrology assistance (8) Severe protein-calorie malnutrition: Plan: 12kg weight loss since May, though stable since 09/03 appetite improved however caloric intake improved PPN stopped 09/20, monitor caloric intake, changed to regular diet cont Creon with meals + snacks needs EGD as outpatient (9) Acute hypoxic respiratory failure: Plan: 2nd volume overload resolved (10) Acute blood loss anemia: Plan: transfused total 5 units PRBCs this admission B12, folate, iron studies normal TSH mildly elevated and free T4 mildly low - would repeat in a week as outpatient H/H stable (11) Hard of hearing: Plan: severe hearing impairment Supportive care, wears hearing device (12) Ileostomy in place: Plan: functioning well radiographically the ileostomy appears wnl he is having pure liquid stool from the ostomy -- checked a c diff --> negative added pancrease for chronic pancreatitis stool output has improved; apx 400 mL/d this week added questran 4gm daily but he is refusing such if he won't take it consider loperamide 1-2x's daily -- if needed (13) Hypertension: Plan: cont amlodipine 5mg daily (14) Abdominal fluid collection: Plan: Per CT a/p on 09/14/23 - "There is continued decreased size of the perisplenic fluid collection approximate 6.3 x 1.2 cm. This measured 8.3 x 2.4 cm on the August 2023 study." I spoke with ID 09/17/23 -- they advise to cont IV antibiotics & antifungals BEYOND 09/19 and repeat imaging in about 2 weeks. (15) Vitamin D deficiency: Plan: 25-OH vit D level = 18 cont vit D 5000 IU daily (16) Mood disorder: Plan: is on remeron 15mg HS however, he has widely fluctuating mood swings, thoughts of dying, etc he reports having seen psych many times over the years consider a mood stabilizer such as lamictal or depakote; former likely the better choice or consider low-dose antipsychotic such as zyprexa ODT (tolerated such in the past) consider formal psych consult (17) Hypophosphatemia: Plan: replaced IV repeat phos level wnl (18) Superficial thrombophlebitis of left upper extremity: Plan: LUE doppler + for cephalic vein and basilic vein thrombosis no DVT however, subclavian vein flow is reduced Eliquis 2.5mg BID x 6 weeks starting 09/21 for symptomatic care elevated LUE and use warm compresses Plan dispo - to [facility] senior care system SNF/long-term care facility on Friday 09/22 Admission and Anticipated Discharge Date Admission Date: June 28, 2023 Subjective seen on HD this morning. Doing ok. Tolerating general diet. No increase/change in abdominal pain. No shortness of breath. Physical Exam 2 Physical Exam: PHYSICAL EXAMINATION Last 24h vital signs reviewed, see documentation in flowsheet General: awake alert, currently on HD Exam otherwise unchanged 09/22: HEENT: Normocephalic, atraumatic, pupils round and equal, sclerae anicteric, no conjunctival injection, moist mucus membranes. very hard of hearing uses pocket talker Lungs: Normal respiratory effort CTA B anteriorly Heart: regular no MRG neck vv flat Tunneled HD catheter R upper chest cdi Abdomen: s soft nontender nondistended Extremities: sarcopenia present, lower extremities warm and well-perfused, no extremity edema Neuro: Alert and oriented x 4, face symmetric, moves 4 extremities well Psych: normal affect and behavior Results & Data Results & Data Vital Signs (Past 12 Hours) Vital Signs Temp Pulse Pulse Pulse Resp BP BP 09/22/23 14:37 36.7 C 79 18 153/87 H 09/22/23 13:00 81 18 148/87 H 09/22/23 12:35 36.7 C 62 138/77 09/22/23 12:00 97 H 140/99 09/22/23 11:30 91 H 140/90 09/22/23 11:00 85 146/100 H 09/22/23 10:30 83 151/97 H 09/22/23 10:00 82 140/96 09/22/23 09:45 74 160/92 H 09/22/23 09:25 36.6 C 83 Pulse Ox O2 Del Method 09/22/23 14:37 99 Room Air 09/22/23 13:00 97 Room Air 09/22/23 12:35 09/22/23 12:00 09/22/23 11:30 09/22/23 11:00 09/22/23 10:30 09/22/23 10:00 09/22/23 09:45 09/22/23 09:25 Laboratory Results 09/21/23 05:40 09/22/23 09:00 PG Care Time/CCT Total # of Minutes Spent Total Time Spent with Patient: I personally spent: 55 minutes today on clinical care activities including: reviewing chart notes and vital signs reviewing labs discussion with critical care educator, transfer center examining and counseling the patient preparing discharge orders writing orders documentation Coding Level of Care Code 45526 SUB INP/OBS CARE 3/50MIN Diagnoses Abdominal pain R10.9 Encephalopathy G93.40 Chronic pancreatitis K86.[address] scan, stomach R93.3 Perforated abdominal viscus R19.8 Ulcerative pancolitis with abscess K51.014 Ulcerative colitis location: ulcerative pancolitis Digestive disease complication type: with abscess Acute kidney injury N17.9 Severe protein-calorie malnutrition E43 Acute hypoxic respiratory failure J96.01 Acute blood loss anemia D62 Bilateral hearing loss, unspecified hearing loss type H91.93 Hearing loss type: unspecified Laterality: bilateral Ileostomy in place Z93.2 Hypertension I10 Abdominal fluid collection R18.8 Vitamin D deficiency E55.9 Mood disorder F39 Hypophosphatemia E83.39 Superficial thrombophlebitis of left upper extremity I80.8 (6) Ulcerative colitis Ulcerative colitis location: ulcerative pancolitis Digestive disease complication type: with abscess Qualified Code(s): K51.014 - Ulcerative (chronic) pancolitis with abscess (11) Hard of hearing Hearing loss type: unspecified Laterality: bilateral Qualified Code(s): H 91.93 - Unspecified hearing loss, bilateral
--- NOTE | 2023-09-22 19:52 | Discharge Summary ---
Date of Service September 23, 2023 Admission HPI Per Admitting Provider 53-year-old prisoner with an extensive GI history of ulcerative colitis presents with a perforated colon. He was in the hospital for over a month between May and June with severe abdominal pain, diarrhea, bloody diarrhea, nausea and vomiting. A colonoscopy was done 13 days ago which demonstrated severe acute pancolitis including severe proctocolitis. There were multiple deep ulcerations throughout the colon as well as multiple inflammatory polyps. He was sent back to retirement following the colonoscopy. He continued to have pain. He states that yesterday the pain significantly worsened. He has been having fevers and chills. He has been having nausea and vomiting. CT scan today demonstrates free air, multiple loculated fluid collections throughout the mesentery, severe colitis with a toxic megacolon picture. Principal Diagnosis perforated colon due to toxic megacolon related to ulcerative colitis Discharge Exam PHYSICAL EXAMINATION see progress note 09/22, see addendum 09/23 Discharge Data Allergies Allergy/AdvReac Type Severity Reaction Status Date / Time No Known Allergies Allergy Verified 06/14/23 10:21 Consultations 06/28/23 12:51 ED Decision to Admit Stat 06/28/23 19:58 Consult Fire Investigation Lieutenant Routine 06/29/23 09:39 Consult Hospitalist Routine 06/29/23 14:17 Consult Nephrology Routine 07/12/23 08:49 Consult Infectious Diseases Routine 07/28/23 08:59 Consult Nephrology Routine 08/02/23 19:27 Consult Gastroenterology Routine 08/12/23 08:22 Consult Fire Investigation Lieutenant Routine 08/15/23 12:01 Consult Vascular Surgery Routine 08/18/23 13:47 Consult General Surgery Routine 08/31/23 09:24 Consult Vascular Surgery Routine Procedures Performed Operation Date: 09/01/23 12:30 Actual Procedures p Perm Catheter Placement, Perm Cath Removal, Right Internal Jugular Approach, Ultrasound Localization of Right Internal Jugular Vein, Fluorosocpy for Positioning, Moderate Sedation 13:25-14:00(Right) - Gregorio Kamara MD Ordered Studies 06/28/23 11:12 CT Abd and Pelvis [CT abd pelvis IV con only] Stat 07/05/23 09:00 CT abd pelvis IV con only Urgent 07/06/23 12:[address] periton/retro w/gdnce Urgent 07/10/23 14:01 CT abd pelvis oral and IV con Routine Head CT [CT head/brain wo con] Routine 07/19/23 08:28 CT Abd and Pelvis [CT abd pelvis oral and IV con] Urgent 07/23/23 11:[address] periton/retro w/gdnce Urgent 07/27/23 07:36 US renal/blad retro comp Routine 08/02/23 08:01 CT abd pelvis wo con Routine 08/09/23 00:35 CT head/brain wo con Urgent 08/09/23 11:24 CT Abdomen and Pelvis [CT abd pelvis wo con] Routine 08/12/23 08:15 US point of care ultrasound Urgent 08/16/23 11:09 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 COMPARISON STUDY: CT of the abdomen and pelvis June 09, 2023. TECHNIQUE: Following IV administration of 90 mL of Optiray, axial images of the abdomen and pelvis were obtained from the lung bases to the proximal femurs. Images were reviewed in the axial, sagittal, and coronal planes. IV contrast was administered without complication. Automated exposure control was utilized for the study. A dose lowering technique was utilized adhering to the principles of ALARA. CT DOSE: 454.17 mGy.cm FINDINGS: Note is made of a 1.3 cm subpleural left lower lobe nodule with adjacent ground glass opacity. This was not evident on CT of June 09, 2023. There has been interval development of moderate pneumoperitoneum. Hepatic steatosis is noted. Spleen, adrenal glands, kidneys and pancreas are unremarkable. There is no biliary or pancreatic ductal dilatation. Note is again made of wall thickening involving the entire colon with pericolonic stranding. Irregularity of the wall of the transverse colon is noted. The transverse colon is dilated, measuring 5.9 cm in caliber. Note is made of multiple gas and fluid containing collections within the abdomen and pelvis. The largest is within the right hemipelvis, measuring 11.2 x 5.2 cm. A central pelvic collection to indicate with the larger collection measures 7.5 x 6.5 cm. A central mesenteric gas and fluid containing collection measures 4.8 x 3.9 cm. The appendix is normal. Is no evidence for a bowel obstruction. Smaller pockets of fluid within the abdomen and pelvis are present. Major vasculature is grossly patent. IMPRESSION: 1. Interval development of moderate pneumoperitoneum since CT of June 09, 2023 consistent with perforation of a hollow viscus. The primary consideration for the source of pneumoperitoneum is the transverse colon. The findings suggest pancolitis with interval development of possible toxic megacolon. Multiple gas and fluid containing collections within the abdomen and pelvis suspicious for developing abscesses. Surgical consultation is recommended. Findings discussed with Dr. Francois at time of dictation. 2. 1.3 cm subpleural left lower lobe nodule with mild adjacent groundglass opacity which is new since prior CT. This is probably infectious however a follow-up chest CT in 3 months to ensure resolution is recommended. ACT 112: Negative or not required by law. Electronically signed by: Andres Amanda M.D. 06/28/2023 12:36 PM Chest X-Ray 07/01/23 10:36 SINGLE VIEW CHEST CLINICAL HISTORY: PICC placement. FINDINGS: An AP, portable, upright chest radiograph is correlated with chest CT dated 06/17/2023. An enteric tube has been placed. The tip projects below the diaphragm over the proximal stomach. A right-sided PICC line has been placed. The tip projects over the cavoatrial junction. The heart is top normal for projection. There is prominence of the pulmonary vasculature. There are small pleural effusions with dependent consolidation. No pneumothorax is seen. The bony thorax is grossly intact. Pneumoperitoneum is seen below the right hemidiaphragm. Skin clips are noted in the abdominal midline. IMPRESSION: 1. An enteric tube and a right-sided PICC line have been placed as above. 2. Pneumoperitoneum is seen below the right hemidiaphragm. 3. There is prominence of the pulmonary vasculature. Correlate clinically for evidence of fluid overload/congestive change. 4. Small pleural effusions with dependent consolidation. 5. The left basilar pulmonary lesion seen on the recent abdominal CT is not appreciated on x-ray. ACT 112: Negative or not required by law. Electronically signed by: Hu Suarez M.D. 07/01/2023 10:57 AM KUB X-Ray 07/04/23 06:00 XR KUB/Abdomen 1 view CLINICAL HISTORY: s/p subtotal colectomy TECHNIQUE: 1 view of the abdomen was obtained. Comparison: Comparison is made to abdomen radiograph 06/27/[address] abdomen pelvis 06/28/2023 FINDINGS: Enteric tube is seen. Postsurgical changes of subtotal colectomy noted with patricia seen. Prominence of a few loops of small bowel measuring up to 42 mm in diameter. IMPRESSION: Post surgical changes are seen. Prominence of multiple loops of small bowel may represent postoperative ileus, less likely obstruction. Enteric tube is in satisfactory position. ACT 112: Negative or not required by law. Electronically signed by: Sudhakar Ambrose M.D. 07/04/2023 4:10 PM KUB X-Ray 07/04/23 22:56 KUB CLINICAL HISTORY: NG placement COMPARISON STUDY: CT of the abdomen and pelvis June 28, 2023. KUB July 04, 2023 at 6:54 AM. FINDINGS: Tip of nasogastric tube is within the body of the stomach. Skin patricia from laparotomy are noted. Lucency under the right hemidiaphragm is noted. There are small bilateral pleural effusions with bibasilar opacities. Interstitial thickening is present. Right PICC is in place. IMPRESSION: 1. Tip of nasogastric tube within the body of the stomach. 2. Lucency under the right hemidiaphragm. This favors pneumoperitoneum. This may be postsurgical however correlation with date of surgery is recommended to exclude the possibility of perforation/leak. 3. Small bilateral pleural effusions with bibasilar opacities which could reflect consolidation or atelectasis. 4. Interstitial thickening suggestive of mild pulmonary edema. ACT 112: Negative or not required by law. Electronically signed by: Andres Amanda M.D. 07/05/2023 7:46 AM Abdomen/Pelvis CT 07/05/23 09:00 CT OF THE ABDOMEN AND PELVIS WITH CONTRAST CLINICAL HISTORY: increasing drainage from lower wound incision COMPARISON STUDY: CT of the abdomen and pelvis June 28, 2023. TECHNIQUE: Following IV administration of 93 mL of Optiray, axial images of the abdomen and pelvis were obtained from the lung bases to the proximal femurs. Images were reviewed in the axial, sagittal, and coronal planes. IV contrast was administered without complication. Automated exposure control was utilized for the study. A dose lowering technique was utilized adhering to the principles of ALARA. CT DOSE: 548.65 mGy.cm FINDINGS: Small to moderate left and small right pleural effusions are partially imaged. Extensive lower lobe opacities favor atelectasis. No pneumatosis is present. Moderate pneumoperitoneum is present. There are postoperative findings consistent with laparotomy with subtotal colectomy right lower quadrant ileostomy. There is no evidence for a bowel obstruction. Multiple loculated peritoneal fluid collections are present. There is mild peritoneal enhancement. The larger collections communicate. The largest collections are within the upper quadrants. Left upper quadrant pocket of fluid measures 16.2 x 14.8 cm. There is a loculated 6.4 x 3.8 cm fluid collection along the gastric fundus. A 9.3 x 3 cm anterior pelvic fluid collection is present. A 6.9 x 5.3 cm pelvic fluid collection is present. Surgical drain is within this collection. The gastric wall is edematous without focal thickening. A locule of gas along the posterior aspect of the stomach is noted. The stomach is not distended. Liver, spleen, adrenal glands and pancreas are unremarkable. There is no biliary or pancreatic ductal dilatation. There is heterogeneous enhancement of the kidneys. There is no hydronephrosis. A Mondragon balloon and gas within the bladder noted. There is diffuse anasarca. A small amount of fluid within the subcutaneous tissues of the laparotomy site are noted. IMPRESSION: 1. Status post subtotal colectomy with right lower quadrant ileostomy. Surgical drain in place. Multiple loculated gas and fluid containing peritoneal fluid collections, as described above. The amount of gas is slightly greater than expected 6 days following surgery although is probably postsurgical or related to the indwelling drain. A perforated hollow viscus would be difficult to completely exclude and continued radiographic follow-up to ensure expected resolution of the gas is recommended. The fluid collections could reflect loculated ascites however developing abscesses could appear similar. 2. No evidence for a bowel obstruction. 3. Diffusely thickened, edematous gastric wall. This raises the possibility of gastritis. 4. Heterogeneous enhancement of the kidneys, a nonspecific finding which could be correlated with renal function. 5. Evidence for volume overload. Anasarca. Small to moderate left and small right pleural effusions. Extensive associated lower lobe opacities favor compressive atelectasis. ACT 112: Negative or not required by law. Electronically signed by: Andres Amanda M.D. 07/05/2023 2:43 PM Drainage Catheter Insertion 07/06/23 12:00 CT-guided left upper quadrant fluid collection drain placement INDICATION: Left upper quadrant fluid collection PROCEDURE: Procedure and risks were explained. The procedure was deemed medically necessary by the attending physician secondary to patient confusion. A final timeout was completed. The patient was placed supine on the CT exam table. The left upper quadrant was prepped and draped in sterile fashion. 1% buffered lidocaine was utilized for skin anesthesia. Utilizing CT guidance, a 10 Croatian locking pigtail catheter was advanced into the left upper quadrant pocket of fluid. 20 mL of clear yellow fluid was aspirated and sent to lab for culture analysis. The pigtail catheter was then sutured to the skin with 2-0 silk and placed to suction bag drainage. Post-CT imaging demonstrated adequate catheter position without immediate complication. The patient tolerated the procedure well. Vital signs will be monitored on the floor. IMPRESSION: Left upper quadrant drain placement as detailed above. Performed, dictated, and signed by Star Waller PA-C; to be co-signed by Dr. Sudhakar Ambrose. Electronically signed by: Sudhakar Ambrose M.D. 07/06/2023 4:17 PM Abdomen/Pelvis CT 07/10/23 14:[address] WITH IV AND ORAL CONTRAST CT DOSE: 1359.37 mGy.cm HISTORY: Acute generalized abdominal pain pt with encephalopathy, previous ruptured bowel TECHNIQUE: Multiaxial CT images of the abdomen and pelvis were performed following the IV administration of 93 cc of Optiray and oral contrast. A dose lowering technique was utilized adhering to the principles of ALARA. COMPARISON STUDY: 07/05/2023 FINDINGS: Unchanged layering pleural effusions with dependent bibasilar consolidation. Cardiomegaly with small pericardial effusion. No pneumatosis. Again noted is moderate pneumoperitoneum which has mildly improved. Postoperative changes are again noted compatible with laparotomy and subtotal colectomy right lower quadrant ileostomy. There is no evidence for a bowel obstruction. Multiple loculated peritoneal fluid collections are present. There is mild peritoneal enhancement. The larger collections again likely communicate with one another. The largest collections are within the upper quadrants. Left upper quadrant pocket of fluid measures 16 x 14 cm, stable. There is a loculated 4.9 x 2.6 cm fluid collection along the gastric fundus, previously 6.4 x 3.8 cm . A 7.1 x 2.4 cm anterior pelvic fluid collection previously measured 9.3 x 3 cm. A 7.1 x 4.6 cm pelvic fluid collection previously measured 6.9 x 5.3 cm Surgical drainage catheter is again noted within this collection. Persistent gastric wall thickening is mildly improved. The stomach is decompressed. The liver, spleen, adrenal glands , mildly distended gallbladder and pancreas are unremarkable. There is no biliary or pancreatic ductal dilatation. There is heterogeneous enhancement of the kidneys which is similar to prior. There is no hydronephrosis. A Mondragon balloon and gas within the bladder noted. There is diffuse anasarca. A small amount of fluid within the subcutaneous tissues of the laparotomy site are noted. No acute fracture identified. IMPRESSION: 1. Postoperative changes of subtotal colectomy with right lower quadrant ileostomy and surgical drainage catheter. 2. Multiple loculated air and fluid filled collections as above are stable to mildly decreased in size from 07/05/2023 with persistent mildly decreased pneumoperitoneum. 3. Persistent edematous gastric wall thickening which is also mildly improved. 4. Nonspecific heterogeneous enhancement of the kidneys again noted. Correlate with urinalysis. 5. Fluid overload. 6. Additional findings as above. ACT 112: Negative or not required by law. The above report was generated using voice recognition software. It may contain grammatical, syntax or spelling errors. Electronically signed by: Abdi Hirsch M.D. 07/10/2023 5:[address] 07/10/23 14:01 CT head/brain wo con CLINICAL HISTORY: 53 years-old Male with confusion. Acutely altered mental status TECHNIQUE: Multiple axial CT images of the head were obtained without contrast. A dose lowering technique was utilized adhering to the principles of ALARA. COMPARISON: None. FINDINGS: No acute intracranial hemorrhage, midline shift, intracranial mass, hydrocephalus, territorial ischemia or abnormal extra-axial collection. The calvarium is intact. The paranasal sinuses, mastoid air cells, and middle ear cavities are clear. IMPRESSION: No acute intracranial abnormality. ACT 112: Negative or not required by law. The above report was generated using voice recognition software. It may contain grammatical, syntax or spelling errors. Electronically signed by: Abdi Hirsch M.D. 07/10/2023 4:53 PM Abdomen/Pelvis CT 07/19/23 08:28 CT SCAN OF THE ABDOMEN AND PELVIS WITH IV CONTRAST CLINICAL HISTORY: Colon perforation and abscess. COMPARISON STUDY: Abdominal CT dated 07/02/2023. TECHNIQUE: Following the IV administration of 93 cc of Optiray 320, CT scan of the abdomen and pelvis is performed from the lung bases to the proximal femora. Images are reviewed in the axial, sagittal, and coronal planes. IV contrast was administered without complication. Oral contrast was utilized. A dose lowering technique was utilized adhering to the principles of ALARA. CT DOSE: 383.47 mGy.cm FINDINGS: Lung bases: The heart is normal in size and without pericardial effusion. There is a small to moderate left pleural effusion with left basilar consolidation. There is scarring/atelectasis the right lung base. Liver: The contrast-enhanced liver is normal in size, contour, and attenuation. There is no intrahepatic biliary ductal dilatation. The hepatic veins and portal veins are patent. Gallbladder: Unremarkable. Spleen: Normal in size and attenuation. An 11 mm hypodensity in the anterior spleen is unchanged. Pancreas: Unremarkable. Adrenal glands: Unremarkable. Kidneys: The contrast enhanced kidneys are normal in size and without hydronephrosis. Enhancement of both kidneys is heterogeneous, left more so than right. Abdominal vasculature: The abdominal aorta is normal in course and caliber noting moderate atherosclerotic calcification. Bowel: There is postoperative change from subtotal colectomy. Tisha pouch is noted in the pelvis. No bowel obstruction is seen. Enteric contrast reaches the ostomy. Peritoneum: There is an anterior abdominal wound below the umbilicus. There is a focal hernia which contains fluid. There is free fluid contained within intraperitoneal collections. There are numerous intra-abdominal fluid collections. A thick-walled and peripherally enhancing gas and fluid containing collection in the left upper quadrant extending from the diaphragm to below the spleen measures approximately 10 x 12.5 x this has modestly decreased in size from 07/10/2023. 12.5 cm as seen on axial image #70. This contains a percutaneous drainage catheter. A small multiloculated fluid collection along the gastric fundus has decreased in size from previous. The residual collection measures approximately 4 x 3.5 cm as seen on axial image #63. A fluid collection below the gallbladder on image #128 has also modestly decreased in size. This measures approximately 4.5 x 5.5 x 2.5 cm as seen on image #128. A thick-walled rim-enhancing gas and fluid containing collection in the pelvis above the sigmoid has modestly decreased in size from previous. This measures approximately 5 x 5 x 7 cm. The surgical drain within this collection seen previously has been removed. A serpiginous fluid collection in the ventral pelvis just deep to the peritoneal reflection extending from images #211 through 234 has also decreased in size from previous. Lymphadenopathy: None. Pelvic viscera: The bladder is mildly distended and contains intraluminal gas. The prostate and seminal vesicles are normal as imaged. Skeletal structures: No lytic or blastic lesions are seen. IMPRESSION: 1. There are numerous large residual intra-abdominal fluid collections as above which are typical for abscesses. These have modestly decreased in size as compared to 07/10/2023. 2. A surgical drain is present within the largest collection in the left upper quadrant around the spleen. The surgical drain in the pelvis seen on 07/10/2023 has been removed. 3. Small to moderate left pleural effusion with left basilar consolidation. 4. Heterogeneous enhancement of both kidneys is nonspecific and can be seen with infection/pyelonephritis. Correlate with clinical findings/urinalysis. 5. Ventral abdominal wound with postsurgical change from subtotal colectomy and right lower quadrant ileostomy. 6. There is no bowel obstruction. 7. There is nonspecific gas within the bladder lumen. 8. Additional findings as above. ACT 112: Negative or not required by law. Electronically signed by: Hu Suarez M.D. 07/19/2023 2:14 PM Drainage Catheter Insertion 07/23/23 11:31 CT-guided left upper quadrant abscess drain exchange INDICATION: Dislodged/kinked left upper quadrant abscess drain with residual abscess collection PROCEDURE: Procedure and risks were explained. Informed consent was obtained. A final timeout was completed. The patient was placed supine on the CT exam table. The existing left upper quadrant drain and an abdomen was prepped and draped in sterile fashion. 1% lidocaine was utilized for skin anesthesia. Utilizing CT guidance, a 0.035 Amplatz wire was introduced through the existing [address] imaging demonstrated adequate wire position. A new 10 Croatian locking pigtail catheter was advanced over the wire and secured to the skin with 2-0 silk. The pigtail catheter was flushed multiple times and placed to suction bag drainage. The patient tolerated the procedure well. Postprocedure CT imaging demonstrates adequate pigtail position. Vital signs will be monitored postprocedure. IMPRESSION: Replacement of the left upper quadrant abscess drain as detailed above. Performed, dictated, and signed by Star Waller PA-C; to be co-signed by Dr. Sudhakar Ambrose. Electronically signed by: Sudhakar Ambrose M.D. 07/23/2023 9:48 PM Renal Ultrasound 07/27/23 07:36 US renal/blad retro comp CLINICAL HISTORY: acute kidney failure eval obstruction TECHNIQUE: Multiple sonographic real-time images of the kidneys and bladder were obtained. COMPARISON: Comparison is made to CT abdomen pelvis 07/19/2023 FINDINGS: The right kidney measures 10.8 cm in length, and the left kidney measures 11.6 cm in length. The right renal cortex is diffusely echogenic in appearance with diffuse cortical thinning. No hydronephrosis is identified. No renal lesion is identified. The left renal cortex is diffusely echogenic in appearance, with diffuse cortical thinning. No hydronephrosis is identified. No renal lesion is identified. Bladder wall is thickened. There is debris noted in the bladder. No large intraluminal mass is seen. IMPRESSION: 1. Echogenic appearance of the bilateral kidneys which may be present in medical renal disease. 2. Debris in the bladder and thickened bladder wall, correlation with cystitis is recommended. ACT 112: Negative or not required by law. Electronically signed by: Sudhakar Ambrose M.D. 07/27/2023 8:59 AM KUB X-Ray 07/31/23 12:28 KUB CLINICAL HISTORY: Early satiety. Colostomy. FINDINGS: 2 AP supine abdominal radiographs are correlated with abdominal CT dated 07/19/2023. A percutaneous drain projects over the left upper quadrant. No bowel obstruction is seen. An ostomy projects over the right lower quadrant and suture material projects over the pelvis. No evidence of intraperitoneal free air is seen on these supine images. There are no abnormal abdominal calcifications. There is a left pleural effusion with left basilar consolidation. IMPRESSION: 1. Nonobstructed bowel gas pattern. 2. A surgical drain projects over the left upper quadrant. 3. Left pleural effusion with left basilar consolidation. Electronically signed by: Hu Suarez M.D. 07/31/2023 2:16 PM Abdomen/Pelvis CT 08/02/23 08:01 CT SCAN OF THE ABDOMEN AND PELVIS WITHOUT IV CONTRAST CLINICAL HISTORY: Follow-up abscesses. COMPARISON STUDY: Abdominal CT dated 07/19/2023. TECHNIQUE: Unenhanced CT scan of the abdomen and pelvis is performed from the lung bases to the proximal femora. Images are reviewed in the axial, sagittal, and coronal planes. IV contrast was not administered. Note that the examination was performed in significantly suboptimal fashion without oral and IV contrast. A dose lowering technique was utilized adhering to the principles of ALARA. CT DOSE: 387.83 mGy.cm FINDINGS: Lung bases: The heart is normal in size noting a small pericardial effusion. There is diminished attenuation of the cardiac blood pool as compared to the myocardium suggesting anemia. Emphysematous changes noted. There are moderate left and small right pleural effusions with dependent consolidation. Liver: The unenhanced liver is normal in size, contour, and attenuation. There is no intrahepatic biliary ductal dilatation. Gallbladder: Distended but otherwise normal in appearance. Spleen: Normal in size and attenuation. An 11 mm hypodensity in the anterior spleen is unchanged. Pancreas: The unenhanced pancreas is normal in size. Scattered parenchymal calcifications suggest chronic pancreatitis. Adrenal glands: Unremarkable. Kidneys: The unenhanced kidneys are normal in size and without hydronephrosis. No renal calculi are identified. There is no evidence of contour deforming mass lesion. Abdominal vasculature: The abdominal aorta is normal in course and caliber noting moderate atherosclerotic calcification. Bowel: There is postoperative change from subtotal colectomy. A Tisha pouch is noted in the pelvis. No bowel obstruction is seen. Peritoneum: There is a wound in the infraumbilical abdominal wall. Again seen are numerous intraperitoneal fluid collections. A thick-walled gas and fluid containing crescentic collection in the left upper quadrant extending from the left hemidiaphragm to below the spleen has decreased in size from previous, measuring approximately 9 x 9 x 7 cm as seen on axial image #704 This contains a percutaneous drainage catheter. A small multiloculated fluid collection along the gastric fundus has also decreased in size from previous. The residual collection is not well visualized without IV contrast, likely measuring at least 3 cm as seen on image #57. A fluid collection below the gallbladder has also decreased in size. This measures up to 2.5 cm seen on image #144. A thick-walled gas and fluid containing collection in the pelvis above the sigmoid has decreased in size from previous. This measures approximately 2.5 x 1.5 x 5 cm. Lymphadenopathy: None. Pelvic viscera: The bladder is distended and contains intraluminal gas. The prostate and seminal vesicles are normal as imaged. Skeletal structures: No lytic or blastic lesions are seen. Soft tissues: There is body wall edema. IMPRESSION: 1. Significantly suboptimal examination without oral and IV contrast. 2. There are numerous residual intra-abdominal fluid collections as detailed above which are typical for abscesses. These have significantly decreased in size as compared to 07/19/2023. 3. A surgical drain is present within the largest collection in the left upper quadrant around the spleen. 4. Small right and moderate left effusion with left basilar consolidation. These have increased in size to previous. 5. There is increasing body wall edema from previous. 6. Ventral abdominal wound with postsurgical change from subtotal colectomy and right lower quadrant ileostomy. 7. There is nonspecific gas within the bladder lumen. 8. Additional findings as above. ACT 112: Negative or not required by law. Electronically signed by: Hu Suarez M.D. 08/02/2023 12:[address] 08/09/23 00:35 Exam(s): CT HEAD Without Contrast EXAM: CT Head Without Intravenous Contrast CLINICAL HISTORY: Expressive aphasia. TECHNIQUE: Axial computed tomography images of the head/brain without intravenous contrast. CTDI is 38.78 mGy and DLP is 625.8 mGy-cm. Automated exposure control was utilized for the study. A dose lowering technique was utilized adhering to the principles of ALARA. COMPARISON: CT head without contrast dated 07/10/2023 FINDINGS: Brain: Unremarkable. No hemorrhage. No significant white matter disease. No edema. Ventricles: Unremarkable. No ventriculomegaly. Bones/joints: Unremarkable. No acute fracture. Soft tissues: Unremarkable. Sinuses: Unremarkable as visualized. No acute sinusitis. Mastoid air cells: Unremarkable as visualized. No mastoid effusion. IMPRESSION: No acute intracranial process or significant alteration when compared to the previous examination. Electronically signed by: Star De León MD 08/09/23 01:12 AM Abdomen/Pelvis CT 08/09/23 11:24 CT OF THE ABDOMEN AND PELVIS WITHOUT CONTRAST CLINICAL HISTORY: follow-up abscesses COMPARISON STUDY: CT of the abdomen and pelvis August 02, 2023. TECHNIQUE: Axial images of the abdomen and pelvis were obtained without IV contrast. Images were reviewed in the axial, sagittal, and coronal planes. Automated exposure control was utilized for the study. A dose lowering technique was utilized adhering to the principles of ALARA. FINDINGS: Bilateral pleural effusions, left larger than right, have increased in size since CT of August 02, 2023. The left pleural effusion is moderate-sized. The right is small to moderate. No pneumatosis, free air or portal venous gas is present. Evaluation of the abdomen and pelvis is suboptimal on this unenhanced exam. The left upper quadrant perisplenic fluid collection contains gas and a surgical drain, as before. This collection is similar in size to CT of August 02, 2023. This measures 9.3 x 5.5 cm. The additional smaller fluid collections within the abdomen and pelvis have slightly decreased in size since prior CT. A pelvic fluid collection on image 265 measures 4 x 1.2 cm. Small right retroperitoneal fluid collections are similar to prior CT. No new fluid collections are present. There is no evidence for a bowel obstruction status post subtotal colectomy right lower quadrant ileostomy. Anasarca has increased. There is no hydronephrosis. Presacral edema is likely related to volume overload. Mesenteric edema is also likely related to volume overload. No biliary or pancreatic ductal dilatation is present. Pancreatic parenchymal calcifications are again noted. Gastric wall thickening is noted. This is been shown on prior exams. IMPRESSION: 1. No significant change in size of the left upper quadrant fluid and gas containing collection since CT of August 02, 2023. This contains a percutaneous drain. 2. Otherwise, the remainder of the smaller abdominal and pelvic fluid collections have decreased in size since prior CT. No new fluid collections. 3. Increase in the moderate left and [id number] right pleural effusions. Associated airspace opacities favor atelectasis. 4. Increase in anasarca. 5. No evidence for a bowel obstruction status post subtotal colectomy and right lower quadrant ileostomy. 6. Gastric fold thickening which has been shown on prior studies. This may reflect gastritis. ACT 112: Negative or not required by law. Electronically signed by: Andres Amanda M.D. 08/09/2023 7:42 PM Chest X-Ray 08/10/23 10:15 SINGLE VIEW CHEST CLINICAL HISTORY: Congestive heart failure. FINDINGS: An AP, portable, upright chest radiograph is compared to study dated 07/01/2023. The examination is degraded by portable technique and patient rotation. The right PICC line seen on 07/01/2023 has been removed. A left PICC line has been placed. The tip of the catheter projects over the right atrium just above the level of the diaphragm. The heart is enlarged. There is pulmonary vascular congestion with evidence of interstitial edema. There are low small pleural effusions, left larger than right with dependent consolidation No pneumothorax is seen. The skeletal structures are osteopenic. The bony thorax is grossly intact. IMPRESSION: 1. Cardiomegaly with evidence of congestive failure and pulmonary edema. 2. Left larger than right pleural effusions with dependent consolidation. 3. A left PICC line is in place as above. The tip projects over the right atrium. ACT 112: Negative or not required by law. Electronically signed by: Hu Suarez M.D. 08/10/2023 12:51 PM Chest X-Ray 08/11/23 03:32 XR chest 1V portable CLINICAL HISTORY: Increased O2 requirement COMPARISON STUDY: Chest CT June 17, 2023. Chest radiograph August 10, 2023. FINDINGS: A left PICC is in place. There is no pneumothorax. Moderate left and right pleural effusions are present. Left pleural effusion has slightly increased in size. Pulmonary edema has slightly progressed. Persistent perihilar and bibasilar opacities are likely related to pulmonary edema or atelectasis. IMPRESSION: 1. Moderate left pleural effusion, slightly increased in size. Small right pleural effusion. 2. Progression of pulmonary edema. 3. Perihilar and bibasilar opacities are likely related to alveolar edema and atelectasis. ACT 112: Negative or not required by law. Electronically signed by: Andres Amanda M.D. 08/11/2023 6:31 AM Chest X-Ray 08/13/23 06:00 XR chest 1V portable CLINICAL HISTORY: CHF TECHNIQUE: Single frontal radiograph of the chest was obtained. Comparison: Comparison is made to chest radiograph 08/11/2023 FINDINGS: No lines and tubes are seen. The cardiomediastinal silhouette is stable. Interval improvement in pulmonary edema with possibly residual edema versus airspace opacities. Atelectasis is noted in the right midlung. Moderate left pleural effusion and likely small right pleural effusion. IMPRESSION: 1. Stable moderate left and small right pleural effusion. 2. Interval improvement in pulmonary edema with significant residual edema versus aspiration/atelectasis/pneumonia. ACT 112: Negative or not required by law. Electronically signed by: Sudhakar Ambrose M.D. 08/13/2023 8:07 AM Abdomen/Pelvis CT 08/17/23 13:17 CT SCAN OF THE ABDOMEN AND PELVIS WITHOUT IV CONTRAST CLINICAL HISTORY: Follow-up abscesses. COMPARISON STUDY: Prior abdominal CT scans, most recently dated 08/09/2023. TECHNIQUE: Unenhanced CT scan of the abdomen and pelvis is performed from the lung bases to the proximal femora. Images are reviewed in the axial, sagittal, and coronal planes. IV contrast was not administered. Note that the examination was performed in significantly suboptimal fashion without oral and IV contrast. A dose lowering technique was utilized adhering to the principles of ALARA. CT DOSE: 580.18 mGy.cm FINDINGS: Lung bases: The heart is normal in size noting trace pericardial effusion. There is diminished attenuation of the cardiac blood pool as compared to the myocardium suggesting anemia. Emphysematous change is noted. There are moderate pleural effusions with dependent consolidation. Liver: The unenhanced liver is normal in size, contour, and attenuation. There is no intrahepatic biliary ductal dilatation. Gallbladder: Mildly distended but otherwise normal in appearance. Spleen: Normal in size and attenuation. An 11 mm hypodensity in the anterior spleen is unchanged. Pancreas: The unenhanced pancreas is normal in size. Scattered parenchymal calcifications suggest chronic pancreatitis. Adrenal glands: Unremarkable. Kidneys: The unenhanced kidneys are normal in size and without hydronephrosis. No renal calculi are identified. There is no evidence of contour deforming mass lesion. Abdominal vasculature: The abdominal aorta is normal in course and caliber noting moderate to advanced atherosclerotic calcification. A left femoral approach central venous catheter is new from previous. Bowel: There is postoperative change from subtotal colectomy with right lower quadrant ileostomy. A Tisha pouch is noted in the pelvis. The rectosigmoid colon appears thick walled. No bowel obstruction is seen. Peritoneum: There is a wound/scar in the infraumbilical abdominal wall. Again seen are numerous intraperitoneal fluid collections. A thick-walled gas and fluid containing crescentic collection in the left upper quadrant extending from the left hemidiaphragm to below the spleen history for previous. This measures approximately 10 x 6.5 cm as seen on image #73. A percutaneous drainage catheter is seen along the inferior aspect of this collection. The small fluid collection along the gastric fundus has almost completely resolved. A tiny residual fluid collection along the inferior aspect of the gallbladder on image #141 likely measures 2.4 cm. This is not well assessed without IV contrast. A pocket of fluid in the right lower quadrant on image #209 measures 2.2 cm. A thick-walled gas and fluid containing collection in the pelvis above the sigmoid has modestly decreased in size from previous. This measures approximately 3.7 x 1.3 cm chest seen on image #256. Lymphadenopathy: None. Pelvic viscera: The bladder wall is circumferentially thickened with surrounding inflammation. The prostate and seminal vesicles are normal as imaged. Skeletal structures: No lytic or blastic lesions are seen. Soft tissues: There is body wall edema. IMPRESSION: 1. Significantly suboptimal examination without oral and IV contrast. 2. Again seen are numerous residual intra-abdominal fluid collections as detailed above which are typical for abscesses. These are overall similar in appearance to the 08/09/2023 examination. 3. A surgical drain is present within the largest collection in the left upper quadrant around the spleen. 4. Moderate pleural effusions with dependent consolidation. These are similar to previous. 5. The bladder wall appears circumferentially thickened with surrounding inflammation. Correlate with urinalysis. 6. Ventral abdominal wound/scar with postsurgical change from subtotal colectomy and right lower quadrant ileostomy. 7. Question wall thickening of the rectosigmoid stump. Correlate clinically. 8. Anasarca of the body wall. 9. Additional findings as above. ACT 112: Negative or not required by law. Electronically signed by: Hu Suarez M.D. 08/17/2023 3:35 PM Limited or Localized CT 08/17/23 16:06 CT limited or localized study CT DOSE: 252.53 mGy.cm CLINICAL HISTORY: intra-abdominal abscess drainage . Percutaneous drain removed. TECHNIQUE: Multiaxial CT images of the abdomen were performed without contrast. A dose lowering technique was utilized adhering to the principles of ALARA. COMPARISON STUDY: CT guided drainage 07/23/2023. Abdomen and pelvis CT 08/17/2023. FINDINGS: Moderate bilateral pleural effusions with posterior consolidation at the bilateral lower lobes. This favors compressive atelectasis. This remains unchanged. A catheter tip is seen within the distal SVC. The heart is normal in size. No acute fractures identified. Moderate body wall edema again noted. The unenhanced liver, gallbladder, pancreas, and adrenal glands unremarkable. No renal stones or hydronephrosis. Partially visualized right lower quadrant ostomy again noted. No dilated loops of bowel to suggest an obstruction. No retroperitoneal lymphadenopathy or hematoma. Mild calcified plaque within the normal caliber abdominal aorta. There is again noted a loculated left upper quadrant fluid collection adjacent to the spleen which contains a few punctate foci of fat or gas. The percutaneous drainage catheter has been removed in the interval. The collection is similar in size and currently measures 8.2 x 2.4 cm. This study was performed for reevaluation of the collection to assess for possible repeat drain/catheter placement. However, the access window was considered too small to safely drain. Therefore, the procedure was not performed. IMPRESSION: The left upper quadrant collection is similar in size and currently measures 8.2 x 2.4 cm. This study was performed for reevaluation of the collection to assess for possible repeat drain/catheter placement. However, the access window was considered too small to safely drain. Therefore, the procedure was not performed. ACT 112: Negative or not required by law. Electronically signed by: Lior Richardson M.D. 08/18/2023 1:[address] 08/20/23 08:[address] DOSE: 547.75 mGy.cm HISTORY: altered mental status TECHNIQUE: Multiaxial CT images of the head were performed without the use of intravenous contrast. Automated exposure control was utilized for this study. A dose lowering technique was utilized adhering to the principles of ALARA. Comparison: Head CT 08/09/2023. Findings: There is a 2.7 cm retention cyst within the left maxillary sinus. A right moderate mastoid effusion has increased in size. The left mastoid air cells are clear. The calvarium and skull base are intact. 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 There is no mass, hematoma, midline shift or acute infarct. The ventricles and sulci are within normal limits. Impression: 1. No acute infarct or intracranial hemorrhage. 2. Moderate right mastoid effusion which has slightly increased in size. ACT 112: Negative or not required by law. Electronically signed by: Lior Richardson M.D. 08/20/2023 9:40 AM Abdomen/Pelvis CT 08/27/23 12:[address] WITHOUT CONTRAST CT DOSE: 340.27 mGy.cm HISTORY: re-eval abscesses of abdomen. TECHNIQUE: Multiaxial CT images of the abdomen and pelvis were performed without contrast. A dose lowering technique was utilized adhering to the principles of ALARA. COMPARISON STUDY: Abdomen and pelvis CT 08/17/2023. Abdominal CT 08/18/2023. FINDINGS: The right pleural effusion has resolved in the interval. A small to moderate left pleural effusion has also decreased in size. Consolidation within the left lower lobe posteriorly favors compressive atelectasis from the pleural effusion. No acute fractures identified. Hypodense blood pool suggests underlying anemia. Prior midline incision. Suboptimal evaluation of the abdomen and pelvis due to the lack of intravenous and oral contrast. The unenhanced liver, gallbladder, and adrenal glands unremarkable. There are few punctate calcifications within the pancreas. No hydronephrosis. No renal or ureteral stones. Mild bilateral perinephric edema persists. Enlargement of the kidneys which could represent underlying renal insufficiency. No retroperitoneal hematoma or lymphadenopathy. Calcified plaque within the normal caliber abdominal aorta. The prostate gland is mildly enlarged. Normal bladder. Rectal wall thickening may be due to underdistention. Mild body wall edema is noted. Prior subtotal colectomy with a right lower quadrant ileostomy. No dilated loops of bowel to suggest an obstruction. Questionable mild thickening within multiple small bowel loops within left side the abdomen which could be due to underdistention. A low-grade enteritis could also a similar appearance. There is mild mesenteric edema again noted. The left upper quadrant/perisplenic fluid collection is again noted stable and is similar in size compared the prior study. This continues to measure approximately 8.2 x 2.4 cm. A few additional scattered small fluid collections within the abdomen seen on the prior studies have improved/resolved in the interval. There is a focal hypodense focus which appears to be within the wall of the stomach on image 111. This measures 1.9 cm, previously measuring 1.3 cm. This could represent a small intramural fluid collection/abscess. IMPRESSION: 1. Decrease in size in the small to moderate left pleural effusion. The right pleural effusion has resolved in the interval. 2. The left upper quadrant/perisplenic fluid collection is similar in size compared to the prior study. This measures 8.2 x 2.4 cm. 3. A few additional scattered smaller fluid collections within the abdomen seen on the prior studies have also decreased in size/resolved in the interval. 4. Rectal wall thickening which has improved. 5. Mild thickening of multiple small bowel loops within left side of the abdomen. This is consistent with a nonspecific enteritis. 6. A 1.9 cm hypodense focus which appears to be within the wall of the stomach. This is slightly increased in size compared to the prior study. This could represent a small intramural abscess. 7. Additional findings as described above. ACT 112: Negative or not required by law. Electronically signed by: Lior Richardson M.D. 08/27/2023 1:49 PM Abdomen/Pelvis CT 09/03/23 08:00 CT abd pelvis oral con only CLINICAL HISTORY: eval stomach wall fluid collection and others TECHNIQUE: Helical axial images of the abdomen and pelvis were obtained. Automated dose lowering techniques and/or adjustment according to patient size were utilized for this exam. This exam was performed without intravenous contrast. CT DOSE: 390.44 mGy.cm COMPARISON: Comparison is made to CT abdomen pelvis 08/27/2023 FINDINGS: Lower chest: Moderate left and small right pleural effusion is seen with underlying atelectasis. Incidental note is hypodensity of the blood flow compared to cardiac wall. Liver: Unremarkable. No focal lesions are seen. Gallbladder and biliary tree: No calcified gallstones. Normal caliber wall. No intra- or extrahepatic biliary ductal dilation. Pancreas: Unremarkable, no focal lesions. Spleen: Unremarkable. Adrenals: Unremarkable. Kidneys and ureters: Unremarkable. Bladder: Limited evaluation due to underdistention. Reproductive organs: Unremarkable. Bowel: Postsurgical history of subtotal colectomy with a right lower quadrant ileostomy. No evidence of obstruction. There is thickening of the gastric wall, particularly proximally, without definite drainable fluid collection. Lymph nodes Retroperitoneal: Unremarkable. Pelvic: Unremarkable. Mesenteric: Unremarkable. Peritoneum: Left upper quadrant/perisplenic fluid collection is unchanged. Minimal peritoneal stranding and tiny residual abdominal fluid is seen. Vessels: Atherosclerotic calcifications are seen. Abdominal wall: Unremarkable. Bones: Degenerative changes in the visualized spine. IMPRESSION: 1. Within the limits of a exam performed without intravenous contrast, there is no drainable fluid collection in the gastric wall. There is prominence of the proximal gastric wall which may be secondary to underdistention or gastritis. 2. Redemonstration of left upper quadrant fluid collection. 3. Moderate left and small right pleural effusions, slightly increased from prior exam. 4. Anemia. 5. Additional findings as above. ACT 112: Negative or not required by law. Electronically signed by: Sudhakar Ambrose M.D. 09/03/2023 1:28 PM KUB X-Ray 09/07/23 08:21 KUB CLINICAL HISTORY: Vomiting. COMPARISON STUDY: CT of the abdomen and pelvis September 03, 2023. FINDINGS: Right lower quadrant ileostomy is present. Several bowel anastomoses are noted. The bowel gas pattern is normal. Although sensitivity is diminished on supine exam, there is no evidence for free air. The amount of stool is within normal limits. IMPRESSION: No evidence for a bowel obstruction. ACT 112: Negative or not required by law. Electronically signed by: Andres Amanda M.D. 09/07/2023 9:36 AM Abdomen/Pelvis CT 09/14/23 15:[address] WITHOUT CONTRAST CT DOSE: 348.27 mGy.cm HISTORY: Acute left upper quadrant abdominal pain h/o LUQ fluid collection, interval change TECHNIQUE: Multiaxial CT images of the abdomen and pelvis were performed without contrast. A dose lowering technique was utilized adhering to the principles of ALARA. COMPARISON STUDY: CT 09/03/2023 08/27/2023 FINDINGS: Decreased attenuation of the cardiac blood pool again noted suggestive of probable anemia. Trace right pleural effusion is decreased in size from prior. Moderate left pleural effusion is generally stable along with bibasilar left greater than right atelectasis. No free air. The unenhanced spleen, gallbladder, adrenal glands and liver appear unremarkable. Scattered punctate calcifications of the pancreas suggestive of chronic pancreatitis. There is continued decreased size of the perisplenic fluid collection approximate 6.3 x 1.2 cm. This measured 8.3 x 2.4 cm on the 08 27 2023 study. Nonspecific bilateral perinephric stranding. No hydronephrosis. Mildly distended urinary bladder. Mild prostatomegaly. Atherosclerosis of the aorta without aneurysm. There is no new lymphadenopathy identified. There is persistent gastric wall thickening which continues to improve from the prior study. No intramural fluid collections involving the stomach. Prior subtotal colectomy with right lower quadrant ileostomy. No bowel obstruction or bowel wall thickening. Mesenteric and generalized body wall edema. No acute fracture. IMPRESSION: 1. Persistent mesenteric and body wall edema with stable moderate left pleural effusion and decreased size of the now trace right pleural effusion. The previously described perisplenic fluid collection continues to decrease in size as above. 2. Subtotal colectomy with right lower quadrant ileostomy. 3. No bowel obstruction or bowel wall thickening. 4. Additional findings as above. ACT 112: Negative or not required by law. The above report was generated using voice recognition software. It may contain grammatical, syntax or spelling errors. Electronically signed by: Abdi Hirsch M.D. 09/14/2023 4:45 PM Extremity Venous Study 09/19/23 19:01 Exam(s): US VENOUS LEFT UPPER EXTREMITY EXAM: US Duplex Left Upper Extremity Veins CLINICAL HISTORY: Reason for exam: superficial clot vs DVT LUE. TECHNIQUE: Real-time duplex ultrasound scan of the left upper extremity veins integrating B-mode two-dimensional vascular structure, Doppler spectral analysis, color flow Doppler imaging and compression. COMPARISON: None. FINDINGS: Deep veins: Unremarkable. No DVT in the internal jugular, subclavian, axillary, or brachial veins. The veins demonstrate normal color flow, are normally compressible, with normal phasic flow and/or augmentation response. There is nonspecific slow flow within the subclavian vein. Superficial veins: There is partial compressibility within the left basilic vein with partial color flow and internal echoes consistent with partially occlusive thrombus. There is absent compressibility within the left cephalic vein extending from mid humerus to the mid forearm with absent flow consistent with Mondragon occlusive thrombus. Soft tissues: No acute findings. IMPRESSION: 1. No ultrasonographic evidence of deep venous thrombosis involving the left upper extremity. 2. Superficial thrombosis of the basilic and cephalic vein as described. 3. Nonspecific slow flow through the subclavian vein with no thrombus. Electronically signed by: Lluvia Agarwal MD 09/20/23 00:57 AM 09/22/23 Range/Units 09:00 Sodium 137 (136-145) mmol/L Potassium 4.0 (3.5-5.1) mmol/L Chloride 107 (98-107) mmol/L Carbon Dioxide 22 (21-32) mmol/L Anion Gap 8 (3-11) BUN 45 H (6-23) mg/dl Creatinine 2.36 H D (0.6-1.4) mg/dl Est Cr Clr Drug Dosing 23.5 ml/min Est GFR ( Amer) 34.9 ml/min Est GFR (Non-Af Amer) 30.1 ml/min BUN/Creatinine Ratio 19.1 (10-20) Glucose 136 H (70-99(Fasting)) mg/dl Calcium 8.9 (8.6-10.3) mg/dl Phosphorus 4.4 (2.5-4.9) mg/dl Magnesium 1.8 (1.7-2.4) mg/dl 09/21/23 05:40 09/22/23 09:00 Hospital Course (1) Perforated abdominal viscus: Presented with free air and signs of intra-abdominal abscess/fluid collection formation on 06/28/23. This was in the setting of recent colonoscopy on 06/15/23 which showed signs of severe, pancolitis. Biopsies were c/w Ulcerative colitis. Went to OR on 06/28/23 with subtotal colon resection with rectal stump remaining along with ileostomy formation. Three areas of perforation were identified, abscess and feculent material seen. Pseudomonas, MSSA, and Enterococcus faecium as well as Mariely albicans isolated from intra-op cultures. He had a prolonged hospital course. He is nearly 3 months post-op from his extensive exploratory laparotomy surgery performed on 06/28/23. At this point he has RLQ ileostomy and his abdominal incision has completely healed. He has had persistent LUQ abdominal fluid collection and associated gastric wall thickening that has not been amenable to percutaneous drainage by IR at this facility or at tertiary care facility. This has been treated with a prolonged course of broad-spectrum antibiotics and the fluid collection is decreasing based on most recent CT abdomen 09/14/23. "There is continued decreased size of the perisplenic fluid collection approximate 6.3 x 1.2 cm. This measured 8.3 x 2.4 cm on the August 2023 study." Discontinued metronidazole after completing course on 08/10. Originally treated with cefepime changed to IV Zosyn 08/10 due to concern for cefepime induced neurotoxicity. Original plan was to continue daptomycin, Zosyn, and renally adjusted fluconazole through September 19, 2023. However, my colleague spoke with ID 09/17 and they advise to continue the above antibiotics beyond 09/19 as the fluid collection has NOT resolved (although has gotten smaller) ID recommended to recheck another CT a/p in 2-3 weeks. 2 weeks will be 10/04/23 Weekly monitoring labs while on IV antibiotics: CBC with diff, CMP, CK, ESR, CRP (2) Abdominal pain: He continues with mild abdominal pain often with eating. He often feels full in his abdomen as well. These symptoms have improved since starting Creon for chronic pancreatitis. Symptoms also improved with additional acid reduction. Pain could be gastric in etiology given the ongoing gastric wall thickening seen on CT. However, radiology does mention the gastric abnormality HAS improved over serial CTs. (CT was repeated 09/14/23). Of note - his pain coupled with anorexia has led to weight loss and failure to thrive over the last couple of months. He was treated with PPN for 14 days through 09/19/23. Currently tolerating general diet and his weight has been stable since 09/02/24. gastroenterology saw patient last on 09/20 - deferred EGD, advised ongoing PPI + carafate (which nephrology advised against due to aluminum accumulation in DERIK); pepcid BID added by GI. Outpatient EGD recommended. (3) Acute kidney injury: First noted 07/25/23 ATN suspected as cause of DERIK OSWALDO from CT scans also possible Ultimately developed volume overload in setting of his DERIK Never had renal recovery to date, remains non-oliguric but BUN/Cr rises quickly between dialysis sessions dialysis started on 08/12 continues on HD Permcath/Tunneled HD line placed 09/01/2023 appreciate nephrology assistance Last HD 09/22/23 (4) Chronic pancreatitis: as seen on CT abd/pelvis (calcifications of pancreas seen) started creon 2 capsules with meals, 1 with snacks prn can't exclude component of acute pancreatitis as prior lipase levels were normal and amie to peak of 209 late August lipase level is trending down, now 120 on 09/21 allowed trial of general diet (instead of low fat) since his intake is low regardless, increased palatability will be important (5) Abnormal CT scan, stomach: * perisplenic fluid collection continues to decrease in size * gastric wall continues to appear abnormal * pancreatic calcifications noted c/w chronic pancreatitis see discussion above GI saw patient 09/20 - inpatient EGD deferred, pepcid added to his PPI outpatient EGD recommended (6) Ulcerative colitis: Patient with daliey ulcerative colitis diagnosed by colonoscopy 06/2023 Now status post subtotal colectomy with only rectal stump remaining and has ileostomy No UC treatment at this point but will need continued surveillance for colorectal CA of the rectal stump Will need follow-up with GI as an outpatient for surveillance as well as consideration of EGD (7) Encephalopathy: had acute toxic or metabolic encephalopathy off/on throughout the stay for multifactorial reasons - hospital delirium, insomnia, thiamine deficiency/Wernicke's encephalopathy, renal failure, etc. most recent episode confusion likely toxic from meds (marinol, reglan) - both stopped 09/15/23 resolved ativan made patient worse - it has been stopped Head CT x 2 both negative this admission s/p thigh-dose thiamine earlier in the stay; now on maintenance thiamine 200 mg daily was on antipsychotics earlier in the stay (seroquel, zyprexa) but these were stopped ~09/07/23 (8) Severe protein-calorie malnutrition: 12kg weight loss since May, though stable since 09/03 appetite improved however caloric intake improved PPN stopped 09/20, monitor caloric intake, changed to regular diet cont Creon with meals + snacks needs EGD as outpatient (9) Acute hypoxic respiratory failure: 2nd volume overload resolved (10) Acute blood loss anemia: transfused total 5 units PRBCs this admission B12, folate, iron studies normal TSH mildly elevated and free T4 mildly low - would repeat in a week as outpatient H/H stable, no recent transfusions (11) Hard of hearing: severe hearing impairment Supportive care, wears hearing device (12) Ileostomy in place: functioning well radiographically the ileostomy appears wnl added pancrease for chronic pancreatitis stool output has improved; apx 400 mL/d this week added questran 4gm daily but he is refusing such if he won't take it consider loperamide 1-2x's daily -- if needed (13) Hypertension: cont amlodipine 5mg daily (14) Vitamin D deficiency: 25-OH vit D level = 18 cont vit D 5000 IU daily (15) Mood disorder: is on remeron 15mg HS however, he has widely fluctuating mood swings, thoughts of dying, etc he reports having seen psych many times over the years consider a mood stabilizer such as lamictal or depakote; former likely the better choice or consider low-dose antipsychotic such as zyprexa ODT (tolerated such in the past) consider formal psych consult (16) Superficial thrombophlebitis of left upper extremity: LUE doppler + for cephalic vein and basilic vein thrombosis no DVT however, subclavian vein flow is reduced Eliquis 2.5mg BID x 6 weeks starting 09/21 for symptomatic care elevated LUE and use warm compresses Plan dispo - to [facility] SN[facility]long-term care facility on Friday 09/22 Total Time Total Time Spent Total Time Spent (In Minutes): 25 minutes Discharge Plan Discharge Items [facility] Disposition: [facility] Reason For Visit: PERFORATED BOWEL Discharge Diagnosis: Perforated bowel Activity: Resume your previous activity Weightbearing: Full weightbearing Non-emergency contact: Primary Care Provider Call non-emergency contact if: you have any medication questions and your symptoms worsen Follow-up/Referrals: Sincere LANGSTON [Primary Care Provider] - Diet: Regular Diet Comment: benefits from meals and frequent snacks, nutrition/protein supplement Addtl Attending Provider Instructions: PT and OT evaluate and treat for generalized weakness Routine ileostomy care For ileostomy use 1 3/4 inch wafer and pouch cut to fit stoma. Surround stoma with 2" ostomy ring, apply wafer and pouch. 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 Remove PICC line once IV antibiotics completed Weekly CBC with diff, CMP, CK, CRP, ESR while on IV antibiotics Recommend repeat TSH in 1-2 weeks Continue current antibiotics for 2-3 weeks (2 weeks is 10/04), repeat CT abdomen/pelvis prior to discontinuation of antibiotics, infectious disease follow up for LUQ fluid collection which has been improving on antibiotics and has not been amenable to percutaneous drainage by IR Gastroenterology follow up to consider EGD, routine colorectal cancer surveillance of rectal stump. Continue apixaban through 11/02 (six weeks course) for superficial venous thrombosis Wound care: Upper medial lumbar spine: Clean with normal saline, pat dry, apply Aquacel Ag to wound base and cover with optifoam. Change QOD or PRN for increased drainage. 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 Instructions: Pending Studies at Discharge: No Stand-Alone Forms: [facility] Skilled Items Patient informed of condition?: Yes Discharge Level of Care: Skilled Communicable Disease: No Discharge Prognosis: Improving Lines: PICC Urinary Catheter: No Medications and DC Order Prescriptions: New thiamine HCl (vitamin B1) 100 mg Tablet 200 mg PO DAILY Qty: 0 0RF amlodipine [Norvasc] 5 mg Tablet 5 mg PO QAM Qty: 0 0RF cholestyramine-aspartame [Prevalite] 4 gram Powder In Packet 1 ea PO DAILY Qty: 0 0RF famotidine 20 mg Tablet 20 mg PO BID Qty: 0 0RF piperacillin-tazobactam 4.5 gram recon soln 4.5 g IV Q12H miconazole nitrate [Desenex] 2 % Powder 1 applic EXT BID Qty: 0 0RF mirtazapine 15 mg Tablet 15 mg PO HS Qty: 0 0RF Creon 36,000-114,000- 180,000 unit Capsule,Delayed Release(Dr/Ec) 2 cap PO TIDM Qty: 0 0RF cholecalciferol (vitamin D3) 125 mcg (5,000 unit) Tablet 5,000 unit PO QAM Qty: 0 0RF pantoprazole 40 mg Tablet,Delayed Release (Dr/Ec) 40 mg PO BID Qty: 0 0RF Creon 36,000-114,000- 180,000 unit Capsule,Delayed Release(Dr/Ec) 1 cap PO TID PRNQty: 0 0RF Eliquis 2.5 mg Tablet 2.5 mg PO BID Qty: 0 0RF daptomycin 500 mg recon soln 600 mg IV Q48H Rx Instructions: administer over 30 mins fluconazole in NaCl (iso-osm) 200 mg/100 mL piggyback 200 mg IV DAILY Discontinued mesalamine 800 mg Tablet,Delayed Release (Dr/Ec) 1,600 mg PO TID 30 Days Qty: 180 0RF mesalamine 4 gram/60 mL Enema 4 g W[place] HS 30 Days Qty: 1800 0RF prednisone 20 mg Tablet 40 mg PO DAILY 30 Days Qty: 60 0RF Rx Instructions: Patient is being discharged on 40 mg of prednisone once daily. He will need to be tapered off every week by 5 mg starting 06/25. Discharge Orders: Discharge Order (Routine); Ordered 09/23/23 Ordered By: Lesia Brandt Admission Data Admit Date/Time: 06/28/23 18:21 Attending Provider: Lesia Brandt Admit Provider: Yaya Alicea Primary Care Provider: [facility] Other Providers: Madhuri Perdomo; [facility]; Yaya Alicea; Gregorio Kamara; Mohan Remy; Yaya Arthur; Giovani Saini; Halie Liang; Radha Trotter; Sven Wilhelm; Heidi Hutchinson; Evens Porter; Verónica Abbott; Bozena Bell; Giselle Dasilva; Claudy Vargas; Lesia Patel; Camilla Hart; Wiley Pruitt; Jose Francisco Gage; Simon Finch Coding Level of Care Code None Diagnoses Perforated abdominal viscus R19.8 Abdominal pain R10.9 Acute kidney injury N17.[address] Chronic [address]itis K86.[address] scan, stomach R93.3 Ulcerative pancolitis with abscess K51.014 Ulcerative colitis location: ulcerative pancolitis Digestive disease complication type: with abscess Encephalopathy G93.40 Severe protein-calorie malnutrition E43 Acute hypoxic respiratory failure J96.01 Acute blood loss anemia D62 Bilateral hearing loss, unspecified hearing loss type H91.93 Hearing loss type: unspecified Laterality: bilateral Ileostomy in place Z93.2 Hypertension I10 Vitamin D deficiency E55.9 Mood disorder F39 Superficial thrombophlebitis of left upper extremity I80.8
[2023-09-22] MEDS: MIRTAZAPINE TAB 15 MG TAB PO SCH (20:19)
[2023-09-22] MEDS ORDERED: MELATONIN 3 MG TAB PO PRN (21:29)
[2023-09-22] MEDS: DAPTOmycin 600 MG in SYRINGE 0 ML IV SCH (21:55)
[2023-09-22] MEDS: FLUCONAZOLE 200 MG/100 ML BAG IV SCH (21:55)
[2023-09-23] MEDS: PIPERACILLIN/TAZOBACTAM 4.5 GM in DEXTROSE 5% MINI-B 100 ML IV SCH (02:42)
--- NOTE | 2023-09-23 06:37 | Billing Data ---
Date of Service September 23, 2023 Billing addendum for 09/23/23, day of discharge. Coding Level of Care Code 93708 IN/OBS DISCH 30 MIN/LESS
== END 2023-09-23 07:05 | DRG 853 ==
LOC: ED 09:39 → OR 14:12 → 1E 18:21 → SUATTDRO 18:21 → 4W 07-03 20:43 → 3E 07-11 18:21 → 2W 08-09 03:39 → 2E 08-11 13:00 → 3W 08-31 18:10